=== PATIENT | female | born 1980 | race Caucasian/White ===

== ENCOUNTER → 2018-08-15 14:20 | Outpatient (CLI) | payer MEDICAID, SELFPAY ==
--- NOTE | 2018-08-15 14:28 | RAD_ITS ---
STUDY: X-RAY - RIGHT HAND, ATTENTION RIGHT THUMB. REASON FOR EXAM: Female, 38 years old. Pain following a recent injury. TECHNIQUE: 3 view(s) of the finger were obtained. COMPARISON: None. FINDINGS: Normal metacarpal head. Normal metacarpophalangeal joint. Normal proximal phalanx. Normal distal phalanx. Normal distal interphalangeal joint. RAD/Finger(s) Min 2 Views IMPRESSION: Normal x-ray examination of the finger. Electronically Signed: Luis Carlos Boone MD at 15:10 EDT Tel [phone], Service support ,
== END ==
PROVIDERS: Family Provider Family Medicine; PCP Family Medicine; Referring Provider Family Medicine; Visit Provider Family Medicine
DX: S63.601A Unspecified sprain of right thumb, initial encounter (principal)
CPT/HCPCS: 73140

== ENCOUNTER → 2019-08-14 16:47 | Outpatient (CLI) | payer MEDICAID, SELFPAY ==
[2019-08-14 17:39] LABS: Absolute Lymphocyte Count 1.88 X10^3/uL (0.83-4.51); Absolute Neutrophil Count 3.3 X10^3/uL (2.0-7.7); Basophil# 0.03 X10^3/uL; Basophil% 0.5 % (0-1); Eosinophil# 0.12 X10^3/uL; Eosinophils% 2.1 % (0-5); Hematocrit 39.3 % (37-47); Hemoglobin 13.2 g/dL (12.0-15.0); Lymphocyte # 1.88 X10^3/ul (4.0); Lymphocyte % 32.2 % (19-41); Mean Corp Hgb Conc 33.6 g/dL (32-36); Mean Corpuscular Hgb 31.7 pg (27.0-32.0); Mean Corpuscular Volume 94.5 fL (81-99); Mean Platelet Vol. 9.5 fl (6.2-12.0); Monocyte# 0.49 X10^3/uL; Monocyte% 8.4 % (0-10); NRBC Flagged by Analyzer 0 % (0-5); Neutrophil # 3.28 X10^3/uL (2.7-7.7); Neutrophil % 56.3 % (47-70); Platelet Count 216 K/mm3 (150-450); RBC Distribution Width CV 12.4 % (11.6-14.6); RBC Distribution Width SD 42.6 fl (35.1-43.9); Red Blood Count 4.16 M/mm3 (4.2-5.4); White Blood Count 5.8 K/mm3 (4.4-11.0)
[2019-08-14 18:07] LABS: Hemoglobin A1c 4.6 % (4.2-6.3)
[2019-08-14 18:16] LABS: Vitamin B12 448 pg/mL (211-911)
[2019-08-14 18:25] LABS: ALB/GLOB Ratio 1.3 RATIO (0.9-2.4); AST(SGOT) 12 U/L (15-37); Alanine Aminotransfer ALT/SGPT 14 U/L (13-56); Albumin, Serum 3.9 g/dL (3.2-5.0); Alkaline Phosphatase 60 U/L (45-117); Anion Gap 4 (5-15); BUN 17 mg/dL (7-18); BUN/Creat Ratio 20.2 RATIO (10-20); Calcium,Total 8.6 mg/dL (8.5-10.1); Chloride 107 mmol/L (98-107); Cholesterol 119 mg/dL (200); Creatinine, Serum 0.84 mg/dL (0.55-1.02); EST Glomerular Filtration Rate 80 mL/min (>60); Est Glom Filt Rate - Afr Amer 97 mL/min (>60); Ferritin 26 ng/mL (8-252); Free T3 2.2 pg/mL (2.18-3.98); Globulin 3.1 g/dL (2.2-4.2); Glucose 69 mg/dL (74-106); High Density Lipoprotein 46 mg/dL; Potassium 3.5 mmol/L (3.5-5.1); Sodium Level 139 mmol/L (136-145); T4 Free Direct 0.99 ng/dL (0.76-1.46); Thyroid Stim Hormone (TSH) 1.11 uIU/mL (0.358-3.74); Triglycerides 94 mg/dL; Very Low Density Lipoprotein 19 mg/dL (5-40)
[2019-08-18 12:30] LABS: ANTINUCLEAR ANTIBODIES DIRECT Negative (Negative)
== END ==
PROVIDERS: Family Provider Family Medicine; PCP Family Medicine; Referring Provider Family Medicine; Visit Provider Family Medicine
DX: R53.83 Other fatigue (principal); E16.2 Hypoglycemia, unspecified; Z13.220 Encounter for screening for lipoid disorders
CPT/HCPCS: 36415; 80053; 80061; 82607; 82728; 82746; 83036; 84439; 84443; 84481; 85025; 86038

== ENCOUNTER → 2019-12-01 12:19 | Outpatient (CLI) | payer MEDICAID, SELFPAY ==
[2014-12-30 02:53] VITALS: BMI 24.3
--- NOTE | 2019-12-01 12:23 | RAD_ITS ---
STUDY: X-RAY - ABDOMEN/PELVIS REASON FOR EXAM: Female, 39 years old. low abdominal pain, constipation TECHNIQUE: AP supine and upright views of the abdomen and pelvis. COMPARISON: None. FINDINGS: Normal visualized lung bases. Moderate to abundant fecal debris within the colon. Otherwise nonspecific gas pattern. There is no demonstrated free abdominal air. The visualized liver, spleen and kidneys are grossly normal in size and morphology. Bilateral radiopaque structures within the pelvis suggestive of tubal ligation clips. Otherwise unremarkable soft tissue structures. Normal visualized osseous structures. RAD/Abd Inc Decub and/or Erect IMPRESSION: Nonspecific gas pattern. Electronically Signed: Falguni Fernandez MD at 0:39 EST , Service support ,
== END ==
PROVIDERS: Family Provider Family Medicine; PCP Family Medicine; Referring Provider Family Medicine; Visit Provider Family Medicine
DX: R10.30 Lower abdominal pain, unspecified (principal)
CPT/HCPCS: 74019

== ENCOUNTER 2020-01-04 00:44 | Emergency (ER) | payer MEDICAID, SELFPAY ==
[2019-12-19 11:56] VITALS: BMI 24.3
[2020-01-04 00:45] VITALS: BP 103/60; PULSE 83; RESP 18; TEMP 36.6; O2SAT 100; BMI 19.5
--- NOTE | 2020-01-04 01:12 | ED.VISSUMM ---
- ER Visit Summary Date of Service: 01/04/20 Chief Complaint: Abdominal pain History of Present Illness: The patient is a 39 F who presents with lower abdominal pain that has been getting progressively worse over the past month. Patient states the pain has been constant tonight for the past several hours. Patient states her pain is over her lower abdomen. Patient states she has been taking mag oxide and MiraLAX and has been having daily bowel movements. Patient describes her pain as cramping, aching, and bloating. Patient states nothing makes it better or worse. Patient denies any nausea or vomiting. Patient denies any diarrhea, melena, or hematochezia. Patient denies any dysuria or hematuria. Patient states her last menstrual period was 3 weeks ago. Physical Examination: Vital signs are stable. Patient is afebrile. Patient is in no acute distress. Patient is resting comfortably on the bed. Oral mucosa is pink and moist. Neck is supple. Trachea is midline. There is no JVD. Heart was regular rate and rhythm. Lungs are clear and equal bilaterally. Abdomen is soft. Bowel sounds are normal. There is mild lower abdominal tenderness. There is no rebound or guarding noted. Cranial nerves II through XII are intact. There are no focal motor or sensory deficits noted. Test Results: CBC, comprehensive metabolic profile, urinalysis, and serum hCG were obtained were all within normal limits. Acute abdominal x-rays were obtained. There is a moderate amount of stool in the colon but there is no obstruction noted. Emergency Department Course and Treatment: Patient was given IV fluids here. Patient was ordered Bentyl but she declined. Patient was feeling better on reevaluation. Patient was instructed to follow-up with her primary care physician in 5 to 7 days. Patient was advised that she may need to see a helper shear operator for this. Patient understood and was agreeable with the plan. All questions were answered. Disposition: Discharge home Impression: Abdominal pain This note was generated with [employer] dictation software. It may contain incorrect words, spelling, and punctuation that were not noted in review of the chart prior to signing ED Disposition - Plan for ED Patient: Disposition: Home or Assisted Living Diagnosis: Abdominal pain Instructions: ABDOMINAL PAIN, Unknown Cause, (Female) Referrals: Lisandro Simons MD [Primary Care Provider] - 3-5 Days
[2020-01-04 01:22] LABS: Absolute Lymphocyte Count 2.31 X10^3/uL (0.83-4.51); Absolute Neutrophil Count 2.2 X10^3/uL (2.0-7.7); Basophil# 0.03 X10^3/uL; Basophil% 0.6 % (0-1); Eosinophil# 0.11 X10^3/uL; Eosinophils% 2.1 % (0-5); Hematocrit 41.6 % (37-47); Hemoglobin 14.7 g/dL (12.0-15.0); Lymphocyte # 2.31 X10^3/ul (4.0); Lymphocyte % 44.7 % (19-41); Mean Corp Hgb Conc 35.3 g/dL (32-36); Mean Corpuscular Hgb 32.1 pg (27.0-32.0); Mean Corpuscular Volume 90.8 fL (81-99); Mean Platelet Vol. 9.1 fl (6.2-12.0); Monocyte# 0.53 X10^3/uL; Monocyte% 10.3 % (0-10); NRBC Flagged by Analyzer 0 % (0-5); Neutrophil # 2.18 X10^3/uL (2.7-7.7); Neutrophil % 42.1 % (47-70); Platelet Count 229 K/mm3 (150-450); RBC Distribution Width CV 12.3 % (11.6-14.6); RBC Distribution Width SD 40.5 fl (35.1-43.9); Red Blood Count 4.58 M/mm3 (4.2-5.4); White Blood Count 5.2 K/mm3 (4.4-11.0)
[2020-01-04] MEDS: 0.9% Normal Saline 1,000 ML 1000 ML IV (01:25)
[2020-01-04 01:28] LABS: Internal QC Validated? YES +Cl - CLEAR BKGD; Pregnancy, Serum, hCG Quali. NEGATIVE Negative
[2020-01-04 01:35] LABS: ALB/GLOB Ratio 1.3 RATIO (0.9-2.4); AST(SGOT) 11 U/L (15-37); Alanine Aminotransfer ALT/SGPT 17 U/L (13-56); Albumin, Serum 3.9 g/dL (3.2-5.0); Alkaline Phosphatase 42 U/L (45-117); Anion Gap 5 (5-15); BUN 9 mg/dL (7-18); BUN/Creat Ratio 11.5 RATIO (10-20); Calcium,Total 9.1 mg/dL (8.5-10.1); Chloride 109 mmol/L (98-107); Creatinine, Serum 0.78 mg/dL (0.55-1.02); EST Glomerular Filtration Rate 87 mL/min (>60); Est Glom Filt Rate - Afr Amer 106 mL/min (>60); Glucose 94 mg/dL (74-106); Lipase 286 U/L (73-393); Potassium 3.5 mmol/L (3.5-5.1); Protein, Total 6.9 g/dL (6.4-8.2); Sodium Level 139 mmol/L (136-145)
[2020-01-04 01:45] LABS: Bacteria 0 SEEN /hpf (None Seen); Mucous, Urine 0 SEEN /hpf (<or=2+); Red Blood Cells-Urine 0 SEEN /hpf (0-5); White Blood Cells 0 SEEN /hpf (0-5)
[2020-01-04 01:47] LABS: Color, Urine Yellow (Yellow); Glucose, Dipstick Normal (Normal); Ketone-Dipstick 15 mg/dl (Negative); Leukocyte Esterase-Dipstick Negative /ul (Negative); Nitrite-Dipstick Negative (Negative); Occult Blood-Urine Negative /ul (Negative); Protein-Dipstick Negative (Negative); Specific Gravity, Urine 1.015 (1.002-1.030); Urine Bilirubin Dipstick Negative (Negative); Urine Clarity Sl. Cloudy (Clear); Urine Urobilinogen Normal (Normal)
--- NOTE | 2020-01-04 01:52 | RAD_ITS ---
STUDY: X-RAY - ACUTE ABDOMINAL SERIES REASON FOR EXAM: Female, 39 years old. C/O STOMACH PAIN AND LOW ABD BLOATING X 1 MONTH TECHNIQUE: Single view of the chest. Supine, and erect view(s) of the abdomen were obtained. COMPARISON: None. FINDINGS: The lungs are clear and expanded. Normal size heart. Normal mediastinum and марина. Normal visualized pulmonary arteries. Normal visualized aortic arch and descending thoracic aorta. There is a moderate amount of colonic fecal material. No free air identified. Nonobstructive bowel gas pattern. The soft tissue structures of the abdomen and pelvis are unremarkable. Normal visualized osseous structures. RAD/Acute Abdomen Inc Chest IMPRESSION: Correlate for constipation. Nonobstructive bowel gas pattern. Electronically Signed: Artur Gallegos, at 2:51 EST Tel , Service support ,
[2020-01-04 02:02] LABS: Squamous Epithelial Cells - UA 0-5 SEEN /hpf (5-10)
[2020-01-04 03:20] VITALS: BP 93/63; PULSE 70; RESP 15; O2SAT 97
== END 2020-01-04 03:23 | disposition home or self-care (01) ==
PROVIDERS: Emergency Provider Emergency Medicine; PCP Family Medicine
DX: R10.30 Lower abdominal pain, unspecified (principal); F41.9 Anxiety disorder, unspecified
CPT/HCPCS: 74022; 80053; 81001; 83690; 84703; 85025; 96360; 96361; 96372; 99283; J7030; A4216

== ENCOUNTER 2020-01-16 21:07 | Emergency (ER) | payer MEDICAID, SELFPAY ==
[2020-01-16 21:07] VITALS: BP 115/72; PULSE 78; RESP 16; TEMP 36.4; O2SAT 100; BMI 19.6
--- NOTE | 2020-01-16 21:45 | CT_ITS ---
STUDY: CT ABDOMEN AND PELVIS WITH CONTRAST REASON FOR EXAM: Female, 39 years old. INTERMITTENT ABD PAIN X MOS, WORSE TONIGHT. BLOATING. RADIATION DOSAGE (If Supplied By Facility): CTDIvol = ( ) mGy, DLP = ( ) mGycm TECHNIQUE: Transaxial images were obtained from the dome of the diaphragm to the symphysis pubis without oral contrast. Oral and amp; IV Gastrografin and amp; 100mL Isovue-370 was administered. Sagittal and coronal images were reconstructed. Individualized dose optimization techniques were used for this CT. COMPARISON: None. FINDINGS: The visualized lung bases are unremarkable. The visualized portions of the heart are within normal limits. Normal liver. Normal gallbladder and extrahepatic biliary system. Normal spleen. Normal pancreas. Normal bilateral adrenal glands. Normal right kidney. Normal left kidney. Normal visualized stomach. Normal small intestine. Increased fecal debris within the colon suggestive of constipation. There is non-visualization of the appendix. Normal abdominal aorta. Normal inferior vena cava. Normal retroperitoneum. Normal urinary bladder. Anteverted uterus. Normal abdominal wall. Normal osseous structures. CT/Abdomen/Pelvis WITH Contrast IMPRESSION: Concern for constipation. No bowel obstruction or focal inflammatory process throughout the gastrointestinal tract. Electronically Signed: Falguni Fernandez MD at 0:40 EST , Service support ,
[2020-01-16 22:25] LABS: Mucous, Urine 0 SEEN /hpf (<or=2+); Red Blood Cells-Urine 0 SEEN /hpf (0-5); White Blood Cells 0 SEEN /hpf (0-5)
[2020-01-16 22:27] LABS: Color, Urine Straw (Yellow); Glucose, Dipstick Normal (Normal); Ketone-Dipstick 5 mg/dl (Negative); Leukocyte Esterase-Dipstick Negative /ul (Negative); Nitrite-Dipstick Negative (Negative); Occult Blood-Urine Negative /ul (Negative); Protein-Dipstick Negative (Negative); Urine Bilirubin Dipstick Negative (Negative); Urine Clarity Clear (Clear); Urine Urobilinogen Normal (Normal)
[2020-01-16 22:29] LABS: Absolute Neutrophil Count 2.6 X10^3/uL (2.0-7.7); Basophil# 0.03 X10^3/uL; Basophil% 0.6 % (0-1); Eosinophil# 0.06 X10^3/uL; Eosinophils% 1.2 % (0-5); Hematocrit 39.7 % (37-47); Lymphocyte % 34.8 % (19-41); Mean Corp Hgb Conc 35.3 g/dL (32-36); Mean Corpuscular Hgb 32.6 pg (27.0-32.0); Mean Corpuscular Volume 92.3 fL (81-99); Mean Platelet Vol. 9.5 fl (6.2-12.0); Monocyte# 0.48 X10^3/uL; Monocyte% 9.8 % (0-10); NRBC Flagged by Analyzer 0 % (0-5); Neutrophil % 53.4 % (47-70); Platelet Count 205 K/mm3 (150-450); RBC Distribution Width CV 12.6 % (11.6-14.6); RBC Distribution Width SD 42.2 fl (35.1-43.9); White Blood Count 4.9 K/mm3 (4.4-11.0)
[2020-01-16] MEDS: 0.9% Normal Saline 1,000 ML 1000 ML IV (22:30)
[2020-01-16 22:34] LABS: Bacteria RARE /hpf (None Seen); Squamous Epithelial Cells - UA 0-5 SEEN /hpf (5-10)
[2020-01-16 22:38] LABS: Internal QC Validated? YES +Cl - CLEAR BKGD; Pregnancy, Serum, hCG Quali. NEGATIVE Negative
[2020-01-16 22:45] LABS: ALB/GLOB Ratio 1.4 RATIO (0.9-2.4); AST(SGOT) 15 U/L (15-37); Alanine Aminotransfer ALT/SGPT 16 U/L (13-56); Albumin, Serum 4.2 g/dL (3.2-5.0); Alkaline Phosphatase 40 U/L (45-117); Anion Gap 5 (5-15); BUN 15 mg/dL (7-18); BUN/Creat Ratio 18.3 RATIO (10-20); Chloride 107 mmol/L (98-107); Creatinine, Serum 0.82 mg/dL (0.55-1.02); EST Glomerular Filtration Rate 83 mL/min (>60); Est Glom Filt Rate - Afr Amer 100 mL/min (>60); Estimated Creatinine Clearance 76.21 ml/min; Globulin 2.9 g/dL (2.2-4.2); Glucose 87 mg/dL (74-106); Potassium 3.6 mmol/L (3.5-5.1); Protein, Total 7.1 g/dL (6.4-8.2); Sodium Level 140 mmol/L (136-145)
--- NOTE | 2020-01-16 23:12 | ED.DCSUM_ITS ---
- ER Visit Summary Date of Service: 01/16/20 Chief Complaint: Abdominal pain History of Present Illness: The patient is a [address] Lisandro Simons. She reports that she has lower abdominal pain that began an hour ago. Said cramping pressure. 2 out of 10 currently and 6 out of 10 at worst. It is worsened by sitting up. Is relieved by having a bowel movement. She denies any nausea or vomiting. No diarrhea. Her last bowel movements today. No melena medication. No dysuria or frequency. Last menstrual period was a week ago. No vaginal bleeding or discharge. Patient reports that she has had these symptoms intermittently for approximately 1 month. Last episode was 3 days ago. She states that the episodes last 1-1/2 to 2 days. She denies any fever or chills. Patient reports that she does have a family history of diverticulitis. She denies family history of Crohn's or ulcerative colitis. Physical Examination: Vitals: Stable. Afebrile. General: Well-nourished and well-developed. Head: Normocephalic atraumatic. Neck: Supple, no lymphadenopathy. No JVD. Nontender. Cardiovascular: Regular rate and rhythm. No murmurs. Respiratory: No respiratory distress. Clear to auscultation bilaterally. Abdominal: Soft, nontender, nondistended, normal bowel sounds. No guarding, rebound, or peritoneal signs. Back: Nontender. Extremities: Nontender, no edema. Skin: Normal color, no rash. Neurologic: Alert and oriented ?3. Cranial nerves II through XII are intact. Normal strength and sensation. Psych: Normal affect. Test Results: CBC is normal. Chem-7 is normal. LFTs are marked for total bili of 1.5 and alk phos of 40. UA is negative. test is negative. Clinical Impression(s) from Imaging Studies Abdomen/Pelvis CT 01/16/20 21:45 IMPRESSION: Concern for constipation. No bowel obstruction or focal inflammatory process throughout the gastrointestinal tract. Electronically Signed: Falguni Fernandez MD at 0:40 EST , Service support , Emergency Department Course and Treatment: Patient refused pain medications. She is resting comfortably. Treatment Plan: Prolonged discussion with the patient about symptomatic management of constipation. She has been through a great deal of this already. She will be discharged with instructions to follow-up Dr. Lisandro Simons this week for further evaluation. She also given the name of Dr. Flood for a possible colonoscopy. Return to the emergency department for any worsening symptoms. Disposition: To home in improved and stable condition. Impression: 1. Constipation. This note was generated with [employer] dictation software. It may contain incorrect words, spelling, and punctuation that were not noted in review of the chart prior to signing ED Disposition - Plan for ED Patient: Instructions: CONSTIPATION (Adult) Referrals: Lisandro Simons MD [Primary Care Provider] - 3-5 Days if not improving Amandeep Flood MD [STAFF PHYSICIAN] - 1-2 Weeks
[2020-01-17 00:37] VITALS: BP 93/68; PULSE 79; RESP 16; O2SAT 100
== END 2020-01-17 01:09 | disposition home or self-care (01) ==
LOC: ED 21:48
PROVIDERS: Emergency Provider Emergency Medicine; PCP Family Medicine
DX: K59.00 Constipation, unspecified (principal); F41.9 Anxiety disorder, unspecified
CPT/HCPCS: 74177; 80053; 81001; 84703; 85025; 96360; 99283; J7030; Q9967; A4216

== ENCOUNTER → 2020-04-01 12:03 | Outpatient (CLI) | payer MEDICAID, SELFPAY ==
[2020-04-04 22:08] LABS: Alternaria alternata <0.10 kU/L (Class 0); Aspergillus fumigatus <0.10 kU/L (Class 0); Bahia Grass <0.10 kU/L (Class 0); Bermuda Grass <0.10 kU/L (Class 0); Bluegrass, Kentucky <0.10 kU/L (Class 0); Cat Hair/Dander, Standard <0.10 kU/L (Class 0); Cedar, Mountain <0.10 kU/L (Class 0); Cladosporium herbarum <0.10 kU/L (Class 0); Cockroach, American <0.10 kU/L (Class 0); D farinae Mite 0.17 kU/L (Class 0/I); D pteronyssinus 0.22 kU/L (Class 0/I); Dog Epithelia <0.10 kU/L (Class 0); Elm, American White <0.10 kU/L (Class 0); Hazelnut Tree <0.10 kU/L (Class 0); Hickory, White <0.10 kU/L (Class 0); Johnson Grass <0.10 kU/L (Class 0); Maple/Box Elder <0.10 kU/L (Class 0); Mucor racemosus <0.10 kU/L (Class 0); Mugwort <0.10 kU/L (Class 0); Mulberry, White <0.10 kU/L (Class 0); Oak, White <0.10 kU/L (Class 0); Penicillium chrysogen <0.10 kU/L (Class 0); Pigweed, Rough <0.10 kU/L (Class 0); Plantain, English <0.10 kU/L (Class 0); Ragweed, Short/Common <0.10 kU/L (Class 0); Sheep Sorrel(Dock) <0.10 kU/L (Class 0); Stemphylium herbarum <0.10 kU/L (Class 0); Sweet Gum <0.10 kU/L (Class 0); Sycamore, American <0.10 kU/L (Class 0)
[2020-04-05 03:51] LABS: Nettle <0.10 kU/L (Class 0)
== END ==
PROVIDERS: PCP Family Medicine; Visit Provider Family Medicine
DX: J30.9 Allergic rhinitis, unspecified (principal)
CPT/HCPCS: 36415; 86003

== ENCOUNTER 2020-08-08 20:44 | Emergency (ER) | payer MEDICAID, SELFPAY ==
[2020-08-08 20:45] VITALS: BP 102/82; PULSE 80; RESP 15; TEMP 36.4; O2SAT 100; BMI 20.8
--- NOTE | 2020-08-08 20:50 | EKG12_ITS ---
Test Reason : CP Blood Pressure : / mmHG Vent. Rate : 075 BPM Atrial Rate : 075 BPM P-R Int : 132 ms QRS Dur : 072 ms QT Int : 386 ms P-R-T Axes : 069 031 045 degrees QTc Int : 431 ms Normal sinus rhythm Normal ECG Confirmed by NIKI REYNOSO MD ([id number]), photography editor LAISHA CHEW ([id number]) on 08/10/2020 4:11:24 PM Referred By: REYNOLD Confirmed By:NIKI REYNOSO MD
[2020-08-08] MEDS: Aspirin 81 MG TAB.CHEW 324 MG PO (21:06)
--- NOTE | 2020-08-08 21:10 | ED.DCSUM_ITS ---
- ER Visit Summary Date of Service: 08/08/20 Chief Complaint: Intermittent left-sided chest pain History of Present Illness: The patient is a 40 F prior kidney stones and irritable bowel syndrome. Patient states that today she had intermittent left- sided chest pain. Denies hemoptysis. No travel, surgery or immobilization. No leg pain or swelling. No history of DVT or PE. No family history of either cardiac disease or clotting disorder. She is never had any cardiac disease herself. Previously smoked but has since quit. Pain is not pleuritic. Nothing specifically makes it better or worse. She denies any nausea or diaphoresis. It is not exertional. She has had a tubal ligation and is not on control pills. Physical Examination: Well-appearing young female. Vital signs are stable afebrile. Pulse ox 100% room air no signs hypoxia. HEENT exam unremarkable. N lacie nontender no lymphadenopathy. Lungs clear to auscultation bilaterally. Heart regular rhythm no murmur rate about 80. Chest wall nontender. Abdomen soft nontender normal bowel sounds no peritoneal signs. Extremities moves all 4. Calves nontender without edema or cords. Upper and lower extremities neurovascular intact. Equal symmetrical radial pulses. Back nontender. Neurologically she is awake alert with no focal motor deficits. Test Results: EKG shows a normal sinus rhythm rate of 75 with no acute signs of [place] or ischemia. Unchanged from prior EKG from 2001. White count is 6. Hemoglobin 14. Chemistries normal normal creatinine and gap. Troponin normal. Chest x-ray portable 1 view read by myself and radiologist shows no acute abnormality. Normal cardiac silhouette. No infiltrate. No obvious pneumothorax. D-dimer is less than 0.27 normal. Repeat exam patient is doing well. She will be discharged home with outpatient follow-up as needed. Emergency Department Course and Treatment: Patient with atypical nonreproducible chest and back pain. Clinically would be unlikely to be cardiac. She has no risk factors for DVT or PE or prior history. She undergo cardiac work-up. Receive p.o. aspirin. I am doing a d-dimer. Treatment Plan: Follow-up with your doctor. Return if worse. Tylenol Motrin for pain. Disposition: discharge Impression: Atypical chest pain This note was generated with [employer] dictation software. It may contain incorrect words, spelling, and punctuation that were not noted in review of the chart prior to signing ED Disposition - Plan for ED Patient: Disposition: Home or Assisted Living Instructions: ED Chest Pain Atypical Unkn Cause Referrals: Lisandro Simons MD [Primary Care Provider] - 3-5 Days if not improving Additional Instructions: Treatment Tylenol for pain. Your EKG, chest x-ray and labs were unremarkable. Follow-up with your doctor if not improving or return emergency department if feeling worse.
--- NOTE | 2020-08-08 21:16 | RAD_ITS ---
STUDY: X-RAY CHEST REASON FOR EXAM: Female, 40 years old. LEFT UPPER CHEST PAIN RADIATING TO BACK AND SHOULDER INTERMITTENT TODAY TECHNIQUE: Frontal view of the chest COMPARISON: None. FINDINGS: Examination is moderately limited due to overpenetration with poor visualization of lung parenchyma. There is no demonstrated pleural abnormality. Normal size heart. Normal mediastinum and марина. Normal visualized pulmonary arteries. Normal visualized aortic arch and descending thoracic aorta. Normal visualized thoracic spine. Normal visualized ribs, clavicles, and shoulders. There is no demonstrated abnormality of the visualized soft tissue structures of the upper abdomen. RAD/Chest 1 View (Portable) IMPRESSION: Limited negative exam. Electronically Signed: Michael Barbosa, at 21:32 EDT Tel , Service support ,
[2020-08-08 21:18] LABS: Absolute Lymphocyte Count 1.71 X10^3/uL (0.83-4.51); Absolute Neutrophil Count 3.8 X10^3/uL (2.0-7.7); Basophil# 0.04 X10^3/uL; Basophil% 0.7 % (0-1); Eosinophil# 0.08 X10^3/uL; Eosinophils% 1.3 % (0-5); Hematocrit 40.2 % (37-47); Hemoglobin 14.1 g/dL (12.0-15.0); Lymphocyte # 1.71 X10^3/ul (4.0); Lymphocyte % 28.1 % (19-41); Mean Corp Hgb Conc 35.1 g/dL (32-36); Mean Corpuscular Hgb 32.9 pg (27.0-32.0); Mean Corpuscular Volume 93.9 fL (81-99); Mean Platelet Vol. 9.1 fl (6.2-12.0); Monocyte# 0.47 X10^3/uL; Monocyte% 7.7 % (0-10); NRBC Flagged by Analyzer 0 % (0-5); Neutrophil # 3.76 X10^3/uL (2.7-7.7); Neutrophil % 61.9 % (47-70); Platelet Count 239 K/mm3 (150-450); RBC Distribution Width CV 12.6 % (11.6-14.6); RBC Distribution Width SD 43.2 fl (35.1-43.9); Red Blood Count 4.28 M/mm3 (4.2-5.4); White Blood Count 6.1 K/mm3 (4.4-11.0)
[2020-08-08 21:36] LABS: Anion Gap 5 (5-15); BUN 18 mg/dL (7-18); BUN/Creat Ratio 21.4 RATIO (10-20); Calcium,Total 8.7 mg/dL (8.5-10.1); Chloride 106 mmol/L (98-107); Creatinine, Serum 0.84 mg/dL (0.55-1.02); EST Glomerular Filtration Rate 80 mL/min (>60); Est Glom Filt Rate - Afr Amer 97 mL/min (>60); Estimated Creatinine Clearance 77.65 ml/min; Glucose 94 mg/dL (74-106); Potassium 3.6 mmol/L (3.5-5.1); Sodium Level 139 mmol/L (136-145)
[2020-08-08 21:46] LABS: D-Dimer Quantitative (DVT/PE) <= 0.27 FEU/ug/m (0.27-0.49)
--- NOTE | 2020-08-08 21:46 | ED.DEP ---
ED Disposition - Plan for ED Patient: Disposition: Home or Assisted Living Instructions: ED Chest Pain Atypical Unkn Cause Referrals: Lisandro Simons MD [Primary Care Provider] - 3-5 Days if not improving Additional Instructions: Treatment Tylenol for pain. Your EKG, chest x-ray and labs were unremarkable. Follow-up with your doctor if not improving or return emergency department if feeling worse.
[2020-08-08 21:56] VITALS: PULSE 77; RESP 16; O2SAT 99
== END 2020-08-08 21:59 | disposition home or self-care (01) ==
PROVIDERS: Emergency Provider Emergency Medicine; PCP Family Medicine
DX: R07.89 Other chest pain (principal); M54.9 Dorsalgia, unspecified; Z87.442 Personal history of urinary calculi; K58.9 Irritable bowel syndrome, unspecified; Z87.891 Personal history of nicotine dependence
CPT/HCPCS: 71045; 80048; 84484; 85025; 85379; 93005; 99284; A4216

== ENCOUNTER → 2020-09-20 16:12 | Outpatient (CLI) | payer MEDICAID, SELFPAY | PROVIDERS: PCP Family Medicine; Visit Provider Family Medicine | DX: R09.89 Other specified symptoms and signs involving the circulatory and respiratory systems (principal) | CPT/HCPCS: 87635; U0003 ==

== ENCOUNTER 2020-12-28 19:46 | Emergency (ER) | payer MEDICAID, SELFPAY ==
[2020-10-30 13:13] VITALS: BMI 21.4
[2020-12-28 19:47] VITALS: BP 116/76; PULSE 82; RESP 16; TEMP 36.3; O2SAT 100; BMI 22.6
--- NOTE | 2020-12-28 19:47 | ED.RN ---
CALLED FOR EKG PER RN REQUEST, PULLED OLD EKGS FOR
--- NOTE | 2020-12-28 19:53 | EKG12_ITS ---
Test Reason : CP Blood Pressure : / mmHG Vent. Rate : 081 BPM Atrial Rate : 081 BPM P-R Int : 140 ms QRS Dur : 070 ms QT Int : 382 ms P-R-T Axes : 059 030 054 degrees QTc Int : 443 ms Normal sinus rhythm Normal ECG Confirmed by JAMISON MENDOZA, HANNY ([id number]), editor dictionary ANDREA CHO ([id number]) on 12/30/2020 10:31:58 AM Referred By: JERRY Confirmed By:HANNY SWIFT MD
[2020-12-28] MEDS: Aspirin 81 MG TAB.CHEW 324 MG PO (20:01)
[2020-12-28 20:05] LABS: Absolute Lymphocyte Count 1.46 X10^3/uL (0.83-4.51); Absolute Neutrophil Count 2.9 X10^3/uL (2.0-7.7); Basophil# 0.01 X10^3/uL; Basophil% 0.2 % (0-1); Eosinophil# 0.07 X10^3/uL; Eosinophils% 1.4 % (0-5); Hematocrit 40.8 % (37-47); Hemoglobin 14.1 g/dL (12.0-15.0); Lymphocyte # 1.46 X10^3/ul (4.0); Lymphocyte % 29.4 % (19-41); Mean Corp Hgb Conc 34.6 g/dL (32-36); Mean Corpuscular Hgb 32.9 pg (27.0-32.0); Mean Corpuscular Volume 95.3 fL (81-99); Mean Platelet Vol. 8.5 fl (6.2-12.0); Monocyte# 0.48 X10^3/uL; Monocyte% 9.7 % (0-10); NRBC Flagged by Analyzer 0 % (0-5); Neutrophil # 2.93 X10^3/uL (2.7-7.7); Neutrophil % 59.1 % (47-70); Platelet Count 240 K/mm3 (150-450); RBC Distribution Width CV 12.8 % (11.6-14.6); RBC Distribution Width SD 45.1 fl (35.1-43.9); Red Blood Count 4.28 M/mm3 (4.2-5.4)
--- NOTE | 2020-12-28 20:12 | ED.VIS.GEN ---
History of Present Illness Chief Complaint: Chest Pain Informant: Patient Onset: Today Maximum Severity: Mild Narrative: The patient presents with left parascapular shoulder pain that began sometime around 5:00 today. 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 She spoke with her physician today about the above and he sent her in for evaluation. She has no history of TX PE or DVT she is resting comfortably in the bed she had no coronavirus exposures no fever no cough she has full range of motion of the shoulder just complaints of a diffuse nonspecific pain that is in the anterior shoulder and also in the parascapular left shoulder hand exams unremarkable normal function she denies as she has had tubal ligation Past Medical History - Allergies and Home Meds Allergies/Adverse Reactions: Allergies codeine Allergy (Verified 12/28/20 19:50) Unknown Primary Care Physician: Lisandro Simons MD [Primary Care Provider] - Past Medical History: - Smoking Status: Never smoker Review of Systems ROS: - No history of TX PE or DVT General: Denies: Chills, Fever, Sweats Eyes: Denies: Visual changes - bilaterally, Diplopia ENT: Denies: Rhinorrhea, Sore throat Cardiovascular: Denies: Chest pain, Palpitations Respiratory: Denies: Dyspnea, Cough, Dyspnea on exertion Gastrointestinal: Denies: Abdominal pain, Nausea, Vomiting, Diarrhea, Melena, Hematochezia Genitourinary: Denies: Dysuria, Hematuria, Frequency Musculoskeletal: Reports: Extremity Pain. Denies: Back pain Skin: Denies: Rash, Wounds Neurological: Denies: Headache, Weakness, Numbness Physical Exam Vital Signs/Narrative: Vital Signs Temp Pulse Resp BP Pulse Ox 12/28/20 19:47 97.4 F L 82 16 116/76 100 General: Well nourished, Well developed, No Acute Distress Head: Normocephalic, Atraumatic Eyes: Perrl, EOMI ENT: Moist mucous membranes, No rhinorrhea Neck: Supple, Nontender Cardiovascular: Regular rate, Regular rhythm, No murmurs Respiratory: No distress, CTA bilaterally, Chest nontender Abdomen: Soft, Nontender, Nondistended, Normal bowel sounds Back: Nontender, Normal Inspection Extremities: No edema, - - Left shoulder she has full range of motion of the shoulder there is no instability warmth tenderness or focal area of discomfort rather diffuse in the anterior shoulder and also parascapular, her range of motion is normal her left arm elbow forearm hand wrist pulse exam finger exam unremarkable Skin: Normal color, No rash Neurological: Alert, Oriented x3, Cranial nerves II-XII grossly intact, Normal Strength, Normal Sensation Psychological: Normal affect, Normal Mood Diagnostic/Tx/Re-eval - Medical Decision Making Given all of the above EKG is done shows a sinus rhythm rate of 81 no acute injury pattern, ED screening evaluation labs x-ray Patient's 1 view chest x-ray to my review there is nothing acute radiology concurs see those reports, all of her ED screen evaluation labs are generally unremarkable occluding D-dimer, treated with IV Toradol, explained the test results to her in the ED evaluation the exact etiology of symptoms unclear she is comfortable discharge home follow-up with outpatient providers Tylenol Naprosyn as an outpatient return for change in symptoms Home stable Final impression is left-sided shoulder parascapular pain ED Disposition - Plan for ED Patient: Instructions: ED Chest Pain, Uncertain Cause Prescriptions: Naproxen [Naprosyn] 500 mg PO BID PRN #14 tab Prescription Printed Referrals: Lisandro Simons MD [Primary Care Provider] -
--- NOTE | 2020-12-28 20:15 | RAD_ITS ---
STUDY: X-RAY CHEST REASON FOR EXAM: Female, 40 years old. CHEST PAIN. TECHNIQUE: AP portable COMPARISON: 08/08/2020 FINDINGS: The lungs are clear and expanded. There is no demonstrated pleural abnormality. Normal size heart. Normal mediastinum and марина. Normal visualized pulmonary arteries. Normal visualized aortic arch and descending thoracic aorta. Normal visualized thoracic spine. Normal visualized ribs, clavicles, and shoulders. There is no demonstrated abnormality of the visualized soft tissue structures of the upper abdomen No significant change since prior exam. RAD/Chest 1 View (Portable) IMPRESSION: Normal x-ray examination of the chest. Electronically Signed: Scar Parsons MD at 20:48 EST , Service support ,
[2020-12-28 20:19] LABS: D-Dimer Quantitative (DVT/PE) <= 0.27 FEU/ug/m (0.27-0.49)
[2020-12-28 20:22] VITALS: BP 99/69; PULSE 75; RESP 16; O2SAT 99
[2020-12-28 20:23] LABS: BNP,B-Type NATRIURETIC PEPTIDE 18.5 pg/mL (0-100)
[2020-12-28 20:24] LABS: Anion Gap 4 (5-15); BUN 15 mg/dL (7-18); Calcium,Total 8.4 mg/dL (8.5-10.1); Chloride 108 mmol/L (98-107); Creatinine, Serum 0.79 mg/dL (0.55-1.02); EST Glomerular Filtration Rate 86 mL/min (>60); Est Glom Filt Rate - Afr Amer 104 mL/min (>60); Estimated Creatinine Clearance 82.56 ml/min; Glucose 97 mg/dL (74-106); Potassium 3.4 mmol/L (3.5-5.1); Sodium Level 140 mmol/L (136-145)
[2020-12-28 21:00] VITALS: BP 90/61; PULSE 68; RESP 18; O2SAT 99
[2020-12-28 21:51] VITALS: BP 97/65; PULSE 66; RESP 15; O2SAT 99
== END 2020-12-28 21:52 | disposition home or self-care (01) ==
LOC: ED 20:30
PROVIDERS: Emergency Provider Emergency Medicine; PCP Family Medicine
DX: R07.9 Chest pain, unspecified (principal); Z88.5 Allergy status to narcotic agent
CPT/HCPCS: 71045; 80048; 83880; 84484; 85025; 85379; 93005; 96374; 99284; A4216

== ENCOUNTER 2021-03-06 19:33 | Emergency (ER) | payer MEDICAID, SELFPAY ==
[2021-03-06 19:34] VITALS: BP 107/68; PULSE 76; RESP 16; TEMP 36.7; O2SAT 100; BMI 21.1
--- NOTE | 2021-03-06 19:53 | CT_ITS ---
STUDY: CT ABDOMEN AND PELVIS WITH CONTRAST REASON FOR EXAM: Female, 40 years old. diffuse abdominal pain RADIATION DOSAGE (If Supplied By Facility): CTDIvol = ( 8.55 ) mGy, DLP = ( 345.63 ) mGycm TECHNIQUE: Transaxial images were obtained from the dome of the diaphragm to the symphysis pubis without oral contrast. IV 100mL Isovue-370 was administered. Sagittal and coronal images were reconstructed. Individualized dose optimization techniques were used for this CT. COMPARISON: 01/16/2020 FINDINGS: The visualized lung bases are unremarkable. The visualized portions of the heart are within normal limits. Normal liver. Normal gallbladder and extrahepatic biliary system. Normal spleen. Normal pancreas. Normal bilateral adrenal glands. Normal right kidney. Normal left kidney. Evaluation of the GI tract is limited by absence of oral contrast. Cannot exclude stomach wall thickening. No dilated loops of bowel or evidence for obstruction. Cannot exclude segmental thickening of the sun of the small or large bowel. Cannot exclude enteritis or colitis. Marked diffuse fecal retention. Appendix within normal limits. Normal abdominal aorta. Normal inferior vena cava. Normal retroperitoneum. Normal urinary bladder. Normal visualized uterus. Normal abdominal wall. Normal osseous structures. CT/Abdomen/Pelvis W IV Cont ONLY IMPRESSION: Marked diffuse fecal retention, otherwise negative. Electronically Signed: Bebeto Ward MD at 21:38 EDT , Service support ,
--- NOTE | 2021-03-06 19:54 | ED.DCSUM_ITS ---
History of Present Illness Chief Complaint: Abd Pain Informant: Patient - Abdominal Pain/Flank Pain Onset: Hours - several Context: Gradual Onset - but quick Timing: Continuous Quality: Aching, Cramping Location: - - diffuse but more across lower abd, nonlateralizing Current Severity: Severe Maximum Severity: Severe Worsened by: Nothing Relieved by: - - transiently improved after having a fairly normal BM - Nausea/Vomiting/Emesis GI Symptom: Negative for: Nausea, Vomiting - Diarrhea/Melena/Hematochezia GI Symptom: Negative for: Diarrhea, Melena, Hematochezia Associated Symptoms: Negative for: Dysuria, Frequency, Hematuria, Urgency Narrative: 40-year-old female with a history of irritable bowel syndrome that is constipation-prominent, presenting with cramping that feels like her irritable bowel syndrome pain, however she has been having it last longer than usual and much worse than usual. She states it feels like the pain is moving around suggesting intestinal-related pain. Last normal menstrual cycle was 02/13, she has been regular. History of a and a tubal like ectomy no other abdominal surgeries. Nothing recent. No recent illness, she was feeling well prior to this. She states her bowel movements have been irregular this last week, not necessarily extremely constipated but when she has this pain it usually is related to that so she took some milk of magnesia when it started, she did have a bowel movement but it only mildly improved her discomfort, then returned more severe like it was prior to the bowel movement. There was no hematochezia or melena. She says she had a decent sized bowel movement that was otherwise fairly normal for her. - Past Medical History (1) Irritable bowel syndrome (IBS) Status: Chronic (2) Allergies Status: Chronic Past Medical History - Allergies and Home Meds Allergies/Adverse Reactions: Allergies codeine Allergy (Verified 12/28/20 19:50) Unknown Primary Care Physician: Lisandro Simons MD [Primary Care Provider] - Surgical History: - - Dissection, bilateral tubal lipectomy Lives: With Family Smoking Status: Former smoker Review of Systems General: Denies: Chills, Fever, Sweats Eyes: Denies: Visual changes - bilaterally, Diplopia ENT: Denies: Rhinorrhea, Sore throat Cardiovascular: Denies: Chest pain, Palpitations Respiratory: Denies: Dyspnea, Cough, Dyspnea on exertion Gastrointestinal: Reports: Abdominal pain, Constipation - See HPI. Denies: Nausea, Vomiting, Diarrhea, Melena, Hematochezia Genitourinary: Denies: Dysuria, Hematuria, Frequency Musculoskeletal: Denies: Myalgias, Neck pain, Back pain, Swelling, Extremity Pain Skin: Denies: Rash, Wounds Neurological: Denies: Headache, Weakness, Numbness Physical Exam Vital Signs/Narrative: Vital Signs Temp Pulse Resp BP Pulse Ox 03/06/21 19:34 98.0 F 76 16 107/68 100 Inital Vital Signs reviewed: Yes General: Well nourished, Well developed, Acute Distress - Painful uncomfortable. Able to converse. Head: Normocephalic, Atraumatic Eyes: Perrl, EOMI ENT: Moist mucous membranes, No rhinorrhea Neck: Supple, Nontender Cardiovascular: Regular rate, Regular rhythm, No murmurs. Negative for: Tachycardia Respiratory: No distress, CTA bilaterally, Chest nontender Abdomen: Soft, Nondistended, Normal bowel sounds, No masses, Tender - Diffusely, worse in the lower half of the abdomen, nonlateralizing, above the pelvis.. Negative for: Guarding, Rebound tenderness Back: Nontender, Normal Inspection. Negative for: CVA tenderness Extremities: Nontender, No edema. Negative for: Calf Tenderness Skin: Normal color, No rash, No Trauma Neurological: Alert, Oriented x3, Cranial nerves II-XII grossly intact, Normal Strength, Normal Sensation, Normal Gait Psychological: Normal affect, Normal Mood Diagnostic/Tx/Re-eval Impressions Abdomen/Pelvis CT 03/06/21 19:53 IMPRESSION: Marked diffuse fecal retention, otherwise negative. Electronically Signed: Bebeto Ward MD at 21:38 EDT , Service support , 03/06/21 19:53 Abdomen/Pelvis W IV Cont ONLY [CT] Stat Laboratory Results 03/06/21 03/06/21 03/06/21 19:50 19:50 19:50 WBC 5.2 RBC 4.50 Hgb 14.6 Hct 42.3 MCV 94.0 MCH 32.4 H MCHC 34.5 RDW Std Deviation 43.9 RDW Coeff of Darci 12.8 Plt Count 287 MPV 9.0 Immature Gran % (Auto) 0.200 Neut % (Auto) 61.1 Lymph % (Auto) 28.8 [place] % (Auto) 8.7 Eos % (Auto) 0.8 Baso % (Auto) 0.4 Absolute Neuts (auto) 3.2 Absolute Lymphs (auto) 1.49 Nucleated RBC % 0 Sodium 137 Potassium 3.2 L Chloride 103 Carbon Dioxide 28.0 Anion Gap 6 BUN 13 Creatinine 0.79 Estim Creat Clear Calc 82.56 Est GFR (MDRD) Af Amer 104 Est GFR (MDRD) Non-Af 86 BUN/Creatinine Ratio 16.4 Glucose 119 H Calcium 8.9 Total Bilirubin 1.20 H AST 14 L ALT 17 Alkaline Phosphatase 54 Total Protein 7.1 Albumin 4.0 Globulin 3.1 Albumin/Globulin Ratio 1.3 Lipase 166 Urine Color Straw Urine Clarity Sl. Cloudy Urine pH 8.0 Ur Specific [place] 1.015 Urine Protein Negative Urine Glucose (UA) Normal Urine Ketones Negative Urine Occult Blood Negative Urine Nitrite Negative Urine Bilirubin Negative Urine Urobilinogen Normal Ur Leukocyte Esterase 25 H Urine RBC 0 SEEN Urine WBC 0 SEEN Ur Squamous Epith Cells 0-5 SEEN Urine Bacteria 1+ Urine Mucus 0 SEEN Urine Test Cancelled 03/06/21 20:16 WBC RBC Hgb Hct MCV MCH MCHC RDW Std Deviation RDW Coeff of Darci Plt Count MPV Immature Gran % (Auto) Neut % (Auto) Lymph % (Auto) [place] % (Auto) Eos % (Auto) Baso % (Auto) Absolute Neuts (auto) Absolute Lymphs (auto) Nucleated RBC % Sodium Potassium Chloride Carbon Dioxide Anion Gap BUN Creatinine Estim Creat Clear Calc Est GFR (MDRD) Af Amer Est GFR (MDRD) Non-Af BUN/Creatinine Ratio Glucose Calcium Total Bilirubin AST ALT Alkaline Phosphatase Total Protein Albumin Globulin Albumin/Globulin Ratio Lipase Urine Color Urine Clarity Urine pH Ur Specific [place] Urine Protein Urine Glucose (UA) Urine Ketones Urine Occult Blood Urine Nitrite Urine Bilirubin Urine Urobilinogen Ur Leukocyte Esterase Urine RBC Urine WBC Ur Squamous Epith Cells Urine Bacteria Urine Mucus Urine Test Negative - Medical Decision Making Patient was treated with IM dicyclomine in addition to morphine, Toradol, prophylactic Zofran. She feels much better on reevaluation and appears to feel better. Work-up is as above, consistent with fecal retention. She was reassured. Given a prescription for dicyclomine, given a magnesium citrate bottle, she is going to take at home and hold off on using it since she just used milk of magnesia and wants to see if it works first which I think is reasonable. She was given appropriate instructions on how to use this, and reasons to return and she is comfortable with that plan. ED Disposition - Plan for ED Patient: Disposition: Home or Assisted Living Diagnosis: Constipation, Diffuse abdominal pain, Irritable bowel syndrome (IBS) Instructions: ED Constipation (Adult), ED Irritable Bowel Syndrome Prescriptions: Dicyclomine HCl [Bentyl] 1 - 2 cap PO Q4H PRN #20 capsule PRN Reason: abdominal cramping Prescription Printed Referrals: Lisandro iSmons MD [Primary Care Provider] - 3-5 Days if not improving Additional Instructions: If you choose to take the magnesium citrate, drink half of the bottle, and sadiq with plenty of fluids. If you do not have a good bowel movement in 24 hours, repeat with the other half of the bottle.
[2021-03-06] MEDS: 0.9% Normal Saline 1,000 ML 1000 ML IV (20:12)
[2021-03-06 20:13] LABS: Mucous, Urine 0 SEEN /hpf (<or=2+); Red Blood Cells-Urine 0 SEEN /hpf (0-5); White Blood Cells 0 SEEN /hpf (0-5)
[2021-03-06] MEDS: Ketorolac 30 MG/ML Syringe IV (20:13)
[2021-03-06] MEDS: Dicyclomine 20 MG/2 ML Vial IM (20:14)
[2021-03-06] MEDS: Ondansetron 4 MG/2 ML Vial IV (20:14)
[2021-03-06] MEDS: Morphine 4 MG/ML Syringe IV (20:14)
[2021-03-06 20:17] LABS: Color, Urine Straw (Yellow); Glucose, Dipstick Normal (Normal); Ketone-Dipstick Negative (Negative); Leukocyte Esterase-Dipstick 25 /ul (Negative); Nitrite-Dipstick Negative (Negative); Occult Blood-Urine Negative /ul (Negative); Protein-Dipstick Negative (Negative); Specific Gravity, Urine 1.015 (1.002-1.030); Urine Bilirubin Dipstick Negative (Negative); Urine Clarity Sl. Cloudy (Clear); Urine Urobilinogen Normal (Normal)
[2021-03-06 20:19] LABS: Absolute Lymphocyte Count 1.49 X10^3/uL (0.83-4.51); Absolute Neutrophil Count 3.2 X10^3/uL (2.0-7.7); Basophil# 0.02 X10^3/uL; Basophil% 0.4 % (0-1); Eosinophil# 0.04 X10^3/uL; Eosinophils% 0.8 % (0-5); Hematocrit 42.3 % (37-47); Hemoglobin 14.6 g/dL (12.0-15.0); Lymphocyte # 1.49 X10^3/ul (0.83-4.51); Lymphocyte % 28.8 % (19-41); Mean Corp Hgb Conc 34.5 g/dL (32-36); Mean Corpuscular Hgb 32.4 pg (27.0-32.0); Monocyte# 0.45 X10^3/uL; Monocyte% 8.7 % (0-10); NRBC Flagged by Analyzer 0 % (0-5); Neutrophil # 3.16 X10^3/uL (2.7-7.7); Neutrophil % 61.1 % (47-70); Platelet Count 287 K/mm3 (150-450); RBC Distribution Width CV 12.8 % (11.6-14.6); RBC Distribution Width SD 43.9 fl (35.1-43.9); White Blood Count 5.2 K/mm3 (4.4-11.0)
[2021-03-06 20:29] LABS: ALB/GLOB Ratio 1.3 RATIO (0.9-2.4); AST(SGOT) 14 U/L (15-37); Alanine Aminotransfer ALT/SGPT 17 U/L (13-56); Alkaline Phosphatase 54 U/L (45-117); Anion Gap 6 (5-15); BUN 13 mg/dL (7-18); BUN/Creat Ratio 16.4 RATIO (10-20); Calcium,Total 8.9 mg/dL (8.5-10.1); Chloride 103 mmol/L (98-107); Creatinine, Serum 0.79 mg/dL (0.55-1.02); EST Glomerular Filtration Rate 86 mL/min (>60); Est Glom Filt Rate - Afr Amer 104 mL/min (>60); Estimated Creatinine Clearance 82.56 ml/min; Globulin 3.1 g/dL (2.2-4.2); Glucose 119 mg/dL (74-106); Lipase 166 U/L (73-393); Potassium 3.2 mmol/L (3.5-5.1); Protein, Total 7.1 g/dL (6.4-8.2); Sodium Level 137 mmol/L (136-145)
[2021-03-06 20:34] LABS: Bacteria 1+ /hpf (None Seen); Squamous Epithelial Cells - UA 0-5 SEEN /hpf (5-10)
[2021-03-06 20:35] LABS: Internal QC Validated? YES +Cl - CLEAR BKGD; Pregnancy, Urine Negative Negative
[2021-03-06 21:03] VITALS: BP 102/51; PULSE 72; RESP 16; O2SAT 100
[2021-03-06 22:10] VITALS: BP 100/60; PULSE 68; RESP 17; TEMP 36.7; O2SAT 98
[2021-03-06] MEDS: Magnesium Citrate 300 ML PO (22:18)
== END 2021-03-06 22:19 | disposition home or self-care (01) ==
PROVIDERS: Emergency Provider Emergency Medicine; PCP Family Medicine
DX: K59.00 Constipation, unspecified (principal); R10.9 Unspecified abdominal pain; K58.9 Irritable bowel syndrome, unspecified; Z87.891 Personal history of nicotine dependence
CPT/HCPCS: 74177; 80053; 81001; 81025; 83690; 85025; 96361; 96372; 96374; 96375; 99285; J7030; Q9967; A4216; J2405

== ENCOUNTER 2021-04-11 16:21 | Emergency (ER) | payer MEDICAID, SELFPAY ==
[2021-04-11 16:22] VITALS: BP 115/72; PULSE 89; RESP 15; TEMP 36.5; O2SAT 100; BMI 20.9
--- NOTE | 2021-04-11 16:41 | EX.ED.DYSGE1 ---
HPI History of Present Illness Chief Complaint: Flank Pain Informant: patient Onset/Context/Timing Onset: Hours Context: Sudden Onset Timing: Continuous and Waxes and wanes Quality: Pain/fullness Location: Right lower quadrant radiating to the groin Current Severity: Mild Maximum Severity: Severe Worsened by: Nothing Relieved by: Nothing Associated Symptoms Associated Symptoms: Frequency Narrative Narrative: Patient is a 40-year-old woman who was last normal months. Was last week presents with urgency, frequency and pressure fullness sensation right lower quadrant to the groin. This is similar to her first kidney stone. She has had multiple kidney stones and CAT scans. She denies fever, chills or night sweats. She denies dysuria or hematuria. She denies cardiac respiratory symptoms. She denies back or flank pain. She denies trauma. Prior similar symptoms: Yes Recent Illness/Hospitalization: No PFSH PFSH Home Medications polyethylene glycol 3350 17 gm PO QHS 11/24/14 [History Last Taken 1 Day Ago ~12/29/14] dicyclomine 1 - 2 cap PO Q4H PRN #20 capsule 03/06/21 [Rx Last Taken Unknown] dicyclomine 20 mg PO TIDAC #20 capsule 04/11/21 [Rx Last Taken Unknown] Allergy/AdvReac Type Severity Reaction Status Date / Time codeine Allergy Unknown Verified 04/11/21 16:21 Surgical History History of tonsillectomy History of tubal ligation Social History (Updated 04/11/21 @ 16:[address] Norman Wilson MD) household members: children Smoking Status: Former smoker alcohol intake: current alcohol intake frequency: holidays/special occasions only substance use type: does not use ROS ROS ED Constitutional Constitutional ED: Denies chills, fever(s), subjective or sweats Cardiovascular Cardiovascular: Denies chest pain, orthopnea or palpitations Respiratory/Chest Respiratory/Chest: Denies cough, dyspnea, dyspnea on exertion or orthopnea Gastrointestinal Gastrointestinal: Reports abdominal pain; Denies constipation, diarrhea, melena, nausea or vomiting Genitourinary Genitourinary ED: Reports urinary frequency; Denies dysuria or hematuria Musculoskeletal Musculoskeletal: Denies arthralgias, back pain, myalgias or neck pain Integumentary Denies rash Endocrine Endocrinology: Denies polydipsia or polyuria EXAM Physical Exam Const Vital Signs: 04/11/21 16:22 Temperature 97.7 F L Temperature Source Temporal Pulse Rate 89 Respiratory Rate 15 Blood Pressure 115/72 Blood Pressure Mean 86 Pulse Ox 100 Oxygen Delivery Method Room Air Positive well nourished and well developed General Appearance ED: well developed HEENT Reports moist mucous membranes Negative for trauma or tenderness Eyes PERRL and EOMs intact bilaterally General Eye ED: Negative for pale conjunctiva or scleral icterus Neck no lymphadenopathy, supple and no JVD General: Negative for tenderness Chest Wall inspection of chest normal and palpation of chest normal Resp normal respiratory effort and clear to auscultation bilaterally Cardio regular rate, regular rhythm, S1 normal heart sound, S2 normal heart sound and no murmurs GI normal to inspection, nondistended, normoactive bowel sounds Back/Spine no CVA tenderness Thoracic Spine / Upper Back: Negative for paraspinal muscle tenderness Extremity normal to inspection Neuro oriented x3, CN's II-XII intact bilaterally and no sensory deficits noted Sensorium / Orientation: alert Psych mental status grossly normal Skin no rashes or lesions noted MDM MDM MDM Narrative Medical decision making narrative: Weight is unremarkableIV was established she was medicated with 4 of Zofran and 15 of Toradol IV push. Urine was ordered. If urine indicates evidence infection will order CAT scan. Plan is not to scan since she has had multiple prior scans. Patient was informed of her lab results. She now states she has had bloating for several weeks. She does have history of IBS. She was informed that this discomfort she is experiencing may be due to her IBS. She was reexamined there is no tenderness in the right lower quadrant. There is no CVA tenderness. There is no evidence of hernia. Lab Data Attestation: I reviewed the patient's lab results. Labs: Laboratory Results - last 24 hr 04/11/21 16:45 Urine Color Yellow Urine Clarity Clear Urine pH 7.0 Ur Specific [place] 1.010 Urine Protein Negative Urine Glucose (UA) Normal Urine Ketones 15 H Urine Occult Blood Negative Urine Nitrite Negative Urine Bilirubin Negative Urine Urobilinogen Normal Ur Leukocyte Esterase Negative Urine RBC 0 SEEN Urine WBC 0 SEEN Ur Squamous Epith Cells 0-5 SEEN Urine Bacteria RARE Urine Mucus 0 SEEN Discharge Plan Triage Chief Complaint: Flank Pain ED Provider: SteveNorman Dx/Rx/DC Orders Clinical Impression: Right lower quadrant abdominal pain, Irritable bowel syndrome (IBS), Frequency of micturition Instructions: ED Abdominal Pain Unkn Cause Fem, ED Irritable Bowel Syndrome Prescriptions: New dicyclomine 10 MG capsule 20 mg PO TIDAC Qty: 20 RF: 0 No Action polyethylene glycol 3350 17 GM packet 17 gm PO QHS RF: 0 dicyclomine 10 MG capsule 1 - 2 cap PO Q4H PRN (Reason: abdominal cramping) Qty: 20 RF: 0 Primary Care Provider: Lisandro Simons Referrals: Lisandro Simons MD [Primary Care Provider] - Keep Se appointment
--- NOTE | 2021-04-11 16:48 | ED.RN ---
Pt declines wanting any pain medication or IV unless bloodwork is needed. UA obtained and sent to lab. Dr Wilson notified.
[2021-04-11 16:51] LABS: Mucous, Urine 0 SEEN /hpf (<or=2+); Red Blood Cells-Urine 0 SEEN /hpf (0-5); White Blood Cells 0 SEEN /hpf (0-5)
[2021-04-11 17:00] LABS: Color, Urine Yellow (Yellow); Glucose, Dipstick Normal (Normal); Ketone-Dipstick 15 mg/dl (Negative); Leukocyte Esterase-Dipstick Negative /ul (Negative); Nitrite-Dipstick Negative (Negative); Occult Blood-Urine Negative /ul (Negative); Protein-Dipstick Negative (Negative); Urine Bilirubin Dipstick Negative (Negative); Urine Clarity Clear (Clear); Urine Urobilinogen Normal (Normal)
[2021-04-11 17:30] LABS: Bacteria RARE /hpf (None Seen); Squamous Epithelial Cells - UA 0-5 SEEN /hpf (5-10)
== END 2021-04-11 19:03 | disposition home or self-care (01) ==
PROVIDERS: Emergency Provider Emergency Medicine; PCP Family Medicine
DX: R10.31 Right lower quadrant pain (principal); K58.9 Irritable bowel syndrome, unspecified; R35.0 Frequency of micturition; Z87.891 Personal history of nicotine dependence; Z98.51 Tubal ligation status
CPT/HCPCS: 81001; 96374; 96375; 99282; J2405

== ENCOUNTER → 2021-04-16 14:39 | Outpatient (CLI) | payer MEDICAID, SELFPAY ==
[2021-04-16 09:29] VITALS: BMI 20.9
[2021-04-16 14:43] LABS: Mucous, Urine 0 SEEN /hpf (<or=2+); Squamous Epithelial Cells - UA 0 SEEN /hpf (5-10)
[2021-04-16 14:52] LABS: Color, Urine Yellow (Yellow); Glucose, Dipstick Normal (Normal); Ketone-Dipstick Negative (Negative); Leukocyte Esterase-Dipstick 500 /ul (Negative); Nitrite-Dipstick Negative (Negative); Occult Blood-Urine 250 /ul (Negative); Protein-Dipstick Negative (Negative); Specific Gravity, Urine 1.005 (1.002-1.030); Urine Bilirubin Dipstick Negative (Negative); Urine Clarity Clear (Clear); Urine Urobilinogen Normal (Normal)
[2021-04-16 15:01] LABS: Bacteria 1+ /hpf (None Seen); Red Blood Cells-Urine 0-5 SEEN /hpf (0-5); White Blood Cells 50-100 SEEN /hpf (0-5)
== END ==
PROVIDERS: PCP Family Medicine; Visit Provider Physician Assistant Surgical
DX: N39.0 Urinary tract infection, site not specified (principal)
CPT/HCPCS: 81001; 87086; 87088

== ENCOUNTER 2021-06-27 00:44 | Emergency (ER) | payer MEDICAID, SELFPAY ==
[2021-04-16 09:29] VITALS: BMI 20.9
[2021-06-27 00:45] VITALS: BP 115/68; PULSE 75; RESP 16; TEMP 36.4; O2SAT 99; BMI 19.8
[2021-06-27 01:15] LABS: Mucous, Urine 0 SEEN /hpf (<or=2+); Red Blood Cells-Urine 0 SEEN /hpf (0-5)
[2021-06-27 01:15] LABS: Absolute Lymphocyte Count 1.35 X10^3/uL (0.83-4.51); Absolute Neutrophil Count 4.1 X10^3/uL (2.0-7.7); Basophil# 0.02 X10^3/uL; Basophil% 0.3 % (0-1); Eosinophil# 0.07 X10^3/uL; Eosinophils% 1.2 % (0-5); Hematocrit 39.4 % (37-47); Hemoglobin 13.6 g/dL (12.0-15.0); Lymphocyte # 1.35 X10^3/ul (0.83-4.51); Lymphocyte % 22.5 % (19-41); Mean Corp Hgb Conc 34.5 g/dL (32-36); Mean Corpuscular Hgb 32.6 pg (27.0-32.0); Mean Corpuscular Volume 94.5 fL (81-99); Mean Platelet Vol. 9.1 fl (6.2-12.0); Monocyte# 0.47 X10^3/uL; Monocyte% 7.8 % (0-10); NRBC Flagged by Analyzer 0 % (0-5); Neutrophil # 4.06 X10^3/uL (2.7-7.7); Neutrophil % 67.9 % (47-70); Platelet Count 225 K/mm3 (150-450); RBC Distribution Width CV 13.4 % (11.6-14.6); RBC Distribution Width SD 46.5 fl (35.1-43.9); Red Blood Count 4.17 M/mm3 (4.2-5.4)
[2021-06-27 01:19] LABS: Color, Urine Yellow (Yellow); Glucose, Dipstick Normal (Normal); Ketone-Dipstick 5 mg/dl (Negative); Leukocyte Esterase-Dipstick Negative /ul (Negative); Nitrite-Dipstick Negative (Negative); Occult Blood-Urine Negative /ul (Negative); Protein-Dipstick Negative (Negative); Specific Gravity, Urine 1.015 (1.002-1.030); Urine Bilirubin Dipstick Negative (Negative); Urine Clarity Sl. Cloudy (Clear); Urine Urobilinogen Normal (Normal); Urine pH 6.5 (5.0 - 8.0)
[2021-06-27 01:28] LABS: Bacteria RARE /hpf (None Seen); Squamous Epithelial Cells - UA 0-5 SEEN /hpf (5-10); White Blood Cells 0-5 SEEN /hpf (0-5)
[2021-06-27 01:32] LABS: Anion Gap 7 (5-15); BUN 17 mg/dL (7-18); BUN/Creat Ratio 21.5 RATIO (10-20); Calcium,Total 8.5 mg/dL (8.5-10.1); Chloride 105 mmol/L (98-107); Creatinine, Serum 0.79 mg/dL (0.55-1.02); EST Glomerular Filtration Rate 86 mL/min (>60); Est Glom Filt Rate - Afr Amer 104 mL/min (>60); Estimated Creatinine Clearance 84.37 ml/min; Glucose 92 mg/dL (74-106); Sodium Level 138 mmol/L (136-145)
[2021-06-27 01:33] LABS: Internal QC Validated? YES +Cl - CLEAR BKGD; Pregnancy, Serum, hCG Quali. NEGATIVE Negative
--- NOTE | 2021-06-27 01:48 | RAD_ITS ---
EXAM: XR ABDOMEN, 2 VIEWS AND XR CHEST, 1 VIEW : 1980 CLINICAL INDICATION: Pain TECHNIQUE: Frontal view of the chest, frontal view of the abdomen/pelvis and upright or decubitus view of the abdomen. This report was created using [employer] report generation technology. COMPARISON: 12/28/20 FINDINGS: CHEST: LUNGS AND PLEURAL SPACES: Unremarkable. No consolidation or edema. No pneumothorax. No effusion. HEART: Unremarkable. Cardiac silhouette not enlarged. MEDIASTINUM: Central airways and mediastinal contour are unremarkable. ABDOMEN: INTRAPERITONEAL SPACE: No free air. GASTROINTESTINAL TRACT: Unremarkable. Non-obstructive. No bowel or stomach distention. ORGANS: Unremarkable as visualized. No organomegaly. No abnormal calcifications. TUBES, LINES AND DEVICES: None. BONES/JOINTS: No acute findings. SOFT TISSUES: No acute findings. RAD/Acute Abdomen Inc Chest IMPRESSION: Negative chest and abdominal series. at 0301 Reported and signed by: Osmin Quach MD Electronically Signed: Osmin Quach MD at 3:01 EDT Tel , Service support ,
--- NOTE | 2021-06-27 01:49 | EDS_ITS ---
HPI HPI - GI History of Present Illness Chief Complaint: Abd Pain Informant: patient Narrative Narrative: Patient presents with abdominal pain. It started about 6 or so hours ago. It is cramping. It tends to be in the epigastric and may be a little toward the right. This is similar to her irritable bowel syndrome. She takes stool softeners regularly. She is still moving her bowels but has noticed that over the last few days or week has been a little bit less. She also started Cipro 2 days ago for UTI symptoms. She is not having symptoms now. She has not had any vomiting. She has been eating and drinking well. No fevers or chills. No back pain. No history of biliary disease or strong family history of that. PFSH PFSH Home Medications polyethylene glycol 3350 17 g PO QHS 11/24/14 [History Last Taken 1 Day Ago ~12/29/14] Allergy/AdvReac Type Severity Reaction Status Date / Time codeine Allergy Unknown Verified 06/27/21 00:47 Surgical History History of tonsillectomy History of tubal ligation Social History household members: children Smoking Status: Former smoker alcohol intake: current alcohol intake frequency: holidays/special occasions only substance use type: does not use ROS ROS ED Constitutional Constitutional ED: Denies chills, fever(s) or sweats ENT ENT ED: Denies rhinorrhea or sore throat Cardiovascular Cardiovascular: Denies chest pain or palpitations Respiratory/Chest Respiratory/Chest: Denies cough or dyspnea Gastrointestinal Gastrointestinal: Reports abdominal pain and constipation; Denies diarrhea, melena, nausea or vomiting Genitourinary Genitourinary ED: Denies dysuria or hematuria Musculoskeletal Musculoskeletal: Denies back pain Integumentary Denies abscess or rash Neurologic Neurologic: Denies headache(s) Psychiatric Psychiatric: Denies depression Endocrine Endocrinology: Denies polydipsia or polyuria Hematologic/Lymphatic Hematologic/Lymphatic: Denies easy bleeding or easy bruising Allergic/Immunologic Allergic/Immunologic ED: Denies urticaria EXAM Physical Exam Const Vital Signs: 06/27/21 00:45 Temperature 97.6 F L Temperature Source Oral Pulse Rate 75 Respiratory Rate 16 Blood Pressure 115/68 Blood Pressure Mean 83 Pulse Ox 99 Oxygen Delivery Method Room Air Positive well nourished General Appearance ED: NAD HEENT normocephalic Eyes General Eye ED: Negative for pale conjunctiva or scleral icterus Neck no JVD Resp normal respiratory effort and clear to auscultation bilaterally Cardio regular rate, regular rhythm and no murmurs GI non-distended GI Narrative: Abdomen is flat nondistended with normal bowel sounds. There is a little tenderness in the epigastric to right upper quadrant area. Bacon sign is negative though. Remainder of abdomen is benign. There is no rebound or guarding. Auscultation: normoactive bowel sounds Palpation: soft Back/Spine no CVA tenderness Extremity full ROM General Extremety ED: Negative for edema or tenderness General Extremity: Negative for edema Neuro Sensorium / Orientation: alert Psych mental status grossly normal Skin Lesions: no lesions Rashes: no rashes MDM MDM MDM Narrative Medical decision making narrative: Blood work shows normal hemoglobin and white count. Electrolytes are unremarkable. Negative . Urinalysis is negative. LFTs show mild bump in her bilirubin but this is actually lower than many she has had in the past. She is feeling better. She states the pain is moving to different areas now. I do not she requires CAT scan. Her x-rays show no obstruction but there is some increased stool. She has milk of magnesia at home. She will try this. I think she is okay to go. No sign of acute biliary disease. No sign of appendicitis or need for further work-up at this time that I am seeing. Lab Data Attestation: I reviewed the patient's lab results. Labs: Laboratory Results - last 24 hr 06/27/21 06/27/21 06/27/21 01:05 01:05 01:05 WBC 6.0 RBC 4.17 L Hgb 13.6 Hct 39.4 MCV 94.5 MCH 32.6 H MCHC 34.5 RDW Std Deviation 46.5 H RDW Coeff of Darci 13.4 Plt Count 225 MPV 9.1 Immature Gran % (Auto) 0.300 Neut % (Auto) 67.9 Lymph % (Auto) 22.5 [place] % (Auto) 7.8 Eos % (Auto) 1.2 Baso % (Auto) 0.3 Absolute Neuts (auto) 4.1 Absolute Lymphs (auto) 1.35 Nucleated RBC % 0 Sodium 138 Potassium 4.0 Chloride 105 Carbon Dioxide 26.0 Anion Gap 7 BUN 17 Creatinine 0.79 Estim Creat Clear Calc 84.37 Est GFR (MDRD) Af Amer 104 Est GFR (MDRD) Non-Af 86 BUN/Creatinine Ratio 21.5 H Glucose 92 Calcium 8.5 Total Bilirubin Direct Bilirubin AST ALT Alkaline Phosphatase Total Protein Albumin Globulin Lipase Serum , Qual NEGATIVE Urine Color Urine Clarity Urine pH Ur Specific [place] Urine Protein Urine Glucose (UA) Urine Ketones Urine Occult Blood Urine Nitrite Urine Bilirubin Urine Urobilinogen Ur Leukocyte Esterase Urine RBC Urine WBC Ur Squamous Epith Cells Urine Bacteria Urine Mucus 06/27/21 06/27/21 01:05 01:10 WBC RBC Hgb Hct MCV MCH MCHC RDW Std Deviation RDW Coeff of Darci Plt Count MPV Immature Gran % (Auto) Neut % (Auto) Lymph % (Auto) [place] % (Auto) Eos % (Auto) Baso % (Auto) Absolute Neuts (auto) Absolute Lymphs (auto) Nucleated RBC % Sodium Potassium Chloride Carbon Dioxide Anion Gap BUN Creatinine Estim Creat Clear Calc Est GFR (MDRD) Af Amer Est GFR (MDRD) Non-Af BUN/Creatinine Ratio Glucose Calcium Total Bilirubin 1.40 H Direct Bilirubin 0.24 AST 25 ALT 18 Alkaline Phosphatase 40 L Total Protein 6.5 Albumin 3.5 Globulin 3.0 Lipase 180 Serum , Qual Urine Color Yellow Urine Clarity Sl. Cloudy Urine pH 6.5 Ur Specific [place] 1.015 Urine Protein Negative Urine Glucose (UA) Normal Urine Ketones 5 H Urine Occult Blood Negative Urine Nitrite Negative Urine Bilirubin Negative Urine Urobilinogen Normal Ur Leukocyte Esterase Negative Urine RBC 0 SEEN Urine WBC 0-5 SEEN Ur Squamous Epith Cells 0-5 SEEN Urine Bacteria RARE Urine Mucus 0 SEEN Radiography Diagnostic Testing: Radiology Impression Acute Abdomen Series 06/27/21 01:48 IMPRESSION: Negative chest and abdominal series. at 0301 Reported and signed by: Osmin Quach MD Electronically Signed: Osmin Quach MD at 3:01 EDT Tel , Service support , Discharge Plan Triage Chief Complaint: Abd Pain ED Provider: Trevor Covington Dx/Rx/DC Orders Clinical Impression: Irritable bowel syndrome (IBS), Abdominal pain Instructions: Abdominal Pain Prescriptions: No Action polyethylene glycol 3350 17 GM packet 17 g PO QHS RF: 0 Primary Care Provider: Lisandro Simons Referrals: Lisandro Simons MD [Primary Care Provider] - 3-5 Days if not improving Disposition Disposition: Home, Self Care
[2021-06-27] MEDS: 0.9% Normal Saline 1,000 ML 1000 ML IV (01:55)
[2021-06-27] MEDS: Ondansetron 4 MG/2 ML Vial IV (01:56)
[2021-06-27] MEDS: Ketorolac 15 MG/ML Vial IV (01:57)
[2021-06-27 02:11] LABS: AST(SGOT) 25 U/L (15-37); Alanine Aminotransfer ALT/SGPT 18 U/L (13-56); Albumin, Serum 3.5 g/dL (3.2-5.0); Alkaline Phosphatase 40 U/L (45-117); Bilirubin, Direct 0.24 mg/dL (0.00-0.30); Lipase 180 U/L (73-393); Protein, Total 6.5 g/dL (6.4-8.2)
[2021-06-27 03:49] VITALS: BP 92/55; PULSE 60; RESP 16; O2SAT 100
== END 2021-06-27 03:56 | disposition home or self-care (01) ==
PROVIDERS: Emergency Provider Emergency Medicine; PCP Family Medicine
DX: K58.9 Irritable bowel syndrome, unspecified (principal); R10.9 Unspecified abdominal pain; Z87.891 Personal history of nicotine dependence; Z98.51 Tubal ligation status
CPT/HCPCS: 74022; 80048; 80076; 81001; 83690; 84703; 85025; 96361; 96374; 96375; 99283; J7030; J2405

== ENCOUNTER → 2021-06-29 15:49 | Outpatient (CLI) | payer MEDICAID, SELFPAY ==
[2021-06-27 00:45] VITALS: BMI 19.8
== END ==
PROVIDERS: PCP Family Medicine; Referring Provider Family Medicine; Visit Provider Family Medicine
DX: Z11.52 Encounter for screening for COVID-19 (principal)
CPT/HCPCS: 36415

== ENCOUNTER → 2021-10-05 18:07 | Outpatient (CLI) | payer MEDICAID, SELFPAY ==
[2021-10-05 21:13] LABS: Probe Check PASS; Specimen Processing Control PASS
== END ==
PROVIDERS: PCP Family Medicine; Visit Provider Family Medicine
DX: J01.90 Acute sinusitis, unspecified (principal)
CPT/HCPCS: 87635; U0005; U0003

== ENCOUNTER 2022-09-30 13:57 | Emergency (ER) | payer MEDICAID, SELFPAY ==
[2022-09-30 14:03] VITALS: BP 126/81; PULSE 82; RESP 16; TEMP 36.7; O2SAT 100; BMI 20.5
--- NOTE | 2022-09-30 14:04 | ED.RN ---
Pt complaining of LT eye blurriness, no other neuro symptoms. As per stroke algorithm pt taken back to ED room d/t MD not available to assess in triage room. Charge nurse & primary nurse aware of pt's complaints.
--- NOTE | 2022-09-30 14:21 | CT_ITS ---
INDICATION: Headache EXAMINATION: CT BRAIN - CT Head or Brain W/O Contrast Injection TECHNIQUE: Multiple axial images were obtained of the head without intravenous contrast. A radiation dose optimization technique was used for this scan. IV Contrast dosage and agent: None. COMPARISON: FINDINGS: BRAIN PARENCHYMA: No intra- or extra-axial hemorrhage. No evidence of acute infarct. No intracranial mass or mass effect. There is preservation of the capps/white matter interface. Posterior fossa structures are unremarkable. CSF SPACES: Appropriate for age. No hydrocephalus. Basal cisterns are patent. CALVARIUM, SKULL BASE, PARANASAL SINUSES AND MASTOID AIR CELLS: Clear. No discrete lytic or blastic abnormalities. ORBITS: Both globes, extraocular muscles, optic nerves and retrobulbar fat appear unremarkable. ASPECTS Score for Acute Strokes: 10 CT/Brain/Head without Contrast IMPRESSION: Negative Brain CT without contrast. Electronically Signed: Faisal Armenta MD at 15:03 EST ,
--- NOTE | 2022-09-30 14:22 | EX.ED.VIS.EY ---
HPI History of Present Illness Chief Complaint: Eye Problem Informant: patient Onset/Context/Timing Location: Left Eye Onset: Today Context: Sudden Onset Timing: Continuous Worsened by: Anxiety Relieved by: Nothing Associated Symptoms Associated Symptoms - Eyes: Photophobia; Negative for Burning, Crusting, Drainage, Eyelid swelling, Foreign body sensation, Itching, Matting or Redness History of injury: No Visual correction: None Narrative Narrative: Patient presents with visual changes in the periphery of her vision of her left eye. Patient states these began today while she was at a mall shopping. Patient states she developed pain in the right side of her head after this. Patient states her vision improved and then her blurry vision recurred. Patient states it is over the lateral peripheral vision of her left eye. Patient states she is feeling anxious. Patient is to light makes her pain worse. Patient admits to some nausea but denies any vomiting. PFSH PFS Home Medications NK 09/30/22 [History Last Taken Unknown] Allergy/AdvReac Type Severity Reaction Status Date / Time codeine Allergy Unknown Verified 09/30/22 14:06 Surgical History History of tonsillectomy History of tubal ligation Social History household members: children Smoking Status: Former smoker alcohol intake: current alcohol intake frequency: holidays/special occasions only substance use type: does not use ROS ROS ED Constitutional Constitutional ED: Denies chills or fever(s) Eyes Eyes: Reports blurry vision left and change in vision left ENT ENT ED: Reports rhinorrhea; Denies sore throat Cardiovascular Cardiovascular: Denies chest pain or palpitations Respiratory/Chest Respiratory/Chest: Denies cough or dyspnea Gastrointestinal Gastrointestinal: Reports nausea; Denies vomiting Genitourinary Genitourinary ED: Denies dysuria or hematuria Musculoskeletal Musculoskeletal: Denies back pain or neck pain Integumentary Denies abscess or rash Neurologic Neurologic: Reports headache(s); Denies weakness Allergic/Immunologic Allergic/Immunologic ED: Denies mouth swelling or urticaria EXAM Physical Exam Const Vital Signs: 09/30/22 14:03 Temperature 98.1 F Temperature Source Temporal Pulse Rate 82 Respiratory Rate 16 Blood Pressure 126/81 H Blood Pressure Mean 96 Pulse Ox 100 Oxygen Delivery Method Room Air Positive well nourished and well developed General Appearance ED: well developed HEENT Reports moist mucous membranes Eyes Eyes Narrative: Pupils are equal, round, and reactive to light bilaterally. Extraocular muscles are intact. There is an equal red reflex bilaterally. There are no foreign bodies noted. The conjunctiva are clear. Anterior chambers are clear. There is no hyphema. Funduscopic exam was benign. Neck supple and no JVD Resp normal respiratory effort and clear to auscultation bilaterally Cardio regular rate, regular rhythm and no murmurs GI normal to inspection, nondistended, normoactive bowel sounds and non-tender Palpation: soft Extremity normal to inspection General Extremety ED: Negative for edema or tenderness General Extremity: Negative for edema Neuro oriented x3, CN's II-XII intact bilaterally and no sensory deficits noted Sensorium / Orientation: alert Motor Exam: strength 5/5 throughout Psych mental status grossly normal Skin no rashes or lesions noted MDM MDM MDM Narrative Medical decision making narrative: Patient was given IV fluids, Reglan, Benadryl, and Ativan. CT scan of the brain was obtained. There is no acute intracranial abnormality. This was interpreted by the radiologist and reviewed by myself. CBC was within normal limits. Comprehensive metabolic profile was within normal limits. Patient is feeling better on reevaluation. Patient states her vision has improved. Patient states her headache has resolved. Patient was advised that this may be a migraine headache which caused her visual changes and headache. Patient was instructed to rest in a dark quiet room. Patient was instructed to follow-up with her primary care physician in 5 to 7 days. Patient understood and was agreeable with the plan. All questions were answered. Discharge Plan Triage Chief Complaint: Eye Problem ED Provider: Lisandro Wren Dx/Rx/DC Orders Clinical Impression: Headache, migraine, Visual changes Instructions: ED Blurred Vision, ED, Migraine (Classical) Prescriptions: No Action NK Primary Care Provider: Lisandro Simons Referrals: Lisandro Simons MD [Primary Care Provider] - 5-7 Days Disposition Disposition: Home, Self Care
[2022-09-30] MEDS: Metoclopramide 10 MG/2 ML Vial IV (14:40)
[2022-09-30] MEDS: DiphenhydrAMINE 50 MG/ML Syringe 25 MG IV (14:41)
[2022-09-30] MEDS: LORazepam 2 MG/ML Syringe 0.5 MG IV (14:41)
[2022-09-30 14:45] VITALS: BP 103/72; PULSE 76; RESP 14; O2SAT 100
[2022-09-30 14:59] LABS: Absolute Lymphocyte Count 1.53 X10^3/uL (0.83-4.51); Absolute Neutrophil Count 4.5 X10^3/uL (2.0-7.7); Basophil# 0.03 X10^3/uL; Basophil% 0.4 % (0-1); Eosinophil# 0.15 X10^3/uL; Eosinophils% 2.2 % (0-5); Hematocrit 41.2 % (37-47); Hemoglobin 14.4 g/dL (12.0-15.0); Lymphocyte # 1.53 X10^3/ul (0.83-4.51); Lymphocyte % 22.7 % (19-41); Mean Corpuscular Hgb 33.5 pg (27.0-32.0); Mean Corpuscular Volume 95.8 fL (81-99); Mean Platelet Vol. 9.3 fl (6.2-12.0); Monocyte# 0.53 X10^3/uL; Monocyte% 7.9 % (0-10); NRBC Flagged by Analyzer 0 % (0-5); Neutrophil # 4.47 X10^3/uL (2.7-7.7); Neutrophil % 66.4 % (47-70); Platelet Count 228 K/mm3 (150-450); RBC Distribution Width CV 12.8 % (11.6-14.6); RBC Distribution Width SD 44.7 fl (35.1-43.9); White Blood Count 6.7 K/mm3 (4.4-11.0)
[2022-09-30 15:00] VITALS: RESP 18
[2022-09-30 15:13] LABS: ALB/GLOB Ratio 1.4 RATIO (0.9-2.4); AST(SGOT) 17 U/L (15-37); Alanine Aminotransfer ALT/SGPT 18 U/L (13-56); Alkaline Phosphatase 46 U/L (45-117); Anion Gap 6 (5-15); BUN 14 mg/dL (7-18); BUN/Creat Ratio 16.2 RATIO (10-20); Chloride 106 mmol/L (98-107); Creatinine, Serum 0.86 mg/dL (0.55-1.02); EST Glomerular Filtration Rate 77 mL/min (>60); Est Glom Filt Rate - Afr Amer 93 mL/min (>60); Estimated Creatinine Clearance 78.69 ml/min; Globulin 2.9 g/dL (2.2-4.2); Glucose 106 mg/dL (74-106); Potassium 3.6 mmol/L (3.5-5.1); Protein, Total 6.9 g/dL (6.4-8.2); Sodium Level 138 mmol/L (136-145)
[2022-09-30 15:33] VITALS: RESP 16
== END 2022-09-30 15:49 | disposition home or self-care (01) ==
PROVIDERS: Emergency Provider Emergency Medicine; PCP Family Medicine; Visit Provider Emergency Medicine
DX: G43.909 Migraine, unspecified, not intractable, without status migrainosus (principal); F41.9 Anxiety disorder, unspecified; Z87.891 Personal history of nicotine dependence
CPT/HCPCS: 70450; 80053; 85025; 96374; 96375; 99282; A4216

== ENCOUNTER → 2023-09-28 | Outpatient (CLI) | payer MEDICAID, SELFPAY ==
[2023-09-28 12:42] LABS: Absolute Lymphocyte Count 1.44 X10^3/uL (0.83-4.51); Absolute Neutrophil Count 4.4 X10^3/uL (2.0-7.7); Basophil# 0.05 X10^3/uL; Basophil% 0.8 % (0-1); Eosinophil# 0.08 X10^3/uL; Eosinophils% 1.3 % (0-5); Hematocrit 46.7 % (37-47); Hemoglobin 15.8 g/dL (12.0-15.0); Lymphocyte # 1.44 X10^3/ul (0.83-4.51); Lymphocyte % 22.7 % (19-41); Mean Corp Hgb Conc 33.8 g/dL (32-36); Mean Corpuscular Hgb 33.1 pg (27.0-32.0); Mean Corpuscular Volume 97.9 fL (81-99); Mean Platelet Vol. 10.1 fl (6.2-12.0); Monocyte# 0.39 X10^3/uL; Monocyte% 6.2 % (0-10); NRBC Flagged by Analyzer 0 % (0-5); Neutrophil # 4.35 X10^3/uL (2.7-7.7); Neutrophil % 68.5 % (47-70); Platelet Count 217 K/mm3 (150-450); RBC Distribution Width CV 12.8 % (11.6-14.6); RBC Distribution Width SD 46.1 fl (35.1-43.9); Red Blood Count 4.77 M/mm3 (4.2-5.4); White Blood Count 6.3 K/mm3 (4.4-11.0)
[2023-09-28 13:13] LABS: ALB/GLOB Ratio 1.1 RATIO (0.9-2.4); AST(SGOT) 12 U/L (15-37); Alanine Aminotransfer ALT/SGPT 17 U/L (13-56); Albumin, Serum 3.9 g/dL (3.2-5.0); Alkaline Phosphatase 47 U/L (45-117); Anion Gap 8 (5-15); BUN 11 mg/dL (7-18); BUN/Creat Ratio 14.9 RATIO (10-20); Calcium,Total 8.9 mg/dL (8.5-10.1); Chloride 109 mmol/L (98-107); Cholesterol 144 mg/dL (200); Creatinine, Serum 0.74 mg/dL (0.55-1.02); EST Glomerular Filtration Rate 92 mL/min (>60); Est Glom Filt Rate - Afr Amer 111 mL/min (>60); Globulin 3.4 g/dL (2.2-4.2); Glucose 74 mg/dL (74-106); High Density Lipoprotein 62 mg/dL; Lipase 81 U/L (13-75); Magnesium 2.3 mg/dL (1.6-2.6); Potassium 3.2 mmol/L (3.5-5.1); Protein, Total 7.3 g/dL (6.4-8.2); Sodium Level 141 mmol/L (136-145); Thyroid Stim Hormone (TSH) 0.85 uIU/mL (0.358-3.74); Triglycerides 87 mg/dL; Very Low Density Lipoprotein 17 mg/dL (5-40)
[2023-09-28 13:16] LABS: PTHIN 35.9 pg/mL (18.4-80.1)
[2023-10-01 15:08] LABS: Deamidated Gliadin IgA 4 units (0-19); Deamidated Gliadin IgG 2 units (0-19); Endomysial Antibody IgA Negative (Negative); Immunoglobulin A 172 mg/dL (87-352); t-Transglutaminase IgA <2 U/mL (0-3)
== END | disposition home or self-care (01) ==
PROVIDERS: PCP Family Medicine; Referring Provider Family Medicine; Visit Provider Family Medicine
DX: K58.1 Irritable bowel syndrome with constipation (principal); R14.0 Abdominal distension (gaseous); R10.9 Unspecified abdominal pain; Z13.220 Encounter for screening for lipoid disorders
CPT/HCPCS: 36415; 80053; 80061; 82784; 83516; 83690; 83735; 83970; 84443; 85025; 86255

== ENCOUNTER 2023-10-28 03:28 | Emergency (ER) | payer MEDICAID, SELFPAY ==
[2023-10-28 03:30] VITALS: BP 100/81; PULSE 69; RESP 16; TEMP 36.2; O2SAT 99; BMI 20.5
--- NOTE | 2023-10-28 03:55 | RAD_ITS ---
EXAM: XR ABDOMEN, 2 VIEWS AND XR CHEST, 1 VIEW CLINICAL INDICATION: ABD PAIN TECHNIQUE: Frontal view of the chest, frontal view of the abdomen/pelvis and upright or decubitus view of the abdomen. COMPARISON: Abdominal series 06/27/2021 FINDINGS: CHEST: LUNGS AND PLEURAL SPACES: Unremarkable. No consolidation or edema. No pneumothorax. No effusion. HEART: Unremarkable. Cardiac silhouette not enlarged. MEDIASTINUM: Central airways and mediastinal contour are unremarkable. ABDOMEN: INTRAPERITONEAL SPACE: No free air. GASTROINTESTINAL TRACT: Moderate amount of stool in the colon. Non-obstructive. No bowel or stomach distention. ORGANS: Unremarkable as visualized. No organomegaly. No abnormal calcifications. TUBES, LINES AND DEVICES: None. BONES/JOINTS: No acute findings. SOFT TISSUES: Tubal ligation clips. RAD/Acute Abdomen Inc Chest IMPRESSION: No acute findings in the chest, abdomen or pelvis. Moderate amount of stool in the colon. Electronically Signed: Osmin Quach MD at 4:46 EST ,
[2023-10-28 04:50] LABS: Bacteria 0 SEEN /hpf (None Seen); Mucous, Urine 0 SEEN /hpf (<or=2+); Red Blood Cells-Urine 0 SEEN /hpf (0-5); White Blood Cells 0 SEEN /hpf (0-5)
[2023-10-28 04:53] LABS: Color, Urine Yellow (Yellow); Glucose, Dipstick Normal (Normal); Ketone-Dipstick 5 mg/dl (Negative); Leukocyte Esterase-Dipstick Negative /ul (Negative); Nitrite-Dipstick Negative (Negative); Occult Blood-Urine Negative /ul (Negative); Protein-Dipstick Negative (Negative); Specific Gravity, Urine 1.005 (1.002-1.030); Urine Bilirubin Dipstick Negative (Negative); Urine Clarity Clear (Clear); Urine Urobilinogen Normal (Normal)
[2023-10-28 05:01] LABS: Squamous Epithelial Cells - UA 0-5 SEEN /hpf (5-10)
--- NOTE | 2023-10-28 05:13 | EX.ED.DYSGE1 ---
HPI History of Present Illness Chief Complaint: Abd Pain Informant: patient Narrative Narrative: Patient is a 43-year-old female with past medical history of irritable bowel syndrome. She states that she has been worked up for different pathologies of her current abdominal discomfort such as celiac disease and has had previous colonoscopies but her ultimate diagnosis is IBS. Patient states she has been doing MiraLAX twice a day as directed and was having bowel movements to reduce to once a day and then became more constipated once again. She states that she was sleeping and then awoke with a discomfort/swelling sensation in the right side of her abdomen. She denies any vomiting associated with this or trauma. She denies any urinary complaints and states concern for is extremely low as she has had a previous tubal ligation. She also states she has had a previous kidney stone and this does not feel similar. However with pain being more right-sided she was concerned about potential infection and therefore comes in for evaluation [facility] Medical History (Updated 10/28/23 @ 06:[address] Jones Encarnacion DO) Anxiety IBS (irritable bowel syndrome) Home Medications linaclotide 145 mcg capsule (Linzess) 145 mcg PO DAILY 30 days #30 caps 10/28/23 [Rx Last Taken Unknown] polyethylene glycol 3350 17 gram/dose oral powder (ClearLax) 17 g PO BID 10/28/23 [History Last Taken Unknown] sertraline 25 mg tablet (Zoloft) 12.5 mg PO DAILY 10/28/23 [History Last Taken Unknown] Allergy/AdvReac Type Severity Reaction Status Date / Time codeine Allergy Unknown Verified 10/28/23 03:29 Surgical History History of tonsillectomy History of tubal ligation Social History household members: children Smoking Status: Former smoker alcohol intake: current alcohol intake frequency: holidays/special occasions only substance use type: does not use ROS ROS ED Constitutional Constitutional ED: Denies chills or fever(s) ENT ENT ED: Denies sore throat Cardiovascular Cardiovascular: Denies chest pain Respiratory/Chest Respiratory/Chest: Denies cough or dyspnea Gastrointestinal Gastrointestinal: Reports abdominal pain and constipation; Denies diarrhea, nausea or vomiting Genitourinary Genitourinary ED: Denies dysuria or hematuria Musculoskeletal Musculoskeletal: Denies back pain or myalgias Integumentary Denies rash Neurologic Neurologic: Denies headache(s) Hematologic/Lymphatic Hematologic/Lymphatic: Denies easy bleeding or easy bruising EXAM Physical Exam Const Vital Signs: 10/28/23 03:30 Temperature 97.2 F L Temperature Source Temporal Pulse Rate 69 Respiratory Rate 16 Blood Pressure 100/81 H Blood Pressure Mean 87 Pulse Ox 99 Positive well nourished and well developed General Appearance ED: well developed; Negative for pallor HEENT Reports moist mucous membranes HEENT Narrative: No signs of infection noted in the posterior pharynx Eyes PERRL and EOMs intact bilaterally General Eye ED: Negative for scleral icterus Neck supple Resp normal respiratory effort and clear to auscultation bilaterally Cardio regular rate and regular rhythm Rate: other Other Details: Heart is regular rate and rhythm without murmurs rubs or gallops Radial and carotid pulses equal and symmetric GI GI Narrative: Abdomen is soft and has hypoactive bowel sounds. There is mild pain on palpation along the right upper mid and lower abdomen. No voluntary guarding or rigidity noted. There may be slight distention along the right abdomen with slight increase in tympany. Negative heel strike psoas and obturator signs. Auscultation: hypoactive bowel sounds Palpation: soft Back/Spine no CVA tenderness Extremity normal to inspection Neuro oriented x3, CN's II-XII intact bilaterally and no sensory deficits noted Sensorium / Orientation: alert Motor Exam: strength 5/5 throughout Psych mental status grossly normal Skin no rashes or lesions noted General Skin Exam: Negative for jaundice or pallor MDM MDM MDM Narrative Medical decision making narrative: Patient presented to the ER with stable vitals and history and exam is most consistent with IBS. However differential diagnosis is also for UTI versus kidney stone versus fecal impaction versus bowel obstruction versus ileus. Based on her stable vitals and physical exam I do not feel there is need for blood work but urine sample was obtained as well as acute abdominal series. Urine shows no sign of infection or blood going against kidney stone and no sterile pyuria going against acute appendicitis. Patient's x-ray revealed no air-fluid levels going against obstruction but there was distention of the intestine consistent with constipation which fits her physical exam and history. Therefore this time I do not feel there is need for further workup and patient can be discharged home and begin taking a IBS C medication to try to help resolve symptoms History & Record Review Discussion w/independent historian: Patient Lab Data Attestation: I reviewed the patient's lab results. Labs: Laboratory Results - last 24 hr 10/28/23 04:38 Urine Color Yellow Urine Clarity Clear Urine pH 7.0 Ur Specific Benoit 1.005 Urine Protein Negative Urine Glucose (UA) Normal Urine Ketones 5 H Urine Occult Blood Negative Urine Nitrite Negative Urine Bilirubin Negative Urine Urobilinogen Normal Ur Leukocyte Esterase Negative Urine RBC 0 SEEN Urine WBC 0 SEEN Ur Squamous Epith Cells 0-5 SEEN Urine Bacteria 0 SEEN Urine Mucus 0 SEEN Radiography Diagnostic Testing: Clinical Impression(s) from Imaging Studies Acute Abdomen Series 10/28/23 03:55 IMPRESSION: No acute findings in the chest, abdomen or pelvis. Moderate amount of stool in the colon. Electronically Signed: Osmin Quach MD at 4:46 EST Reading Location ID and State: [facility] / [place] Tel , Service support , Acute abdominal series with 1 view chest as interpreted by the emergency medicine physician reveals a nonobstructive nonspecific bowel gas pattern without perforation and mild distention throughout the colon consistent with constipation. 1 view chest x-ray component reveals no acute infiltrate pneumothorax or pleural effusion. Discharge Plan Triage Chief Complaint: Abd Pain ED Provider: Jones Encarnacion Dx/Rx/DC Orders Clinical Impression: Irritable bowel syndrome (IBS), History of anxiety Instructions: ED Constipation (Adult), ED Irritable Bowel Syndrome Prescriptions: New Linzess 145 mcg capsule 145 mcg PO DAILY 30 Days Qty: 30 2RF No Action polyethylene glycol 3350 [ClearLax] 17 gram/dose powder 17 g PO BID sertraline [Zoloft] 25 mg tablet 12.5 mg PO DAILY Patient Comments: STARTED 10/27 TAKE A HALF FOR 6 DAYS THEN GO TO [facility] Primary Care Provider: Lisandro Simons Referrals: Lisandro Simons MD [Primary Care Provider] - Activity Restrictions/Additional Instructions: Your exam today indicates your symptoms are related to constipation and irritable bowel syndrome. Take the Linzess as directed to help reduce symptoms and you may stop the MiraLAX. Return to the ER should you have worsening symptoms or any further concerns Disposition Disposition: Home, Self Care Discharge Date/Time: 10/28/23 05:26
== END 2023-10-28 05:26 | disposition home or self-care (01) ==
PROVIDERS: Emergency Provider Emergency Medicine; PCP Family Medicine; Visit Provider Emergency Medicine
DX: K58.9 Irritable bowel syndrome, unspecified (principal); F41.9 Anxiety disorder, unspecified; Z87.891 Personal history of nicotine dependence; Z79.899 Other long term (current) drug therapy; Z98.51 Tubal ligation status
CPT/HCPCS: 74022; 81001; 99282

== ENCOUNTER 2023-11-19 23:00 | Emergency (ER) | payer MEDICAID, SELFPAY ==
[2023-11-19 23:03] VITALS: BP 116/74; PULSE 94; RESP 18; TEMP 35.9; O2SAT 99; BMI 20.2
[2023-11-19 23:04] VITALS: BP 116/74; PULSE 94; RESP 18; TEMP 35.9; O2SAT 99
--- NOTE | 2023-11-19 23:19 | CT_ITS ---
EXAM: CT Abdomen And Pelvis W/O Contrast Injection HISTORY: flank pain TECHNIQUE: Routine protocol CT abdomen and pelvis. IV Contrast: None.. Oral contrast: None. RADIATION DOSAGE (If Supplied By Facility): CTDIvol = ( 6.04 ) mGy, DLP = ( 285.40 ) mGycm Individualized dose optimization techniques were used for this CT. COMPARISON: CT abdomen and pelvis 03/06/2021. LIMITATIONS: None. FINDINGS: LOWER CHEST: Included lung bases are clear. LIVER: Grossly unremarkable. GALLBLADDER AND BILIARY TREE: Grossly unremarkable. PANCREAS: Grossly unremarkable. SPLEEN: Grossly unremarkable. ADRENAL GLANDS: Grossly unremarkable. KIDNEYS AND URETERS: No calculi demonstrated. No hydronephrosis. PERITONEUM: No free air. . Small amount of free fluid in the pelvis BOWEL: No bowel obstruction. Moderate amount of stool throughout the colon APPENDIX: Not identified. VESSELS: Abdominal aorta is normal caliber. REPRODUCTIVE ORGANS: Grossly unremarkable. Surgical clips in the adnexal regions. URINARY BLADDER: Grossly unremarkable. ABDOMINAL WALL: Unremarkable. BONES: No acute abnormalities. CT/Abdomen/Pelvis without Cont IMPRESSION: No acute findings. Electronically Signed: Sangeeta Corral MD at 0:14 EST ,
[2023-11-19] MEDS: Ketorolac 30 MG/ML Syringe IV (23:26)
[2023-11-19] MEDS: 0.9% Normal Saline (1000mL) 1,000 ML 999 ML IV (23:26)
[2023-11-19 23:27] LABS: Absolute Lymphocyte Count 2.21 X10^3/uL (0.83-4.51); Basophil# 0.02 X10^3/uL; Basophil% 0.3 % (0-1); Eosinophils% 1.7 % (0-5); Hematocrit 40.9 % (37-47); Hemoglobin 14.3 g/dL (12.0-15.0); Lymphocyte # 2.21 X10^3/ul (0.83-4.51); Lymphocyte % 37.9 % (19-41); Mean Corpuscular Hgb 32.8 pg (27.0-32.0); Mean Corpuscular Volume 93.8 fL (81-99); Monocyte# 0.51 X10^3/uL; Monocyte% 8.7 % (0-10); NRBC Flagged by Analyzer 0 % (0-5); Neutrophil # 2.98 X10^3/uL (2.7-7.7); Neutrophil % 51.2 % (47-70); Platelet Count 248 K/mm3 (150-450); RBC Distribution Width CV 12.6 % (11.6-14.6); RBC Distribution Width SD 43.5 fl (35.1-43.9); Red Blood Count 4.36 M/mm3 (4.2-5.4); White Blood Count 5.8 K/mm3 (4.4-11.0)
[2023-11-19 23:36] LABS: Bacteria 0 SEEN /hpf (None Seen); Mucous, Urine 0 SEEN /hpf (<or=2+); Red Blood Cells-Urine 0 SEEN /hpf (0-5); White Blood Cells 0 SEEN /hpf (0-5)
[2023-11-19 23:42] LABS: Anion Gap 6 (5-15); BUN 11 mg/dL (7-18); BUN/Creat Ratio 14.6 RATIO (10-20); Calcium,Total 8.8 mg/dL (8.5-10.1); Chloride 106 mmol/L (98-107); Creatinine, Serum 0.75 mg/dL (0.55-1.02); EST Glomerular Filtration Rate 90 mL/min (>60); Est Glom Filt Rate - Afr Amer 108 mL/min (>60); Estimated Creatinine Clearance 82.68 ml/min; Glucose 100 mg/dL (74-106); Potassium 3.3 mmol/L (3.5-5.1); Sodium Level 138 mmol/L (136-145)
[2023-11-19 23:43] LABS: Color, Urine Straw (Yellow); Glucose, Dipstick Normal (Normal); Ketone-Dipstick Negative (Negative); Leukocyte Esterase-Dipstick Negative /ul (Negative); Nitrite-Dipstick Negative (Negative); Occult Blood-Urine Negative /ul (Negative); Protein-Dipstick Negative (Negative); Urine Bilirubin Dipstick Negative (Negative); Urine Clarity Clear (Clear); Urine Urobilinogen Normal (Normal)
--- OUTSIDE RECORDS SUMMARY | 2023-11-19 23:43 | XMS RPT_ITS | CCD ---
Author Name Unknown Address [address] [place] [address] Organization [facility] Care Team Providers Care Branch General Manager Name Role Phone Leia Simons MD Primary Care Provider SIMONS, LEIA A Primary Care Unavailable LIDIA FAIRBANKS Attending Unavail able SIMONS, LEIA A Primary Care Unavailable SIMONS, LEIA A Primary Care Unavailable SIMONS, LEIA A Primary Care Unavailable LANIE NOWAK Referring Unavailable GLASER, IVON Referring Unavailable SIMONS, LEIA A Primary Care Unavailable SIMONS, LEIA A Primary Care Unavailable GLASER, IVON Attending Unavailable SIMONS, LEIA A Primary Care Unavailable GLASER, IVON Attending Unavailable SIMONS, LEIA A Primary Care Unavailable GLASER, IVON Attending Unavailable SIMONS, LEIA A Primary Care Unavailable SIMONS, LEIA A Primary Care Unavailable SIMONS, LEIA A Primary Care Unavailable SIMONS, LEIA A Primary Care Unavailable SIMONS, LEIA A Primary Care Unavailable SIMONS, LEIA A Primary Care Unavailable GLASER, IVON Attending Unavailable SIMONS, LEIA A Primary Care Unavailable GLASER, IVON Referring Unavailable SIMONS, LEIA A Primary Care Unavailable GLASER, IVON Referring Unavailable SIMONS, LEIA A Primary Care Unavailable GLASER, IVON Attending Unavailable GLASER, IVON Referring Unavailable LINDA HUFF Attending Unavailable SIMONS, LEIA A Primary Care Unavailable LINDA HUFF Attending Unavailable SIMONS, LEIA A Primary Care Unavailable SUZANNE SALINAS Attending Unavailable SIMONS, LEIA A Primary Care Unavailable Allergies Allergy Classification Reported Allergen(s) Allergy Type Date of Onset Reaction(s) Facility (20 sources) Codeine; Translations: [CODEINE] Drug Allergy 10-01-2008 [facility] Work Phone: (20 sources) nickel; Translations: [NICKEL] Drug Allergy 11-07-2011 [facility] Work Phone: (18 sources) Latex; Translations: [LATEX] Drug Allergy 02-13-2023 [facility] Medications Current Medications Medication Drug Class(es) Dates Sig (Normalized) Sig (Original) amoxicillin 500 mg oral capsule (2 sources) Penicillin-class Antibacterial Start: 11-04-2022 End: 11-14-2022 take 1 capsule by mouth twice daily amoxicillin (POLYMOX, AMOXIL) 500 mg capsule Take 1 capsule by mouth twice daily for 10 days. 20 capsule 0 11/04/2022 11/14/2022 Active Completed/Discontinued Medications Medication Drug Class(es) Dates Sig (Normalized) Sig (Original) betamethasone 0.5 mg/ml / clotrimazole 10 mg/ml topical cream (18 sources) Azole Antifungal, Corticosteroid Start: 05-04-2021 clotrimazole-beta methasone (LOTRISONE) cream Indications: Acute vaginitis , Labia irritation Apply 1 application to affected area twice daily. 15 g 2 05/04/2021 Active Problems Active Problems Problem Classification Problem Date Documented Date Episodic/Chronic Genitourinary symptoms and ill-defined conditions (1 source) Dysuria; Translations: [Painful micturition, unspecified] 06-02-2023 Episodic Nonmalignant breast conditions (1 source) Extremely dense breast composition; Translations: [Extremely dense tissue of both breasts on mammography] 10-05-2023 Episodic Other female genital disorders (5 sources) Vaginal discharge; Translations: [Other specified noninflammatory disorders of vagina] Episodic Other female genital disorders (3 sources) Vaginal irritation; Translations: [Other specified noninflammatory disorders of vagina] Episodic Other female genital disorders (2 sources) Pruritus of vagina; Translations: [Other specified noninflammatory disorders of vagina] Episodic Other screening for suspected conditions (not mental disorders or infectious disease) (7 sources) Patient encounter status; Translations: [Encounter for screening mammogram for malignant neoplasm of breast] Onset: 10-05-2023 10-05-2023 Episodic Other upper respiratory infections (3 sources) Streptococcal sore throat; Translations: [Streptococcal pharyngitis] Episodic Residual codes; unclassified (1 source) Pain; Translations: [Pain, unspecified] Episodic Unclassified (1 source) Extremely dense tissue of both breasts on mammography; Translations: [Extremely dense tissue of both breasts on mammography] Onset: 10-05-2023 Urinary tract infections (1 source) Urinary tract infectious disease; Translations: [Urinary tract infection, site not specified] 06-07-2023 Episodic Past or Other Problems Problem Classification Problem Date Documented Da te Episodic/Chronic Inflammatory diseases of female pelvic organs (4 sources) Acute vaginitis; Translations: [Acute vaginitis] Onset: 01-10-2023 Episodic Other circulatory disease (20 sources) Low blood pressure; Translations: [Hypotension, unspecified] Onset: 03-07-2017 03-07-2017 Episodic Other female genital disorders (1 source) Other specified noninflammatory disorders of vagina; Translations: [Vaginal discharge] Onset: 01-10-2023 Episodic Other gastrointestinal disorders (8 sources) Constipation; Translations: [Constipation, unspecified] Onset: 06-02-2014 08-09-2023 Episodic Residual codes; unclassified (1 source) Pain, unspecified; Translations: [Pain] Onset: 03-20-2023 Episodic Results Test Name Value Interpretation Reference Range Facil ity Vital Signs Date Time Vital Sign Value Performing Clinician Faci lity 10-30-2023 15:02-0500 Body height 162.6 cm Suzanne Salinas MD Work Phone: [facility] 10-30-2023 15:02-0500 Body temperature 98.29 [degF] Suzanen Salinas MD Work Phone: [facility] 10-30-2023 15:02-0500 Body weight 54.16 kg Suzanne Salinas MD Work Phone: [facility] 10-30-2023 15:02-0500 Diastolic blood pressure 82 mm[Hg] Suzanne Salinas MD Work Phone: [facility] 10-30-2023 15:02-0500 Heart rate 100 /min Suzanne Salinas MD Work Phone: [facility] 10-30-2023 15:02-0500 SaO2% (BldA) [Mass fraction] 99 % Suzanne Salinas MD Work Phone: [facility] 10-30-2023 15:02-0500 Systolic blood pressure 106 mm[Hg] Suzanne Salinas MD Work Phone: [facility] 08-09-2023 08:36-0400 Body weight 54.43 kg Ivon Glaser APRN.TURN MACHINE OPERATOR Work Phone: [facility] 08-09-2023 08:36-0400 Diastolic blood pressure 60 mm[Hg] Ivon Glaser APRN.TURN MACHINE OPERATOR Work Phone: [facility] 08-09-2023 08:36-0400 Systolic blood pressure 96 mm[Hg] Ivon Glaser APRN.TURN MACHINE OPERATOR Work Phone: [facility] 06-07-2023 12:40-0400 Body weight 55.34 kg Ivon Glaser APRN.TURN MACHINE OPERATOR Work Phone: [facility] 06-07-2023 12:40-0400 Diastolic blood pressure 60 mm[Hg] Ivon Glaser APRN.TURN MACHINE OPERATOR Work Phone: [facility] 06-07-2023 12:40-0400 Systolic blood pressure 104 mm[Hg] Ivon Glaser APRN.TURN MACHINE OPERATOR Work Phone: [facility] 06-02-2023 09:00-0400 Body weight 54.88 kg Krislyn Aberegg PA Work Phone: [facility] 06-02-2023 09:00-0400 Diastolic blood pressure 52 mm[Hg] Krislyn Aberegg PA Work Phone: [facility] 06-02-2023 09:00-0400 Heart rate 72 /min Krislyn Aberegg PA Work Phone: [facility] 06-02-2023 09:00-0400 Respiratory rate 16 /min Krislyn Aberegg PA Work Phone: [facility] 06-02-2023 09:00-0400 SaO2% (BldA) [Mass fraction] 98 % Krislyn Aberegg PA Work Phone: [facility] 06-02-2023 09:00-0400 Systolic blood pressure 80 mm[Hg] Krislyn Aberegg PA Work Phone: [facility] 05-23-2023 09:50-0400 Body temperature 98.01 [degF] Katherine Mateo MEDICAL LAB SCIENTIST.TURN MACHINE OPERATOR Work Phone: [facility] 05-23-2023 09:50-0400 Body weight 55.34 kg Katherine Mateo MEDICAL LAB SCIENTIST.TURN MACHINE OPERATOR Work Phone: [facility] 05-23-2023 09:50-0400 Diastolic blood pressure 66 mm[Hg] Katherine Mateo MEDICAL LAB SCIENTIST.TURN MACHINE OPERATOR Work Phone: [facility] 05-23-2023 09:50-0400 Heart rate 66 /min Katherine Mateo MEDICAL LAB SCIENTIST.TURN MACHINE OPERATOR Work Phone: [facility] 05-23-2023 09:50-0400 Respiratory rate 16 /min Katherine Mateo MEDICAL LAB SCIENTIST.TURN MACHINE OPERATOR Work Phone: [facility] 05-23-2023 09:50-0400 SaO2% (BldA) [Mass fraction] 100 % Katherine Mateo MEDICAL LAB SCIENTIST.TURN MACHINE OPERATOR Work Phone: [facility] 05-23-2023 09:50-0400 Systolic blood pressure 122 mm[Hg] Katherine Mateo MEDICAL LAB SCIENTIST.TURN MACHINE OPERATOR Work Phone: [facility] 04-01-2023 08:53-0400 Body temperature 97.9 [degF] Lanie Nowak MEDICAL LAB SCIENTIST.TURN MACHINE OPERATOR Work Phone: [facility] 04-01-2023 08:53-0400 Body weight 55.34 kg Lanie Nowak MEDICAL LAB SCIENTIST.TURN MACHINE OPERATOR Work Phone: [facility] 04-01-2023 08:53-0400 Diastolic blood pressure 70 mm[Hg] Lanie Nowak MEDICAL LAB SCIENTIST.TURN MACHINE OPERATOR Work Phone: [facility] 04-01-2023 08:53-0400 Heart rate 97 /min Lanie Nowak MEDICAL LAB SCIENTIST.TURN MACHINE OPERATOR Work Phone: [facility] 04-01-2023 08:53-0400 Respiratory rate 16 /min Lanie Nowak APRN.TURN MACHINE OPERATOR Work Phone: [facility] 04-01-2023 08:53-0400 SaO2% (BldA) [Mass fraction] 97 % Lanie Nowak APRN.TURN MACHINE OPERATOR Work Phone: [facility] 04-01-2023 08:53-0400 Systolic blood pressure 90 mm[Hg] Lanie Nowak APRN.TURN MACHINE OPERATOR Work Phone: [facility] 03-20-2023 14:08-0400 Body temperature 98.01 [degF] Lanie Nowak APRN.TURN MACHINE OPERATOR Work Phone: [facility] 03-20-2023 14:08-0400 Body weight 57.15 kg Lanie Nowak APRN.TURN MACHINE OPERATOR Work Phone: [facility] 03-20-2023 14:08-0400 Diastolic blood pressure 62 mm[Hg] Lanie Nowak APRN.TURN MACHINE OPERATOR Work Phone: [facility] 03-20-2023 14:08-0400 Heart rate 70 /min Lanie Nowak APRN.TURN MACHINE OPERATOR Work Phone: [facility] 03-20-2023 14:08-0400 Respiratory rate 16 /min Lanie Nowak APRN.TURN MACHINE OPERATOR Work Phone: [facility] 03-20-2023 14:08-0400 SaO2% (BldA) [Mass fraction] 98 % Lanie Nowak APRN.TURN MACHINE OPERATOR Work Phone: [facility] 03-20-2023 14:08-0400 Systolic blood pressure 90 mm[Hg] Lanie Nowak APRN.TURN MACHINE OPERATOR Work Phone: [facility] 03-13-2023 13:49-0400 Body temperature 98.01 [degF] Sharee LIMA-C Work Phone: [facility] 03-13-2023 13:49-0400 Body weight 55.79 kg Sharee Church PA-C Work Phone: [facility] 03-13-2023 13:49-0400 Diastolic blood pressure 62 mm[Hg] Sharee Athy PA-C Work Phone: [facility] 03-13-2023 13:49-0400 Heart rate 92 /min Sharee Athy PA-C Work Phone: [facility] 03-13-2023 13:49-0400 Respiratory rate 16 /min Sharee Athy PA-C Work Phone: [facility] 03-13-2023 13:49-0400 SaO2% (BldA) [Mass fraction] 97 % Sharee Athy PA-C Work Phone: [facility] 03-13-2023 13:49-0400 Systolic blood pressure 90 mm[Hg] Sharee Athy PA-C Work Phone: [facility] 12-27-2022 14:14-0500 Body weight 56.61 kg Linda Plotts MEDICAL LAB SCIENTIST.CNM Work Phone: [facility] 12-27-2022 14:14-0500 Diastolic blood pressure 60 mm[Hg] Linda Plotts MEDICAL LAB SCIENTIST.CNM Work Phone: [facility] 12-27-2022 14:14-0500 Systolic blood pressure 100 mm[Hg] Linda Plotts MEDICAL LAB SCIENTIST.CNM Work Phone: [facility] 12-12-2022 13:57-0500 Body weight 56.25 kg Linda Plotts MEDICAL LAB SCIENTIST.CNM Work Phone: [facility] 12-12-2022 13:57-0500 Diastolic blood pressure 60 mm[Hg] Linda Plotts MEDICAL LAB SCIENTIST.CNM Work Phone: [facility] 12-12-2022 13:57-0500 Systolic blood pressure 96 mm[Hg] Linda Plotts MEDICAL LAB SCIENTIST.CNM Work Phone: [facility] 11-29-2022 14:35-0500 Body weight 56.79 kg Ivon Glaser APRN.TURN MACHINE OPERATOR Work Phone: [facility] 11-29-2022 14:35-0500 Diastolic blood pressure 60 mm[Hg] Ivon Glaser MEDICAL LAB SCIENTIST.TURN MACHINE OPERATOR Work Phone: [facility] 11-29-2022 14:35-0500 Systolic blood pressure 100 mm[Hg] Ivon Glaser MEDICAL LAB SCIENTIST.TURN MACHINE OPERATOR Work Phone: [facility] 11-07-2022 13:56-0500 Body weight 56.97 kg Ivon Glaser MEDICAL LAB SCIENTIST.TURN MACHINE OPERATOR Work Phone: [facility] 11-07-2022 13:56-0500 Diastolic blood pressure 60 mm[Hg] Ivon Glaser MEDICAL LAB SCIENTIST.TURN MACHINE OPERATOR Work Phone: [facility] 11-07-2022 13:56-0500 Systolic blood pressure 100 mm[Hg] Ivon Montezie MEDICAL LAB SCIENTIST.TURN MACHINE OPERATOR Work Phone: [facility] 11-04-2022 08:48-0500 Body temperature 98.4 [degF] Vreonica Lake MEDICAL LAB SCIENTIST.TURN MACHINE OPERATOR Work Phone: [facility] 11-04-2022 08:48-0500 Body weight 56.06 kg Veronica Lake MEDICAL LAB SCIENTIST.TURN MACHINE OPERATOR Work Phone: [facility] 11-04-2022 08:48-0500 Diastolic blood pressure 78 mm[Hg] Veronica Lake MEDICAL LAB SCIENTIST.TURN MACHINE OPERATOR Work Phone: [facility] 11-04-2022 08:48-0500 Heart rate 102 /min Veronica Lake MEDICAL LAB SCIENTIST.TURN MACHINE OPERATOR Work Phone: [facility] 11-04-2022 08:48-0500 Respiratory rate 18 /min Veronica Lake MEDICAL LAB SCIENTIST.TURN MACHINE OPERATOR Work Phone: [facility] 11-04-2022 08:48-0500 SaO2% (BldA) [Mass fraction] 98 % Veronica Lake MEDICAL LAB SCIENTIST.TURN MACHINE OPERATOR Work Phone: [facility] 11-04-2022 08:48-0500 Systolic blood pressure 106 mm[Hg] Veronica Lake MEDICAL LAB SCIENTIST.TURN MACHINE OPERATOR Work Phone: [facility] 07-17-2022 15:39-0400 Body weight 57.15 kg Liseth Stevenson MD Work Phone: [facility] 07-17-2022 15:39-0400 Diastolic blood pressure 62 mm[Hg] Liseth Stevenson MD Work Phone: [facility] 07-17-2022 15:39-0400 Systolic blood pressure 118 mm[Hg] Liseth Stevenson MD Work Phone: [facility] Encounters Encounter Date Encounter Type Care Provider Facility Start: 10-30-2023 End: 10-31-2023 ambulatory SUZANNE SALINAS Facility:[facility] Start: 10-30-2023 End: 10-30-2023 Patient encounter procedure Suzanne Salinas MD Work Phone: General Surgery Procedures Date Procedure Procedure Detail Performing Clinician Start: 10-23-2023 Us breast uni real t tarun with image limited Ivon Glaser APRN.TURN MACHINE OPERATOR Work Phone: Start: 10-23-2023 Digital breast tomosynthesis unilateral Anuradha Colvin APRN.TURN MACHINE OPERATOR Work Phone: Start: 06-02-2023 Urnls dip stick/tabl et rgnt auto w/o microscopy Aleta LIMA Work Phone: Start: 04-01-2023 STREP A MOLECULAR (POC) Lanie Nowak APRN.TURN MACHINE OPERATOR Work Phone: Start: 11-04-2022 STREP A MOLECULAR (POC) [facility] Provider Start: 07-17-2022 BACTERIAL VAGINOSIS AMPLIFICATION Liseth Stevenson MD Work Phone: Start: 07-17-2022 [place]ad[place] trichomonas [facility] amplified probe tech Liseth Stevenson MD Work Phone: Start: 07-01-2021 Mammography Liseth turner MD Work Phone: Plan of Treatment Date Care Activity Detail Author Start: 09-20-2028 HPV Testing HPV Testing [facility] Start: 09-20-2028 Pap Testing Pap Testing [facility] Start: 09-20-2028 Screening for malignant neoplasm of cervix [facility] Start: 11-05-2024 Urine microalbumin profile [facility] Start: 10-05-2024 Mammography Mammogram Screening [facility] Start: 10-05-2024 Screening for malignant neoplasm of breast Mammogram Screening [facility] Start: 08-08-2023 HPV TESTING HPV TESTING [facility] Start: 08-08-2023 PAP TESTING PAP TESTING [facility] Start: 07-20-2023 Influenza vaccination [facility] Start: 06-02-2023 End: 08-02-2023 Bacteria identified in Urine by Culture URINE CULTURE Microbiology Routine Pain with urination Expected: 06/02/2023, Expires: 08/02/2023 [facility] Work Phone: Immunizations Immunization Date Immunization Notes Care Provider Joseph bazzi 11-05-2014 tetanus toxoid, redu ranjeet diphtheria toxoid, and acellular pertussis vaccine, adsorbed Liseth Stevenson MD Work Phone: [facility] Payers Date Payer Category Payer Medicaid [id number] 2017 Medicaid [id number] 2017 Medicaid [id number] Social History Date Type Detail Facility Start: 07-17-2022 Tobacco smoking stat us UTIS Ex-smoker [facility] End: 07-20-2009 History of tobacco use Current smoker [facility] End: 07-20-2009 History of tobacco use Cigarette Smoker [facility] Start: 07-17-2022 End: 06-07-2023 Cigarettes smoked current (pack per day) - Reported 0.5 [facility] Start: 07-17-2022 Tobacco use and exposure Smoke less tobacco non-user [facility] Start: 07-17-2022 End: 10-30-2023 Alcohol intake Current drinker of alcohol (finding) [facility] Start: 06-02-2014 History SDOH Alcohol Comment Seldom, NOT WHILE [facility] Start: 1980 Sex Assigned At Not on file [facility] Start: 07-04-2022 End: 07-14-2022 Exposure to SARS-CoV-2 (event) Not sure [facility] Start: 06-02-2023 End: 06-07-2023 Tobacco use panel [facility] National Score (1-10 0), lower number is lower risk 68 [facility] Medical Equipment Procedure Code Equipment Code Equipment Origin al Text Equipment Identifier Dates Clip Filshie Cur ve Silastic Titanium Internal Soft Line Upper Jaw Tubal - [id number] Start: 03-22-2017 Clinical Notes 12-30-2014 to 10-30-2023 Suzanne Salinas MD - 10/30/2023 3:19 PM ESTTelephone Encounter - Carmelina Borges APRN.CNP - 10/24/2023 8:01 AM Gali Green RDMS - 10/23/2023 2:30 PM ESTPatient InstructionsPatient Instructions Note Date & Type Note Facility 10-30-2023 Note HNO ID: [id number] Author: Suzanne Salinas MD Service: ? Author Type: Physician Type: Progress Notes Filed: 10/31/2023 2:37 PM Note Text: Nevin Reed 1980 REFERRING PHYSICIAN: No ref. provider found CHIEF COMPLAINT: Consult (Abnormal mammogram) HPI: The patient is a 43 year old female presents with abnormal right breast ultrasound. She denies palpable breast masses, but states that her breasts always have been lumpy She denies nipple discharge. She denies chronic breast pain. She notes no breast and/or ovarian cancer in the family. Patient had breast mastitis in the past. Her gynecological history is as follows: menarche 14, , first 28, breast feeding 4m, LMP presently, no hormones US 10/23/2023 reveals 0.7 cm nodule of right breast at 10:00 for which biopsy is recommended PAST MEDICAL HISTORY Diagnosis Date Constipation Hypoglycemia Hypotension Kidney stones 11/19/2007 PAST SURGICAL HISTORY Procedure Laterality Date DILATION AND CURETTAGE DXAND/THER NONOBSTETRIC 2008 SAB PAST SURGICAL HISTORY OF 2012 wisdom teeth ext TONSILLECTOMY PRIMARY/SECONDARY Tonsillectomy TUBAL LIGATION HX 03/22/2017 LAPAROSCOPIC LIGATION TUBAL FILSHIE CLIPS Current Outpatient Medications Medication Sig sertraline (ZOLOFT) 25 mg tablet Take 25 mg by mouth once daily. Patient took 12.5mg of zoloft Lactobac no.41/Bifidobact no.7 (PROBIOTIC-10 ORAL) Take by mouth. Plexus (Patient not taking: Reported on 09/20/2023) L. acidophilus-L. rhamnosus 15 billion cell cap Take 1 capsule by mouth once daily. FLORAJEN WOMEN. If on antibiotic, take at least 1-2 hours before or after antibiotic. KEEP REFRIGERATED (Patient not taking: Reported on 05/23/2023) No current facility-administered medications for this visit. ALLERGIES: Codeine, Latex, and Nickel PERSONAL HISTORY: Social History Tobacco Use Smoking status: Former Packs/day: .5 Types: Cigarettes Quit date: 07/20/2009 Years since quittin.2 Smokeless tobacco: Never Vaping Use Vaping Use: Never used Substance Use Topics Alcohol use: Yes Comment: Seldom, NOT WHILE Drug use: No FAMILY HISTORY Problem Relation Age of Onset No Known Problems Mother other (arthiritis) Father No Known Problems Sister other (heart murmer) Brother Heart Brother Cancer Maternal Grandfather 55 stomach Cancer Paternal Grandfather lung Asthma Son Cervical Cancer Other paternal cousin REVIEW OF SYMPTOMS: The review of systems data was entered by the nurse and reviewed by me There are no exam notes on file for this visit. PHYSICAL EXAMINATION: General: The patient is 43 year old female, well nourished, well hydrated in no acute distress. The patient is oriented to time, place, and person. VITALS: Blood pressure 106/82, pulse 100, temperature 36.8 ?C (98.3 ?F), height 162.6 cm (5' 4 ), weight 54.2 kg (119 lb 6.4 oz), last menstrual period 09/10/2023, SpO2 99%. Body mass index is 20.49 kg/m?. Head - Normocephalic. EOM intact with sclera clear and no icterus noted. Mouth with mucus membranes moist. Neck - supple with no jugular venous distention noted. Trachea is midline. No carotid bruits noted. No thyroid enlargement or thyroid nodules detected. No masses noted. Chest/breast - no asymmetry of breasts noted, no suspicious skin lesions noted, no nipple discharge and both nipples everted, no breast masses noted Lungs - clear to auscultation. Normal breath sounds. No rales/rhonchi/wheezing noted. No labored breathing noted, such as retractions. No cough heard. Heart - normal S1 and S2 auscultated. No rubs/clicks/murmurs noted. Regular rate. Abdomen - soft and benign. Normal bowel sounds No abdominal bruits noted. Difficult to determine if any masses or organomegaly due to body habitus. Extremities - no calf tenderness noted. No pitting edema noted. Skin - normal skin integrity. Lymph - no cervical adenopathy detected, no supraclavicular adenopathy detected, no axillary adenopathy detected Neurological - gait normal, no focal deficits noted Psych - calm and appropriate Assessment IMPRESSION: abnormal right breast ultrasound PLAN: I have discussed the above with the patient. I have recommended US guided right needle core breast biopsy. To be done at [facility] center. I have placed a request for this. I have told patient that I will call her with the results. She is OK with the above. I have answered all questions to the patient?s satisfaction and the patient has no further questions. I have confirmed and edited as necessary, the PFSH and ROS obtained by others. . Diagnoses: (R92.8) Abnormal ultrasound of breast (primary encounter diagnosis) Medical Decision Making: Problems: Moderate: New problem with uncertain prognosis Data: Unique test result(s) reviewed: 1 Risk: Low: Low risk from testing/treatment Medical Decision Making (more content not included)... [facility] 10-30-2023 History of Presen t illness Narrative Nevin Reed 1980 REFERRING PHYSICIAN: No ref. provider found CHIEF COMPLAINT: Consult (Abnormal mammogram) HPI: The patient is a 43 year old female presents with abnormal right breast ultrasound. She denies palpable breast masses, but states that her breasts always have been lumpy She denies nipple discharge. She denies chronic breast pain. She notes no breast and/or ovarian cancer in the family. Patient had breast mastitis in the past. Her gynecological history is as follows: menarche 14, , first 28, breast feeding 4m, LMP presently, no hormones US 10/23/2023 reveals 0.7 cm nodule of right breast at 10:00 for which biopsy is recommended PAST MEDICAL HISTORY Diagnosis Date Constipation Hypoglycemia Hypotension Kidney stones 11/19/2007 PAST SURGICAL HISTORY Procedure Laterality Date DILATION & CURETTAGE DX&/THER NONOBSTETRIC 2008 SAB PAST SURGICAL HISTORY OF 2011 wisdom teeth ext TONSILLECTOMY PRIMARY/SECONDARY <AGE 13 Tonsillectomy TUBAL LIGATION HX 03/22/2017 LAPAROSCOPIC LIGATION TUBAL FILSHIE CLIPS Current Outpatient Medications Medication Sig sertraline (ZOLOFT) 25 mg tablet Take 25 mg by mouth once daily. Patient took 12.5mg of zoloft Lactobac no.41/Bifidobact no.7 (PROBIOTIC-10 ORAL) Take by mouth. Plexus (Patient not taking: Reported on 09/20/2023) L. acidophilus-L. rhamnosus 15 billion cell cap Take 1 capsule by mouth once daily. FLORAJEN WOMEN. If on antibiotic, take at least 1-2 hours before or after antibiotic. KEEP REFRIGERATED (Patient not taking: Reported on 05/23/2023) No current facility-administered medications for this visit. ALLERGIES: Codeine, Latex, and Nickel PERSONAL HISTORY: Social History Tobacco Use Smoking status: Former Packs/day: .5 Types: Cigarettes Quit date: 07/20/2009 Years since quittin.2 Smokeless tobacco: Never Vaping Use Vaping Use: Never used Substance Use Topics Alcohol use: Yes Comment: Seldom, NOT WHILE Drug use: No FAMILY HISTORY Problem Relation Age of Onset No Known Problems Mother other (arthiritis) Father No Known Problems Sister other (heart murmer) Brother Heart Brother Cancer Maternal Grandfather 55 stomach Cancer Paternal Grandfather lung Asthma Son Cervical Cancer Other paternal cousin REVIEW OF SYMPTOMS: The review of systems data was entered by the nurse and reviewed by me There are no exam notes on file for this visit. PHYSICAL EXAMINATION: General: The patient is 43 year old female, well nourished, well hydrated in no acute distress. The patient is oriented to time, place, and person. VITALS: Blood pressure 106/82, pulse 100, temperature 36.8 C (98.3 F), height 162.6 cm (5' 4 ), weight 54.2 kg (119 lb 6.4 oz), last menstrual period 09/10/2023, SpO2 99%. Body mass index is 20.49 kg/m . Head - Normocephalic. EOM intact with sclera clear and no icterus noted. Mouth with mucus membranes moist. Neck - supple with no jugular venous distention noted. Trachea is midline. No carotid bruits noted. No thyroid enlargement or thyroid nodules detected. No masses noted. Chest/breast - no asymmetry of breasts noted, no suspicious skin lesions noted, no nipple discharge and both nipples everted, no breast masses noted Lungs - clear to auscultation. Normal breath sounds. No rales/rhonchi/wheezing noted. No labored breathing noted, such as retractions. No cough heard. Heart - normal S1 and S2 auscultated. No rubs/clicks/murmurs noted. Regular rate. Abdomen - soft and benign. Normal bowel sounds No abdominal bruits noted. Difficult to determine if any masses or organomegaly due to body habitus. Extremities - no calf tenderness noted. No pitting edema noted. Skin - normal skin integrity. Lymph - no cervical adenopathy detected, no supraclavicular adenopathy detected, no axillary adenopathy detected Neurological - gait normal, no focal deficits noted Psych - calm and appropriate Assessment IMPRESSION: abnormal right breast ultrasound PLAN: I have discussed the above with the patient. I have recommended US guided right needle core breast biopsy. To be done at [facility] breast imaging center. I have placed a request for this. I have told patient that I will call her with the results. She is OK with the above. I have answered all questions to the patient s satisfaction and the patient has no further questions. I have confirmed and edited as necessary, the PFSH and ROS obtained by others. . Diagnoses: (R92.8) Abnormal ultrasound of breast (primary encounter diagnosis) Medical Decision Making: Problems: Moderate: New problem with uncertain prognosis Data: Unique test result(s) reviewed: 1 Risk: Low: Low risk from testing/treatment Medical Decision Making Level: 3 - Low Suzanne Salinas MD documented in this encounter [facility] 10-24-2023 Miscellaneous Notes Breast ultrasound reviewed. Biopsy recommended. Scheduled with Dr. Salinas on 11/07. Carmelina Borges APRN.STEPHEN documented in this encounter [facility] 10-23-2023 Note HNO ID: [id number] Author: Gali Cartagena RDMS Service: ? Author Type: Roller Printing Supervisor Type: Progress Notes Filed: 10/23/2023 4:27 PM Note Text: Radiology Service Progress Note PATIENT NAME: eNvin Reed DATE OF SERVICE: October 23, 2023 TIME: 4:27 PM PATIENT IDENTITY VERIFICATION COMPLETED USING TWO (2) IDENTIFIERS: Name and Date of confirmed by patient verbally. FALL SCREENING: Has the patient had 2 falls in the last year or 1 fall with injury or currently using an Ambulatory Assistive Device (Walker, Cane, Wheelchair, Crutches, etc.)? No PATIENT GENDER DATA: Female. status: : No status: NO. PATIENT RELEVANT IMPLANT DATA REVIEWED: Not Applicable RADIOLOGY DEPARTMENT: Ultrasound PERIPHERAL IV DATA: Not applicable SIGNED BY: Gali Cartagena RDMS October 23, 2023 4:[address] [facility] 10-23-2023 Note HNO ID: [id number] Author: Marilyn Pedersen Mammo Tech Service: ? Author Type: Roller Printing Supervisor Type: Progress Notes Filed: 10/23/2023 2:23 PM Note Text: Radiology Service Progress Note PATIENT NAME: Nevin Reed DATE OF SERVICE: October 23, 2023 TIME: 2:07 PM PATIENT IDENTITY VERIFICATION COMPLETED USING TWO (2) IDENTIFIERS: Name and Date of confirmed by patient verbally. FALL SCREENING: Has the patient had 2 falls in the last year or 1 fall with injury or currently using an Ambulatory Assistive Device (Walker, Cane, Wheelchair, Crutches, etc.)? No PATIENT GENDER DATA: Female. status: : No status: NO. PATIENT RELEVANT IMPLANT DATA REVIEWED: Not Applicable RADIOLOGY DEPARTMENT: Mammography PERIPHERAL IV DATA: Not applicable SIGNED BY: Gregory Ocasio October 23, 2023 2:[address] [facility] 10-23-2023 History of Presen t illness Narrative Radiology Service Progress Note PATIENT NAME: Nevin Reed DATE OF SERVICE: October 23, 2023 TIME: 4:27 PM PATIENT IDENTITY VERIFICATION COMPLETED USING TWO (2) IDENTIFIERS: Name and Date of confirmed by patient verbally. FALL SCREENING: Has the patient had 2 falls in the last year or 1 fall with injury or currently using an Ambulatory Assistive Device (Walker, Cane, Wheelchair, Crutches, etc.)? No PATIENT GENDER DATA: Female. status: : No status: NO. PATIENT RELEVANT IMPLANT DATA REVIEWED: Not Applicable RADIOLOGY DEPARTMENT: Ultrasound PERIPHERAL IV DATA: Not applicable SIGNED BY: Gali Cartagena RDMS October 23, 2023 4:27 PM documented in this encounter [facility] 10-23-2023 History of Presen t illness Narrative Radiology Service Progress Note PATIENT NAME: Nevin Reed DATE OF SERVICE: October 23, 2023 TIME: 2:07 PM PATIENT IDENTITY VERIFICATION COMPLETED USING TWO (2) IDENTIFIERS: Name and Date of confirmed by patient verbally. FALL SCREENING: Has the patient had 2 falls in the last year or 1 fall with injury or currently using an Ambulatory Assistive Device (Walker, Cane, Wheelchair, Crutches, etc.)? No PATIENT GENDER DATA: Female. status: : No status: NO. PATIENT RELEVANT IMPLANT DATA REVIEWED: Not Applicable RADIOLOGY DEPARTMENT: Mammography PERIPHERAL IV DATA: Not applicable SIGNED BY: Gregory Ocasio October 23, 2023 2:07 PM documented in this encounter [facility] 10-08-2023 Miscellaneous Notes October 08, 2023 PID: [id number] Nevin Reed [address] [phone] Dear Ms. Reed, Your recent breast imaging exam on 10/05/2023 showed a possible finding that requires additional imaging studies for a complete evaluation. Most such findings are probably benign (not cancer). Your mammogram demonstrates that you have dense breast tissue, which could hide abnormalities. Dense breast tissue, in and of itself, is a relatively common condition. Therefore, this information is not provided to cause undue concern; rather, it is to raise your awareness and promote discussion with your health care provider regarding the presence of dense breast tissue in addition to other risk factors. If you have a healthcare provider who ordered/prescribed your screening mammogram: Please call [phone] or [phone]: [phone] to schedule an appointment for your additional imaging (if you have not already done so). If you DO NOT have a healthcare provider (ie you did not have an order/prescription for your screening mammogram): Please call to schedule an appointment for your additional imaging (if you have not already done so). You must have an order/prescription from your physician when calling to schedule your appointment. If your order/prescription is not electronic, you must bring the hard copy with you on the day of your exam to avoid delays. Your imaging studies and reports are kept on file at [facility] as part of your permanent medical record, and are available for your continuing care. Thank you for allowing us to help in meeting your health care needs. Sincerely, Dr. Holt Interpreting Radiologist [facility] (Additional imaging) documented in this encounter [facility] 10-05-2023 Note HNO ID: [id number] Author: Nereida Iverson Mammo Tech Service: ? Author Type: Roller Printing Supervisor Type: Progress Notes Filed: 10/05/2023 3:25 PM Note Text: Radiology Service Progress Note PATIENT NAME: Nevin Reed DATE OF SERVICE: October 05, 2023 TIME: 2:20 PM PATIENT IDENTITY VERIFICATION COMPLETED USING TWO (2) IDENTIFIERS: Name and Date of confirmed by patient verbally. FALL SCREENING: Has the patient had 2 falls in the last year or 1 fall with injury or currently using an Ambulatory Assistive Device (Walker, Cane, Wheelchair, Crutches, etc.)? No PATIENT GENDER DATA: Female. status: : No status: NO. PATIENT RELEVANT IMPLANT DATA REVIEWED: Not Applicable RADIOLOGY DEPARTMENT: Mammography PERIPHERAL IV DATA: Not applicable SIGNED BY: Gregory Thompson October 05, 2023 2:[address] [facility] 10-05-2023 History of Presen t illness Narrative Radiology Service Progress Note PATIENT NAME: Nevin Reed DATE OF SERVICE: October 05, 2023 TIME: 2:20 PM PATIENT IDENTITY VERIFICATION COMPLETED USING TWO (2) IDENTIFIERS: Name and Date of confirmed by patient verbally. FALL SCREENING: Has the patient had 2 falls in the last year or 1 fall with injury or currently using an Ambulatory Assistive Device (Walker, Cane, Wheelchair, Crutches, etc.)? No PATIENT GENDER DATA: Female. status: : No status: NO. PATIENT RELEVANT IMPLANT DATA REVIEWED: Not Applicable RADIOLOGY DEPARTMENT: Mammography PERIPHERAL IV DATA: Not applicable SIGNED BY: Nereida Iverson [employer] October 05, 2023 2:20 PM documented in this encounter [facility] 09-20-2023 Note HNO ID: [id number] Author: Ivon Glaser APRN.TURN MACHINE OPERATOR Service: ? Author Type: Nurse Practitioner Type: Progress Notes Filed: 09/20/2023 3:37 PM Note Text: Screen Cutter And Trimmer offered: Patient declinesJonathan Rooney is a 43 year old who presents for an annual gynecologic exam without complaints. Menses: cycles every 28-30 days and 5 days of flow. Contraception: tubal sterilization HPV vaccine: No Last Pap: 08/19/2018 normal HPV: 08/13/2018 negative History of abnormal pap: Yes, normal after retesting. No colposcopies Last mammogram: 2020 abnormal, grouped calcifications right breast Abnormal mammogram: 2017 dilated duct left breast Sexually active: Yes History of STDS: None Patient concerns for STD exposure: No. 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: 07/16/2023, Having periods Age at Menarche: Age at First : Age at Menopause: Lacquer Dipping Machine Operator History Comments: Sexual Activity: Yes; Male Contraception: Tubal Ligation PAST MEDICAL HISTORY Diagnosis Date Hypoglycemia Kidney stones 2007 PAST SURGICAL HISTORY Procedure Laterality Date DILATION AND CURETTAGE DXAND/THER NONOBSTETRIC 2008 SAB PAST SURGICAL HISTORY OF 2012 wisdom teeth ext TONSILLECTOMY PRIMARY/SECONDARY Tonsillectomy TUBAL LIGATION HX 03/22/2017 LAPAROSCOPIC LIGATION TUBAL FILSHIE CLIPS FAMILY HISTORY Problem Relation Age of Onset other (arthiritis) Father other (heart murmer) Brother Cancer Maternal Grandfather Cancer Paternal Grandfather lung Cervical Cancer Other paternal cousin Asthma Son SOCIAL HISTORY Social History Tobacco Use Smoking status: Former Packs/day: .5 Types: Cigarettes Quit date: 07/20/2009 Years since quittin.1 Smokeless tobacco: Never Vaping Use Vaping Use: Never used Substance Use Topics Alcohol use: Yes Comment: Seldom, NOT WHILE Drug use: No REVIEW OF SYSTEMS Abdomen: No abdominal pain, nausea, vomiting, diarrhea, or constipation. No bloating, early satiety, indigestion, or increased flatulence. Bladder: No dysuria, gross hematuria, urinary frequency, urinary urgency, or incontinence. Breast: No breast lumps, nipple d/c, overlying skin changes, redness or skin retraction. Allergies and current medication updated:Yes EXAM: BP 98/60 Ht 5' 4 (1.63m) Wt 122 lb (55.3kg) LMP 09/10/2023 BMI 20.93 kg/(m2). GENERAL: pleasant, female in no apparent distress HEENT: Normocephalic, atraumatic, mucus membranes moist, and no lesions NECK: Supple, full range of motion, no adenopathy, and thyroid normal DERMATOLOGY: Normal, without lesions, non-icteric, and non-hirsute BREAST: soft, non-tender, symmetric, no dominant mass, normal nipple-areolar complex, no lymphadenopathy, and no nipple discharge CHEST: Normal inspiratory effort ABDOMEN: soft, non-tender, and no masses PELVIC: external genitalia normal, normal Bartholin's glands, urethra, [place]'s glands, no vulvar lesions, no cervical lesions, good vaginal support, physiologic discharge present, normal appearing perineal body and perianal region BIMANUAL: uterus normal size, shape and consistency, no adnexal masses, and non-tender RECTOVAGINAL: deferred. NEURO: alert and oriented x3,exam grossly non-focal EXTREMITIES: normal ASSESSMENT/PLAN: 1) Health maintenance: Pap done with HPV. Mammogram ordered. Nutrition, exercise and routine health maintenance exams reviewed. 2) Contraception: tubal sterilization. Contraceptive options reviewed and information provided. 3) STD screening: Declined STD check. 4) Follow up one year or sooner as needed Ivon Glaser APRN.STEPHEN [facility] 08-09-2023 Note HNO ID: [id number] Author: Ivon Glaser APRN.STEPHEN Service: ? Author Type: Nurse Practitioner Type: Progress Notes Filed: 08/09/2023 9:22 AM Note Text: Screen Cutter And Trimmer offered: Patient declines. Nevin Reed is a 43 year old female who presents for vaginal pruritis and discomfort, white thick discharge for 2 week(s). 2 days of Monistat 3 two weeks ago which decreased discharge. Boric acid after SI last WE. RepHresh last used 3 days ago. Was in [place] - ocean, River kayaking, pool, very hot and had a lot of sweating. Recurrent BV. Vaginal discharge: scant amount white but thinner after using Monistat. Itching: YES, mild Dyspareunia: No Fever/chills: No Abdominal pain: Yes, intermittent long-term bloating and pain. Unsure if IBS or related to vaginal issues. Bladder: Negative for dysuria or frequency Bowel: IBS-C. Controlled with Plexxus but ran out of subscription. Colonoscopy 4-5 years ago and normal. BM every week or so. Any new sexual partners or concern for STD exposure: No Any history of STDs: None Does your partner have any new complaints: No Are you currently taking any medications to treat vaginitis: No Do you use feminine sprays, douches or deodorants: No Menstrual cycle: cycles every 28 days and 4 days of flow Contraception: tubal sterilization Last pap: 2018, normal Past medical, surgical, social history, medications and allergies reviewed and updated. OBJECTIVE: BP 96/60 Wt 120 lb (54.4kg) LMP 07/16/2023 GENERAL: Well developed, well nourished in no apparent distress ABDOMEN: soft, non-tender, and no masses PELVIC: external genitalia normal, normal Bartholin's glands, urethra, [place]'s glands, no vulvar lesions, no cervical lesions, good vaginal support, Moderated amount thick pale yellow discharge present, normal appearing perineal body and perianal region BIMANUAL: uterus normal size, shape and consistency, no adnexal masses, and non-tender. ASSESSMENT/PLAN: 1. Acute vaginitis - ICD9: 616.10, ICD10: N76.0 (primary diagnosis) - history of recurrent yeast and BV - Follows vulvar hygiene. Recently in [place], spent time in ocean, hours in river water, pool, sweating. Is sexually active. Declines STD testing. - AMY/TRICHOMONAS NAAT - BACTERIAL VAGINOSIS NAAT - Discussed probiotic 2. Constipation, unspecified constipation type - ICD9: 564.00, ICD10: K59.00 - Docusate sodium (Colace) 100 mg twice a day or 200 mg at bedtime Can add senna at bedtime, if needed. If effective, can change to Donna-colace 2 at bedtime. Smooth Move tea as needed. Will notify of results. Follow- up as needed. Ivon Glaser APRN.CNP Medical Decision Making: Problems: Low: Acute, uncomplicated illness or injury Moderate: 1+ chronic illnesses with change Data: Unique test(s) ordered: 3+ Medical Decision Making Level: 4 - Moderate [facility] 08-09-2023 Instructions Ivon Glaser APRN.STEPHEN - 08/09/2023 9:11 AM EDT Docusate sodium (Colace) 100 mg twice a day or 200 mg at bedtime Can add senna at bedtime, if needed. If effective, can change to Donna-colace 2 at bedtime. Smooth Move tea as needed. documented in this encounter [facility] 08-09-2023 History of Presen t illness Narrative Screen Cutter And Trimmer offered: Patient declines. Nevin Reed is a 43 year old female who presents for vaginal pruritis and discomfort, white thick discharge for 2 week(s). 2 days of Monistat 3 two weeks ago which decreased discharge. Boric acid after SI last WE. RepHresh last used 3 days ago. Was in [place] - ocean, River kayaking, pool, very hot and had a lot of sweating. Recurrent BV. Vaginal discharge: scant amount white but thinner after using Monistat. Itching: YES, mild Dyspareunia: No Fever/chills: No Abdominal pain: Yes, intermittent long-term bloating and pain. Unsure if IBS or related to vaginal issues. Bladder: Negative for dysuria or frequency Bowel: IBS-C. Controlled with Plexxus but ran out of subscription. Colonoscopy 4-5 years ago and normal. BM every week or so. Any new sexual partners or concern for STD exposure: No Any history of STDs: None Does your partner have any new complaints: No Are you currently taking any medications to treat vaginitis: No Do you use feminine sprays, douches or deodorants: No Menstrual cycle: cycles every 28 days and 4 days of flow Contraception: tubal sterilization Last pap: 2018, normal Past medical, surgical, social history, medications and allergies reviewed and updated. OBJECTIVE: BP 96/60 Wt 120 lb (54.4kg) LMP 07/16/2023 GENERAL: Well developed, well nourished in no apparent distress ABDOMEN: soft, non-tender, and no masses PELVIC: external genitalia normal, normal Bartholin's glands, urethra, [place]'s glands, no vulvar lesions, no cervical lesions, good vaginal support, Moderated amount thick pale yellow discharge present, normal appearing perineal body and perianal region BIMANUAL: uterus normal size, shape and consistency, no adnexal masses, and non-tender. ASSESSMENT/PLAN: 1. Acute vaginitis - ICD9: 616.10, ICD10: N76.0 (primary diagnosis) - history of recurrent yeast and BV - Follows vulvar hygiene. Recently in [place], spent time in ocean, hours in river water, pool, sweating. Is sexually active. Declines STD testing. - AMY/TRICHOMONAS NAAT - BACTERIAL VAGINOSIS NAAT - Discussed probiotic 2. Constipation, unspecified constipation type - ICD9: 564.00, ICD10: K59.00 - Docusate sodium (Colace) 100 mg twice a day or 200 mg at bedtime Can add senna at bedtime, if needed. If effective, can change to Donna-colace 2 at bedtime. Smooth Move tea as needed. Will notify of results. Follow- up as needed. Ivon Glaser APRN.TURN MACHINE OPERATOR Medical Decision Making: Problems: Low: Acute, uncomplicated illness or injury Moderate: 1+ chronic illnesses with change Data: Unique test(s) ordered: 3+ Medical Decision Making Level: 4 - Moderate documented in this encounter [facility] 06-07-2023 Note HNO ID: [id number] Author: Ivon Glaser APRN.CNP Service: ? Author Type: Nurse Practitioner Type: Progress Notes Filed: 06/07/2023 1:36 PM Note Text: Nevin Reed is a 42 year old female who presents for problem visit discussion regarding taking 2 antibiotics at one time and risk of vaginal yeast infection. HPI:06/02/2023 express care- diagnosed and treated with oral metronidazole and macrobid for BV and UTI. She has some itching which started the same time that she took first dose of antibiotic. No change in discharge. She has had BV x 4 in past 8 months. Amy x 1. She is frustrated that she gets BV every time she has intercourse with her current partner. He does not live close by and so she has intercourse every 1 to 2 weeks. She feels that she is allergic to him. She sometimes takes Florajen women probiotic. She does follow vulvar hygiene guidelines. 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 Operator History Comments: Sexual Activity: Yes; Male Contraception: Tubal Ligation PAST MEDICAL HISTORY Diagnosis Date Hypoglycemia Kidney stones 2007 PAST SURGICAL HISTORY Procedure Laterality Date DILATION AND CURETTAGE DXAND/THER NONOBSTETRIC 2009 SAB PAST SURGICAL HISTORY OF 2012 wisdom teeth ext TONSILLECTOMY PRIMARY/SECONDARY Tonsillectomy TUBAL LIGATION HX 03/22/2017 LAPAROSCOPIC LIGATION TUBAL FILSHIE CLIPS FAMILY HISTORY Problem Relation Age of Onset other (arthiritis) Father other (heart murmer) Brother Cancer Maternal Grandfather Cancer Paternal Grandfather lung Cervical Cancer Other paternal cousin Asthma Son Social History Tobacco Use Smoking status: Former Packs/day: 0.50 Types: Cigarettes Quit date: 07/20/2009 Years since quittin.8 Smokeless tobacco: Never Vaping Use Vaping Use: Never used Substance Use Topics Alcohol use: Yes Comment: Seldom, NOT WHILE Drug use: No Current Outpatient Medications Medication Sig metroNIDAZOLE (FLAGYL) 500 mg tablet Take 1 tablet by mouth twice daily for 7 days. Lactobac no.41/Bifidobact no.7 (PROBIOTIC-10 ORAL) Take by mouth. Plexus nitrofurantoin monohydrate and macrocrystal (MACROBID) 100 mg capsule Take 1 capsule by mouth twice daily for 5 days. fluconazole (DIFLUCAN) 150 mg tablet Take 1 tablet by mouth as directed. Take one tablet on Day 1, 4 and 7. (Patient not taking: Reported on 02/13/2023) L. acidophilus-L. rhamnosus 15 billion cell cap Take 1 capsule by mouth once daily. FLORAJEN WOMEN. If on antibiotic, take at least 1-2 hours before or after antibiotic. KEEP REFRIGERATED (Patient not taking: Reported on 05/23/2023) clotrimazole-betamethasone (LOTRISONE) cream Apply 1 application to affected area twice daily. (Patient not taking: Reported on 02/13/2023) No current facility-administered medications for this visit. Allergies As of Date: 06/07/2023 Allergen Noted Reaction CODEINE 10/01/2008 Rash LATEX 02/13/2023 Rash NICKEL 11/07/2011 Rash Fully Assessed 06/02/2023 REVIEW OF SYSTEMS Allergies and current medication updated:Yes EXAM: BP 104/60 Wt 122 lb (55.3kg) LMP 04/16/2023 GENERAL: pleasant, female in no apparent distress CHEST: Normal inspiratory effort NEURO: alert and oriented x3,exam grossly non-focal ASSESSMENT AND PLAN: ASSESSMENT/PLAN: 1. Urinary tract infection without hematuria, site unspecified - ICD9: 599.0, ICD10: N39.0 (primary diagnosis) -Complete Macrobid 2. BV (bacterial vaginosis) - ICD9: 616.10, 041.9, ICD10: N76.0, B96.89 -Complete oral metronidazole 3. Vagina itching - ICD9: 698.1, ICD10: N89.8 - FLUCONAZOLE 150 MG TABLET Lengthy discussion regarding vaginal pH, BV and yeast including vulvar hygiene instructions and developing BV after sexual intercourse with no condom. Discussed trial of vaginal boric Acid after each coitus since that she is not sure that partner will be agreeable to not using condom. Also discussed RepHresh. Discussed long-term treatment with MetroGel and vaginal boric acid but she would prefer to avoid that if possible. She currently takes Florajen women probiotic some of the time and also takes plexus probiotic which is very expensive. Discussed trying Clairvee probiotic and given ordering information. Discussed beginning Monistat 7 or generic - a applicator full at bedtime every other night or 1/2 applicator every night x 2 weeks as soon as she starts an antibiotic for subsequent yeast infection. All questions answered. Follow-up as needed. Ivon Glaser APRN.CNP Medical Decision Making: Problems: Moderate: 1+ chronic illnesses with change Risk: Moderate: Drug management Medical Decision Making Level: 4 - Moderate [facility] 06-07-2023 Instructions Ivon Glaser APRN.CNP - 06/07/2023 12:49 PM EDT Can try using boric acid after intercourse. Using condoms would help prevent BV. When you start an antibiotic, you can try using Monistat 7 or generic - a applicator full at bedtime every other night or 1/2 applicator every night x 2 weeks. documented in this encounter [facility] 06-07-2023 History of Presen t illness Narrative Nevin Reed is a 42 year old female who presents for problem visit discussion regarding taking 2 antibiotics at one time and risk of vaginal yeast infection. HPI:06/02/2023 express care- diagnosed and treated with oral metronidazole and macrobid for BV and UTI. She has some itching which started the same time that she took first dose of antibiotic. No change in discharge. She has had BV x 4 in past 8 months. Amy x 1. She is frustrated that she gets BV every time she has intercourse with her current partner. He does not live close by and so she has intercourse every 1 to 2 weeks. She feels that she is allergic to him. She sometimes takes Florajen women probiotic. She does follow vulvar hygiene guidelines. 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 Operator History Comments: Sexual Activity: Yes; Male Contraception: Tubal Ligation PAST MEDICAL HISTORY Diagnosis Date Hypoglycemia Kidney stones 2007 PAST SURGICAL HISTORY Procedure Laterality Date DILATION & CURETTAGE DX&/THER NONOBSTETRIC 2009 SAB PAST SURGICAL HISTORY OF 2012 wisdom teeth ext TONSILLECTOMY PRIMARY/SECONDARY <AGE 13 Tonsillectomy TUBAL LIGATION HX 03/22/2017 LAPAROSCOPIC LIGATION TUBAL FILSHIE CLIPS FAMILY HISTORY Problem Relation Age of Onset other (arthiritis) Father other (heart murmer) Brother Cancer Maternal Grandfather Cancer Paternal Grandfather lung Cervical Cancer Other paternal cousin Asthma Son Social History Tobacco Use Smoking status: Former Packs/day: 0.50 Types: Cigarettes Quit date: 07/20/2009 Years since quittin.8 Smokeless tobacco: Never Vaping Use Vaping Use: Never used Substance Use Topics Alcohol use: Yes Comment: Seldom, NOT WHILE Drug use: No Current Outpatient Medications Medication Sig metroNIDAZOLE (FLAGYL) 500 mg tablet Take 1 tablet by mouth twice daily for 7 days. Lactobac no.41/Bifidobact no.7 (PROBIOTIC-10 ORAL) Take by mouth. Plexus nitrofurantoin monohydrate and macrocrystal (MACROBID) 100 mg capsule Take 1 capsule by mouth twice daily for 5 days. fluconazole (DIFLUCAN) 150 mg tablet Take 1 tablet by mouth as directed. Take one tablet on Day 1, 4 and 7. (Patient not taking: Reported on 02/13/2023) L. acidophilus-L. rhamnosus 15 billion cell cap Take 1 capsule by mouth once daily. FLORAJEN WOMEN. If on antibiotic, take at least 1-2 hours before or after antibiotic. KEEP REFRIGERATED (Patient not taking: Reported on 05/23/2023) clotrimazole-betamethasone (LOTRISONE) cream Apply 1 application to affected area twice daily. (Patient not taking: Reported on 02/13/2023) No current facility-administered medications for this visit. Allergies As of Date: 06/07/2023 Allergen Noted Reaction CODEINE 10/01/2008 Rash LATEX 02/13/2023 Rash NICKEL 11/07/2011 Rash Fully Assessed 06/02/2023 REVIEW OF SYSTEMS Allergies and current medication updated:Yes EXAM: BP 104/60 Wt 122 lb (55.3kg) LMP 04/16/2023 GENERAL: pleasant, female in no apparent distress CHEST: Normal inspiratory effort NEURO: alert and oriented x3,exam grossly non-focal ASSESSMENT AND PLAN: ASSESSMENT/PLAN: 1. Urinary tract infection without hematuria, site unspecified - ICD9: 599.0, ICD10: N39.0 (primary diagnosis) -Complete Macrobid 2. BV (bacterial vaginosis) - ICD9: 616.10, 041.9, ICD10: N76.0, B96.89 -Complete oral metronidazole 3. Vagina itching - ICD9: 698.1, ICD10: N89.8 - FLUCONAZOLE 150 MG TABLET Lengthy discussion regarding vaginal pH, BV and yeast including vulvar hygiene instructions and developing BV after sexual intercourse with no condom. Discussed trial of vaginal boric Acid after each coitus since that she is not sure that partner will be agreeable to not using condom. Also discussed RepHresh. Discussed long-term treatment with MetroGel and vaginal boric acid but she would prefer to avoid that if possible. She currently takes Florajen women probiotic some of the time and also takes plexus probiotic which is very expensive. Discussed trying Clairvee probiotic and given ordering information. Discussed beginning Monistat 7 or generic - a applicator full at bedtime every other night or 1/2 applicator every night x 2 weeks as soon as she starts an antibiotic for subsequent yeast infection. All questions answered. Follow-up as needed. Ivon Glaser APRN.STEPHEN Medical Decision Making: Problems: Moderate: 1+ chronic illnesses with change Risk: Moderate: Drug management Medical Decision Making Level: 4 - Moderate documented in this encounter [facility] 06-06-2023 Miscellaneous Notes Would start vaginal probiotic if not already on one. AG can give diflucan if needed tomorrow when she sees her Please see message below and further advise. Micaela Espitia LPN Pt was seen in [facility]. They diagnosed her with UTI and bacterial infection. She is following up with Ivon tomorrow to go over some concerns she has. But, also wanting to ask if Dr. Torres has any insight on her taking both antibiotics they gave her. She is worried about getting a yeast infection. Please advise documented in this encounter [facility] 06-03-2023 Miscellaneous Notes Patient notified. Verbalized understanding. Please call patient let her know she was positive for bacterial vaginosis. Flagyl sent to pharmacy. Do not drink alcohol while taking this medication. She may continue Macrobid as well. documented in this encounter [facility] 06-02-2023 Note HNO ID: [id number] Author: JANIE Al Service: ? Author Type: Physician Whipper Type: Progress Notes Filed: 06/02/2023 9:13 AM Note Text: This note was created using [employer]. Subjective Nevin Reed is a 42 year old female. HPI 42-year-old female presents for UTI symptoms. Patient states she is having burning with urination, frequency, urgency for the past 2 days. States she has had a little bit of stomach upset after eating [place]i a few days ago as well. She denies any abnormal vaginal discharge. She does state that she is prone to bacterial vaginosis and did have sex with her boyfriend that night, so is unsure if that is what is causing her symptoms or not. She has no discharge. She denies any abnormal vaginal bleeding. No concern for history of tubal ligation. No vomiting or diarrhea. No fevers. No back pain or abdominal pain. No other complaints. PAST MEDICAL HISTORY Diagnosis Date Hypoglycemia Kidney stones 2007 PAST SURGICAL HISTORY Procedure Laterality Date DILATION AND CURETTAGE DXAND/THER NONOBSTETRIC 2009 SAB PAST SURGICAL HISTORY OF 2012 wisdom teeth ext TONSILLECTOMY PRIMARY/SECONDARY Tonsillectomy TUBAL LIGATION HX 03/22/2017 LAPAROSCOPIC LIGATION TUBAL FILSHIE CLIPS ALLERGIES Codeine, Latex, and Nickel MEDICATIONS Lactobac no.41/Bifidobact no.7 (PROBIOTIC-10 ORAL) Take by mouth. Plexus nitrofurantoin monohydrate and macrocrystal (MACROBID) 100 mg capsule Take 1 capsule by mouth twice daily for 5 days. fluconazole (DIFLUCAN) 150 mg tablet Take 1 tablet by mouth as directed. Take one tablet on Day 1, 4 and 7. (Patient not taking: Reported on 02/13/2023) L. acidophilus-L. rhamnosus 15 billion cell cap Take 1 capsule by mouth once daily. FLORAJEN WOMEN. If on antibiotic, take at least 1-2 hours before or after antibiotic. KEEP REFRIGERATED (Patient not taking: Reported on 05/23/2023) clotrimazole-betamethasone (LOTRISONE) cream Apply 1 application to affected area twice daily. (Patient not taking: Reported on 02/13/2023) FAMILY HISTORY Problem Relation Age of Onset other (arthiritis) Father other (heart murmer) Brother Cancer Maternal Grandfather Cancer Paternal Grandfather lung Cervical Cancer Other paternal cousin Asthma Son Social History Tobacco Use Smoking status: Former Packs/day: 0.50 Types: Cigarettes Quit date: 07/20/2009 Years since quittin.8 Smokeless tobacco: Never Vaping Use Vaping Use: Never used Substance Use Topics Alcohol use: Yes Comment: Seldom, NOT WHILE Drug use: No Review of Systems Constitutional: Negative for chills and fever. HENT: Negative for congestion, ear pain and sore throat. Respiratory: Negative for cough and shortness of breath. Cardiovascular: Negative for chest pain. Gastrointestinal: Negative for abdominal pain, diarrhea and vomiting. Genitourinary: Positive for dysuria, frequency and urgency. Negative for vaginal bleeding and vaginal discharge. Objective BP 80/52 Pulse 72 Resp 16 Wt 54.9 kg (121 lb) LMP 04/16/2023 SpO2 98% BMI 20.45 kg/m? Physical Exam Vitals and nursing note reviewed. Constitutional: General: She is not in acute distress. Appearance: Normal appearance. She is not toxic-appearing. HENT: Nose: Nose normal. Mouth/Throat: Mouth: Mucous membranes are moist. Eyes: Conjunctiva/sclera: Conjunctivae normal. Cardiovascular: Rate and Rhythm: Normal rate and regular rhythm. Pulmonary: Effort: Pulmonary effort is normal. Breath sounds: Normal breath sounds. Abdominal: General: Abdomen is flat. Palpations: Abdomen is soft. Tenderness: There is no abdominal tenderness. There is no right CVA tenderness or left CVA tenderness. Genitourinary: Comments: Deferred, no symptoms / discharge Skin: General: Skin is warm and dry. Neurological: Mental Status: She is alert. Assessment and Plan ASSESSMENT/PLAN: 1. Pain with urination - ICD9: 788.1, ICD10: R30.9 acute - UA positive for marcy esterase and hematuria - Send urine for culture - Begin treatment with Macrobid 100 mg BID for 5 days - Patient education for prevention given - UA DIP, URINE (POC) - URINE CULTURE -Patient states she is prone to bacterial vaginosis and would like tested for this. No discharge or symptoms at this time. Self swabs obtained. Declines STD testing. - AMY/TRICHOMONAS NAAT - BACTERIAL VAGINOSIS NAAT Diagnosis and treatment plan were discussed and questions were answered to the patient's satisfaction. Pt acknowledged understanding of concepts and follow up plan. Specific signs and symptoms that would indicate the need for higher level of care were discussed in detail warranting prompt ER evaluation. JANIE Al [facility] 06-02-2023 History of Presen t illness Narrative This note was created using [employer]. Subjective Nevin Reed is a 42 year old female. HPI 42-year-old female presents for UTI symptoms. Patient states she is having burning with urination, frequency, urgency for the past 2 days. States she has had a little bit of stomach upset after eating [place]i a few days ago as well. She denies any abnormal vaginal discharge. She does state that she is prone to bacterial vaginosis and did have sex with her boyfriend that night, so is unsure if that is what is causing her symptoms or not. She has no discharge. She denies any abnormal vaginal bleeding. No concern for history of tubal ligation. No vomiting or diarrhea. No fevers. No back pain or abdominal pain. No other complaints. PAST MEDICAL HISTORY Diagnosis Date Hypoglycemia Kidney stones 2007 PAST SURGICAL HISTORY Procedure Laterality Date DILATION & CURETTAGE DX&/THER NONOBSTETRIC 2009 SAB PAST SURGICAL HISTORY OF 2011 wisdom teeth ext TONSILLECTOMY PRIMARY/SECONDARY <AGE 13 Tonsillectomy TUBAL LIGATION HX 03/22/2017 LAPAROSCOPIC LIGATION TUBAL FILSHIE CLIPS ALLERGIES Codeine, Latex, and Nickel MEDICATIONS Lactobac no.41/Bifidobact no.7 (PROBIOTIC-10 ORAL) Take by mouth. Plexus nitrofurantoin monohydrate and macrocrystal (MACROBID) 100 mg capsule Take 1 capsule by mouth twice daily for 5 days. fluconazole (DIFLUCAN) 150 mg tablet Take 1 tablet by mouth as directed. Take one tablet on Day 1, 4 and 7. (Patient not taking: Reported on 02/13/2023) L. acidophilus-L. rhamnosus 15 billion cell cap Take 1 capsule by mouth once daily. FLORAJEN WOMEN. If on antibiotic, take at least 1-2 hours before or after antibiotic. KEEP REFRIGERATED (Patient not taking: Reported on 05/23/2023) clotrimazole-betamethasone (LOTRISONE) cream Apply 1 application to affected area twice daily. (Patient not taking: Reported on 02/13/2023) FAMILY HISTORY Problem Relation Age of Onset other (arthiritis) Father other (heart murmer) Brother Cancer Maternal Grandfather Cancer Paternal Grandfather lung Cervical Cancer Other paternal cousin Asthma Son Social History Tobacco Use Smoking status: Former Packs/day: 0.50 Types: Cigarettes Quit date: 07/20/2009 Years since quittin.8 Smokeless tobacco: Never Vaping Use Vaping Use: Never used Substance Use Topics Alcohol use: Yes Comment: Seldom, NOT WHILE Drug use: No Review of Systems Constitutional: Negative for chills and fever. HENT: Negative for congestion, ear pain and sore throat. Respiratory: Negative for cough and shortness of breath. Cardiovascular: Negative for chest pain. Gastrointestinal: Negative for abdominal pain, diarrhea and vomiting. Genitourinary: Positive for dysuria, frequency and urgency. Negative for vaginal bleeding and vaginal discharge. Objective BP 80/52 Pulse 72 Resp 16 Wt 54.9 kg (121 lb) LMP 04/16/2023 SpO2 98% BMI 20.45 kg/m Physical Exam Vitals and nursing note reviewed. Constitutional: General: She is not in acute distress. Appearance: Normal appearance. She is not toxic-appearing. HENT: Nose: Nose normal. Mouth/Throat: Mouth: Mucous membranes are moist. Eyes: Conjunctiva/sclera: Conjunctivae normal. Cardiovascular: Rate and Rhythm: Normal rate and regular rhythm. Pulmonary: Effort: Pulmonary effort is normal. Breath sounds: Normal breath sounds. Abdominal: General: Abdomen is flat. Palpations: Abdomen is soft. Tenderness: There is no abdominal tenderness. There is no right CVA tenderness or left CVA tenderness. Genitourinary: Comments: Deferred, no symptoms / discharge Skin: General: Skin is warm and dry. Neurological: Mental Status: She is alert. Assessment and Plan ASSESSMENT/PLAN: 1. Pain with urination - ICD9: 788.1, ICD10: R30.9 acute - UA positive for marcy esterase and hematuria - Send urine for culture - Begin treatment with Macrobid 100 mg BID for 5 days - Patient education for prevention given - UA DIP, URINE (POC) - URINE CULTURE -Patient states she is prone to bacterial vaginosis and would like tested for this. No discharge or symptoms at this time. Self swabs obtained. Declines STD testing. - AMY/TRICHOMONAS NAAT - BACTERIAL VAGINOSIS NAAT Diagnosis and treatment plan were discussed and questions were answered to the patient's satisfaction. Pt acknowledged understanding of concepts and follow up plan. Specific signs and symptoms that would indicate the need for higher level of care were discussed in detail warranting prompt ER evaluation. JANIE Al documented in this encounter [facility] 05-23-2023 Note HNO ID: [id number] Author: Katherine Galindo APRN.TURN MACHINE OPERATOR Service: ? Author Type: Nurse Practitioner Type: Progress Notes Filed: 05/23/2023 10:32 AM Note Text: Subjective The history is provided by the patient. No educational sign language interpreter was used. HPI Nevin Reed is a 42 year old female who presents today for CC of vaginal discharge for the past 10 days. She denies any new sexual partners, declines any std testing. BP 122/66 Pulse 66 Temp 36.7 ?C (98 ?F) Resp 16 Wt 55.3 kg (122 lb) LMP 04/16/2023 SpO2 100% BMI 20.62 kg/m? Social History Tobacco Use Smoking status: Former Packs/day: 0.50 Types: Cigarettes Quit date: 07/20/2009 Years since quittin.8 Smokeless tobacco: Never Vaping Use Vaping Use: Never used Substance Use Topics Alcohol use: Yes Comment: Seldom, NOT WHILE Drug use: No PAST MEDICAL HISTORY Diagnosis Date Hypoglycemia Kidney stones 2007 I have confirmed and edited as necessary, the [facility] Review of Systems Constitutional: Negative for chills and fever. Gastrointestinal: Negative for abdominal pain. Genitourinary: Negative for dysuria, flank pain, frequency, hematuria and urgency. Vaginal discharge Objective Physical Exam Vitals and nursing note reviewed. Exam conducted with a ict sales representative present. Constitutional: Appearance: Normal appearance. Abdominal: General: Bowel sounds are normal. There is no abdominal bruit. Palpations: Abdomen is not rigid. There is no mass or pulsatile mass. Tenderness: There is no abdominal tenderness. There is no guarding or rebound. Negative signs include Bacon's sign and McBurney's sign. Genitourinary: General: Normal vulva. Labia: Right: No rash, tenderness or lesion. Left: No rash, tenderness or lesion. Vagina: Vaginal discharge present. No erythema. Cervix: Discharge present. No erythema. Neurological: Mental Status: She is alert and oriented to person, place, and time. Psychiatric: Mood and Affect: Affect normal. ASSESSMENT/PLAN: 1. Acute vaginitis - ICD9: 616.10, ICD10: N76.0 Will send vaginal cultures, and notify if positive and treatment needed Follow up with PASTRY COOK HELPER - BACTERIAL VAGINOSIS NAAT - AMY/TRICHOMONAS NAAT Katherine Galindo APRN.CNP [facility] 05-23-2023 Instructions Katherine Galindo APRN.CNP - 05/23/2023 10:03 AM EDT Will send cultures and notify of results and treatment as indicated Would recommend appointment with PASTRY COOK HELPER documented in this encounter [facility] 05-23-2023 History of Presen t illness Narrative Subjective The history is provided by the patient. No educational sign language interpreter was used. HPI Nevin Reed is a 42 year old female who presents today for CC of vaginal discharge for the past 10 days. She denies any new sexual partners, declines any std testing. BP 122/66 Pulse 66 Temp 36.7 C (98 F) Resp 16 Wt 55.3 kg (122 lb) LMP 04/16/2023 SpO2 100% BMI 20.62 kg/m Social History Tobacco Use Smoking status: Former Packs/day: 0.50 Types: Cigarettes Quit date: 07/20/2009 Years since quittin.8 Smokeless tobacco: Never Vaping Use Vaping Use: Never used Substance Use Topics Alcohol use: Yes Comment: Seldom, NOT WHILE Drug use: No PAST MEDICAL HISTORY Diagnosis Date Hypoglycemia Kidney stones 2007 I have confirmed and edited as necessary, the [facility] Review of Systems Constitutional: Negative for chills and fever. Gastrointestinal: Negative for abdominal pain. Genitourinary: Negative for dysuria, flank pain, frequency, hematuria and urgency. Vaginal discharge Objective Physical Exam Vitals and nursing note reviewed. Exam conducted with a ict sales representative present. Constitutional: Appearance: Normal appearance. Abdominal: General: Bowel sounds are normal. There is no abdominal bruit. Palpations: Abdomen is not rigid. There is no mass or pulsatile mass. Tenderness: There is no abdominal tenderness. There is no guarding or rebound. Negative signs include Bacon's sign and McBurney's sign. Genitourinary: General: Normal vulva. Labia: Right: No rash, tenderness or lesion. Left: No rash, tenderness or lesion. Vagina: Vaginal discharge present. No erythema. Cervix: Discharge present. No erythema. Neurological: Mental Status: She is alert and oriented to person, place, and time. Psychiatric: Mood and Affect: Affect normal. ASSESSMENT/PLAN: 1. Acute vaginitis - ICD9: 616.10, ICD10: N76.0 Will send vaginal cultures, and notify if positive and treatment needed Follow up with PASTRY COOK HELPER - BACTERIAL VAGINOSIS NAAT - AMY/TRICHOMONAS NAAT Katherine Galindo APRN.TURN MACHINE OPERATOR documented in this encounter [facility] 04-26-2023 Note HNO ID: [id number] Author: Keya Hopkins APRN.CNP Service: ? Author Type: Nurse Practitioner Type: Progress Notes Filed: 04/26/2023 5:16 PM Note Text: Subjective Vaginal Discharge Pertinent negatives include no fever, no abdominal pain, no dysuria and no frequency. Nevin Reed is a 42 year old female who presents with vaginal discomfort and discharge for the past 2 days. She has had BV in the past and states symptoms are similar. She is traveling out of [facility] tomorrow and would like to be treated. She denies dysuria or frequency. She denies concern for STD. LMP was 04/16/23. Review of Systems Constitutional: Negative for chills and fever. Gastrointestinal: Negative for abdominal pain. Genitourinary: Negative for dysuria, flank pain, frequency, hematuria and urgency. See HPI Musculoskeletal: Negative for back pain. BP 110/68 Pulse 83 Temp 36.8 ?C (98.3 ?F) (Tympanic) Resp 16 Wt 54.9 kg (121 lb) LMP 04/16/2023 SpO2 97% BMI 20.45 kg/m? PAST MEDICAL HISTORY Diagnosis Date Hypoglycemia Kidney stones 2007 PAST SURGICAL HISTORY Procedure Laterality Date DILATION AND CURETTAGE DXAND/THER NONOBSTETRIC 2008 SAB PAST SURGICAL HISTORY OF 2011 wisdom teeth ext TONSILLECTOMY PRIMARY/SECONDARY Tonsillectomy TUBAL LIGATION HX 03/22/2017 LAPAROSCOPIC LIGATION TUBAL FILSHIE CLIPS ALLERGIES Codeine, Latex, and Nickel MEDICATIONS L. acidophilus-L. rhamnosus 15 billion cell cap Take 1 capsule by mouth once daily. FLORAJEN WOMEN. If on antibiotic, take at least 1-2 hours before or after antibiotic. KEEP REFRIGERATED metroNIDAZOLE (FLAGYL) 500 mg tablet Take 1 tablet by mouth twice daily for 7 days. fluconazole (DIFLUCAN) 150 mg tablet Take 1 tablet by mouth as directed. Take one tablet on Day 1, 4 and 7. (Patient not taking: No sig reported) clotrimazole-betamethasone (LOTRISONE) cream Apply 1 application to affected area twice daily. (Patient not taking: No sig reported) FAMILY HISTORY Problem Relation Age of Onset other (arthiritis) Father other (heart murmer) Brother Cancer Maternal Grandfather Cancer Paternal Grandfather lung Cervical Cancer Other paternal cousin Asthma Son Social History Tobacco Use Smoking status: Former Packs/day: 0.50 Types: Cigarettes Quit date: 07/20/2009 Years since quittin.7 Smokeless tobacco: Never Vaping Use Vaping Use: Never used Substance Use Topics Alcohol use: Yes Comment: Seldom, NOT WHILE Drug use: No Objective Physical Exam Vitals and nursing note reviewed. Exam conducted with a ict sales representative present. Constitutional: Appearance: Normal appearance. Genitourinary: Exam position: Lithotomy position. Vagina: Vaginal discharge present. No tenderness. Cervix: Discharge present. Skin: General: Skin is warm and dry. Findings: No erythema or rash. Neurological: Mental Status: She is alert. ASSESSMENT/PLAN: 1. Pain with urination - ICD9: 788.1, ICD10: R30.9 (primary diagnosis) acute - UA DIP, URINE (POC)-normal in office 2. Vaginal discharge - ICD9: 623.5, ICD10: N89.8 - AMY / TRICHOMONAS AMPLIFICATION - BACTERIAL VAGINOSIS AMPLIFICATION - METRONIDAZOLE 500 MG TABLET - Follow-up with your PCP in 3-5 days if symptoms have not improved or sooner if symptoms worsen - Discussed red flags and need for immediate medical evaluation if any occur. - Discussed supportive care treatment with fluids, rest and analgesia. - Discussed expected course of illness Keya Hopkins APRN.STEPHEN [facility] 04-01-2023 Note HNO ID: [id number] Author: Lanie Nowak APRN.STEPHEN Service: ? Author Type: Nurse Practitioner Type: Progress Notes Filed: 04/01/2023 9:19 AM Note Text: CC: Patient presents with: Sore Throat: X 1 day HPI: Nevin Reed is a 42 year old female who presents to the office with complaint of sore throat for the past day. Symptoms are staying the same. Associated symptoms includes sore throat. Denies fever, nausea, vomiting , and diarrhea. Treatments tried include nothing so far. with no relief of symptoms. Sick contacts: unknown. History of asthma, frequent episodes of bronchitis, chronic bronchitis, bronchiectasis or COPD: No Smoker: No Seasonal/environmental allergies: No The ROS is otherwise negative. The patient's pmh, medications, allergies, and past visits are reviewed. PHYSICAL EXAM: BP 90/70 Pulse 97 Temp 36.6 ?C (97.9 ?F) Resp 16 Wt 55.3 kg (122 lb) LMP 01/30/2023 SpO2 97% BMI 20.62 kg/m? General appearance: alert, cooperative, pleasant, in no acute distress Head: Normocephalic Eyes: EOM's intact, conjunctiva pink and moist, no icterus, sclera white, non-injected Ears: Right ear: External ear/canal- Normal, TM - clear with good landmarks. Left ear: External ear/canal- Normal, TM - clear with good landmarks Oropharynx:moderate erythema, without exudates present Heart: Negative. RRR without obvious murmur, gallop, or rubs. No ectopy. Lungs: clear to auscultation, without rales or wheeze, good air exchange PAST MEDICAL HISTORY Diagnosis Date Hypoglycemia Kidney stones 2007 PAST SURGICAL HISTORY Procedure Laterality Date DILATION AND CURETTAGE DXAND/THER NONOBSTETRIC 2008 SAB PAST SURGICAL HISTORY OF 2011 wisdom teeth ext TONSILLECTOMY PRIMARY/SECONDARY Tonsillectomy TUBAL LIGATION HX 03/22/2017 LAPAROSCOPIC LIGATION TUBAL FILSHIE CLIPS ALLERGIES Codeine, Latex, and Nickel MEDICATIONS L. acidophilus-L. rhamnosus 15 billion cell cap Take 1 capsule by mouth once daily. FLORAJEN WOMEN. If on antibiotic, take at least 1-2 hours before or after antibiotic. KEEP REFRIGERATED fluconazole (DIFLUCAN) 150 mg tablet Take 1 tablet by mouth as directed. Take one tablet on Day 1, 4 and 7. (Patient not taking: No sig reported) clotrimazole-betamethasone (LOTRISONE) cream Apply 1 application to affected area twice daily. (Patient not taking: No sig reported) FAMILY HISTORY Problem Relation Age of Onset other (arthiritis) Father other (heart murmer) Brother Cancer Maternal Grandfather Cancer Paternal Grandfather lung Cervical Cancer Other paternal cousin Asthma Son Social History Tobacco Use Smoking status: Former Packs/day: 0.50 Types: Cigarettes Quit date: 07/20/2009 Years since quittin.7 Smokeless tobacco: Never Vaping Use Vaping Use: Never used Substance Use Topics Alcohol use: Yes Comment: Seldom, NOT WHILE Drug use: No ASSESSMENT/PLAN: 1. Sore throat - ICD9: 462, ICD10: J02.9 - STREP A MOLECULAR (POC) - neg Viral at this time. Potential red flag symptoms discussed with the patient. Reviewed appropriate action plan to take if red flag symptoms occur. Patient agreeable to treatment plan. Lanie Nowak APRN.[facility] 04-01-2023 History of Presen t illness Narrative CC: Patient presents with: Sore Throat: X 1 day HPI: Nevin Reed is a 42 year old female who presents to the office with complaint of sore throat for the past day. Symptoms are staying the same. Associated symptoms includes sore throat. Denies fever, nausea, vomiting , and diarrhea. Treatments tried include nothing so far. with no relief of symptoms. Sick contacts: unknown. History of asthma, frequent episodes of bronchitis, chronic bronchitis, bronchiectasis or COPD: No Smoker: No Seasonal/environmental allergies: No The ROS is otherwise negative. The patient's pmh, medications, allergies, and past visits are reviewed. PHYSICAL EXAM: BP 90/70 Pulse 97 Temp 36.6 C (97.9 F) Resp 16 Wt 55.3 kg (122 lb) LMP 01/30/2023 SpO2 97% BMI 20.62 kg/m General appearance: alert, cooperative, pleasant, in no acute distress Head: Normocephalic Eyes: EOM's intact, conjunctiva pink and moist, no icterus, sclera white, non-injected Ears: Right ear: External ear/canal- Normal, TM - clear with good landmarks. Left ear: External ear/canal- Normal, TM - clear with good landmarks Oropharynx:moderate erythema, without exudates present Heart: Negative. RRR without obvious murmur, gallop, or rubs. No ectopy. Lungs: clear to auscultation, without rales or wheeze, good air exchange PAST MEDICAL HISTORY Diagnosis Date Hypoglycemia Kidney stones 2007 PAST SURGICAL HISTORY Procedure Laterality Date DILATION & CURETTAGE DX&/THER NONOBSTETRIC 2009 SAB PAST SURGICAL HISTORY OF 2011 wisdom teeth ext TONSILLECTOMY PRIMARY/SECONDARY <AGE 13 Tonsillectomy TUBAL LIGATION HX 03/22/2017 LAPAROSCOPIC LIGATION TUBAL FILSHIE CLIPS ALLERGIES Codeine, Latex, and Nickel MEDICATIONS L. acidophilus-L. rhamnosus 15 billion cell cap Take 1 capsule by mouth once daily. FLORAJEN WOMEN. If on antibiotic, take at least 1-2 hours before or after antibiotic. KEEP REFRIGERATED fluconazole (DIFLUCAN) 150 mg tablet Take 1 tablet by mouth as directed. Take one tablet on Day 1, 4 and 7. (Patient not taking: No sig reported) clotrimazole-betamethasone (LOTRISONE) cream Apply 1 application to affected area twice daily. (Patient not taking: No sig reported) FAMILY HISTORY Problem Relation Age of Onset other (arthiritis) Father other (heart murmer) Brother Cancer Maternal Grandfather Cancer Paternal Grandfather lung Cervical Cancer Other paternal cousin Asthma Son Social History Tobacco Use Smoking status: Former Packs/day: 0.50 Types: Cigarettes Quit date: 07/20/2009 Years since quittin.7 Smokeless tobacco: Never Vaping Use Vaping Use: Never used Substance Use Topics Alcohol use: Yes Comment: Seldom, NOT WHILE Drug use: No ASSESSMENT/PLAN: 1. Sore throat - ICD9: 462, ICD10: J02.9 - STREP A MOLECULAR (POC) - neg Viral at this time. Potential red flag symptoms discussed with the patient. Reviewed appropriate action plan to take if red flag symptoms occur. Patient agreeable to treatment plan. Lanie Nowak APRN.TURN MACHINE OPERATOR documented in this encounter [facility] 03-20-2023 Note HNO ID: [id number] Author: RT Ramiro(R) Service: Nuclear Medicine Author Type: Technologist Type: Progress Notes Filed: 03/20/2023 2:48 PM Note Text: Radiology Service Progress Note PATIENT NAME: Nevin Reed DATE OF SERVICE: March 20, 2023 TIME: 2:40 PM PATIENT IDENTITY VERIFICATION COMPLETED USING TWO (2) IDENTIFIERS: Name and Date of confirmed by patient verbally. FALL SCREENING: Has the patient had 2 falls in the last year or 1 fall with injury or currently using an Ambulatory Assistive Device (Walker, Cane, Wheelchair, Crutches, etc.)? No PATIENT GENDER DATA: Female. status: : No status: NO. PATIENT RELEVANT IMPLANT DATA REVIEWED: Not Applicable RADIOLOGY DEPARTMENT: General X-ray: Exam(s) Completed: Upper Extremity X-Ray(s): Hand, left PERIPHERAL IV DATA: Not applicable SIGNED BY: RT Ramiro(R) March 20, 2023 2:[address] [facility] 03-20-2023 Note HNO ID: [id number] Author: Lanie Nowak APRN.TURN MACHINE OPERATOR Service: ? Author Type: Nurse Practitioner Type: Progress Notes Filed: 03/20/2023 3:19 PM Note Text: Subjective Patient came in with complaints of left knuckle and finger pain of the first 2 fingers. Patient says a PNO keyboard lid came down on her hand. Patient says this happened several days ago. Patient denies any loss of feeling in her fingers. Patient does note some swelling and some tingling at times. The history is provided by the patient. No educational sign language interpreter was used. Review of Systems Constitutional: Negative. Skin: Negative. Objective Physical Exam Constitutional: Appearance: Normal appearance. Pulmonary: Effort: Pulmonary effort is normal. Musculoskeletal: Hands: Comments: Patient does have mild swelling in the area marked above and is tender upon palpation no deformities noted. Neurological: Mental Status: She is alert. PAST MEDICAL HISTORY Diagnosis Date Hypoglycemia Kidney stones 2007 PAST SURGICAL HISTORY Procedure Laterality Date DILATION AND CURETTAGE DXAND/THER NONOBSTETRIC 2009 SAB PAST SURGICAL HISTORY OF 2011 wisdom teeth ext TONSILLECTOMY PRIMARY/SECONDARY Tonsillectomy TUBAL LIGATION HX 03/22/2017 LAPAROSCOPIC LIGATION TUBAL FILSHIE CLIPS ALLERGIES Codeine, Latex, and Nickel MEDICATIONS L. acidophilus-L. rhamnosus 15 billion cell cap Take 1 capsule by mouth once daily. FLORAJEN WOMEN. If on antibiotic, take at least 1-2 hours before or after antibiotic. KEEP REFRIGERATED fluconazole (DIFLUCAN) 150 mg tablet Take 1 tablet by mouth as directed. Take one tablet on Day 1, 4 and 7. (Patient not taking: Reported on 02/13/2023) clotrimazole-betamethasone (LOTRISONE) cream Apply 1 application to affected area twice daily. (Patient not taking: Reported on 02/13/2023) FAMILY HISTORY Problem Relation Age of Onset other (arthiritis) Father other (heart murmer) Brother Cancer Maternal Grandfather Cancer Paternal Grandfather lung Cervical Cancer Other paternal cousin Asthma Son Social History Tobacco Use Smoking status: Former Packs/day: 0.50 Types: Cigarettes Quit date: 07/20/2009 Years since quittin.6 Smokeless tobacco: Never Vaping Use Vaping Use: Never used Substance Use Topics Alcohol use: Yes Comment: Seldom, NOT WHILE Drug use: No ASSESSMENT/PLAN: 1. Pain - ICD9: 780.96, ICD10: R52 - XR HAND GENERAL 3V PA/LAT/OBL LEFT * * * * Physician Interpretation * * * * EXAM TITLE: XR HAND 3V PA/LAT/OBL LT EXAM DATE/TIME: 03/20/2023 2:48 PM COMPARISON: None. CLINICAL INDICATION/HISTORY: Hand pain. TECHNIQUE: PA, lateral and oblique views of the left hand are presented. FINDINGS: No acute fractures or subluxations are noted. Mild cortical hyperostosis involving a few distal phalanxes may represent melorheostosis. The joint spaces are well preserved. The mineralization of the bones is normal. There is no significant soft tissue swelling. IMPRESSION IMPRESSION: No acute radiographic abnormalities seen in the left hand. Vp Compliance: GENE Transcribe Date/Time: Mar 20 2023 2:48P Dictated by : LILLY MCKEON MD Structured to rest ice and elevate alternate Tylenol Motrin and follow-up if signs and symptoms seem to getting worse not better. Patient was okay with this care plan. Lanie Nowak APRN.[facility] 03-20-2023 History of Presen t illness Narrative Images from the original note were not included. Subjective Patient came in with complaints of left knuckle and finger pain of the first 2 fingers. Patient says a PNO keyboard lid came down on her hand. Patient says this happened several days ago. Patient denies any loss of feeling in her fingers. Patient does note some swelling and some tingling at times. The history is provided by the patient. No educational sign language interpreter was used. Review of Systems Constitutional: Negative. Skin: Negative. Objective Physical Exam Constitutional: Appearance: Normal appearance. Pulmonary: Effort: Pulmonary effort is normal. Musculoskeletal: Hands: Comments: Patient does have mild swelling in the area marked above and is tender upon palpation no deformities noted. Neurological: Mental Status: She is alert. PAST MEDICAL HISTORY Diagnosis Date Hypoglycemia Kidney stones 2007 PAST SURGICAL HISTORY Procedure Laterality Date DILATION & CURETTAGE DX&/THER NONOBSTETRIC 2009 SAB PAST SURGICAL HISTORY OF 2012 wisdom teeth ext TONSILLECTOMY PRIMARY/SECONDARY <AGE 13 Tonsillectomy TUBAL LIGATION HX 03/22/2017 LAPAROSCOPIC LIGATION TUBAL FILSHIE CLIPS ALLERGIES Codeine, Latex, and Nickel MEDICATIONS L. acidophilus-L. rhamnosus 15 billion cell cap Take 1 capsule by mouth once daily. FLORAJEN WOMEN. If on antibiotic, take at least 1-2 hours before or after antibiotic. KEEP REFRIGERATED fluconazole (DIFLUCAN) 150 mg tablet Take 1 tablet by mouth as directed. Take one tablet on Day 1, 4 and 7. (Patient not taking: Reported on 02/13/2023) clotrimazole-betamethasone (LOTRISONE) cream Apply 1 application to affected area twice daily. (Patient not taking: Reported on 02/13/2023) FAMILY HISTORY Problem Relation Age of Onset other (arthiritis) Father other (heart murmer) Brother Cancer Maternal Grandfather Cancer Paternal Grandfather lung Cervical Cancer Other paternal cousin Asthma Son Social History Tobacco Use Smoking status: Former Packs/day: 0.50 Types: Cigarettes Quit date: 07/20/2009 Years since quittin.6 Smokeless tobacco: Never Vaping Use Vaping Use: Never used Substance Use Topics Alcohol use: Yes Comment: Seldom, NOT WHILE Drug use: No ASSESSMENT/PLAN: 1. Pain - ICD9: 780.96, ICD10: R52 - XR HAND GENERAL 3V PA/LAT/OBL LEFT * * * * Physician Interpretation * * * * EXAM TITLE: XR HAND 3V PA/LAT/OBL LT EXAM DATE/TIME: 03/20/2023 2:48 PM COMPARISON: None. CLINICAL INDICATION/HISTORY: Hand pain. TECHNIQUE: PA, lateral and oblique views of the left hand are presented. FINDINGS: No acute fractures or subluxations are noted. Mild cortical hyperostosis involving a few distal phalanxes may represent melorheostosis. The joint spaces are well preserved. The mineralization of the bones is normal. There is no significant soft tissue swelling. IMPRESSION IMPRESSION: No acute radiographic abnormalities seen in the left hand. Vp Compliance: GENE Transcribe Date/Time: Mar 20 2023 2:48P Dictated by : LILLY MCKEON MD Structured to rest ice and elevate alternate Tylenol Motrin and follow-up if signs and symptoms seem to getting worse not better. Patient was okay with this care plan. Lanie Nowak APRN.STEPHEN documented in this encounter [facility] 03-14-2023 Miscellaneous Notes Patient given results and verbalized understanding of instructions given. Brielle Watts Vaginal cultures are negative, negative STD testing. If still having symptoms follow up with PCP Katherine Galindo APRN.STEPHEN documented in this encounter [facility] 03-13-2023 Note HNO ID: [id number] Author: Sharee Church PA-C Service: ? Author Type: Physician Whipper Type: Progress Notes Filed: 03/13/2023 2:13 PM Note Text: This note was created using [employer]. Subjective Nevin Reed is a 42 year old female. HPI Presents with a chief complaint of vaginal discharge over the past month. She was seen February 13 and had done some self swabs which were negative for BV, trichomonas and yeast. She states symptoms really have not improved so she came back to be reevaluated. She has had problems with chronic vaginitis and has seen women's health multiple times for this. She has had BV and yeast recurrently. Denies any abdominal pain. No urinary complaints. Denies chance of , has had a tubal ligation. She is sexually active with 1 partner. States she sees him 1-2 times a month, they live farther away from each other. Does not use protection. Review of Systems Constitutional: Negative. HENT: Negative. Respiratory: Negative. Cardiovascular: Negative. Gastrointestinal: Negative. Genitourinary: Positive for vaginal discharge and vaginal pain. Negative for dysuria, frequency, hematuria, urgency and vaginal bleeding. Musculoskeletal: Negative. All other systems reviewed and are negative. PAST MEDICAL HISTORY Diagnosis Date Hypoglycemia Kidney stones 2007 Current Outpatient Medications Medication Sig Dispense Refill L. acidophilus-L. rhamnosus 15 billion cell cap Take 1 capsule by mouth once daily. FLORAJEN WOMEN. If on antibiotic, take at least 1-2 hours before or after antibiotic. KEEP REFRIGERATED 30 capsule 11 fluconazole (DIFLUCAN) 150 mg tablet Take 1 tablet by mouth as directed. Take one tablet on Day 1, 4 and 7. (Patient not taking: Reported on 02/13/2023) 3 tablet 0 clotrimazole-betamethasone (LOTRISONE) cream Apply 1 application to affected area twice daily. (Patient not taking: Reported on 02/13/2023) 15 g 2 No current facility-administered medications for this visit. PAST SURGICAL HISTORY Procedure Laterality Date DILATION AND CURETTAGE DXAND/THER NONOBSTETRIC 2008 SAB PAST SURGICAL HISTORY OF 2011 wisdom teeth ext TONSILLECTOMY PRIMARY/SECONDARY Tonsillectomy TUBAL LIGATION HX 03/22/2017 LAPAROSCOPIC LIGATION TUBAL FILSHIE CLIPS FAMILY HISTORY Problem Relation Age of Onset other (arthiritis) Father other (heart murmer) Brother Cancer Maternal Grandfather Cancer Paternal Grandfather lung Cervical Cancer Other paternal cousin Asthma Son Social History Tobacco Use Smoking status: Former Packs/day: 0.50 Types: Cigarettes Quit date: 07/20/2009 Years since quittin.6 Smokeless tobacco: Never Vaping Use Vaping Use: Never used Substance Use Topics Alcohol use: Yes Comment: Seldom, NOT WHILE Drug use: No Objective BP 90/62 Pulse 92 Temp 36.7 ?C (98 ?F) Resp 16 Wt 55.8 kg (123 lb) LMP 01/30/2023 SpO2 97% BMI 20.79 kg/m? Physical Exam Vitals reviewed. Constitutional: Appearance: Normal appearance. HENT: Head: Normocephalic and atraumatic. Genitourinary: Comments: Normal external genitalia. No lesion or rash. Internally she has small amount of white physiologic appearing discharge in the vaginal vault. No lesions or cervical motion tenderness. Skin: General: Skin is warm and dry. Neurological: Mental Status: She is alert. Assessment and Plan ASSESSMENT/PLAN: 1. Vaginal discharge - ICD9: 623.5, ICD10: N89.8 Will treat based on vaginal swabs. Otherwise recommended following up with women's health. - BACTERIAL VAGINOSIS AMPLIFICATION - GC/CHLAMYDIA DNA DET - AMY / TRICHOMONAS AMPLIFICATION Sharee Church PA-C [facility] 03-13-2023 History of Presen t illness Narrative This note was created using [employer]. Subjective Nevin Reed is a 42 year old female. HPI Presents with a chief complaint of vaginal discharge over the past month. She was seen February 13 and had done some self swabs which were negative for BV, trichomonas and yeast. She states symptoms really have not improved so she came back to be reevaluated. She has had problems with chronic vaginitis and has seen women's health multiple times for this. She has had BV and yeast recurrently. Denies any abdominal pain. No urinary complaints. Denies chance of , has had a tubal ligation. She is sexually active with 1 partner. States she sees him 1-2 times a month, they live farther away from each other. Does not use protection. Review of Systems Constitutional: Negative. HENT: Negative. Respiratory: Negative. Cardiovascular: Negative. Gastrointestinal: Negative. Genitourinary: Positive for vaginal discharge and vaginal pain. Negative for dysuria, frequency, hematuria, urgency and vaginal bleeding. Musculoskeletal: Negative. All other systems reviewed and are negative. PAST MEDICAL HISTORY Diagnosis Date Hypoglycemia Kidney stones 2007 Current Outpatient Medications Medication Sig Dispense Refill L. acidophilus-L. rhamnosus 15 billion cell cap Take 1 capsule by mouth once daily. FLORAJEN WOMEN. If on antibiotic, take at least 1-2 hours before or after antibiotic. KEEP REFRIGERATED 30 capsule 11 fluconazole (DIFLUCAN) 150 mg tablet Take 1 tablet by mouth as directed. Take one tablet on Day 1, 4 and 7. (Patient not taking: Reported on 02/13/2023) 3 tablet 0 clotrimazole-betamethasone (LOTRISONE) cream Apply 1 application to affected area twice daily. (Patient not taking: Reported on 02/13/2023) 15 g 2 No current facility-administered medications for this visit. PAST SURGICAL HISTORY Procedure Laterality Date DILATION & CURETTAGE DX&/THER NONOBSTETRIC 2008 SAB PAST SURGICAL HISTORY OF 2012 wisdom teeth ext TONSILLECTOMY PRIMARY/SECONDARY <AGE 13 Tonsillectomy TUBAL LIGATION HX 03/22/2017 LAPAROSCOPIC LIGATION TUBAL FILSHIE CLIPS FAMILY HISTORY Problem Relation Age of Onset other (arthiritis) Father other (heart murmer) Brother Cancer Maternal Grandfather Cancer Paternal Grandfather lung Cervical Cancer Other paternal cousin Asthma Son Social History Tobacco Use Smoking status: Former Packs/day: 0.50 Types: Cigarettes Quit date: 07/20/2009 Years since quittin.6 Smokeless tobacco: Never Vaping Use Vaping Use: Never used Substance Use Topics Alcohol use: Yes Comment: Seldom, NOT WHILE Drug use: No Objective BP 90/62 Pulse 92 Temp 36.7 C (98 F) Resp 16 Wt 55.8 kg (123 lb) LMP 01/30/2023 SpO2 97% BMI 20.79 kg/m Physical Exam Vitals reviewed. Constitutional: Appearance: Normal appearance. HENT: Head: Normocephalic and atraumatic. Genitourinary: Comments: Normal external genitalia. No lesion or rash. Internally she has small amount of white physiologic appearing discharge in the vaginal vault. No lesions or cervical motion tenderness. Skin: General: Skin is warm and dry. Neurological: Mental Status: She is alert. Assessment and Plan ASSESSMENT/PLAN: 1. Vaginal discharge - ICD9: 623.5, ICD10: N89.8 Will treat based on vaginal swabs. Otherwise recommended following up with women's health. - BACTERIAL VAGINOSIS AMPLIFICATION - GC/CHLAMYDIA DNA DET - AMY / TRICHOMONAS AMPLIFICATION Sharee Church PA-C documented in this encounter [facility] 02-14-2023 Miscellaneous Notes Pt was notified of the results. Pt verbalized understanding. Nevin Willis MA Yeast trichomonas and bacterial vaginosis are all negative. If patient is persistent with symptoms she should follow-up with her PASTRY COOK HELPER or primary care provider thank you documented in this encounter [facility] 02-13-2023 Note HNO ID: [id number] Author: Katherine Galindo APRN.STEPHEN Service: ? Author Type: Nurse Practitioner Type: Progress Notes Filed: 02/13/2023 2:27 PM Note Text: Subjective The history is provided by the patient. No educational sign language interpreter was used. HPI Nevin Reed is a 42 year old female who presents today for CC of vaginal discharge/irritation for the past couple days. She is leaving for vacation this weekend and wants to make sure be fore she goes. No lesions or ulcerations. BP 110/68 Pulse 86 Temp 36.7 ?C (98.1 ?F) (Tympanic) Resp 18 Wt 55.1 kg (121 lb 6.4 oz) LMP 01/30/2023 SpO2 97% BMI 20.52 kg/m? Social History Tobacco Use Smoking status: Former Packs/day: 0.50 Types: Cigarettes Quit date: 07/20/2009 Years since quittin.5 Smokeless tobacco: Never Vaping Use Vaping Use: Never used Substance Use Topics Alcohol use: Yes Comment: Seldom, NOT WHILE Drug use: No PAST MEDICAL HISTORY Diagnosis Date Hypoglycemia Kidney stones 2007 I have confirmed and edited as necessary, the [facility] Review of Systems Constitutional: Negative for chills and fever. Gastrointestinal: Negative for abdominal pain. Genitourinary: Negative for dysuria, flank pain, frequency, hematuria and urgency. Vaginal irritation, discharge, denies odor Objective Physical Exam Vitals and nursing note reviewed. Constitutional: Appearance: Normal appearance. Abdominal: General: Bowel sounds are normal. There is no abdominal bruit. Palpations: Abdomen is not rigid. There is no mass or pulsatile mass. Tenderness: There is no abdominal tenderness. There is no guarding or rebound. Negative signs include Bacon's sign and McBurney's sign. Genitourinary: Comments: Patient declined exam, will self swab. Neurological: Mental Status: She is alert and oriented to person, place, and time. Psychiatric: Mood and Affect: Affect normal. ASSESSMENT/PLAN: 1. Acute vaginitis - ICD9: 616.10, ICD10: N76.0 H/o BV. Given RX for Bv - flagyl 500 mg po bid for 7 days, please call and have start if positive on culture. Follow up with PASTRY COOK HELPER - BACTERIAL VAGINOSIS AMPLIFICATION - AMY / TRICHOMONAS AMPLIFICATION Diagnosis and treatment plan were discussed and questions were answered to the patient's satisfaction. Pt acknowledged understanding of concepts and follow up plan. Specific signs and symptoms that would indicate the need for higher level of care were discussed in detail warranting prompt ER evaluation. Katherine Galindo APRN.TURN MACHINE OPERATOR [facility] 01-12-2023 Miscellaneous Notes Results of cultures viewed by patient on mychart ----- Message from Lidia Torres MD sent at 01/12/2023 8:22 AM EST ----- Notify patient that all vaginal cultures negative. documented in this encounter [facility] 01-10-2023 Note HNO ID: [id number] Author: Lidia Torres MD Service: ? Author Type: Physician Type: Progress Notes Filed: 01/10/2023 1:59 PM Note Text: Screen Cutter And Trimmer offered: Patient declines. Nevin Reed is a 42 year old female who presents for concerns regarding vaginal infection. Pt reports has had multiple BV infections this year but has also been placed on ABX multiple times for illness. Pt reports no new sexual partners. She states that she does follow vulvar hygiene guidelines other than she does use pads over tampons. Patient reports she has some generalized pelvic discomfort. No fevers no dysuria. She has some thick discharge occasional odor. Patient does take a vaginal probiotic. Patient offers no other concerns today. 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: Sexual Activity: Yes; Male Contraception: Tubal Ligation PAST MEDICAL HISTORY Diagnosis Date Hypoglycemia Kidney stones 2007 PAST SURGICAL HISTORY Procedure Laterality Date DILATION AND CURETTAGE DXAND/THER NONOBSTETRIC 2009 SAB PAST SURGICAL HISTORY OF 2011 wisdom teeth ext TONSILLECTOMY PRIMARY/SECONDARY Tonsillectomy TUBAL LIGATION HX 03/22/2017 LAPAROSCOPIC LIGATION TUBAL FILSHIE CLIPS FAMILY HISTORY Problem Relation Age of Onset other (arthiritis) Father other (heart murmer) Brother Cancer Maternal Grandfather Cancer Paternal Grandfather lung Cervical Cancer Other paternal cousin Asthma Son Social History Tobacco Use Smoking status: Former Packs/day: 0.50 Types: Cigarettes Quit date: 07/20/2009 Years since quittin.4 Smokeless tobacco: Never Vaping Use Vaping Use: Never used Substance Use Topics Alcohol use: Yes Comment: Seldom, NOT WHILE Drug use: No Current Outpatient Medications Medication Sig fluconazole (DIFLUCAN) 150 mg tablet Take 1 tablet by mouth as directed. Take one tablet on Day 1, 4 and 7. L. acidophilus-L. rhamnosus 15 billion cell cap Take 1 capsule by mouth once daily. FLORAJEN WOMEN. If on antibiotic, take at least 1-2 hours before or after antibiotic. KEEP REFRIGERATED clotrimazole-betamethasone (LOTRISONE) cream Apply 1 application to affected area twice daily. No current facility-administered medications for this visit. Allergies As of Date: 01/10/2023 Allergen Noted Reaction CODEINE 10/01/2008 Rash NICKEL 11/07/2011 Rash Fully Assessed 12/27/2022 REVIEW OF SYSTEMS Abdomen: mild cramping Bladder: no dysuria .. Expanded ROS: GENERAL: Negative for fever Allergies and current medication updated:Yes EXAM: BP 100/60 Wt 122 lb (55.3kg) LMP 12/14/2022 GENERAL: pleasant, female in no apparent distress HEENT: Normocephalic and atraumatic PELVIC: external genitalia normal, normal Bartholin's glands, urethra, [place] glands, no vulvar lesions, no cervical lesions, good vaginal support, physiologic discharge present, normal appearing perineal body and perianal region, Thick white discharge NEURO: alert and oriented x3,exam grossly non-focal EXTREMITIES: normal ASSESSMENT AND PLAN: Encounter Diagnosis ICD-10-CM 1. Vaginal discharge N89.8 AMY / TRICHOMONAS AMPLIFICATION BACTERIAL VAGINOSIS AMPLIFICATION 2. Recurrent vaginitis N76.0 3. Discussed recurrent BV will wait for official results. If BV is positive would recommend treating with oral Flagyl twice daily x7 days followed by 6 months of metronidazole twice weekly. Rationale for this was reviewed with the patient. She will switch to Azo dual relief probiotic. We again discussed vulvar hygiene. Recommended using condoms. Today it appears that she likely has yeast. Recommendation for Diflucan times 1 repeat in 72 hours if indicated. Medical Decision Making: Problems: Low: Acute, uncomplicated illness or injury Data: Unique test(s) ordered: 3+ Risk: Moderate: Drug management Medical Decision Making Level: 4 - Moderate Lidia Delgado MD [facility] 12-27-2022 Note HNO ID: [id number] Author: Linda Huff APRN.TAMRA Service: ? Author Type: Broadband Engineer Type: Progress Notes Filed: 12/27/2022 3:49 PM Note Text: Gc/Screen Cutter And Trimmer offered: Patient declines. Nevin Reed is a 42 year old female who presents for problem visit of continued vaginal irritation with an increase in vaginal discharge. Patient last seen in office 2 weeks ago for similar complaints. Swabs negative for infection. Patient stated she has intercourse last weekend and did not use protection and thinks she is allergic to boyfriend's seamen . Feels vaginal irritation more frequently after having unprotected intercourse. 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: Sexual Activity: Yes; Male Contraception: Tubal Ligation PAST MEDICAL HISTORY Diagnosis Date Hypoglycemia Kidney stones 2007 PAST SURGICAL HISTORY Procedure Laterality Date DILATION AND CURETTAGE DXAND/THER NONOBSTETRIC 2008 SAB PAST SURGICAL HISTORY OF 2012 wisdom teeth ext TONSILLECTOMY PRIMARY/SECONDARY Tonsillectomy TUBAL LIGATION HX 03/22/2017 LAPAROSCOPIC LIGATION TUBAL FILSHIE CLIPS FAMILY HISTORY Problem Relation Age of Onset other (arthiritis) Father other (heart murmer) Brother Cancer Maternal Grandfather Cancer Paternal Grandfather lung Cervical Cancer Other paternal cousin Asthma Son Social History Tobacco Use Smoking status: Former Packs/day: 0.50 Types: Cigarettes Quit date: 07/20/2009 Years since quittin.4 Smokeless tobacco: Never Vaping Use Vaping Use: Never used Substance Use Topics Alcohol use: Yes Comment: Seldom, NOT WHILE Drug use: No Current Outpatient Medications Medication Sig fluconazole (DIFLUCAN) 150 mg tablet Take 1 tablet by mouth as directed. Take one tablet on Day 1, 4 and 7. L. acidophilus-L. rhamnosus 15 billion cell cap Take 1 capsule by mouth once daily. [facility]ORAJEN WOMEN. If on antibiotic, take at least 1-2 hours before or after antibiotic. KEEP REFRIGERATED clotrimazole-betamethasone (LOTRISONE) cream Apply 1 application to affected area twice daily. No current facility-administered medications for this visit. Allergies As of Date: 12/27/2022 Allergen Noted Reaction CODEINE 10/01/2008 Rash NICKEL 11/07/2011 Rash Fully Assessed 12/27/2022 REVIEW OF SYSTEMS Abdomen: No bloating, early satiety, indigestion, or increased flatulence. No abdominal pain, nausea, vomiting, diarrhea, or constipation. Bladder: No dysuria, gross hematuria, urinary frequency, urinary urgency, or incontinence. Breast: No breast lumps, nipple d/c, overlying skin changes, redness or skin retraction. Expanded ROS: N/A Allergies and current medication updated:Yes EXAM: BP 100/60 Wt 124 lb 12.8 oz (56.6kg) LMP 12/14/2022 GENERAL: pleasant, female in no apparent distress HEENT: Normocephalic and atraumatic NECK: Supple and full range of motion DERMATOLOGY: Normal and without lesions BREAST: deferred CHEST: Normal inspiratory effort ABDOMEN: soft, non-tender, and no masses PELVIC: external genitalia normal, normal Bartholin's glands, urethra, [place] glands, no vulvar lesions, no cervical lesions, good vaginal support, normal appearing perineal body and perianal region, moderate amount of thick, white/yellow discharge present on vaginal sun and cervix BIMANUAL: uterus normal size, shape and consistency, no adnexal masses, non-tender, and no cervical motion tenderness NEURO: alert and oriented x3,exam grossly non-focal EXTREMITIES: normal ASSESSMENT/PLAN: 1. Vaginal discharge - ICD9: 623.5, ICD10: N89.8 (primary diagnosis) - BACTERIAL VAGINOSIS AMPLIFICATION - AMY / TRICHOMONAS AMPLIFICATION - GC/CHLAMYDIA DNA DET 2. Vaginal irritation - ICD9: 623.9, ICD10: N89.8 Reviewed vulvar hygiene Continue probiotics daily Hand out and discussion of Clairvee- patient to order Will notify patient of results and an changes to plan of care Linda Huff APRN.CNM [facility] 12-27-2022 Instructions Linda Huff APRN.CNM - 12/27/2022 2:31 PM EST Images from the original note were not included. *Clairvee is the only oral probiotic that has been proven to target the vagina's microbiome, restoring lactobacilli, and thus reducing the recurrence of BV and yeast. Rigorous clinical trials show that Clairvee significantly reduces these annoying recurrences while balancing the vagina's microbiome and pH. Clairvee should be taken orally each day for 15 days of the month; 15 days off; then resumed for 15 days and so forth. Clairvee begins to balance the microbiome in as little as 15 days with best results at 6 months. Clairvee is professionally recommended, easily ordered by the patient, costs about $35 per month, and directly shipped to the patient's home. Clairvee is a great option for patients who struggle with recurring BV and yeast who have had no other prevention strategies in the past. It is also a great choice for women who have GSM symptoms of odor, itching, and discharge with an intermediate celeste score, but have not had any other means to eliminate the embarrassing symptoms. documented in this encounter [facility] 12-27-2022 History of Presen t illness Narrative Gc/Screen Cutter And Trimmer offered: Patient declines. Nevin Reed is a 42 year old female who presents for problem visit of continued vaginal irritation with an increase in vaginal discharge. Patient last seen in office 2 weeks ago for similar complaints. Swabs negative for infection. Patient stated she has intercourse last weekend and did not use protection and thinks she is allergic to boyfriend's seamen . Feels vaginal irritation more frequently after having unprotected intercourse. 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: Sexual Activity: Yes; Male Contraception: Tubal Ligation PAST MEDICAL HISTORY Diagnosis Date Hypoglycemia Kidney stones 2007 PAST SURGICAL HISTORY Procedure Laterality Date DILATION & CURETTAGE DX&/THER NONOBSTETRIC 2009 SAB PAST SURGICAL HISTORY OF 2012 wisdom teeth ext TONSILLECTOMY PRIMARY/SECONDARY <AGE 13 Tonsillectomy TUBAL LIGATION HX 03/22/2017 LAPAROSCOPIC LIGATION TUBAL FILSHIE CLIPS FAMILY HISTORY Problem Relation Age of Onset other (arthiritis) Father other (heart murmer) Brother Cancer Maternal Grandfather Cancer Paternal Grandfather lung Cervical Cancer Other paternal cousin Asthma Son Social History Tobacco Use Smoking status: Former Packs/day: 0.50 Types: Cigarettes Quit date: 07/20/2009 Years since quittin.4 Smokeless tobacco: Never Vaping Use Vaping Use: Never used Substance Use Topics Alcohol use: Yes Comment: Seldom, NOT WHILE Drug use: No Current Outpatient Medications Medication Sig fluconazole (DIFLUCAN) 150 mg tablet Take 1 tablet by mouth as directed. Take one tablet on Day 1, 4 and 7. L. acidophilus-L. rhamnosus 15 billion cell cap Take 1 capsule by mouth once daily. FLORAJEN WOMEN. If on antibiotic, take at least 1-2 hours before or after antibiotic. KEEP REFRIGERATED clotrimazole-betamethasone (LOTRISONE) cream Apply 1 application to affected area twice daily. No current facility-administered medications for this visit. Allergies As of Date: 12/27/2022 Allergen Noted Reaction CODEINE 10/01/2008 Rash NICKEL 11/07/2011 Rash Fully Assessed 12/27/2022 REVIEW OF SYSTEMS Abdomen: No bloating, early satiety, indigestion, or increased flatulence. No abdominal pain, nausea, vomiting, diarrhea, or constipation. Bladder: No dysuria, gross hematuria, urinary frequency, urinary urgency, or incontinence. Breast: No breast lumps, nipple d/c, overlying skin changes, redness or skin retraction. Expanded ROS: N/A Allergies and current medication updated:Yes EXAM: BP 100/60 Wt 124 lb 12.8 oz (56.6kg) LMP 12/14/2022 GENERAL: pleasant, female in no apparent distress HEENT: Normocephalic and atraumatic NECK: Supple and full range of motion DERMATOLOGY: Normal and without lesions BREAST: deferred CHEST: Normal inspiratory effort ABDOMEN: soft, non-tender, and no masses PELVIC: external genitalia normal, normal Bartholin's glands, urethra, [place] glands, no vulvar lesions, no cervical lesions, good vaginal support, normal appearing perineal body and perianal region, moderate amount of thick, white/yellow discharge present on vaginal sun and cervix BIMANUAL: uterus normal size, shape and consistency, no adnexal masses, non-tender, and no cervical motion tenderness NEURO: alert and oriented x3,exam grossly non-focal EXTREMITIES: normal ASSESSMENT/PLAN: 1. Vaginal discharge - ICD9: 623.5, ICD10: N89.8 (primary diagnosis) - BACTERIAL VAGINOSIS AMPLIFICATION - AMY / TRICHOMONAS AMPLIFICATION - GC/CHLAMYDIA DNA DET 2. Vaginal irritation - ICD9: 623.9, ICD10: N89.8 Reviewed vulvar hygiene Continue probiotics daily Hand out and discussion of Clairvee- patient to order Will notify patient of results and an changes to plan of care Linda Huff APRN.CNM documented in this encounter [facility] 12-12-2022 Note HNO ID: [id number] Author: Linda Huff APRN.CNM Service: ? Author Type: Broadband Engineer Type: Progress Notes Filed: 12/12/2022 2:23 PM Note Text: Screen Cutter And Trimmer offered: Patient declines. Nevin Reed is a 42 year old female who presents for follow up visit. She was treated for bacterial vaginosis and yeast both earlier this month and would like test of cure today. Just completed 7 night Monistat 2 days ago. Denies any vaginal discharge, odor, burning, or pruritis but just feels off and irritated at times . Taking daily probiotic and using all free and clear soaps and detergents. REVIEW OF SYSTEMS Abdomen: No bloating, early satiety, indigestion, or increased flatulence. No abdominal pain, nausea, vomiting, diarrhea, or constipation. Bladder: No dysuria, gross hematuria, urinary frequency, urinary urgency, or incontinence. Breast: No breast lumps, nipple d/c, overlying skin changes, redness or skin retraction. Expanded ROS: N/A Allergies and current medication updated:Yes EXAM: BP 96/60 Wt 124 lb (56.2kg) LMP 11/15/2022 GENERAL: pleasant, female in no apparent distress PELVIC: external genitalia normal, normal Bartholin's glands, urethra, [place] glands, no vulvar lesions, no cervical lesions, good vaginal support, physiologic discharge present, normal appearing perineal body and perianal region NEURO: alert and oriented x3,exam grossly non-focal EXTREMITIES: normal ASSESSMENT/PLAN: 1. Vaginal irritation - ICD9: 623.9, ICD10: N89.8 - BACTERIAL VAGINOSIS AMPLIFICATION - AMY / TRICHOMONAS AMPLIFICATION - Reviewed vulvar hygiene practices Will notify patient of results and any changes to treatment plan Linda Huff APRN.[facility] 12-12-2022 History of Presen t illness Narrative Screen Cutter And Trimmer offered: Patient declines. Nevin Reed is a 42 year old female who presents for follow up visit. She was treated for bacterial vaginosis and yeast both earlier this month and would like test of cure today. Just completed 7 night Monistat 2 days ago. Denies any vaginal discharge, odor, burning, or pruritis but just feels off and irritated at times . Taking daily probiotic and using all free and clear soaps and detergents. REVIEW OF SYSTEMS Abdomen: No bloating, early satiety, indigestion, or increased flatulence. No abdominal pain, nausea, vomiting, diarrhea, or constipation. Bladder: No dysuria, gross hematuria, urinary frequency, urinary urgency, or incontinence. Breast: No breast lumps, nipple d/c, overlying skin changes, redness or skin retraction. Expanded ROS: N/A Allergies and current medication updated:Yes EXAM: BP 96/60 Wt 124 lb (56.2kg) LMP 11/15/2022 GENERAL: pleasant, female in no apparent distress PELVIC: external genitalia normal, normal Bartholin's glands, urethra, [place] glands, no vulvar lesions, no cervical lesions, good vaginal support, physiologic discharge present, normal appearing perineal body and perianal region NEURO: alert and oriented x3,exam grossly non-focal EXTREMITIES: normal ASSESSMENT/PLAN: 1. Vaginal irritation - ICD9: 623.9, ICD10: N89.8 - BACTERIAL VAGINOSIS AMPLIFICATION - AMY / TRICHOMONAS AMPLIFICATION - Reviewed vulvar hygiene practices Will notify patient of results and any changes to treatment plan Linda Huff APRN.CNM documented in this encounter [facility] 11-29-2022 Note HNO ID: [id number] Author: Ivon Glaser APRN.CNP Service: ? Author Type: Nurse Practitioner Type: Progress Notes Filed: 11/29/2022 2:53 PM Note Text: Screen Cutter And Trimmer offered: Patient declines. Nevin Reed is a 42 year old female who presents for vaginal mucous for 2 days. Started following end of menses. Treated for BV and yeast 3 weeks ago following antibiotic. Has been using baby wipes if she does not feel clean. Vaginal discharge: mucus white. Itching: No Dyspareunia: No Fever/chills: No Abdominal pain: No Bladder: Negative for dysuria or frequency Bowel: No blood in stool, pain with BM, tarry stool, persistent diarrhea or constipation Any new sexual partners or concern for STD exposure: No Any history of STDs: None Does your partner have any new complaints: No Are you currently taking any medications to treat vaginitis: Yes, RepHresh 2 days ago Do you use feminine sprays, douches or deodorants: No Past medical, surgical, social history, medications and allergies reviewed and updated. OBJECTIVE: BP 100/60 Wt 125 lb 3.2 oz (56.8kg) LMP 11/15/2022 GENERAL: Well developed, well nourished in no apparent distress ABDOMEN: soft, non-tender, and no masses PELVIC: external genitalia normal, normal Bartholin's glands, urethra, [place]'s glands, no vulvar lesions, no cervical lesions, good vaginal support, clear discharge present, normal appearing perineal body and perianal region BIMANUAL: uterus normal size, shape and consistency, no adnexal masses, and non-tender. ASSESSMENT/PLAN: 1. Vaginal discharge - ICD9: 623.5, ICD10: N89.8 - BACTERIAL VAGINOSIS AMPLIFICATION - AMY / TRICHOMONAS AMPLIFICATION - reviewed vulvar hygiene instructions. Will notify of results. Follow- up as needed. Ivon Glaser APRN.CNP Medical Decision Making: Problems: Low: Acute, uncomplicated illness or injury Data: Unique test(s) ordered: 2 Medical Decision Making Level: 3 - Low [facility] 11-29-2022 History of Presen t illness Narrative Screen Cutter And Trimmer offered: Patient declines. Nevin Reed is a 42 year old female who presents for vaginal mucous for 2 days. Started following end of menses. Treated for BV and yeast 3 weeks ago following antibiotic. Has been using baby wipes if she does not feel clean. Vaginal discharge: mucus white. Itching: No Dyspareunia: No Fever/chills: No Abdominal pain: No Bladder: Negative for dysuria or frequency Bowel: No blood in stool, pain with BM, tarry stool, persistent diarrhea or constipation Any new sexual partners or concern for STD exposure: No Any history of STDs: None Does your partner have any new complaints: No Are you currently taking any medications to treat vaginitis: Yes, RepHresh 2 days ago Do you use feminine sprays, douches or deodorants: No Past medical, surgical, social history, medications and allergies reviewed and updated. OBJECTIVE: BP 100/60 Wt 125 lb 3.2 oz (56.8kg) LMP 11/15/2022 GENERAL: Well developed, well nourished in no apparent distress ABDOMEN: soft, non-tender, and no masses PELVIC: external genitalia normal, normal Bartholin's glands, urethra, [place] glands, no vulvar lesions, no cervical lesions, good vaginal support, clear discharge present, normal appearing perineal body and perianal region BIMANUAL: uterus normal size, shape and consistency, no adnexal masses, and non-tender. ASSESSMENT/PLAN: 1. Vaginal discharge - ICD9: 623.5, ICD10: N89.8 - BACTERIAL VAGINOSIS AMPLIFICATION - AMY / TRICHOMONAS AMPLIFICATION - reviewed vulvar hygiene instructions. Will notify of results. Follow- up as needed. Ivon Glaser APRN.CNP Medical Decision Making: Problems: Low: Acute, uncomplicated illness or injury Data: Unique test(s) ordered: 2 Medical Decision Making Level: 3 - Low documented in this encounter [facility] 11-07-2022 Note HNO ID: [id number] Author: Ivon Glaser APRN.STEPHEN Service: ? Author Type: Nurse Practitioner Type: Progress Notes Filed: 11/07/2022 2:46 PM Note Text: Screen Cutter And Trimmer offered: Patient declines. Nevin Reed is a 42 year old female who presents for vaginal pruritis for 1 day. On day 4 of 10 of amoxicillin for strep throat. Thinks may be starting a yeast infection. Vaginal discharge: small amount mucus Itching: YES Dyspareunia: N/A Fever/chills: No Abdominal pain: No Bladder: Negative for dysuria or frequency Bowel: No blood in stool, pain with BM, tarry stool, persistent diarrhea or constipation Any new sexual partners or concern for STD exposure: Yes: 1 week ago Any history of STDs: None Does your partner have any new complaints: No Are you currently taking any medications to treat vaginitis: No Do you use feminine sprays, douches or deodorants: Started using new shaving cream Menstrual cycle: cycles regular Contraception: tubal sterilization Last pap: 2018, normal Past medical, surgical, social history, medications and allergies reviewed and updated. OBJECTIVE: BP 100/60 Wt 125 lb 9.6 oz (57.0kg) LMP 10/17/2022 GENERAL: Well developed, well nourished in no apparent distress ABDOMEN: soft, non-tender, and no masses PELVIC: external genitalia normal, normal Bartholin's glands, urethra, [place]'s glands, no vulvar lesions, no cervical lesions, good vaginal support, scant amount thick pale yellow discharge present, normal appearing perineal body and perianal region BIMANUAL: uterus normal size, shape and consistency, no adnexal masses, and non-tender. ASSESSMENT/PLAN: 1. Vaginal itching - ICD9: 698.1, ICD10: N89.8 (primary diagnosis) - Declined STD testing. - BACTERIAL VAGINOSIS AMPLIFICATION - AMY / TRICHOMONAS AMPLIFICATION 2. Acute vaginitis - ICD9: 616.10, ICD10: N76.0 - LACTOBACILLUS ACIDOPHILUS AND RHAMNOSUS 15 BILLION CELL CAPSULE Will notify of results - Diflucan if appropriate. Follow- up as needed. Ivon Glaser APRN.CNP Medical Decision Making: Problems: Low: Acute, uncomplicated illness or injury Data: Unique test(s) ordered: 2 Risk: Moderate: Drug management Medical Decision Making Level: 3 - Low [facility] 11-07-2022 Instructions Ivon Glaser APRN.CNP - 11/07/2022 2:14 PM EST Aquaphor Separate any probiotic from antibiotic for 1-2 hours. documented in this encounter [facility] 11-07-2022 History of Presen t illness Narrative Screen Cutter And Trimmer offered: Patient declines. Nevin Reed is a 42 year old female who presents for vaginal pruritis for 1 day. On day 4 of 10 of amoxicillin for strep throat. Thinks may be starting a yeast infection. Vaginal discharge: small amount mucus Itching: YES Dyspareunia: N/A Fever/chills: No Abdominal pain: No Bladder: Negative for dysuria or frequency Bowel: No blood in stool, pain with BM, tarry stool, persistent diarrhea or constipation Any new sexual partners or concern for STD exposure: Yes: 1 week ago Any history of STDs: None Does your partner have any new complaints: No Are you currently taking any medications to treat vaginitis: No Do you use feminine sprays, douches or deodorants: Started using new shaving cream Menstrual cycle: cycles regular Contraception: tubal sterilization Last pap: 2018, normal Past medical, surgical, social history, medications and allergies reviewed and updated. OBJECTIVE: BP 100/60 Wt 125 lb 9.6 oz (57.0kg) LMP 10/17/2022 GENERAL: Well developed, well nourished in no apparent distress ABDOMEN: soft, non-tender, and no masses PELVIC: external genitalia normal, normal Bartholin's glands, urethra, [place] glands, no vulvar lesions, no cervical lesions, good vaginal support, scant amount thick pale yellow discharge present, normal appearing perineal body and perianal region BIMANUAL: uterus normal size, shape and consistency, no adnexal masses, and non-tender. ASSESSMENT/PLAN: 1. Vaginal itching - ICD9: 698.1, ICD10: N89.8 (primary diagnosis) - Declined STD testing. - BACTERIAL VAGINOSIS AMPLIFICATION - AMY / TRICHOMONAS AMPLIFICATION 2. Acute vaginitis - ICD9: 616.10, ICD10: N76.0 - LACTOBACILLUS ACIDOPHILUS AND RHAMNOSUS 15 BILLION CELL CAPSULE Will notify of results - Diflucan if appropriate. Follow- up as needed. Ivon Glaser APRN.CNP Medical Decision Making: Problems: Low: Acute, uncomplicated illness or injury Data: Unique test(s) ordered: 2 Risk: Moderate: Drug management Medical Decision Making Level: 3 - Low documented in this encounter [facility] 11-04-2022 Instructions Veronica Lake APRN.CNP - 11/04/2022 9:20 AM EST STREP INFECTIONS: Streptococcal bacteria can cause a sore throat, ear and sinus infections, and skin diseases. Strep throat is diagnosed by a special throat swab or culture test. These infections require either an antibiotic shot or an oral antibiotic medicine to get rid of all the bacteria and prevent rheumatic fever, a dangerous complication. The symptoms of Strep infection, however, usually get better after just 2-3 days of drug treatment. These infections are very contagious; any close contacts who have a fever, sore throat, or illness symptoms should see their doctor right away. Strep is no longer contagious after 24 hours of antibiotic treatment so you may return to school or work if your fever and pain are better in one day. Strep infections can cause serious complications including throat abscess, rheumatic fever and kidney disease, so be sure to take all your antibiotic medicine. See your doctor or return here if your symptoms worsen or are not improved in 3 days or for diffuculty breathing or inability to swallow. documented in this encounter [facility] 11-04-2022 History of Presen t illness Narrative This note was created using NoteWriter. Subjective Nevin Reed is a 42 year old female. 42 year old female with PMH tonsillectomy presents for illness. Acute onset 3 days ago +achy +chilled +stuffy nose +sore throat So persistent Denies difficulty handling secretions. Denies skin rash or lesions. Denies fever or chills. Denies cough. Denies SOB or dyspnea. States symptoms worsened last night. The history is provided by the patient. Sore Throat This is a new problem. The current episode started in the past 7 days. The problem has been gradually worsening. Neither side of throat is experiencing more pain than the other. The maximum temperature recorded prior to her arrival was 100.4 - 100.9 F. The fever has been present for Less than 1 day. The pain is moderate. Associated symptoms include congestion and swollen glands. Pertinent negatives include no abdominal pain, coughing, diarrhea, drooling, ear discharge, ear pain, headaches, hoarse voice, shortness of breath, stridor, trouble swallowing or vomiting. She has had no exposure to strep or mono. She has tried nothing for the symptoms. The treatment provided no relief. PAST MEDICAL HISTORY Diagnosis Date Hypoglycemia Kidney stones 2007 PAST SURGICAL HISTORY Procedure Laterality Date DILATION & CURETTAGE DX&/THER NONOBSTETRIC 2009 SAB PAST SURGICAL HISTORY OF 2011 wisdom teeth ext TONSILLECTOMY PRIMARY/SECONDARY <AGE 13 Tonsillectomy TUBAL LIGATION HX 03/22/2017 LAPAROSCOPIC LIGATION TUBAL FILSHIE CLIPS ALLERGIES Codeine and Nickel MEDICATIONS amoxicillin (POLYMOX, AMOXIL) 500 mg capsule Take 1 capsule by mouth twice daily for 10 days. L. acidophilus-L. rhamnosus 15 billion cell cap Take 1 capsule by mouth once daily. [employer] WOMEN. If on antibiotic, take at least 1-2 hours before or after antibiotic. KEEP REFRIGERATED (Patient not taking: No sig reported) clotrimazole-betamethasone (LOTRISONE) cream Apply 1 application to affected area twice daily. (Patient not taking: No sig reported) FAMILY HISTORY Problem Relation Age of Onset other (arthiritis) Father other (heart murmer) Brother Cancer Maternal Grandfather Cancer Paternal Grandfather lung Cervical Cancer Other paternal cousin Asthma Son Social History Tobacco Use Smoking status: Former Packs/day: 0.50 Types: Cigarettes Quit date: 07/20/2009 Years since quittin.3 Smokeless tobacco: Never Vaping Use Vaping Use: Never used Substance Use Topics Alcohol use: Yes Comment: Seldom, NOT WHILE Drug use: No Review of Systems Constitutional: Negative for activity change, appetite change and chills. HENT: Positive for congestion, rhinorrhea and sore throat. Negative for drooling, ear discharge, ear pain, hoarse voice and trouble swallowing. Eyes: Negative for pain, discharge, redness and itching. Respiratory: Negative for cough, shortness of breath and stridor. Cardiovascular: Negative for chest pain, palpitations and leg swelling. Gastrointestinal: Negative for abdominal pain, diarrhea and vomiting. Musculoskeletal: Negative for back pain and gait problem. Skin: Negative for color change, pallor and rash. Allergic/Immunologic: Positive for environmental allergies. Negative for food allergies and immunocompromised state. Neurological: Negative for dizziness, facial asymmetry and headaches. Hematological: Negative for adenopathy. Does not bruise/bleed easily. Psychiatric/Behavioral: Negative for agitation and behavioral problems. Objective BP 106/78 Pulse 102 Temp 36.9 C (98.4 F) Resp 18 Wt 56.1 kg (123 lb 9.6 oz) LMP 06/20/2022 SpO2 98% BMI 20.89 kg/m Physical Exam Vitals and nursing note reviewed. Constitutional: General: She is not in acute distress. Appearance: Normal appearance. She is normal weight. She is not ill-appearing, toxic-appearing or diaphoretic. HENT: Head: Normocephalic and atraumatic. Right Ear: Ear canal and external ear normal. Left Ear: Ear canal and external ear normal. Nose: Nose normal. No congestion or rhinorrhea. Mouth/Throat: Mouth: Mucous membranes are moist. Pharynx: Posterior oropharyngeal erythema (posterior oropharynx with erythema. Tonsils surgically absent) present. No oropharyngeal exudate. Eyes: General: Right eye: No discharge. Left eye: No discharge. Extraocular Movements: Extraocular movements intact. Conjunctiva/sclera: Conjunctivae normal. Pupils: Pupils are equal, round, and reactive to light. Cardiovascular: Rate and Rhythm: Normal rate and regular rhythm. Pulses: Normal pulses. Heart sounds: Normal heart sounds. No murmur heard. No friction rub. Pulmonary: Effort: Pulmonary effort is normal. No respiratory distress. Breath sounds: Normal breath sounds. No stridor. No wheezing, rhonchi or rales. Chest: Chest wall: No tenderness. Abdominal: General: Abdomen is flat. There is no distension. Palpations: Abdomen is soft. There is no mass. Tenderness: There is no abdominal tenderness. There is no right CVA tenderness, left CVA tenderness, guarding or rebound. Hernia: No hernia is present. Musculoskeletal: General: No swelling, tenderness, deformity or signs of injury. Normal range of motion. Cervical back: Normal range of motion and neck supple. No rigidity. Right lower leg: No edema. Left lower leg: No edema. Lymphadenopathy: Cervical: Cervical adenopathy present. Skin: General: Skin is warm and dry. Capillary Refill: Capillary refill takes less than 2 seconds. Coloration: Skin is not jaundiced or pale. Findings: No bruising, erythema, lesion or rash. Neurological: General: No focal deficit present. Mental Status: She is alert and oriented to person, place, and time. Cranial Nerves: No cranial nerve deficit. Sensory: No sensory deficit. Motor: No weakness. Coordination: Coordination normal. Gait: Gait normal. Psychiatric: Mood and Affect: Mood normal. Behavior: Behavior normal. Thought Content: Thought content normal. Judgment: Judgment normal. Assessment and Plan ASSESSMENT/PLAN: 1. Strep pharyngitis - ICD9: 034.0, ICD10: J02.0 (primary diagnosis) - Alere Strep Test POSITIVE, no culture pending - antibiotic as written and Amoxicillin for 10 days. - Discussed supportive care treatment with fluids, rest and analgesia. - The patient may also use OTC cough and cold meds as needed, warm salt water gargles, throat lozenges and/or OTC throat spray as needed, and nasal saline gtts and suction prn. - Contagious dz precautions discussed- including considered contagious until on antibiotics for 24 hours - The patient should follow up in 3-5 days if symptoms persist or worsen - Call back if drooling, increased temperature, symptoms of dehydration and/or still sick in one week 2. URI, acute - ICD9: 465.9, ICD10: J06.9 - Discussed possibility that her symptoms could be in combo with a viral etiology and rationale for treatment. - Symptomatic treatment with prn analgesia - Supportive care with fluids and rest Veronica Lake APRN.[employer] documented in this encounter [facility] 07-17-2022 History of Presen t illness Narrative Nevin Reed is a 42 year old female who presents for vaginal symptoms. White discharge. No odor. Has vaginal itching and burning. Currently sexually active. Monogamous relationship. No concern for STI. No fevers, chills, pain. Past medical, surgical, social history, medications and allergies reviewed and updated. OBJECTIVE: BP 118/62 Wt 126 lb (57.2kg) LMP 06/20/2022 GENERAL: Well developed, well nourished in no apparent distress ABDOMEN: soft, non-tender, and no masses PELVIC: external genitalia normal, normal Bartholin's glands, urethra, [place]'s glands, no vulvar lesions, no cervical lesions, good vaginal support, physiologic discharge present, normal appearing perineal body and perianal region ASSESSMENT/PLAN: Vaginitis - Check BV and yeast - She reports she has tried RepHresh in past without improvement - Can try probiotic - Reviewed vulvar care and hygiene measures Liseth Stevenson DO Medical Decision Making: Problems: Low: Acute, uncomplicated illness or injury Data: Unique test(s) ordered: 2 Medical Decision Making Level: 3 - Low documented in this encounter [facility] documented as of this encounter (statuses as of 07/20/2022) [facility] History of Past illness Narrative* Problem Noted Date Resolved Date CMV (cytomegalovirus) antibody positive 12/30/19 15 02/05/2015 SUPRV HIGH-RISK PREG NOS [V23.9] 09/24/2014 02/05/2015 IUGR (intrauterine growth restriction) 4 02/05/2015 Overview: 10/23/14 - weekly US with dopplers & BPP, growth US with mfm next week - KJ Ordered TORCH titers, repeat growth US In 3 weeks, severe early IUGR discussed increased risk for loss, poor outcomes. Support system deficit 06/02/2014 5 Overview: 06/02/2014Patient states the father of the baby is aware that she is , but doesn't want to be involved with her or her son. TKRN with adoption planned 06/02/2014 10/23/2014 Overview: 06/02/2014 Patient is considering adoption. [place] adoption guide given to patient. TKRN History of kidney stones 06/02/2014 015 Overview: 06/02/2014Patient has a history of kidney stones in 2007. TKRN History of hypoglycemia 06/02/2014 02/06/20 Overview: 06/02/2014Patient has a history of hypoglycemia. Discussed the importance of eating something every 2-3 hours. TKRN Constipation in 06/02/20142014 Overview: 06/02/2014 Patient has a history of constipation. Dietary considerations discussed. Patient is advised to avoid straining with bowel movements. TKRN Pelvic pain in female 03/07/2013 02/05/2015 Chronic vaginitis 01/10/2013 02/05/2015 Leukorrhea, not specified as infective 2 01/10/2013 Unspecified inflammatory dis ease of female pelvic organs and tissues 03/18/2012 03/26/2012 Vaginitis and vulvovaginitis, unspecified 201101/10/2013 Unspecified symptom associated with female genit al organs 03/18/2012 03/26/2012 BV (bacterial vaginosis) 12/29/2011 012 Chronic vulvovaginitis 11/25/2011 2 Vulvar irritation 11/25/2011 01/10/2013 Vaginal irritation 11/07/2011 11/25/2011 Calculus of ureter 10/01/2008 11/10/2011 documented as of this encounter (statuses as of 11/04/2022) [facility] History of Past illness Narrative* Problem Noted Date Resolved Date CMV (cytomegalovirus) antibody positive 12/30/19 15 02/05/2015 SUPRV HIGH-RISK PREG NOS [V23.9] 09/24/2014 02/05/2015 IUGR (intrauterine growth restriction) 4 02/05/2015 Overview: 10/23/14 - weekly US with dopplers & BPP, growth US with mfm next week - KJ Ordered TORCH titers, repeat growth US In 3 weeks, severe early IUGR discussed increased risk for loss, poor outcomes. Support system deficit 06/02/2014 5 Overview: 06/02/2014Patient states the father of the baby is aware that she is , but doesn't want to be involved with her or her son. TKRN with adoption planned 06/02/2014 10/23/2014 Overview: 06/02/2014 Patient is considering adoption. [place] adoption guide given to patient. TKRN History of kidney stones 06/02/2014 015 Overview: 06/02/2014Patient has a history of kidney stones in 2007. TKRN History of hypoglycemia 06/02/2014 02/06/20 15 Overview: 06/02/2014Patient has a history of hypoglycemia. Discussed the importance of eating something every 2-3 hours. TKRN Constipation in 06/02/20142014 Overview: 06/02/2014 Patient has a history of constipation. Dietary considerations discussed. Patient is advised to avoid straining with bowel movements. TKRN Pelvic pain in female 03/07/2013 02/05/2015 Chronic vaginitis 01/10/2013 02/05/2015 Leukorrhea, not specified as infective 2 01/10/2013 Unspecified inflammatory dis ease of female pelvic organs and tissues 03/18/2012 03/26/2012 Vaginitis and vulvovaginitis, unspecified 201101/10/2013 Unspecified symptom associated with female genit al organs 03/18/2012 03/26/2012 BV (bacterial vaginosis) 12/29/2011 012 Chronic vulvovaginitis 11/25/2011 2 Vulvar irritation 11/25/2011 01/10/2013 Vaginal irritation 11/07/2011 11/25/2011 Calculus of ureter 10/01/2008 11/10/2011 documented as of this encounter (statuses as of 11/07/2022) [facility] History of Past illness Narrative* Problem Noted Date Resolved Date CMV (cytomegalovirus) antibody positive 12/30/19 15 02/05/2015 SUPRV HIGH-RISK PREG NOS [V23.9] 09/24/2014 02/05/2015 IUGR (intrauterine growth restriction) 4 02/05/2015 Overview: 10/23/14 - weekly US with dopplers & BPP, growth US with mfm next week - KJ Ordered TORCH titers, repeat growth US In 3 weeks, severe early IUGR discussed increased risk for loss, poor outcomes. Support system deficit 06/02/2014 5 Overview: 06/02/2014Patient states the father of the baby is aware that she is , but doesn't want to be involved with her or her son. TKRN with adoption planned 06/02/2014 10/23/2014 Overview: 06/02/2014 Patient is considering adoption. [place] adoption guide given to patient. TKRN History of kidney stones 06/02/2014 015 Overview: 06/02/2014Patient has a history of kidney stones in 2007. TKRN History of hypoglycemia 06/02/2014 02/06/20 Overview: 06/02/2014Patient has a history of hypoglycemia. Discussed the importance of eating something every 2-3 hours. TKRN Constipation in 06/02/20142014 Overview: 06/02/2014 Patient has a history of constipation. Dietary considerations discussed. Patient is advised to avoid straining with bowel movements. TKRN Pelvic pain in female 03/07/2013 02/05/2015 Chronic vaginitis 01/10/2013 02/05/2015 Leukorrhea, not specified as infective 2 01/10/2013 Unspecified inflammatory dis ease of female pelvic organs and tissues 03/18/2012 03/26/2012 Vaginitis and vulvovaginitis, unspecified 201101/10/2013 Unspecified symptom associated with female genit al organs 03/18/2012 03/26/2012 BV (bacterial vaginosis) 12/29/2011 012 Chronic vulvovaginitis 11/25/2011 2 Vulvar irritation 11/25/2011 01/10/2013 Vaginal irritation 11/07/2011 11/25/2011 Calculus of ureter 10/01/2008 11/10/2011 documented as of this encounter (statuses as of 11/29/2022) [facility] History of Past illness Narrative* Problem Noted Date Resolved Date CMV (cytomegalovirus) antibody positive 12/30/19 15 02/05/2015 SUPRV HIGH-RISK PREG NOS [V23.9] 09/24/2014 02/05/2015 IUGR (intrauterine growth restriction) 4 02/05/2015 Overview: 10/23/14 - weekly US with dopplers & BPP, growth US with mfm next week - KJ Ordered TORCH titers, repeat growth US In 3 weeks, severe early IUGR discussed increased risk for loss, poor outcomes. Support system deficit 06/02/2014 5 Overview: 06/02/2014Patient states the father of the baby is aware that she is , but doesn't want to be involved with her or her son. TKRN with adoption planned 06/02/2014 10/23/2014 Overview: 06/02/2014 Patient is considering adoption. [place] adoption guide given to patient. TKRN History of kidney stones 06/02/2014 015 Overview: 06/02/2014Patient has a history of kidney stones in 2007. TKRN History of hypoglycemia 06/02/2014 02/06/20 15 Overview: 06/02/2014Patient has a history of hypoglycemia. Discussed the importance of eating something every 2-3 hours. TKRN Constipation in 06/02/20142014 Overview: 06/02/2014 Patient has a history of constipation. Dietary considerations discussed. Patient is advised to avoid straining with bowel movements. TKRN Pelvic pain in female 03/07/2013 02/05/2015 Chronic vaginitis 01/10/2013 02/05/2015 Leukorrhea, not specified as infective 2 01/10/2013 Unspecified inflammatory dis ease of female pelvic organs and tissues 03/18/2012 03/26/2012 Vaginitis and vulvovaginitis, unspecified 201101/10/2013 Unspecified symptom associated with female genit al organs 03/18/2012 03/26/2012 BV (bacterial vaginosis) 12/29/2011 012 Chronic vulvovaginitis 11/25/2011 2 Vulvar irritation 11/25/2011 01/10/2013 Vaginal irritation 11/07/2011 11/25/2011 Calculus of ureter 10/01/2008 11/10/2011 documented as of this encounter (statuses as of 12/12/2022) [facility] History of Past illness Narrative* Problem Noted Date Resolved Date CMV (cytomegalovirus) antibody positive 12/30/19 15 02/05/2015 SUPRV HIGH-RISK PREG NOS [V23.9] 09/24/2014 02/05/2015 IUGR (intrauterine growth restriction) 4 02/05/2015 Overview: 10/23/14 - weekly US with dopplers & BPP, growth US with mfm next week - KJ Ordered TORCH titers, repeat growth US In 3 weeks, severe early IUGR discussed increased risk for loss, poor outcomes. Support system deficit 06/02/2014 5 Overview: 06/02/2014Patient states the father of the baby is aware that she is , but doesn't want to be involved with her or her son. TKRN with adoption planned 06/02/2014 10/23/2014 Overview: 06/02/2014 Patient is considering adoption. [place] adoption guide given to patient. TKRN History of kidney stones 06/02/2014 015 Overview: 06/02/2014Patient has a history of kidney stones in 2007. TKRN History of hypoglycemia 06/02/2014 02/06/20 Overview: 06/02/2014Patient has a history of hypoglycemia. Discussed the importance of eating something every 2-3 hours. TKRN Constipation in 06/02/20142014 Overview: 06/02/2014 Patient has a history of constipation. Dietary considerations discussed. Patient is advised to avoid straining with bowel movements. TKRN Pelvic pain in female 03/07/2013 02/05/2015 Chronic vaginitis 01/10/2013 02/05/2015 Leukorrhea, not specified as infective 2 01/10/2013 Unspecified inflammatory dis ease of female pelvic organs and tissues 03/18/2012 03/26/2012 Vaginitis and vulvovaginitis, unspecified 201101/10/2013 Unspecified symptom associated with female genit al organs 03/18/2012 03/26/2012 BV (bacterial vaginosis) 12/29/2011 012 Chronic vulvovaginitis 11/25/2011 2 Vulvar irritation 11/25/2011 01/10/2013 Vaginal irritation 11/07/2011 11/25/2011 Calculus of ureter 10/01/2008 11/10/2011 documented as of this encounter (statuses as of 12/27/2022) [facility] History of Past illness Narrative* Problem Noted Date Resolved Date CMV (cytomegalovirus) antibody positive 12/30/19 15 02/05/2015 SUPRV HIGH-RISK PREG NOS [V23.9] 09/24/2014 02/05/2015 IUGR (intrauterine growth restriction) 4 02/05/2015 Overview: 10/23/14 - weekly US with dopplers & BPP, growth US with mfm next week - KJ Ordered TORCH titers, repeat growth US In 3 weeks, severe early IUGR discussed increased risk for loss, poor outcomes. Support system deficit 06/02/2014 5 Overview: 06/02/2014Patient states the father of the baby is aware that she is , but doesn't want to be involved with her or her son. TKRN with adoption planned 06/02/2014 10/23/2014 Overview: 06/02/2014 Patient is considering adoption. [place] adoption guide given to patient. TKRN History of kidney stones 06/02/2014 015 Overview: 06/02/2014Patient has a history of kidney stones in 2007. TKRN History of hypoglycemia 06/02/2014 02/06/20 Overview: 06/02/2014Patient has a history of hypoglycemia. Discussed the importance of eating something every 2-3 hours. TKRN Constipation in 06/02/20142014 Overview: 06/02/2014 Patient has a history of constipation. Dietary considerations discussed. Patient is advised to avoid straining with bowel movements. TKRN Pelvic pain in female 03/07/2013 02/05/2015 Chronic vaginitis 01/10/2013 02/05/2015 Leukorrhea, not specified as infective 2 01/10/2013 Unspecified inflammatory dis ease of female pelvic organs and tissues 03/18/2012 03/26/2012 Vaginitis and vulvovaginitis, unspecified 201101/10/2013 Unspecified symptom associated with female genit al organs 03/18/2012 03/26/2012 BV (bacterial vaginosis) 12/29/2011 012 Chronic vulvovaginitis 11/25/2011 2 Vulvar irritation 11/25/2011 01/10/2013 Vaginal irritation 11/07/2011 11/25/2011 Calculus of ureter 10/01/2008 11/10/2011 documented as of this encounter (statuses as of 01/12/2023) [facility] History of Past illness Narrative* Problem Noted Date Resolved Date CMV (cytomegalovirus) antibody positive 12/30/1902/05/2015 SUPRV HIGH-RISK PREG NOS [V23.9] 09/24/2014 02/05/2015 IUGR (intrauterine growth restriction) 4 02/05/2015 Overview: 10/23/14 - weekly US with dopplers & BPP, growth US with mfm next week - KJ Ordered TORCH titers, repeat growth US In 3 weeks, severe early IUGR discussed increased risk for loss, poor outcomes. Support system deficit 06/02/2014 5 Overview: 06/02/2014Patient states the father of the baby is aware that she is , but doesn't want to be involved with her or her son. TKRN with adoption planned 06/02/2014 10/23/2014 Overview: 06/02/2014 Patient is considering adoption. [place] adoption guide given to patient. TKRN History of kidney stones 06/02/2014 015 Overview: 06/02/2014Patient has a history of kidney stones in 2007. TKRN History of hypoglycemia 06/02/2014 02/06/20 Overview: 06/02/2014Patient has a history of hypoglycemia. Discussed the importance of eating something every 2-3 hours. TKRN Constipation in 06/02/20142014 Overview: 06/02/2014 Patient has a history of constipation. Dietary considerations discussed. Patient is advised to avoid straining with bowel movements. TKRN Pelvic pain in female 03/07/2013 02/05/2015 Chronic vaginitis 01/10/2013 02/05/2015 Leukorrhea, not specified as infective 2 01/10/2013 Unspecified inflammatory dis ease of female pelvic organs and tissues 03/18/2012 03/26/2012 Vaginitis and vulvovaginitis, unspecified 201101/10/2013 Unspecified symptom associated with female genit al organs 03/18/2012 03/26/2012 BV (bacterial vaginosis) 12/29/2011 012 Chronic vulvovaginitis 11/25/2011 2 Vulvar irritation 11/25/2011 01/10/2013 Vaginal irritation 11/07/2011 11/25/2011 Calculus of ureter 10/01/2008 11/10/2011 documented as of this encounter (statuses as of 02/14/2023) [facility] History of Past illness Narrative* Problem Noted Date Resolved Date CMV (cytomegalovirus) antibody positive 12/30/19 15 02/05/2015 SUPRV HIGH-RISK PREG NOS [V23.9] 09/24/2014 02/05/2015 IUGR (intrauterine growth restriction) 4 02/05/2015 Overview: 10/23/14 - weekly US with dopplers & BPP, growth US with mfm next week - KJ Ordered TORCH titers, repeat growth US In 3 weeks, severe early IUGR discussed increased risk for loss, poor outcomes. Support system deficit 06/02/2014 5 Overview: 06/02/2014Patient states the father of the baby is aware that she is , but doesn't want to be involved with her or her son. TKRN with adoption planned 06/02/2014 10/23/2014 Overview: 06/02/2014 Patient is considering adoption. [place] adoption guide given to patient. TKRN History of kidney stones 06/02/2014 015 Overview: 06/02/2014Patient has a history of kidney stones in 2007. TKRN History of hypoglycemia 06/02/2014 02/06/20 15 Overview: 06/02/2014Patient has a history of hypoglycemia. Discussed the importance of eating something every 2-3 hours. TKRN Constipation in 06/02/20142014 Overview: 06/02/2014 Patient has a history of constipation. Dietary considerations discussed. Patient is advised to avoid straining with bowel movements. TKRN Pelvic pain in female 03/07/2013 02/05/2015 Chronic vaginitis 01/10/2013 02/05/2015 Leukorrhea, not specified as infective 2 01/10/2013 Unspecified inflammatory dis ease of female pelvic organs and tissues 03/18/2012 03/26/2012 Vaginitis and vulvovaginitis, unspecified 201101/10/2013 Unspecified symptom associated with female genit al organs 03/18/2012 03/26/2012 BV (bacterial vaginosis) 12/29/2011 012 Chronic vulvovaginitis 11/25/2011 2 Vulvar irritation 11/25/2011 01/10/2013 Vaginal irritation 11/07/2011 11/25/2011 Calculus of ureter 10/01/2008 11/10/2011 documented as of this encounter (statuses as of 03/14/2023) [facility]02-[facility]-2015 History of Past illness Narrative* Problem Noted Date Resolved Date CMV (cytomegalovirus) antibody positive 12/30/19 15 02/05/2015 SUPRV HIGH-RISK PREG NOS [V23.9] 09/24/2014 02/05/2015 IUGR (intrauterine growth restriction) 4 02/05/2015 Overview: 10/23/14 - weekly US with dopplers & BPP, growth US with mfm next week - KJ Ordered TORCH titers, repeat growth US In 3 weeks, severe early IUGR discussed increased risk for loss, poor outcomes. Support system deficit 06/02/2014 5 Overview: 06/02/2014Patient states the father of the baby is aware that she is , but doesn't want to be involved with her or her son. TKRN with adoption planned 06/02/2014 10/23/2014 Overview: 06/02/2014 Patient is considering adoption. [place] adoption guide given to patient. TKRN History of kidney stones 06/02/2014 015 Overview: 06/02/2014Patient has a history of kidney stones in 2007. TKRN History of hypoglycemia 06/02/2014 02/06/20 Overview: 06/02/2014Patient has a history of hypoglycemia. Discussed the importance of eating something every 2-3 hours. TKRN Constipation in 06/02/20142014 Overview: 06/02/2014 Patient has a history of constipation. Dietary considerations discussed. Patient is advised to avoid straining with bowel movements. TKRN Pelvic pain in female 03/07/2013 02/05/2015 Chronic vaginitis 01/10/2013 02/05/2015 Leukorrhea, not specified as infective 2 01/10/2013 Unspecified inflammatory dis ease of female pelvic organs and tissues 03/18/2012 03/26/2012 Vaginitis and vulvovaginitis, unspecified 201101/10/2013 Unspecified symptom associated with female genit al organs 03/18/2012 03/26/2012 BV (bacterial vaginosis) 12/29/2011 012 Chronic vulvovaginitis 11/25/2011 2 Vulvar irritation 11/25/2011 01/10/2013 Vaginal irritation 11/07/2011 11/25/2011 Calculus of ureter 10/01/2008 11/10/2011 documented as of this encounter (statuses as of 03/14/2023) [facility] History of Past illness Narrative* Problem Noted Date Resolved Date CMV (cytomegalovirus) antibody positive 12/30/19 15 02/05/2015 SUPRV HIGH-RISK PREG NOS [V23.9] 09/24/2014 02/05/2015 IUGR (intrauterine growth restriction) 4 02/05/2015 Overview: 10/23/14 - weekly US with dopplers & BPP, growth US with mfm next week - KJ Ordered TORCH titers, repeat growth US In 3 weeks, severe early IUGR discussed increased risk for loss, poor outcomes. Support system deficit 06/02/2014 5 Overview: 06/02/2014Patient states the father of the baby is aware that she is , but doesn't want to be involved with her or her son. TKRN with adoption planned 06/02/2014 10/23/2014 Overview: 06/02/2014 Patient is considering adoption. [place] adoption guide given to patient. TKRN History of kidney stones 06/02/2014 015 Overview: 06/02/2014Patient has a history of kidney stones in 2007. TKRN History of hypoglycemia 06/02/2014 02/06/20 Overview: 06/02/2014Patient has a history of hypoglycemia. Discussed the importance of eating something every 2-3 hours. TKRN Constipation in 06/02/20142014 Overview: 06/02/2014 Patient has a history of constipation. Dietary considerations discussed. Patient is advised to avoid straining with bowel movements. TKRN Pelvic pain in female 03/07/2013 02/05/2015 Chronic vaginitis 01/10/2013 02/05/2015 Leukorrhea, not specified as infective 2 01/10/2013 Unspecified inflammatory dis ease of female pelvic organs and tissues 03/18/2012 03/26/2012 Vaginitis and vulvovaginitis, unspecified 201101/10/2013 Unspecified symptom associated with female genit al organs 03/18/2012 03/26/2012 BV (bacterial vaginosis) 12/29/2011 012 Chronic vulvovaginitis 11/25/2011 2 Vulvar irritation 11/25/2011 01/10/2013 Vaginal irritation 11/07/2011 11/25/2011 Calculus of ureter 10/01/2008 11/10/2011 documented as of this encounter (statuses as of 03/21/2023) [facility] History of Past illness Narrative* Problem Noted Date Resolved Date CMV (cytomegalovirus) antibody positive 12/30/19 15 02/05/2015 SUPRV HIGH-RISK PREG NOS [V23.9] 09/24/2014 02/05/2015 IUGR (intrauterine growth restriction) 4 02/05/2015 Overview: 10/23/14 - weekly US with dopplers & BPP, growth US with mfm next week - KJ Ordered TORCH titers, repeat growth US In 3 weeks, severe early IUGR discussed increased risk for loss, poor outcomes. Support system deficit 06/02/2014 5 Overview: 06/02/2014Patient states the father of the baby is aware that she is , but doesn't want to be involved with her or her son. TKRN with adoption planned 06/02/2014 10/23/2014 Overview: 06/02/2014 Patient is considering adoption. [place] adoption guide given to patient. TKRN History of kidney stones 06/02/2014 015 Overview: 06/02/2014Patient has a history of kidney stones in 2007. TKRN History of hypoglycemia 06/02/2014 02/06/20 15 Overview: 06/02/2014Patient has a history of hypoglycemia. Discussed the importance of eating something every 2-3 hours. TKRN Constipation in 06/02/20142014 Overview: 06/02/2014 Patient has a history of constipation. Dietary considerations discussed. Patient is advised to avoid straining with bowel movements. TKRN Pelvic pain in female 03/07/2013 02/05/2015 Chronic vaginitis 01/10/2013 02/05/2015 Leukorrhea, not specified as infective 2 01/10/2013 Unspecified inflammatory dis ease of female pelvic organs and tissues 03/18/2012 03/26/2012 Vaginitis and vulvovaginitis, unspecified 201101/10/2013 Unspecified symptom associated with female genit al organs 03/18/2012 03/26/2012 BV (bacterial vaginosis) 12/29/2011 012 Chronic vulvovaginitis 11/25/2011 2 Vulvar irritation 11/25/2011 01/10/2013 Vaginal irritation 11/07/2011 11/25/2011 Calculus of ureter 10/01/2008 11/10/2011 documented as of this encounter (statuses as of 04/01/2023) [facility] History of Past illness Narrative* Problem Noted Date Resolved Date CMV (cytomegalovirus) antibody positive 12/30/19 15 02/05/2015 SUPRV HIGH-RISK PREG NOS [V23.9] 09/24/2014 02/05/2015 IUGR (intrauterine growth restriction) 4 02/05/2015 Overview: 10/23/14 - weekly US with dopplers & BPP, growth US with mfm next week - KJ Ordered TORCH titers, repeat growth US In 3 weeks, severe early IUGR discussed increased risk for loss, poor outcomes. Support system deficit 06/02/2014 5 Overview: 06/02/2014Patient states the father of the baby is aware that she is , but doesn't want to be involved with her or her son. TKRN with adoption planned 06/02/2014 10/23/2014 Overview: 06/02/2014 Patient is considering adoption. [place] adoption guide given to patient. TKRN History of kidney stones 06/02/2014 015 Overview: 06/02/2014Patient has a history of kidney stones in 2007. TKRN History of hypoglycemia 06/02/2014 02/06/20 Overview: 06/02/2014Patient has a history of hypoglycemia. Discussed the importance of eating something every 2-3 hours. TKRN Constipation in 06/02/20142014 Overview: 06/02/2014 Patient has a history of constipation. Dietary considerations discussed. Patient is advised to avoid straining with bowel movements. TKRN Pelvic pain in female 03/07/2013 02/05/2015 Chronic vaginitis 01/10/2013 02/05/2015 Leukorrhea, not specified as infective 2 01/10/2013 Unspecified inflammatory dis ease of female pelvic organs and tissues 03/18/2012 03/26/2012 Vaginitis and vulvovaginitis, unspecified 201101/10/2013 Unspecified symptom associated with female genit al organs 03/18/2012 03/26/2012 BV (bacterial vaginosis) 12/29/2011 012 Chronic vulvovaginitis 11/25/2011 2 Vulvar irritation 11/25/2011 01/10/2013 Vaginal irritation 11/07/2011 11/25/2011 Calculus of ureter 10/01/2008 11/10/2011 documented as of this encounter (statuses as of 05/23/2023) [facility] History of Past illness Narrative* Problem Noted Date Diagnosed Date Resolved Date CMV (cytomegalovirus) antibody positive 12/30/2014 02/05/2015 SUPRV HIGH-RISK PREG NOS [V23.9] 09/24/2014 02/05/2015 IUGR (intrauterine growth restriction) 09/24/2014 02/05/2015 Overview: 10/23/14 - weekly US with dopplers & BPP, growth US with mfm next week - KJ Ordered TORCH titers, repeat growth US In 3 weeks, severe early IUGR discussed increased risk for loss, poor outcomes. Support system deficit 06/02/201402/05 Overview: 06/02/2014Patient states the father of the baby is aware that she is , but doesn't want to be involved with her or her son. TKRN with adoption planned 06/02/2014 10/23/2014 Overview: 06/02/2014 Patient is considering adoption. [place] adoption guide given to patient. TKRN History of kidney stones 06/02/2014 Overview: 06/02/2014Patient has a history of kidney stones in 2007. TKRN History of hypoglycemia 06/02/201401/18 Overview: 06/02/2014Patient has a history of hypoglycemia. Discussed the importance of eating something every 2-3 hours. TKRN Constipation in 06/02/2014 Overview: 06/02/2014 Patient has a history of constipation. Dietary considerations discussed. Patient is advised to avoid straining with bowel movements. TKRN Pelvic pain in female 03/07/20132014 Chronic vaginitis 01/10/2013 02/05/2015 Leukorrhea, not specified as infective 03/18/2012 01/10/2013 Unspecified inflammatory dis ease of female pelvic organs and tissues 03/18/2012 03/26/2012 Vaginitis and vulvovaginitis, unspecified 03/18/2012 01/10/2013 Unspecified symptom associat ed with female genital organs 03/18/2012 03/26/2012 BV (bacterial vaginosis) 12/29/201106/2012 Chronic vulvovaginitis 11/25/201111/25 Vulvar irritation 11/25/2011 01/10/2013 Vaginal irritation 11/07/2011 2 Calculus of ureter 10/01/2008 1 documented as of this encounter (statuses as of 06/02/2023) [facility] History of Past illness Narrative* Problem Noted Date Diagnosed Date Resolved Date CMV (cytomegalovirus) antibody positive 12/30/2014 02/05/2015 SUPRV HIGH-RISK PREG NOS [V23.9] 09/24/2014 02/05/2015 IUGR (intrauterine growth restriction) 09/24/2014 02/05/2015 Overview: 10/23/14 - weekly US with dopplers & BPP, growth US with mfm next week - KJ Ordered TORCH titers, repeat growth US In 3 weeks, severe early IUGR discussed increased risk for loss, poor outcomes. Support system deficit 06/02/201402/05 Overview: 06/02/2014Patient states the father of the baby is aware that she is , but doesn't want to be involved with her or her son. TKRN with adoption planned 06/02/2014 10/23/2014 Overview: 06/02/2014 Patient is considering adoption. [place] adoption guide given to patient. TKRN History of kidney stones 06/02/2014 Overview: 06/02/2014Patient has a history of kidney stones in 2007. TKRN History of hypoglycemia 06/02/201401/18 Overview: 06/02/2014Patient has a history of hypoglycemia. Discussed the importance of eating something every 2-3 hours. TKRN Constipation in 06/02/2014 Overview: 06/02/2014 Patient has a history of constipation. Dietary considerations discussed. Patient is advised to avoid straining with bowel movements. TKRN Pelvic pain in female 03/07/20132014 Chronic vaginitis 01/10/2013 02/05/2015 Leukorrhea, not specified as infective 03/18/2012 01/10/2013 Unspecified inflammatory dis ease of female pelvic organs and tissues 03/18/2012 03/26/2012 Vaginitis and vulvovaginitis, unspecified 03/18/2012 01/10/2013 Unspecified symptom associat ed with female genital organs 03/18/2012 03/26/2012 BV (bacterial vaginosis) 12/29/201106/2012 Chronic vulvovaginitis 11/25/201111/25 Vulvar irritation 11/25/2011 01/10/2013 Vaginal irritation 11/07/2011 2 Calculus of ureter 10/01/2008 1 documented as of this encounter (statuses as of 06/03/2023) [facility] History of Past illness Narrative* Problem Noted Date Diagnosed Date Resolved Date CMV (cytomegalovirus) antibody positive 12/30/2014 02/05/2015 SUPRV HIGH-RISK PREG NOS [V23.9] 09/24/2014 02/05/2015 IUGR (intrauterine growth restriction) 09/24/2014 02/05/2015 Overview: 10/23/14 - weekly US with dopplers & BPP, growth US with mfm next week - KJ Ordered TORCH titers, repeat growth US In 3 weeks, severe early IUGR discussed increased risk for loss, poor outcomes. Support system deficit 06/02/201402/05 Overview: 06/02/2014Patient states the father of the baby is aware that she is , but doesn't want to be involved with her or her son. TKRN with adoption planned 06/02/2014 10/23/2014 Overview: 06/02/2014 Patient is considering adoption. [place] adoption guide given to patient. TKRN History of kidney stones 06/02/2014 Overview: 06/02/2014Patient has a history of kidney stones in 2007. TKRN History of hypoglycemia 06/02/201401/18 Overview: 06/02/2014Patient has a history of hypoglycemia. Discussed the importance of eating something every 2-3 hours. TKRN Constipation in 06/02/2014 Overview: 06/02/2014 Patient has a history of constipation. Dietary considerations discussed. Patient is advised to avoid straining with bowel movements. TKRN Pelvic pain in female 03/07/20132014 Chronic vaginitis 01/10/2013 02/05/2015 Leukorrhea, not specified as infective 03/18/2012 01/10/2013 Unspecified inflammatory dis ease of female pelvic organs and tissues 03/18/2012 03/26/2012 Vaginitis and vulvovaginitis, unspecified 03/18/2012 01/10/2013 Unspecified symptom associat ed with female genital organs 03/18/2012 03/26/2012 BV (bacterial vaginosis) 12/29/201106/2012 Chronic vulvovaginitis 11/25/201111/25 Vulvar irritation 11/25/2011 01/10/2013 Vaginal irritation 11/07/2011 2 Calculus of ureter 10/01/2008 1 documented as of this encounter (statuses as of 06/06/2023) [facility] History of Past illness Narrative* Problem Noted Date Diagnosed Date Resolved Date CMV (cytomegalovirus) antibody positive 12/30/2014 02/05/2015 SUPRV HIGH-RISK PREG NOS [V23.9] 09/24/2014 02/05/2015 IUGR (intrauterine growth restriction) 09/24/2014 02/05/2015 Overview: 10/23/14 - weekly US with dopplers & BPP, growth US with mfm next week - KJ Ordered TORCH titers, repeat growth US In 3 weeks, severe early IUGR discussed increased risk for loss, poor outcomes. Support system deficit 06/02/201402/05 Overview: 06/02/2014Patient states the father of the baby is aware that she is , but doesn't want to be involved with her or her son. TKRN with adoption planned 06/02/2014 10/23/2014 Overview: 06/02/2014 Patient is considering adoption. [place] adoption guide given to patient. TKRN History of kidney stones 06/02/2014 Overview: 06/02/2014Patient has a history of kidney stones in 2007. TKRN History of hypoglycemia 06/02/201401/18 Overview: 06/02/2014Patient has a history of hypoglycemia. Discussed the importance of eating something every 2-3 hours. TKRN Constipation in 06/02/2014 Overview: 06/02/2014 Patient has a history of constipation. Dietary considerations discussed. Patient is advised to avoid straining with bowel movements. TKRN Pelvic pain in female 03/07/20132014 Chronic vaginitis 01/10/2013 02/05/2015 Leukorrhea, not specified as infective 03/18/2012 01/10/2013 Unspecified inflammatory dis ease of female pelvic organs and tissues 03/18/2012 03/26/2012 Vaginitis and vulvovaginitis, unspecified 03/18/2012 01/10/2013 Unspecified symptom associat ed with female genital organs 03/18/2012 03/26/2012 BV (bacterial vaginosis) 12/29/201106/2012 Chronic vulvovaginitis 11/25/201111/25 Vulvar irritation 11/25/2011 01/10/2013 Vaginal irritation 11/07/2011 2 Calculus of ureter 10/01/2008 1 documented as of this encounter (statuses as of 06/07/2023) [facility] History of Past illness Narrative* Problem Noted Date Diagnosed Date Resolved Date CMV (cytomegalovirus) antibody positive 12/30/2014 02/05/2015 SUPRV HIGH-RISK PREG NOS [V23.9] 09/24/2014 02/05/2015 IUGR (intrauterine growth restriction) 09/24/2014 02/05/2015 Overview: 10/23/14 - weekly US with dopplers & BPP, growth US with mfm next week - KJ Ordered TORCH titers, repeat growth US In 3 weeks, severe early IUGR discussed increased risk for loss, poor outcomes. Support system deficit 06/02/201402/05 Overview: 06/02/2014Patient states the father of the baby is aware that she is , but doesn't want to be involved with her or her son. TKRN with adoption planned 06/02/2014 10/23/2014 Overview: 06/02/2014 Patient is considering adoption. [place] adoption guide given to patient. TKRN History of kidney stones 06/02/2014 Overview: 06/02/2014Patient has a history of kidney stones in 2007. TKRN History of hypoglycemia 06/02/201401/18 Overview: 06/02/2014Patient has a history of hypoglycemia. Discussed the importance of eating something every 2-3 hours. TKRN Pelvic pain in female 03/07/20132014 Chronic vaginitis 01/10/2013 02/05/2015 Leukorrhea, not specified as infective 03/18/2012 01/10/2013 Unspecified inflammatory dis ease of female pelvic organs and tissues 03/18/2012 03/26/2012 Vaginitis and vulvovaginitis, unspecified 03/18/2012 01/10/2013 Unspecified symptom associat ed with female genital organs 03/18/2012 03/26/2012 BV (bacterial vaginosis) 12/29/201106/2012 Chronic vulvovaginitis 11/25/201111/25 Vulvar irritation 11/25/2011 01/10/2013 Vaginal irritation 11/07/2011 2 Calculus of ureter 10/01/2008 1 documented as of this encounter (statuses as of 08/09/2023) [facility] History of Past illness Narrative* Problem Noted Date Diagnosed Date Resolved Date CMV (cytomegalovirus) antibody positive 12/30/2014 02/05/2015 SUPRV HIGH-RISK PREG NOS [V23.9] 09/24/2014 02/05/2015 IUGR (intrauterine growth restriction) 09/24/2014 02/05/2015 Overview: 10/23/14 - weekly US with dopplers & BPP, growth US with mfm next week - KJ Ordered TORCH titers, repeat growth US In 3 weeks, severe early IUGR discussed increased risk for loss, poor outcomes. Support system deficit 06/02/201402/05 Overview: 06/02/2014Patient states the father of the baby is aware that she is , but doesn't want to be involved with her or her son. TKRN with adoption planned 06/02/2014 10/23/2014 Overview: 06/02/2014 Patient is considering adoption. [place] adoption guide given to patient. TKRN History of kidney stones 06/02/2014 Overview: 06/02/2014Patient has a history of kidney stones in 2007. TKRN History of hypoglycemia 06/02/201401/18 Overview: 06/02/2014Patient has a history of hypoglycemia. Discussed the importance of eating something every 2-3 hours. TKRN Pelvic pain in female 03/07/20132014 Chronic vaginitis 01/10/2013 02/05/2015 Leukorrhea, not specified as infective 03/18/2012 01/10/2013 Unspecified inflammatory dis ease of female pelvic organs and tissues 03/18/2012 03/26/2012 Vaginitis and vulvovaginitis, unspecified 03/18/2012 01/10/2013 Unspecified symptom associat ed with female genital organs 03/18/2012 03/26/2012 BV (bacterial vaginosis) 12/29/201106/2012 Chronic vulvovaginitis 11/25/201111/25 Vulvar irritation 11/25/2011 01/10/2013 Vaginal irritation 11/07/2011 2 Calculus of ureter 10/01/2008 1 documented as of this encounter (statuses as of 10/06/2023) [facility] History of Past illness Narrative* Problem Noted Date Diagnosed Date Resolved Date CMV (cytomegalovirus) antibody positive 12/30/2014 02/05/2015 SUPRV HIGH-RISK PREG NOS [V23.9] 09/24/2014 02/05/2015 IUGR (intrauterine growth restriction) 09/24/2014 02/05/2015 Overview: 10/23/14 - weekly US with dopplers & BPP, growth US with mfm next week - KJ Ordered TORCH titers, repeat growth US In 3 weeks, severe early IUGR discussed increased risk for loss, poor outcomes. Support system deficit 06/02/201402/05 Overview: 06/02/2014Patient states the father of the baby is aware that she is , but doesn't want to be involved with her or her son. TKRN with adoption planned 06/02/2014 10/23/2014 Overview: 06/02/2014 Patient is considering adoption. [place] adoption guide given to patient. TKRN History of kidney stones 06/02/2014 Overview: 06/02/2014Patient has a history of kidney stones in 2007. TKRN History of hypoglycemia 06/02/2014 03 Overview: 06/02/2014Patient has a history of hypoglycemia. Discussed the importance of eating something every 2-3 hours. TKRN Pelvic pain in female 03/07/20132014 Chronic vaginitis 01/10/2013 02/05/2015 Leukorrhea, not specified as infective 03/18/2012 01/10/2013 Unspecified inflammatory dis ease of female pelvic organs and tissues 03/18/2012 03/26/2012 Vaginitis and vulvovaginitis, unspecified 03/18/2012 01/10/2013 Unspecified symptom associat ed with female genital organs 03/18/2012 03/26/2012 BV (bacterial vaginosis) 12/29/201106/2012 Chronic vulvovaginitis 11/25/201111/25 Vulvar irritation 11/25/2011 01/10/2013 Vaginal irritation 11/07/2011 2 Calculus of ureter 10/01/2008 1 documented as of this encounter (statuses as of 10/10/2023) [facility] History of Past illness Narrative* Problem Noted Date Diagnosed Date Resolved Date CMV (cytomegalovirus) antibody positive 12/30/2014 02/05/2015 SUPRV HIGH-RISK PREG NOS [V23.9] 09/24/2014 02/05/2015 IUGR (intrauterine growth restriction) 09/24/2014 02/05/2015 Overview: 10/23/14 - weekly US with dopplers & BPP, growth US with mfm next week - KJ Ordered TORCH titers, repeat growth US In 3 weeks, severe early IUGR discussed increased risk for loss, poor outcomes. Support system deficit 06/02/201402/05 Overview: 06/02/2014Patient states the father of the baby is aware that she is , but doesn't want to be involved with her or her son. TKRN with adoption planned 06/02/2014 10/23/2014 Overview: 06/02/2014 Patient is considering adoption. [place] adoption guide given to patient. TKRN History of kidney stones 06/02/2014 Overview: 06/02/2014Patient has a history of kidney stones in 2007. TKRN History of hypoglycemia 06/02/201401/18 Overview: 06/02/2014Patient has a history of hypoglycemia. Discussed the importance of eating something every 2-3 hours. TKRN Pelvic pain in female 03/07/20132014 Chronic vaginitis 01/10/2013 02/05/2015 Leukorrhea, not specified as infective 03/18/2012 01/10/2013 Unspecified inflammatory dis ease of female pelvic organs and tissues 03/18/2012 03/26/2012 Vaginitis and vulvovaginitis, unspecified 03/18/2012 01/10/2013 Unspecified symptom associat ed with female genital organs 03/18/2012 03/26/2012 BV (bacterial vaginosis) 12/29/201106/2012 Chronic vulvovaginitis 11/25/201111/25 Vulvar irritation 11/25/2011 01/10/2013 Vaginal irritation 11/07/2011 2 Calculus of ureter 10/01/2008 1 documented as of this encounter (statuses as of 10/24/2023) [facility] History of Past illness Narrative* Problem Noted Date Diagnosed Date Resolved Date CMV (cytomegalovirus) antibody positive 12/30/2014 02/05/2015 SUPRV HIGH-RISK PREG NOS [V23.9] 09/24/2014 02/05/2015 IUGR (intrauterine growth restriction) 09/24/2014 02/05/2015 Overview: 10/23/14 - weekly US with dopplers & BPP, growth US with mfm next week - KJ Ordered TORCH titers, repeat growth US In 3 weeks, severe early IUGR discussed increased risk for loss, poor outcomes. Support system deficit 06/02/201402/05 Overview: 06/02/2014Patient states the father of the baby is aware that she is , but doesn't want to be involved with her or her son. TKRN with adoption planned 06/02/2014 10/23/2014 Overview: 06/02/2014 Patient is considering adoption. [place] adoption guide given to patient. TKRN History of kidney stones 06/02/2014 Overview: 06/02/2014Patient has a history of kidney stones in 2007. TKRN History of hypoglycemia 06/02/201401/18 Overview: 06/02/2014Patient has a history of hypoglycemia. Discussed the importance of eating something every 2-3 hours. TKRN Pelvic pain in female 03/07/20132014 Chronic vaginitis 01/10/2013 02/05/2015 Leukorrhea, not specified as infective 03/18/2012 01/10/2013 Unspecified inflammatory dis ease of female pelvic organs and tissues 03/18/2012 03/26/2012 Vaginitis and vulvovaginitis, unspecified 03/18/2012 01/10/2013 Unspecified symptom associat ed with female genital organs 03/18/2012 03/26/2012 BV (bacterial vaginosis) 12/29/201106/2012 Chronic vulvovaginitis 11/25/201111/25 Vulvar irritation 11/25/2011 01/10/2013 Vaginal irritation 11/07/2011 2 Calculus of ureter 10/01/2008 1 documented as of this encounter (statuses as of 10/24/2023) [facility] History of Past illness Narrative* Problem Noted Date Diagnosed Date Resolved Date CMV (cytomegalovirus) antibody positive 12/30/2014 02/05/2015 SUPRV HIGH-RISK PREG NOS [V23.9] 09/24/2014 02/05/2015 IUGR (intrauterine growth restriction) 09/24/2014 02/05/2015 Overview: 10/23/14 - weekly US with dopplers & BPP, growth US with mfm next week - KJ Ordered TORCH titers, repeat growth US In 3 weeks, severe early IUGR discussed increased risk for loss, poor outcomes. Support system deficit 06/02/201402/05 Overview: 06/02/2014Patient states the father of the baby is aware that she is , but doesn't want to be involved with her or her son. TKRN with adoption planned 06/02/2014 10/23/2014 Overview: 06/02/2014 Patient is considering adoption. [place] adoption guide given to patient. TKRN History of kidney stones 06/02/2014 Overview: 06/02/2014Patient has a history of kidney stones in 2007. TKRN History of hypoglycemia 06/02/201401/18 Overview: 06/02/2014Patient has a history of hypoglycemia. Discussed the importance of eating something every 2-3 hours. TKRN Pelvic pain in female 03/07/20132014 Chronic vaginitis 01/10/2013 02/05/2015 Leukorrhea, not specified as infective 03/18/2012 01/10/2013 Unspecified inflammatory dis ease of female pelvic organs and tissues 03/18/2012 03/26/2012 Vaginitis and vulvovaginitis, unspecified 03/18/2012 01/10/2013 Unspecified symptom associat ed with female genital organs 03/18/2012 03/26/2012 BV (bacterial vaginosis) 12/29/201106/2012 Chronic vulvovaginitis 11/25/201111/25 Vulvar irritation 11/25/2011 01/10/2013 Vaginal irritation 11/07/2011 2 Calculus of ureter 10/01/2008 1 documented as of this encounter (statuses as of 10/24/2023) [facility] History of Past illness Narrative* Problem Noted Date Diagnosed Date Resolved Date CMV (cytomegalovirus) antibody positive 12/30/2014 02/05/2015 SUPRV HIGH-RISK PREG NOS [V23.9] 09/24/2014 02/05/2015 IUGR (intrauterine growth restriction) 09/24/2014 02/05/2015 Overview: 10/23/14 - weekly US with dopplers & BPP, growth US with mfm next week - KJ Ordered TORCH titers, repeat growth US In 3 weeks, severe early IUGR discussed increased risk for loss, poor outcomes. Support system deficit 06/02/201402/05 Overview: 06/02/2014Patient states the father of the baby is aware that she is , but doesn't want to be involved with her or her son. TKRN with adoption planned 06/02/2014 10/23/2014 Overview: 06/02/2014 Patient is considering adoption. [place] adoption guide given to patient. TKRN History of kidney stones 06/02/2014 Overview: 06/02/2014Patient has a history of kidney stones in 2007. TKRN History of hypoglycemia 06/02/201401/18 Overview: 06/02/2014Patient has a history of hypoglycemia. Discussed the importance of eating something every 2-3 hours. TKRN Pelvic pain in female 03/07/20132014 Chronic vaginitis 01/10/2013 02/05/2015 Leukorrhea, not specified as infective 03/18/2012 01/10/2013 Unspecified inflammatory dis ease of female pelvic organs and tissues 03/18/2012 03/26/2012 Vaginitis and vulvovaginitis, unspecified 03/18/2012 01/10/2013 Unspecified symptom associat ed with female genital organs 03/18/2012 03/26/2012 BV (bacterial vaginosis) 12/29/201106/2012 Chronic vulvovaginitis 11/25/201111/25 Vulvar irritation 11/25/2011 01/10/2013 Vaginal irritation 11/07/2011 2 Calculus of ureter 10/01/2008 1 documented as of this encounter (statuses as of 11/01/2023) [facility] Vaginal discharge- Primary Leukorrhea, not specified as infective Vaginal irritation Unspecified noninflammatory disorder of vagina [facility] Diagnosis Strep pharyngitis- Primary Streptococcal sore throat URI, acute Acute upper respiratory infections of unspecified site [facility] Diagnosis Vaginal itching- Primary Pruritus of genital organs Vaginal discharge Leukorrhea, not specified as infective documented in this encounter [facility] note* Diagnosis Vaginal discharge- Primary Leukorrhea, not specified as infective documented in this encounter [facility] note* Diagnosis Vaginal irritation- Primary Unspecified noninflammatory disorder of vagina documented in this encounter [facility] note* Diagnosis Vaginal discharge- Primary Leukorrhea, not specified as infective Vaginal irritation Unspecified noninflammatory disorder of vagina documented in this encounter [facility] note* Diagnosis Vaginal discharge- Primary Leukorrhea, not specified as infective documented in this encounter [facility] note* Diagnosis Pain- Primary Generalized pain documented in this encounter [facility] note* Diagnosis Sore throat- Primary Acute pharyngitis documented in this encounter [facility] note* Diagnosis Acute vaginitis- Primary Vaginitis and vulvovaginitis, unspecified documented in this encounter [facility] note* Diagnosis Pain with urination- Primary Renal colic documented in this encounter [facility] note* Diagnosis Urinary tract infection without hematuria, site unspecified- Primary BV (bacterial vaginosis) Vaginitis and vulvovaginitis, unspecified Vagina itching Pruritus of genital organs documented in this encounter [facility] note* Diagnosis Acute vaginitis- Primary Vaginitis and vulvovaginitis, unspecified Constipation, unspecified constipation type documented in this encounter [facility] note* Diagnosis Encounter for gynecological examination (general) (routine) without abnormal findings Encounter for screening mammogram for breast cancer Extremely dense tissue of both breasts on mammography documented in this encounter [facility] note* Diagnosis Abnormal mammogram Abnormal mammogram, unspecified documented in this encounter [facility] note* Diagnosis Abnormal mammogram Abnormal mammogram, unspecified documented in this encounter [facility] note* Diagnosis Abnormal ultrasound of breast- Primary Other (abnormal) findings on radiological examination of breast documented in this encounter [facility] for referral (narrative)* Diagnostic Procedure Only (Urgent) - Closed Specialty Diagnoses / Procedures Referred By Darryl t Referred To Contact XR IMAGING Diagnoses Pain Procedures XR HAND GENERAL 3V PA/LAT/OBL LEFT RADEX HAND MINIMUM 3 VIEWS Lanie Nowak APRN.TURN MACHINE OPERATOR [address] [place] [address] Xr Imaging Referral ID Status Reason Start Date Expiration Date V isits Requested Visits Authorized [id number] Closed Auto-Generate d Referral 03/20/2023 04/18/2024 1 1 [facility] for referral (narrative)* Diagnostic Procedure Only (Routine) - Closed Specialty Diagnoses / Procedures Referred By Contac t Referred To Contact BR IMAGING Diagnoses Abnormal mammogram Procedures US BREAST LTD RIGHT US BREAST UNI REAL TIME WITH IMAGE LIMITED Ivon Glaser APRN.TURN MACHINE OPERATOR [address] [place] [place] [address] [facility] [address] [place] [address] Referral ID Status Reason Start Date Expiration Date V isits Requested Visits Authorized [id number] Closed Auto-Generate d Referral 10/08/2023 11/06/2024 1 1 * Diagnostic Procedure Only (Routine) - Closed Specialty Diagnoses / Procedures Referred By Darryl t Referred To Contact BR IMAGING Diagnoses Abnormal mammogram Procedures US BREAST LTD LEFT US BREAST UNI REAL TIME WITH IMAGE LIMITED Ivon Glaser APRN.TURN MACHINE OPERATOR [address] [place] [place] [address] [facility] [address] [facility] [place] [address] Referral ID Status Reason Start Date Expiration Date V isits Requested Visits Authorized [id number] Closed Auto-Generate d Referral 10/08/2023 11/06/2024 1 1 [facility] for referral (narrative)* Diagnostic Procedure Only (Routine) - Pending Review Specialty Diagnoses / Procedures Referred By Contac t Referred To Contact BR IMAGING Diagnoses Abnormal ultrasound of breast Procedures US BIOPSY BREAST RIGHT BX BREAST W/DEVICE 1ST LESION ULTRASOUND Suzanne Campbell MD [address] [place] [address] [facility] [address] [place] [address] Referral ID Status Reason Start Date Expiration Date Visits Requested Visits Authorized [id number] Pending Review Auto-Generat ed Referral 3 11/28/2024 1 1 [facility] for visit Narrative* Diagnostic Procedure Only (Routine) - Closed Specialty Diagnoses / Procedures Referred By Darryl chakraborty Referred To Contact BR IMAGING Diagnoses Encounter for gynecological examination (general) (routine) without abnormal findings Encounter for screening mammogram for breast cancer Extremely dense tissue of both breasts on mammography Procedures LOUANN SCREENING W MARIANNE SCREENING DIGITAL BREAST TOMOSYNTHESIS BI SCREENING MAMMOGRAPHY BI 2-VIEW BREAST INC Ivon Moore MEDICAL LAB SCIENTIST.TURN MACHINE OPERATOR [address] [place] [address] [facility] [address] [place] [phone] Referral ID Status Reason Start Date Expiration Date V isits Requested Visits Authorized [id number] Closed Auto-Generate d Referral 09/20/2023 10/19/2024 1 1 [facility] for visit Narrative* Diagnostic Procedure Only (Routine) - Closed Specialty Diagnoses / Procedures Referred By Darryl chakraborty Referred To Contact BR IMAGING Diagnoses Abnormal mammogram Procedures LOUANN DIAGNOSTIC RIGHT DIAGNOSTIC MAMMOGRAPHY COMPUTER-AIDED [facility] [place] Anuradha Colvin, MEDICAL LAB SCIENTIST.TURN MACHINE OPERATOR [address] [place] [address] [facility] [address] [place] [phone] Referral ID Status Reason Start Date Expiration Date V isits Requested Visits Authorized [id number] Closed Auto-Generate d Referral 10/15/2023 11/13/2024 1 1 [facility] Summary Purpose Family History No Family History Records Found Advance Directives No Advanced Directives Records Found Additional Source Comments Source Comments (unrecognize d section and content) In the event this informatio n is protected by the Federal Confidentiality of Alcohol and Drug Abuse Patient Records regulations: The Federal rules restrict any use of the information to criminally investigate or prosecute any alcohol or drug abuse patient.[facility] the event this information is protected by the Federal Confidentiality of Alcohol and Drug Abuse Patient Records regulations: The Federal rules restrict any use of the information to criminally investigate or prosecute any alcohol or drug abuse patient.[facility] the event this information is protected by the Federal Confidentiality of Alcohol and Drug Abuse Patient Records regulations: The Federal rules restrict any use of the information to criminally investigate or prosecute any alcohol or drug abuse patient.[facility] the event this information is protected by the Federal Confidentiality of Alcohol and Drug Abuse Patient Records regulations: The Federal rules restrict any use of the information to criminally investigate or prosecute any alcohol or drug abuse patient.[facility] the event this information is protected by the Federal Confidentiality of Alcohol and Drug Abuse Patient Records regulations: The Federal rules restrict any use of the information to criminally investigate or prosecute any alcohol or drug abuse patient.[facility] the event this information is protected by the Federal Confidentiality of Alcohol and Drug Abuse Patient Records regulations: The Federal rules restrict any use of the information to criminally investigate or prosecute any alcohol or drug abuse patient.[facility] the event this information is protected by the Federal Confidentiality of Alcohol and Drug Abuse Patient Records regulations: The Federal rules restrict any use of the information to criminally investigate or prosecute any alcohol or drug abuse patient.[facility] the event this information is protected by the Federal Confidentiality of Alcohol and Drug Abuse Patient Records regulations: The Federal rules restrict any use of the information to criminally investigate or prosecute any alcohol or drug abuse patient.[facility] the event this information is protected by the Federal Confidentiality of Alcohol and Drug Abuse Patient Records regulations: The Federal rules restrict any use of the information to criminally investigate or prosecute any alcohol or drug abuse patient.[facility] the event this information is protected by the Federal Confidentiality of Alcohol and Drug Abuse Patient Records regulations: The Federal rules restrict any use of the information to criminally investigate or prosecute any alcohol or drug abuse patient.[facility] the event this information is protected by the Federal Confidentiality of Alcohol and Drug Abuse Patient Records regulations: The Federal rules restrict any use of the information to criminally investigate or prosecute any alcohol or drug abuse patient.[facility] the event this information is protected by the Federal Confidentiality of Alcohol and Drug Abuse Patient Records regulations: The Federal rules restrict any use of the information to criminally investigate or prosecute any alcohol or drug abuse patient.[facility] the event this information is protected by the Federal Confidentiality of Alcohol and Drug Abuse Patient Records regulations: The Federal rules restrict any use of the information to criminally investigate or prosecute any alcohol or drug abuse patient.[facility] the event this information is protected by the Federal Confidentiality of Alcohol and Drug Abuse Patient Records regulations: The Federal rules restrict any use of the information to criminally investigate or prosecute any alcohol or drug abuse patient.[facility] the event this information is protected by the Federal Confidentiality of Alcohol and Drug Abuse Patient Records regulations: The Federal rules restrict any use of the information to criminally investigate or prosecute any alcohol or drug abuse patient.[facility] the event this information is protected by the Federal Confidentiality of Alcohol and Drug Abuse Patient Records regulations: The Federal rules restrict any use of the information to criminally investigate or prosecute any alcohol or drug abuse patient.[facility] the event this information is protected by the Federal Confidentiality of Alcohol and Drug Abuse Patient Records regulations: The Federal rules restrict any use of the information to criminally investigate or prosecute any alcohol or drug abuse patient.[facility] the event this information is protected by the Federal Confidentiality of Alcohol and Drug Abuse Patient Records regulations: The Federal rules restrict any use of the information to criminally investigate or prosecute any alcohol or drug abuse patient.[facility] the event this information is protected by the Federal Confidentiality of Alcohol and Drug Abuse Patient Records regulations: The Federal rules restrict any use of the information to criminally investigate or prosecute any alcohol or drug abuse patient.[facility]In the event this information is protected by the Federal Confidentiality of Alcohol and Drug Abuse Patient Records regulations: The Federal rules restrict any use of the information to criminally investigate or prosecute any alcohol or drug abuse patient.[facility]In the event this information is protected by the Federal Confidentiality of Alcohol and Drug Abuse Patient Records regulations: The Federal rules restrict any use of the information to criminally investigate or prosecute any alcohol or drug abuse patient.[facility] HospitalIn the event this information is protected by the Federal Confidentiality of Alcohol and Drug Abuse Patient Records regulations: The Federal rules restrict any use of the information to criminally investigate or prosecute any alcohol or drug abuse patient.[facility]In the event this information is protected by the Federal Confidentiality of Alcohol and Drug Abuse Patient Records regulations: The Federal rules restrict any use of the information to criminally investigate or prosecute any alcohol or drug abuse patient.[facility] Hospital[facility] the event this information is protected by the Federal Confidentiality of Alcohol and Drug Abuse Patient Records regulations: The Federal rules restrict any use of the information to criminally investigate or prosecute any alcohol or drug abuse patient.[facility] Reason for Visit (unrecogniz ed section and content) Reason Comments Sore Throat Sore throat x 3 days , congestion Reason Comments Results Reason Comments Vaginal Problem some discharge and u ncomfortable seen 2 weeks ago Reason Comments Finger Injury left hand pointer fi nger x thurs, piano stand fell on it Reason Comments Sore Throat X 1 day Reason Comments Vaginal Discharge discharge x 10 days Reason Comments UTI Pain when urinating, frequency urinatingStomach upset after eating [place] x days ago Reason Comments Patient Update Reason Comments Radiology US Specialty Diagnoses / Procedures Referred By Darryl chakraborty Referred To Contact BR IMAGING Diagnoses Abnormal mammogram Procedures US BREAST LTD RIGHT US BREAST UNI REAL TIME WITH IMAGE LIMITED Ivon Glaser APRN.TURN MACHINE OPERATOR [address] [place] [address] [facility] [address] [place] [address] Referral ID Status Reason Start Date Expiration Date V isits Requested Visits Authorized [id number] Closed Auto-Generate d Referral 10/08/2023 11/06/2024 1 1 Reason Comments Consult Abnormal mammogram Care Teams (unrecognized sec tion and content) Branch General Manager Relationship Specialty Start Date End Date Leia Simons MD PCP - General Family Medicine 11/06/11 Branch General Manager Relationship Specialty Start Date End Date Leia Simons MD PCP - General Family Medicine 11/06/11 Branch General Manager Relationship Specialty Start Date End Date Leia Simons MD PCP - General Family Medicine 11/06/11 Branch General Manager Relationship Specialty Start Date End Date Leia Simons MD PCP - General Family Medicine 11/06/11 Branch General Manager Relationship Specialty Start Date End Date Leia Simons MD PCP - General Family Medicine 11/06/11 Branch General Manager Relationship Specialty Start Date End Date Leia Simons MD PCP - General Family Medicine 11/06/11 Branch General Manager Relationship Specialty Start Date End Date Leia Simons MD PCP - General Family Medicine 11/06/11 Branch General Manager Relationship Specialty Start Date End Date Leia Simons MD PCP - General Family Medicine 11/06/11 Branch General Manager Relationship Specialty Start Date End Date Leia Simons MD PCP - General Family Medicine 11/06/11 Branch General Manager Relationship Specialty Start Date End Date Leia Simons MD PCP - General Family Medicine 11/06/11 Branch General Manager Relationship Specialty Start Date End Date Leia Simons MD PCP - General Family Medicine 11/06/11 Branch General Manager Relationship Specialty Start Date End Date Leia Simons MD PCP - General Family Medicine 11/06/11 Branch General Manager Relationship Specialty Start Date End Date Leia Simons MD PCP - General Family Medicine 11/06/11 Branch General Manager Relationship Specialty Start Date End Date Leia Simons MD PCP - General Family Medicine 11/06/11 Branch General Manager Relationship Specialty Start Date End Date Leia Simons MD PCP - [facility] Family Medicine 11/06/11 Branch General Manager Relationship Specialty Start Date End Date Leia Simons MD PCP - [facility] 11/06/11 Branch General Manager Relationship Specialty Start Date End Date Leia Simons MD PCP - [facility] 11/06/11 Branch General Manager Relationship Specialty Start Date End Date Leia Simons MD PCP - [facility] 11/06/11 INFORMATION SOURCE (unrecogn ized section and content) FOR RECORDS PERTAINING TO PATIENTS WHO ARE OR HAVE BEEN ENROLLED IN A CHEMICAL DEPENDENCY/SUBSTANCEABUSE PROGRAM, SOME INFORMATION MAY BE OMITTED. This clinical summary was aggregated from multiple sources. Caution should be exercised in using it in the provision of clinical care. This summary normalizes information from multiple sources, and as a consequence, information in this document may materially change the coding, format and clinical context of patient data. In addition, data may be omitted in some cases. CLINICAL DECISIONS SHOULD BE BASED ON THE PRIMARY CLINICAL RECORDS. [employer] [email or web address] provides no warranty or guarantee of the accuracy or completeness of information in this document.
[2023-11-19 23:45] LABS: Internal QC Validated? YES +Cl - CLEAR BKGD; Pregnancy, Urine Negative Negative
[2023-11-19 23:53] LABS: Squamous Epithelial Cells - UA 0-5 SEEN /hpf (5-10)
[2023-11-20 00:01] VITALS: RESP 16
--- NOTE | 2023-11-20 00:36 | EX.ED.DYSGE1 ---
HPI History of Present Illness Chief Complaint: Flank Pain Informant: patient Narrative Narrative: Patient is a 43-year-old female with past medical history of irritable bowel syndrome. She states she has been doing a probiotic and MiraLAX and having bowel movements. She states that today she noticed some pain in the right lower abdomen that came on without any type of trauma or excessive activity. She states there is been no nausea or vomiting associated with this. She denies any dysuria or hematuria. She reports that as time is passed the pain appears to wrap around towards her right low back. She does state that the pain seems to worsen if she sits up. She denies any vaginal bleeding or discharge or concern for STD and has no concern for . However the pain has not improved and secondary to this she presents for evaluation. [facility] Medical History (Updated 11/20/23 @ 01:[address] Jones Encarnacion DO) Anxiety IBS (irritable bowel syndrome) Home Medications linaclotide 145 mcg capsule (Linzess) 145 mcg PO DAILY 30 days #30 caps 10/28/23 [Rx Last Taken Unknown] polyethylene glycol 3350 17 gram/dose oral powder (ClearLax) 17 g PO BID 10/28/23 [History Last Taken Unknown] sertraline 25 mg tablet (Zoloft) 12.5 mg PO DAILY 10/28/23 [History Last Taken Unknown] Allergy/AdvReac Type Severity Reaction Status Date / Time codeine Allergy Unknown Verified 11/19/23 23:02 Surgical History History of tonsillectomy History of tubal ligation Social History household members: children Smoking Status: Former smoker alcohol intake: current alcohol intake frequency: holidays/special occasions only substance use type: does not use ROS ROS ED Constitutional Constitutional ED: Denies chills or fever(s) ENT ENT ED: Denies sore throat Cardiovascular Cardiovascular: Denies chest pain Respiratory/Chest Respiratory/Chest: Denies cough or dyspnea Gastrointestinal Gastrointestinal: Reports abdominal pain; Denies diarrhea, nausea or vomiting Genitourinary Genitourinary ED: Denies dysuria or hematuria Musculoskeletal Musculoskeletal: Reports back pain; Denies myalgias Integumentary Denies rash Neurologic Neurologic: Denies headache(s) Hematologic/Lymphatic Hematologic/Lymphatic: Denies easy bleeding or easy bruising EXAM Physical Exam Const Vital Signs: 11/19/23 23:03 11/19/23 23:04 11/20/23 00:01 Temperature 96.7 F L 96.7 F L Temperature Source Temporal Temporal Pulse Rate 94 94 Respiratory Rate 18 18 16 Blood Pressure 116/74 116/74 Blood Pressure Mean 88 88 Pulse Ox 99 99 Oxygen Delivery Method Room Air Room Air Positive well nourished and well developed General Appearance ED: well developed HEENT Reports moist mucous membranes Eyes PERRL and EOMs intact bilaterally General Eye ED: Negative for scleral icterus Neck supple Resp normal respiratory effort and clear to auscultation bilaterally Cardio regular rate and regular rhythm Rate: other Other Details: Heart is regular rate and rhythm without murmurs rubs or gallops Radial and carotid pulses equal and symmetric GI non-distended GI Narrative: Abdomen is soft and nondistended with hypoactive bowel sounds. Patient has pain along the right lateral mid upper abdomen with palpation but no voluntary guarding or rigidity. Negative Bacon sign. No pain over McBurney's point. No organomegaly noted. No pulsatile mass or fluid wave. No increased tympany Auscultation: hypoactive bowel sounds Palpation: soft Back/Spine Back/Spine Narrative: Mild right CVA pain noted Extremity normal to inspection Neuro oriented x3, CN's II-XII intact bilaterally and no sensory deficits noted Sensorium / Orientation: alert Motor Exam: strength 5/5 throughout Psych Psych Narrative: Patient has a nervous/anxious affect Skin no rashes or lesions noted Skin Narrative: No overlying soft tissue changes to suggest trauma or infection General Skin Exam: Negative for jaundice MDM MDM MDM Narrative Medical decision making narrative: Patient presented to the ER with stable vitals and reported increasing right-sided abdominal pain throughout the day without trauma. She denied any vaginal bleeding or discharge or concern for STD and therefore my concern for pelvic inflammatory disease or vaginal infection is low. With mild right CVA pain and report of pain wrapping from front to back there is concern this is developing kidney stone versus pyelonephritis or UTI. There is also concern this could be secondary to appendicitis however patient does not have any pain on palpation over McBurney's point. Has pain in his right mid to upper there is also concern this could be biliary colic or acute cholecystitis but there is a negative Bacon sign and the pain is more lateral and over top the gallbladder region. Therefore at this time I elected to perform basic laboratory studies with UA and noncontrast CT scan. Labs revealed no clinically significant findings and urine showed no sign of infection or blood. CT scan showed constipation without obstruction or any obvious infective or obstructive process. There is also no stone noted. On reevaluation the patient has reported resolution of her pain and vitals remained stable. Abdominal exam remains soft and nonsurgical. There is slight concern that this could be related to an ovarian pathology such as a cyst or torsion but there is no cyst noted on the CT scan patient is pain-free do not feel there is need for an emergent transvaginal ultrasound. However in order to rule this out as a possibility patient will be given an outpatient ultrasound to have done at her convenience over the next 1 to 2 days. However at this time as vitals are stable overall workup is negative and patient has resolution of pain she is otherwise safe for discharge History & Record Review Discussion w/independent historian: Patient Lab Data Labs: Laboratory Results - last 24 hr 11/19/23 11/19/23 23:21 23:30 WBC 5.8 RBC 4.36 Hgb 14.3 Hct 40.9 MCV 93.8 MCH 32.8 H MCHC 35.0 RDW Std Deviation 43.5 RDW Coeff of Darci 12.6 Plt Count 248 MPV 9.0 Immature Gran % (Auto) 0.200 Neut % (Auto) 51.2 Lymph % (Auto) 37.9 Bryan % (Auto) 8.7 Eos % (Auto) 1.7 Baso % (Auto) 0.3 Absolute Neuts (auto) 3.0 Absolute Lymphs (auto) 2.21 Nucleated RBC % 0 Sodium 138 Potassium 3.3 L Chloride 106 Carbon Dioxide 26.0 Anion Gap 6 BUN 11 Creatinine 0.75 Estim Creat Clear Calc 82.68 Est GFR (MDRD) Af Amer 108 Est GFR (MDRD) Non-Af 90 BUN/Creatinine Ratio 14.6 Glucose 100 Calcium 8.8 Urine Color Straw Urine Clarity Clear Urine pH 7.0 Ur Specific [place] 1.010 Urine Protein Negative Urine Glucose (UA) Normal Urine Ketones Negative Urine Occult Blood Negative Urine Nitrite Negative Urine Bilirubin Negative Urine Urobilinogen Normal Ur Leukocyte Esterase Negative Urine RBC 0 SEEN Urine WBC 0 SEEN Ur Squamous Epith Cells 0-5 SEEN Urine Bacteria 0 SEEN Urine Mucus 0 SEEN Urine Test Negative Radiography Diagnostic Testing: Clinical Impression(s) from Imaging Studies Abdomen/Pelvis CT 11/19/23 23:19 IMPRESSION: No acute findings. Electronically Signed: Sangeeta Corral MD at 0:14 EST , Discharge Plan Triage Chief Complaint: Flank Pain ED Provider: Jones Encarnacion Dx/Rx/DC Orders Clinical Impression: Nonspecific abdominal pain, Irritable bowel syndrome (IBS) Instructions: Abdominal Pain, ED Constipation (Adult) Prescriptions: No Action polyethylene glycol 3350 [ClearLax] 17 gram/dose powder 17 g PO BID sertraline [Zoloft] 25 mg tablet 12.5 mg PO DAILY Patient Comments: STARTED 10/27 TAKE A HALF FOR 6 DAYS THEN GO TO WHOLE TAB Linzess 145 mcg capsule 145 mcg PO DAILY 30 Days Qty: 30 2RF Other Ambulatory Orders: Transvaginal Non- (Routine) Facility: [facility] [place] - Location: [facility] Ordered By: Dr. Jones Encarnacion Primary Care Provider: Lisandro Simons Referrals: Lisandro Simons MD [Primary Care Provider] - Activity Restrictions/Additional Instructions: Your CT scan today showed no sign of kidney stone or obvious infection or blockage within the intestines. It also did not note any type of cyst or derangement to your ovaries but with pain in the right lower quadrant please obtain the outpatient ultrasound that was ordered in order to ensure that there is no ovarian dysfunction. Please return to the ER should you have any further concerns Disposition Disposition: Home, Self Care Discharge Date/Time: 11/20/23 00:51
== END 2023-11-20 00:51 | disposition home or self-care (01) ==
PROVIDERS: Emergency Provider Emergency Medicine; PCP Family Medicine; Visit Provider Emergency Medicine
DX: R10.9 Unspecified abdominal pain (principal); K58.9 Irritable bowel syndrome, unspecified; Z87.891 Personal history of nicotine dependence; F41.9 Anxiety disorder, unspecified; Z79.899 Other long term (current) drug therapy
CPT/HCPCS: 74176; 80048; 81001; 81025; 85025; 96361; 96374; 99283; J7030; A4216

== ENCOUNTER → 2023-11-21 | Outpatient (CLI) | payer MEDICAID, SELFPAY ==
--- NOTE | 2023-11-21 12:47 | US_ITS ---
STUDY: ULTRASOUND OF THE FEMALE PELVIS - COMPLETE REASON FOR EXAM: Female, 43 years old. Right lower quadrant abdominal pain LMP: 11/20/2023. TECHNIQUE: Transvaginal TECHNICAL QUALITY: Adequate. COMPARISON: 05/07/2013. FINDINGS: The uterus is anteverted and is in a midline position. The uterus measures 8.8 x 5.6 x 4.4 cm. Normal uterine cervix. The endometrium measures 3.6 mm in thickness, and is hyperechoic. There is no demonstrated endometrial mass. There is no demonstrated myometrial mass. No specific diffuse mild heterogeneity throughout the uterus noted, cannot exclude adenomyosis. I.U.D. - The patient does not have an I.U.D. The right ovary is visualized. The right ovary measures 2.8 x 2.1 x 1.6 cm. There is no right ovarian cyst or ovarian mass. There is no visualized right adnexal mass or complex lesion. There is normal arterial and normal venous vascularity. The left ovary is visualized. The left ovary measures 2.6 x 1.7 x 1.7 cm. There is no left ovarian cyst or ovarian mass. There is no visualized left adnexal mass or complex lesion. There is normal arterial and normal venous vascularity. There is no fluid in the cul-de-sac. US/Transvaginal Non- IMPRESSION: Mild heterogeneity throughout the uterus, cannot exclude adenomyosis. Otherwise normal female pelvis ultrasound. Electronically Signed: Falguni Fernandez MD at 18:45 EST ,
--- OUTSIDE RECORDS SUMMARY | 2023-11-21 13:13 | XMS RPT_ITS | CCD ---
Author Name Unknown Address [address] [place] [address] Organization [facility] Care Team Providers Care Clinical Biostatistician Name Role Phone Leia Simons MD Primary [...] Codeine; Translations: [CODEINE] Drug Allergy 10-01-2008 [facility] Work Phone: (20 sources) nickel; Translations: [NICKEL] Drug Allergy 11-07-2011 [facility] Work Phone: (18 sources) Latex; Translations: [LATEX] Drug Allergy 02-13-2023 [facility] Medications Current Medications Medication Drug Class(es) Dates [...] 162.6 cm Suzanne Salinas MD Work Phone: [facility] 10-30-2023 15:02-0500 Body temperature 98.29 [degF] Suzanne Salinas MD Work Phone: [facility] 10-30-2023 15:02-0500 Body weight 54.16 kg Suzanne Salinas MD Work Phone: [facility] 10-30-2023 15:02-0500 Diastolic blood pressure 82 mm[Hg] Suzanne Salinas MD Work Phone: [facility] 10-30-2023 15:02-0500 Heart rate 100 /min Suzanne Salinas MD Work Phone: [facility] 10-30-2023 15:02-0500 SaO2% (BldA) [Mass fraction] 99 % Suzanne Salinas MD Work Phone: [facility] 10-30-2023 15:02-0500 Systolic blood pressure 106 mm[Hg] Suzanne Salinas MD Work Phone: [facility] 08-09-2023 08:36-0400 Body weight 54.43 kg Ivon Glaser APRN.TEST ANALYST Work Phone: [facility] 08-09-2023 08:36-0400 Diastolic blood pressure 60 mm[Hg] Ivon Glaser APRN.TEST ANALYST Work Phone: [facility] 08-09-2023 08:36-0400 Systolic blood pressure 96 mm[Hg] Ivon Glaser APRN.TEST ANALYST Work Phone: [facility] 06-07-2023 12:40-0400 Body weight 55.34 kg Ivon Glaser APRN.TEST ANALYST Work Phone: [facility] 06-07-2023 12:40-0400 Diastolic blood pressure 60 mm[Hg] Ivon Glaser APRN.TEST ANALYST Work Phone: [facility] 06-07-2023 12:40-0400 Systolic blood pressure 104 mm[Hg] Ivon Glaser APRN.TEST ANALYST Work Phone: [facility] 06-02-2023 09:00-0400 Body weight 54.88 kg Krislyn Aberegg PA Work Phone: [facility] 06-02-2023 09:00-0400 Diastolic blood pressure 52 mm[Hg] Krislyn Aberegg PA Work Phone: [facility] 06-02-2023 09:00-0400 Heart rate 72 /min Krislyn Aberegg PA Work Phone: [facility] 06-02-2023 09:00-0400 Respiratory rate 16 /min Krislyn Aberegg PA Work Phone: [facility] 06-02-2023 09:00-0400 SaO2% (BldA) [Mass fraction] 98 % Krislyn Aberegg PA Work Phone: [facility] 06-02-2023 09:00-0400 Systolic blood pressure 80 mm[Hg] Krislyn Aberegg PA Work Phone: [facility] 05-23-2023 09:50-0400 Body temperature 98.01 [degF] Katherine Mateo HEEL LIFT GOUGER.TEST ANALYST Work Phone: [facility] 05-23-2023 09:50-0400 Body weight 55.34 kg Katherine Mateo HEEL LIFT GOUGER.TEST ANALYST Work Phone: [facility] 05-23-2023 09:50-0400 Diastolic blood pressure 66 mm[Hg] Katherine Mateo HEEL LIFT GOUGER.TEST ANALYST Work Phone: [facility] 05-23-2023 09:50-0400 Heart rate 66 /min Katherine Mateo HEEL LIFT GOUGER.TEST ANALYST Work Phone: [facility] 05-23-2023 09:50-0400 Respiratory rate 16 /min Katherine Mateo HEEL LIFT GOUGER.TEST ANALYST Work Phone: [facility] 05-23-2023 09:50-0400 SaO2% (BldA) [Mass fraction] 100 % Katherine Mateo HEEL LIFT GOUGER.TEST ANALYST Work Phone: [facility] 05-23-2023 09:50-0400 Systolic blood pressure 122 mm[Hg] Katherine Mateo HEEL LIFT GOUGER.TEST ANALYST Work Phone: [facility] 04-01-2023 08:53-0400 Body temperature 97.9 [degF] Lanie Nowak HEEL LIFT GOUGER.TEST ANALYST Work Phone: [facility] 04-01-2023 08:53-0400 Body weight 55.34 kg Lanie Nowak HEEL LIFT GOUGER.TEST ANALYST Work Phone: [facility] 04-01-2023 08:53-0400 Diastolic blood pressure 70 mm[Hg] Lanie Nowak HEEL LIFT GOUGER.TEST ANALYST Work Phone: [facility] 04-01-2023 08:53-0400 Heart rate 97 /min Lanie Nowak HEEL LIFT GOUGER.TEST ANALYST Work Phone: [facility] 04-01-2023 08:53-0400 Respiratory rate 16 /min Lanie Nowak APRN.TEST ANALYST Work Phone: [facility] 04-01-2023 08:53-0400 SaO2% (BldA) [Mass fraction] 97 % Lanie Nowak APRN.TEST ANALYST Work Phone: [facility] 04-01-2023 08:53-0400 Systolic blood pressure 90 mm[Hg] Lanie Nowak APRN.TEST ANALYST Work Phone: [facility] 03-20-2023 14:08-0400 Body temperature 98.01 [degF] Lanie Nowak APRN.TEST ANALYST Work Phone: [facility] 03-20-2023 14:08-0400 Body weight 57.15 kg Lanie Nowak APRN.TEST ANALYST Work Phone: [facility] 03-20-2023 14:08-0400 Diastolic blood pressure 62 mm[Hg] Lanie Nowak APRN.TEST ANALYST Work Phone: [facility] 03-20-2023 14:08-0400 Heart rate 70 /min Lanie Nowak APRN.TEST ANALYST Work Phone: [facility] 03-20-2023 14:08-0400 Respiratory rate 16 /min Lanie Nowak APRN.TEST ANALYST Work Phone: [facility] 03-20-2023 14:08-0400 SaO2% (BldA) [Mass fraction] 98 % Lanie Nowak APRN.TEST ANALYST Work Phone: [facility] 03-20-2023 14:08-0400 Systolic blood pressure 90 mm[Hg] Lanie Nowak APRN.TEST ANALYST Work Phone: [facility] 03-13-2023 13:49-0400 Body temperature 98.01 [degF] Sharee LIMA-C Work Phone: [facility] 03-13-2023 13:49-0400 Body weight 55.79 kg Sharee Church PA-C Work Phone: [facility] 03-13-2023 13:49-0400 Diastolic blood pressure 62 mm[Hg] Sharee Athy PA-C Work Phone: [facility] 03-13-2023 13:49-0400 Heart rate 92 /min Sharee Athy PA-C Work Phone: [facility] 03-13-2023 13:49-0400 Respiratory rate 16 /min Sharee Athy PA-C Work Phone: [facility] 03-13-2023 13:49-0400 SaO2% (BldA) [Mass fraction] 97 % Sharee Athy PA-C Work Phone: [facility] 03-13-2023 13:49-0400 Systolic blood pressure 90 mm[Hg] Sharee Athy PA-C Work Phone: [facility] 12-27-2022 14:14-0500 Body weight 56.61 kg Linda Plotts HEEL LIFT GOUGER.CNM Work Phone: [facility] 12-27-2022 14:14-0500 Diastolic blood pressure 60 mm[Hg] Linda Plotts HEEL LIFT GOUGER.CNM Work Phone: [facility] 12-27-2022 14:14-0500 Systolic blood pressure 100 mm[Hg] Linda Plotts HEEL LIFT GOUGER.CNM Work Phone: [facility] 12-12-2022 13:57-0500 Body weight 56.25 kg Linda Plotts HEEL LIFT GOUGER.CNM Work Phone: [facility] 12-12-2022 13:57-0500 Diastolic blood pressure 60 mm[Hg] Linda Plotts HEEL LIFT GOUGER.CNM Work Phone: [facility] 12-12-2022 13:57-0500 Systolic blood pressure 96 mm[Hg] Linda Plotts HEEL LIFT GOUGER.CNM Work Phone: [facility] 11-29-2022 14:35-0500 Body weight 56.79 kg Ivon Glaser APRN.TEST ANALYST Work Phone: [facility] 11-29-2022 14:35-0500 Diastolic blood pressure 60 mm[Hg] Ivon Glaser HEEL LIFT GOUGER.TEST ANALYST Work Phone: [facility] 11-29-2022 14:35-0500 Systolic blood pressure 100 mm[Hg] Ivon Glaser HEEL LIFT GOUGER.TEST ANALYST Work Phone: [facility] 11-07-2022 13:56-0500 Body weight 56.97 kg Ivno Glaser HEEL LIFT GOUGER.TEST ANALYST Work Phone: [facility] 11-07-2022 13:56-0500 Diastolic blood pressure 60 mm[Hg] Ivon Glaser HEEL LIFT GOUGER.TEST ANALYST Work Phone: [facility] 11-07-2022 13:56-0500 Systolic blood pressure 100 mm[Hg] Ivon Montezie HEEL LIFT GOUGER.TEST ANALYST Work Phone: [facility] 11-04-2022 08:48-0500 Body temperature 98.4 [degF] Veronica Lake HEEL LIFT GOUGER.TEST ANALYST Work Phone: [facility] 11-04-2022 08:48-0500 Body weight 56.06 kg Veronica Lake HEEL LIFT GOUGER.TEST ANALYST Work Phone: [facility] 11-04-2022 08:48-0500 Diastolic blood pressure 78 mm[Hg] Veronica Lake HEEL LIFT GOUGER.TEST ANALYST Work Phone: [facility] 11-04-2022 08:48-0500 Heart rate 102 /min Veronica Lake HEEL LIFT GOUGER.TEST ANALYST Work Phone: [facility] 11-04-2022 08:48-0500 Respiratory rate 18 /min Veronica Lake HEEL LIFT GOUGER.TEST ANALYST Work Phone: [facility] 11-04-2022 08:48-0500 SaO2% (BldA) [Mass fraction] 98 % Veronica Lake HEEL LIFT GOUGER.TEST ANALYST Work Phone: [facility] 11-04-2022 08:48-0500 Systolic blood pressure 106 mm[Hg] Veronica Lake HEEL LIFT GOUGER.TEST ANALYST Work Phone: [facility] 07-17-2022 15:39-0400 Body weight 57.15 kg Liseth Stevenson MD Work Phone: [facility] 07-17-2022 15:39-0400 Diastolic blood pressure 62 mm[Hg] Liseth Stevenson MD Work Phone: [facility] 07-17-2022 15:39-0400 Systolic blood pressure 118 mm[Hg] Liseth Stevenson MD Work Phone: [facility] Encounters Encounter Date Encounter Type Care Provider Facility Start: 10-30-2023 End: 10-31-2023 ambulatory SUZANNE SALINAS Facility:[facility] Start: 10-30-2023 End: 10-30-2023 Patient encounter procedure Suzanne Salinas MD Work Phone: General Surgery Procedures Date Procedure Procedure Detail Performing Clinician Start: 10-23-2023 Us breast uni real t tarun with image limited Ivon Glaser APRN.TEST ANALYST Work Phone: Start: 10-23-2023 Digital breast tomosynthesis unilateral Anuradha Colvin APRN.TEST ANALYST Work Phone: Start: 06-02-2023 Urnls dip stick/tabl et rgnt auto w/o microscopy Aleta LIMA Work Phone: Start: 04-01-2023 STREP A MOLECULAR (POC) Lanie Nowak APRN.TEST ANALYST Work Phone: Start: 11-04-2022 STREP A MOLECULAR (POC) [facility] Provider Start: 07-17-2022 BACTERIAL VAGINOSIS AMPLIFICATION Liseth Stevenson MD Work Phone: Start: 07-17-2022 Iadna trichomonas va [facility] amplified probe tech Liseth Stevenson MD Work Phone: Start: 07-01-2021 Mammography Liseth turner MD Work Phone: Plan of Treatment Date Care Activity Detail Author Start: 09-20-2028 HPV Testing HPV Testing [facility] Start: 09-20-2028 Pap Testing Pap Testing [facility] Start: 09-20-2028 Screening for malignant neoplasm of cervix [facility] Start: 11-05-2024 Urine microalbumin profile [facility] Start: 10-05-2024 Mammography Mammogram Screening [facility] Start: 10-05-2024 Screening for malignant neoplasm of breast Mammogram Screening [facility] Start: 08-08-2023 HPV TESTING HPV TESTING [facility] Start: 08-08-2023 PAP TESTING PAP TESTING [facility] Start: 07-20-2023 Influenza vaccination [facility] Start: 06-02-2023 End: 08-02-2023 Bacteria identified in Urine by Culture URINE CULTURE Microbiology Routine Pain with urination Expected: 06/02/2023, Expires: 08/02/2023 [facility] Work Phone: Immunizations Immunization Date Immunization Notes Care Provider Joseph bazzi 11-05-2014 tetanus toxoid, redu ranjeet diphtheria toxoid, and acellular pertussis vaccine, adsorbed Liseth Stevenson MD Work Phone: [facility] Payers Date Payer Category Payer Medicaid [id number] 2017 Medicaid [id number] 2017 Medicaid [id number] Social History Date Type Detail Facility Start: 07-17-2022 Tobacco smoking stat us [facility] Ex-smoker [facility] End: 07-20-2009 History of tobacco use Current smoker [facility] End: 07-20-2009 History of tobacco use Cigarette Smoker [facility] Start: 07-17-2022 End: 06-07-2023 Cigarettes smoked current (pack per day) - Reported 0.5 [facility] Start: 07-17-2022 Tobacco use and exposure Smoke less tobacco non-user [facility] Start: 07-17-2022 End: 10-30-2023 Alcohol intake Current drinker of alcohol (finding) [facility] Start: 06-02-2014 History SDOH Alcohol Comment Seldom, NOT WHILE [facility] Start: 1980 Sex Assigned At Not on file C [facility] Start: 07-04-2022 End: 07-14-2022 Exposure to SARS-CoV-2 (event) Not sure [facility] Start: 06-02-2023 End: 06-07-2023 Tobacco use panel [facility] National Score (1-10 0), lower number is lower risk 68 [facility] Medical Equipment Procedure Code Equipment Code Equipment Origin al Text Equipment Identifier Dates Clip Filshie Cur ve Silastic Titanium Internal Soft Line Upper Jaw Tubal - [id number] Start: 03-22-2017 Clinical Notes 12-30-2014 to 10-30-2023 Suzanne Salinas MD - 10/30/2023 3:19 PM ESTTelephone Encounter - Carmelina Borges APRN.CNP - 10/24/2023 8:01 AM Gali Green RDMS - 10/23/2023 2:30 PM ESTPatient InstructionsPatient Instructions Note Date & Type Note Facility 10-30-2023 Note HNO ID: [id number] Author: Suzanne Salinas MD Service: ? Author [...] core breast biopsy. To be done at [facility] breast imaging center. I have placed a [...] Medical Decision Making (more content not included)... [facility] 10-30-2023 History of Presen t illness Narrative [...] core breast biopsy. To be done at [facility] breast imaging center. I have placed a [...] Suzanne Salinas MD documented in this encounter [facility] 10-24-2023 Miscellaneous Notes Breast ultrasound reviewed. Biopsy recommended. Scheduled with Dr. Salinas on 11/07. Carmelina Borges APRN.STEPHEN documented in this encounter [facility] 10-23-2023 Note HNO ID: [id number] Author: Gali Cartagena RDMS Service: ? Author Type: Reversing Mill Roller Type: Progress Notes Filed: 10/23/2023 4:27 PM [...] Cartagena RDMS October 23, 2023 4:27 PM [facility] 10-23-2023 Note HNO ID: [id number] Author: Marilyn Pedersen Mammo Tech Service: ? Author Type: Reversing Mill Roller Type: Progress Notes Filed: 10/23/2023 2:23 PM [...] Gregory Ocasio October 23, 2023 2:07 PM [facility] 10-23-2023 History of Presen t illness [...] 2023 4:27 PM documented in this encounter [facility] 10-23-2023 History of Presen t illness [...] 2023 2:07 PM documented in this encounter [facility] 10-08-2023 Miscellaneous Notes October 08, 2023 PID: [id number] Nevin Reed [address] [id number] Dear Ms. Reed, Your recent breast imaging [...] who ordered/prescribed your screening mammogram: Please call [phone] or EXT: [phone] to schedule an appointment for your additional [...] and reports are kept on file at [facility] as part of your permanent medical record, and are available for your continuing care. Thank you for allowing us to help in meeting your health care needs. Sincerely, Dr. Holt Interpreting Radiologist [facility] (Additional imaging) documented in this encounter [facility] 10-05-2023 Note HNO ID: [id number] Author: Nereida Iverson Mammo Tech Service: ? Author Type: Reversing Mill Roller Type: Progress Notes Filed: 10/05/2023 3:25 PM [...] Gregory Thompson October 05, 2023 2:20 PM [facility] 10-05-2023 History of Presen t illness Narrative [...] DATA: Not applicable SIGNED BY: Nereida Iverson [employer] Mao October 05, 2023 2:20 PM documented in this encounter [facility] 09-20-2023 Note HNO ID: [id number] Author: Ivon Glaser APRN.TEST ANALYST Service: ? Author Type: Nurse Practitioner Type: Progress Notes Filed: 09/20/2023 3:37 PM Note Text: Cuff Setter Lockstitch offered: Patient declinesJonathan Rooney is a 43 [...] L2 SAB1 IAB0 Ectopic0 Multiple0 Live Births2 Php Programmer History LMP: 07/16/2023, Having periods Age at Menarche: Age at First : Age at Menopause: Php Programmer History Comments: Sexual Activity: Yes; Male Contraception: [...] external genitalia normal, normal Bartholin's glands, urethra, [place]'s glands, no vulvar lesions, no cervical lesions, [...] or sooner as needed Ivon Glaser APRN.STEPHEN [facility] 08-09-2023 Note HNO ID: [id number] Author: Ivon Glaser APRN.STEPHEN Service: ? Author Type: Nurse Practitioner Type: Progress Notes Filed: 08/09/2023 9:22 AM Note Text: Cuff Setter Lockstitch offered: Patient declines. Nevin Reed is a [...] external genitalia normal, normal Bartholin's glands, urethra, [place]'s glands, no vulvar lesions, no cervical lesions, [...] Medical Decision Making Level: 4 - Moderate [facility] 08-09-2023 Instructions Ivon Glaser APRN.STEPHEN - 08/09/2023 9:11 AM EDT Docusate sodium (Colace) 100 mg twice a day or 200 mg at bedtime Can add senna at bedtime, if needed. If effective, can change to Donna-colace 2 at bedtime. Smooth Move tea as needed. documented in this encounter [facility] 08-09-2023 History of Presen t illness Narrative Cuff Setter Lockstitch offered: Patient declines. Nevin Reed is a 43 year old female who presents for vaginal pruritis and discomfort, white thick discharge for 2 week(s). 2 days of Monistat 3 two weeks ago which decreased discharge. Boric acid after SI last WE. RepHresh last used 3 days ago. Was in [place] - ocean, River kayaking, pool, very hot [...] external genitalia normal, normal Bartholin's glands, urethra, [place]'s glands, no vulvar lesions, no cervical lesions, good vaginal support, Moderated amount thick pale yellow discharge present, normal appearing perineal body and perianal region BIMANUAL: uterus normal size, shape and consistency, no adnexal masses, and non-tender. ASSESSMENT/PLAN: 1. Acute vaginitis - ICD9: 616.10, ICD10: N76.0 (primary diagnosis) - history of recurrent yeast and BV - Follows vulvar hygiene. Recently in [place], spent time in ocean, hours in river [...] of results. Follow- up as needed. Ivon Glsaer APRN.TEST ANALYST Medical Decision Making: Problems: Low: Acute, uncomplicated illness or injury Moderate: 1+ chronic illnesses with change Data: Unique test(s) ordered: 3+ Medical Decision Making Level: 4 - Moderate documented in this encounter [facility] 06-07-2023 Note HNO ID: [id number] Author: Ivon Glaser APRN.CNP Service: ? Author [...] L2 SAB1 IAB0 Ectopic0 Multiple0 Live Births2 Php Programmer History LMP: 04/16/2023, Having periods Age at Menarche: Age at First : Age at Menopause: Php Programmer History Comments: Sexual Activity: Yes; Male Contraception: [...] Medical Decision Making Level: 4 - Moderate [facility] 06-07-2023 Instructions Ivon Glaser APRN.CNP - 06/07/2023 12:49 PM EDT Can try using boric acid after intercourse. Using condoms would help prevent BV. When you start an antibiotic, you can try using Monistat 7 or generic - a applicator full at bedtime every other night or 1/2 applicator every night x 2 weeks. documented in this encounter [facility] 06-07-2023 History of Presen t illness [...] L2 SAB1 IAB0 Ectopic0 Multiple0 Live Births2 Php Programmer History LMP: 04/16/2023, Having periods Age at Menarche: Age at First : Age at Menopause: Php Programmer History Comments: Sexual Activity: Yes; Male Contraception: [...] 4 - Moderate documented in this encounter [facility] 06-06-2023 Miscellaneous Notes Would start vaginal [...] infection. Please advise documented in this encounter [facility] 06-03-2023 Miscellaneous Notes Patient notified. Verbalized understanding. Please call patient let her know she was positive for bacterial vaginosis. Flagyl sent to pharmacy. Do not drink alcohol while taking this medication. She may continue Macrobid as well. documented in this encounter [facility] 06-02-2023 Note HNO ID: [id number] Author: JANIE Al Service: ? Author Type: Physician Recovery Operator Helper Type: Progress Notes Filed: 06/02/2023 9:13 AM Note Text: This note was created using Honeyriter. Subjective Nevin Reed is a 42 year old female. HPI 42-year-old female presents for UTI symptoms. Patient states she is having burning with urination, frequency, urgency for the past 2 days. States she has had a little bit of stomach upset after eating Burmese a few days ago as well. She [...] detail warranting prompt ER evaluation. JANIE Al [facility] 06-02-2023 History of Presen t illness Narrative This note was created using Honeyriter. Subjective Nevin Reed is a 42 year old female. HPI 42-year-old female presents for UTI symptoms. Patient states she is having burning with urination, frequency, urgency for the past 2 days. States she has had a little bit of stomach upset after eating Burmese a few days ago as well. She [...] evaluation. JANIE Al documented in this encounter [facility] 05-23-2023 Note HNO ID: [id number] Author: Katherine Galindo APRN.TEST ANALYST Service: ? Author Type: Nurse Practitioner Type: Progress Notes Filed: 05/23/2023 10:32 AM Note Text: Subjective The history is provided by the patient. No director of distribution was used. HPI Nevin Reed is a [...] have confirmed and edited as necessary, the [facility] Review of Systems Constitutional: Negative for chills and fever. Gastrointestinal: Negative for abdominal pain. Genitourinary: Negative for dysuria, flank pain, frequency, hematuria and urgency. Vaginal discharge Objective Physical Exam Vitals and nursing note reviewed. Exam conducted with a security officer present. Constitutional: Appearance: Normal appearance. Abdominal: General: [...] positive and treatment needed Follow up with NETWORK FIELD ENGINEER - BACTERIAL VAGINOSIS NAAT - AMY/TRICHOMONAS NAAT Katherine Galindo APRN.CNP [facility] 05-23-2023 Instructions Katherine Galindo APRN.CNP - 05/23/2023 10:03 AM EDT Will send cultures and notify of results and treatment as indicated Would recommend appointment with NETWORK FIELD ENGINEER documented in this encounter [facility] 05-23-2023 History of Presen t illness Narrative Subjective The history is provided by the patient. No director of distribution was used. HPI Nevin Reed is a [...] have confirmed and edited as necessary, the [facility] Review of Systems Constitutional: Negative for chills and fever. Gastrointestinal: Negative for abdominal pain. Genitourinary: Negative for dysuria, flank pain, frequency, hematuria and urgency. Vaginal discharge Objective Physical Exam Vitals and nursing note reviewed. Exam conducted with a security officer present. Constitutional: Appearance: Normal appearance. Abdominal: General: Bowel sounds are normal. There is no abdominal bruit. Palpations: Abdomen is not rigid. There is no mass or pulsatile mass. Tenderness: There is no abdominal tenderness. There is no guarding or rebound. Negative signs include Bcaon's sign and McBurney's sign. Genitourinary: General: Normal [...] positive and treatment needed Follow up with NETWORK FIELD ENGINEER - BACTERIAL VAGINOSIS NAAT - AMY/TRICHOMONAS NAAT Katherine Galindo APRN.TEST ANALYST documented in this encounter [facility] 04-26-2023 Note HNO ID: [id number] Author: Keya Hopkins APRN.CNP Service: ? Author [...] are similar. She is traveling out of [facility] tomorrow and would like to be [...] nursing note reviewed. Exam conducted with a security officer present. Constitutional: Appearance: Normal appearance. Genitourinary: Exam [...] expected course of illness Keya Hopkins APRN.STEPHEN [facility] 04-01-2023 Note HNO ID: [id number] Author: Lanie Nowak APRN.STEPHEN Service: ? Author [...] Patient agreeable to treatment plan. Lanie Nowak APRN.[facility] 04-01-2023 History of Presen t illness [...] Patient agreeable to treatment plan. Lanie Nowak APRN.TEST ANALYST documented in this encounter [facility] 03-20-2023 Note HNO ID: [id number] Author: RT Ramiro(R) Service: Nuclear Medicine Author [...] RT Ramiro(R) March 20, 2023 2:40 PM [facility] 03-20-2023 Note HNO ID: [id number] Author: Lanie Nowak APRN.TEST ANALYST Service: ? Author Type: Nurse Practitioner Type: [...] history is provided by the patient. No director of distribution was used. Review of Systems Constitutional: Negative. [...] radiographic abnormalities seen in the left hand. Formula Maker: GENE Transcribe Date/Time: Mar 20 2023 2:48P Dictated by : LILLY MCKEON MD Structured to rest ice and elevate alternate Tylenol Motrin and follow-up if signs and symptoms seem to getting worse not better. Patient was okay with this care plan. Lanie Nowak APRN.[facility] 03-20-2023 History of Presen t illness [...] history is provided by the patient. No director of distribution was used. Review of Systems Constitutional: Negative. [...] radiographic abnormalities seen in the left hand. Formula Maker: GENE Transcribe Date/Time: Mar 20 2023 2:48P Dictated by : LILLY MCKEON MD Structured to rest ice and elevate alternate Tylenol Motrin and follow-up if signs and symptoms seem to getting worse not better. Patient was okay with this care plan. Lanie Nowak APRN.STEPHEN documented in this encounter [facility] 03-14-2023 Miscellaneous Notes Patient given results and verbalized understanding of instructions given. Brielle Watts Vaginal cultures are negative, negative STD testing. If still having symptoms follow up with PCP Katherine Galindo APRN.STEPHEN documented in this encounter [facility] 03-13-2023 Note HNO ID: [id number] Author: Sharee Church PA-C Service: ? Author Type: Physician Recovery Operator Helper Type: Progress Notes Filed: 03/13/2023 2:13 PM Note Text: This note was created using Honeyriter. Subjective Nevin Reed is a 42 year [...] AMY / TRICHOMONAS AMPLIFICATION Sharee Church PA-C [facility] 03-13-2023 History of Presen t illness Narrative This note was created using Honeyriter. Subjective Nevin Reed is a 42 year [...] Sharee Church PA-C documented in this encounter [facility] 02-14-2023 Miscellaneous Notes Pt was notified of the results. Pt verbalized understanding. Nevin Willis MA Yeast trichomonas and bacterial vaginosis are all negative. If patient is persistent with symptoms she should follow-up with her NETWORK FIELD ENGINEER or primary care provider thank you documented in this encounter [facility] 02-13-2023 Note HNO ID: [id number] Author: Katherine Galindo APRN.STEPHEN Service: ? Author Type: Nurse Practitioner Type: Progress Notes Filed: 02/13/2023 2:27 PM Note Text: Subjective The history is provided by the patient. No director of distribution was used. HPI Nevin Reed is a [...] have confirmed and edited as necessary, the [facility] Review of Systems Constitutional: Negative for chills [...] if positive on culture. 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 Pt acknowledged understanding of concepts and follow up plan. Specific signs and symptoms that would indicate the need for higher level of care were discussed in detail warranting prompt ER evaluation. Katherine Galindo APRN.TEST ANALYST [facility] 01-12-2023 Miscellaneous Notes Results of cultures viewed by patient on mychart ----- Message from Lidia Torres MD sent at 01/12/2023 8:22 AM EST ----- Notify patient that all vaginal cultures negative. documented in this encounter [facility] 01-10-2023 Note HNO ID: [id number] Author: Lidia Torres MD Service: ? Author Type: Physician Type: Progress Notes Filed: 01/10/2023 1:59 PM Note Text: Cuff Setter Lockstitch offered: Patient declines. Nevin Reed is a [...] L2 SAB1 IAB0 Ectopic0 Multiple0 Live Births2 Php Programmer History LMP: 12/14/2022 (Approximate), Having periods Age at Menarche: Age at First : Age at Menopause: Php Programmer History Comments: Sexual Activity: Yes; Male Contraception: [...] external genitalia normal, normal Bartholin's glands, urethra, [place]'s glands, no vulvar lesions, no cervical lesions, [...] Level: 4 - Moderate Lidia Delgado MD [facility] 12-27-2022 Note HNO ID: [id number] Author: Linda Huff APRN.TAMRA Service: ? Author Type: Counterintelligence Agent Type: Progress Notes Filed: 12/27/2022 3:49 PM Note Text: Gc/Cuff Setter Lockstitch offered: Patient declines. Nevin Reed is a [...] L2 SAB1 IAB0 Ectopic0 Multiple0 Live Births2 Php Programmer History LMP: 12/14/2022 (Approximate), Having periods Age at Menarche: Age at First : Age at Menopause: Php Programmer History Comments: Sexual Activity: Yes; Male Contraception: [...] external genitalia normal, normal Bartholin's glands, urethra, [place]'s glands, no vulvar lesions, no cervical lesions, [...] to plan of care Linda Huff APRN.CNM [facility] 12-27-2022 Instructions Linda Huff APRN.CNM - 12/27/2022 [...] the embarrassing symptoms. documented in this encounter [facility] 12-27-2022 History of Presen t illness Narrative Gc/Cuff Setter Lockstitch offered: Patient declines. Nevin Reed is a [...] L2 SAB1 IAB0 Ectopic0 Multiple0 Live Births2 Php Programmer History LMP: 12/14/2022 (Approximate), Having periods Age at Menarche: Age at First : Age at Menopause: Php Programmer History Comments: Sexual Activity: Yes; Male Contraception: [...] external genitalia normal, normal Bartholin's glands, urethra, [place]'s glands, no vulvar lesions, no cervical lesions, [...] Linda Huff APRN.CNM documented in this encounter [facility] 12-12-2022 Note HNO ID: [id number] Author: Linda Huff APRN.CNM Service: ? Author Type: Counterintelligence Agent Type: Progress Notes Filed: 12/12/2022 2:23 PM Note Text: Cuff Setter Lockstitch offered: Patient declines. Nevin Reed is a [...] external genitalia normal, normal Bartholin's glands, urethra, [place]'s glands, no vulvar lesions, no cervical lesions, [...] any changes to treatment plan Linda Huff APRN.[facility] 12-12-2022 History of Presen t illness Narrative Cuff Setter Lockstitch offered: Patient declines. Nevin Reed is a [...] external genitalia normal, normal Bartholin's glands, urethra, [place]'s glands, no vulvar lesions, no cervical lesions, [...] Linda Huff APRN.CNM documented in this encounter [facility] 11-29-2022 Note HNO ID: [id number] Author: Ivon Glaser APRN.CNP Service: ? Author Type: Nurse Practitioner Type: Progress Notes Filed: 11/29/2022 2:53 PM Note Text: Cuff Setter Lockstitch offered: Patient declines. Nevin Reed is a [...] external genitalia normal, normal Bartholin's glands, urethra, [place]'s glands, no vulvar lesions, no cervical lesions, [...] Medical Decision Making Level: 3 - Low [facility] 11-29-2022 History of Presen t illness Narrative Cuff Setter Lockstitch offered: Patient declines. Nevin Reed is a [...] external genitalia normal, normal Bartholin's glands, urethra, [place]'s glands, no vulvar lesions, no cervical lesions, [...] 3 - Low documented in this encounter [facility] 11-07-2022 Note HNO ID: [id number] Author: Ivon Glaser APRN.STEPHEN Service: ? Author Type: Nurse Practitioner Type: Progress Notes Filed: 11/07/2022 2:46 PM Note Text: Cuff Setter Lockstitch offered: Patient declines. Nevin Reed is a [...] external genitalia normal, normal Bartholin's glands, urethra, [place]'s glands, no vulvar lesions, no cervical lesions, good vaginal support, scant amount thick pale yellow discharge present, normal appearing perineal body and perianal region BIMANUAL: uterus normal size, shape and consistency, no adnexal masses, and non-tender. ASSESSMENT/PLAN: 1. Vaginal itching - ICD9: 698.1, ICD10: N89.8 (primary diagnosis) - Declined STD testing. - BACTERIAL VAGINOSIS AMPLIFICATION - AYM / TRICHOMONAS AMPLIFICATION 2. Acute vaginitis - ICD9: 616.10, ICD10: N76.0 - LACTOBACILLUS ACIDOPHILUS AND RHAMNOSUS 15 BILLION CELL CAPSULE Will notify of results - Diflucan if appropriate. Follow- up as needed. Ivon Glaser APRN.CNP Medical Decision Making: Problems: Low: Acute, uncomplicated illness or injury Data: Unique test(s) ordered: 2 Risk: Moderate: Drug management Medical Decision Making Level: 3 - Low [facility] 11-07-2022 Instructions Ivon Glaser APRN.CNP - 11/07/2022 2:14 PM EST Aquaphor Separate any probiotic from antibiotic for 1-2 hours. documented in this encounter [facility] 11-07-2022 History of Presen t illness Narrative Cuff Setter Lockstitch offered: Patient declines. Nevin Reed is a [...] external genitalia normal, normal Bartholin's glands, urethra, [place]'s glands, no vulvar lesions, no cervical lesions, [...] 3 - Low documented in this encounter [facility] 11-04-2022 Instructions Veronica Lake APRN.CNP - [...] inability to swallow. documented in this encounter [facility] 11-04-2022 History of Presen t illness [...] care with fluids and rest Veronica Lake APRN.TEST ANALYST documented in this encounter [facility] 07-17-2022 History of Presen t illness [...] external genitalia normal, normal Bartholin's glands, urethra, [place]'s glands, no vulvar lesions, no cervical lesions, [...] 3 - Low documented in this encounter [facility] documented as of this encounter (statuses as of 07/20/2022) [facility] History of Past illness Narrative* Problem [...] 10/23/2014 Overview: 06/02/2014 Patient is considering adoption. [place] adoption guide given to patient. TKRN History [...] of this encounter (statuses as of 11/04/2022) [facility] History of Past illness Narrative* Problem [...] 10/23/2014 Overview: 06/02/2014 Patient is considering adoption. [place] adoption guide given to patient. TKRN History [...] of this encounter (statuses as of 11/07/2022) [facility] History of Past illness Narrative* Problem [...] 10/23/2014 Overview: 06/02/2014 Patient is considering adoption. [place] adoption guide given to patient. TKRN History [...] of this encounter (statuses as of 11/29/2022) [facility] History of Past illness Narrative* Problem [...] 10/23/2014 Overview: 06/02/2014 Patient is considering adoption. [place] adoption guide given to patient. TKRN History [...] of this encounter (statuses as of 12/12/2022) [facility] History of Past illness Narrative* Problem [...] 10/23/2014 Overview: 06/02/2014 Patient is considering adoption. [place] adoption guide given to patient. TKRN History [...] of this encounter (statuses as of 12/27/2022) [facility] History of Past illness Narrative* Problem [...] 10/23/2014 Overview: 06/02/2014 Patient is considering adoption. [place] adoption guide given to patient. TKRN History [...] of this encounter (statuses as of 01/12/2023) [facility] History of Past illness Narrative* Problem [...] 10/23/2014 Overview: 06/02/2014 Patient is considering adoption. [place] adoption guide given to patient. TKRN History [...] of this encounter (statuses as of 02/14/2023) [facility] History of Past illness Narrative* Problem [...] 10/23/2014 Overview: 06/02/2014 Patient is considering adoption. [place] adoption guide given to patient. TKRN History [...] of this encounter (statuses as of 03/14/2023) [facility] History of Past illness Narrative* Problem [...] 10/23/2014 Overview: 06/02/2014 Patient is considering adoption. [place] adoption guide given to patient. TKRN History [...] of this encounter (statuses as of 03/14/2023) [facility] History of Past illness Narrative* Problem [...] 10/23/2014 Overview: 06/02/2014 Patient is considering adoption. [place] adoption guide given to patient. TKRN History [...] of this encounter (statuses as of 03/21/2023) [facility] History of Past illness Narrative* Problem [...] 10/23/2014 Overview: 06/02/2014 Patient is considering adoption. [place] adoption guide given to patient. TKRN History [...] of this encounter (statuses as of 04/01/2023) [facility] History of Past illness Narrative* Problem [...] 10/23/2014 Overview: 06/02/2014 Patient is considering adoption. [place] adoption guide given to patient. TKRN History [...] of this encounter (statuses as of 05/23/2023) [facility] History of Past illness Narrative* Problem [...] 10/23/2014 Overview: 06/02/2014 Patient is considering adoption. [place] adoption guide given to patient. TKRN History [...] of this encounter (statuses as of 06/02/2023) [facility] History of Past illness Narrative* Problem [...] 10/23/2014 Overview: 06/02/2014 Patient is considering adoption. [place] adoption guide given to patient. TKRN History [...] of this encounter (statuses as of 06/03/2023) [facility] History of Past illness Narrative* Problem [...] 10/23/2014 Overview: 06/02/2014 Patient is considering adoption. [place] adoption guide given to patient. TKRN History [...] of this encounter (statuses as of 06/06/2023) [facility] History of Past illness Narrative* Problem [...] 10/23/2014 Overview: 06/02/2014 Patient is considering adoption. [place] adoption guide given to patient. TKRN History [...] of this encounter (statuses as of 06/07/2023) [facility] History of Past illness Narrative* Problem [...] 10/23/2014 Overview: 06/02/2014 Patient is considering adoption. [place] adoption guide given to patient. TKRN History [...] of this encounter (statuses as of 08/09/2023) [facility] of Past illness Narrative* Problem [...] 10/23/2014 Overview: 06/02/2014 Patient is considering adoption. [place] adoption guide given to patient. TKRN History [...] of this encounter (statuses as of 10/06/2023) [facility] History of Past illness Narrative* Problem [...] 10/23/2014 Overview: 06/02/2014 Patient is considering adoption. [place] adoption guide given to patient. TKRN History [...] of this encounter (statuses as of 10/10/2023) [facility] History of Past illness Narrative* Problem [...] 10/23/2014 Overview: 06/02/2014 Patient is considering adoption. [place] adoption guide given to patient. TKRN History [...] of this encounter (statuses as of 10/24/2023) [facility] History of Past illness Narrative* Problem [...] 10/23/2014 Overview: 06/02/2014 Patient is considering adoption. [place] adoption guide given to patient. TKRN History [...] of this encounter (statuses as of 10/24/2023) [facility] History of Past illness Narrative* Problem [...] 10/23/2014 Overview: 06/02/2014 Patient is considering adoption. [place] adoption guide given to patient. TKRN History [...] of this encounter (statuses as of 10/24/2023) [facility] History of Past illness Narrative* Problem [...] 10/23/2014 Overview: 06/02/2014 Patient is considering adoption. [place] adoption guide given to patient. TKRN History [...] of this encounter (statuses as of 11/01/2023) [facility] Vaginal discharge- Primary Leukorrhea, not specified as infective Vaginal irritation Unspecified noninflammatory disorder of vagina [facility] Strep pharyngitis- Primary Streptococcal sore throat URI, acute Acute upper respiratory infections of unspecified site [facility] Diagnosis Vaginal itching- Primary Pruritus of genital organs Vaginal discharge Leukorrhea, not specified as infective documented in this encounter [facility] note* Diagnosis Vaginal discharge- Primary Leukorrhea, not specified as infective documented in this encounter [facility] note* Diagnosis Vaginal irritation- Primary Unspecified noninflammatory disorder of vagina documented in this encounter [facility] note* Diagnosis Vaginal discharge- Primary Leukorrhea, not specified as infective Vaginal irritation Unspecified noninflammatory disorder of vagina documented in this encounter [facility] note* Diagnosis Vaginal discharge- Primary Leukorrhea, not specified as infective documented in this encounter [facility] note* Diagnosis Pain- Primary Generalized pain documented in this encounter [facility] note* Diagnosis Sore throat- Primary Acute pharyngitis documented in this encounter [facility] note* Diagnosis Acute vaginitis- Primary Vaginitis and vulvovaginitis, unspecified documented in this encounter [facility] note* Diagnosis Pain with urination- Primary Renal colic documented in this encounter [facility] note* Diagnosis Urinary tract infection without hematuria, site unspecified- Primary BV (bacterial vaginosis) Vaginitis and vulvovaginitis, unspecified Vagina itching Pruritus of genital organs documented in this encounter [facility] note* Diagnosis Acute vaginitis- Primary Vaginitis and vulvovaginitis, unspecified Constipation, unspecified constipation type documented in this encounter [facility] note* Diagnosis Encounter for gynecological examination (general) (routine) without abnormal findings Encounter for screening mammogram for breast cancer Extremely dense tissue of both breasts on mammography documented in this encounter [facility] note* Diagnosis Abnormal mammogram Abnormal mammogram, unspecified documented in this encounter [facility] note* Diagnosis Abnormal mammogram Abnormal mammogram, unspecified documented in this encounter [facility] note* Diagnosis Abnormal ultrasound of breast- Primary Other (abnormal) findings on radiological examination of breast documented in this encounter [facility] for referral (narrative)* Diagnostic Procedure Only (Urgent) - Closed Specialty Diagnoses / Procedures Referred By Darryl t Referred To Contact XR IMAGING Diagnoses Pain Procedures XR HAND GENERAL 3V PA/LAT/OBL LEFT RADEX HAND MINIMUM 3 VIEWS Lanie Nowak APRN.TEST ANALYST [address] [place] [address] Xr Imaging Referral ID Status Reason Start Date Expiration Date V isits Requested Visits Authorized [id number] Closed Auto-Generate d Referral 03/20/2023 04/18/2024 1 1 [facility] for referral (narrative)* Diagnostic Procedure Only (Routine) - Closed Specialty Diagnoses / Procedures Referred By Contac t Referred To Contact BR IMAGING Diagnoses Abnormal mammogram Procedures US BREAST LTD RIGHT US BREAST UNI REAL TIME WITH IMAGE LIMITED Ivon Glaser APRN.TEST ANALYST [address] [place] [address] [facility] [address] [place] [address] Referral ID Status Reason Start Date Expiration Date V isits Requested Visits Authorized [id number] Closed Auto-Generate d Referral 10/08/2023 11/06/2024 1 1 * Diagnostic Procedure Only (Routine) - Closed Specialty Diagnoses / Procedures Referred By Darryl t Referred To Contact BR IMAGING Diagnoses Abnormal mammogram Procedures US BREAST LTD LEFT US BREAST UNI REAL TIME WITH IMAGE LIMITED Ivon Glaser APRN.TEST ANALYST [address] [place] [address] [facility] [address] [place] [address] Referral ID Status Reason Start Date Expiration Date V isits Requested Visits Authorized [id number] Closed Auto-Generate d Referral 10/08/2023 11/06/2024 1 1 [facility] for referral (narrative)* Diagnostic Procedure Only (Routine) - Pending Review Specialty Diagnoses / Procedures Referred By Contac t Referred To Contact BR IMAGING Diagnoses Abnormal ultrasound of breast Procedures US BIOPSY BREAST RIGHT BX BREAST W/DEVICE 1ST LESION ULTRASOUND Suzanne Campbell MD [address] [place] [address] [facility] [address] [place] [address] Referral ID Status Reason Start Date Expiration Date Visits Requested Visits Authorized [id number] Pending Review Auto-Generat ed Referral 3 11/28/2024 1 1 [facility] for visit Narrative* Diagnostic Procedure Only (Routine) [...] MAMMOGRAPHY BI 2-VIEW BREAST INC Ivon Moore HEEL LIFT GOUGER.TEST ANALYST [address] [place] [address] [facility] [address] [place] [phone] Referral ID Status Reason Start Date Expiration Date V isits Requested Visits Authorized [id number] Closed Auto-Generate d Referral 09/20/2023 10/19/2024 1 1 [facility] for visit Narrative* Diagnostic Procedure Only (Routine) - Closed Specialty Diagnoses / Procedures Referred By Darryl chakraborty Referred To Contact BR IMAGING Diagnoses Abnormal mammogram Procedures [facility] RIGHT DIAGNOSTIC MAMMOGRAPHY COMPUTER-AIDED [facility]CJ [facility] Anuradha Colvin, HEEL LIFT GOUGER.TEST ANALYST [address] [place] [address] [facility] [address] [place] [phone] Referral ID Status Reason Start Date Expiration Date V isits Requested Visits Authorized [id number] Closed Auto-Generate d Referral 10/15/2023 11/13/2024 1 1 [facility] Summary Purpose Family History No Family [...] or prosecute any alcohol or drug abuse patient.[facility] the event this information is protected by the Federal Confidentiality of Alcohol and Drug Abuse Patient Records regulations: The Federal rules restrict any use of the information to criminally investigate or prosecute any alcohol or drug abuse patient.[facility] the event this information is protected by the Federal Confidentiality of Alcohol and Drug Abuse Patient Records regulations: The Federal rules restrict any use of the information to criminally investigate or prosecute any alcohol or drug abuse patient.[facility] the event this information is protected by the Federal Confidentiality of Alcohol and Drug Abuse Patient Records regulations: The Federal rules restrict any use of the information to criminally investigate or prosecute any alcohol or drug abuse patient.[facility] the event this information is protected by the Federal Confidentiality of Alcohol and Drug Abuse Patient Records regulations: The Federal rules restrict any use of the information to criminally investigate or prosecute any alcohol or drug abuse patient.[facility] the event this information is protected by the Federal Confidentiality of Alcohol and Drug Abuse Patient Records regulations: The Federal rules restrict any use of the information to criminally investigate or prosecute any alcohol or drug abuse patient.[facility] the event this information is protected by the Federal Confidentiality of Alcohol and Drug Abuse Patient Records regulations: The Federal rules restrict any use of the information to criminally investigate or prosecute any alcohol or drug abuse patient.[facility] the event this information is protected by the Federal Confidentiality of Alcohol and Drug Abuse Patient Records regulations: The Federal rules restrict any use of the information to criminally investigate or prosecute any alcohol or drug abuse patient.[facility] the event this information is protected by the Federal Confidentiality of Alcohol and Drug Abuse Patient Records regulations: The Federal rules restrict any use of the information to criminally investigate or prosecute any alcohol or drug abuse patient.[facility] the event this information is protected by the Federal Confidentiality of Alcohol and Drug Abuse Patient Records regulations: The Federal rules restrict any use of the information to criminally investigate or prosecute any alcohol or drug abuse patient.[facility] the event this information is protected by the Federal Confidentiality of Alcohol and Drug Abuse Patient Records regulations: The Federal rules restrict any use of the information to criminally investigate or prosecute any alcohol or drug abuse patient.[facility] the event this information is protected by the Federal Confidentiality of Alcohol and Drug Abuse Patient Records regulations: The Federal rules restrict any use of the information to criminally investigate or prosecute any alcohol or drug abuse patient.[facility] the event this information is protected by the Federal Confidentiality of Alcohol and Drug Abuse Patient Records regulations: The Federal rules restrict any use of the information to criminally investigate or prosecute any alcohol or drug abuse patient.[facility]In the event this information is protected by the Federal Confidentiality of Alcohol and Drug Abuse Patient Records regulations: The Federal rules restrict any use of the information to criminally investigate or prosecute any alcohol or drug abuse patient.[facility]In the event this information is protected by the Federal Confidentiality of Alcohol and Drug Abuse Patient Records regulations: The Federal rules restrict any use of the information to criminally investigate or prosecute any alcohol or drug abuse patient.[facility]In the event this information is protected by the Federal Confidentiality of Alcohol and Drug Abuse Patient Records regulations: The Federal rules restrict any use of the information to criminally investigate or prosecute any alcohol or drug abuse patient.[facility]In the event this information is protected by the Federal Confidentiality of Alcohol and Drug Abuse Patient Records regulations: The Federal rules restrict any use of the information to criminally investigate or prosecute any alcohol or drug abuse patient.[facility]In the event this information is protected by the Federal Confidentiality of Alcohol and Drug Abuse Patient Records regulations: The Federal rules restrict any use of the information to criminally investigate or prosecute any alcohol or drug abuse patient.[facility] the event this information is protected by the Federal Confidentiality of Alcohol and Drug Abuse Patient Records regulations: The Federal rules restrict any use of the information to criminally investigate or prosecute any alcohol or drug abuse patient.[facility]In the event this information is protected by the Federal Confidentiality of Alcohol and Drug Abuse Patient Records regulations: The Federal rules restrict any use of the information to criminally investigate or prosecute any alcohol or drug abuse patient.[facility]In the event this information is protected by the Federal Confidentiality of Alcohol and Drug Abuse Patient Records regulations: The Federal rules restrict any use of the information to criminally investigate or prosecute any alcohol or drug abuse patient.[facility]In the event this information is protected by the Federal Confidentiality of Alcohol and Drug Abuse Patient Records regulations: The Federal rules restrict any use of the information to criminally investigate or prosecute any alcohol or drug abuse patient.[facility]In the event this information is protected by the Federal Confidentiality of Alcohol and Drug Abuse Patient Records regulations: The Federal rules restrict any use of the information to criminally investigate or prosecute any alcohol or drug abuse patient.[facility]In the event this information is protected by the Federal Confidentiality of Alcohol and Drug Abuse Patient Records regulations: The Federal rules restrict any use of the information to criminally investigate or prosecute any alcohol or drug abuse patient.[facility] Reason for Visit (unrecogniz ed section [...] when urinating, frequency urinatingStomach upset after eating Burmese x days ago Reason Comments Patient Update Reason Comments Radiology US Specialty Diagnoses / Procedures Referred By Darryl chakraborty Referred To Contact [facility] Diagnoses Abnormal mammogram Procedures US BREAST LTD RIGHT US BREAST UNI REAL TIME WITH IMAGE LIMITED Ivon Glaser APRN.TEST ANALYST [address] [place] [address] [facility] [address] [place] [address] Referral ID Status Reason Start Date Expiration Date V isits Requested Visits Authorized [id number] Closed Auto-Generate d Referral 10/08/2023 11/06/2024 1 1 Reason Comments Consult Abnormal mammogram Care Teams (unrecognized sec tion and content) Clinical Biostatistician Relationship Specialty Start Date End Date Leia Simons MD PCP - General Family Medicine 11/06/11 Clinical Biostatistician Relationship Specialty Start Date End Date Leia Simons MD PCP - General Family Medicine 11/06/11 Clinical Biostatistician Relationship Specialty Start Date End Date Leia Simons MD PCP - General Family Medicine 11/06/11 Clinical Biostatistician Relationship Specialty Start Date End Date Leia Simons MD PCP - General Family Medicine 11/06/11 Clinical Biostatistician Relationship Specialty Start Date End Date Leia Simons MD PCP - General Family Medicine 11/06/11 Clinical Biostatistician Relationship Specialty Start Date End Date Leia Simons MD PCP - General Family Medicine 11/06/11 Clinical Biostatistician Relationship Specialty Start Date End Date Leia Simons MD PCP - General Family Medicine 11/06/11 Clinical Biostatistician Relationship Specialty Start Date End Date Leia Simons MD PCP - General Family Medicine 11/06/11 Clinical Biostatistician Relationship Specialty Start Date End Date Leia Simons MD PCP - General Family Medicine 11/06/11 Clinical Biostatistician Relationship Specialty Start Date End Date Leia Simons MD PCP - General Family Medicine 11/06/11 Clinical Biostatistician Relationship Specialty Start Date End Date Leia Simons MD PCP - General Family Medicine 11/06/11 Clinical Biostatistician Relationship Specialty Start Date End Date Leia Simons MD PCP - General Family Medicine 11/06/11 Clinical Biostatistician Relationship Specialty Start Date End Date Leia Simons MD PCP - General Family Medicine 11/06/11 Clinical Biostatistician Relationship Specialty Start Date End Date Leia Simons MD PCP - General Family Medicine 11/06/11 Clinical Biostatistician Relationship Specialty Start Date End Date Leia Simons MD PCP - [facility] Family Medicine 11/06/11 Clinical Biostatistician Relationship Specialty Start Date End Date Leia Simons MD PCP - [facility] 11/06/11 Clinical Biostatistician Relationship Specialty Start Date End Date Leia Simons MD PCP - [facility] 11/06/11 Clinical Biostatistician Relationship Specialty Start Date End Date Leia Simons MD PCP - [facility] 11/06/11 INFORMATION SOURCE (unrecogn ized section and [...] BE BASED ON THE PRIMARY CLINICAL RECORDS. [email or web address] [facility]. provides no warranty or guarantee of the accuracy or completeness of information in this document.
== END | disposition home or self-care (01) ==
LOC: US 12:47
PROVIDERS: PCP Family Medicine; Referring Provider Emergency Medicine; Visit Provider Emergency Medicine
DX: R10.31 Right lower quadrant pain (principal)
CPT/HCPCS: 76830

== ENCOUNTER → 2024-07-29 | Outpatient (CLI) | payer MEDICAID, SELFPAY ==
[2024-07-29 18:08] LABS: Cholesterol 149 mg/dL (200); High Density Lipoprotein 62 mg/dL; Triglycerides 115 mg/dL; Very Low Density Lipoprotein 23 mg/dL (5-40)
[2024-07-29 18:43] LABS: Hemoglobin A1c 4.6 % (3.8-5.6)
== END | disposition home or self-care (01) ==
LOC: MFPLAB 14:43
PROVIDERS: PCP Family Medicine; Visit Provider Nurse Practitioner Family
DX: Z13.1 Encounter for screening for diabetes mellitus (principal); Z13.220 Encounter for screening for lipoid disorders
CPT/HCPCS: 36415; 80061; 83036

== ENCOUNTER 2024-08-04 06:41 | Emergency (ER) | payer MEDICAID, SELFPAY ==
[2024-08-04 06:43] VITALS: BP 119/80; PULSE 88; RESP 16; TEMP 36.3; O2SAT 98; BMI 22.6
[2024-08-04 07:18] LABS: Absolute Lymphocyte Count 1.48 X10^3/uL (0.83-4.51); Absolute Neutrophil Count 1.4 X10^3/uL (2.0-7.7); Basophil# 0.02 X10^3/uL; Basophil% 0.6 % (0-1); Eosinophil# 0.06 X10^3/uL; Eosinophils% 1.8 % (0-5); Hematocrit 39.7 % (37-47); Hemoglobin 13.8 g/dL (12.0-15.0); Lymphocyte # 1.48 X10^3/ul (0.83-4.51); Lymphocyte % 45.1 % (19-41); Mean Corp Hgb Conc 34.8 g/dL (32-36); Mean Corpuscular Hgb 33.2 pg (27.0-32.0); Mean Corpuscular Volume 95.4 fL (81-99); Mean Platelet Vol. 8.5 fl (6.2-12.0); Monocyte# 0.35 X10^3/uL; Monocyte% 10.7 % (0-10); NRBC Flagged by Analyzer 0 % (0-5); Neutrophil # 1.35 X10^3/uL (2.7-7.7); Neutrophil % 41.2 % (47-70); Platelet Count 212 K/mm3 (150-450); RBC Distribution Width CV 12.9 % (11.6-14.6); RBC Distribution Width SD 45.1 fl (35.1-43.9); Red Blood Count 4.16 M/mm3 (4.2-5.4); White Blood Count 3.3 K/mm3 (4.4-11.0)
[2024-08-04 07:26] LABS: Internal QC Validated? YES +Cl - CLEAR BKGD; Pregnancy, Serum, hCG Quali. NEGATIVE Negative
--- NOTE | 2024-08-04 07:28 | EDS_ITS ---
HPI HPI - Female History of Present Illness Chief Complaint: Vag Bleeding Detail of Chief Complaint: Vaginal bleeding that started yesterday. Informant: patient Pain Pain: Positive for Pelvic Pain Onset: Yesterday Context: Sudden Onset Timing: Intermittent Quality: Positive for Cramping and Aching Location: - (Pelvic region) Current Severity: Mild Maximum Severity: Mild Worsened by: Movement and [place] Relieved by: Remaining Still and NSAIDS Bleeding Issue: Positive for Vaginal bleeding; Negative for Passing clots or Passing tissue Onset: Yesterday (Spotting last evening had 2 gushes this morning) Context: Sudden Onset Timing: Intermittent Current Severity: Heavy Maximum Severity: Heavy Associated Symptoms Associated Symptoms: Negative for Dysuria, Frequency, Urgency, Hematuria or Missed Period Sexually: Positive for Active Control: BTL (Approximately 9 years ago) Narrative Narrative: Patient is a 44-year-old female. She states her last normal menstrual period was 1.5 weeks ago. She states she is very regular. She is status post bilateral tubal ligation after the of her daughter 9 years ago. She denies orthostatic symptoms. Denies pain referred to her shoulders. She denies back or flank pain. She denies urologic symptoms. She is on no antithrombotic or anticoagulant. She states she had spotting last evening. She had 2 gushes this morning. She is only used 1 pad. There is no history of endometriosis ovarian cyst. Prior similar symptoms: No Recent Illness/Hospitalization: No PFSH PFSH Medical History IBS (irritable bowel syndrome) Anxiety Allergy/AdvReac Type Severity Reaction Status Date / Time codeine Allergy Unknown Verified 08/04/24 06:42 Surgical History History of tubal ligation History of tonsillectomy Social History household members: children Smoking Status: Former smoker alcohol intake: current alcohol intake frequency: holidays/special occasions only substance use type: does not use ROS ROS ED Constitutional Constitutional ED: Denies chills, fever(s), subjective or sweats ENT ENT ED: Denies rhinorrhea or sore throat Cardiovascular Cardiovascular: Denies chest pain or palpitations Gastrointestinal Gastrointestinal: Reports abdominal pain; Denies constipation, diarrhea, melena, nausea or vomiting Genitourinary Genitourinary ED: Denies dysuria, hematuria or urinary frequency Musculoskeletal Musculoskeletal: Denies arthralgias, myalgias or neck pain Integumentary Denies rash Hematologic/Lymphatic Hematologic/Lymphatic: Denies easy bleeding or easy bruising EXAM Physical Exam Const Vital Signs: 08/04/24 06:43 08/04/24 09:00 Temperature 97.4 F L Temperature Source Oral Pulse Rate 88 78 Respiratory Rate 16 16 Blood Pressure 119/80 105/78 Blood Pressure Mean 93 87 Pulse Ox 98 98 Oxygen Delivery Method Room Air Room Air Positive well nourished and well developed General Appearance ED: well developed and NAD; Negative for pallor HEENT Reports moist mucous membranes HEENT Narrative: Head is atraumatic no cephalic. Ears normal. Patient has slight exophthalmos's. Eyes PERRL and EOMs intact bilaterally General Eye ED: Negative for pale conjunctiva or scleral icterus Neck no lymphadenopathy, supple and no JVD Resp normal respiratory effort and clear to auscultation bilaterally Cardio regular rate, regular rhythm, S1 normal heart sound, no murmurs and no JVD GI normal to inspection, nondistended, normoactive bowel sounds, soft to palpation, non-tender, non-distended and no masses Back/Spine no CVA tenderness Extremity normal to inspection Neuro oriented x3 and CN's II-XII intact bilaterally Sensorium / Orientation: alert Psych mental status grossly normal Skin no rashes or lesions noted and no wounds General Skin Exam: Negative for jaundice or pallor MDM MDM MDM Narrative Medical decision making narrative: Differential diagnosis would include dysfunctional bleeding, threatened miscarriage, ectopic , gynecologic neoplasm. Will obtain serum , CBC and will need to perform pelvic. CBC to assess white count and H&H. Lab Data Attestation: I reviewed the patient's lab results. Lab results narrative: CBC is remarkable for slight lymphocytosis otherwise unremarkable. Serum test is negative. Labs: Laboratory Results - last 24 hr 08/04/24 08/04/24 06:55 08:25 WBC 3.3 L RBC 4.16 L Hgb 13.8 Hct 39.7 MCV 95.4 MCH 33.2 H MCHC 34.8 RDW Std Deviation 45.1 H RDW Coeff of Darci 12.9 Plt Count 212 MPV 8.5 Immature Gran % (Auto) 0.600 Neut % (Auto) 41.2 L Lymph % (Auto) 45.1 H [place] % (Auto) 10.7 H Eos % (Auto) 1.8 Baso % (Auto) 0.6 Absolute Neuts (auto) 1.4 L Absolute Lymphs (auto) 1.48 Nucleated RBC % 0 Serum , Qual NEGATIVE POC Glucose 85 Radiography Diagnostic Testing: Clinical Impression(s) from Imaging Studies Transvaginal US 08/04/24 08:44 IMPRESSION: Heterogeneous appearance of the uterus with 2 fibroids as described. Follicle in the left ovary. Trace amount of free fluid in the cul-de-sac. Electronically Signed: Luis Carlos Boone MD at 10:04 EDT , Treatment and Re-Evaluation Narrative: Patient was informed of her laboratory results and ultrasound results. Patient was discharged to home. 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 Torres. Discharge Plan Triage Chief Complaint: Vag Bleeding ED Provider: Norman Wilson Dx/Rx/DC Orders Clinical Impression: Abnormal vaginal bleeding, Intramural uterine fibroid, Ovarian cyst, Pelvic p ain Instructions: ED Dysfunctional Uterine Bleeding, ED Ovarian Cyst, ED Uterine Fibroids Primary Care Provider: Lisandro Simons Referrals: Morenita Delgado MD [Med Staff - Active Staff] - 1-2 Weeks Lisandro Simons MD [Primary Care Provider] - Activity Restrictions/Additional Instructions: 1. If you are bleeding more than 1 pad per hour for 4 straight hours return to the emergency department 2. You may take either ibuprofen or Aleve for your discomfort Print Language: Montenegrin Disposition Disposition: Home, Self Care
--- NOTE | 2024-08-04 08:44 | US_ITS ---
STUDY: ULTRASOUND OF THE FEMALE PELVIS - COMPLETE REASON FOR EXAM: Female, 44 years old. Abnormal vaginal bleeding LMP: July 21, 2024. TECHNIQUE: Transvaginal TECHNICAL QUALITY: Adequate. COMPARISON: Comparison is made with prior study dated November 21, 2023. FINDINGS: The uterus is anteverted and is in a midline position. The uterus measures 8.5 cm x 6.2 cm x 4.6 cm. Normal uterine cervix. The endometrium measures 7.5 mm in thickness, and is hyperechoic. There is no demonstrated endometrial mass. There is a 2.3 cm x 2.1 cm x 1.7 cm uterine fibroid is smaller fibroid is also seen measuring 1.1 cm x 1.1 cm x 0.8 cm. I.U.D. - The patient does not have an I.U.D. The right ovary is visualized. The right ovary measures 2.1 cm x 2.2 cm x 1.2 cm. There is no right ovarian cyst or ovarian mass. There is no visualized right adnexal mass or complex lesion. There is normal arterial and normal venous vascularity. The left ovary is visualized. The left ovary measures 2.4 cm x 2.5 cm x 1.2 cm. There is a 1.5 cm x 1.5 cm x 0.6 cm follicular cyst. There is no visualized left adnexal mass or complex lesion. There is normal arterial and normal venous vascularity. There is minimal fluid in the cul-de-sac. US/Transvaginal Non- IMPRESSION: Heterogeneous appearance of the uterus with 2 fibroids as described. Follicle in the left ovary. Trace amount of free fluid in the cul-de-sac. Electronically Signed: Luis Carlos Boone MD at 10:04 EDT ,
[2024-08-04 08:46] LABS: Bedside Glucose 85 mg/dL (74-106)
[2024-08-04 09:00] VITALS: BP 105/78; PULSE 78; RESP 16; O2SAT 98
[2024-08-04 10:52] VITALS: BP 105/78; PULSE 78; RESP 16; TEMP 36.6; O2SAT 98
== END 2024-08-04 10:56 | disposition home or self-care (01) ==
PROVIDERS: Emergency Provider Emergency Medicine; PCP Family Medicine; Visit Provider Emergency Medicine
DX: N93.9 Abnormal uterine and vaginal bleeding, unspecified (principal); D25.1 Intramural leiomyoma of uterus; Z87.891 Personal history of nicotine dependence; N83.202 Unspecified ovarian cyst, left side
CPT/HCPCS: 76830; 82962; 84703; 85025; 99283; A4216

== ENCOUNTER 2024-12-28 23:01 | Emergency (ER) | payer MEDICAID, SELFPAY ==
[2024-12-28 23:02] VITALS: PULSE 91; RESP 17; TEMP 36.5; O2SAT 98; BMI 21.7
--- NOTE | 2024-12-28 23:25 | EDS_ITS ---
HPI History of Present Illness Chief Complaint: Other, Pain/Inj Narrative Narrative: Chief complaint and HPI: Left neck pain. 44-year-old female with past medical history of IBS presents for evaluation of left neck pain. 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 She states on Sunday she was placed in an awkward position with her neck and felt that it spasmed at that time. She states the pain did not improve so she saw a chiropractor on Sunday. She states that he used a massage therapy garden. He did not do any manipulations such as cracking or twisting of the neck. She states the pain still did not improve so she returned and again the massage gun was used. She has not been taking anything for the pain other than 1 dose of ibuprofen. She has tried ice and heat without any relief. She denies any fever, chills, numbness, tingling, weakness. Denies any trauma to the neck. Review of systems: See HPI Medications: As listed on the chart Allergies: As listed on the chart PFSH: Per chart Vital signs: As listed on the chart. Reviewed. Physical exam: Gen: A&O x3, NAD Head: Normocephalic, atraumatic Eyes: No sclera icterus, conjunctiva clear, PERRL, EOMI ENT: Moist mucous membranes Neck: Trachea midline, No JVD, full range of motion, no midline spinal tenderness, no bony step-offs, no signs of cellulitis or ecchymosis, patient's trapezius muscle is tense on the left and reproduces patient's pain with palpat ion CV: RRR, no murmurs, no peripheral edema Resp: Lungs CTA BL, no w/r/c Musc: Full ROM, no deformity, strength plus 5 out of 5 in the upper extremities, radial and ulnar pulse +2 Skin: Warm, dry Neuro: Alert, oriented, grossly intact, sensation intact Psych: Cooperative, appropriate mood and affect [facility] Medical History IBS (irritable bowel syndrome) Anxiety Home Medications ?Medication ?Instructions ?Recorded ?Last Taken ?Type NK 12/28/24 Unknown History Allergy/AdvReac Type Severity Reaction Status Date / Time codeine Allergy Unknown Verified 12/28/24 23:02 Surgical History History of tubal ligation History of tonsillectomy Social History household members: children Smoking Status: Former smoker alcohol intake: current alcohol intake frequency: holidays/special occasions only substance use type: does not use EXAM Physical Exam Const Vital Signs: 12/28/24 23:02 12/28/24 23:02 Temperature 97.7 F L Temperature Source Oral Pulse Rate 91 Respiratory Rate 17 Respiratory Pattern Normal Pulse Ox 98 MDM MDM MDM Narrative Medical decision making narrative: 44-year-old female with past medical history of IBS presents for evaluation of left neck pain. Patient denies any fever, chills, numbness, tingling, weakness. Denies any trauma to the neck. On physical exam patient has a tense left trapezius muscle. With palpation this recreates her pain. Given that she had no direct trauma to the neck as well as no manipulation at the chiropractor I do not think any imaging is needed at this time. I suspect muscle spasm/strain. Patient given IM Toradol and Valium. I will reevaluate the patient. Patient declined IM Toradol and is requesting p.o. Toradol. I do think this is appropriate. P.o. Toradol ordered. On reevaluation, patient states her pain is improved. Patient is stable to discharge home. She will be getting a ride home. Patient was educated that she will be discharged home on Flexeril prescription. She is educated not to drive or operate heavy machinery as these can make you fatigued. She confirmed understanding. She was educated on ibuprofen as needed for pain. Follow-up with PCP. Return precautions explained. Impression: 1. Left neck spasm Discharge Plan Triage Chief Complaint: Other, Pain/Inj ED Provider: Darron Laughlin Dx/Rx/DC Orders Prescriptions: No Action NK Primary Care Provider: Lisandro Simons Referrals: Lisandro Simons MD [Primary Care Provider] - Print Language: Tuvaluan
[2024-12-28] MEDS: diazePAM 2 MG Tablet PO (23:59)
[2024-12-28] MEDS: Ketorolac 10 MG Tablet 15 MG PO (23:59)
--- NOTE | 2024-12-29 00:46 | ED.RN ---
This RN witnessed the patient get into the car with her son. Her Son was driving.
== END 2024-12-29 00:47 | disposition home or self-care (01) ==
PROVIDERS: Emergency Provider Surgery; PCP Family Medicine; Visit Provider Surgery
DX: M62.838 Other muscle spasm (principal); Z87.891 Personal history of nicotine dependence; M54.2 Cervicalgia
CPT/HCPCS: 99283

== ENCOUNTER 2025-01-12 00:59 | Emergency (ER) | payer MEDICAID, SELFPAY ==
[2025-01-12] VITALS (7 sets, daily range): BP systolic 90–109; BP diastolic 62–69; PULSE 79–98; RESP 14–18; TEMP 36.6–37.4; O2SAT 97–99; BMI 21.4
--- NOTE | 2025-01-12 01:28 | EKG12_ITS ---
Test Reason : CP Blood Pressure : */* mmHG Vent. Rate : 92 BPM Atrial Rate : 92 BPM P-R Int : 136 ms QRS Dur : 72 ms QT Int : 370 ms P-R-T Axes : 74 12 61 degrees QTcB Int : 457 ms Normal sinus rhythm Normal ECG Confirmed by Ze Fleming ([id number]), continuity editor MANAS NAVARRETE ([id number]) on 01/12/2025 10:35:43 AM Referred By: DOMENICO Confirmed By: Ze Fleming
[2025-01-12 01:39] LABS: Absolute Neutrophil Count 7.6 X10^3/uL (2.0-7.7); Basophil# 0.02 X10^3/uL; Basophil% 0.2 % (0-1); Eosinophil# 0.02 X10^3/uL; Eosinophils% 0.2 % (0-5); Hematocrit 36.7 % (37-47); Hemoglobin 13.1 g/dL (12.0-15.0); Lymphocyte % 7.7 % (19-41); Mean Corp Hgb Conc 35.7 g/dL (32-36); Mean Corpuscular Hgb 33.2 pg (27.0-32.0); Mean Corpuscular Volume 93.1 fL (81-99); Mean Platelet Vol. 9.1 fl (6.2-12.0); Monocyte# 0.75 X10^3/uL; Monocyte% 8.2 % (0-10); NRBC Flagged by Analyzer 0 % (0-5); Neutrophil % 83.2 % (47-70); Platelet Count 218 K/mm3 (150-450); RBC Distribution Width CV 12.6 % (11.6-14.6); RBC Distribution Width SD 42.9 fl (35.1-43.9); Red Blood Count 3.94 M/mm3 (4.2-5.4); White Blood Count 9.1 K/mm3 (4.4-11.0)
--- NOTE | 2025-01-12 01:50 | RAD_ITS ---
PROCEDURE: CHEST PA AND LATERAL REASON FOR EXAM: Chest pain TECHNIQUE: Frontal and lateral views of the chest. COMPARISON: 10/28/2023 FINDINGS: The lungs are clear. The cardiac and mediastinal contours are within limits. Pulmonary vascularity appears within limits. No pneumothorax or pleural effusion. Visualized osseous structures appear within limits. RAD/Chest PA and Lateral IMPRESSION: No evidence of acute disease. Reading Location: [id number]
[2025-01-12 02:04] LABS: Anion Gap 9 (5-15); BUN 7 mg/dL (7-18); BUN/Creat Ratio 10.7 RATIO (10-20); Calcium,Total 8.8 mg/dL (8.5-10.1); Chloride 106 mmol/L (98-107); Creatinine, Serum 0.65 mg/dL (0.55-1.02); EST Glomerular Filtration Rate 105 mL/min (>60); Est Glom Filt Rate - Afr Amer 127 mL/min (>60); Estimated Creatinine Clearance 96.37 ml/min; Glucose 108 mg/dL (74-106); Potassium 3.4 mmol/L (3.5-5.1); Sodium Level 137 mmol/L (136-145); Troponin-I HS (w/2H Reflex) 6 pg/mL (3.0-54.0)
[2025-01-12 03:36] LABS: Reflex Troponin-HS? (from REC) Y
[2025-01-12 04:31] LABS: Troponin-I HS 5 pg/mL (3.0-54.0)
[2025-01-12] MEDS: AMOXICILLIN 500 MG CAPSULE 1000 MG PO (04:51)
--- NOTE | 2025-01-12 05:04 | EDS_ITS ---
HPI History of Present Illness Chief Complaint: Chest Pain Informant: patient Narrative Narrative: Presents chest pain this evening. No cough. Yesterday increasing sore throat. Having myalgias. No fevers. Tonsillectomy in the past. No tobacco history. No hypertension diabetes or hyperlipidemia. No family history of MIs at young age. History of IBS. Prior Similar Symptoms: No CVD Risk Factors: Negative for Hypertension, Diabetes, Hypercholesterolemia, Family History 1' </=55 or Smoking PE Risk Factors: Negative for Recent Travel/Surgery, Recent Immobilization, Prior DVT or PE or Cancer [facility] Medical History IBS (irritable bowel syndrome) Anxiety Home Medications ?Medication ?Instructions ?Recorded ?Last Taken ?Type amoxicillin 500 mg tablet 1,000 mg (2 x 500 mg) PO RICHARD LY #18 01/12/25 Unknown Rx tabs Allergy/AdvReac Type Severity Reaction Status Date / Time codeine Allergy Unknown Verified 01/12/25 00:59 Family History no significant family his Surgical History History of tubal ligation History of tonsillectomy Social History household members: children Smoking Status: Former smoker alcohol intake: current alcohol intake frequency: holidays/special occasions only substance use type: does not use ROS ROS ED Constitutional Constitutional ED: Denies chills, fever(s) or sweats ENT ENT ED: Reports sore throat Cardiovascular Cardiovascular: Reports chest pain; Denies leg edema, palpitations or racing heartbeat Respiratory/Chest Respiratory/Chest: Denies cough, dyspnea or dyspnea on exertion Gastrointestinal Gastrointestinal: Denies abdominal pain, diarrhea, nausea or vomiting Genitourinary Genitourinary ED: Denies dysuria, hematuria or urinary frequency Musculoskeletal Musculoskeletal: Reports myalgias; Denies back pain, extremity pain or neck pain Integumentary Denies rash or wounds Neurologic Neurologic: Denies headache(s), paresthesias or weakness EXAM Physical Exam Const Vital Signs: 01/12/25 04:00 01/12/25 04:54 01/12/25 05:00 Temperature 98 F Pulse Rate 86 79 79 Respiratory Rate 16 16 18 Blood Pressure 99/65 90/63 90/63 Blood Pressure Mean 76 72 72 Pulse Ox 98 99 99 Oxygen Delivery Method Room Air Room Air Positive well nourished and well developed General Appearance ED: well developed and NAD HEENT Reports moist mucous membranes HEENT Narrative: Tonsils absent erythema on tonsillar pillars with exudates. No trismus. normocephalic and atraumatic Eyes General Eye ED: Yes normal appearance of both eyes Neck full ROM Chest Wall Chest: Negative for tenderness Resp normal respiratory effort and normal air movement Effort and Inspection: symmetric chest movement; Negative for respiratory distress Cardio regular rate, regular rhythm and no murmurs Peripheral Pulses: pulses 2+ throughout GI normal to inspection, nondistended, normoactive bowel sounds and non-tender Palpation: Negative for guarding or rebound tenderness present Extremity normal to inspection General Extremety ED: Negative for edema or tenderness General Extremity: Negative for edema Neuro oriented x3 and no sensory deficits noted Sensorium / Orientation: awake and alert Skin no rashes or lesions noted and no wounds Heart Score History: Slightly/Non-Suspicious ECG: Normal Age: >45 - <65 years Risk Factors: 1 or 2 Risk Factors Troponin: </= Normal Limit Score: 2 MDM MDM MDM Narrative Medical decision making narrative: Interventions / MDM: Differential diagnosis: Atypical chest pain, strep pharyngitis Diagnosis considered but do not suspect: Pulm embolism however PERC criteria negative. ACS however EKG and cardiac enzymes negative. My EKG interpretation: Sinus rate of 92, no ST or T wave changes. Imaging independently reviewed and interpreted by myself: 2 view chest x-ray: No acute process. Also read by radiology. External documents reviewed: N/A Test considered but not ordered:N/A ED course: Patient clinical pharyngitis with exudates. Strep test sent, dexamethasone ordered. With her chest pains. EKG obtained sinus rhythm no acute findings. Cardiac workup initiated. Chest x-ray negative. Cardiac enzymes negative x 2. Strep returned positive. COVID, flu, RSV negative. Initial discussion for treatment she agreed with IM Bicillin however then changed her mind. Started on amoxicillin orally. First dose in the ED. Prescription sent to her pharmacy. Outpatient follow-up. All questions were answered. Re-evaluation: stable Disposition discussed with patient/family/significant other: Patient Case discussed with consulting clinician: N/A This note was generated with [employer] software. It may contain incorrect words, spelling, and punctuation that were not noted in checking the note before signing. Lab Data Attestation: I reviewed the patient's lab results. Labs: Laboratory Results - last 24 hr 01/12/25 04:03 Troponin I High Sens 5 Radiography Diagnostic Testing: Clinical Impression(s) from Imaging Studies Chest X-Ray 01/12/25 01:50 IMPRESSION: No evidence of acute disease. Reading Location: [facility] Discharge Plan Triage Chief Complaint: Chest Pain Other Complaint: Sore Throat ED Provider: Will Castanon Dx/Rx/DC Orders Clinical Impression: Strep pharyngitis, Chest pain Instructions: ED Chest Pain, Noncardiac, ED Pharyngitis, Strep (Confirmed) Prescriptions: New amoxicillin 500 mg tablet 1,000 mg PO DAILY Qty: 18 0RF Stand Alone Forms: ED Work / School Excuse Primary Care Provider: Lisandro Simons Referrals: Lisandro Simons MD [Primary Care Provider] - 1-2 Weeks Activity Restrictions/Additional Instructions: Strep test positive. COVID, flu, RSV negative. Cardiac workup negative. Chest x-ray negative. Take and finish antibiotic as prescribed. Print Language: Mongolian Disposition Disposition: Home, Self Care Discharge Date/Time: 01/12/25 05:20
== END 2025-01-12 05:20 | disposition home or self-care (01) ==
PROVIDERS: Emergency Provider Emergency Medicine; PCP Family Medicine; Visit Provider Emergency Medicine
DX: J02.0 Streptococcal pharyngitis (principal); R07.9 Chest pain, unspecified; Z87.891 Personal history of nicotine dependence
CPT/HCPCS: 71046; 80048; 84484; 85025; 87631; 87651; 93005; 99284; A4216

== ENCOUNTER 2025-10-14 02:48 | Emergency (ER) | payer MEDICAID, SELFPAY ==
[2025-10-14 02:49] VITALS: BP 118/80; PULSE 72; RESP 16; TEMP 36.7; O2SAT 100; BMI 20.8
--- NOTE | 2025-10-14 03:00 | CT_ITS ---
PROCEDURE: ABDOMEN/PELVIS W IV CONT ONLY 10/14/2025 REASON FOR EXAM: RLQ ABD PAIN TECHNIQUE: Procedure Code: [id number] Modality: CT Procedure: ABDOMEN/PELVIS W IV CONT ONLY Coronal and Sagittal reconstruction series were provided. CONTRAST: OMNIPAQUE 350 VOLUME: 100 mL One or more dose reduction techniques were used (e.g., Automated exposure control, adjustment of the mA and/or kV according to patient size, use of iterative reconstruction technique. RADIATION DOSE SUMMARY: CTDlvol: 6.4 mGy DLP: 312 mGycm COMPARISON: CT scan on 11/19/2023. FINDINGS: Right ovarian cyst measuring 1.8 cm. Right ovarian cyst measuring 3.2 cm. Bilateral tubal clips are noted. 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 Mild amount of free fluid is noted in the pelvis. Mild thickening of the sigmoid colon. Underdistention, spasm versus mild colitis. Moderate amount of fecal residue in the large bowels. The visualized lung bases are unremarkable. Normal liver. Normal gallbladder and extrahepatic biliary system. Normal spleen. Normal pancreas. Normal bilateral adrenal glands. Normal size of the right kidney. There is no right renal mass. There are no right renal calculi. There is no right hydronephrosis. Normal visualized right ureter. Normal size of the left kidney. There is no left renal mass. There are no left renal calculi. There is no left hydronephrosis. Normal visualized left ureter. Normal visualized stomach. Normal small intestine. The appendix is visualized and appears normal. Normal abdominal aorta. Normal inferior vena cava. Normal retroperitoneum. Normal urinary bladder. There is no pelvic mass lesion or lymphadenopathy. Normal abdominal wall. Normal osseous structures. CT/Abdomen/Pelvis W IV Cont ONLY IMPRESSION: Right ovarian cyst measuring 1.8 cm. Right ovarian cyst measuring 3.2 cm. Bilateral tubal clips are noted. 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 Mild amount of free fluid is noted in the pelvis. Mild thickening of the sigmoid colon. Underdistention, spasm versus mild colit is. Moderate amount of fecal residue in the large bowels. Reading Location: [place] [id number]
[2025-10-14] MEDS: Ketorolac 30 MG/ML Syringe IV (03:04)
[2025-10-14] MEDS: 0.9% Normal Saline (1000mL) 1,000 ML 999 ML IV (03:04)
[2025-10-14 03:11] LABS: Hematocrit 38.6 % (37-47); Hemoglobin 13.3 g/dL (12.0-15.0); Immature Granulocytes Count 0.010 X10^3/uL (0.0-0.0); Mean Corp Hgb Conc 34.5 g/dL (32-36); Mean Corpuscular Volume 95.1 fL (81-99); Mean Platelet Vol. 8.9 fl (6.2-12.0); NRBC Flagged by Analyzer 0 % (0-5); Platelet Count 220 K/mm3 (150-450); RBC Distribution Width CV 12.4 % (11.6-14.6); RBC Distribution Width SD 43.1 fl (35.1-43.9); Red Blood Count 4.06 M/mm3 (4.2-5.4); White Blood Count 4.4 K/mm3 (4.4-11.0)
[2025-10-14 03:15] LABS: Internal QC Validated? YES +Cl - CLEAR BKGD; Pregnancy, Serum, hCG Quali. NEGATIVE Negative; Record Kit Lot#, Serum Preg. 0000980607
[2025-10-14 03:26] LABS: AST(SGOT) 17 U/L (<=31); Alanine Aminotransfer ALT/SGPT 10 U/L (<=34); Albumin, Serum 4.1 g/dL (3.5-5.0); Alkaline Phosphatase 40 U/L (35-104); Anion Gap 9 (5-15); BUN 13 mg/dL (4-19); BUN/Creat Ratio 16.4 RATIO (10-20); Bilirubin, Direct 0.30 mg/dL (0.00-0.30); Calcium,Total 8.6 mg/dL (7.6-11.0); Carbon Dioxide 25.3 mmol/L (21.0-32.0); Chloride 105 mmol/L (98-108); Estimated Creatinine Clearance 78.47 ml/min (50-250); Globulin 2.1 g/dL (2.2-4.2); Glucose 93 mg/dL (70-99); Lipase 78 U/L (13-75); Potassium 3.6 mmol/L (3.3-5.1)
--- OUTSIDE RECORDS SUMMARY | 2025-10-14 03:33 | XMS RPT_ITS | CCD ---
Author Organization [facility] Care Team Providers Care Yam Curer Name Role Phone Leia Simons MD Primary Care Provider MONSE GOVEA Admitting Unavailable MONSE GOVEA Attending Unavailable MONSE GOVEA Referring Unavailable SIMONS, LEIA A Primary Care Unavailable MONSE GOVEA Attending Unavailable SIMONS, LEIA A Primary Care Unavailable SIMONS, LEIA A Referring Unavailable HAURY, AURELIA Referring Unavailable SIMONS, LEIA A Primary Care Unavailable MONSE GOVEA Referring Unavailable SIMONS, LEIA A Primary Care Unavailable Simons, Leia Primary Care Unavailable Darron Laughlin Attending UnavailNorman Barker Attending Unavailable Simons, Leia Primary Care Unavailable Simons, Leia Primary Care Unavailable Will Castanon Attending Unavailable Flor SUH, Misa Attending Unavailable Simons, Leia Primary Care Unavailable Leia Simons MD Primary Care Provider SIMONS, LEIA A Primary Care Unavailable HAURY, AURELIA Referring Unavailable SIMONS, LEIA A Primary Care Unavailable HAURY, AURELIA Referring Unavailable HAURY, AURELIA Referring Unavailable SIMONS, LEIA A Primary Care Unavailable SIMONS, LEIA A Primary Care Unavailable IVON PARMAR Referring Unavailable HAURY, AURELIA Attending Unavailable SIMONS, LEIA A Primary Care Unavailable SIMONS, LEIA A Primary Care Unavailable ANURADHA KRISHNAN Attending Unavailable LINDA MORELAND Attending Unavailable SELF Referring Unavailable SIMONS, LEIA A Primary Care Unavailable NEREYDA RUFFIN Attending Unavailable SIMONS, LEIA A Primary Care Unavailable VERONICA CLAROS Attending Unavailable SIMONS, LEIA A Primary Care Unavailable KENNETH WELLS Referring Unavailable SELF Referring Unavailable NEREYDA RUFFIN Attending Unavailable SIMONS, LEIA A Primary Care Unavailable SANDY BARAJAS MD Attending Unavailable Allergies Allergy Classification Reported Allergen(s) Allergy Type Date of Onset Reaction(s) Facility (20 sources) Codeine; Translations: [CODEINE] Drug Allergy 10-01-2008 [facility] Work Phone: (20 sources) nickel; Translations: [NICKEL] Drug Allergy 11-07-2011 [facility] Work Phone: (20 sources) Latex; Translations: [LATEX] Drug Allergy 02-13-2023 [facility] (1 source) Codeine Drug Allergy 01-12-2025 [facility] Repository Medications Current Medications Medication Drug Class(es) Dates Sig (Normalized) Sig (Original) amoxicillin 500 mg oral capsule (2 sources) Penicillin-class Antibacterial Start: 11-04-2022 End: 11-14-2022 take 1 capsule by mouth twice daily amoxicillin (POLYMOX, AMOXIL) 500 mg capsule Take 1 capsule by mouth twice daily for 10 days. 20 capsule 0 11/04/2022 11/14/2022 Active Comment on above: Take 1 capsule by mo [facility] twice daily for 10 days. amoxicillin 875 mg / clavulanate 125 mg oral tablet (16 sources) Penicillin-class Antibacterial Start: 10-02-2024 take 1 tablet by mouth twice daily amoxicillin-clavu lanate potassium (AUGMENTIN) 875-125 mg per tablet Take 1 tablet by mouth two times a day. 10/02/2024 Active enteric contrast (will be provided with radiology test) (1 source) Start: 08-04-2024 End: 08-05-2024 enteric contrast (will be provided with radiology test) For CT ABD/PEL W IVCON Routine order Administer, As Directed One Time Only, via Oral, Rectal, both Oral and Rectal, Enteric Tube, Stoma or Indwelling Catheter, Enteric Contrast as designated per enteric contrast guidelines 1 Each 08/04/2024 08/05/2024 Active fluconazole 150 mg oral tablet (18 sources) Azole Antifungal Start: 10-09-2024 End: 10-09-2024 take 1 tablet by mouth once fluconazole (DIFLUCAN) 150 mg tablet Indications: Yeast vaginitis Take 1 tablet by mouth one time only for 1 dose. 1 tablet 10/09/2024 10/09/2024 Active Start: 06-07-2023 End: 06-07-2023 take 1 tablet by mouth once fluconazole (DIFLUCAN) 150 mg tablet Indications: Vagina itching Take 1 tablet by mouth one time only for 1 dose. 1 tablet 0 06/07/2023 06/07/2023 Active Start: 11-08-2022 End: 09-20-2023 fluconazole (DIFLUCAN) 150 m g tablet Indications: Vaginal yeast infection Take 1 tablet by mouth as directed. Take one tablet on Day 1, 4 and 7. 3 tablet 11/08/2022 09/20/2023 Discontinued Comment on above: Take 1 tablet by maurisio as directed. Take one tablet on Day 1, 4 and 7. Take 1 tablet by maurisio one time only for 1 dose. iv contrast (will be provided with radiology test) (1 source) Start: 4 End: iv contrast (will be provided with radiology test) CT ABD/PEL -Inject, intravenously, once for 1 dose.No IV access, insert saline lock prior to the beginning of sedation, infusion, injection of imaging exam. Discontinue saline lock post exam. If Pt. has a central line or IVAD, may access for administration according to line specific nursing protocol. Once exam is complete flush line and de-access according to line specific nursing protocol in the CT contrast administration guidelines link. 1 Each 08/04/2024 08/05/2024 Active L.acidophilus-L.rha mnosus (FLORAJEN WOMEN) 15 billion cell capsule (12 sources) Start: 4 End: 4 take 1 capsule by mouth once daily L.acidophilus-L.rhamnos us (FLORAJEN WOMEN) 15 billion cell capsule Take 1 capsule by mouth once daily. 90 capsule 3 01/28/2024 09/26/2024 Discontinued (Course of therapy completed) Start: 01-28-2024 take 1 capsule by mo ut once daily L.acidophilus-L.rhamnosus (FLORAJEN WOME N) 15 billion cell capsule Take 1 capsule by mouth once daily. 90 capsule 3 01/28/2024 Active Comment on above: Take 1 capsule by mo ut once daily. lactobacillus acidophilus 460 mg oral capsule (20 sources) Start: 4 End: 5 take 1 capsule by mouth once daily Lactobacillus acidophilus (FLORAJEN ACIDOPHILUS) 20 billion cell capsule Take 1 capsule by mouth once daily. 30 capsule 5 02/02/2025 Active End: 10-08-2024 Lactobacillus acidophilus (P ROBIOTIC) 10 billion cell cap Take by mouth once daily. 10/08/2024 Discontinued Comment on above: Take by mouth once d aily. linaclotide 0.145 mg oral capsule (8 sources) Guanylate Cyclase-C Agonist Start: take 1 capsule by mouth once daily Linaclotide (Linzess) 145 mcg capsule Active 145 MCG PO DAILY October 28, 2023 12:00am take 1 capsule by mouth once justina ly linaCLOtide (LINZESS) 72 mcg capsule Take 1 capsule by mouth once daily. Administer on an empty stomach. Swallow whole; DO NOT crush or chew. 0 Active Comment on above: Take 1 capsule by mo [facility] once daily. Administer on an empty stomach. Swallow whole; DO NOT crush or chew. MEDICATION, NON-DATABASE (20 sources) MEDICATION, NON- DATABASE 2 capsules once daily. BIO CLEANSE SUPPLEMENT WITH MAGNESIUM Active MEDICATION, NON- DATABASE 2 capsules once daily. BIO CLEANSE SUPPLEMENT WITH MAGNESIUM 0 Active Comment on above: 2 capsules once juanito y. BIO CLEANSE SUPPLEMENT WITH MAGNESIUM metroNIDAZOLE 500 mg oral tablet (4 sources) Nitroimidazole Antimicrobial Start: 06-03-20 End: 06-10-20 take 1 tablet by mouth twice daily metroNIDAZOLE (FLAGYL) 500 mg tablet Take 1 tablet by mouth twice daily for 7 days. 14 tablet 0 06/03/2023 06/10/2023 Active Start: 02-13-2023 End: 02-20-2023 take 1 tablet by mouth twice daily metroNIDAZOLE (FLAGYL) 500 mg tablet Take 1 tablet by mouth twice daily for 7 days. 14 tablet 0 02/13/2023 02/20/2023 Active Comment on above: [facility] nitrofurantoin, macrocrystals 25 mg / nitrofurantoin, monohydrate 75 mg oral capsule (9 sources) Nitrofuran Antibacterial Start: 06-02-20 End: 06-07-20 take 1 capsule by mouth twice daily nitrofurantoin monohydrate and macrocrystal (MACROBID) 100 mg capsule Take 1 capsule by mouth twice daily for 5 days. 10 capsule 0 06/02/2023 06/07/2023 Active Start: 04-16-2021 End: 04-23-2021 take 1 capsule by mouth every twelve hours at mealtime Nitrofurantoin Monohyd/M-Cryst Discontinued 1 CAP PO Q12H 14 7 April 15, 2021 11:00pm April 22, 2021 11:01pm administer with a meal/food; swallow whole; do not open, crush, dissolve , or chew Comment on above: Take 1 capsule by mo ut twice daily for 5 days. Hydro (Nk) (2 sources) Start: 09-30-2022 Hydro (Nk) Active September 30, 2022 12:00am norethindrone acetate 5 mg oral tablet (2 sources) Start: 08-04-2024 End: 09-26-2024 norethindrone (AYGESTIN) 5 mg tablet Indications: abnormal uterine bleeding due to hormonal imbalance Take 1 tablet TID until bleeding stops, the BID x 3 days, the daily x 3 days. 35 tablet 08/04/2024 09/26/2024 Discontinued (Course of therapy completed) pseudoephedrine hydrochloride 60 mg oral tablet (5 sources) alpha-Adrenergic Agonist Start: 07-22-2024 End: 09-26-2024 SUDOGEST 60 mg tablet Take 60 mg by mouth. 07/22/2024 09/26/2024 Discontinued (Course of therapy completed) sertraline 25 mg oral tablet (9 sources) Serotonin Reuptake Inhibitor Start: 10-28-2023 Sertraline (Zoloft) 25 mg tablet Active 12.5 MG PO DAILY October 28, 2023 12:00am sertraline (ZOLO FT) 25 mg tablet Take 25 mg by mouth once daily. Patient took 12.5mg of zoloft 0 Active Comment on above: Take 25 mg by mouth once daily. Patient took 12.5mg of zoloft Completed/Discontinued Medications Medication Drug Class(es) Dates Sig (Normalized) Sig (Original) betamethasone 0.5 mg/ml / clotrimazole 10 mg/ml topical cream (19 sources) Azole Antifungal, Corticosteroid Start: 05-04-2021 End: 09-20-2023 clotrimazole-beta methasone (LOTRISONE) cream Indications: Acute vaginitis , Labia irritation Apply 1 application to affected area twice daily. 15 g 2 05/04/2021 09/20/2023 Discontinued Comment on above: Apply 1 application to affected area twice daily. FLUoxetine 10 mg oral tablet (2 sources) Serotonin Reuptake Inhibitor Start: 11-01-2023 FLUoxetine 10 mg tablet fluticasone propionate 0.05 mg/actuat metered dose nasal spray (18 sources) Corticosteroid Start: 07-22-2024 End: 02-02-2025 take 2 spray(s) nasal route once daily fluticasone (FLONASE) 50 mcg/actuation nasal spray Use 2 Sprays in each nostril once daily. 07/22/2024 02/02/2025 Discontinued (Discontinued by Patient) L. acidophilus-L. rhamnosus 15 billion cell cap (20 sources) Start: 11-07-2022 End: 01-21-2024 take 1 capsule by mouth once daily L. acidophilus-L. rhamnosus 15 billion cell cap Indications: Vaginal itching , Vaginal discharge Take 1 capsule by mouth once daily. FLORAJEN WOMEN. If on antibiotic, take at least 1-2 hours before or after antibiotic. KEEP REFRIGERATED 30 capsule 11 11/07/2022 01/21/2024 Discontinued Start: 11-07-2022 take 1 capsule by mo uth once daily L. acidophilus-L. rhamnosus 15 billion cell cap Indications: Vaginal itching , Vaginal discharge Take 1 capsule by mouth once daily. FLORAJEN WOMEN. If on antibiotic, take at least 1-2 hours before or after antibiotic. KEEP REFRIGERATED 30 capsule 11 11/07/2022 Active Start: 05-04-2021 End: 11-07-2022 take 1 capsule by mouth once daily L. acidophilus-L. rhamnosus 15 billion cell cap Indications: Acute vaginitis Take 1 capsule by mouth once daily. FLORAJEN WOMEN. If on antibiotic, take at least 1-2 hours before or after antibiotic. KEEP REFRIGERATED 30 capsule 11 05/04/2021 11/07/2022 Discontinued Start: 05-04-2021 take 1 capsule by mo uth once daily L. acidophilus-L. rhamnosus 15 billion cell cap Indications: Acute vaginitis Take 1 capsule by mouth once daily. FLORAJEN WOMEN. If on antibiotic, take at least 1-2 hours before or after antibiotic. KEEP REFRIGERATED 30 capsule 11 05/04/2021 Active Comment on above: Take 1 capsule by mo [facility] once daily. FLORAJEN WOMEN. If on antibiotic, take at least 1-2 hours before or after antibiotic. KEEP REFRIGERATED Lactobac no.41/Bifidobact no.7 (PROBIOTIC-10 ORAL) (16 sources) Lactobac no.41/Bifidobact no.7 (PROBIOTIC-10 ORAL) Take by mouth. Plexus 0 Active Comment on above: Take by mouth. Plexu s Pediatric Multivitamin No.76 (5 sources) Start: 11-24-19 End: 12-19-19 Pediatric Multivitamin No.76 Discontinued 2 EACH PO DAILY November 24, 2014 12:00am December 19, 2019 11:55am polyethylene glycol 3350 36478 mg powder for oral solution (5 sources) Osmotic Laxative Start: 11-24-19 polyethylene glycol 3350 (HEALTHYLAX) 17 gram packet Take by mouth. 0 11/24/2014 Active Comment on above: Take by mouth. potassium citrate 5 meq extended release oral tablet (2 sources) Start: 10-02-20 take 1 tablet by mouth every twelve hours potassium citrate ER (UROCIT-K) 5 mEq (540 mg) TbER Take 1 tablet by mouth every 12 hours. 0 10/02/2023 Active Comment on above: Take 1 tablet by maurisio every 12 hours. traZODone hydrochloride 50 mg oral tablet (2 sources) Serotonin Reuptake Inhibitor Start: 10-25-20 take 0.5 tablet by mouth at bedtime for sleep traZODone (DESYREL) 50 mg tablet take 1/2 tablet by mouth at bedtime for sleep 0 10/25/2023 Active Comment on above: take 1/2 tablet by out at bedtime for sleep Problems Active Problems Problem Classification Problem Date Documented Da te Episodic/Chronic Allergic reactions (5 sources) Allergic condition; Translations: [Allergy, unspecified, initial encounter] 03-06-2021 Episodic Blindness and vision defects (5 sources) Eye / vision finding; Translations: [Unspecified visual disturbance] 10-08-2022 Episodic Genitourinary symptoms and ill-defined conditions (6 sources) Increased frequency of urination; Translations: [Frequency of micturition] 06-02-2023 Episodic Headache; including migraine (5 sources) Migraine; Translations: [Migraine, unspecified, not intractable, without status migrainosus] 10-08-2022 Chronic Malaise and fatigue (5 sources) Fatigue; Translations: [Other fatigue] 12-19-2019 Episodic Mycoses (1 source) Candidiasis of vagina; Translations: [Yeast vaginitis] 10-09-2024 Episodic Nonmalignant breast conditions (2 sources) Extremely dense breast composition; Translations: [Extremely dense tissue of both breasts on mammography] 10-05-2023 Episodic Nonspecific chest pain (1 source) Chest pain, unspecified; Translations: [Chest pain, unspecified] Onset: 01-20-2025 Episodic Other circulatory disease (20 sources) Low blood pressure; Translations: [Hypotension, unspecified] Onset: 03-07-2017 03-07-2017 Episodic Other female genital disorders (1 source) Abnormal uterine bleeding; Translations: [Abnormal uterine and vaginal bleeding, unspecified] 08-04-2024 Chronic Other female genital disorders (1 source) Abnormal uterine and vaginal bleeding, unspecified; Translations: [Abnormal uterine and vaginal bleeding, unspecified] Onset: 08-26-2024 Chronic Other female genital disorders (9 sources) Vaginal discharge; Translations: [Other specified noninflammatory disorders of vagina] Episodic Other female genital disorders (5 sources) Pruritus of vagina; Translations: [Other specified noninflammatory disorders of vagina] Episodic Other gastrointestinal disorders (10 sources) Irritable bowel syndrome; Translations: [Irritable bowel syndrome without diarrhea] 06-27-2021 Chronic Other gastrointestinal disorders (3 sources) Chronic idiopathic constipation; Translations: [Chronic idiopathic constipation] 01-28-2024 Chronic Other gastrointestinal disorders (1 source) Chronic idiopathic constipation; Translations: [Chronic idiopathic constipation] Onset: 08-09-2023 Chronic Other screening for suspected conditions (not mental disorders or infectious disease) (20 sources) Patient encounter status; Translations: [Encounter for screening mammogram for malignant neoplasm of breast] Onset: 01-21-2024 10-05-2023 Episodic Other upper respiratory infections (5 sources) Sinusitis; Translations: [Chronic sinusitis, unspecified] 10-30-2020 Chronic Other upper respiratory infections (4 sources) Streptococcal sore throat; Translations: [Streptococcal pharyngitis] Episodic Residual codes; unclassified (2 sources) Pain; Translations: [Pain, unspecified] Episodic Residual codes; unclassified (1 source) Family history of breast cancer 2 gene mutation; Translations: [Family history of carrier of genetic disease] 01-07-2024 Episodic Residual codes; unclassified (1 source) Family history of breast cancer; Translations: [Family history of malignant neoplasm of breast] 01-07-2024 Episodic Screening and history of mental health and substance abuse codes (2 sources) H/O: anxiety state; Translations: [Personal history of other mental and behavioral disorders] 11-05-2023 Episodic Spondylosis; intervertebral disc disorders; other back problems (1 source) Cervicalgia; Translations: [Cervicalgia] Onset: 01-12-2025 Episodic Urinary tract infections (6 sources) Urinary tract infectious disease; Translations: [Urinary tract infection, site not specified] 06-07-2023 Episodic Viral infection (1 source) Viral disease; Translations: [Viral infection, unspecified] 09-26-2024 Episodic Past or Other Problems Problem Classification Problem Date Documented Da te Episodic/Chronic Abdominal pain (20 sources) Right lower quadrant pain; Translations: [Right lower quadrant pain] Onset: 03-07-2013 Resolved: 02-05-2015 04-11-2021 Episodic Administrative/social admission (20 sources) Support system deficit; Translations: [Other specified problems related to psychosocial circumstances] Onset: 06-02-2014 Resolved: 02-05-2015 11-14-2021 Episodic Calculus of urinary tract (20 sources) Ureteric stone; Translations: [Calculus of ureter] Onset: 10-01-2008 Resolved: 02-05-2015 11-10-2011 Episodic Immunizations and screening for infectious disease (20 sources) Positive measurement finding; Translations: [Other specified abnormal immunological findings in serum] Onset: 12-30-2014 Resolved: 02-05-2015 02-05-2015 Episodic Inflammatory diseases of female pelvic organs (20 sources) Acute vaginitis; Translations: [Acute vaginitis] Onset: 11-25-2011 Resolved: 02-05-2015 Episodic Other complications of (20 sources) High risk ; Translations: [Supervision of high risk , unspecified, unspecified trimester] Onset: 09-24-2014 Resolved: 02-05-2015 02-05-2015 Episodic Other female genital disorders (20 sources) Vaginal irritation; Translations: [Other specified noninflammatory disorders of vagina] Onset: 11-07-2011 Resolved: 11-25-2011 Episodic Other female genital disorders (20 sources) Vulval irritation; Translations: [Other specified noninflammatory disorders of vulva and perineum] Onset: 11-25-2011 Resolved: 01-10-2013 01-10-2013 Episodic Other female genital disorders (20 sources) Leukorrhea; Translations: [Other specified noninflammatory disorders of vagina] Onset: 03-18-2012 Resolved: 01-10-2013 01-10-2013 Episodic Other female genital disorders (20 sources) Female genital organ symptoms; Translations: [Unspecified condition associated with female genital organs and menstrual cycle] Onset: 03-18-2012 Resolved: 03-26-2012 03-26-2012 Episodic Other gastrointestinal disorders (20 sources) Constipation; Translations: [Constipation, unspecified] Onset: 06-02-2014 08-09-2023 Episodic Other gastrointestinal disorders (1 source) Constipation, unspecified; Translations: [Constipation, unspecified constipation type] Onset: 08-09-2023 Episodic Other nutritional; endocrine; and metabolic disorders (20 sources) H/O: endocrine disorder; Translations: [Personal history of other endocrine, nutritional and metabolic disease] Onset: 06-02-2014 Resolved: 02-05-2015 01-15-2024 Episodic Other and delivery including normal (20 sources) ; Translations: [Encounter for supervision of normal , unspecified, unspecified trimester] Onset: 06-02-2014 Resolved: 10-23-2014 11-14-2021 Episodic Short gestation; low weight; and growth retardation (20 sources) growth restriction; Translations: [IUGR (intrauterine growth restriction)] Onset: 09-24-2014 Resolved: 02-05-2015 11-14-2021 Episodic Results Test Name Value Interpretation Reference Range Facil ity BACTERIAL VAGINOSIS NAATon 0 02-28-2025 Interpretation and review of laboratory results Normal [facility] Lactobacillus crispatus+gasseri+jense mat + Gardnerella vaginalis + Atopobium vaginae rRNA LUIS+probe Ql (Vag fld) Not detected Not detected [facility] C. trachomatis+N. gonorrhoea e DNA LUIS+probe Ql (Unsp spec)on 02-28-2025 C. trachomatis rRNA LUIS+probe Ql (Unsp spec) Not detected Not detected [facility] Interpretation and review of laboratory results Normal [facility] N. gonorrhoeae rRNA LUIS+probe Ql (Unsp spec) Not detected Not detected [facility] This FDA-approved assay has been modified to accept rectal swabs self-collected in a healthcare setting. For self-collected rectal swabs, the test was developed and its performance characteristics determined by the [facility]'s [facility] [place] ([facility]). It has not been cleared or approved by the FDA. [facility] is regulated under CLIA as qualified to perform high-complexity testing. This test is used for clinical purposes. It should not be regarded as investigational or for research. [facility] STACI/TRICHOMONAS NAATon 0 02-28-2025 C. glabrata RNA LUIS+probe Ql (Vag fld) Not detected Not detected [facility] Staci sp DNA LUIS+probe Ql (Vag fld) Not detected Not detected [facility] Comment on above: The Staci species group target includes C. albicans, C. tropicalis, C. parapsilosis, and C. dubliniensis. Interpretation and review of laboratory results Normal [facility] T. vaginalis DNA LUIS+probe Ql (Unsp spec) Not detected Not detected [facility] BACTERIAL VAGINOSIS NAATon 0 02-27-2025 Lactobacillus crispatus+gasseri+jense mat + Gardnerella vaginalis + Atopobium vaginae rRNA LUIS+probe Ql (Vag fld) Not detected Normal Not detected [facility] Comment on above: Order Comment: Speci men Type: SWABOrdering Facility: [facility] Address: [address] [place] [address] Performed By: #### ROMI RASMUSSENTV ####[facility]CL[facility] [id number] [place] [address] [place] C. trachomatis+N. gonorrhoea e DNA LUIS+probe Ql (Unsp spec)on 02-27-2025 C. trachomatis rRNA LUIS+probe Ql (Unsp spec) Not detected Normal Not detected [facility] Comment on above: Order Comment: Speci men Type: SWABOrdering Facility: [facility] Address: [address] [place] [address] Performed By: #### 3 [id number] ####[facility] [id number] [place] [address] [place] N. gonorrhoeae rRNA LUIS+probe Ql (Unsp spec) Not detected Normal Not detected [facility] Comment on above: Order Comment: Speci men Type: SWABOrdering Facility: [facility] Address: [address] [place] [address] Performed By: #### 3 [id number] ####[facility] [id number] [place] [address] [place] STACI/TRICHOMONAS NAATon 0 02-27-2025 C. glabrata RNA LUIS+probe Ql (Vag fld) Not detected Normal Not detected [facility] Comment on above: Order Comment: Speci men Type: SWABOrdering Facility: [facility] Address: [address] [place] [address] Performed By: #### B VAMP, CVTV ####[facility] [id number] [place] [address] [place] Staci sp DNA LUIS+probe Ql (Vag fld) Not detected Normal Not detected [facility] Comment on above: Order Comment: Speci men Type: SWABOrdering Facility: [facility] Address: [address] [place] [address] Result Comment: The Staci species group target includes C. albicans, C. tropicalis, C. parapsilosis, and C. dubliniensis. Performed By: #### B VAMP, CVTV ####[facility] LABIA [id number] [place] [address] [place] T. vaginalis DNA LUIS+probe Ql (Unsp spec) Not detected Normal Not detected [facility] Comment on above: Order Comment: Speci men Type: SWABOrdering Facility: [facility] Address: [address] [place] [address] Performed By: #### B VAMP, CVTV ####[facility]NOEM[facility] [id number] [address] [place] CNOVon 02-27-2025 CNOV Office Visit (OBGYWM ) JAYCEE REED ([id number]) 1980 F Date Time Provider Department 02/27/25 2:00 PM NEREYDA RUFFIN OBGYWM During your visit today, we recorded the following information about you: Blood pressure Weight Last Period 112 55.8 kg 02/16/25 Nereyda Ruffin MD 02/28/2025 11:58 AM Signed Ecotherapist offered: Patient declines. Jaycee Reed is a 44 year old female who presents for vaginal discharge Does have a new partner. Desires STD screening Skin tag removed by derm. Few more showed up after. No itching. No pain Vaginal discharge: moderate amount and watery. Itching: Some Dyspareunia: No Fever/chills: No Abdominal pain: No Bladder: Negative for dysuria or frequency Bowel: No blood in stool, pain with BM, tarry stool, persistent diarrhea or constipation Any new sexual partners or concern for STD exposure: Yes: Any history of STDs: None Does your partner have any new complaints: No Are you currently taking any medications to treat vaginitis: No Do you use feminine sprays, douches or deodorants: No Menstrual cycle: normal Contraception: tubal sterilization Last pap: 2022, normal Past medical, surgical, social history, medications and allergies reviewed and updated. OBJECTIVE: SENSITIVE EXAM: The sensitive examination was discussed with the Patient or Patient's Authorized [place]arden. As applicable, any other physician, advance practice provider, medical student, or other health professional student that will be observing or involved in the sensitive examination for educational or training purposes was discussed with the Patient or Authorized [place]. The Patient or Authorized [place] has agreed to proceed with the sensitive examination. (Sensitive examination includes inspection and/or palpation of the breasts, pelvis, prostate and anorectal regions). BP 112/62 Wt 123 lb (55.8kg) LMP 02/16/2025 GENERAL: Well developed, well nourished in no apparent distress ABDOMEN: soft, non-tender, and no masses PELVIC: external genitalia normal, normal Bartholin's glands, urethra, [place]'s glands, no vulvar lesions, no cervical lesions, good vaginal support, physiologic discharge present, normal appearing perineal body and perianal region. Small raised skin colored bumps consistent with molluscum BIMANUAL: deferred. RECTOVAGINAL: deferred. ASSESSMENT/PLAN: Vaginitis Molluscum STD screening STD screening: Accepted STD check for Gonorrhea and Chlamydia. MD Jael Mccollum Reanna, MA 02/27/2025 1:50 PM Signed Minimizing irritation of the vulva (area around the vagina) Wear white cotton underwear. Avoid synthetic fabrics and tight clothing. Sleep wearing shorts or pajama bottoms without underwear. Shower as soon as possible after exercise. Avoid clothing detergents and soaps with perfumes or dyes. Use warm (not hot) water to wash the vulva and if you use soap use a product designed for sensitive skin (like Dove or Cetaphil). Do not douche or use creams/powders in the vulvar area unless instructed by your physician. If you must douche, use only plain warm water. Make sure the vulva is dry before dressing by patting dry with a towel. Avoid vigorous rubbing with the towel. You may want to use the blow dryer (on the cool setting only!) on the vulva. The most important way to let your body heal is by avoiding scratching. Many patients find it difficult to avoid scratching at night when they are most aware of the itchiness. You can try taking Benadryl just before bedtime. Some women find it helpful to wear cotton gloves to bed to avoid scratching at night. Referring Provider: SELF [200] Allergies As of Date: 02/27/2025 Noted Allergy Reaction CODEINE 10/01/2008 2 - Rash LATEX 02/13/2023 2 - Rash NICKEL 11/07/2011 2 - Rash Date Reviewed: 02/27/2025 Reviewed by: Deb Elder MA - Fully Assessed Reason for Visit: Vaginal Problem [117] Primary Visit Diagnosis:Vaginal irritation [N89.8] Other Visit Diagnoses:Vaginal discharge [N89.8] Vaginal itching [N89.8] Order(s):BACTERIAL VAGINOSIS NAAT [SQBVAMP] Order #: [id number]. #:[id number] STACI/TRICHOMONAS NAAT [SQCVTV] Order #: [id number]. #:[id number] GONORRHEA/CHLAMYDIA NAAT [SQGCCT] Order #: [id number]. #:[id number] Prescriptions as of 02/28/2025 - Lactobacillus acidophilus (FLORAJEN ACIDOPHILUS) 20 billion cell capsule Take 1 capsule by mouth once daily. - amoxicillin-clavulana te potassium (AUGMENTIN) 875-125 mg per tablet Take 1 tablet by mouth two times a day. - MEDICATION, NON-DATABASE 2 capsules once daily. BIO CLEANSE SUPPLEMENT WITH MAGNESIUM Problem List As Of Date 02/27/2025 Noted Resolved Calculus of ureter [N20.1] 10/01/2008 11/10/2011 Vaginal irritation [N89.8] 11/07/2011 11/25/2011 Chronic vulvovaginit (more content not included)... Normal [facility] JAYCEE REED ([id number]) 1980 F Date Time Provider Department 02/02/25 AURELIA BORGES During your visit today, we recorded the following information about you: Carmen Flores, SARAH 02/02/2025 3:08 PM Signed Patient calling with complaints of a yeast infection. Patient states she is going to do an OTC 7 day Monistat treatment for her symptoms but is asking if she can get another prescription for the Florajen that was previously prescribed for her. Please file if appropriate. SARAH Germain Emily, APRN.STEPHEN 02/02/2025 3:21 PM Signed Schedule appointment if symptoms persist Aurelia Borges APRN.Rober Leung RN 02/02/2025 3:30 PM Signed Pt notified and voiced understanding. Rober Urrutia RN Allergies As of Date: 02/02/2025 Noted Allergy Reaction CODEINE 10/01/2008 2 - Rash LATEX 02/13/2023 2 - Rash NICKEL 11/07/2011 2 - Rash Date Reviewed: 01/15/2025 Reviewed by: Ariel Briseno, RT(R) - Fully Assessed Reason for Visit: Medication Question [3128] Order(s):Lactobacillu s acidophilus (FLORAJEN ACIDOPHILUS) 20 billion cell capsuleTake 1 capsule by mouth once daily.Disp: 30 capsuleRfl: 5 Prescriptions as of 02/02/2025 - Lactobacillus acidophilus (FLORAJEN ACIDOPHILUS) 20 billion cell capsule Take 1 capsule by mouth once daily. - amoxicillin-clavulana te potassium (AUGMENTIN) 875-125 mg per tablet Take 1 tablet by mouth two times a day. - MEDICATION, NON-DATABASE 2 capsules once daily. BIO CLEANSE SUPPLEMENT WITH MAGNESIUM Problem List As Of Date 02/02/2025 Noted Resolved Calculus of ureter [N20.1] 10/01/2008 11/10/2011 Vaginal irritation [N89.8] 11/07/2011 11/25/2011 Chronic vulvovaginitis [N76.1] 11/25/2011 11/25/2011 Vulvar irritation [N90.89] 11/25/2011 01/10/2013 BV (bacterial vaginosis) [N76.0, B96.89] 12/29/2011 03/26/2012 Leukorrhea, not specified as infective [N89.8] 03/18/2012 01/10/2013 Unspecified inflammatory disease of female pelv*03/18/2012 03/26/2012 Vaginitis and vulvovaginitis, unspecified [N76.*03/18/2012 01/10/2013 Unspecified symptom associated with female zac*03/18/2012 03/26/2012 Chronic vaginitis [N76.1] 01/10/2013 02/05/2015 Pelvic pain in female [R10.2] 03/07/2013 02/05/2015 Support system deficit [Z65.8] 06/02/2014 02/05/2015 with adoption planned [Z34.90] 06/02/2014 10/23/2014 History of kidney stones [Z87.442] 06/02/2014 02/05/2015 History of hypoglycemia [Z86.39] 06/02/2014 02/05/2015 Constipation [K59.00] 06/02/2014 SUPRV HIGH-RISK PREG NOS [V23.9] [O09.90] 09/24/2014 02/05/2015 IUGR (intrauterine growth restriction) [UDL3029]09/24/2014 02/05/2015 CMV (cytomegalovirus) antibody positive [R76.8] 12/30/2014 02/05/2015 Pre-op testing [Z01.818] 01/15/2024 Prescriptions ordered this encounter Disp Refills Start End FLORAJEN ACIDOPHILUS 20 BILLION CELL* 30 c* 5 02/02/2025 Route: ORAL Sig: Take 1 capsule by mouth once daily. Medications Discontinued During This Encounter Prescriptions - Lactobacillus acidophilus (FLORAJEN ACIDOPHILUS) 20 billion cell capsule (Discontinued) Take 1 capsule by mouth once daily. - fluticasone (FLONASE) 50 mcg/actuation nasal spray (Discontinued) Use 2 Sprays in each nostril once daily. Encounter Status:Closed by ROBER URRUTIA on 02/02/25 Normal [facility] 01-15-20 [facility] DI[facility]IC [facility] * * *Final Report* * * DATE OF EXAM: Jan 15 2025 10:57AM AAW 0621 - [facility] DIAGNOSTIC LT / PROCEDURE REASON: Abnormal mammogram * * * * Physician Interpretation * * * * [facility] [address] [address] [place] [address] #[phone] - [facility] STEREO BX BREAST LT #[id number] - [facility] DIAGNOSTIC LT HISTORY: 44 year old patient presents for a stereotactic biopsy of left breast calcifications. COMPARISON STUDIES: Correlation is made to exams dated: 07/01/2021 (mammogram, 10/05/2023 (mammogram), 10/22/2024 (mammogram), 11/26/2024 (ultrasound) and 11/26/2024 (mammogram). TECHNIQUE: This study was acquired using a combination of magnification views as well as spot compression tomosynthesis views of the left breast. FINDINGS: Additional left MLO magnification views were obtained of the calcifications in the upper outer quadrant, posterior depth to aid in biopsy planning. A stereotactic biopsy was attempted on the calcifications in the left breast upper outer quadrant, posterior depth. Images were obtained in the LM, MLO and CC, however the calcifications were unable to be brought into the opening of the compression paddle and therefore were unable to be safely biopsied given far posterior lateral location. Upon further review of prior mammograms, these calcifications appear minimally increased to not significantly changed from prior mammogram 10/05/2023 with additional years of stability difficult to identify given far posterior lateral location. Given no significant change since 10/05/2023 these calcifications are favored to be probably benign with a 6 month follow-up left breast mammogram recommended to demonstrate stability. These findings were discussed with the patient who is in agreement with the plan. IMPRESSION: STEREOTACTIC GUIDED BIOPSY/DIAGNOSTIC LEFT BREAST MAMMOGRAM A stereotactic biopsy of the calcifications in the left breast upper outer quadrant, posterior depth was unable to be performed safely given far posterior lateral location. Given no significant change since 10/05/2023 these calcifications are favored to be probably benign with a 6 month follow-up left breast mammogram recommended to demonstrate stability. These findings were discussed with the patient who is in agreement with the plan. Interpreting Radiologist: Micaela Keith M.D. Resident/Fellow: Deborah Brewer M.D. Electronically signed on: 01/15/2025 Tape Cutter: UMU Transcrialis Date/Time: Jan 15 2025 10:35A Dictated by : DEBORAH BREWER MD This examination was interpreted and the report reviewed and electronically signed by: MICAELA KEITH MD on Jan 15 2025 5:20PM EST [id number] Normal [facility] STEREO BX BREAST LTon [facility] STEREO BX BREAST LT * * *Final Repor t* * * DATE OF EXAM: Jan 15 2025 11:40AM AAW 0630 - [facility] STEREO BX BREAST LT / PROCEDURE REASON: Abnormal finding on breast imaging * * * * Physician Interpretation * * * * [facility] [address] [place] [address] #[id number] - [facility] STEREO BX BREAST LT #[id number] - [facility] DIAGNOSTIC LT HISTORY: 44 year old patient presents for a stereotactic biopsy of left breast calcifications. COMPARISON STUDIES: Correlation is made to exams dated: 07/01/2021 (mammogram, 10/05/2023 (mammogram), 10/22/2024 (mammogram), 11/26/2024 (ultrasound) and 11/26/2024 (mammogram). TECHNIQUE: This study was acquired using a combination of magnification views as well as spot compression tomosynthesis views of the left breast. FINDINGS: Additional left MLO magnification views were obtained of the calcifications in the upper outer quadrant, posterior depth to aid in biopsy planning. A stereotactic biopsy was attempted on the calcifications in the left breast upper outer quadrant, posterior depth. Images were obtained in the LM, MLO and CC, however the calcifications were unable to be brought into the opening of the compression paddle and therefore were unable to be safely biopsied given far posterior lateral location. Upon further review of prior mammograms, these calcifications appear minimally increased to not significantly changed from prior mammogram 10/05/2023 with additional years of stability difficult to identify given far posterior lateral location. Given no significant change since 10/05/2023 these calcifications are favored to be probably benign with a 6 month follow-up left breast mammogram recommended to demonstrate stability. These findings were discussed with the patient who is in agreement with the plan. IMPRESSION: STEREOTACTIC GUIDED BIOPSY/DIAGNOSTIC LEFT BREAST MAMMOGRAM A stereotactic biopsy of the calcifications in the left breast upper outer quadrant, posterior depth was unable to be performed safely given far posterior lateral location. Given no significant change since 10/05/2023 these calcifications are favored to be probably benign with a 6 month follow-up left breast mammogram recommended to demonstrate stability. These findings were discussed with the patient who is in agreement with the plan. Interpreting Radiologist: Micaela Keith M.D. Resident/Fellow: Deborah Brewer M.D. Electronically signed on: 01/15/2025 Tape Cutter: [email or web address] Transcribe Date/Time: Jan 15 2025 11:06A Dictated by : DEBORAH BREWER MD This examination was interpreted and the report reviewed and electronically signed by: MICAELA KEITH MD on Jan 15 2025 5:20PM EST [id number] N Normal [facility] MG Breast - left Diagnostic for implanton 01-15-2025 IMPRESSION: STEREOTACTIC GUIDED BIOPSY/DIAGNOSTIC LEFT BREAST MAMMOGRAM A stereotactic biopsy of the calcifications in the left breast upper outer quadrant, posterior depth was unable to be performed safely given far posterior lateral location. Given no significant change since 10/05/2023 these calcifications are favored to be probably benign with a 6 month follow-up left breast mammogram recommended to demonstrate stability. These findings were discussed with the patient who is in agreement with the plan. Interpreting Radiologist: Micaela Keith M.D. Resident/Fellow: Deborah Brewer M.D. Electronically signed on: 01/15/2025 Tape Cutter: UMU Transcribe Date/Time: Jan 15 2025 10:35A Dictated by : DEBORAH BREWER MD This examination was interpreted and the report reviewed and electronically signed by: MICAELA KEITH MD on Jan 15 2025 5:20PM EST [facility] * * *Final Report* * * DATE OF EXAM: Jan 15 2025 10:57AM [facility] 0621 - [facility] DIAGNOSTIC LT / PROCEDURE REASON: Abnormal mammogram * * * * Physician Interpretation * * * * [facility] [address] [place] [address] #[id number] - [facility]EREO BX BREAST LT #[id number] - [facility] DIAGNOSTIC LT HISTORY: 44 year old patient presents for a stereotactic biopsy of left breast calcifications. COMPARISON STUDIES: Correlation is made to exams dated: 07/01/2021 (mammogram, 10/05/2023 (mammogram), 10/22/2024 (mammogram), 11/26/2024 (ultrasound) and 11/26/2024 (mammogram). TECHNIQUE: This study was acquired using a combination of magnification views as well as spot compression tomosynthesis views of the left breast. FINDINGS: Additional left MLO magnification views were obtained of the calcifications in the upper outer quadrant, posterior depth to aid in biopsy planning. A stereotactic biopsy was attempted on the calcifications in the left breast upper outer quadrant, posterior depth. Images were obtained in the LM, MLO and CC, however the calcifications were unable to be brought into the opening of the compression paddle and therefore were unable to be safely biopsied given far posterior lateral location. Upon further review of prior mammograms, these calcifications appear minimally increased to not significantly changed from prior mammogram 10/05/2023 with additional years of stability difficult to identify given far posterior lateral location. Given no significant change since 10/05/2023 these calcifications are favored to be probably benign with a 6 month follow-up left breast mammogram recommended to demonstrate stability. These findings were discussed with the patient who is in agreement with the plan. [facility] Provider, [facility] - 01/15/2025 * * *Final Report* * * DATE OF EXAM: Jan 15 2025 10:57AM [facility] 0621 - [facility] DIAGNOSTIC LT / PROCEDURE REASON: Abnormal mammogram * * * * Physician Interpretation * * * * [facility] [address] [place] [id number] #[id number] - [facility] BX BREAST LT #[id number] - [facility] DIAGNOSTIC LT HISTORY: 44 year old patient presents for a stereotactic biopsy of left breast calcifications. COMPARISON STUDIES: Correlation is made to exams dated: 07/01/2021 (mammogram, 10/05/2023 (mammogram), 10/22/2024 (mammogram), 11/26/2024 (ultrasound) and 11/26/2024 (mammogram). TECHNIQUE: This study was acquired using a combination of magnification views as well as spot compression tomosynthesis views of the left breast. FINDINGS: Additional left MLO magnification views were obtained of the calcifications in the upper outer quadrant, posterior depth to aid in biopsy planning. A stereotactic biopsy was attempted on the calcifications in the left breast upper outer quadrant, posterior depth. Images were obtained in the LM, MLO and CC, however the calcifications were unable to be brought into the opening of the compression paddle and therefore were unable to be safely biopsied given far posterior lateral location. Upon further review of prior mammograms, these calcifications appear minimally increased to not significantly changed from prior mammogram 10/05/2023 with additional years of stability difficult to identify given far posterior lateral location. Given no significant change since 10/05/2023 these calcifications are favored to be probably benign with a 6 month follow-up left breast mammogram recommended to demonstrate stability. These findings were discussed with the patient who is in agreement with the plan. IMPRESSION IMPRESSION: STEREOTACTIC GUIDED BIOPSY/DIAGNOSTIC LEFT BREAST MAMMOGRAM A stereotactic biopsy of the calcifications in the left breast upper outer quadrant, posterior depth was unable to be performed safely given far posterior lateral location. Given no significant change since 10/05/2023 these calcifications are favored to be probably benign with a 6 month follow-up left breast mammogram recommended to demonstrate stability. These findings were discussed with the patient who is in agreement with the plan. Interpreting Radiologist: Micaela Keith M.D. Resident/Fellow: Deborah Brewer M.D. Electronically signed on: 01/15/2025 Tape Cutter: UMU Transcrialis Date/Time: Jan 15 2025 10:35A Dictated by : DEBORAH BREWER MD This examination was interpreted and the report reviewed and electronically signed by: MICAELA KEITH MD on Jan 15 2025 5:20PM [facility] Radiology Study observation (narrative) [facility] stereo Guidance for biops y of Breast - lefton 01-15-2025 IMPRESSION: STEREOTACTIC GUIDED BIOPSY/DIAGNOSTIC LEFT BREAST MAMMOGRAM A stereotactic biopsy of the calcifications in the left breast upper outer quadrant, posterior depth was unable to be performed safely given far posterior lateral location. Given no significant change since 10/05/2023 these calcifications are favored to be probably benign with a 6 month follow-up left breast mammogram recommended to demonstrate stability. These findings were discussed with the patient who is in agreement with the plan. Interpreting Radiologist: Micaela Keith M.D. Resident/Fellow: Deborah Brewer M.D. Electronically signed on: 01/15/2025 Tape Cutter: UMU Transcrialis Date/Time: Jan 15 2025 11:06A Dictated by : DEBORAH BREWER MD This examination was interpreted and the report reviewed and electronically signed by: MICAELA KEITH MD on Jan 15 2025 5:20PM EST [facility] * * *Final Report* * * DATE OF EXAM: Jan 15 2025 11:40AM AAW 0630 - [facility] BX BREAST LT / PROCEDURE REASON: Abnormal finding on breast imaging * * * * Physician Interpretation * * * * [facility] [address] [facility] [place] [id number] #[id number] - [facility] STEREO BX BREAST LT #[id number] - [facility] DIAGNOSTIC LT HISTORY: 44 year old patient presents for a stereotactic biopsy of left breast calcifications. COMPARISON STUDIES: Correlation is made to exams dated: 07/01/2021 (mammogram, 10/05/2023 (mammogram), 10/22/2024 (mammogram), 11/26/2024 (ultrasound) and 11/26/2024 (mammogram). TECHNIQUE: This study was acquired using a combination of magnification views as well as spot compression tomosynthesis views of the left breast. FINDINGS: Additional left MLO magnification views were obtained of the calcifications in the upper outer quadrant, posterior depth to aid in biopsy planning. A stereotactic biopsy was attempted on the calcifications in the left breast upper outer quadrant, posterior depth. Images were obtained in the LM, MLO and CC, however the calcifications were unable to be brought into the opening of the compression paddle and therefore were unable to be safely biopsied given far posterior lateral location. Upon further review of prior mammograms, these calcifications appear minimally increased to not significantly changed from prior mammogram 10/05/2023 with additional years of stability difficult to identify given far posterior lateral location. Given no significant change since 10/05/2023 these calcifications are favored to be probably benign with a 6 month follow-up left breast mammogram recommended to demonstrate stability. These findings were discussed with the patient who is in agreement with the plan. [facility] Provider, [facility] - 01/15/2025 * * *Final Report* * * DATE OF EXAM: Jan 15 2025 11:40AM AAW 0630 - [facility] BX BREAST LT / PROCEDURE REASON: Abnormal finding on breast imaging * * * * Physician Interpretation * * * * [facility] [address] [place] [address] #[id number] - [facility] BREAST LT #[id number] - [facility] DIAGNOSTIC LT HISTORY: 44 year old patient presents for a stereotactic biopsy of left breast calcifications. COMPARISON STUDIES: Correlation is made to exams dated: 07/01/2021 (mammogram, 10/05/2023 (mammogram), 10/22/2024 (mammogram), 11/26/2024 (ultrasound) and 11/26/2024 (mammogram). TECHNIQUE: This study was acquired using a combination of magnification views as well as spot compression tomosynthesis views of the left breast. FINDINGS: Additional left MLO magnification views were obtained of the calcifications in the upper outer quadrant, posterior depth to aid in biopsy planning. A stereotactic biopsy was attempted on the calcifications in the left breast upper outer quadrant, posterior depth. Images were obtained in the LM, MLO and CC, however the calcifications were unable to be brought into the opening of the compression paddle and therefore were unable to be safely biopsied given far posterior lateral location. Upon further review of prior mammograms, these calcifications appear minimally increased to not significantly changed from prior mammogram 10/05/2023 with additional years of stability difficult to identify given far posterior lateral location. Given no significant change since 10/05/2023 these calcifications are favored to be probably benign with a 6 month follow-up left breast mammogram recommended to demonstrate stability. These findings were discussed with the patient who is in agreement with the plan. IMPRESSION IMPRESSION: STEREOTACTIC GUIDED BIOPSY/DIAGNOSTIC LEFT BREAST MAMMOGRAM A stereotactic biopsy of the calcifications in the left breast upper outer quadrant, posterior depth was unable to be performed safely given far posterior lateral location. Given no significant change since 10/05/2023 these calcifications are favored to be probably benign with a 6 month follow-up left breast mammogram recommended to demonstrate stability. These findings were discussed with the patient who is in agreement with the plan. Interpreting Radiologist: Micaela Keith M.D. Resident/Fellow: Deborah Brewer M.D. Electronically signed on: 01/15/2025 Tape Cutter: UMU Boschribe Date/Time: Jan 15 2025 11:06A Dictated by : DEBORAH BREWER MD This examination was interpreted and the report reviewed and electronically signed by: MICAELA KEITH MD on Jan 15 2025 5:20PM EST [facility] Radiology Study observation (narrative) [facility] No Panel InformationOrdered By: Ccf Provider on 01-15-2025 [facility] 12 Lead EKGon 01-12-2025 12 Lead EKG [facility] Cardiovascular Services [address] [place] [address] 12 Lead EKG 01/12/25 0108 MR#: [id number] Acct: [id number] Name: JAYCEE REED Rep #: [id number] : 1980 44 From: Ze Fleming MD Attending Dr: Status: DEP ER Ordering Dr: Will Castanon DO Date: 01/12/25 Location: ED Sex: F C Admitted: Test Reason : CP Blood Pressure : */* mmHG Vent. Rate : 92 BPM Atrial Rate : 92 BPM P-R Int : 136 ms QRS Dur : 72 ms QT Int : 370 ms P-R-T Axes : 74 12 61 degrees QTcB Int : 457 ms Normal sinus rhythm Normal ECG Confirmed by Ze Fleming ([id number]), editorial manager MANAS NAVARRETE ([id number]) on 01/12/2025 10:35:43 AM Referred By: DOMENICO Confirmed By: Ze Fleming 01/12/25 1035 Date Ze Fleming MD CC: Dr. Leia Simons MD; Dr. Will Castanon DO Signed Normal [facility] Basic Metabolic Profile (BMP )on 01-12-2025 BUN/CRE 10.7 RATIO Normal 10-20 [facility] Comment on above: Performed By: #### M 100.677, M100.678 #### [facility] [address] [place], [address] CA,Total 8.8 mg/dL Normal 8.5-10.1 [facility] Comment on above: Performed By: #### M 100.677, M100.678 #### [facility] [address] [place], [address] Chloride [Moles/Vol] 106 mmol/L Normal 98-107 [facility] Comment on above: Performed By: #### M 100.677, M1.8 #### [facility] [address] [place], [address] CO2 [Moles/Vol] 22.0 mmol/L Normal 21.0-32.0 [facility] Comment on above: Performed By: #### M 100.677, M1.678 #### [facility] [address] [place], [address] Creatinine [Mass/Vol] 0.65 mg/dL Normal 0.55-1.02 [facility] Comment on above: Result Comment: The validity of the calculated GFR GFRAA in patients over 70 years has not been determined. Clinical correlation is essential. Performed By: #### M 100.677, .8 #### [facility] [address] [place], [address] ECRCL 96.37 ml/min Normal [facility] Comment on above: Performed By: #### M 100.677, .8 #### [facility] [address] [place], [address] EST GFR - AA 127 mL/min Normal >60 [facility] Comment on above: Result Comment: Afri can Palauan GFR Calc Performed By: #### M 100.677, .678 #### [facility] [address] [place], [address] GAP 9 Normal 5-15 [facility] Comment on above: Performed By: #### M 100.677, .678 #### [facility] [address] [place], [address] GFR/1.73 sq M.predicted among non-blacks MDRD (S/P/Bld) [Vol rate/Area] 105 mL/min/{1.73_m2} Normal >60 [facility] Comment on above: Result Comment: Non- GFR Calc Performed By: #### M 100.677, .8 #### [facility] [address] [place], [address] Glucose [Mass/Vol] 108 mg/dL High 74-106 [facility] Comment on above: Result Comment: Fast ing Glucose result from 100 to 125 mg/dL suggests IMPAIRED HOMEOSTASIS per A.D.A. criteria. Performed By: #### M 100.677, . #### [facility] [address] [place], [address] Potassium [Moles/Vol] 3.4 mmol/L Low 3.5-5.1 [facility] Comment on above: Performed By: #### M 100.7, #### [facility] [address] [place], [address] Sodium [Moles/Vol] 137 mmol/L Normal 136-145 [facility] Comment on above: Performed By: #### M 100.677, .8 #### [facility] [address] [place], [address] Urea nitrogen [Mass/Vol] 7 mg/dL Normal 7-18 [facility] Comment on above: Performed By: #### M 100.677, 8 #### [facility] [address] [place], [address] CBC W/Diff, Automatedon -2 Absolute Lymph 0.70 X10 3/uL Low 0.83-4.51 [facility] Comment on above: Performed By: #### M 100.677, .8 #### [facility] [address] [place], [address] Absolute Neut 7.6 X10 3/uL Normal 2.0-7.7 [facility] Comment on above: Performed By: #### M 100.677, M100.678 #### [facility] [address] [place], [address] Basophils/100 WBC (Bld) 0.2 % Normal 0-1 [facility] Comment on above: Performed By: #### M 100.677, .8 #### [facility] [address] [place], [address] Eosinophils/100 WBC (Bld) 0.2 % Normal 0-5 [facility] Comment on above: Performed By: #### M 100.677, .8 #### [facility] [address] [place], [address] Erythrocyte distribution width (RBC) [Ratio] 12.6 % Normal 11.6-14.6 [facility] Comment on above: Performed By: #### M 100.677, .8 #### [facility] [address] [place], [address] Hematocrit (Bld) [Volume fraction] 36.7 % Low 37-47 [facility] Comment on above: Performed By: #### M 100.677, .8 #### [facility] [address] [place], [address] Hemoglobin (Bld) [Mass/Vol] 13.1 g/dL Normal 12.0-15.0 [facility] Comment on above: Performed By: #### M 100.677, M100.678 #### [facility] [address] [place], [address] IG% 0.500 Normal 0.0-0.9 [facility] Comment on above: Result Comment: IG% - Immature Granulocytes (promyelocytes, myelocytes and metamyelocytes) > 1% indicates that a LEFT SHIFT is Present. Performed By: #### M 100.677, M100.678 #### [facility] [address] [place], [address] Lymphocytes/100 WBC (Bld) 7.7 % Low 19-41 [facility] Comment on above: Performed By: #### M 100.677, M100.678 #### [facility] [address] [place], [address] MCH (RBC) [Entitic mass] 33.2 pg High 27.0-32.0 [facility] Comment on above: Performed By: #### M 100.677, M100.678 #### [facility] [address] [place], [address] MCHC (RBC) [Mass/Vol] 35.7 g/dL Normal 32-36 [facility] Comment on above: Performed By: #### M 100.677, M100.8 #### [facility] [address] [place], [address] MCV (RBC) [Entitic vol] 93.1 fL Normal 81-99 [facility] Comment on above: Performed By: #### M 100.677, M100.678 #### [facility] [address] [place], [address] Monocytes/100 WBC (Bld) 8.2 % Normal 0-10 [facility] Comment on above: Performed By: #### M 100.677, M100.678 #### [facility] [address] [place], [address] Neutrophils/100 WBC (Bld) 83.2 % High 47-70 [facility] Comment on above: Performed By: #### M 100.677, M100.678 #### [facility] [address] [place], [address] Nucleated RBC (Bld) [#/Vol] 0 10*3/uL Normal 0-5 [facility] Comment on above: Performed By: #### M 100.677, M1.8 #### [facility] [address] [place], [address] Platelet mean volume (Bld) [Entitic vol] 9.1 fL Normal 6.2-12.0 [facility] Comment on above: Performed By: #### M 100.677, .8 #### [facility] [address] [place], [address] Platelets (Bld) [#/Vol] 218 10*3/uL Normal 150-450 [facility] Comment on above: Performed By: #### M 100.7, #### [facility] [address] [place], [address] RBC (Bld) [#/Vol] 3.94 10*6/uL Low 4.2-5.4 [facility] Comment on above: Performed By: #### M 100.7, .8 #### [facility] [address] [place], [address] RDW SD 42.9 fl Normal 35.1-43.9 [facility] Comment on above: Performed By: #### M 100.7, .8 #### [facility] [address] [place], [address] WBC (Bld) [#/Vol] 9.1 10*3/uL Normal 4.4-11.0 [facility] Comment on above: Performed By: #### M 100.677, .8 #### [facility] [address] [place], [address] Chest PA and Lateralon 01-12 Chest PA and Lateral [facility] Imaging Services [address] [place] [address] Chest PA and Lateral MR#: [id number] Acct: [id number] Name: JAYCEE REED Rep #: [id number] : 1980 F 44 From: Rajiv Nichols MD PCP: Dr. Leia Simons MD Status: [facility] ER Study: Chest PA and Lateral Date of Exam: 01/12/25 Exam# [id number] Ordering Dr: Will Castanon DO PROCEDURE: CHEST PA AND LATERAL REASON FOR EXAM: Chest pain TECHNIQUE: Frontal and lateral views of the chest. COMPARISON: 10/28/2023 FINDINGS: The lungs are clear. The cardiac and mediastinal contours are within limits. Pulmonary vascularity appears within limits. No pneumothorax or pleural effusion. Visualized osseous structures appear within limits. RAD/Chest PA and Lateral IMPRESSION: No evidence of acute disease. Reading Location: [facility] CC: Dr. Leia Simons MD; Dr. Will Castanon DO Tape Cutter: Signed Normal [facility] Emergency Department Summary on 01-12-2025 Emergency Department Summary [facility] Medical Records Department [address] [facility] [place] [address] Emergency Department Summary 01/12/25 MR#: [id number] Acct: [id number] Name: JAYCEE REED Rep #: [id number] : 1980 44 From: Will [place] PCP: Dr. Leia Simons MD Status:[facility] ER Location: ED HPI History of Present Illness Chief Complaint: Chest Pain Informant: patient Narrative Narrative: Presents chest pain this evening. No cough. Yesterday increasing sore throat. Having myalgias. No fevers. Tonsillectomy in the past. No tobacco history. No hypertension diabetes or hyperlipidemia. No family history of MIs at young age. History of IBS. Prior Similar Symptoms: No CVD Risk Factors: Negative for Hypertension, Diabetes, Hypercholesterolemia, Family History 1' or Smoking PE Risk Factors: Negative for Recent Travel/Surgery, Recent Immobilization, Prior DVT or PE or Cancer [facility] Medical History IBS (irritable bowel syndrome) Anxiety Home Medications ???Medication ???Instructions ???Recorded ???Last Taken ???Type amoxicillin 500 mg tablet 1,000 mg (2 x 500 mg) PO DAILY #18 01/12/25 Unknown Rx tabs Allergy/AdvReac Type Severity Reaction Status Date / Time codeine Allergy Unknown Verified 01/12/25 00:59 Family History no significant family his Surgical History History of tubal ligation History of tonsillectomy Social History household members: children Smoking Status: Former smoker alcohol intake: current alcohol intake frequency: holidays/special occasions only substance use type: does not use ROS ROS ED Constitutional Constitutional ED: Denies chills, fever(s) or sweats ENT ENT ED: Reports sore throat Cardiovascular Cardiovascular: Reports chest pain; Denies leg edema, palpitations or racing heartbeat Respiratory/Chest Respiratory/Chest: Denies cough, dyspnea or dyspnea on exertion Gastrointestinal Gastrointestinal: Denies abdominal pain, diarrhea, nausea or vomiting Genitourinary Genitourinary ED: Denies dysuria, hematuria or urinary frequency Musculoskeletal Musculoskeletal: Reports myalgias; Denies back pain, extremity pain or neck pain Integumentary Denies rash or wounds Neurologic Neurologic: Denies headache(s), paresthesias or weakness EXAM Physical Exam Const Vital Signs: 01/12/25 04:00 01/12/25 04:54 01/12/25 05:00 Temperature 98 F Pulse Rate 86 79 79 Respiratory Rate 16 16 18 Blood Pressure 99/65 90/63 90/63 Blood Pressure Mean 76 72 72 Pulse Ox 98 99 99 Oxygen Delivery Method Room Air Room Air Positive well nourished and well developed General Appearance ED: well developed and NAD HEENT Reports moist mucous membranes HEENT Narrative: Tonsils absent erythema on tonsillar pillars with exudates. No trismus. normocephalic and atraumatic Eyes General Eye ED: Yes normal appearance of both eyes Neck full ROM Chest Wall Chest: Negative for tenderness Resp normal respiratory effort and normal air movement Effort and Inspection: symmetric chest movement; Negative for respiratory distress Cardio regular rate, regular rhythm and no murmurs Peripheral Pulses: pulses 2+ throughout GI normal to inspection, nondistended, normoactive bowel sounds and non-tender Palpation: Negative for guarding or rebound tenderness present Extremity normal to inspection General Extremety ED: Negative for edema or tenderness General Extremity: Negative for edema Neuro oriented x3 and no sensory deficits noted Sensorium / Orientation: awake and alert Skin no rashes or lesions noted and no wounds Heart Score History: Slightly/Non-Suspicio us ECG: Normal Age: >45 - <65 years Risk Factors: 1 or 2 Risk Factors Troponin: Score: 2 MDM MDM MDM Narrative Medical decision making narrative: Interventions / MDM: Differential diagnosis: Atypical chest pain, strep pharyngitis Diagnosis considered but do not suspect: Pulm embolism however PERC criteria negative. ACS however EKG and cardiac enzymes negative. My EKG interpretation: Sinus rate of 92, no ST or T wave changes. Imaging independently reviewed and interpreted by myself: 2 view chest x-ray: No acute process. Also read by radiology. External documents reviewed: N/A Test considered but not ordered:N/A ED course: Patient clinical pharyngitis with exudates. Strep test sent, dexamethasone ordered. With her chest pains. EKG obtained sinus rhythm no acute findings. Cardiac workup initiated. Chest x-ray negative. Cardiac enzymes negative x 2. Strep returned positive. COVID, flu, RSV negative. Initial discussion for treatment she agreed with IM Bicillin however (more content not included)... Normal [facility] L501.4020on 01-12-2025 TROPONIN-I HS 5 pg/mL Normal 3.0-54.0 [facility] Comment on above: Result Comment: Albert hagan Note: New Test Units and Gender Specific Reference Ranges. For more information see Policy Stat Procedure Boyds High Sensitivity Troponin (TNIH) and attachments. Performed By: #### M 100.677, M100.678 #### [facility] [address] [place], [place], [address] L501.5425on 01-12-2025 TROPONIN-I HS 6 pg/mL Normal 3.0-54.0 [facility] Comment on above: Order Comment: 1Y Result Comment: Albert hagan Note: New Test Units and Gender Specific Reference Ranges. For more information see Policy Stat Procedure Boyds High Sensitivity Troponin (TNIH) and attachments. Performed By: #### M 100.677, M100.678 #### [facility] [address] [place], [address] M100.677on 01-12-2025 M100.677 Normal Reference Range = Negative S pyo rRNA Throat Ql Probe GeneXpert Instrument, PCR method Rapid Strep A PCR A POSITIVE A Streptococcus group A * This is an amended result. * A prior result that was reported as final has been changed. 01/12/25721 by TAZ [facility] Comment on above: Performed By: #### M 100.677, M100.678 #### [facility] [address] [place], [address] M100.678on 01-12-2025 M100.678 SARS-CoV-2 (COVID 19 ) Negative INFLUENZA A Negative INFLUENZA B Negative RSV PCR Negative [facility] Comment on above: Performed By: #### M 100.677, M100.678 #### [facility] [address] [place], [address] Emergency Department Summary on 12-28-2024 Emergency Department Summary [facility] Medical Records Department [address] [place] [id number] Emergency Department Summary 12/28/24 MR#: [id number] Acct: [id number] Name: JAYCEE REED Rep #: [id number] : 1980 44 From: Darron Laughlin DO PCP: Dr. Leia Simons MD Status:REG ER Location: ED HPI History of Present Illness Chief Complaint: Other, Pain/Inj Narrative Narrative: Chief complaint and HPI: Left neck pain. 44-year-old female with past medical history of IBS presents for evaluation of left neck pain. 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 She states on Sunday she was placed in an awkward position with her neck and felt that it spasmed at that time. She states the pain did not improve so she saw a chiropractor on Sunday. She states that he used a massage therapy garden. He did not do any manipulations such as cracking or twisting of the neck. She states the pain still did not improve so she returned and again the massage gun was used. She has not been taking anything for the pain other than 1 dose of ibuprofen. She has tried ice and heat without any relief. She denies any fever, chills, numbness, tingling, weakness. Denies any trauma to the neck. Review of systems: See HPI Medications: As listed on the chart Allergies: As listed on the chart PFSH: Per chart Vital signs: As listed on the chart. Reviewed. Physical exam: Gen: A O x3, NAD Head: Normocephalic, atraumatic Eyes: No sclera icterus, conjunctiva clear, PERRL, EOMI ENT: Moist mucous membranes Neck: Trachea midline, No JVD, full range of motion, no midline spinal tenderness, no bony step- offs, no signs of cellulitis or ecchymosis, patient's trapezius muscle is tense on the left and reproduces patient's pain with palpation CV: RRR, no murmurs, no peripheral edema Resp: Lungs CTA BL, no w/r/c Musc: Full ROM, no deformity, strength plus 5 out of 5 in the upper extremities, radial and ulnar pulse +2 Skin: Warm, dry Neuro: Alert, oriented, grossly intact, sensation intact Psych: Cooperative, appropriate mood and affect [facility] Medical History IBS (irritable bowel syndrome) Anxiety Home Medications ???Medication ???Instructions ???Recorded ???Last Taken ???Type NK 12/28/24 Unknown History Allergy/AdvReac Type Severity Reaction Status Date / Time codeine Allergy Unknown Verified 12/28/24 23:02 Surgical History History of tubal ligation History of tonsillectomy Social History household members: children Smoking Status: Former smoker alcohol intake: current alcohol intake frequency: holidays/special occasions only substance use type: does not use EXAM Physical Exam Const Vital Signs: 12/28/24 23:02 12/28/24 23:02 Temperature 97.7 F L Temperature Source Oral Pulse Rate 91 Respiratory Rate 17 Respiratory Pattern Normal Pulse Ox 98 MDM MDM MDM Narrative Medical decision making narrative: 44-year-old female with past medical history of IBS presents for evaluation of left neck pain. Patient denies any fever, chills, numbness, tingling, weakness. Denies any trauma to the neck. On physical exam patient has a tense left trapezius muscle. With palpation this recreates her pain. Given that she had no direct trauma to the neck as well as no manipulation at the chiropractor I do not think any imaging is needed at this time. I suspect muscle spasm/strain. Patient given IM Toradol and Valium. I will reevaluate the patient. Patient declined IM Toradol and is requesting p.o. Toradol. I do think this is appropriate. P.o. Toradol ordered. On reevaluation, patient states her pain is improved. Patient is stable to discharge home. She will be getting a ride home. Patient was educated that she will be discharged home on Flexeril prescription. She is educated not to drive or operate heavy machinery as these can make you fatigued. She confirmed understanding. She was educated on ibuprofen as needed for pain. Follow-up with PCP. Return precautions explained. Impression: 1. Left neck spasm Discharge Plan Triage Chief Complaint: Other, Pain/Inj ED Provider: Darron Laughlin Dx/Rx/DC Orders Prescriptions: No Action NK Primary Care Provider: Leia Simons Referrals: Liea Simons MD [Primary Care Provider] - Print Language: Slovenian What to do if you have Problems For any increased pain, shortness of breath, bleeding, nausea or vomiting, chest pain, or any unexpected problems, contact your Primary Care Provider. Call [facility] ([phone]) or report to the closest Emergency Room. Call 911 if necessary. (more content not included)... [facility] (AGGBRCR) JAYCEE REED ([id number]) 1980 F Date Time Provider Department 12/03/24 [facility] During your visit today, we recorded the following information about you: Ayanna Sandoval MA 12/03/2024 12:02 PM Signed A message was left for the patient to call the office and ask for Ayanna to schedule dx films and biopsy. Ayanna Sandoval MA Allergies As of Date: 12/03/2024 Noted Allergy Reaction CODEINE 10/01/2008 2 - Rash LATEX 02/13/2023 2 - Rash NICKEL 11/07/2011 2 - Rash Date Reviewed: 10/08/2024 Reviewed by: Aurelia Borges APRN.[employer] - Fully Assessed Reason for Visit: Appointment [186] Prescriptions as of 12/03/2024 - amoxicillin-clavulana te potassium (AUGMENTIN) 875-125 mg per tablet Take 1 tablet by mouth two times a day. - Lactobacillus acidophilus (FLORAJEN ACIDOPHILUS) 20 billion cell capsule Take 1 capsule by mouth once daily. - fluticasone (FLONASE) 50 mcg/actuation nasal spray Use 2 Sprays in each nostril once daily. - MEDICATION, NON-DATABASE 2 capsules once daily. BIO CLEANSE SUPPLEMENT WITH MAGNESIUM Problem List As Of Date 12/03/2024 Noted Resolved Calculus of ureter [N20.1] 10/01/2008 11/10/2011 Vaginal irritation [N89.8] 11/07/2011 11/25/2011 Chronic vulvovaginitis [N76.1] 11/25/2011 11/25/2011 Vulvar irritation [N90.89] 11/25/2011 01/10/2013 BV (bacterial vaginosis) [N76.0, B96.89] 12/29/2011 03/26/2012 Leukorrhea, not specified as infective [N89.8] 03/18/2012 01/10/2013 Unspecified inflammatory disease of female pelv*03/18/2012 03/26/2012 Vaginitis and vulvovaginitis, unspecified [N76.*03/18/2012 01/10/2013 Unspecified symptom associated with female zac*03/18/2012 03/26/2012 Chronic vaginitis [N76.1] 01/10/2013 02/05/2015 Pelvic pain in female [R10.2] 03/07/2013 02/05/2015 Support system deficit [Z65.8] 06/02/2014 02/05/2015 with adoption planned [Z34.90] 06/02/2014 10/23/2014 History of kidney stones [Z87.442] 06/02/2014 02/05/2015 History of hypoglycemia [Z86.39] 06/02/2014 02/05/2015 Constipation [K59.00] 06/02/2014 SUPRV HIGH-RISK PREG NOS [V23.9] [O09.90] 09/24/2014 02/05/2015 IUGR (intrauterine growth restriction) [QTO4172]09/24/2014 02/05/2015 CMV (cytomegalovirus) antibody positive [R76.8] 12/30/2014 02/05/2015 Pre-op testing [Z01.818] 01/15/2024 Encounter Status:Closed by AYANNA SANDOVAL on 12/03/24 [facility] 12-01-2024 [facility] Telephone (MARA) JAYCEE REED ([id number]) 1980 F Date Time Provider Department 12/01/24 AURELIA BORGES During your visit today, we recorded the following information about you: Aurelia Borges APRN.CNP 12/01/2024 7:46 AM Signed See phone note 11/26. Please call patient. Aurelia Borges APRN.CNP Allergies As of Date: 12/01/2024 Noted Allergy Reaction CODEINE 10/01/2008 2 - Rash LATEX 02/13/2023 2 - Rash NICKEL 11/07/2011 2 - Rash Date Reviewed: 10/08/2024 Reviewed by: Aurelia Borges APRN.CNP - Fully Assessed Reason for Visit: Results [95] Prescriptions as of 12/01/2024 - amoxicillin-clavulana te potassium (AUGMENTIN) 875-125 mg per tablet Take 1 tablet by mouth two times a day. - Lactobacillus acidophilus (FLORAJEN ACIDOPHILUS) 20 billion cell capsule Take 1 capsule by mouth once daily. - fluticasone (FLONASE) 50 mcg/actuation nasal spray Use 2 Sprays in each nostril once daily. - MEDICATION, NON-DATABASE 2 capsules once daily. BIO CLEANSE SUPPLEMENT WITH MAGNESIUM Problem List As Of Date 12/01/2024 Noted Resolved Calculus of ureter [N20.1] 10/01/2008 11/10/2011 Vaginal irritation [N89.8] 11/07/2011 11/25/2011 Chronic vulvovaginitis [N76.1] 11/25/2011 11/25/2011 Vulvar irritation [N90.89] 11/25/2011 01/10/2013 BV (bacterial vaginosis) [N76.0, B96.89] 12/29/2011 03/26/2012 Leukorrhea, not specified as infective [N89.8] 03/18/2012 01/10/2013 Unspecified inflammatory disease of female pelv*03/18/2012 03/26/2012 Vaginitis and vulvovaginitis, unspecified [N76.*03/18/2012 01/10/2013 Unspecified symptom associated with female zac*03/18/2012 03/26/2012 Chronic vaginitis [N76.1] 01/10/2013 02/05/2015 Pelvic pain in female [R10.2] 03/07/2013 02/05/2015 Support system deficit [Z65.8] 06/02/2014 02/05/2015 with adoption planned [Z34.90] 06/02/2014 10/23/2014 History of kidney stones [Z87.442] 06/02/2014 02/05/2015 History of hypoglycemia [Z86.39] 06/02/2014 02/05/2015 Constipation [K59.00] 06/02/2014 SUPRV HIGH-RISK PREG NOS [V23.9] [O09.90] 09/24/2014 02/05/2015 IUGR (intrauterine growth restriction) [FRE5406]09/24/2014 02/05/2015 CMV (cytomegalovirus) antibody positive [R76.8] 12/30/2014 02/05/2015 Pre-op testing [Z01.818] 01/15/2024 Encounter Status:Closed by CARMEN FLORES on 12/01/24 [facility] [place] 11-26-2024 STEPHENN Telephone (OBGYWM) JAYCEE REED ([id number]) 1980 F Date Time Provider Department 11/26/24 AURELIA BORGES During your visit today, we recorded the following information about you: Carmen Flores RN 12/01/2024 9:20 AM Signed Patient called and notified of results and instructions. Patient verbalizes understanding and transferred to general surgery to schedule appointment. Carmen Flores RN Allergies As of Date: 11/26/2024 Noted Allergy Reaction CODEINE 10/01/2008 2 - Rash LATEX 02/13/2023 2 - Rash NICKEL 11/07/2011 2 - Rash Date Reviewed: 10/08/2024 Reviewed by: Aurelia Borges APRN.[employer] - Fully Assessed Reason for Visit: Results [95] Primary Visit Diagnosis:Abnormal mammogram [R92.8] Order(s):CONSULT TO GENERAL SURGERY [9011] Order #: [id number]: 1 FUTURE Prescriptions as of 12/01/2024 - amoxicillin-clavulana te potassium (AUGMENTIN) 875-125 mg per tablet Take 1 tablet by mouth two times a day. - Lactobacillus acidophilus (FLORAJEN ACIDOPHILUS) 20 billion cell capsule Take 1 capsule by mouth once daily. - fluticasone (FLONASE) 50 mcg/actuation nasal spray Use 2 Sprays in each nostril once daily. - MEDICATION, NON-DATABASE 2 capsules once daily. BIO CLEANSE SUPPLEMENT WITH MAGNESIUM Problem List As Of Date 11/26/2024 Noted Resolved Calculus of ureter [N20.1] 10/01/2008 11/10/2011 Vaginal irritation [N89.8] 11/07/2011 11/25/2011 Chronic vulvovaginitis [N76.1] 11/25/2011 11/25/2011 Vulvar irritation [N90.89] 11/25/2011 01/10/2013 BV (bacterial vaginosis) [N76.0, B96.89] 12/29/2011 03/26/2012 Leukorrhea, not specified as infective [N89.8] 03/18/2012 01/10/2013 Unspecified inflammatory disease of female pelv*03/18/2012 03/26/2012 Vaginitis and vulvovaginitis, unspecified [N76.*03/18/2012 01/10/2013 Unspecified symptom associated with female zac*03/18/2012 03/26/2012 Chronic vaginitis [N76.1] 01/10/2013 02/05/2015 Pelvic pain in female [R10.2] 03/07/2013 02/05/2015 Support system deficit [Z65.8] 06/02/2014 02/05/2015 with adoption planned [Z34.90] 06/02/2014 10/23/2014 History of kidney stones [Z87.442] 06/02/2014 02/05/2015 History of hypoglycemia [Z86.39] 06/02/2014 02/05/2015 Constipation [K59.00] 06/02/2014 SUPRV HIGH-RISK PREG NOS [V23.9] [O09.90] 09/24/2014 02/05/2015 IUGR (intrauterine growth restriction) [TNS4208]09/24/2014 02/05/2015 CMV (cytomegalovirus) antibody positive [R76.8] 12/30/2014 02/05/2015 Pre-op testing [Z01.818] 01/15/2024 Encounter Status:Closed by AURELIA BORGES on 11/26/24 [facility] DBT Breast - left diagnostic for implanton 11-26-2024 IMPRESSION: Finding 1: Calcifications in the upper outer quadrant of the left breast, posterior depth are suspicious for malignancy. Stereotactic biopsy is recommended. Finding 2: Simple cyst in the left breast at 1 o'clock is benign. Return to annual screening mammogram is recommended. Annual mammogram will be due in 11 months. BI-RADS Category 4: Suspicious RISK: Based on the Tyrer-Cuzick (TC) risk assessment model, this patient has a 10.8% lifetime risk of developing breast cancer, meaning they are at average risk for developing breast cancer. However, this is only an estimate based on available history provided on the patient's questionnaire. We encourage all patients to talk with their providers about these results, further recommendations for managing breast health, and appropriate supplemental screening options if the patient has dense breast tissue. Interpreting Radiologist: Juan J Colmenares M.D. Electronically signed on: 11/26/2024 Tape Cutter: UMU Transcribe Date/Time: Nov 26 2024 2:55P Dictated by: JUAN J COLMENARES MD This examination was interpreted and the report reviewed and electronically signed by: JUAN J COLMENARES MD on Nov 26 2024 3:48PM [facility] DIVISION OF RADIOLOGY * * *Final Report* * * DATE OF EXAM: Nov 26 2024 3:14PM [facility] 0628 - [facility] L[facility]ES LT / PROCEDURE REASON: Abnormal mammogram * * * * Physician Interpretation * * * * RESULT: [place] [address] #[id number] - [facility] W [facility]IANNE LT #[id number] - [facility] [employer] BREAST LTD LT HISTORY: Patient is 44 years old and is seen for diagnostic evaluation of abnormal mammogram in the left breast. Patient states no personal history of breast cancer. Patient states no personal history of other cancers. COMPARISON STUDIES: The present examination has been compared to prior imaging studies dated 11/23/2023 (ultrasound), 11/23/2023 (mammogram), 01/07/2024 (MRI) and 10/22/2024 (mammogram). MAMMOGRAM TECHNIQUE: The study was acquired using full field digital technology and interpreted from soft copy. Digital Breast Tomosynthesis (DBT) images were obtained and used to assist in the interpretation of this examination. Computer-aided detection was utilized by the radiologist in the interpretation of this examination. MAMMOGRAM FINDINGS: The breast is extremely dense, which lowers the sensitivity of mammography. Finding 1: There are grouped amorphous calcifications in the upper outer quadrant of the left breast, posterior depth. Finding 2: There is an isodense focal asymmetry measuring 3 cm with circumscribed margins in the left breast at 1 o'clock. ULTRASOUND TECHNIQUE: Targeted ultrasound of the indicated area was performed. Rojas scale images were saved. ULTRASOUND FINDINGS: Finding 2: Ultrasound demonstrates an oval simple cyst measuring 3 cm in the left breast at 1 o'clock. Internal echotexture is anechoic. DIVISION OF RADIOLOGY Provider, [facility] - 11/26/2024 * * *Final Report* * * DATE OF EXAM: Nov 26 2024 3:14PM [facility] 0628 - [facility] [employer] W MARIANNE LT / PROCEDURE REASON: Abnormal mammogram * * * * Physician Interpretation * * * * RESULT: [place] [address] #[id number] - [facility] [employer] #[id number] - [facility] BREAST LTD LT HISTORY: Patient is 44 years old and is seen for diagnostic evaluation of abnormal mammogram in the left breast. Patient states no personal history of breast cancer. Patient states no personal history of other cancers. COMPARISON STUDIES: The present examination has been compared to prior imaging studies dated 11/23/2023 (ultrasound), 11/23/2023 (mammogram), 01/07/2024 (MRI) and 10/22/2024 (mammogram). MAMMOGRAM TECHNIQUE: The study was acquired using full field digital technology and interpreted from soft copy. Digital Breast Tomosynthesis (DBT) images were obtained and used to assist in the interpretation of this examination. Computer-aided detection was utilized by the radiologist in the interpretation of this examination. MAMMOGRAM FINDINGS: The breast is extremely dense, which lowers the sensitivity of mammography. Finding 1: There are grouped amorphous calcifications in the upper outer quadrant of the left breast, posterior depth. Finding 2: There is an isodense focal asymmetry measuring 3 cm with circumscribed margins in the left breast at 1 o'clock. ULTRASOUND TECHNIQUE: Targeted ultrasound of the indicated area was performed. Rojas scale images were saved. ULTRASOUND FINDINGS: Finding 2: Ultrasound demonstrates an oval simple cyst measuring 3 cm in the left breast at 1 o'clock. Internal echotexture is anechoic. IMPRESSION IMPRESSION: Finding 1: Calcifications in the upper outer quadrant of the left breast, posterior depth are suspicious for malignancy. Stereotactic biopsy is recommended. Finding 2: Simple cyst in the left breast at 1 o'clock is benign. Return to annual screening mammogram is recommended. Annual mammogram will be due in 11 months. BI-RADS Category 4: Suspicious RISK: Based on the Tyrer-Cuzick (TC) risk assessment model, this patient has a 10.8% lifetime risk of developing breast cancer, meaning they are at average risk for developing breast cancer. However, this is only an estimate based on available history provided on the patient's questionnaire. We encourage all patients to talk with their providers about these results, further recommendations for managing breast health, and appropriate supplemental screening options if the patient has dense breast tissue. Interpreting Radiologist: Juan J Colmenares M.D. Electronically signed on: 11/26/2024 Tape Cutter: UMU Transcribe Date/Time: Nov 26 2024 2:55P Dictated by: JUANJ COLMENARES MD This examination was interpreted and the report reviewed and electronically signed by: JUAN J COLMENARES MD on Nov 26 2024 3:48PM [facility] LOPES LTon [address] [facility] [address] [facility]NE [facility] * * *Final Report* * * DATE OF EXAM: Nov 26 2024 3:14PM [facility] 0628 - [place] LOPES LT / PROCEDURE REASON: Abnormal mammogram * * * * Physician Interpretation * * * * RESULT: [place] [id number] #[id number] - [facility] LOPES LT #[id number] - [facility] BREAST LTD HISTORY: Patient is 44 years old and is seen for diagnostic evaluation of abnormal mammogram in the left breast. Patient states no personal history of breast cancer. Patient states no personal history of other cancers. COMPARISON STUDIES: The present examination has been compared to prior imaging studies dated 11/23/2023 (ultrasound), 11/23/2023 (mammogram), 01/07/2024 (MRI) and 10/22/2024 (mammogram). MAMMOGRAM TECHNIQUE: The study was acquired using full field digital technology and interpreted from soft copy. Digital Breast Tomosynthesis (DBT) images were obtained and used to assist in the interpretation of this examination. Computer-aided detection was utilized by the radiologist in the interpretation of this examination. MAMMOGRAM FINDINGS: The breast is extremely dense, which lowers the sensitivity of mammography. Finding 1: There are grouped amorphous calcifications in the upper outer quadrant of the left breast, posterior depth. Finding 2: There is an isodense focal asymmetry measuring 3 cm with circumscribed margins in the left breast at 1 o'clock. ULTRASOUND TECHNIQUE: Targeted ultrasound of the indicated area was performed. Rojas scale images were saved. ULTRASOUND FINDINGS: Finding 2: Ultrasound demonstrates an oval simple cyst measuring 3 cm in the left breast at 1 o'clock. Internal echotexture is anechoic. IMPRESSION: Finding 1: Calcifications in the upper outer quadrant of the left breast, posterior depth are suspicious for malignancy. Stereotactic biopsy is recommended. Finding 2: Simple cyst in the left breast at 1 o'clock is benign. Return to annual screening mammogram is recommended. Annual mammogram will be due in 11 months. BI-RADS Category 4: Suspicious RISK: Based on the Tyrer-Cuzick (TC) risk assessment model, this patient has a 10.8% lifetime risk of developing breast cancer, meaning they are at average risk for developing breast cancer. However, this is only an estimate based on available history provided on the patient's questionnaire. We encourage all patients to talk with their providers about these results, further recommendations for managing breast health, and appropriate supplemental screening options if the patient has dense breast tissue. Interpreting Radiologist: Juan J Colmenares M.D. Electronically signed on: 11/26/2024 Tape Cutter: UMU Transcribe Date/Time: Nov 26 2024 2:55P Dictated by: JUAN J COLMENARES MD This examination was interpreted and the report reviewed and electronically signed by: JUAN J COLMENARES MD on Nov 26 2024 3:48PM EST [id number] Normal [facility] [employer] BREAST LTD LTon 11-26 [facility] US BREAST LTD LT * * *Final Report* * * DATE OF EXAM: Nov 26 2024 3:35PM [facility] 0593 - [facility] [employer] BREAST LTD LT / PROCEDURE REASON: Abnormal mammogram * * * * Physician Interpretation * * * * [place] [address] #[id number] - [facility] LOPES LT #[id number] - [facility] [employer] BREAST LTD LT HISTORY: Patient is 44 years old and is seen for diagnostic evaluation of abnormal mammogram in the left breast. Patient states no personal history of breast cancer. Patient states no personal history of other cancers. COMPARISON STUDIES: The present examination has been compared to prior imaging studies dated 11/23/2023 (ultrasound), 11/23/2023 (mammogram), 01/07/2024 (MRI) and 10/22/2024 (mammogram). MAMMOGRAM TECHNIQUE: The study was acquired using full field digital technology and interpreted from soft copy. Digital Breast Tomosynthesis (DBT) images were obtained and used to assist in the interpretation of this examination. Computer-aided detection was utilized by the radiologist in the interpretation of this examination. MAMMOGRAM FINDINGS: The breast is extremely dense, which lowers the sensitivity of mammography. Finding 1: There are grouped amorphous calcifications in the upper outer quadrant of the left breast, posterior depth. Finding 2: There is an isodense focal asymmetry measuring 3 cm with circumscribed margins in the left breast at 1 o'clock. ULTRASOUND TECHNIQUE: Targeted ultrasound of the indicated area was performed. Rojas scale images were saved. ULTRASOUND FINDINGS: Finding 2: Ultrasound demonstrates an oval simple cyst measuring 3 cm in the left breast at 1 o'clock. Internal echotexture is anechoic. IMPRESSION: Finding 1: Calcifications in the upper outer quadrant of the left breast, posterior depth are suspicious for malignancy. Stereotactic biopsy is recommended. Finding 2: Simple cyst in the left breast at 1 o'clock is benign. Return to annual screening mammogram is recommended. Annual mammogram will be due in 11 months. BI-RADS Category 4: Suspicious RISK: Based on the Tyrer-Cuzick (TC) risk assessment model, this patient has a 10.8% lifetime risk of developing breast cancer, meaning they are at average risk for developing breast cancer. However, this is only an estimate based on available history provided on the patient's questionnaire. We encourage all patients to talk with their providers about these results, further recommendations for managing breast health, and appropriate supplemental screening options if the patient has dense breast tissue. Interpreting Radiologist: Juan J Colmenares M.D. Electronically signed on: 11/26/2024 Tape Cutter: UMU Transcribe Date/Time: Nov 26 2024 3:27P Dictated by : JUAN J COLMENARES MD This examination was interpreted and the report reviewed and electronically signed by: JUAN J COLMENARES MD on Nov 26 2024 3:48PM EST [id number] [facility] No Panel InformationOrdered By: [facility] Provider on 11-26-2024 [facility] No Panel Informationon 11-26 Radiology Study observation (narrative) [facility] US Breast - left limitedon 0 11-26-2024 IMPRESSION: Finding 1: Calcifications in the upper outer quadrant of the left breast, posterior depth are suspicious for malignancy. Stereotactic biopsy is recommended. Finding 2: Simple cyst in the left breast at 1 o'clock is benign. Return to annual screening mammogram is recommended. Annual mammogram will be due in 11 months. BI-RADS Category 4: Suspicious RISK: Based on the Tyrer-Cuzick (TC) risk assessment model, this patient has a 10.8% lifetime risk of developing breast cancer, meaning they are at average risk for developing breast cancer. However, this is only an estimate based on available history provided on the patient's questionnaire. We encourage all patients to talk with their providers about these results, further recommendations for managing breast health, and appropriate supplemental screening options if the patient has dense breast tissue. Interpreting Radiologist: Juan J Colmenares M.D. Electronically signed on: 11/26/2024 Tape Cutter: UMU Transcribe Date/Time: Nov 26 2024 3:27P Dictated by : JUAN J COLMENARES MD This examination was interpreted and the report reviewed and electronically signed by: JUAN J COLMENARES MD on Nov 26 2024 3:48PM [facility] DIVISION OF RADIOLOGY * * *Final Report* * * DATE OF EXAM: Nov 26 2024 3:35PM [facility] 0593 - [facility] US BREAST LTD LT / PROCEDURE REASON: Abnormal mammogram * * * * Physician Interpretation * * * * [place] [address] #[id number] - [facility] [facility] MARIANNE LT #[id number] - [facility] [employer] BREAST LTD LT HISTORY: Patient is 44 years old and is seen for diagnostic evaluation of abnormal mammogram in the left breast. Patient states no personal history of breast cancer. Patient states no personal history of other cancers. COMPARISON STUDIES: The present examination has been compared to prior imaging studies dated 11/23/2023 (ultrasound), 11/23/2023 (mammogram), 01/07/2024 (MRI) and 10/22/2024 (mammogram). MAMMOGRAM TECHNIQUE: The study was acquired using full field digital technology and interpreted from soft copy. Digital Breast Tomosynthesis (DBT) images were obtained and used to assist in the interpretation of this examination. Computer-aided detection was utilized by the radiologist in the interpretation of this examination. MAMMOGRAM FINDINGS: The breast is extremely dense, which lowers the sensitivity of mammography. Finding 1: There are grouped amorphous calcifications in the upper outer quadrant of the left breast, posterior depth. Finding 2: There is an isodense focal asymmetry measuring 3 cm with circumscribed margins in the left breast at 1 o'clock. ULTRASOUND TECHNIQUE: Targeted ultrasound of the indicated area was performed. Rojas scale images were saved. ULTRASOUND FINDINGS: Finding 2: Ultrasound demonstrates an oval simple cyst measuring 3 cm in the left breast at 1 o'clock. Internal echotexture is anechoic. DIVISION OF RADIOLOGY Provider, [facility] - 11/26/2024 * * *Final Report* * * DATE OF EXAM: Nov 26 2024 3:35PM [facility] 0593 - [facility] [employer] BREAST L[employer] LT / PROCEDURE REASON: Abnormal mammogram * * * * Physician Interpretation * * * * [place] [address] #[id number] - [facility] [place]OPES LT #[id number] - [facility] US BREAST LTD LT HISTORY: Patient is 44 years old and is seen for diagnostic evaluation of abnormal mammogram in the left breast. Patient states no personal history of breast cancer. Patient states no personal history of other cancers. COMPARISON STUDIES: The present examination has been compared to prior imaging studies dated 11/23/2023 (ultrasound), 11/23/2023 (mammogram), 01/07/2024 (MRI) and 10/22/2024 (mammogram). MAMMOGRAM TECHNIQUE: The study was acquired using full field digital technology and interpreted from soft copy. Digital Breast Tomosynthesis (DBT) images were obtained and used to assist in the interpretation of this examination. Computer-aided detection was utilized by the radiologist in the interpretation of this examination. MAMMOGRAM FINDINGS: The breast is extremely dense, which lowers the sensitivity of mammography. Finding 1: There are grouped amorphous calcifications in the upper outer quadrant of the left breast, posterior depth. Finding 2: There is an isodense focal asymmetry measuring 3 cm with circumscribed margins in the left breast at 1 o'clock. ULTRASOUND TECHNIQUE: Targeted ultrasound of the indicated area was performed. Rojas scale images were saved. ULTRASOUND FINDINGS: Finding 2: Ultrasound demonstrates an oval simple cyst measuring 3 cm in the left breast at 1 o'clock. Internal echotexture is anechoic. IMPRESSION IMPRESSION: Finding 1: Calcifications in the upper outer quadrant of the left breast, posterior depth are suspicious for malignancy. Stereotactic biopsy is recommended. Finding 2: Simple cyst in the left breast at 1 o'clock is benign. Return to annual screening mammogram is recommended. Annual mammogram will be due in 11 months. BI-RADS Category 4: Suspicious RISK: Based on the Tyrer-Cuzick (TC) risk assessment model, this patient has a 10.8% lifetime risk of developing breast cancer, meaning they are at average risk for developing breast cancer. However, this is only an estimate based on available history provided on the patient's questionnaire. We encourage all patients to talk with their providers about these results, further recommendations for managing breast health, and appropriate supplemental screening options if the patient has dense breast tissue. Interpreting Radiologist: Juan J Colmenares M.D. Electronically signed on: 11/26/2024 Tape Cutter: UMU Transcribe Date/Time: Nov 26 2024 3:27P Dictated by : JUAN J COLMENARES MD This examination was interpreted and the report reviewed and electronically signed by: JUAN J COLMENARES MD on Nov 26 2024 3:48PM [facility] [place] 10-24-2024 CNPN Telephone (RADMN) JAYCEE REED ([id number]) 1980 F Date Time Provider Department 10/24/24 JUDY CHEW During your visit today, we recorded the following information about you: Allergies As of Date: 10/24/2024 Noted Allergy Reaction CODEINE 10/01/2008 2 - Rash LATEX 02/13/2023 2 - Rash NICKEL 11/07/2011 2 - Rash Date Reviewed: 10/08/2024 Reviewed by: Aurelia Borges APRN.[facility] - Fully Assessed Reason for Visit: Mammogram Result Call Back [[id number]] Prescriptions as of 10/24/2024 - amoxicillin-clavulana te potassium (AUGMENTIN) 875-125 mg per tablet Take 1 tablet by mouth two times a day. - Lactobacillus acidophilus (FLORAJEN ACIDOPHILUS) 20 billion cell capsule Take 1 capsule by mouth once daily. - fluticasone (FLONASE) 50 mcg/actuation nasal spray Use 2 Sprays in each nostril once daily. - MEDICATION, NON-DATABASE 2 capsules once daily. BIO CLEANSE SUPPLEMENT WITH MAGNESIUM Problem List As Of Date 10/24/2024 Noted Resolved Calculus of ureter [N20.1] 10/01/2008 11/10/2011 Vaginal irritation [N89.8] 11/07/2011 11/25/2011 Chronic vulvovaginitis [N76.1] 11/25/2011 11/25/2011 Vulvar irritation [N90.89] 11/25/2011 01/10/2013 BV (bacterial vaginosis) [N76.0, B96.89] 12/29/2011 03/26/2012 Leukorrhea, not specified as infective [N89.8] 03/18/2012 01/10/2013 Unspecified inflammatory disease of female pelv*03/18/2012 03/26/2012 Vaginitis and vulvovaginitis, unspecified [N76.*03/18/2012 01/10/2013 Unspecified symptom associated with female zac*03/18/2012 03/26/2012 Chronic vaginitis [N76.1] 01/10/2013 02/05/2015 Pelvic pain in female [R10.2] 03/07/2013 02/05/2015 Support system deficit [Z65.8] 06/02/2014 02/05/2015 with adoption planned [Z34.90] 06/02/2014 10/23/2014 History of kidney stones [Z87.442] 06/02/2014 02/05/2015 History of hypoglycemia [Z86.39] 06/02/2014 02/05/2015 Constipation [K59.00] 06/02/2014 SUPRV HIGH-RISK PREG NOS [V23.9] [O09.90] 09/24/2014 02/05/2015 IUGR (intrauterine growth restriction) [CQY3827]09/24/2014 02/05/2015 CMV (cytomegalovirus) antibody positive [R76.8] 12/30/2014 02/05/2015 Pre-op testing [Z01.818] 01/15/2024 Encounter Status:Closed by PARISA MANN on 10/24/24 [facility] [place] 10-22-2024 CNPN Telephone (OBGYWM) JAYCEE ERED ([id number]) 1980 F Date Time Provider Department 10/22/24 AURELIA BORGESWM During your visit today, we recorded the following information about you: Brenda Mccormack RN 10/23/2024 2:51 PM Signed Left message for patient to call office or check [employer] message. SARAH Minor Trisha, RN 10/24/2024 2:24 PM Signed Called and notified patient.Transferred to breast imaging scheduling dept. Brenda Mccormack RN Allergies As of Date: 10/22/2024 Noted Allergy Reaction CODEINE 10/01/2008 2 - Rash LATEX 02/13/2023 2 - Rash NICKEL 11/07/2011 2 - Rash Date Reviewed: 10/08/2024 Reviewed by: Aurelia Borges APRN.[employer]DERER [employer]REL RIBS - Fully Assessed Reason for Visit: Results [95] Primary Visit Diagnosis:Abnormal mammogram [R92.8] Order(s):US BREAST LTD LEFT [[id number]] Order #: [id number] FUTURE [facility]NOST[facility] LEFT [[id number]] Order #: [id number] FUTURE Prescriptions as of 10/24/2024 - amoxicillin-clavulana te potassium (AUGMENTIN) 875-125 mg per tablet Take 1 tablet by mouth two times a day. - Lactobacillus acidophilus (FLORAJEN ACIDOPHILUS) 20 billion cell capsule Take 1 capsule by mouth once daily. - fluticasone (FLONASE) 50 mcg/actuation nasal spray Use 2 Sprays in each nostril once daily. - MEDICATION, NON-DATABASE 2 capsules once daily. BIO CLEANSE SUPPLEMENT WITH MAGNESIUM Problem List As Of Date 10/22/2024 Noted Resolved Calculus of ureter [N20.1] 10/01/2008 11/10/2011 Vaginal irritation [N89.8] 11/07/2011 11/25/2011 Chronic vulvovaginitis [N76.1] 11/25/2011 11/25/2011 Vulvar irritation [N90.89] 11/25/2011 01/10/2013 BV (bacterial vaginosis) [N76.0, B96.89] 12/29/2011 03/26/2012 Leukorrhea, not specified as infective [N89.8] 03/18/2012 01/10/2013 Unspecified inflammatory disease of female pelv*03/18/2012 03/26/2012 Vaginitis and vulvovaginitis, unspecified [N76.*03/18/2012 01/10/2013 Unspecified symptom associated with female zac*03/18/2012 03/26/2012 Chronic vaginitis [N76.1] 01/10/2013 02/05/2015 Pelvic pain in female [R10.2] 03/07/2013 02/05/2015 Support system deficit [Z65.8] 06/02/2014 02/05/2015 with adoption planned [Z34.90] 06/02/2014 10/23/2014 History of kidney stones [Z87.442] 06/02/2014 02/05/2015 History of hypoglycemia [Z86.39] 06/02/2014 02/05/2015 Constipation [K59.00] 06/02/2014 SUPRV HIGH-RISK PREG NOS [V23.9] [O09.90] 09/24/2014 02/05/2015 IUGR (intrauterine growth restriction) [HTO9764]09/24/2014 02/05/2015 CMV (cytomegalovirus) antibody positive [R76.8] 12/30/2014 02/05/2015 Pre-op testing [Z01.818] 01/15/2024 Encounter Status:Closed by BRENDA MCCORMACK on 10/24/24 Normal [facility] DBT Breast - bilateral scree catherine 10-22-2024 IMPRESSION: Finding 1: Post-biopsy changes in the right breast is benign. Finding 2: Focal asymmetry in the upper outer quadrant of the left breast requires additional evaluation. Diagnostic ultrasound is recommended. Finding 3: Calcifications in the left breast require additional evaluation. Diagnostic mammogram is recommended. BI-RADS Category 0: Incomplete: Needs Additional Imaging Evaluation RISK: Based on the Tyrer-Cuzick (TC) risk assessment model, this patient has a 10.8% lifetime risk of developing breast cancer, meaning they are at average risk for developing breast cancer. However, this is only an estimate based on available history provided on the patient's questionnaire. We encourage all patients to talk with their providers about these results, further recommendations for managing breast health, and appropriate supplemental screening options if the patient has dense breast tissue. Interpreting Radiologist: Judy Chew M.D. Electronically signed on: 10/22/2024 Tape Cutter: MAGVIW Transcribe Date/Time: Oct 22 2024 2:27P Dictated by: JUDY CHEW MD This examination was interpreted and the report reviewed and electronically signed by: JUDY CHEW MD on Oct 22 2024 3:49PM [facility] DIVISION OF RADIOLOGY * * *Final Report* * * DATE OF EXAM: Oct 22 2024 3:36PM [facility] 0582 - [facility] SCREENING W MARIANNE / PROCEDURE REASON: Encounter for screening mammogram for breast cancer * * * * Physician Interpretation * * * * RESULT: [facility] [address] [place] [address] #[id number] - [facility] SCREENING W MARIANNE HISTORY: Patient is 44 years old and is seen for screening and is asymptomatic in both breasts. Patient states no personal history of breast cancer. Patient states no personal history of other cancers. COMPARISON STUDIES: The present examination has been compared to prior imaging studies dated 07/17/2018 (mammogram), 10/23/2023 (ultrasound), 11/23/2023 (ultrasound), 11/23/2023 (mammogram) and 01/07/2024 (MRI). MAMMOGRAM TECHNIQUE: The study was acquired using full field digital technology and interpreted from soft copy. Digital Breast Tomosynthesis (DBT) images were obtained and used to assist in the interpretation of this examination. Computer-aided detection was utilized by the radiologist in the interpretation of this examination. MAMMOGRAM FINDINGS: The breasts are extremely dense, which lowers the sensitivity of mammography. Finding 1: There are post-biopsy changes in the right breast. Finding 2: There is a focal asymmetry in the anterior depth upper outer quadrant of the left breast. Finding 3: There are grouped punctate calcifications in the left breast. DIVISION OF RADIOLOGY Provider, [facility] - 10/22/2024 * * *Final Report* * * DATE OF EXAM: Oct 22 2024 3:36PM [facility] 0582 - [place] SCREENING W MARINANE / PROCEDURE REASON: Encounter for screening mammogram for breast cancer * * * * Physician Interpretation * * * * RESULT: [facility] [address] [place] [address] #[id number] - [facility] SCREENING W MARIANNE HISTORY: Patient is 44 years old and is seen for screening and is asymptomatic in both breasts. Patient states no personal history of breast cancer. Patient states no personal history of other cancers. COMPARISON STUDIES: The present examination has been compared to prior imaging studies dated 07/17/2018 (mammogram), 10/23/2023 (ultrasound), 11/23/2023 (ultrasound), 11/23/2023 (mammogram) and 01/07/2024 (MRI). MAMMOGRAM TECHNIQUE: The study was acquired using full field digital technology and interpreted from soft copy. Digital Breast Tomosynthesis (DBT) images were obtained and used to assist in the interpretation of this examination. Computer-aided detection was utilized by the radiologist in the interpretation of this examination. MAMMOGRAM FINDINGS: The breasts are extremely dense, which lowers the sensitivity of mammography. Finding 1: There are post-biopsy changes in the right breast. Finding 2: There is a focal asymmetry in the anterior depth upper outer quadrant of the left breast. Finding 3: There are grouped punctate calcifications in the left breast. IMPRESSION IMPRESSION: Finding 1: Post-biopsy changes in the right breast is benign. Finding 2: Focal asymmetry in the upper outer quadrant of the left breast requires additional evaluation. Diagnostic ultrasound is recommended. Finding 3: Calcifications in the left breast require additional evaluation. Diagnostic mammogram is recommended. BI-RADS Category 0: Incomplete: Needs Additional Imaging Evaluation RISK: Based on the Tyrer-Cuzick (TC) risk assessment model, this patient has a 10.8% lifetime risk of developing breast cancer, meaning they are at average risk for developing breast cancer. However, this is only an estimate based on available history provided on the patient's questionnaire. We encourage all patients to talk with their providers about these results, further recommendations for managing breast health, and appropriate supplemental screening options if the patient has dense breast tissue. Interpreting Radiologist: Judy Chew M.D. Electronically signed on: 10/22/2024 Tape Cutter: UMU Transcribe Date/Time: Oct 22 2024 2:27P Dictated by: JUDY CHEW MD This examination was interpreted and the report reviewed and electronically signed by: JUDY CHEW MD on Oct 22 2024 3:49PM [facility] Radiology Study observation (narrative) [facility] DBT Breast - bilateral scree ningOrdered By: [facility] Provider on 10-22-2024 [facility] LOUANN SCREENING W TOMOon 10-22 [facility] SCREENING W MARIANNE * * *Final Report* * * DATE OF EXAM: Oct 22 2024 3:36PM [facility] 0582 - [facility] SCREENING W MARIANNE / PROCEDURE REASON: Encounter for screening mammogram for breast cancer * * * * Physician Interpretation * * * * RESULT: [facility] [address] [place] [address] #[id number] - [facility] SCREENING W MARIANNE HISTORY: Patient is 44 years old and is seen for screening and is asymptomatic in both breasts. Patient states no personal history of breast cancer. Patient states no personal history of other cancers. COMPARISON STUDIES: The present examination has been compared to prior imaging studies dated 07/17/2018 (mammogram), 10/23/2023 (ultrasound), 11/23/2023 (ultrasound), 11/23/2023 (mammogram) and 01/07/2024 (MRI). MAMMOGRAM TECHNIQUE: The study was acquired using full field digital technology and interpreted from soft copy. Digital Breast Tomosynthesis (DBT) images were obtained and used to assist in the interpretation of this examination. Computer-aided detection was utilized by the radiologist in the interpretation of this examination. MAMMOGRAM FINDINGS: The breasts are extremely dense, which lowers the sensitivity of mammography. Finding 1: There are post-biopsy changes in the right breast. Finding 2: There is a focal asymmetry in the anterior depth upper outer quadrant of the left breast. Finding 3: There are grouped punctate calcifications in the left breast. IMPRESSION: Finding 1: Post-biopsy changes in the right breast is benign. Finding 2: Focal asymmetry in the upper outer quadrant of the left breast requires additional evaluation. Diagnostic ultrasound is recommended. Finding 3: Calcifications in the left breast require additional evaluation. Diagnostic mammogram is recommended. BI-RADS Category 0: Incomplete: Needs Additional Imaging Evaluation RISK: Based on the Tyrer-Cuzick (TC) risk assessment model, this patient has a 10.8% lifetime risk of developing breast cancer, meaning they are at average risk for developing breast cancer. However, this is only an estimate based on available history provided on the patient's questionnaire. We encourage all patients to talk with their providers about these results, further recommendations for managing breast health, and appropriate supplemental screening options if the patient has dense breast tissue. Interpreting Radiologist: Judy Chew M.D. Electronically signed on: 10/22/2024 Tape Cutter: UMU Transcribe Date/Time: Oct 22 2024 2:27P Dictated by: JUDY CHEW MD This examination was interpreted and the report reviewed and electronically signed by: JUDY CHEW MD on Oct 22 2024 3:49PM EST [id number] Normal [facility] 10-09-2024 CNPN Telephone (OBGYWM) JAYCEE REED ([id number]) 1980 F Date Time Provider Department 10/09/24 AURELIA BORGES During your visit today, we recorded the following information about you: Rober Urrutia RN 10/09/2024 8:19 AM Signed Pt notified. Rober Urrutia RN Allergies As of Date: 10/09/2024 Noted Allergy Reaction CODEINE 10/01/2008 2 - Rash LATEX 02/13/2023 2 - Rash NICKEL 11/07/2011 2 - Rash Date Reviewed: 10/08/2024 Reviewed by: Aurelia Borges APRN.[employer]BS - Fully Assessed Reason for Visit: Results [95] Primary Visit Diagnosis:Yeast vaginitis [B37.31] Order(s):fluconazole (DIFLUCAN) 150 mg tabletTake 1 tablet by mouth one time only for 1 dose.Disp: 1 tabletRfl: 0 Prescriptions as of 10/09/2024 - fluconazole (DIFLUCAN) 150 mg tablet Take 1 tablet by mouth one time only for 1 dose. - amoxicillin-clavulana te potassium (AUGMENTIN) 875-125 mg per tablet Take 1 tablet by mouth two times a day. - Lactobacillus acidophilus (FLORAJEN ACIDOPHILUS) 20 billion cell capsule Take 1 capsule by mouth once daily. - fluticasone (FLONASE) 50 mcg/actuation nasal spray Use 2 Sprays in each nostril once daily. - MEDICATION, NON-DATABASE 2 capsules once daily. BIO CLEANSE SUPPLEMENT WITH MAGNESIUM Problem List As Of Date 10/09/2024 Noted Resolved Calculus of ureter [N20.1] 10/01/2008 11/10/2011 Vaginal irritation [N89.8] 11/07/2011 11/25/2011 Chronic vulvovaginitis [N76.1] 11/25/2011 11/25/2011 Vulvar irritation [N90.89] 11/25/2011 01/10/2013 BV (bacterial vaginosis) [N76.0, B96.89] 12/29/2011 03/26/2012 Leukorrhea, not specified as infective [N89.8] 03/18/2012 01/10/2013 Unspecified inflammatory disease of female pelv*03/18/2012 03/26/2012 Vaginitis and vulvovaginitis, unspecified [N76.*03/18/2012 01/10/2013 Unspecified symptom associated with female zac*03/18/2012 03/26/2012 Chronic vaginitis [N76.1] 01/10/2013 02/05/2015 Pelvic pain in female [R10.2] 03/07/2013 02/05/2015 Support system deficit [Z65.8] 06/02/2014 02/05/2015 with adoption planned [Z34.90] 06/02/2014 10/23/2014 History of kidney stones [Z87.442] 06/02/2014 02/05/2015 History of hypoglycemia [Z86.39] 06/02/2014 02/05/2015 Constipation [K59.00] 06/02/2014 SUPRV HIGH-RISK PREG NOS [V23.9] [O09.90] 09/24/2014 02/05/2015 IUGR (intrauterine growth restriction) [HEV4686]09/24/2014 02/05/2015 CMV (cytomegalovirus) antibody positive [R76.8] 12/30/2014 02/05/2015 Pre-op testing [Z01.818] 01/15/2024 Prescriptions ordered this encounter Disp Refills Start End FLUCONAZOLE 150 MG TABLET 1 ta* 0 10/09/2024 10/09/2024 Route: ORAL Sig: Take 1 tablet by mouth one time only for 1 dose. Encounter Status:Closed by ROBER URRUTIA on 10/09/24 Normal [facility] BACTERIAL VAGINOSIS NAATon 1 12-08-2023 Lactobacillus crispatus+gasseri+jense mat + Gardnerella vaginalis + Atopobium vaginae rRNA LUIS+probe Ql (Vag fld) Not detected Normal Not detected [facility] Comment on above: Order Comment: Speci men Type: SWABOrdering Facility: [facility] Address: [address] [place] [address] Performed By: #### C VTV, BVAMP ####[facility] LABCLIA [id number] [place] [address] [place] STACI/TRICHOMONAS NAATon 1 12-08-2023 C. glabrata RNA LUIS+probe Ql (Vag fld) Not detected Normal Not detected [facility] Comment on above: Order Comment: Speci men Type: SWABOrdering Facility: [facility] Address: [address] [place] [address] Performed By: #### C VTV, BVAMP ####[facility] LABCLIA [id number] [place] [address] [place] Staci sp DNA LUIS+probe Ql (Vag fld) Detected Abnormal Not detected [facility] Comment on above: Order Comment: Speci men Type: SWABOrdering Facility: [facility] Address: [address] [place] [address] Result Comment: The Staci species group target includes C. albicans, C. tropicalis, C. parapsilosis, and C. dubliniensis. Performed By: #### C VTV, BVAMP ####[facility] LABCLIA [id number] [place] [address] [place] T. vaginalis DNA LUIS+probe Ql (Unsp spec) Not detected Normal Not detected [facility] Comment on above: Order Comment: Speci men Type: SWABOrdering Facility: [facility] Address: [address] [place] [address] Performed By: #### C VTV, BVAMP ####[facility] LABCLIA [id number] LIAHo HARDYDESJasson [id number] [place] [address] [place] CNOVon 10-08-2024 CNOV Office Visit (OBGYWM ) JAYCEE REED ([id number]) 1980 F Date Time Provider Department 10/08/24 2:45 PM AURELIA BORGES OBGYWM During your visit today, we recorded the following information about you: Blood pressure Weight Height Last Period 56.6 kg 1.638 m 09/23/24 Aurelia Borges APRN.SOLDERER BARREL RIBS 10/08/2024 3:13 PM Signed Ecotherapist offered: Patient declinesJonathan Rooney is a 44 year old who presents for an annual gynecologic exam with complaints, vaginal irritation . She recently took an antibiotic for pneumonia. Menses: cycles monthly, lasting 4-5 days. One episode of bleeding between cycles. Contraception: tubal sterilization HPV vaccine: No Last Pap: 10/02/2023 normal HPV: 09/26/2023 negative History of abnormal pap: Yes, follow up normal Last mammogram: 2023 abnormal, breast biopsy and excision Sexually active: Yes Patient concerns for STD exposure: No. Pain with intercourse: No Postcoital bleeding: No OB History T1 L2 SAB1 IAB0 Ectopic0 Multiple0 Live Births2 Respiratory Coordinator History LMP: 09/23/2024 (Approximate), Having periods Age at Menarche: Age at First : Age at Menopause: Respiratory Coordinator History Comments: Sexual Activity: Yes; Male Contraception: Tubal Ligation PAST MEDICAL HISTORY Diagnosis Date Constipation Hypoglycemia Hypotension Kidney stones 11/19/2007 PAST SURGICAL HISTORY Procedure Laterality Date BX OF BREAST; INCISIONAL Right 01/21/2024 DILATION AND CURETTAGE DXAND/THER NONOBSTETRIC 2008 SAB PAST SURGICAL HISTORY OF 2012 wisdom teeth ext TONSILLECTOMY PRIMARY/SECONDARY Tonsillectomy TUBAL LIGATION HX 03/22/2017 LAPAROSCOPIC LIGATION TUBAL FILSHIE CLIPS FAMILY HISTORY Problem Relation Age of Onset No Known Problems Mother other (arthiritis) Father No Known Problems Sister other (heart murmer) Brother Heart Brother Cancer Maternal Grandfather 55 stomach Lung Cancer Paternal Grandfather Asthma Son Breast Cancer Paternal cousin 33 first cousin once removed; BRCA2 positive, but inherited from opposite side of family from patient Ovarian cancer Paternal great-grandmother Cervical Cancer Other paternal cousin SOCIAL HISTORY Social History Tobacco Use Smoking status: Former Current packs/day: 0.00 Types: Cigarettes Quit date: 07/20/2009 Years since quittin.2 Smokeless tobacco: Never Vaping Use Vaping status: Never Used Substance Use Topics Alcohol use: Yes Comment: Seldom, NOT WHILE Drug use: No REVIEW OF SYSTEMS Abdomen: + bowel changes with antibiotic use, + chronic constipation Bladder: No dysuria, gross hematuria, urinary frequency, urinary urgency, or incontinence. Breast: No breast lumps, nipple d/c, overlying skin changes, redness or skin retraction. Allergies and current medication updated:Yes SENSITIVE EXAM: The sensitive examination was discussed with the Patient or Patient's Authorized Port Warden. As applicable, any other physician, advance practice provider, medical student, or other health professional student that will be observing or involved in the sensitive examination for educational or training purposes was discussed with the Patient or Authorized Port Warden. The Patient or Authorized Port Warden has agreed to proceed with the sensitive examination. (Sensitive examination includes inspection and/or palpation of the breasts, pelvis, prostate and anorectal regions). EXAM: BP 112/68 Ht 5' 4.5 (1.64m) Wt 124 lb 12.8 oz (56.6kg) LMP 09/23/2024 BMI 21.10 kg/(m2). GENERAL: pleasant, female in no apparent distress HEENT: Normocephalic, atraumatic, mucus membranes moist, and no lesions NECK: Supple, full range of motion, no adenopathy, and thyroid normal DERMATOLOGY: Normal, without lesions, non-icteric, and non-hirsute BREAST: soft, non-tender, symmetric, no dominant mass, normal nipple-areolar complex, no lymphadenopathy, and no nipple discharge + scar tissue noted to right breast CHEST: Normal inspiratory effort ABDOMEN: soft, non-tender, and no masses PELVIC: external genitalia normal, normal Bartholin's glands, urethra, [place]'s glands, no vulvar lesions, no cervical lesions, good vaginal support, + thick white discharge, normal appearing perineal body and perianal region BIMANUAL: uterus normal size, shape and consistency, no adnexal masses, and non-tender RECTOVAGINAL: deferred. NEURO: alert and oriented x3,exam grossly non-focal EXTREMITIES: normal ASSESSMENT/PLAN: 1) Health maintenance: Pap/HPV up to date 2022. Deferred until 2027. Mammogram ordered. Nutrition, exercise and routine health maintenance exams reviewed. Calcium/Vitamin D supplementation information provided. Lipids/glucose: followed by PCP HPV vaccine: interested, literature given 2) Contraception: tubal sterilization. 3) STD screening: Dec (more content not included)... Normal [facility] CNOVon 09-26-2024 CNOV Office Visit (UCWSTR ) JAYCEE REED ([id number]) 1980 F Date Time Provider Department 09/26/24 8:45 AM VERONICA BRASWELL [facility] During your visit today, we recorded the following information about you: Temperature Pulse Respiration Blood pressure 97.9 degrees 79/minute 20/minute 110/72 Weight Last Period 58 kg 09/20/24 Veronica Braswell APRN.SOLDERER BARREL RIBS 09/26/2024 9:21 AM Signed This note was created using NoteWriter. Subjective Jaycee Barth Brianna is a 44 year old female. 44 year old female with no significant PMH presents for illness. 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 No translator/interpreter was used. URI There is no chest tightness, cough, difficulty breathing, frequent throat clearing, hemoptysis, hoarse voice, shortness of breath, sputum production or wheezing. This is a new problem. The current episode started yesterday. The problem occurs constantly. The problem has been unchanged. Associated symptoms include headaches, malaise/fatigue, myalgias, nasal congestion, postnasal drip, rhinorrhea and a sore throat. Pertinent negatives include no appetite change, chest pain, dyspnea on exertion, ear congestion, ear pain, fever, heartburn, orthopnea, PND, sneezing, sweats, trouble swallowing or weight loss. Her symptoms are aggravated by nothing. Her symptoms are alleviated by nothing. She reports no improvement on treatment. There are no known risk factors for lung disease. There is no history of asthma, bronchiectasis, bronchitis, COPD, emphysema or pneumonia. PAST MEDICAL HISTORY Diagnosis Date Constipation Hypoglycemia Hypotension Kidney stones 11/19/2007 PAST SURGICAL HISTORY Procedure Laterality Date BX OF BREAST; INCISIONAL Right 01/21/2024 DILATION AND CURETTAGE DXAND/THER NONOBSTETRIC 2008 SAB PAST SURGICAL HISTORY OF 2011 wisdom teeth ext TONSILLECTOMY PRIMARY/SECONDARY Tonsillectomy TUBAL LIGATION HX 03/22/2017 LAPAROSCOPIC LIGATION TUBAL FILSHIE CLIPS ALLERGIES Codeine, Latex, and Nickel MEDICATIONS fluticasone (FLONASE) 50 mcg/actuation nasal spray Use 2 Sprays in each nostril once daily. Lactobacillus acidophilus (PROBIOTIC) 10 billion cell cap Take by mouth once daily. MEDICATION, NON-DATABASE 2 capsules once daily. BIO CLEANSE SUPPLEMENT WITH MAGNESIUM FAMILY HISTORY Problem Relation Age of Onset No Known Problems Mother other (arthiritis) Father No Known Problems Sister other (heart murmer) Brother Heart Brother Cancer Maternal Grandfather 55 stomach Lung Cancer Paternal Grandfather Asthma Son Breast Cancer Paternal cousin 33 first cousin once removed; BRCA2 positive, but inherited from opposite side of family from patient Ovarian cancer Paternal great-grandmother Cervical Cancer Other paternal cousin Social History Tobacco Use Smoking status: Former Current packs/day: 0.00 Types: Cigarettes Quit date: 07/20/2009 Years since quittin.1 Smokeless tobacco: Never Vaping Use Vaping status: Never Used Substance Use Topics Alcohol use: Yes Comment: Seldom, NOT WHILE Drug use: No Review of Systems Constitutional: Positive for malaise/fatigue. Negative for appetite change, fever and weight loss. HENT: Positive for congestion, postnasal drip, rhinorrhea and sore throat. Negative for ear pain, hoarse voice, sneezing and trouble swallowing. Eyes: Negative for discharge and itching. Respiratory: Negative for apnea, cough, hemoptysis, sputum production, chest tightness, shortness of breath and wheezing. Cardiovascular: Negative for chest pain, dyspnea on exertion and PND. Gastrointestinal: Negative for abdominal pain, diarrhea, heartburn and nausea. Musculoskeletal: Positive for myalgias. Allergic/Immunologic: Positive for environmental allergies. Negative for food allergies and immunocompromised state. Neurological: Positive for headaches. Hematological: Negative for adenopathy. Does not bruise/bleed easily. Psychiatric/Behaviora l: Negative for agitation and behavioral problems. Objective BP 110/72 Pulse 79 Temp 36.6 ?C (97.9 ?F) Resp 20 Wt 58 kg (127 lb 13.9 oz) LMP 09/20/2024 (Exact Date) SpO2 100% BMI 21.95 kg/m? Physical Exam Vitals and nursing note reviewed. Constitutional: General: She is not in acute distress. Appearance: Normal appearance. She is normal weight. She is not ill-appearing, toxic-appearing or diaphoretic. HENT: Head: Normocephalic and atraumatic. Right Ear: Ear canal and external ear normal. Left Ear: Ear canal and external ear normal. Nose: R (more content not included)... Normal [facility] STREP A MOLECULAR (POC)on Procedural Control Valid [facility] Strep A (POCT) Negative Negative [facility] BACTERIAL VAGINOSIS NAATon 0 08-04-2024 Lactobacillus crispatus+gasseri+jense mat + Gardnerella vaginalis + Atopobium vaginae rRNA LUIS+probe Ql (Vag fld) Negative Normal Negative for bacterial vaginosis [facility] Comment on above: Order Comment: Speci men Type: SWABOrdering Facility: [facility] Address: [address] [place] [address] Performed By: #### C VTV, BVAMP ####[facility]CLIA [id number] [place] [address] [place] Bedside Glucoseon 08-04-2024 FINGERSTICK GLU 85 mg/dL Normal 74-106 [facility] Comment on above: Result Comment: HERMES DIAZ OF PATIENT CARE PER NURSING PROTOCOL Performed By: #### L 501.080 #### [facility] [address] [place], [address] C. trachomatis+N. gonorrhoea e DNA LUIS+probe Ql (Unsp spec)on 08-04-2024 C. trachomatis rRNA LUIS+probe Ql (Unsp spec) Negative Normal Negative for Chlamydia trachomatis by amplificaton [facility] Comment on above: Order Comment: Speci men Type: SWABOrdering Facility: [facility] Address: [address] [place] [address] Performed By: #### 3 6902-5 ####[facility]CLIA [id number] [place] [address] [place] N. gonorrhoeae rRNA LUIS+probe Ql (Unsp spec) Negative Normal Negative for Neisseria gonorrhoeae by amplification [facility] Comment on above: Order Comment: Speci men Type: SWABOrdering Facility: [facility] Address: [address] [place] [address] Performed By: #### 3 6902-5 ####[facility]CL[facility] [id number] [place] [id number] [place] STACI/TRICHOMONAS NAATon 0 08-04-2024 C. glabrata RNA LUIS+probe Ql (Vag fld) Negative Normal Negative for Staci glabrata [facility] Comment on above: Order Comment: Speci men Type: SWABOrdering Facility: [facility] Address: [address] [place] [address] Performed By: #### C VTV, BVAMP ####[facility] [id number] [place] [address] [place] Staci sp DNA LUIS+probe Ql (Vag fld) Negative Normal Negative for Staci species [facility] Comment on above: Order Comment: Speci men Type: SWABOrdering Facility: [facility] Address: [address] [place] [address] Performed By: #### C VTV, BVAMP ####[facility]CLIA [id number] [place] [address] [place] T. vaginalis DNA LUIS+probe Ql (Unsp spec) Negative Normal Negative for Trichomonas vaginalis by amplification [facility] Comment on above: Order Comment: Speci men Type: SWABOrdering Facility: [facility] Address: [address] [place] [address] Performed By: #### C VTV, BVAMP ####[facility]CL[facility] [id number] [place] [address] [place] CBC W/Diff, Automatedon 09-11 24-2023 Absolute Lymph 1.48 X10 3/uL Normal 0.83-4.51 [facility] Comment on above: Performed By: #### L 100.0100, L700.6800 #### [facility] [address] [place], [address] Absolute Neut 1.4 X10 3/uL Low 2.0-7.7 [facility] Comment on above: Performed By: #### L 100.0100, L700.6800 #### [facility] [address] [place], [address] Basophils/100 WBC (Bld) 0.6 % Normal 0-1 [facility] Comment on above: Performed By: #### L 100.0100, L700.6800 #### [facility] [address] [place], [address] Eosinophils/100 WBC (Bld) 1.8 % Normal 0-5 [facility] Comment on above: Performed By: #### L 100.0100, L700.6800 #### [facility] [address] [place], [address] Erythrocyte distribution width (RBC) [Ratio] 12.9 % Normal 11.6-14.6 [facility] Comment on above: Performed By: #### L 100.0100, L700.6800 #### [facility] [address] [place], [address] Hematocrit (Bld) [Volume fraction] 39.7 % Normal 37-47 [facility] Comment on above: Performed By: #### L 100.0100, L700.6800 #### [facility] [address] [place], [address] Hemoglobin (Bld) [Mass/Vol] 13.8 g/dL Normal 12.0-15.0 [facility] Comment on above: Performed By: #### L 100.0100, L700.6800 #### [facility] [address] [place], [address] IG% 0.600 Normal 0.0-0.9 [facility] Comment on above: Result Comment: IG% - Immature Granulocytes (promyelocytes, myelocytes and metamyelocytes) > 1% indicates that a LEFT SHIFT is Present. Performed By: #### L 100.0100, L700.6800 #### [facility] [address] [place], [address] Lymphocytes/100 WBC (Bld) 45.1 % High 19-41 [facility] Comment on above: Performed By: #### L 100.0100, L700.6800 #### [facility] [address] [place], [address] MCH (RBC) [Entitic mass] 33.2 pg High 27.0-32.0 [facility] Comment on above: Performed By: #### L 100.0100, L700.6800 #### [facility] [address] [place], [address] MCHC (RBC) [Mass/Vol] 34.8 g/dL Normal 32-36 [facility] Comment on above: Performed By: #### L 100.0100, L700.6800 #### [facility] [address] [place], [address] MCV (RBC) [Entitic vol] 95.4 fL Normal 81-99 [facility] Comment on above: Performed By: #### L 100.0100, L700.6800 #### [facility] [address] [place], [address] Monocytes/100 WBC (Bld) 10.7 % High 0-10 [facility] Comment on above: Performed By: #### L 100.0100, L700.6800 #### [facility] [address] [place], [address] Neutrophils/100 WBC (Bld) 41.2 % Low 47-70 [facility] Comment on above: Performed By: #### L 100.0100, L700.6800 #### [facility] [address] [place], [address] Nucleated RBC (Bld) [#/Vol] 0 10*3/uL Normal 0-5 [facility] Comment on above: Performed By: #### L 100.0100, L700.6800 #### [facility] [address] [place], [address] Platelet mean volume (Bld) [Entitic vol] 8.5 fL Normal 6.2-12.0 [facility] Comment on above: Performed By: #### L 100.0100, L700.6800 #### [facility] [address] [place], [address] Platelets (Bld) [#/Vol] 212 10*3/uL Normal 150-450 [facility] Comment on above: Performed By: #### L 100.0100, L700.6800 #### [facility] [address] [place], [address] RBC (Bld) [#/Vol] 4.16 10*6/uL Low 4.2-5.4 [facility] Comment on above: Performed By: #### L 100.0100, L700.6800 #### [facility] [address] [place], [address] RDW SD 45.1 fl High 35.1-43.9 [facility] Comment on above: Performed By: #### L 100.0100, L700.6800 #### [facility] [address] [place], [address] WBC (Bld) [#/Vol] 3.3 10*3/uL Low 4.4-11.0 [facility] Comment on above: Performed By: #### L 100.0100, L700.6800 #### [facility] [address] [place], [address] CNCOon 08-04-2024 CNCO Letter Text Normal [facility] CNOVon 08-04-2024 CNOV Office Visit (OBGYWM ) JAYCEE REED ([id number]) 1980 F Date Time Provider Department 08/04/24 2:00 PM ANURADHA KRISHNAN OBGYWM During your visit today, we recorded the following information about you: Blood pressure Weight 110/60 56.7 kg Anuradha Krishnan APRN.CNP 08/04/2024 2:56 PM Signed Ecotherapist offered: Patient declines. Jaycee Reed is a 44 year old female who presents for unusual vaginal bleeding. HPI: Jaycee presents for unusual vaginal bleeding. She noticed the bleeding last night and was seen in the ER this morning 08/04/2024, they did a pelvic ultrasound. The ER doctor stated that it could be fibroids and to follow up with her doctor. Sunday night she had intercourse and that was painful she states, she is afraid something got irritated or small tears. Last week she was here for a yeast infection and was put on Monistat for three days and she is also unsure if that irritated something as well. Periods regular flow lasting 5 days Bloating x 1 yr Bleeding since last night, not due for a period until the end of the month OB History T1 L2 SAB1 IAB0 Ectopic0 Multiple0 Live Births2 Respiratory Coordinator History LMP: 07/19/2024 (Approximate), Having periods Age at Menarche: Age at First : Age at Menopause: Respiratory Coordinator History Comments: Sexual Activity: Yes; Male Contraception: Tubal Ligation PAST MEDICAL HISTORY Diagnosis Date Constipation Hypoglycemia Hypotension Kidney stones 11/19/2007 PAST SURGICAL HISTORY Procedure Laterality Date BX OF BREAST; INCISIONAL Right 01/21/2024 DILATION AND CURETTAGE DXAND/THER NONOBSTETRIC 2008 SAB PAST SURGICAL HISTORY OF 2011 wisdom teeth ext TONSILLECTOMY PRIMARY/SECONDARY Tonsillectomy TUBAL LIGATION HX 03/22/2017 LAPAROSCOPIC LIGATION TUBAL FILSHIE CLIPS FAMILY HISTORY Problem Relation Age of Onset No Known Problems Mother other (arthiritis) Father No Known Problems Sister other (heart murmer) Brother Heart Brother Cancer Maternal Grandfather 55 stomach Lung Cancer Paternal Grandfather Asthma Son Breast Cancer Paternal cousin 33 first cousin once removed; BRCA2 positive, but inherited from opposite side of family from patient Ovarian cancer Paternal great-grandmother Cervical Cancer Other paternal cousin Social History Tobacco Use Smoking status: Former Current packs/day: 0.00 Types: Cigarettes Quit date: 07/20/2009 Years since quittin.0 Smokeless tobacco: Never Vaping Use Vaping status: Never Used Substance Use Topics Alcohol use: Yes Comment: Seldom, NOT WHILE Drug use: No Current Outpatient Medications Medication Sig fluticasone (FLONASE) 50 mcg/actuation nasal spray Use 2 Sprays in each nostril once daily. Lactobacillus acidophilus (PROBIOTIC) 10 billion cell cap Take by mouth once daily. MEDICATION, NON-DATABASE 2 capsules once daily. BIO CLEANSE SUPPLEMENT WITH MAGNESIUM SUDOGEST 60 mg tablet Take 60 mg by mouth. (Patient not taking: Reported on 08/04/2024) L.acidophilus-L.rhamn osus (FLORAJEN WOMEN) 15 billion cell capsule Take 1 capsule by mouth once daily. (Patient not taking: Reported on 07/24/2024) No current facility-administered medications for this visit. Allergies As of Date: 08/04/2024 Allergen Noted Reaction CODEINE 10/01/2008 Rash LATEX 02/13/2023 Rash NICKEL 11/07/2011 Rash Fully Assessed 08/04/2024 REVIEW OF SYSTEMS Abdomen: +bloating, pelvic pain Bladder: No dysuria, gross hematuria, urinary frequency, urinary urgency, or incontinence. Expanded ROS: N/A Allergies and current medication updated:Yes SENSITIVE EXAM: The sensitive examination was discussed with the Patient or Patient's Authorized [place] Warden. As applicable, any other physician, advance practice provider, medical student, or other health professional student that will be observing or involved in the sensitive examination for educational or training purposes was discussed with the Patient or Authorized [place] Warden. The Patient or Authorized [place] Warden has agreed to proceed with the sensitive examination. (Sensitive examination includes inspection and/or palpation of the breasts, pelvis, prostate and anorectal regions). EXAM: BP 110/60 Wt 125 lb (56.7kg) LMP 07/19/2024 GENERAL: pleasant, female in no apparent distress HEENT: Normocephalic, atraumatic, mucus membranes moist, and no lesions CHEST: Normal inspiratory effort ABDOMEN: soft, no masses, and Mild tenderness in suprapubic area PELVIC: external genitalia normal, normal Bartholin's glands, urethra, [place]'s glands, no vulvar lesions, no cervical lesions, good vaginal support, physiologic discharge present, normal appearing perineal body and perianal region BIMANUAL: uterus normal size, shape and consistency, no adnexal masses, and Mild tenderness NEURO: alert and orient (more content not included)... Normal [facility] Emergency Department Summary on 08-04-2024 Emergency Department Summary [facility] Medical Records Department [address] [place] [address] Emergency Department Summary 08/04/24 MR#: [id number] Acct: [id number] Name: JAYCEE REED Rep #: [id number] : 1980 44 From: Norman Wilson MD PCP: Dr. Leia Simons MD Status:REG ER Location: ED HPI HPI - Female History of Present Illness Chief Complaint: Vag Bleeding Detail of Chief Complaint: Vaginal bleeding that started yesterday. Informant: patient Pain Pain: Positive for Pelvic Pain Onset: Yesterday Context: Sudden Onset Timing: Intermittent Quality: Positive for Cramping and Aching Location: - (Pelvic region) Current Severity: Mild Maximum Severity: Mild Worsened by: Movement and [place] Relieved by: Remaining Still and NSAIDS Bleeding Issue: Positive for Vaginal bleeding; Negative for Passing clots or Passing tissue Onset: Yesterday (Spotting last evening had 2 gushes this morning) Context: Sudden Onset Timing: Intermittent Current Severity: Heavy Maximum Severity: Heavy Associated Symptoms Associated Symptoms: Negative for Dysuria, Frequency, Urgency, Hematuria or Missed Period Sexually: Positive for Active Control: BTL (Approximately 9 years ago) Narrative Narrative: Patient is a 44-year-old female. She states her last normal menstrual period was 1.5 weeks ago. She states she is very regular. She is status post bilateral tubal ligation after the of her daughter 9 years ago. She denies orthostatic symptoms. Denies pain referred to her shoulders. She denies back or flank pain. She denies urologic symptoms. She is on no antithrombotic or anticoagulant. She states she had spotting last evening. She had 2 gushes this morning. She is only used 1 pad. There is no history of endometriosis ovarian cyst. Prior similar symptoms: No Recent Illness/Hospitalizati on: No PFSH PFSH Medical History IBS (irritable bowel syndrome) Anxiety Allergy/AdvReac Type Severity Reaction Status Date / Time codeine Allergy Unknown Verified 08/04/24 06:42 Surgical History History of tubal ligation History of tonsillectomy Social History household members: children Smoking Status: Former smoker alcohol intake: current alcohol intake frequency: holidays/special occasions only substance use type: does not use ROS ROS ED Constitutional Constitutional ED: Denies chills, fever(s), subjective or sweats ENT ENT ED: Denies rhinorrhea or sore throat Cardiovascular Cardiovascular: Denies chest pain or palpitations Gastrointestinal Gastrointestinal: Reports abdominal pain; Denies constipation, diarrhea, melena, nausea or vomiting Genitourinary Genitourinary ED: Denies dysuria, hematuria or urinary frequency Musculoskeletal Musculoskeletal: Denies arthralgias, myalgias or neck pain Integumentary Denies rash Hematologic/Lymphatic Hematologic/Lymphatic : Denies easy bleeding or easy bruising EXAM Physical Exam Const Vital Signs: 08/04/24 06:43 08/04/24 09:00 Temperature 97.4 F L Temperature Source Oral Pulse Rate 88 78 Respiratory Rate 16 16 Blood Pressure 119/80 105/78 Blood Pressure Mean 93 87 Pulse Ox 98 98 Oxygen Delivery Method Room Air Room Air Positive well nourished and well developed General Appearance ED: well developed and NAD; Negative for pallor HEENT Reports moist mucous membranes HEENT Narrative: Head is atraumatic no cephalic. Ears normal. Patient has slight exophthalmos's. Eyes PERRL and EOMs intact bilaterally General Eye ED: Negative for pale conjunctiva or scleral icterus Neck no lymphadenopathy, supple and no JVD Resp normal respiratory effort and clear to auscultation bilaterally Cardio regular rate, regular rhythm, S1 normal heart sound, no murmurs and no JVD GI normal to inspection, nondistended, normoactive bowel sounds, soft to palpation, non-tender, non- distended and no masses Back/Spine no CVA tenderness Extremity normal to inspection Neuro oriented x3 and CN's II-XII intact bilaterally Sensorium / Orientation: alert Psych mental status grossly normal Skin no rashes or lesions noted and no wounds General Skin Exam: Negative for jaundice or pallor MDM MDM MDM Narrative Medical decision making narrative: Differential diagnosis would include dysfunctional bleeding, threatened miscarriage, ectopic , gynecologic neoplasm. Will obtain serum , CBC and will need to perform pelvic. CBC to assess white count and H H. Lab Data Attestation: I reviewed the patient's lab results. Lab results narrative: CBC is remarkable for slight lymphocytosis otherwise unremarkable. Serum t (more content not included)... Normal [facility] ,Serum,hCG Quali.on 08-04-2024 HCG, SERUM QUAL Negative Normal [facility] Comment on above: Performed By: #### L 100.0100, L700.6800 #### [facility] [address] [place], [address] Transvaginal Non-on 08-04-2024 Transvaginal Non- [facility] [address] [place] [address] Transvaginal Non- MR#: [id number] Acct: [id number] Name: JAYCEE REED Rep #: [id number] : 1980 F 44 From: Luis Carlos berry MD PCP: Dr. Leia Simons MD Status: [facility] Study: Transvaginal Non- Date of Exam: Exam# [id number] Ordering Dr: Norman Wilson MD [id number] STUDY: ULTRASOUND OF THE FEMALE PELVIS - COMPLETE REASON FOR EXAM: Female, 44 years old. Abnormal vaginal bleeding LMP: July 21, 2024. TECHNIQUE: Transvaginal TECHNICAL QUALITY: Adequate. COMPARISON: Comparison is made with prior study dated November 21, 2023. FINDINGS: The uterus is anteverted and is in a midline position. The uterus measures 8.5 cm x 6.2 cm x 4.6 cm. Normal uterine cervix. The endometrium measures 7.5 mm in thickness, and is hyperechoic. There is no demonstrated endometrial mass. There is a 2.3 cm x 2.1 cm x 1.7 cm uterine fibroid is smaller fibroid is also seen measuring 1.1 cm x 1.1 cm x 0.8 cm. I.U.D. - The patient does not have an I.U.D. The right ovary is visualized. The right ovary measures 2.1 cm x 2.2 cm x 1.2 cm. There is no right ovarian cyst or ovarian mass. There is no visualized right adnexal mass or complex lesion. There is normal arterial and normal venous vascularity. The left ovary is visualized. The left ovary measures 2.4 cm x 2.5 cm x 1.2 cm. There is a 1.5 cm x 1.5 cm x 0.6 cm follicular cyst. There is no visualized left adnexal mass or complex lesion. There is normal arterial and normal venous vascularity. There is minimal fluid in the cul-de-sac. US/Transvaginal Non- IMPRESSION: Heterogeneous appearance of the uterus with 2 fibroids as described. Follicle in the left ovary. Trace amount of free fluid in the cul-de-sac. Electronically Signed: Luis Carlos Boone MD at 10:04 EDT Reading Location ID and State: [facility] / [place] , Service support , CC: Dr. Leia Simons MD; Dr. Norman Wilson MD Tape Cutter: Signed Normal [facility] Hemoglobin A1con 07-29-2024 HbA1c (Bld) [Mass fraction] 4.6 % Normal 3.8-5.6 [facility] Comment on above: Order Comment: Order Date: 07/29/24 Order Info: [id number] - A1C Result Comment: Norm al < 5.7 % Prediabetic 5.7 - 6.4 % Diabetic >or= 6.5 % Please note range changes. Performed By: #### L 501.9985 #### [facility] [address] [place], [address] Lipid Profileon 07-29-2024 Cholesterol [Mass/Vol] 149 mg/dL Normal 200 [facility] Comment on above: Order Comment: Order Date: 07/29/24 Order Info: [id number] - LIPID Result Comment: <200 mg/dL Desirable 200-240 mg/dL Borderline >240 mg/dL High Risk Performed By: #### L 500.4100 #### [facility] [address] [place], [address] Cholesterol in HDL [Mass/Vol] 62 mg/dL Normal [facility] Comment on above: Order Comment: Order Date: 07/29/24 Order Info: [id number] - LIPID Result Comment: The drugs N-Acetylcysteine and Metamizole may falsely depress this assay. Reference Range HDL <40 mg/dL Low HDL Cholesterol HDL >or= 60 mg/dL High HDL Cholesterol Performed By: #### L 500.4100 #### [facility] [address] [place], [address] Cholesterol in LDL [Mass/Vol] 64 mg/dL Normal 0-130 [facility] Comment on above: Order Comment: Order Date: 07/29/24 Order Info: [id number] - LIPID Performed By: #### L 500.4100 #### [facility] [address] [place], [address] Cholesterol in VLDL [Mass/Vol] 23 mg/dL Normal 5-40 [facility] Comment on above: Order Comment: Order Date: 07/29/24 Order Info: [id number] - LIPID Performed By: #### L 500.4100 #### [facility] [address] [place], [address] Triglyceride [Mass/Vol] 115 mg/dL Normal [facility] Comment on above: Order Comment: Order Date: 07/29/24 Order Info: [id number] - LIPID Result Comment: The drugs N-Acetylcysteine and Metamizole may falsely depress this assay. Serum Triglycerides Reference Interval Normal <150 mg/dL Borderline high 150 - 199 mg/dL High 200 - 499 mg/dL Very High > or = 500 mg/dL Performed By: #### L 500.4100 #### [facility] [address] [place], [address] BACTERIAL VAGINOSIS NAATon 0 07-24-2024 Lactobacillus crispatus+gasseri+jense mat + Gardnerella vaginalis + Atopobium vaginae rRNA LUIS+probe Ql (Vag fld) Negative Normal Negative for bacterial vaginosis [facility] Comment on above: Order Comment: Speci men Type: SWABOrdering Facility: [facility] Address: [address] [place] [address] Performed By: #### B VAMP, CVTV ####[facility] [id number] [place] [address] [place] STACI/TRICHOMONAS NAATon 0 07-24-2024 C. glabrata RNA LUIS+probe Ql (Vag fld) Negative Normal Negative for Staci glabrata [facility] Comment on above: Order Comment: Speci men Type: SWABOrdering Facility: [facility] Address: [address] [place] [address] Performed By: #### B VAMP, CVTV ####[facility]CL[facility] [id number] [place] [address] [place] Staci sp DNA LUIS+probe Ql (Vag fld) Positive Abnormal Negative for Staci species [facility] Comment on above: Order Comment: Speci men Type: SWABOrdering Facility: [facility] Address: [address] [place] [address] Performed By: #### B VAMP, CVTV ####[facility] [id number] [place] [address] [place] T. vaginalis DNA LUIS+probe Ql (Unsp spec) Negative Normal Negative for Trichomonas vaginalis by amplification [facility] Comment on above: Order Comment: Speci men Type: SWABOrdering Facility: [facility] Address: [address] [place] [address] Performed By: #### B VAMP, CVTV ####[facility]NO[facility] [id number] [address] OF [facility] CNOVon 07-24-2024 CNOV Office Visit (OBGYWM ) JAYCEE REED ([id number]) 1980 F Date Time Provider Department 07/24/24 1:45 PM LINDA MORELAND OBGYWM During your visit today, we recorded the following information about you: Blood pressure Weight Last Period 122/64 58.5 kg 07/19/24 Linda Moreland APRN.CNM 07/24/2024 2:37 PM Signed Ecotherapist offered: Patient declines. SUBJECTIVE: Jaycee Reed is an 44 year old woman who presents with vaginitis. Symptoms include none, local irritation, and vulvar itching. Onset of symptoms 5 day(s) ago, waxing and waning since. Positive for increased thick vaginal discharge. Concerned that she has a yeast or bacterial infection. Predisposing factors: increased exercise/ bike riding and seat is irritating. Hx of previous vaginitis: rare Sexually active: yes, single partner, No concern for STD Current Outpatient Medications on File Prior to Visit Medication Sig fluticasone (FLONASE) 50 mcg/actuation nasal spray Use 2 Sprays in each nostril once daily. SUDOGEST 60 mg tablet Take 60 mg by mouth. Lactobacillus acidophilus (PROBIOTIC) 10 billion cell cap Take by mouth once daily. MEDICATION, NON-DATABASE 2 capsules once daily. BIO CLEANSE SUPPLEMENT WITH MAGNESIUM L.acidophilus-L.rhamn osus (FLORAJEN WOMEN) 15 billion cell capsule Take 1 capsule by mouth once daily. (Patient not taking: Reported on 07/24/2024) No current facility-administered medications on file prior to visit. ALLERGIES Allergen Reactions Codeine Rash Latex Rash Nickel Rash Social History Tobacco Use Smoking status: Former Current packs/day: 0.00 Types: Cigarettes Quit date: 07/20/2009 Years since quittin.0 Smokeless tobacco: Never Vaping Use Vaping status: Never Used Substance Use Topics Alcohol use: Yes Comment: Seldom, NOT WHILE Drug use: No OBJECTIVE: BP 122/64 Wt 58.5 kg (129 lb) LMP 07/19/2024 (Approximate) BMI 22.14 kg/m? Pelvic: External genitalia Normal, and vagina normal., Bimanual exam normal., Positive findings: vaginal discharge - white and thick ASSESSMENT/PLAN: 1. Vaginal discharge - ICD9: 623.5, ICD10: N89.8 (primary diagnosis) 2. Acute vaginitis - ICD9: 616.10, ICD10: N76.0 - STACI/TRICHOMONAS NAAT - BACTERIAL VAGINOSIS NAAT - Reviewed vulvar hygiene- recommended cotton underwear and changing out of spandex/yoga pants - Continue daily probiotics - Will notify patient of results Linda Moreland APRN.CNM Referring Provider: SELF [[id number]] Allergies As of Date: 07/24/2024 Noted Allergy Reaction CODEINE 10/01/2008 2 - Rash LATEX 02/13/2023 2 - Rash NICKEL 11/07/2011 2 - Rash Date Reviewed: 07/24/2024 Reviewed by: Linda Moreland APRN.CNM - Fully Assessed Reason for Visit: Vaginal Problem [117] Primary Visit Diagnosis:Vaginal discharge [N89.8] Other Visit Diagnosis:Acute vaginitis [N76.0] Order(s):STACI/TRIC HOMONAS NAAT [SQCVTV] Order #: [id number]. #:[id number] BACTERIAL VAGINOSIS NAAT [SQBVAMP] Order #: [id number]. #:[id number] Prescriptions as of 07/25/2024 - fluticasone (FLONASE) 50 mcg/actuation nasal spray Use 2 Sprays in each nostril once daily. - SUDOGEST 60 mg tablet Take 60 mg by mouth. - L.acidophilus-L.rhamn osus (FLORAJEN WOMEN) 15 billion cell capsule Take 1 capsule by mouth once daily. - Lactobacillus acidophilus (PROBIOTIC) 10 billion cell cap Take by mouth once daily. - MEDICATION, NON-DATABASE 2 capsules once daily. BIO CLEANSE SUPPLEMENT WITH MAGNESIUM Problem List As Of Date 07/24/2024 Noted Resolved Calculus of ureter [N20.1] 10/01/2008 11/10/2011 Vaginal irritation [N89.8] 11/07/2011 11/25/2011 Chronic vulvovaginitis [N76.1] 11/25/2011 11/25/2011 Vulvar irritation [N90.89] 11/25/2011 01/10/2013 BV (bacterial vaginosis) [N76.0, B96.89] 12/29/2011 03/26/2012 Leukorrhea, not specified as infective [N89.8] 03/18/2012 01/10/2013 Unspecified inflammatory disease of female pelv*03/18/2012 03/26/2012 Vaginitis and vulvovaginitis, unspecified [N76.*03/18/2012 01/10/2013 Unspecified symptom associated with female zac*03/18/2012 03/26/2012 Chronic vaginitis [N76.1] 01/10/2013 02/05/2015 Pelvic pain in female [R10.2] 03/07/2013 02/05/2015 Support system deficit [Z65.8] 06/02/2014 02/05/2015 with adoption planned [Z34.90] 06/02/2014 10/23/2014 History of kidney stones [Z87.442] 06/02/2014 02/05/2015 History of hypoglycemia [Z86.39] 06/02/2014 02/05/2015 Constipation [K59.00] 06/02/2014 SUPRV HIGH-RISK PREG NOS [V23.9] [O09.90] 09/24/2014 02/05/2015 IUGR (intrauterine growth restriction) [RCF6004]09/24/2014 02/05/2015 CMV (cytomegalovirus) antibody positive [R76.8] 12/30/2014 02/05/2015 Pre-op testing [Z01.818] 01/15/2024 Disposition: Return if symptoms worsen or fail to improve. Follow-up and Disposition History for Encounter Date Provider Department Cent (more content not included)... [facility] BACTERIAL VAGINOSIS NAATon 0 04-29-2024 Lactobacillus crispatus+gasseri+jense mat + Gardnerella vaginalis + Atopobium vaginae rRNA LUIS+probe Ql (Vag fld) Negative Normal Negative for bacterial vaginosis [facility] Comment on above: Order Comment: Speci men Type: SWABOrdering Facility: [facility] Address: [address] [place] [address] Performed By: #### B VAMP, CVTV ####[facility] LABCLIA [id number] [place] [address] [place] STACI/TRICHOMONAS NAATon 0 04-29-2024 C. glabrata RNA LUIS+probe Ql (Vag fld) Negative Normal Negative for Staci glabrata [facility] Comment on above: Order Comment: Speci men Type: SWABOrdering Facility: [facility] Address: [address] [place] [address] Performed By: #### B VAMP, CVTV ####[facility] LABCLIA [id number] [place] [address] [place] Staci sp DNA LUIS+probe Ql (Vag fld) Negative Normal Negative for Staci species [facility] Comment on above: Order Comment: Speci men Type: SWABOrdering Facility: [facility] Address: [address] [place] [address] Performed By: #### B VAMP, CVTV ####[facility] LABCLIA [id number] [place] [address] [place] T. vaginalis DNA LUIS+probe Ql (Unsp spec) Negative Normal Negative for Trichomonas vaginalis by amplification [facility] Comment on above: Order Comment: Speci men Type: SWABOrdering Facility: [facility] Address: [address] [place] [address] Performed By: #### B VAMP, CVTV ####[facility] LABCLIA [id number] [place] [address] [place] CNOVon 04-29-2024 CNOV Office Visit (OBGYWM ) JAYCEE REED ([id number]) 1980 F Date Time Provider Department 04/29/24 11:10 AM NEREYDA RUFFIN OBCHICHI During your visit today, we recorded the following information about you: Blood pressure Weight 114/66 57.2 kg Nereyda Ruffin MD 04/29/2024 11:58 AM Signed Jayceeceferino Reed is a 43 year old female who presents for problem visit vaginal discharge for 2 days. HPI: Recently returned from [place]. Having some irritation and discharge consistent with BV OB History T1 L2 SAB1 IAB0 Ectopic0 Multiple0 Live Births2 Respiratory Coordinator History LMP: 01/05/2024, Having periods Age at Menarche: Age at First : Age at Menopause: Respiratory Coordinator History Comments: Sexual Activity: Yes; Male Contraception: Tubal Ligation PAST MEDICAL HISTORY Diagnosis Date Constipation Hypoglycemia Hypotension Kidney stones 11/19/2007 PAST SURGICAL HISTORY Procedure Laterality Date BX OF BREAST; INCISIONAL Right 01/21/2024 DILATION AND CURETTAGE DXAND/THER NONOBSTETRIC 2008 SAB PAST SURGICAL HISTORY OF 2012 wisdom teeth ext TONSILLECTOMY PRIMARY/SECONDARY Tonsillectomy TUBAL LIGATION HX 03/22/2017 LAPAROSCOPIC LIGATION TUBAL FILSHIE CLIPS FAMILY HISTORY Problem Relation Age of Onset No Known Problems Mother other (arthiritis) Father No Known Problems Sister other (heart murmer) Brother Heart Brother Cancer Maternal Grandfather 55 stomach Lung Cancer Paternal Grandfather Asthma Son Breast Cancer Paternal cousin 33 first cousin once removed; BRCA2 positive, but inherited from opposite side of family from patient Ovarian cancer Paternal great-grandmother Cervical Cancer Other paternal cousin Social History Tobacco Use Smoking status: Former Packs/day: .5 Types: Cigarettes Quit date: 07/20/2009 Years since quittin.7 Smokeless tobacco: Never Vaping Use Vaping Use: Never used Substance Use Topics Alcohol use: Yes Comment: Seldom, NOT WHILE Drug use: No Current Outpatient Medications Medication Sig L.acidophilus-L.rhamn osus (FLORAJEN WOMEN) 15 billion cell capsule Take 1 capsule by mouth once daily. MEDICATION, NON-DATABASE 2 capsules once daily. BIO CLEANSE SUPPLEMENT WITH MAGNESIUM Lactobacillus acidophilus (PROBIOTIC) 10 billion cell cap Take by mouth once daily. (Patient not taking: Reported on 01/30/2024) No current facility-administered medications for this visit. Allergies As of Date: 04/29/2024 Allergen Noted Reaction CODEINE 10/01/2008 Rash LATEX 02/13/2023 Rash NICKEL 11/07/2011 Rash Fully Assessed 04/29/2024 REVIEW OF SYSTEMS Abdomen: No bloating, early satiety, indigestion, or increased flatulence. No abdominal pain, nausea, vomiting, diarrhea, or constipation. Bladder: No dysuria, gross hematuria, urinary frequency, urinary urgency, or incontinence. Breast: No breast lumps, nipple d/c, overlying skin changes, redness or skin retraction. 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: Positive for abnormal vaginal discharge and vaginal itching Allergies and current medication updated:Yes EXAM: BP 114/66 Wt 126 lb (57.2kg) LMP 01/05/2024 GENERAL: pleasant, female in no apparent distress HEENT: Normocephalic, atraumatic, mucus membranes moist, and no lesions NECK: Supple, full range of motion, no adenopathy, and thyroid normal DERMATOLOGY: Normal, without lesions, non-icteric, and non-hirsute BREAST: deferred CHEST: Normal inspiratory effort ABDOMEN: Deferred PELVIC: external genitalia normal, normal Bartholin's glands, urethra, [place]'s glands, no vulvar lesions, no cervical lesions, good vaginal support, physiologic discharge present, normal appearing perineal body and perianal region, scant discharge BIMANUAL: deferred NEURO: alert and oriented x3,exam grossly non-focal EXTREMITIES: normal ASSESSMENT AND PLAN: Encounter Diagnosis ICD-10-CM 1. Vaginal discharge N89.8 BACTERIAL VAGINOSIS NAAT STACI/TRICHOMONAS NAAT Will call with results would rather have natural treatment Nereyda Ruffin MD Allergies As of Date: 04/29/2024 Noted Allergy Reaction CODEINE 10/01/2008 2 - Rash LATEX 02/13/2023 2 - Rash NICKEL 11/07/2011 2 - Rash Date Reviewed: 04/29/2024 Reviewed by: Nereyda Ruffin MD - Fully Assessed Reason for Visit: Vaginal Problem [117] Cmt: Irritation, discharge Primary Visit Diagnosis:Vaginal discharge [N89.8] Order(s):BACTERIAL VAGINOSIS NAAT [SQBVAMP] Order #: [id number]. #:[id number] STACI/TRICHOMONAS NAAT [SQCVTV] Order #: [id number]. #:[id number] Prescriptions as of 04/29/2024 - L.acidophilus-L.rhamn osus (FLORAJEN WOMEN) 15 billion cell capsule Take 1 capsule by mouth once daily. - Lactobacillus acidophilus (PROBIOTIC) 10 billion cell cap Take by mouth once daily. - MEDICATION, NON-DATABASE 2 capsules once daily. BIO CLEANSE SUPPL (more content not included)... Normal [facility] CNOVon 03-06-2024 CNOV Office Visit (AKSHAT ) JAYCEE REED ([id number]) 1980 F Date Time Provider Department 03/06/24 4:30 PM VERONICA CLAROS During your visit today, we recorded the following information about you: Veronica Claros PA-C 03/06/2024 4:05 PM Signed 1. Stay hydrated by drinking at least 8 glasses of water per day. This will help to keep your bowel habits more regular. 2. Continue taking your bowel regimen as prescribed/ discuss with Dr. Wells a good bowel regimen 3.Try using a squatty potty or foot stool under your feet with bowel movements to promote relaxation of your pelvic floor. 4. Enemas or suppositories may help to stimulate your bowels to evacuate. If this is successful then it can be repeated daily. 5. Pelvic floor physical therapy. The goal of this therapy is to retrain the pelvic floor muscles to more appropriately relax and therefore improve evacuation of stool. Physical therapy is the most effective way to get the pelvic floor muscles moving and coordinating correctly. Pelvic floor PT was ordered today, reviewed scheduling process with patient and how to find local therapists. 6. There are no surgical options to improve pelvic muscle coordination. 7. Pelvic floor dysfunction handout reviewed and provided to patient. 8. Patient was instructed to follow up virtual visit in 3 months after completion of physical therapy and adherence to suggested bowel regimen. 9. Follow up with your referring physician. A copy of your test results will be sent to this physician. Pelvic Floor Physical Therapy has been ordered for you. To make an appointment through [facility] call : [phone] If you are not close to a [facility] location, you can visit any one of these sites. Just put your zip code in and Pelvic Floor Physical Therapy places near you will populate. - [email or web address] - [email or web address] - [email or web address] - [email or web address] Veronica Claros PA-C 03/06/2024 4:38 PM Signed PELVIC FLOOR COLON AND RECTAL SURGERY Reason for visit: Review anorectal manometry and EMG results History of Present Illness: Jaycee Reed is a 43 year old FEMALE who was seen at the request of Dr. Wells for anorectal manometry testing, rectal sensation testing and EMG recruitment. Miss Reed was referred for testing due to symptoms of constipation. GI Symptoms: Onset of issues: -since she was a child, unsure if she got enemas or laxative use as a child - Lumpectomy in january made symptoms worse Stool frequency: can go 4 days between bowel movements, won't let herself go more than 2-3 days ( will drink smooth move tea or MoM) Stool type: usually kind of hard unless she takes something Stool straining: no straining Incomplete evacuation: Yes, feels like they are not emptying completely Maneuvers: tries to move around Current bowel regimen:prune juice, magnesium, smooth move tea, plexus biocleanse Use of enemas or suppositories: has used enemas in the past, will give her relief What medications have you tried in the past? : Miralax ( hurt her stomach and made her cramp) Vaginal/perineal pressure: no Abdominal pressure/pain: - lower abdomen - cramping - sometimes sharp - improves when she passes gas or goes to the bathroom - recently more abdominal pain then ever Anorectal pain: no Feelings of prolapse :no Do you have accidental bowel leakage, fecal incontinence, or urgency with bowel movements? no Blood or mucous: sometimes will have mucous Hx of Surgery: lumpectomy in January ,tubal ligation,D AND C Hx of Abuse/trauma, stress: - when she is stressed will make constipation worse - yes, no counseling, traumatic in her 20s feels like she has healed from it Previous PFPT:no GI provider: [facility] Family history: women in her family deal with constipation Does not notice a difference around menstrual cycles Urinary Symptoms: Urinary incontinence: none Urinary frequency: Yes, sometimes, after intimacy Obstetric history: 3 Para 2 Vaginal delivery: 1st baby vaginal, 2nd miscarriage, 3rd vaginal No complications. - Episiotomy: No - Tear: No - Forceps No Previous Testing Results include: Colonoscopy: Yes Date:about 5-6 years ago - normal Manometry: today Defecography: No PAST MEDICAL HISTORY Diagnosis Date Constipation Hypoglycemia Hypotension Kidney stones 11/19/2007 PAST SURGICAL HISTORY Procedure Laterality Date BX OF BREAST; INCISIONAL Right 01/21/2024 DILATION AND CURETTAGE DXAND/THER NONOBSTETRIC 2008 PAST SURGICAL HISTORY OF 2011 wisdom teeth ext TONSILLECTOMY PRIMARY/SECONDARY Tonsillectomy TUBAL LIGATION HX 03/22/2017 LAPAROSCOPIC LIGATION TUBAL FILSHIE CLIPS Current Outpatient Medications Medication Sig Dispense Refill L.acidophilu (more content not included)... Normal [facility] HISTORY PHYSICALon HISTORY PHYSICAL HNO ID: [id number] Author: VERONICA CLAROS PA-C Service: ? Author Type: Physician Saw Grinder Type: H&P Filed: 03/06/2024 16:38 Note Text: PELVIC FLOOR COLON AND RECTAL SURGERY Reason for visit: Review anorectal manometry and EMG results History of Present Illness: Jaycee Reed is a 43 year old FEMALE who was seen at the request of Dr. Wells for anorectal manometry testing, rectal sensation testing and EMG recruitment. Miss Reed was referred for testing due to symptoms of constipation. GI Symptoms: Onset of issues: -since she was a child, unsure if she got enemas or laxative use as a child - Lumpectomy in january made symptoms worse Stool frequency: can go 4 days between bowel movements, won't let herself go more than 2-3 days ( will drink smooth move tea or MoM) Stool type: usually kind of hard unless she takes something Stool straining: no straining Incomplete evacuation: Yes, feels like they are not emptying completely Maneuvers: tries to move around Current bowel regimen:prune juice, magnesium, smooth move tea, plexus biocleanse Use of enemas or suppositories: has used enemas in the past, will give her relief What medications have you tried in the past? : Miralax ( hurt her stomach and made her cramp) Vaginal/perineal pressure: no Abdominal pressure/pain: - lower abdomen - cramping - sometimes sharp - improves when she passes gas or goes to the bathroom - recently more abdominal pain then ever Anorectal pain: no Feelings of prolapse :no Do you have accidental bowel leakage, fecal incontinence, or urgency with bowel movements? no Blood or mucous: sometimes will have mucous Hx of Surgery: lumpectomy in January ,tubal ligation,D AND C Hx of Abuse/trauma, stress: - when she is stressed will make constipation worse - yes, no counseling, traumatic in her 20s feels like she has healed from it Previous PFPT:no GI provider: [facility] Family history: women in her family deal with constipation Does not notice a difference around menstrual cycles Urinary Symptoms: Urinary incontinence: none Urinary frequency: Yes, sometimes, after intimacy Obstetric history: 3 Para 2 Vaginal delivery: 1st baby vaginal, 2nd miscarriage, 3rd vaginal No complications. - Episiotomy: No - Tear: No - Forceps No Previous Testing Results include: Colonoscopy: Yes Date:about 5-6 years ago - normal Manometry: today Defecography: No PAST MEDICAL HISTORY Diagnosis Date Constipation Hypoglycemia Hypotension Kidney stones 11/19/2007 PAST SURGICAL HISTORY Procedure Laterality Date BX OF BREAST; INCISIONAL Right 01/21/2024 DILATION AND CURETTAGE DXAND/THER NONOBSTETRIC 2008 SAB PAST SURGICAL HISTORY OF 2011 wisdom teeth ext TONSILLECTOMY PRIMARY/SECONDARY Tonsillectomy TUBAL LIGATION HX 03/22/2017 LAPAROSCOPIC LIGATION TUBAL FILSHIE CLIPS Current Outpatient Medications Medication Sig Dispense Refill L.acidophilus-L.rhamn osus (FLORAJEN WOMEN) 15 billion cell capsule Take 1 capsule by mouth once daily. 90 capsule 3 Lactobacillus acidophilus (PROBIOTIC) 10 billion cell cap Take by mouth once daily. (Patient not taking: Reported on 01/30/2024) MEDICATION, NON-DATABASE 2 capsules once daily. BIO CLEANSE SUPPLEMENT WITH MAGNESIUM No current facility-administered medications for this visit. ALLERGIES Allergen Reactions Codeine Rash Latex Rash Nickel Rash FAMILY HISTORY Problem Relation Age of Onset No Known Problems Mother other (arthiritis) Father No Known Problems Sister other (heart murmer) Brother Heart Brother Cancer Maternal Grandfather 55 stomach Lung Cancer Paternal Grandfather Asthma Son Breast Cancer Paternal cousin 33 first cousin once removed; BRCA2 positive, but inherited from opposite side of family from patient Ovarian cancer Paternal great-grandmother Cervical Cancer Other paternal cousin Social History Tobacco Use Smoking status: Former Packs/day: .5 Types: Cigarettes Quit date: 07/20/2009 Years since quittin.6 Smokeless tobacco: Never Vaping Use Vaping Use: Never used Substance Use Topics Alcohol use: Yes Comment: Seldom, NOT WHILE Drug use: No Physical Exam: There were no vitals filed for this visit. General Appearance: Well appearing, alert, in no acute distress, well-hydrated, well nourished. Anorectal: Perianal skin is intact. No erythema, induration or excoriation. No fissure, fistula or external hemorrhoids. Digital Rectal Exam: Anus: closed Resting tone: NORMAL Squeeze tone: NORMAL Valsalva: pelvic floor relaxation is Abnormal. Minimal relaxation or movement Puborectalis: non tender in Left anterior, Right anterior, Left posterior, and Right posterior to palpation on valsalva Rectocele: Present Full thickness rectal prolapse: No Assessment Anorectal Physiology tests reviewed at today's visit: Reason for testing: (more content not included)... Normal [facility] CNOVon 01-30-2024 CNOV Office Visit (AGGBRCR) JAYCEE REED ([id number]) 1980 F Date Time Provider Department 01/30/24 3:45 PM MONSE GOVEA AGGBRCR During your visit today, we recorded the following information about you: Pulse Blood pressure Weight Height 73/minute 94/58 54.4 kg 1.626 m Georgina Simons LPN 01/30/2024 3:46 PM Signed Jaycee Barth Brianna is a 43 year old female who presents to follow up for Post Op (RT breast excisional BX) and Results Pt c/o soreness with movement of right breast. Pt denies redness and drainage GENEVIEVE Perez Mary K, MD 01/30/2024 4:04 PM [place] [address] HPI: Ms. Reed is a White 43 year old woman who presents for follow up after right breast excisional biopsy after findings of atypical lobular hyperplasia associated with sclerosing intraductal papilloma on breast image guided biopsy. FAMILY HISTORY Problem Relation Age of Onset No Known Problems Mother other (arthiritis) Father No Known Problems Sister other (heart murmer) Brother Heart Brother Cancer Maternal Grandfather 55 stomach Lung Cancer Paternal Grandfather Asthma Son Breast Cancer Paternal cousin 33 first cousin once removed; BRCA2 positive, but inherited from opposite side of family from patient Ovarian cancer Paternal great-grandmother Cervical Cancer Other paternal cousin PAST MEDICAL HISTORY Diagnosis Date Constipation Hypoglycemia Hypotension Kidney stones 11/19/2007 PAST SURGICAL HISTORY Procedure Laterality Date BX OF BREAST; INCISIONAL Right 01/21/2024 DILATION AND CURETTAGE DXAND/THER NONOBSTETRIC 2008 PAST SURGICAL HISTORY OF 2012 wisdom teeth ext TONSILLECTOMY PRIMARY/SECONDARY Tonsillectomy TUBAL LIGATION HX 03/22/2017 LAPAROSCOPIC LIGATION TUBAL FILSHIE CLIPS Social History Tobacco Use Smoking status: Former Packs/day: .5 Types: Cigarettes Quit date: 07/20/2009 Years since quittin.5 Smokeless tobacco: Never Vaping Use Vaping Use: Never used Substance Use Topics Alcohol use: Yes Comment: Seldom, NOT WHILE Drug use: No No question data found. LAB AND IMAGING RESULTS: FINAL DIAGNOSIS A. Right breast, 10:00, 4 cm from nipple, excisional biopsy: -- Fibrocystic change proliferative type including stromal fibrosis, sclerosing adenosis, microcysts, apocrine metaplasia/cysts and focal usual duct hyperplasia. -- Columnar cell change. -- Fibroadenomatoid change. -- Focal pseudoangiomatous stromal hyperplasia (PASH). -- Focal microcalcifications associated with microcysts, sclerosing adenosis and columnar cell change. B. Right breast, new posterior margin, wire localized excision: -- Sclerosing intraductal papilloma involved by usual duct hyperplasia, see comment. -- Adjacent radial scar. -- Fibrocystic change proliferative type including usual ductal hyperplasia, cysts, apocrine metaplasia and sclerosing adenosis. -- Columnar cell change. -- Focal pseudoangiomatous stromal hyperplasia (PASH). -- Biopsy site change. -- Focal microcalcifications associated with microcysts, sclerosing adenosis and columnar cell change. Review of Systems Constitutional: Negative for chills and fever. PHYSICAL EXAMINATION: BP 94/58 Pulse 73 Ht 162.6 cm (5' 4) Wt 54.4 kg (120 lb) LMP 01/05/2024 BMI 20.60 kg/m? General appearance: Well appearing, alert, in no acute distress Skin: skin color, texture, turgor normal, no suspicious rashes or lesions Eyes: Anicteric sclera, Pupils are equally round and reactive Extremities: No clubbing, cyanosis, or edema. Neuro: Alert and oriented times three Right breast: Her incision is clean dry intact. There is no evidence of infection or hematoma. Physical Exam Plan IMPRESSION / PLAN: Ms. Reed is a White 43 year old woman who presents for follow up after right breast excisional biopsy after findings of atypical lobular hyperplasia associated with sclerosing intraductal papilloma on breast image guided biopsy. Clinical examination reveals no evidence of postoperative complications. Pathologic findings are as follows: FINAL DIAGNOSIS A. Right breast, 10:00, 4 cm from nipple, excisional biopsy: -- Fibrocystic change proliferative type including stromal fibrosis, sclerosing adenosis, microcysts, apocrine metaplasia/cysts and focal usual duct hyperplasia. -- Columnar cell change. -- Fibroadenomatoid change. -- Focal pseudoangiomatous stromal hyperplasia (PASH). -- Focal microcalcifications associated with microcysts, sclerosing adenosis and columnar cell change. B. Right breast, new posterior margin, wire localized excision: -- Sclerosing intraductal papilloma involved by usual duct hyperplasia, see comment. -- Adjacent radial scar. -- Fibrocystic change proliferative (more content not included)... Normal [facility] BACTERIAL VAGINOSIS NAATon 0 01-28-2024 Lactobacillus crispatus+gasseri+jense mat + Gardnerella vaginalis + Atopobium vaginae rRNA LUIS+probe Ql (Vag fld) Negative Negative for bacterial vaginosis [facility] STACI/TRICHOMONAS NAATon 0 01-28-2024 C. glabrata RNA LUIS+probe Ql (Vag fld) Negative Negative for Staci glabrata [facility] Staci sp DNA LUIS+probe Ql (Vag fld) Negative Negative for Staci species [facility] T. vaginalis DNA LUIS+probe Ql (Unsp spec) Negative Negative for Trichomonas vaginalis by amplification [facility] ANES POSTPROC EVALon 024 ANES POSTPROC EVAL HNO ID: [id number] Author: MARV RUBALCAVA MD, PhD Service: Anesthesiology Author Type: Anesthesiologist Type: Anesthesia Postprocedure Evaluation Filed: 01/21/2024 17:50 Note Text: POST ANESTHESIA EVALUATION NOTE : 1980 Procedure Summary Date: 01/21/24 Room / Location: [address] OR Anesthesia Start: 811 Anesthesia Stop: 928 Procedures: RIGHT BREAST EXCISIONAL BIOPSY WITH INTRAOPERATIVE ULTRASOUND GUIDED WIRE LOCALIZATION (Right: Breast) DEMOND INTRAOPERATIVE ULTRASOUND GUIDANCE (Right: Breast) Diagnosis: Abnormal findings on diagnostic imaging of breast (Abnormal findings on diagnostic imaging of breast [R92.8]) Surgeons: Monse Govea MD Responsible Provider: Marv Rubalcava MD, PhD Anesthesia Type: general ASA Status: 2 Anesthesia Type: general Airway Type: ETT Last Vitals Vitals Value Taken Time BP 109/80 01/21/24 1046 Temp 36.5 ?C (97.7 ?F) 01/21/24 1046 HR SpO2 85 01/21/24 1119 Resp 16 01/21/24 1119 SpO2 99 % 01/21/24 1119 Post Anesthesia Patient Status Other Remarks: According to report and flowsheet, pt had an uneventful recovery course in PACU.. Anesthesia Observations No Documentation SIGNATURE: Marv Rubalcava MD, PhD PATIENT NAME: Jaycee Reed DATE: January 21, 2024 TIME: 5:49 PM CSN: [id number] [facility] ANES PRE-OPon 01-21-2024 ANES PRE-OP HNO ID: [id number] Author: MARV RUBALCAVA MD, PhD Service: Anesthesiology Author Type: Anesthesiologist Type: Anesthesia Preprocedure Evaluation Filed: 01/21/2024 09:03 Note Text: ANESTHESIOLOGY DAY OF SURGERY NOTE : 1980 Procedure Information Anesthesia Start Date/Time: 01/21/24811 Procedures: RIGHT BREAST EXCISIONAL BIOPSY WITH INTRAOPERATIVE ULTRASOUND GUIDED WIRE LOCALIZATION (Right: Breast) - BREAST ERAS PROTOCOL DEMOND INTRAOPERATIVE ULTRASOUND GUIDANCE (Right: Breast) [place]: [place] Surgeons: Monse Govea MD Estimated body mass index is 20.49 kg/m? as calculated from the following: Height as of 01/15/24: 162.6 cm (5' 4). Weight as of this encounter: 54.2 kg (119 lb 6.4 oz). Most recent hematocrit and potassium results: Hematocrit 41.0 12/11/2023 Potassium 3.6 12/11/2023 Relevant Problems No relevant active problems I - PHYSICAL EVALUATION AIRWAY Patient intubated: No. Tracheostomy tube not present Mallampati: II. TM distance: >3 FB. Neck ROM: full ROM without neurological symptoms. Mouth opening: adequate. Short neck: no. Thick neck: no Microretrognathia/Antonio ronagthia/Recessed Chin: No II - ANESTHESIA PLAN ASA Score: 2 Anesthetic Plan: general Airway type: LMA NPO Status: adequate Beta Melissa Monitoring Plan Monitoring plan: standard ASA. Post Procedure Analgesic Plan Postoperative analgesic plan: parenteral or oral opioids. Informed Consent Anesthetic risks, benefits, alternatives, personnel and consent discussed: yes. Patient / Responsible Alliance Party agrees to proceed: yes Patient / Surrogate agrees to blood products: blood products not planned Potential Anesthesia issues that may suggest increased risk of complications or contraindication to planned procedure: none. Vitals Value Taken Time BP 114/80 01/21/24 0702 Pulse 80 01/21/24 0702 Resp 16 01/21/24701 Temp 36.7 ?C (98.1 ?F) 01/21/24701 SpO2 100 % 01/21/24701 Facility-Administered Medications as of 01/21/2024 Medication Dose Route Frequency - lidocaine 10 mg/mL (1 %) 1-2 mg injection (XYLOCAINE) 0.1-0.2 mL INTRADERMAL PRN - lactated ringers iv infusion 5-30 mL/hr INTRAVENOUS CONTINUOUS - NaCl 0.9% iv flush bag 20 mL INTRAVENOUS PRN - [COMPLETED] acetaminophen 975 mg tab(s) (TYLENOL) 975 mg ORAL Pre-Op Once - [COMPLETED] ceFAZolin iv piggyback 2 g in D5W (iso-osmotic) 100 mL (ANCEF) 2 g INTRAVENOUS Pre-Op Once - [COMPLETED] dronabinol 2.5 mg cap(s) (MARINOL) 2.5 mg ORAL ONCE - BUPivacaine HCl injection (SENSORCAINE) X (OR/PROCEDURE) PRN - water for irrigation irrigation X (OR/PROCEDURE) PRN - NaCl 0.9% irrigation solution X (OR/PROCEDURE) PRN - hydrogen peroxide 3 % X (OR/PROCEDURE) PRN Outpatient Medications as of 01/21/2024 Medication Sig - Lactobacillus acidophilus (PROBIOTIC) 10 billion cell cap Take by mouth once daily. I have interviewed and examined the patient. I have reviewed the medical record and/or the pre-anesthesia evaluation, pertinent labs, and test results. This contains updated information obtained within 48 hours of Surgery/Procedure. SIGNATURE: Marv Rubalcava MD, PhD PATIENT NAME: Jaycee Reed DATE: January 21, 2024 TIME: 9:02 AM CSN: [id number] [facility] BRIEF OP NOTon 01-21-2024 BRIEF OP NOT HNO ID: [id number] Author: MONSE GOVEA MD Service: General Surgery Author Type: Physician Type: Brief Op Note Filed: 01/21/2024 09:20 Note Text: BRIEF OPERATIVE / PROCEDURE NOTE LOG ID: [id number] SURGERY/PROCEDURE DATE: 01/21/2024 INCISION/PROCEDURE START TIME: 8:43 AM INCISION CLOSE/PROCEDURE END TIME: SURGEON(S)/PROCEDURAL IST(S) AND AIRCRAFT LOADMASTER SUPERINTENDENT(S): Surgeon(s) and Role: * Monse Govea MD - Primary Welder Plasma Arc: Twin Hernández SA SURGERY/PROCEDURE(S): right breast excisional biopsy with intraoperative ultrasound guided wire localization ANESTHESIA: General FINDINGS: clip and wire were in the specimen ESTIMATED BLOOD LOSS: 30 cc SPECIMENS: right breast tissue from 10 o'clock 4 cm from the nipple COMPLICATIONS: None CLOSURE TECHNIQUE: Primary PRE-OP/PRE-PROCEDURE DIAGNOSIS: abnormal breast imaging POST-OP/POST-PROCEDUR E DIAGNOSIS: same SIGNATURE: Monse Govea MD PATIENT NAME: Jaycee Reed DATE: January 21, 2024 TIME: 9:[address] [facility] SURGICAL BREAST SPECIMEN RTon 01-21-2024 [facility] SURGICAL BREAST SPECIMEN RT * * *Final Report* * * DATE OF EXAM: Jan 21 2024 9:05AM [place] [id number] - [facility] SURGICAL BREAST SPECIMEN RT / PROCEDURE REASON: BREAST SPECIMEN * * * * Physician Interpretation * * * * #[id number] - [facility] SURGICAL BREAST SPECIMEN RT UNI-PLANAR RADIOGRAPH SPECIMEN IMAGING RIGHT BREAST: 01/21/2024 HISTORY: /Breast specimen radiograph. Correlation is made to exams dated: 01/07/2024 breast MRI - [facility], 11/23/2023 mammogram, 11/23/2023 ultrasound biopsy, 11/23/2023 mammogram, and 11/23/2023 ultrasound - [facility]. A specimen was imaged using uni-planar radiograph specimen imaging for the previous biopsy site located in the right breast upper outer aspect posterior depth. This was described on the previous biopsy report. IMPRESSION: UNI-PLANAR RADIOGRAPH SPECIMEN IMAGING The imaged specimen includes a biopsy clip and the distal portion of the biopsy wire. Follow-up with ACR/NCCN guidelines. Stephen carrizales/penrad:01/22/2024 15:02:31 Radiology Technician(s): Viet Cavanaugh, [facility] Multiple national specialty organizations have released breast cancer screening guidelines for women at average risk for developing breast cancer - guidelines that are based on both evidence and opinion, yet differ on when to start and how often to screen for breast cancer. With representation from Breast Imaging, Internal Medicine, Women's Health, Family Medicine, and Medical/Surgical Oncology, the [facility] has carefully reviewed the data and reached the following consensus: 1) All women should engage in shared decision-making with their providers to decide when to start and how often to screen; 2) All women should have the opportunity to start screening mammography at age 40; 3) For women ages 45-55, we recommend annual screening mammograms; 4) For women ages 55 and over, we support both the transition from an annual to a biennial interval if this aligns more with patient's values and preferences, or continuation with annual screening; 5) All women should discuss with their providers when to stop screening mammograms. Tape Cutter: Flor Transcribe Date/Time: Jan 21 2024 9:05A Dictated by : STEPHEN DOMINGO MD This examination was interpreted and the report reviewed and electronically signed by: STEPHEN DOMINGO MD on Jan 22 2024 3:02PM EST [id number] Normal [facility] OPERATIVE NOon 01-21-2024 OPERATIVE NO HNO ID: [id number] Author: MONSE GOVEA MD Service: General Surgery Author Type: Physician Type: Operative Report Filed: 01/21/2024 11:27 Note Text: [facility] - Operative Report JAYCEE REED : 1980 AGE: 43. SEX: F PATIENT TYPE: A HOSP [facility]: [facility] LOCATION: [facility] ATTENDING PHYSICIAN: Monse Govea MD CSN NUMBER: [id number] DATE OF SURGERY/PROCEDURE: 01/21/2024 INCISION/PROCEDURE START TIME: 8:43 AM INCISION CLOSE/PROCEDURE END TIME: 9:21 AM PREOPERATIVE DIAGNOSIS: Abnormal right breast imaging. POSTOPERATIVE DIAGNOSIS: Abnormal right breast imaging. SURGEON: Monse Govea MD AIRCRAFT LOADMASTER SUPERINTENDENT: Twin Hernández SURGERY/PROCEDURE: Right breast excisional biopsy with intraoperative ultrasound- guided wire localization. ANESTHESIA: General. ESTIMATED BLOOD LOSS: 30 mL. COMPLICATIONS: None. SPECIMENS: Right breast tissue from 10 o'clock 4 cm from nipple. INTRAOPERATIVE FINDINGS: Clip and the wire were in the specimen. 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 Due to the high-risk lesion, recommendations were made for complete excision. The patient agreed. Consent form was signed. Surgery was scheduled. DESCRIPTION OF PROCEDURE: The patient was taken to the operating room and placed supine on operating room table. After adequate general anesthesia was established, the right breast was prepped and draped in standard fashion. The real-time ultrasound was used to guide a 7-inch Cook needle into the lesion of concern located in the upper outer quadrant. An incision was made over the area. It was made in a circumareolar fashion. It was carried down to the skin to subcutaneous tissue. The flaps were raised. It was then excised in its entirety. The wire was pulled into the wound during the excision. It was then passed off the table as a specimen. The new posterior margin was taken as this contained the wire and clip. The main specimen labeled as short superior, long lateral suture. The posterior margin was marked with suture marking new margin. The wound was irrigated. Hemostasis achieved. Intraoperative finding revealed the clip and the wire were in the posterior specimen. A small piece of Gelfoam was placed in the pocket. It was then closed with interrupted 3-0 Vicryl, followed by 4-0 Monocryl in a subcuticular running fashion. Skin glue was applied. The patient was awakened and taken to recovery room in stable condition. Sponge, instrument, and needle counts were correct at the end. Monse Govea MD MKM:[id number] /[id number] Normal [facility] SURGICAL PATHOLOGYon 024 CASE REPORT Normal [facility] Comment on above: Order Comment: Speci men Type: TISSUE SPECIMEN Ordering Facility: [facility] Address: [address] [place] [address] Result Comment: Surg [facility] Pathology Report Case: [id number] Authorizing Provider: Monse Govea MD Collected: 01/21/2024 08:58 AM Ordering Location: [place] [facility] Received: 01/22/2024 10:33 AM Pathologist: Amber Sorenson MD Specimens: A) - BREAST, EXCISION OF LESION, RIGHT, RIGHT BREAST TISSUE FROM 10 O'CLOCK, 4CM FROM NIPPLE OOB 0857 B) - BREAST MARGIN RIGHT, NEW POSTERIOR MARGIN, STITCH MATOS NEW MARGIN OOB 0900 Performed By: #### S #### [facility][1] CLIA [id number] [address] CLINICAL HISTORY Normal [facility] Comment on above: Order Comment: Bassam dunn Type: TISSUE SPECIMEN Ordering Facility: [facility] Address: [address] [place] [address] Result Comment: Pre- op diagnosis: Abnormal findings on diagnostic imaging of breast [R92.8] Performed By: #### S #### [facility] CLIA [id number] [address] DIAGNOSIS COMMENT Part B has been reviewed by Dr. Galen Caro, who concurs with the above findings. Normal [facility] Comment on above: Order Comment: Bassam dunn Type: TISSUE SPECIMEN Ordering Facility: [facility] Address: [address] [place] [address] Performed By: #### S #### [facility][1] CLIA [id number] [address] FINAL DIAGNOSIS Normal [facility] Comment on above: Order Comment: Bassam dunn Type: TISSUE SPECIMEN Ordering Facility: [facility] Address: [address] [place] [address] Result Comment: A. R ight breast, 10:00, 4 cm from nipple, excisional biopsy: -- Fibrocystic change proliferative type including stromal fibrosis, sclerosing adenosis, microcysts, apocrine metaplasia/cysts and focal usual duct hyperplasia. -- Columnar cell change. -- Fibroadenomatoid change. -- Focal pseudoangiomatous stromal hyperplasia (PASH). -- Focal microcalcifications associated with microcysts, sclerosing adenosis and columnar cell change. B. Right breast, new posterior margin, wire localized excision: -- Sclerosing intraductal papilloma involved by usual duct hyperplasia, see comment. -- Adjacent radial scar. -- Fibrocystic change proliferative type including usual ductal hyperplasia, cysts, apocrine metaplasia and sclerosing adenosis. -- Columnar cell change. -- Focal pseudoangiomatous stromal hyperplasia (PASH). -- Biopsy site change. -- Focal microcalcifications associated with microcysts, sclerosing adenosis and columnar cell change. Performed By: #### S #### [facility] CLIA [id number] [address] FINAL PERFORMING LAB Normal [facility] Comment on above: Order Comment: Speci men Type: TISSUE SPECIMEN Ordering Facility: [facility] Address: [address] [place] [address] Result Comment: Diag nostic interpretation performed at [facility], [address] [place] [address] CLIA# [id number] Safety Scientist: Leia Meeks M.D. Performed By: #### S #### [facility][1] CLIA [id number] [address] GROSS DESCRIPTION Normal [facility] Comment on above: Order Comment: Speci men Type: TISSUE SPECIMEN Ordering Facility: [facility] Address: [address] [place] [address] Result Comment: Bernice PACHECO, EXCISION OF LESION, RIGHT Received in formalin labeled as right breast tissue from 10:00, 4 cm from nipple is an oriented partial mastectomy specimen measuring 3.6 (medial-lateral) x 3.3 (superior to inferior) x 1.4 cm (anterior-posterior), weighing 10 g. The specimen is received oriented with a short stitch at the superior margin and long stitch at the lateral margin. It is received previously inked as follows: Superior blue, inferior green, medial orange, lateral red, anterior yellow, and posterior black. Previous x-ray imaging is not present in [facility] for this specimen. The specimen is sectioned from the medial to lateral margin into 9 slices to reveal a rico-pale pink, ill-defined fibrous area from slice #4 through slice #7 measuring 1.1 (medial-lateral) x 1.1 (superior to inferior) x 0.5 cm (anterior-posterior). This area of interest is located 0.5 cm from the anterior margin, 0.5 cm from the posterior margin, 0.7 cm from the inferior margin, 0.8 cm from the superior margin, 1.1 cm from the medial margin, and 1.3 cm from the lateral margin. The remaining cut surfaces are predominantly fibrous. No distinctive biopsy clip is identified. Totally submitted as follows: A1-A4 entire area of interest submitted along the longest linear dimension (medial-lateral) A1 slice 4 inferior, posterior, anterior; A2 slice 5 inferior, anterior, posterior; A3 slice 6 anterior, posterior, inferior, some superior; A4 slice 7 anterior, inferior, superior, some lateral; A5 slice 4 superior; A6 slice 5 superior; A7 slice 6 superior; A8 slice 7 superior; A 9 slice 3 section adjacent to area of interest anterior, posterior, superior, inferior, some medial; A10 slice 8 section adjacent to area of interest superior, inferior, posterior, lateral; A 11 slice 1 medial margin perpendicular sections; A 12 slice 2 superior, inferior, anterior, posterior, some possible medial; A 13-A14 slice 9 lateral margin perpendicular sections. The specimen is removed from the patient at 8:58 AM on 01/21/2024 and placed in formalin at 9:01 AM on 01/21/2024. B. BREAST MARGIN RIGHT Received in formalin labeled as new posterior margin breast margin right is a portion of rico, soft fibroadipose tissue measuring 0.7 x 2.4 x 1.8 cm, weighing 3 g. A needle localization wire is present. The specimen is remarkable for a stitch and previous black ink on 1 aspect, designated as the new margin per the requisition. The opposing aspect is inked blue. Previous x-ray imaging in [facility] reveals an open coil clip. The specimen is sectioned from one end to the opposing end to reveal, fatty cut surfaces with intervening fibrous tissue. Some fibrocystic changes are identified. Totally submitted in 6 cassettes (B3 to include open coil clip site). The specimen is removed from the patient at 9:01 AM on 01/21/2024 and placed in formalin at 9:01 AM on 01/21/2024. Gross examination performed at [facility], [address] [place] [address] CLIA# [id number] RSA January 22, 2024 2:18 PM Performed By: #### S #### [facility] CLIA [id number] [address] [place] MR Breast - bilateral WO and W contrast Kendall 01-07-2024 [facility] Absolute lymphocyte countOrd ered By: Jones Encarnacion on 11-19-2023 Lymphocytes Auto (Unsp spec) [#/Vol] 2.21 10*3/uL 0.83-4.51 [facility] Basophil percentageOrdered B y: Jones Encarnacion on 11-19-2023 Basophil percentage 0 SEEN /hpf 0-5 [facility] Basophils/100 WBC (Bld) 0.3 % 0-1 [facility] Chloride [Moles/Vol] 106 mmol/L 98-107 [facility] Eosinophils/100 WBC (Bld) 1.7 % 0-5 [facility] Glucose [Mass/Vol] 100 mg/dL 74-106 [facility] Comment on above: Fasting Glucose resu lt from 100 to 125 mg/dL suggests IMPAIRED HOMEOSTASIS per A.D.A. criteria. Neutrophils (Bld) [#/Vol] 3.0 10*3/uL 2.0-7.7 [facility] Neutrophils/100 WBC (Bld) 51.2 % 47-70 [facility] Potassium [Moles/Vol] 3.3 mmol/L 3.5-5.1 [facility] Sodium [Moles/Vol] 138 mmol/L 136-145 [facility] WBC (Bld) [#/Vol] 5.8 10*3/uL 4.4-11.0 [facility] Bilirubin Test strip Ql (U)O rdered By: Jones Encarnacion on 11-19-2023 Bilirubin Ql (U) Negative Negative [facility] Blood erythrocytes count (nu mber/volume)Ordered By: Jones Encarnacion on 11-19-2023 RBC (Bld) [#/Vol] 4.36 10*6/uL 4.2-5.4 [facility] Blood hemoglobin measurement (mass/volume)Ordered By: Jones Encarnacion on 11-19-2023 Hemoglobin (Bld) [Mass/Vol] 14.3 g/dL 12.0-15.0 [facility] Blood lymphocytes/100 leukoc ytesOrdered By: Jones Encarnacion on 11-19-2023 Lymphocytes/100 WBC (Bld) 37.9 % 19-41 [facility] Blood monocytes/100 leukocyt esOrdered By: Jones Encarnacion on 11-19-2023 Monocytes/100 WBC (Bld) 8.7 % 0-10 [facility] Blood platelet mean volumeOr dered By: Jones Encarnacion on 11-19-2023 Platelet mean volume (Bld) [Entitic vol] 9.0 fL 6.2-12.0 [facility] Determination of erythrocyte mean corpuscular volume (MCV)Ordered By: Jones Encarnacion on 11-19-2023 MCV (RBC) [Entitic vol] 93.8 fL 81-99 [facility] Hematocrit Auto (Bld) [Volum e fraction]Ordered By: Jones Encarnacion on 11-19-2023 Hematocrit (Bld) [Volume fraction] 40.9 % 37-47 [facility] Ketones Test strip Ql (U)Ord ered By: Jones Encarnacion on 11-19-2023 Ketones Ql (U) Negative Negative [facility] Laboratory - Chemistry and C hemistry - challengeOrdered By: Jones Encarnacion on 11-19-2023 HCG ( test) Ql (U) Negative [facility] Comment on above: Very dilute urine sp ecimens, as indicated by a low specificgravity, may not contain signs and displays sales representative levels of hCG. If is still suspected, a first morning urinespecimen should be collected 48 hours later and tested. CO2 [Moles/Vol] 26.0 mmol/L 21.0-32.0 [facility] Urea nitrogen/Creatinine [Mass ratio] 14.6 mg/mg 10-20 [facility] - Hematology and Cell countsOrdered By: Jones Encarnacion on 11-19-2023 Erythrocyte distribution width (RBC) [Entitic vol] 43.5 fL 35.1-43.9 [facility] Erythrocyte distribution width (RBC) [Ratio] 12.6 % 11.6-14.6 [facility] Immature granulocytes/100 WBC (Bld) 0.200 % 0.0-0.9 [facility] Comment on above: IG% - Immature Granu locytes (promyelocytes, myelocytes and metamyelocytes) > 1% indicates that a LEFT SHIFT is Present. MCH (RBC) [Entitic mass] 32.8 pg 27.0-32.0 [facility] Nucleated RBC/100 WBC (Bld) [Ratio] 0 % 0-5 [facility] MCHC Auto (RBC) [Mass/Vol]Or dered By: Jones Encarnacion on 11-19-2023 MCHC (RBC) [Mass/Vol] 35.0 g/dL 32-36 [facility] Mucus LM Ql (Urine sed)Order ed By: Jones Encarnacion on 11-19-2023 Mucus Ql (Urine sed) 0 SEEN /hpf [facility] Nitrite Test strip Ql (U)Ord ered By: Jones Encarnacion on 11-19-2023 Nitrite Ql (U) Negative Negative [facility] No Panel InformationOrdered By: Jones Encarnacion on 11-19-2023 Estimated Creatinine Clearance Calc 82.68 ml/min [facility] Estimated GFR (MDRD) Amer 108 mL/min >60 [facility] Comment on above: GFR Calc Estimated GFR (MDRD) Non-Af Amer 90 mL/min >60 [facility] Comment on above: Non- GFR Calc Platelets bldOrdered By: Stephen Encarnacion on 11-19-2023 Platelets (Bld) [#/Vol] 248 10*3/uL 150-450 [facility] Protein Test strip Ql (U)Ord ered By: Jones Encarnacion on 11-19-2023 Protein Ql (U) Negative Negative [facility] Serum or plasma calcium manav urement (mass/volume)Ordered By: Jones Encarnacion on 11-19-2023 Calcium [Mass/Vol] 8.8 mg/dL 8.5-10.1 [facility] Serum or plasma creatinine m easurement (mass/volume)Ordered By: Jones Encarnacion on 11-19-2023 Creatinine [Mass/Vol] 0.75 mg/dL 0.55-1.02 [facility] Comment on above: The validity of the calculated GFR & GFRAA in patients over 70 years has not been determined. Clinical correlation is essential. Serum or plasma urea nitroge n measurement (mass/volume)Ordered By: Jones Encarnacion on 11-19-2023 Urea nitrogen [Mass/Vol] 11 mg/dL 7-18 [facility] Squamous epithelial cells de tection in urine sediment by light microscopyOrdered By: Jones Encarnacion on 11-19-2023 Epithelial cells.squamous LM Ql (Urine sed) 0-5 SEEN /hpf 5-10 [facility] Thin prep Papanicolaou smear with manual screeningOrdered By: Jones Encarnacion on 11-19-2023 Thin prep Papanicolaou smear with manual screening 6 5-15 [facility] Urine blood detectionOrdered By: Jones Encarnacion on 11-19-2023 RBC Ql (U) Negative Negative [facility] RBC Ql (U) 0 SEEN /hpf 0-5 [facility] Urine clarityOrdered By: Stephen Encarnacion on 11-19-2023 Clarity (U) Clear Clear [facility] Urine color determinationOrd ered By: Jones Encarnacion on 11-19-2023 Color (U) Straw Yellow [facility] Urine glucose detectionOrder ed By: Jones Encarnacion on 11-19-2023 Glucose Ql (U) Normal mg/dl Normal [facility] Urine leukocyte esterase det ection by dipstickOrdered By: Jones Encarnacion on 11-19-2023 Leukocyte esterase Test strip Ql (U) Negative Negative [facility] Urine pHOrdered By: Jones melara on 11-19-2023 pH (U) 7.0 [pH] 5.0 - 8.0 [facility] Urine sediment bacteria coun t by microscopy (number/high power field)Ordered By: Jones Encarnacion on 11-19-2023 Bacteria LM.HPF (Urine sed) [#/Area] 0 /[HPF] None Seen [facility] Urine specific gravity measu rementOrdered By: Jones Encarnacion on 11-19-2023 Specific gravity (U) [Rel density] 1.010 1.002-1.030 [facility] Urobilinogen Auto test strip Ql (U)Ordered By: Jones Encarnacion on 11-19-2023 Urobilinogen Ql (U) Normal mg/dl Normal [facility] Basophil percentageOrdered B y: Jones Encarnacion on 10-28-2023 Basophil percentage 0 SEEN /hpf 0-5 [facility] Bilirubin Test strip Ql (U)O rdered By: Jones Encarnacion on 10-28-2023 Bilirubin Ql (U) Negative Negative [facility] Ketones Test strip Ql (U)Ord ered By: Jones Encarnacion on 10-28-2023 Ketones Ql (U) 5 mg/dl Negative [facility] Mucus LM Ql (Urine sed)Order ed By: Jones Encarnacion on 10-28-2023 Mucus Ql (Urine sed) 0 SEEN /hpf [facility] Nitrite Test strip Ql (U)Ord ered By: Jones Encarnacion on 10-28-2023 Nitrite Ql (U) Negative Negative [facility] Protein Test strip Ql (U)Ord ered By: Jones Encarnacion on 10-28-2023 Protein Ql (U) Negative Negative [facility] Squamous epithelial cells de tection in urine sediment by light microscopyOrdered By: Jones Encarnacion on 10-28-2023 Epithelial cells.squamous LM Ql (Urine sed) 0-5 SEEN /hpf 5-10 [facility] Urine blood detectionOrdered By: Jones Encarnacion on 10-28-2023 RBC Ql (U) Negative Negative [facility] RBC Ql (U) 0 SEEN /hpf 0-5 [facility] Urine clarityOrdered By: Stephen Encarnacion on 10-28-2023 Clarity (U) Clear Clear [facility] Urine color determinationOrd ered By: Jones Encarnacion on 10-28-2023 Color (U) Yellow Yellow [facility] Urine glucose detectionOrder ed By: Jones Encarnacion on 10-28-2023 Glucose Ql (U) Normal mg/dl Normal [facility] Urine leukocyte esterase det ection by dipstickOrdered By: Jones Encarnacion on 10-28-2023 Leukocyte esterase Test strip Ql (U) Negative Negative [facility] Urine pHOrdered By: Jones melara on 10-28-2023 pH (U) 7.0 [pH] 5.0 - 8.0 [facility] Urine sediment bacteria coun t by microscopy (number/high power field)Ordered By: Jones Encarnacion on 10-28-2023 Bacteria LM.HPF (Urine sed) [#/Area] 0 /[HPF] None Seen [facility] Urine specific gravity measu rementOrdered By: Jones Encarnacion on 10-28-2023 Specific gravity (U) [Rel density] 1.005 1.002-1.030 [facility] Urobilinogen Auto test strip Ql (U)Ordered By: Jones Encarnacion on 10-28-2023 Urobilinogen Ql (U) Normal mg/dl Normal [facility] LOUANN DIAG W MARIANNE Seals 12-0 [facility] No Panel Informationon 10-23 [facility] Absolute lymphocyte countOrd ered By: Leia Simons on 09-28-2023 Lymphocytes Auto (Unsp spec) [#/Vol] 1.44 10*3/uL 0.83-4.51 [facility] Basophil percentageOrdered B y: Leia Simons on 09-28-2023 Basophils/100 WBC (Bld) 0.8 % 0-1 [facility] Bilirubin [Mass/Vol] 1.50 mg/dL 0.20-1.00 [facility] Comment on above: For patients on eltr ombopag therapy, use of Dimension Boyds TBIL is not recommended. Chloride [Moles/Vol] 109 mmol/L 98-107 [facility] Cholesterol [Mass/Vol] 144 mg/dL <200 [facility] Comment on above: <200 mg/dL Desirable 200-240 mg/dL Borderline >240 mg/dL High Risk Eosinophils/100 WBC (Bld) 1.3 % 0-5 [facility] Glucose [Mass/Vol] 74 mg/dL 74-106 [facility] Neutrophils (Bld) [#/Vol] 4.4 10*3/uL 2.0-7.7 [facility] Neutrophils/100 WBC (Bld) 68.5 % 47-70 [facility] Potassium [Moles/Vol] 3.2 mmol/L 3.5-5.1 [facility] Protein [Mass/Vol] 7.3 g/dL 6.4-8.2 [facility] Sodium [Moles/Vol] 141 mmol/L 136-145 [facility] Triglyceride [Mass/Vol] 87 mg/dL <199 [facility] Comment on above: The drugs N-Acetylcy steine and Metamizole may falsely depress this assay.Serum Triglycerides Reference Interval Normal <150 mg/dL Borderline high 150 - 199 mg/dL High 200 - 499 mg/dL Very High > or = 500 mg/dL WBC (Bld) [#/Vol] 6.3 10*3/uL 4.4-11.0 [facility] Blood erythrocytes count (nu mber/volume)Ordered By: Liea Simons on 09-28-2023 RBC (Bld) [#/Vol] 4.77 10*6/uL 4.2-5.4 [facility] Blood hemoglobin measurement (mass/volume)Ordered By: Leia Simons on 09-28-2023 Hemoglobin (Bld) [Mass/Vol] 15.8 g/dL 12.0-15.0 [facility] Blood lymphocytes/100 leukoc ytesOrdered By: Leia Simons on 09-28-2023 Lymphocytes/100 WBC (Bld) 22.7 % 19-41 [facility] Blood monocytes/100 leukocyt esOrdered By: Leia Simons on 09-28-2023 Monocytes/100 WBC (Bld) 6.2 % 0-10 [facility] Blood platelet mean volumeOr dered By: Leia Simons on 09-28-2023 Platelet mean volume (Bld) [Entitic vol] 10.1 fL 6.2-12.0 [facility] Determination of erythrocyte mean corpuscular volume (MCV)Ordered By: Leia Simons on 09-28-2023 MCV (RBC) [Entitic vol] 97.9 fL 81-99 [facility] Hematocrit Auto (Bld) [Volum e fraction]Ordered By: Leia Simons on 09-28-2023 Hematocrit (Bld) [Volume fraction] 46.7 % 37-47 [facility] Laboratory - Chemistry and C hemistry - challengeOrdered By: Leia iSmons on 09-28-2023 ALP [Catalytic activity/Vol] 47 U/L 45-117 [facility] ALT [Catalytic activity/Vol] 17 U/L 13-56 [facility] CO2 [Moles/Vol] 24.0 mmol/L 21.0-32.0 [facility] Globulin (S) [Mass/Vol] 3.4 g/dL 2.2-4.2 [facility] Lipase [Catalytic activity/Vol] 81 U/L 13-75 [facility] Comment on above: Please note:LIPASE r evised reference range effective 23. New Lipase methodology. Expected to produce lower values than the previous assay method. NEW Reference Range: 13 - 75 U/L Magnesium [Mass/Vol] 2.3 mg/dL 1.6-2.6 [facility] Urea nitrogen/Creatinine [Mass ratio] 14.9 mg/mg - [facility] - Hematology and Cell countsOrdered By: Leia Simons on 09-28-2023 Erythrocyte distribution width (RBC) [Entitic vol] 46.1 fL 35.1-43.9 [facility] Erythrocyte distribution width (RBC) [Ratio] 12.8 % 11.6-14.6 [facility] Immature granulocytes/100 WBC (Bld) 0.500 % 0.0-0.9 [facility] Comment on above: IG% - Immature Granu locytes (promyelocytes, myelocytes and metamyelocytes) > 1% indicates that a LEFT SHIFT is Present. MCH (RBC) [Entitic mass] 33.1 pg 27.0-32.0 [facility] Nucleated RBC/100 WBC (Bld) [Ratio] 0 % 0-5 [facility] MCHC Auto (RBC) [Mass/Vol]Or dered By: Leia Simons on 09-28-2023 MCHC (RBC) [Mass/Vol] 33.8 g/dL 32-36 [facility] No Panel InformationOrdered By: Leia Simons on 09-28-2023 Anti-Gliadin IgA Antibody 4 units 0-19 [facility] Comment on above: Negative 0 - 19 Weak Positive 20 - 30 Moderate to Strong Positive >30 Anti-Gliadin IgG Antibody 2 units 0-19 [facility] Comment on above: Negative 0 - 19 Weak Positive 20 - 30 Moderate to Strong Positive >30 Endomysial IgA Antibody Negative Negative [facility] Estimated GFR (MDRD) Amer 111 mL/min >60 [facility] Comment on above: GFR Calc Estimated GFR (MDRD) Non-Af Amer 92 mL/min >60 [facility] Comment on above: Non- GFR Calc Parathyroid Hormone (Intact) 35.9 pg/mL 18.4-80.1 [facility] Thyroid Stimulating Hormone (TSH) 0.85 uIU/mL 0.358-3.74 [facility] Tissue Transglutaminase IgG Ab <2 U/mL 0-5 [facility] Comment on above: Negative 0 - 5 Weak Positive 6 - 9 Positive >9 Platelets bldOrdered By: Angelic Simons on 09-28-2023 Platelets (Bld) [#/Vol] 217 10*3/uL 150-450 [facility] Serum IgA measurement (units /volume)Ordered By: Leia Simons on 09-28-2023 IgA Qn (S) 172 mg/dL 87-352 [facility] Comment on above: Performed at: [place] [id number] Director: Jesse Stockton PhD, Phone: [phone] Serum or plasma albumin manav urement (mass/volume)Ordered By: Leia Simons on 09-28-2023 Albumin [Mass/Vol] 3.9 g/dL 3.2-5.0 [facility] Serum or plasma albumin/glob ulin mass ratioOrdered By: Leia Simons on 09-28-2023 Albumin/Globulin [Mass ratio] 1.1 {ratio} 0.9-2.4 [facility] Serum or plasma calcium manav urement (mass/volume)Ordered By: Leia Simons on 09-28-2023 Calcium [Mass/Vol] 8.9 mg/dL 8.5-10.1 [facility] Serum or plasma cholesterol in HDL measurement (mass/volume)Ordered By: Leia Simons on 09-28-2023 Cholesterol in HDL [Mass/Vol] 62 mg/dL >40 [facility] Comment on above: The drugs N-Acetylcy steine and Metamizole may falsely depress this assay. Reference Range HDL <40 mg/dL Low HDL Cholesterol HDL >or= 60 mg/dL High HDL Cholesterol Serum or plasma cholesterol in VLDL measurement (mass/volume)Ordered By: Leia Simons on 09-28-2023 Cholesterol in VLDL [Mass/Vol] 17 mg/dL 5-40 [facility] Serum or plasma creatinine m easurement (mass/volume)Ordered By: Leia Simons on 09-28-2023 Creatinine [Mass/Vol] 0.74 mg/dL 0.55-1.02 [facility] Comment on above: The validity of the calculated GFR & GFRAA in patients over 70 years has not been determined. Clinical correlation is essential. Serum or plasma low density lipoprotein (LDL) cholesterol measurement (mass/volume)Ordered By: Leia Simons on 09-28-2023 Cholesterol in LDL [Mass/Vol] 65 mg/dL 0-130 [facility] Serum or plasma urea nitroge n measurement (mass/volume)Ordered By: Leia Simons on 09-28-2023 Urea nitrogen [Mass/Vol] 11 mg/dL 7-18 [facility] Serum tissue transglutaminas e IgA antibody assay (units/volume)Ordered By: Leia Simons on 09-28-2023 tTG IgA Qn (S) <2 U/mL 0-3 [facility] Comment on above: Negative 0 - 3 Weak Positive 4 - 10 Positive >10 Tissue Transglutaminase (tTG) has been identified as the endomysial antigen. Studies have demonstr- ated that endomysial IgA antibodies have over 99% specificity for gluten sensitive enteropathy. Thin prep Papanicolaou smear with manual screeningOrdered By: Leia Simons on 09-28-2023 Thin prep Papanicolaou smear with manual screening 12 U/L 15-37 [facility] Thin prep Papanicolaou smear with manual screening 8 5-15 [facility] UA DIP, URINE (POC)on 2022 BILIRUBIN UA (POCT) Negative Negative [facility] CLARITY UA (POCT) Clear [facility] COLOR UA (POCT) Yellow [facility] GLUCOSE UA (POCT) Negative Negative mg/dL [facility] HEMOGLOBIN/BLOOD UA (POCT) Trace-intact Abnormal Negative [facility] KETONE UA (POCT) Negative Negative mg/dL [facility] LEUKOCYTES UA (POCT) Trace Abnormal Negative [facility] NITRITE UA (POCT) Negative Negative [facility] PH UA (POCT) 7.0 4.5 - 8.0 [facility] Protein Ql (U) Negative Negative mg/dL [facility] SPECIFIC GRAVITY UA (POCT) 1.015 1.005 - 1.030 [facility] UROBILINOGEN UA (POCT) 0.2 E.U./dL Normal E.U./ dL [facility] STREP A MOLECULAR (POC)on Procedural Control Valid [facility] Strep A (POCT) Negative Negative [facility] XR HAND GENERAL 3V PA/LAT/OB [facility] - [facility] PA and Latera l and Obliqueon 03-20-2023 IMPRESSION: No acute radiographic abnormalities seen in the left hand. Tape Cutter: GENE Transcribe Date/Time: Mar 20 2023 2:48P Dictated by : LILLY MCKEON MD This examination was interpreted and the report reviewed and electronically signed by: LILLY MCKEON MD on Mar 20 2023 2:58PM [facility] DIVISION OF RADIOLOGY * * *Final Report* * * DATE OF EXAM: Mar 20 2023 2:48PM [id number] [id number] - XR HAND 3V PA/LAT/OBL LT / PROCEDURE REASON: Pain * * * * Physician Interpretation * [...] There is no significant soft tissue swelling. DIVISION OF RADIOLOGY Provider, [facility] - 03/20/2023 * * *Final Report* * * DATE OF EXAM: Mar 20 2023 2:48PM [id number] [id number] - XR HAND 3V PA/LAT/OBL LT / PROCEDURE REASON: Pain * * * * Physician Interpretation * [...] radiographic abnormalities seen in the left hand. Tape Cutter: GENE Transcribe Date/Time: Mar 20 2023 2:48P Dictated by : LILLY MCKEON MD This examination was interpreted and the report reviewed and electronically signed by: LILLY MCKEON MD on Mar 20 2023 2:58PM EST [facility] Radiology Study observation (narrative) [facility] XR Hand - left PA and Latera l and ObliqueOrdered By: [facility] Provider on 03-20-2023 [facility] STREP A MOLECULAR (POC)on Procedural Control Valid [facility] Strep A (POCT) Positive Abnormal Negative [facility] Absolute lymphocyte counton 09-30-2022 Lymphocytes Auto (Unsp spec) [#/Vol] 1.53 10*3/uL 0.83-4.51 [facility] Work Phone: Basophil percentageon 2021 Basophils/100 WBC (Bld) 0.4 % 0-1 [facility] Work Phone: Bilirubin [Mass/Vol] 1.30 mg/dL 0.20-1.00 [facility] Work Phone: Comment on above: For patients on eltr ombopag therapy, use of Dimension Boyds TBIL is not recommended. Chloride [Moles/Vol] 106 mmol/L 98-107 [facility] Work Phone: Eosinophils/100 WBC (Bld) 2.2 % 0-5 [facility] Work Phone: [phone] Glucose [Mass/Vol] 106 mg/dL 74-106 [facility] Work Phone: Comment on above: Fasting Glucose resu lt from 100 to 125 mg/dL suggests IMPAIRED HOMEOSTASIS per A.D.A. criteria. Neutrophils (Bld) [#/Vol] 4.5 10*3/uL 2.0-7.7 [facility] Work Phone: Neutrophils/100 WBC (Bld) 66.4 % 47-70 [facility] Work Phone: Potassium [Moles/Vol] 3.6 mmol/L 3.5-5.1 [facility] Work Phone: Protein [Mass/Vol] 6.9 g/dL 6.4-8.2 [facility] Work Phone: Sodium [Moles/Vol] 138 mmol/L 136-145 [facility] Work Phone: WBC (Bld) [#/Vol] 6.7 10*3/uL 4.4-11.0 [facility] Work Phone: [phone] Blood erythrocytes count (nu mber/volume)on 09-30-2022 RBC (Bld) [#/Vol] 4.30 10*6/uL 4.2-5.4 [facility]: Blood hemoglobin measurement (mass/volume)on 09-30-2022 Hemoglobin (Bld) [Mass/Vol] 14.4 g/dL 12.0-15.0 [facility] Work Phone: Blood lymphocytes/100 leukoc yteson 09-30-2022 Lymphocytes/100 WBC (Bld) 22.7 % 19-41 [facility] Work Phone: Blood monocytes/100 leukocyt eson 09-30-2022 Monocytes/100 WBC (Bld) 7.9 % 0-10 [facility] Work Phone: Blood platelet mean volumeon 09-30-2022 Platelet mean volume (Bld) [Entitic vol] 9.3 fL 6.2-12.0 [facility] Work Phone: Determination of erythrocyte mean corpuscular volume (MCV)on 09-30-2022 MCV (RBC) [Entitic vol] 95.8 fL 81-99 [facility] Work Phone: [phone] Hematocrit Auto (Bld) [Volum e fraction]on 09-30-2022 Hematocrit (Bld) [Volume fraction] 41.2 % 37-47 [facility] Work Phone: Laboratory - Chemistry and C hemistry - challengeon 09-30-2022 ALP [Catalytic activity/Vol] 46 U/L 45-117 [facility] Work Phone: ALT [Catalytic activity/Vol] 18 U/L 13-56 [facility] Work Phone: [phone] CO2 [Moles/Vol] 26.0 mmol/L 21.0-32.0 [facility] Work Phone: Globulin (S) [Mass/Vol] 2.9 g/dL 2.2-4.2 [facility] Work Phone: Urea nitrogen/Creatinine [Mass ratio] 16.2 mg/mg 10-20 [facility] Work Phone: Laboratory - Hematology and Cell countson 09-30-2022 Erythrocyte distribution width (RBC) [Entitic vol] 44.7 fL 35.1-43.9 [facility] Work Phone: Erythrocyte distribution width (RBC) [Ratio] 12.8 % 11.6-14.6 [facility] Work Phone: Immature granulocytes/100 WBC (Bld) 0.400 % 0.0-0.9 [facility] Work Phone: Comment on above: IG% - Immature Granu locytes (promyelocytes, myelocytes and metamyelocytes) > 1% indicates that a LEFT SHIFT is Present. MCH (RBC) [Entitic mass] 33.5 pg 27.0-32.0 [facility] Work Phone: Nucleated RBC/100 WBC (Bld) [Ratio] 0 % 0-5 [facility] Work Phone: MCHC Auto (RBC) [Mass/Vol]on 09-30-2022 MCHC (RBC) [Mass/Vol] 35.0 g/dL 32-36 [facility] Work Phone: No Panel Informationon 09-30 Estimated Creatinine Clearance Calc 78.69 ml/min [facility] Work Phone: Estimated GFR (MDRD) Amer 93 mL/min >60 [facility] Work Phone: Comment on above: GFR Calc Estimated GFR (MDRD) Non-Af Amer 77 mL/min >60 [facility] Work Phone: Comment on above: Non- GFR Calc Platelets bldon 09-30-2022 Platelets (Bld) [#/Vol] 228 10*3/uL 150-450 [facility] Work Phone: Serum or plasma albumin manav urement (mass/volume)on 09-30-2022 Albumin [Mass/Vol] 4.0 g/dL 3.2-5.0 [facility] Work Phone: Serum or plasma albumin/glob ulin mass ratioon 09-30-2022 Albumin/Globulin [Mass ratio] 1.4 {ratio} 0.9-2.4 [facility] Work Phone: Serum or plasma calcium manav urement (mass/volume)on 09-30-2022 Calcium [Mass/Vol] 9.0 mg/dL 8.5-10.1 [facility] Work Phone: Serum or plasma creatinine m easurement (mass/volume)on 09-30-2022 Creatinine [Mass/Vol] 0.86 mg/dL 0.55-1.02 [facility] Work Phone: Comment on above: The validity of the calculated GFR & GFRAA in patients over 70 years has not been determined. Clinical correlation is essential. Serum or plasma urea nitroge n measurement (mass/volume)on 09-30-2022 Urea nitrogen [Mass/Vol] 14 mg/dL 7-18 [facility] Work Phone: Thin prep Papanicolaou smear with manual screeningon 09-30-2022 Thin prep Papanicolaou smear with manual screening 17 U/L 15-37 [facility] Work Phone: Thin prep Papanicolaou smear with manual screening 6 5-15 [facility] Work Phone: BACTERIAL VAGINOSIS AMPLIFIC ATIONon 07-18-2022 Lactobacillus crispatus+gasseri+jense mat + Gardnerella vaginalis + Atopobium vaginae rRNA LUIS+probe Ql (Vag fld) Negative Negative for bacterial vaginosis [facility] STACI / TRICHOMONAS AMPLIF ICATIONon 07-18-2022 C. glabrata RNA LUIS+probe Ql (Vag fld) Negative Negative for Staci glabrata [facility] Staci albicans, C. dubliniensis, C. parapsilosis, and C. tropicalis RNA LUIS+probe Ql (Vag fld) Negative Negative for Staci species [facility] T. vaginalis DNA LUIS+probe Ql (Unsp spec) Negative Negative for Trichomonas vaginalis by amplification [facility] Vital Signs Date Time Vital Sign Value Performing Clinician Facility 02-27-2025 13:54-0400 Body mass index (BMI) [Ratio] 20.79 kg/m2 Nereyda Ruffin MD Work Phone: [facility] 02-27-2025 13:54-0400 Body weight 55.79 kg Nereyda Ruffin MD Work Phone: [facility] 02-27-2025 13:54-0400 Diastolic blood pressure 62 mm[Hg] Nereyda Ruffin MD Work Phone: [facility] 02-27-2025 13:54-0400 Systolic blood pressure 112 mm[Hg] Nereyda Ruffin MD Work Phone: [facility] 10-08-2024 14:46-0500 Body height 163.8 cm Aurelia Borges [employer]OUS [employer] Work Phone: [facility] 10-08-2024 14:46-0500 Body mass index (BMI) [Ratio] 21.09 kg/m2 Aurelia Borges [employer]OUS [employer] Work Phone: [facility] 10-08-2024 14:46-0500 Body weight 56.61 kg Aurelia Borges CONTIN[employer]OUS [employer]OW[employer] Work Phone: [facility] 10-08-2024 14:46-0500 Diastolic blood pressure 68 mm[Hg] Aurelia Haury CONTINUOUS [employer]OW[employer]ER.[employer] Work Phone: [facility] 10-08-2024 14:46-0500 Systolic blood pressure 112 mm[Hg] Aurelia Haury CONTINUOUS [employer]OW[employer] Work Phone: [facility] 09-26-2024 09:01-0500 Body mass index (BMI) [Ratio] 21.95 kg/m2 Veronica Braswell APRN.[employer] Work Phone: [facility] 09-26-2024 09:01-0500 Body temperature 97.9 [degF] Veronica Braswell [employer]OUS [employer] Work Phone: [facility] 09-26-2024 09:01-0500 Body weight 58 kg Veronica Braswell CONTINUOUS [employer]OW[employer] Work Phone: [facility] 09-26-2024 09:01-0500 Diastolic blood pressure 72 mm[Hg] Veronica Braswell CONTINUOUS [employer]OW[employer] Work Phone: [facility] 09-26-2024 09:01-0500 Heart rate 79 /min Veronica Braswell [employer]INUOUS [employer]OW[employer] Work Phone: [facility] 09-26-2024 09:01-0500 Respiratory rate 20 /min Veronica Braswell CONTINUOUS TOWEL [employer]ER.[employer] Work Phone: [facility] 09-26-2024 09:01-0500 SaO2% (BldA) [Mass fraction] 100 % Veronica Braswell CONTINUOUS [employer]OW[employer] Work Phone: [facility] 09-26-2024 09:01-0500 Systolic blood pressure 110 mm[Hg] Veronica Braswell CONTINUOUS TOW[employer]ER.[employer] Work Phone: [facility] 08-04-2024 14:03-0400 Body mass index (BMI) [Ratio] 21.46 kg/m2 Anuradha Vinicius CONTINUOUS [employer] Work Phone: [facility] 08-04-2024 14:03-0400 Body weight 56.7 kg Anuradha [place] CONT[employer]UOUS [employer]OW[employer]ER.[employer] Work Phone: [facility] 08-04-2024 14:03-0400 Diastolic blood pressure 60 mm[Hg] Anuradha Vinicius CONTINUOUS TOWEL [employer]ER.[employer] Work Phone: [facility] 08-04-2024 14:03-0400 Systolic blood pressure 110 mm[Hg] Anuradha [place] CONTINUOUS [employer]OW[employer]ER.[employer] Work Phone: [facility] 07-24-2024 13:47-0400 Body mass index (BMI) [Ratio] 22.14 kg/m2 Linda Moreland CONTINUOUS TOWEL ROLLER.CNM Work Phone: [facility] 07-24-2024 13:47-0400 Body weight 58.51 kg Linda Moreland CONTINUOUS [employer]OW[employer].CNM Work Phone: [facility] 07-24-2024 13:47-0400 Diastolic blood pressure 64 mm[Hg] Linda Moreland CONTINUOUS TOW[employer].CNM Work Phone: [facility] 07-24-2024 13:47-0400 Systolic blood pressure 122 mm[Hg] Linda More[place] CONTINUOUS TOW[employer].CNM Work Phone: [facility] 04-29-2024 11:23-0400 Body mass index (BMI) [Ratio] 21.63 kg/m2 Nereyda Ruffin MD Work Phone: [facility] 04-29-2024 11:23-0400 Body weight 57.15 kg Nereyda Ruffin MD Work Phone: [facility] 04-29-2024 11:23-0400 Diastolic blood pressure 66 mm[Hg] Nereyda Ruffin MD Work Phone: [facility] 04-29-2024 11:23-0400 Systolic blood pressure 114 mm[Hg] Nereyda Ruffin MD Work Phone: [facility] 01-30-2024 15:45-0400 Body height 162.6 cm Monse Govea MD Work Phone: [facility] 01-30-2024 15:45-0400 Body weight 54.43 kg Monse Govea MD Work Phone: [facility] 01-30-2024 15:45-0400 Diastolic blood pressure 58 mm[Hg] Monse Govea MD Work Phone: [facility] 01-30-2024 15:45-0400 Heart rate 73 /min Monse Govea MD Work Phone: [facility] 01-30-2024 15:45-0400 Systolic blood pressure 94 mm[Hg] Monse Govea MD Work Phone: [facility] 01-28-2024 11:18-0400 Body weight 55.34 kg Aurelia Harringtonmarko [employer]AG[employer]ERRE.[employer] Work Phone: [facility] 01-28-2024 11:18-0400 Diastolic blood pressure 60 mm[Hg] Aurelia Borges CONTINUOUS TOWEL [employer]ER.[employer] Work Phone: [facility] 01-28-2024 11:18-0400 Systolic blood pressure 100 mm[Hg] Aurelia Harringtonmarko CONTINUOUS TOWEL [employer]ER.[employer] Work Phone: [facility] 01-15-2024 15:36-0500 Body height 162.6 cm [facility] 2 [facility] 11-20-2023 00:01-0500 Respiratory rate 16 /min [facility] 11-19-2023 23:04-0500 Body temperature 96.7 [degF] [facility] 11-19-2023 23:04-0500 Diastolic blood pressure 74 mm[Hg] [facility] 11-19-2023 23:04-0500 Heart rate 94 /min [facility] 11-19-2023 23:04-0500 SaO2% (BldA) [Mass fraction] 99 % [facility] 11-19-2023 23:04-0500 Systolic blood pressure 116 mm[Hg] [facility] 11-19-2023 23:03-0500 Body height 162.56 cm [facility] 11-19-2023 23:03-0500 Body mass index (BMI) [Ratio] 20.2 kg/m2 [facility] 11-19-2023 23:03-0500 Body weight 53.6 kg [facility] 10-30-2023 15:02-0500 Body height 162.6 cm Suzanne Salinas MD Work Phone: [facility] 10-30-2023 15:02-0500 Body temperature 98.29 [degF] Suzanne Salinas MD Work Phone: [facility] 10-30-2023 15:02-0500 Body weight 54.16 kg Suzanne Salinas MD Work Phone: [facility] 10-30-2023 15:02-0500 Diastolic blood pressure 82 mm[Hg] Suzanne Salinas MD Work Phone: [facility] 10-30-2023 15:02-0500 Heart rate 100 /min Suzanne Salinas MD Work Phone: [facility] 10-30-2023 15:02-0500 SaO2% (BldA) [Mass fraction] 99 % Suzanne Salinas MD Work Phone: [facility] 10-30-2023 15:02-0500 Systolic blood pressure 106 mm[Hg] Suzanne Salinas MD Work Phone: [facility] 10-28-2023 03:30-0500 Body height 162.56 cm [facility] 10-28-2023 03:30-0500 Body mass index (BMI) [Ratio] 20.5 kg/m2 [facility] 10-28-2023 03:30-0500 Body temperature 97.2 [degF] [facility] 10-28-2023 03:30-0500 Body weight 54.4 kg [facility] 10-28-2023 03:30-0500 Diastolic blood pressure 81 mm[Hg] [facility] 10-28-2023 03:30-0500 Heart rate 69 /min [facility] 10-28-2023 03:30-0500 Respiratory rate 16 /min [facility] 10-28-2023 03:30-0500 SaO2% (BldA) [Mass fraction] 99 % [facility] 10-28-2023 03:30-0500 Systolic blood pressure 100 mm[Hg] [facility] 08-09-2023 08:36-0400 Body weight 54.43 kg Ivon Parmar APRN.[employer] Work Phone: [facility] 08-09-2023 08:36-0400 Diastolic blood pressure 60 mm[Hg] Ivon Parmar APRN.[employer] Work Phone: [facility] 08-09-2023 08:36-0400 Systolic blood pressure 96 mm[Hg] Ivon Parmar APRN.[employer] Work Phone: [facility] 06-07-2023 12:40-0400 Body weight 55.34 kg Ivon Parmar APRN.[employer] Work Phone: [facility] 06-07-2023 12:40-0400 Diastolic blood pressure 60 mm[Hg] Ivon Parmar APRN.[employer] Work Phone: [facility] 06-07-2023 12:40-0400 Systolic blood pressure 104 mm[Hg] Ivon Parmar APRN.[employer] Work Phone: [facility] 06-02-2023 09:00-0400 Body weight 54.88 kg Krislyn Aberegg PA Work Phone: [facility] 06-02-2023 09:00-0400 Diastolic blood pressure 52 mm[Hg] Krislyn Aberegg PA Work Phone: [facility] 06-02-2023 09:00-0400 Heart rate 72 /min Krislyn Aberegg PA Work Phone: [facility] 06-02-2023 09:00-0400 Respiratory rate 16 /min Krislyn Aberegg PA Work Phone: [facility] 06-02-2023 09:00-0400 SaO2% (BldA) [Mass fraction] 98 % Krislyn Aberegg PA Work Phone: [facility] 06-02-2023 09:00-0400 Systolic blood pressure 80 mm[Hg] Krislyn Aberegg PA Work Phone: [facility] 05-23-2023 09:50-0400 Body temperature 98.01 [degF] Katherine Mateo CONTINUOUS TOWEL ROLLER.[employer] Work Phone: [facility] 05-23-2023 09:50-0400 Body weight 55.34 kg Katherine Galindo CONTINUOUS TOWEL ROLLER.[employer] Work Phone: [facility] 05-23-2023 09:50-0400 Diastolic blood pressure 66 mm[Hg] Katherine Mateo CONTINUOUS TOWEL ROLLER.[employer] Work Phone: [facility] 05-23-2023 09:50-0400 Heart rate 66 /min Katherine Mateo CONTINUOUS TOWEL ROLLER.[employer] Work Phone: [facility] 05-23-2023 09:50-0400 Respiratory rate 16 /min Katherine Galindo CONTINUOUS TOWEL ROLLER.[employer] Work Phone: [facility] 05-23-2023 09:50-0400 SaO2% (BldA) [Mass fraction] 100 % Katherine Galindo CONTINUOUS TOWEL ROLLER.[employer] Work Phone: [facility] 05-23-2023 09:50-0400 Systolic blood pressure 122 mm[Hg] Katherine Galindo CONTINUOUS TOWEL ROLLER.[employer] Work Phone: [facility] 04-01-2023 08:53-0400 Body temperature 97.9 [degF] Lanie Franco CONTINUOUS TOWEL ROLLER.[employer] Work Phone: [facility] 04-01-2023 08:53-0400 Body weight 55.34 kg Lanie Franco APRN.[employer] Work Phone: [facility] 04-01-2023 08:53-0400 Diastolic blood pressure 70 mm[Hg] Lanie Franco CONTINUOUS TOWEL ROLLER.[employer] Work Phone: [facility] 04-01-2023 08:53-0400 Heart rate 97 /min Lanie Franco APRN.[employer] Work Phone: [facility] 04-01-2023 08:53-0400 Respiratory rate 16 /min Lanie Franco APRN.[employer] Work Phone: [facility] 04-01-2023 08:53-0400 SaO2% (BldA) [Mass fraction] 97 % Lanie Franco APRN.[employer] Work Phone: [facility] 04-01-2023 08:53-0400 Systolic blood pressure 90 mm[Hg] Lanie Franco CONTINUOUS TOWEL ROLLER.[employer] Work Phone: [facility] 03-20-2023 14:08-0400 Body temperature 98.01 [degF] Lanie Franco APRN.[employer] Work Phone: [facility] 03-20-2023 14:08-0400 Body weight 57.15 kg Lanie Franco APRN.[employer] Work Phone: [facility] 03-20-2023 14:08-0400 Diastolic blood pressure 62 mm[Hg] Lanie Franco APRN.[employer] Work Phone: [facility] 03-20-2023 14:08-0400 Heart rate 70 /min Lanie Franco CONTINUOUS TOWEL ROLLER.[employer] Work Phone: [facility] 03-20-2023 14:08-0400 Respiratory rate 16 /min Lanie Franco APRN.[employer] Work Phone: [facility] 03-20-2023 14:08-0400 SaO2% (BldA) [Mass fraction] 98 % Lanie Franco APRN.[employer] Work Phone: [facility] 03-20-2023 14:08-0400 Systolic blood pressure 90 mm[Hg] Lanie Franco APRN.[employer] Work Phone: [facility] 03-13-2023 13:49-0400 Body temperature 98.01 [degF] Sharee Athy PA-C Work Phone: [facility] 03-13-2023 13:49-0400 Body weight 55.79 kg Sharee Athy PA-C Work Phone: [facility] 03-13-2023 13:49-0400 Diastolic blood pressure 62 mm[Hg] Sharee Athy PA-C Work Phone: [facility] 03-13-2023 13:49-0400 Heart rate 92 /min Sharee Athy PA-C Work Phone: [facility] 03-13-2023 13:49-0400 Respiratory rate 16 /min Sharee Athy PA-C Work Phone: [facility] 03-13-2023 13:49-0400 SaO2% (BldA) [Mass fraction] 97 % Sharee Athy PA-C Work Phone: [facility] 03-13-2023 13:49-0400 Systolic blood pressure 90 mm[Hg] Sharee Athy PA-C Work Phone: [facility] 12-27-2022 14:14-0500 Body weight 56.61 kg Linda Plotts CONTINUOUS TOWEL ROLLER.CNM Work Phone: [facility] 12-27-2022 14:14-0500 Diastolic blood pressure 60 mm[Hg] Linda Plotts CONTINUOUS TOWEL ROLLER.CNM Work Phone: [facility] 12-27-2022 14:14-0500 Systolic blood pressure 100 mm[Hg] Linda Plotts CONTINUOUS TOWEL ROLLER.CNM Work Phone: [facility] 12-12-2022 13:57-0500 Body weight 56.25 kg Linda Plotts CONTINUOUS TOWEL ROLLER.CNM Work Phone: [facility] 12-12-2022 13:57-0500 Diastolic blood pressure 60 mm[Hg] Linda Plotts CONTINUOUS TOWEL ROLLER.CNM Work Phone: [facility] 12-12-2022 13:57-0500 Systolic blood pressure 96 mm[Hg] Linda Plotts CONTINUOUS TOWEL ROLLER.CNM Work Phone: [facility] 11-29-2022 14:35-0500 Body weight 56.79 kg Ivon Parmar CONTINUOUS TOWEL ROLLER.[employer] Work Phone: [facility] 11-29-2022 14:35-0500 Diastolic blood pressure 60 mm[Hg] Ivon Wilsonhrie CONTINUOUS TOWEL ROLLER.[employer] Work Phone: [facility] 11-29-2022 14:35-0500 Systolic blood pressure 100 mm[Hg] Ivon Parmar CONTINUOUS TOWEL ROLLER.[employer] Work Phone: [facility] 11-07-2022 13:56-0500 Body weight 56.97 kg Ivon Parmar CONTINUOUS TOWEL ROLLER.[employer] Work Phone: [facility] 11-07-2022 13:56-0500 Diastolic blood pressure 60 mm[Hg] Ivon Parmar CONTINUOUS TOWEL ROLLER.[employer] Work Phone: [facility] 11-07-2022 13:56-0500 Systolic blood pressure 100 mm[Hg] Ivon Parmar CONTINUOUS TOWEL ROLLER.[employer] Work Phone: [facility] 11-04-2022 08:48-0500 Body temperature 98.4 [degF] Veronica Braswell CONTINUOUS TOWEL ROLLER.[employer] Work Phone: [facility] 11-04-2022 08:48-0500 Body weight 56.06 kg Veronica Braswell CONTINUOUS TOWEL ROLLER.[employer] Work Phone: [facility] 11-04-2022 08:48-0500 Diastolic blood pressure 78 mm[Hg] Veronica Braswell CONTINUOUS TOWEL ROLLER.[employer] Work Phone: [facility] 11-04-2022 08:48-0500 Heart rate 102 /min Veronica Braswell CONTINUOUS TOWEL ROLLER.[employer] Work Phone: [facility] 11-04-2022 08:48-0500 Respiratory rate 18 /min Veronica Braswell CONTINUOUS TOWEL ROLLER.[employer] Work Phone: [facility] 11-04-2022 08:48-0500 SaO2% (BldA) [Mass fraction] 98 % Veronica Braswell CONTINUOUS TOWEL ROLLER.[employer] Work Phone: [facility] 11-04-2022 08:48-0500 Systolic blood pressure 106 mm[Hg] Veronica Braswell CONTINUOUS TOWEL ROLLER.[employer] Work Phone: [facility] 09-30-2022 15:33-0500 Respiratory rate 16 /min [facility] Work Phone: 09-30-2022 14:45-0500 Diastolic blood pressure 72 mm[Hg] [facility] Work Phone: 09-30-2022 14:45-0500 Heart rate 76 /min [facility] Work Phone: 09-30-2022 14:45-0500 SaO2% (BldA) [Mass fraction] 100 % [facility] Work Phone: 09-30-2022 14:45-0500 Systolic blood pressure 103 mm[Hg] [facility] Work Phone: 09-30-2022 14:03-0500 Body height 168 cm [facility] Work Phone: 09-30-2022 14:03-0500 Body mass index (BMI) [Ratio] 20.5 kg/m2 [facility] Work Phone: 09-30-2022 14:03-0500 Body temperature 98.1 [degF] [facility] Work Phone: 09-30-2022 14:03-0500 Body weight 57.9 kg [facility] Work Phone: 07-17-2022 15:39-0400 Body weight 57.15 kg Liseth Stevenson MD Work Phone: [facility] 07-17-2022 15:39-0400 Diastolic blood pressure 62 mm[Hg] Liseth Stevenson MD Work Phone: [facility] 07-17-2022 15:39-0400 Systolic blood pressure 118 mm[Hg] Liseth Stevenson MD Work Phone: [facility] Encounters Encounter Date Encounter Type Care Provider Facility Start: 07-23-2025 ambulatory [address]Y [address]AJAS MD [facility] Start: 03-02-2025 End: 05-02-2025 Follow-up encounter Elsi Estevez MD Work Phone: OB/Gynecology Start: 02-27-2025 End: 02-27-2025 ambulatory SELF Facility:[facility] Start: 02-27-2025 End: 02-27-2025 Office outpatient visit 15 minutes Nereyda Ruffin MD Work Phone: OB/Gynecology Comment on above: Vaginal irritation ( Primary Dx); Vaginal discharge; Vaginal itching Start: 02-02-2025 End: 02-02-2025 Telephone encounter Aurelia Borges APRN.[employer] Work Phone: OB/Gynecology Comment on above: Medication Question Start: 01-16-2025 End: 03-18-2025 Follow-up encounter Aurelia Borges APRN.CNP Work Phone: OB/Gynecology Comment on above: Results Start: 01-15-2025 ambulatory MONSE GOVEA Facility: [facility] Start: 01-15-2025 End: 01-15-2025 Subsequent hospital visit by physician Diagnostic Mammo [facility] Comment on above: Abnormal mammogram [ R92.8] Abnormal finding on breast imaging [R92.8] Start: 01-12-2025 End: 01-12-2025 Emergency department patient visit Leia Simons Facility:[facility] Start: 12-28-2024 End: 12-29-2024 Emergency department patient visit Leia Simons Facility:[facility] Start: 12-03-2024 End: 12-03-2024 Telephone encounter Suzanne Salinas MD Work Phone: [facility] Comment on above: Appointment Start: 12-01-2024 End: 12-01-2024 Telephone encounter Aurelia Borges APRN.[employer]ER [employer] Work Phone: OB/Gynecology Comment on above: Results Start: 11-26-2024 End: 11-26-2024 ambulatory LEIA SIMONS Facility:[facility] Start: 11-26-2024 End: 11-26-2024 Subsequent hospital visit by physician Diagnostic Mammo [facility] Comment on above: Abnormal mammogram [ R92.8] Start: 11-26-2024 End: 11-26-2024 Telephone encounter Aurelia Borges APRN.[employer] Work Phone: OB/Gynecology Comment on above: Results Start: 10-24-2024 End: 10-24-2024 Telephone encounter Judy Chew MD Work Phone: Mammography Comment on above: Mammogram Result Melvin l Back Start: 10-22-2024 End: 10-22-2024 ambulatory AURELIA BORGES Facility:[facility] Start: 10-22-2024 End: 10-22-2024 Subsequent hospital visit by physician Screen Mammo [facility] Comment on above: Encounter for screen ing mammogram for breast cancer [Z12.31] Start: 10-22-2024 End: 10-24-2024 Telephone encounter Aurelia Haury CONTINUOUS TOWEL ROLLER.[employer] Work Phone: OB/Gynecology Comment on above: Results Start: 10-09-2024 End: 10-09-2024 Telephone encounter Aurelia Borges APRN.[employer] Work Phone: OB/Gynecology Comment on above: Results Start: 10-08-2024 End: 10-08-2024 [facility] Facility:[facility] Start: 10-08-2024 End: 10-08-2024 Patient encounter procedure Aurelia Borges APRN.[employer] Work Phone: OB/Gynecology Comment on above: Encounter for gyneco logical examination (general) (routine) without abnormal findings (Primary Dx); Encounter for screening mammogram for breast cancer; Vaginal discharge; Vaginal itching Start: 10-08-2024 End: 10-08-2024 Patient encounter status Aurelia Borges APRN.[employer] Work Phone: [facility] Start: 09-26-2024 End: 09-26-2024 [facility] Facility:[facility] Start: 09-26-2024 End: 09-26-2024 Patient encounter procedure Veronica Braswell APRN.[employer]ER [employer] Work Phone: [facility] Comment on above: Pharyngitis, unspeci fied etiology (Primary Dx); Viral illness Start: 08-04-2024 End: 08-04-2024 [facility] Facility:[facility] Start: 08-04-2024 End: 08-04-2024 Patient encounter procedure Anuradha Krishnan APRN.[employer] Work Phone: OB/Gynecology Comment on above: Abnormal uterine ble eding (AUB) (Primary Dx); Pre-procedural laboratory examination; Vaginal irritation Start: 08-04-2024 End: 08-04-2024 Patient encounter status Anuradha Krishnan APRN.[employer] Work Phone: [facility] Start: 08-04-2024 End: 08-04-2024 Emergency department patient visit [facility] Facility:[facility] Start: 08-03-2024 End: 08-03-2024 ambulatory Adali Avery RN NURSE [employer] Comment on above: Patient Update Start: 07-29-2024 End: 07-29-2024 ambulatory Misa Ray NP Facility:[facility] Start: 07-25-2024 End: 07-25-2024 ambulatory Linda Moreland CONTINUOUS TOWEL ROLLER.CNM Work Phone: OB/Gynecology Comment on above: results Start: 07-25-2024 End: 07-25-2024 E-mail encounter from caregiver Linda Moreland CONTINUOUS TOWEL ROLLER.CNM Work Phone: OB/Gynecology Start: 07-24-2024 End: 07-24-2024 ambulatory LINDA MORELAND Facility:[facility] Start: 07-24-2024 End: 07-24-2024 Patient encounter procedure Linda Moreland CONTINUOUS TOWEL ROLLER.CNM Work Phone: OB/Gynecology Comment on above: Vaginal discharge (P rimary Dx); Acute vaginitis Start: 06-28-2024 Refill Linda Vásquez rito CONTINUOUS TOWEL ROLLER.CNM Work Phone: OB/Gynecology Comment on above: Refill Request Start: 04-29-2024 End: 04-29-2024 ambulatory NEREYDA RUFFIN Facility:[facility] Start: 04-29-2024 End: 04-29-2024 Office outpatient visit 15 minutes Nereyda Ruffin MD Work Phone: OB/Gynecology Comment on above: Vaginal discharge (P rimary Dx) Start: 03-06-2024 End: 03-06-2024 Patient encounter procedure Veronica Claros PA-C Work Phone: [facility] Comment on above: Constipation, unspec ified constipation type (Primary Dx) Start: 03-06-2024 End: 03-06-2024 ambulatory Veronica Claros PA-C Work Phone: Colorectal Surgery Comment on above: Manometry Start: 02-20-2024 End: 02-20-2024 ambulatory Kenneth Wells MD, PhD Work Phone: Gastroenterology Comment on above: Chronic idiopathic c onstipation Start: 02-20-2024 End: 02-20-2024 Telemedicine consultation with patient Kenneth Wells MD, PhD Work Phone: [facility] Start: 01-30-2024 End: 01-30-2024 Patient encounter procedure Monse Govea MD Work Phone: [facility] Comment on above: Abnormal findings on diagnostic imaging of breast (Primary Dx) Start: 01-30-2024 End: 01-30-2024 ambulatory MONSE GOVEA Facility:[facility] Start: 01-28-2024 End: 01-28-2024 Patient encounter procedure Aurelia Harringtonmarko LAGUERRE.SOLDERER [employer] Work Phone: OB/Gynecology Comment on above: Vaginal itching (Gale monse Dx); Chronic idiopathic constipation Start: 01-21-2024 End: 01-21-2024 ambulatory MONSE GOVEA Facility:[facility] Start: 01-18-2024 End: 01-18-[address] [facility] Work Phone: [facility] Comment on above: Atypical lobular hyp erplasia (ALH) of right breast (Primary Dx) Start: 01-18-2024 End: 01-18-2024 Telemedicine consultation with patient Veronica Davis [facility] Work Phone: [facility] Start: 01-15-2024 End: 01-15-2024 Admission to [facility] Start: 01-15-2024 End: 01-15-2024 [address] 2 Pre Surgical Testing Comment on above: Abnormal findings on diagnostic imaging of breast [R92.8] (Primary Dx); Hypotension, unspecified hypotension type; History of hypoglycemia; Pre-op testing Start: 01-15-2024 End: 01-15-2024 Patient encounter status Pst 2 [facility] Work Phone: Start: 01-07-2024 End: 01-07-2024 Subsequent hospital visit by physician Deni Perkins (1.5t) RADIO MRI [facility] Comment on above: Breast cancer screen ing, high risk patient [Z12.39] Start: 12-24-2023 Telephone encounter Monse dawn MD Work Phone: [facility] Comment on above: Preparations For Alfredo yohannes Start: 12-21-2023 Orders Only Ayanna Teague [facility] Comment on above: Abnormal findings on diagnostic imaging of breast (Primary Dx) Start: 11-21-2023 End: 11-21-2023 ambulatory [facility] Work Phone: Start: 11-21-2023 End: 11-21-2023 Patient encounter procedure [facility], [facility] Work Phone: Start: 11-19-2023 End: 11-20-2023 Emergency department patient visit [facility] Work Phone: Start: 10-30-2023 End: 10-30-2023 Patient encounter procedure Suzanne Salinas MD Work Phone: General Surgery Comment on above: Abnormal ultrasound of breast (Primary Dx) Start: 10-28-2023 End: 10-28-2023 Emergency department patient visit [facility] Work Phone: Start: 10-24-2023 Telephone encounter Aurelia parker APRN.CNP Work Phone: OB/Gynecology Comment on above: Results Start: 10-23-2023 End: 10-23-2023 Subsequent hospital visit by physician Us [facility] Work Phone: Radiology Comment on above: Abnormal mammogram [ R92.8] Start: 10-08-2023 Documentation procedure Mammography Coordinator [facility] Start: 10-08-2023 Letter encounter Mammography Coordinator [facility] Department Start: 10-05-2023 End: 10-05-2023 Patient encounter status Screen Wstr [facility] Start: 10-05-2023 End: 10-05-2023 Subsequent hospital visit by physician Screen Mammo [facility] Comment on above: Encounter for gyneco logical examination (general) (routine) without abnormal findings [Z01.419] Start: 09-28-2023 End: 09-28-2023 ambulatory [facility] Work Phone: Start: 09-28-2023 End: 09-28-2023 Patient encounter procedure [facility] Work Phone: Start: 08-09-2023 End: 08-09-2023 Patient encounter procedure Ivon Parmar APRN.[employer]ER [employer] Work Phone: OB/Gynecology Comment on above: Acute vaginitis (Gale monse Dx); Constipation, unspecified constipation type Start: 06-07-2023 End: 06-07-2023 Patient encounter procedure Ivon Parmar APRN.[employer] Work Phone: OB/Gynecology Comment on above: Urinary tract infect ion without hematuria, site unspecified (Primary Dx); BV (bacterial vaginosis); Vagina itching Start: 06-06-2023 Telephone encounter Morenita Gagnon MD Work Phone: OB/Gynecology Comment on above: Patient Update Start: 06-03-2023 Telephone encounter Aleta LIMA Work Phone: [facility] Comment on above: Results Start: 06-02-2023 End: 06-02-2023 Patient encounter procedure Aleta LIMA Work Phone: [facility] Comment on above: Pain with urination (Primary Dx) Start: 05-23-2023 End: 05-23-2023 Patient encounter procedure Katherine Galindo APRN.SOLDERER [employer] Work Phone: [facility] Comment on above: Acute vaginitis (Gale monse Dx) Start: 04-01-2023 End: 04-01-2023 Patient encounter procedure Lanie Franco APRN.SOLDERER [employer] Work Phone: [facility] Comment on above: Sore throat (Primary Dx) Start: 03-20-2023 End: 03-20-2023 Subsequent hospital visit by physician Xr [facility] Work Phone: Radiology Comment on above: Pain [R52] Start: 03-20-2023 End: 03-20-2023 Patient encounter procedure Lanie Franco APRN.SOLDERER [employer] Work Phone: [facility] Comment on above: Pain (Primary Dx) Start: 03-14-2023 Telephone encounter Katherine Galindo CONTINUOUS TOWEL ROLLER.SOL[employer]ER [employer] Work Phone: [facility] Comment on above: Results Start: 03-13-2023 End: 03-13-2023 Patient encounter procedure Sharee Church PA-C Work Phone: [facility] Comment on above: Vaginal discharge (P rimary Dx) Start: 02-14-2023 Telephone encounter Lanie Franco APRN.SOLDERER [employer] Work Phone: [facility] Comment on above: Results Start: 01-12-2023 Telephone encounter Morenita Gagnon MD Work Phone: OB/Gynecology Comment on above: Results Start: 12-27-2022 End: 12-27-2022 Patient encounter procedure Linda Moreland CONTINUOUS TOWEL ROLLER.CNM Work Phone: OB/Gynecology Comment on above: Vaginal discharge (P rimary Dx); Vaginal irritation Start: 12-12-2022 End: 12-12-2022 Patient encounter procedure Linda Tubbsvidhya CONTINUOUS TOWEL ROLLER.CNM Work Phone: OB/Gynecology Comment on above: Vaginal irritation ( Primary Dx) Start: 11-29-2022 End: 11-29-2022 Patient encounter procedure Ivon Parmar APRN.SOLDERER [employer] Work Phone: OB/Gynecology Comment on above: Vaginal discharge (P rimary Dx) Start: 11-07-2022 End: 11-07-2022 Patient encounter procedure Ivon Parmar APRN.SOL[employer]ER [employer] Work Phone: OB/Gynecology Comment on above: Vaginal itching (Gale monse Dx); Vaginal discharge Start: 11-04-2022 End: 11-04-2022 Patient encounter procedure Veronica Braswell CONTINUOUS TOWEL ROLLER.SOL[employer]ER [employer] Work Phone: [facility] Comment on above: Strep pharyngitis (P rimary Dx); URI, acute Start: 09-30-2022 End: 09-30-2022 [facility] Start: 07-17-2022 End: 07-17-2022 Patient encounter procedure Liseth Stevenson MD Work Phone: OB/Gynecology Comment on above: Vaginal discharge (P rimary Dx); Vaginal irritation Procedures Date Procedure Procedure Detail Performing Clinician Start: 02-27-2025 BACTERIAL VAGINOSIS NAAT Nereyda Ruffin MD Work Phone: Start: 02-27-2025 Iadna chlamydia trac homatis amplified probe tq Nereyda Ruffin MD Work Phone: Start: 01-15-2025 Bx breast w/device 1 st lesion stereotactic guid Monse Govea MD Work Phone: Start: 01-15-2025 Diagnostic mammograp hy computer-aided detcj uni Aurelia Borges APRN.[employer] Work Phone: Start: 11-26-2024 Us breast uni real t tarun with image limited Aurelia Borges APRN.SOL[employer]ER [employer] Work Phone: Start: 11-26-2024 Digital breast tomosynthesis unilateral Aurelia Borges APRN.[employer] Work Phone: Start: 10-22-2024 Screening digital br east tomosynthesis bi Aurelia Borges APRN.[employer]ER [employer] Work Phone: Start: 09-26-2024 STREP A MOLECULAR (POC) Lanie Franco APRN.[employer] Work Phone: Start: 03-06-2024 [facility]ULT [place] [facility] Kenneth Wells MD, PhD Work Phone: Start: 01-28-2024 BACTERIAL VAGINOSIS NAAT Aurelia Borges APRN.[employer] Work Phone: Start: 01-28-2024 Iadna trichomonas va ginalis amplified probe tech Aurelia Borges APRN.[employer] Work Phone: Start: 01-07-2024 Mri breast without&w ith contrast w/cad bilateral Monse Govea MD Work Phone: Start: 11-21-2023 Transvaginal echography Start: 11-19-2023 CT of abdomen and pe lvis without contrast Start: 10-28-2023 Diagnostic radiograp hy of abdomen Start: 10-23-2023 Us breast uni real t tarun with image limited Ivon Jailyn SHADE.[employer] Work Phone: Start: 10-23-2023 Digital breast tomosynthesis unilateral Anuradha Krishnan SHADE.[employer] Work Phone: Start: 06-02-2023 Urnls dip stick/tabl et rgnt auto w/o microscopy Aleta LIMA Work Phone: Start: 04-01-2023 STREP A MOLECULAR (POC) Lanie Franco APRN.[employer] Work Phone: Start: 03-20-2023 Radex hand minimum 3 views Lanie Franco APRN.[employer] Work Phone: Start: 11-04-2022 STREP A MOLECULAR (POC) [facility] Provider Start: 09-30-2022 CT of head without contrast Start: 07-17-2022 BACTERIAL VAGINOSIS AMPLIFICATION Liseth Stevenson MD Work Phone: Start: 07-17-2022 Iadna trichomonas va ginalis amplified probe tech Liseth Stevenson MD Work Phone: Start: 07-01-2021 Mammography Liseth turner MD Work Phone: Plan of Treatment Date Care Activity Detail Author Start: 06-20-2034 Urine microalbumin profile DTaP,Tdap,Td Vaccine (3 - Td or Tdap) [facility] Start: 09-20-2028 HPV Testing HPV Testing [facility] Start: 09-20-2028 Pap Testing Pap Testing [facility] Start: 09-20-2028 Screening for malign ant neoplasm of cervix [facility] Start: 10-22-2025 Screening for malign ant neoplasm of breast Mammogram Screening [facility] Start: 10-19-2025 End: 10-19-2025 Patient encounter procedure 10/19/2025 3:30 PM EST Office Visit OB/Gynecology [address] [place] [address] Linda Moreland APRN.[facility] [address] [place] [address] Annual OB/Gynecology Comment on above: Annual Start: 10-14-2025 End: 10-14-2025 Patient encounter procedure 10/14/2025 2:45 PM EST Office Visit OB/Gynecology [address] [place] [address] Aurelia Borges APRN.[employer] [address] [place] [place] [address] (Fax) Annual OB/Gynecology Comment on above: Annual Start: 07-20-2025 Influenza vaccination Influenz a Vaccine (Season Ended) [facility] Start: 01-20-2025 End: 01-20-2025 Patient encounter procedure 01/20/2025 3:00 PM EST Office Visit [facility] [address] [facility] [address] [place] [address] Monse Govea MD [address] [facility] [place] [address] follow up after biopsy [facility] Comment on above: follow up after biop sy Start: 12-31-2024 End: 12-31-2024 Patient encounter procedure Mammogram Comment on above: LOUANN DIAGNOSTIC LEFT CB PER SM US BREAST LTD LEFT C B PER SM Start: 11-05-2024 Urine microalbumin profile [facility] Start: 10-22-2024 End: 10-22-2024 Patient encounter procedure 10/22/2024 2:40 PM EST Appointment Mammogram [address] [place] [address] Encounter for screening mammogram for breast cancer [Z12.31] Mammogram Comment on above: Encounter for screen ing mammogram for breast cancer [Z12.31] Start: 10-08-2024 End: 10-08-2024 Patient encounter procedure 10/08/2024 2:45 PM EST Office Visit OB/Gynecology [address] [place] [address] Aurelia Borges APRN.[employer] [address] [place] [address] Annual OB/Gynecology Comment on above: Annual Start: 10-08-2024 End: 10-08-2024 Patient encounter procedure 10/08/2024 1:30 PM EST Office Visit OB/Gynecology [address] [place] [address] Ivon Parmar APRN.[employer] [address] [place] [address] Annual OB/Gynecology Comment on above: Annual Start: 10-05-2024 Mammography Mammogram Screening [facility] Start: 10-05-2024 Screening for malign ant neoplasm of breast Mammogram Screening [facility] Start: 09-23-2024 End: 09-23-2024 Patient encounter procedure 09/23/2024 3:30 PM EST Office Visit OB/Gynecology [address] [place] [address] Ivon Parmar, CONTINUOUS TOWEL ROLLER.[employer] [address] [place] [address] Annual OB/Gynecology Comment on above: Annual Start: 08-19-2024 End: 08-19-2024 Patient encounter procedure Cat Scan Comment on above: Abnormal uterine ble eding (AUB) [N93.9] Start: 08-04-2024 End: 11-03-2024 CREATININE BLD CREATININE BLD Lab Routine Abnormal uterine bleeding (AUB) Pre-procedural laboratory examination Expected: 08/04/2024, Expires: 11/03/2024 [facility] Comment on above: Expected: 08/04/2024 , Expires: 11/03/2024 Start: 08-04-2024 End: 11-03-2024 Iron and Iron binding capacity panel - Serum or Plasma IRON AND TIBC Lab Routine Abnormal uterine bleeding (AUB) Expected: 08/04/2024, Expires: 11/03/2024 [facility] Comment on above: Expected: 08/04/2024 , Expires: 11/03/2024 Start: 07-20-2024 Covid-19 Vaccine ( season) Covid-19 Vaccine ( season) [facility] Start: 07-20-2024 Covid-19 Vaccine ( season) Covid-19 Vaccine ( season) [facility] Start: 07-20-2024 Influenza vaccination C [facility] Start: 05-12-2024 End: 05-12-2024 ambulatory 05/12/2024 9:30 AM EDT OT/PT/Speech Visit [facility] [address] [place] [address] Bre Muhammad, PT [address] [place], [place] [id number] AUTH REQ [facility] Comment on above: AUTH REQ Start: 11-20-2023 US Pelvis transvaginal [facility] Start: 11-19-2023 Behavioral Health Screening Behavioral Health Screening [facility] Start: 11-19-2023 Depression Assessment Depression Ass [facility] Start: 10-28-2023 [facility] Start: 08-08-2023 HPV TESTING HPV TESTING [facility] Start: 08-08-2023 PAP TESTING PAP TESTING [facility] Start: 07-20-2023 Covid-19 Vaccine ( season) Covid-19 Vaccine () [facility] Start: 07-20-2023 Influenza vaccination [facility] Start: 06-02-2023 End: 08-02-2023 Bacteria identified in Urine by Culture URINE CULTURE Microbiology Routine Pain with urination Expected: 06/02/2023, Expires: 08/02/2023 [facility] Work Phone: Comment on above: Expected: 06/02/2023 , Expires: 08/02/2023 Start: 11-19-2022 [facility]MENT [facility] Start: 07-20-2022 Influenza vaccination INFLUENZA (#1) [facility] Start: 07-01-2022 Mammography [facility] Start: 11-19-2021 DEPRESSION ASSESSMENT [facility] Start: 04-17-2013 Hepatitis B Vaccine (2 of 3 - 19+ 3-dose series) Hepatitis B Vaccine (2 of 3 - 19+ 3-dose series) [facility] Start: 1999 Anxiety Screening Anxiety Screening [facility] Start: 1999 Depression Screening Depression Scre ening [facility] Start: 1993 Adult depression screening assessment DEPRESSION SCREENING [facility] Start: 1981 COVID-19 VACCINE (#1) COVID-19 VACCI NE (#1) [facility] Start: 1981 HEPATITIS B (1 of 3 - 3-dose series) HEPATITIS B (1 of 3 - 3-dose series) [facility] Start: 1981 Hepatitis B Vaccine (1 of 3 - 3-dose series) Hepatitis B Vaccine (1 of 3 - 3-dose series) [facility] End: 02-19-2025 [facility]ULT [place] [facility]ULT [place] [facility] Endoscopy Routine Chronic idiopathic constipation 1 Occurrences starting 02/20/2024 until 02/19/2025 [facility] Work Phone: Comment on above: 1 Occurrences starti ng 02/20/2024 until 02/19/2025 [facility] ANORECTAL MANOMETRY [facility] ANORECTAL MANOMETRY Endoscopy Routine Chronic idiopathic constipation 03/06/2024 [facility] Work Phone: BACTERIAL VAGINOSIS AMPLIFICATION BACTERIAL VAGINOSIS AMPLIFICATION Lab Routine Vaginal itching Vaginal discharge 11/07/2022 2:24 PM EST [facility] Work Phone: BACTERIAL VAGINOSIS AMPLIFICATION BACTERIAL VAGINOSIS AMPLIFICATION Lab Routine Vaginal discharge 11/29/2022 2:54 PM EST [facility] Work Phone: BACTERIAL VAGINOSIS AMPLIFICATION BACTERIAL VAGINOSIS AMPLIFICATION Lab Routine Vaginal irritation 12/12/2022 2:19 PM EST [facility] Work Phone: BACTERIAL VAGINOSIS AMPLIFICATION BACTERIAL VAGINOSIS AMPLIFICATION Lab Routine Vaginal discharge 12/27/2022 2:42 PM EST [facility] Work Phone: BACTERIAL VAGINOSIS AMPLIFICATION BACTERIAL VAGINOSIS AMPLIFICATION Lab Routine Vaginal discharge 03/13/2023 2:04 PM EDT [facility] Work Phone: BACTERIAL VAGINOSIS NAAT BACTERI AL VAGINOSIS NAAT Lab Routine Acute vaginitis 05/23/2023 10:27 AM EDT [facility] Work Phone: BACTERIAL VAGINOSIS NAAT BACTERI AL VAGINOSIS NAAT Lab Routine Pain with urination Ordered: 06/02/2023 [facility] Work Phone: Comment on above: Ordered: 06/02/2023 BACTERIAL VAGINOSIS NAAT BACTERI AL VAGINOSIS NAAT Lab Routine Acute vaginitis 08/09/2023 9:17 AM EDT [facility] Work Phone: BACTERIAL VAGINOSIS NAAT BACTERI AL VAGINOSIS NAAT Lab Routine Vaginal discharge 04/29/2024 12:00 PM [facility] Work Phone: BACTERIAL VAGINOSIS NAAT BACTERI AL VAGINOSIS NAAT Lab Routine Vaginal discharge 07/24/2024 2:06 PM EDT [facility] BACTERIAL VAGINOSIS NAAT BACTERI AL VAGINOSIS NAAT Lab Routine Vaginal irritation 08/04/2024 2:54 PM T [facility] BACTERIAL VAGINOSIS NAAT BACTERI AL VAGINOSIS NAAT Lab Routine Vaginal discharge Vaginal itching 10/08/2024 3:[address] [facility] STACI / TRICHOMONA S AMPLIFICATION STACI / TRICHOMONAS AMPLIFICATION Microbiology Routine Vaginal itching Vaginal discharge 11/07/2022 2:24 PM [facility] Work Phone: STACI / TRICHOMONA S AMPLIFICATION STACI / TRICHOMONAS AMPLIFICATION Microbiology Routine Vaginal discharge 11/29/2022 2:54 PM [facility] Work Phone: TSACI / TRICHOMONA S AMPLIFICATION STACI / TRICHOMONAS AMPLIFICATION Microbiology Routine Vaginal irritation 12/12/2022 2:19 PM [facility] Work Phone: STACI / TRICHOMONA S AMPLIFICATION STACI / TRICHOMONAS AMPLIFICATION Microbiology Routine Vaginal discharge 12/27/2022 2:42 PM [facility] Work Phone: STACI / TRICHOMONA S AMPLIFICATION STACI / TRICHOMONAS AMPLIFICATION Microbiology Routine Vaginal discharge 03/13/2023 2:04 PM EDT [facility] Work Phone: STACI/TRICHOMONAS NAAT STACI /TRICHOMONAS NAAT Microbiology Routine Acute vaginitis 05/23/2023 10:27 AM [facility] Work Phone: STACI/TRICHOMONAS NAAT STACI /TRICHOMONAS NAAT Microbiology Routine Pain with urination Ordered: 06/02/2023 [facility] Work Phone: Comment on above: Ordered: 06/02/2023 STACI/TRICHOMONAS NAAT STACI /TRICHOMONAS NAAT Lab Routine Acute vaginitis 08/09/2023 9:17 AM [facility] Work Phone: STACI/TRICHOMONAS NAAT STACI /TRICHOMONAS NAAT Lab Routine Vaginal discharge 04/29/2024 12:00 PM [facility] STACI/TRICHOMONAS NAAT STACI /TRICHOMONAS NAAT Lab Routine Vaginal discharge 07/24/2024 2:06 PM [facility] Work Phone: STACI/TRICHOMONAS NAAT STACI /TRICHOMONAS NAAT Lab Routine Vaginal irritation 08/04/2024 2:54 PM [facility] STACI/TRICHOMONAS NAAT STACI /TRICHOMONAS NAAT Lab Routine Vaginal discharge Vaginal itching 10/08/2024 3:[address] [facility] Chlamydia trachomatis+Neisseria gonorrhoeae DNA [Presence] in Unspecified specimen by LUIS with probe detection GC/CHLAMYDIA DNA DET Lab Routine Vaginal discharge 12/27/2022 3:42 PM [facility] Work Phone: Chlamydia trachomatis+Neisseria gonorrhoeae DNA [Presence] in Unspecified specimen by LUIS with probe detection GC/CHLAMYDIA DNA DET Lab Routine Vaginal discharge 03/13/2023 2:04 PM [facility] Work Phone: Chlamydia trachomatis+Neisseria gonorrhoeae DNA [Presence] in Unspecified specimen by LUIS with probe detection GONORRHEA/CHLAMYDIA NAAT Lab Routine Vaginal irritation 08/04/2024 2:54 PM [facility] End: 09-03-2025 CT Abdomen and Pelvis W contrast IV CT ABD/PEL W IVCON Radiology Routine Abnormal uterine bleeding (AUB) 1 Occurrences starting 08/04/2024 until 09/03/2025 [facility] Work Phone: Comment on above: 1 Occurrences starti ng 08/04/2024 until 09/03/2025 End: 11-07-2025 DBT Breast - bilateral screening LOUANN SCREENING W MARIANNE Radiology Routine Encounter for screening mammogram for breast cancer 1 Occurrences starting 10/08/2024 until 11/07/2025 [facility] Work Phone: Comment on above: 1 Occurrences starti ng 10/08/2024 until 11/07/2025 LOUANN SCREENING W MARIANNE LOUANN SCREENI NG W MARIANNE Radiology Routine Encounter for gynecological examination (general) (routine) without abnormal findings Encounter for screening mammogram for breast cancer Extremely dense tissue of both breasts on mammography 10/05/2023 3:24 PM EST [facility] Work Phone: End: 11-21-2025 MG Breast - left Diagnostic for implant LOUANN DIAGNOSTIC LEFT Radiology Routine Abnormal mammogram 1 Occurrences starting 10/22/2024 until 11/21/2025 [facility] Comment on above: 1 Occurrences starti ng 10/22/2024 until 11/21/2025 End: 02-15-2026 MG Breast - left Diagnostic for implant LOUANN DIAGNOSTIC LEFT Radiology Routine Abnormal mammogram 1 Occurrences starting 01/16/2025 until 02/15/2026 [facility] Work Phone: Comment on above: 1 Occurrences starti ng 01/16/2025 until 02/15/2026 Patient Education [facility] Work Phone: Patient referral [facility] Work Phone: End: 11-28-2024 US BIOPSY BREAST RIGHT US BIOPSY BREAST RIGHT Radiology Routine Abnormal ultrasound of breast 1 Occurrences starting 10/30/2023 until 11/28/2024 [facility] Work Phone: Comment on above: 1 Occurrences starti ng 10/30/2023 until 11/28/2024 End: 11-21-2025 US Breast - left limited US BREAST LTD LEFT Radiology Routine Abnormal mammogram 1 Occurrences starting 10/22/2024 until 11/21/2025 [facility] Work Phone: Comment on above: 1 Occurrences starti ng 10/22/2024 until 11/21/2025 [facility] [place] [facility] Immunizations Immunization Date Immunization Notes Care Provider Fa rose mary 11-05-2014 tetanus toxoid, redu ranjeet diphtheria toxoid, and acellular pertussis vaccine, adsorbed Liseth Stevenson MD Work Phone: [facility] Payers Date Payer Category Payer Unknown [id number] 2024 Self-pay [id number] 2020 Unknown [id number] 2017 Medicaid [id number] 1981 Unknown [id number] Unknown [employer] [id number] Unknown [facility] [id number] Unknown [id number] Unknown [id number] [id number] Unknown [id number] Unknown [id number] Social History Date Type Detail Facility Start: 07-17-2022 End: 07-24-2024 Tobacco smoking status NHIS Ex-smoker [facility] End: 07-20-2009 History of tobacco use Current smoker [facility] End: 07-20-2009 History of tobacco use Cigarette Smoker [facility] Start: 07-17-2022 End: 06-07-2023 Cigarettes smoked current (pack per day) - Reported 0.5 [facility] Start: 07-17-2022 End: 07-24-2024 Tobacco use and exposure Smokeless tobacco non-user [facility] Start: 07-17-2022 End: 02-28-2025 Alcohol intake Current drinker of alcohol (finding) [facility] Start: 06-02-2014 History SDOH Alcohol Comment Seldom, NOT WHILE [facility] Start: 1980 Sex Assigned At Not on file C [facility] Start: 07-04-2022 End: 07-14-2022 Exposure to SARS-CoV-2 (event) Not sure [facility] Start: 09-30-2022 End: 11-19-2023 Tobacco smoking status NHIS Unknown if ever smoked [facility] Start: 03-06-2021 With Family [facility] Start: 04-11-2021 Non-smoker [facility] Start: 1980 Sex Assigned At Female [facility] Start: 06-02-2023 End: 06-07-2023 Tobacco use panel [facility] National Score (1-10 0), lower number is lower risk 68 [facility] Medical Equipment Procedure Code Equipment Code Equipment Origin al Text Equipment Identifier Dates Clip Filshie Cur ve Silastic Titanium Internal Soft Line Upper Jaw Tubal - [id number] Start: 03-22-2017 Clip Filshie Cur ve Silastic Titanium Internal Soft Line Upper Jaw Tubal - [id number] Start: 03-22-2017 Functional Status Date Assessment Result Facility 06-21-2015 Are you deaf, or do you have serious difficulty hearing No 06/21/2015 1:46 PM Batsheva Denise MA No [facility] 06-21-2015 Are you blind, or do you have serious difficulty seeing, even when wearing glasses No 06/21/2015 1:46 PM Batsheva Denise MA No [facility] 06-21-2015 Do you have serious difficulty walking or climbing stairs No 06/21/2015 1:46 PM Batsheva Denise MA No [facility] 06-21-2015 Do you have difficul ty dressing or bathing No 06/21/2015 1:46 PM EDT Batsheva Finney MA No [facility] 06-21-2015 Because of a physica l, mental, or emotional condition, do you have difficulty doing errands alone such as visiting a physician's office or shopping No 06/21/2015 1:46 PM EDT Batsheva Finney MA No [facility] Mental Status Date Assessment Result Facility 06-21-2015 Because of a physica l, mental, or emotional condition, do you have serious difficulty concentrating, remembering, or making decisions No 06/21/2015 1:46 PM EDT Batsheva Finney MA No [facility] Clinical Notes 12-30-2014 to 02-27-2025 Nereyda Ruffin MD - 02/27/2025 1:50 PM EDTPatient InstructionsTelephone Encounter - Rober Urrutia RN - 02/02/2025 3:29 PM EDTTelephone Encounter - Rboer Urrutia RN - 02/02/2025 3:29 PM EDT Note Date & Type Note Facility 02-27-2025 Note HNO ID: [id number] Author: NEREYDA RUFFIN MD Service: ? Author Type: Physician Type: Progress Notes Filed: 02/28/2025 11:58 Note Text: Ecotherapist offered: Patient declines. Jaycee Reed is a 44 year old female who presents for vaginal discharge Does have a new partner. Desires STD screening Skin tag removed by derm. Few more showed up after. No itching. No pain Vaginal discharge: moderate amount and watery. Itching: Some Dyspareunia: No Fever/chills: No Abdominal pain: No Bladder: Negative for dysuria or frequency Bowel: No blood in stool, pain with BM, tarry stool, persistent diarrhea or constipation Any new sexual partners or concern for STD exposure: Yes: Any history of STDs: None Does your partner have any new complaints: No Are you currently taking any medications to treat vaginitis: No Do you use feminine sprays, douches or deodorants: No Menstrual cycle: normal Contraception: tubal sterilization Last pap: 2022, normal Past medical, surgical, social history, medications and allergies reviewed and updated. OBJECTIVE: SENSITIVE EXAM: The sensitive examination was discussed with the Patient or Patient's Authorized [place]. As applicable, any other physician, advance practice provider, medical student, or other health professional student that will be observing or involved in the sensitive examination for educational or training purposes was discussed with the Patient or Authorized [place]. The Patient or Authorized [place] Warden has agreed to proceed with the sensitive examination. (Sensitive examination includes inspection and/or palpation of the breasts, pelvis, prostate and anorectal regions). BP 112/62 Wt 123 lb (55.8kg) LMP 02/16/2025 GENERAL: Well developed, well nourished in no apparent distress ABDOMEN: soft, non-tender, and no masses PELVIC: external genitalia normal, normal Bartholin's glands, urethra, [place]'s glands, no vulvar lesions, no cervical lesions, good vaginal support, physiologic discharge present, normal appearing perineal body and perianal region. Small raised skin colored bumps consistent with molluscum BIMANUAL: deferred. RECTOVAGINAL: deferred. ASSESSMENT/PLAN: Vaginitis Molluscum STD screening STD screening: Accepted STD check for Gonorrhea and Chlamydia. Nereyda Ruffin MD [facility] 02-27-2025 History of Present illness Narrative Ecotherapist offered: Patient declines. Jaycee Reed is a 44 year old female who presents for vaginal discharge Does have a new partner. Desires STD screening Skin tag removed by derm. Few more showed up after. No itching. No pain Vaginal discharge: moderate amount and watery. Itching: Some Dyspareunia: No Fever/chills: No Abdominal pain: No Bladder: Negative for dysuria or frequency Bowel: No blood in stool, pain with BM, tarry stool, persistent diarrhea or constipation Any new sexual partners or concern for STD exposure: Yes: Any history of STDs: None Does your partner have any new complaints: No Are you currently taking any medications to treat vaginitis: No Do you use feminine sprays, douches or deodorants: No Menstrual cycle: normal Contraception: tubal sterilization Last pap: 2022, normal Past medical, surgical, social history, medications and allergies reviewed and updated. OBJECTIVE: SENSITIVE EXAM: The sensitive examination was discussed with the Patient or Patient's Authorized [place] W[place]. As applicable, any other physician, advance practice provider, medical student, or other health professional student that will be observing or involved in the sensitive examination for educational or training purposes was discussed with the Patient or Authorized [place] W[place]. The Patient or Authorized [place] W[place] has agreed to proceed with the sensitive examination. (Sensitive examination includes inspection and/or palpation of the breasts, pelvis, prostate and anorectal regions). BP 112/62 Wt 123 lb (55.8kg) LMP 02/16/2025 GENERAL: Well developed, well nourished in no apparent distress ABDOMEN: soft, non-tender, and no masses PELVIC: external genitalia normal, normal Bartholin's glands, urethra, [place]'s glands, no vulvar lesions, no cervical lesions, good vaginal support, physiologic discharge present, normal appearing perineal body and perianal region. Small raised skin colored bumps consistent with molluscum BIMANUAL: deferred. RECTOVAGINAL: deferred. ASSESSMENT/PLAN: Vaginitis Molluscum STD screening STD screening: Accepted STD check for Gonorrhea and Chlamydia. Nereyda Ruffin MD documented in this encounter [facility] 02-27-2025 Instructions Deb Elder MA - 02/27/2025 1:50 PM EDT Minimizing irritation of the vulva (area around the vagina) Wear white cotton underwear. Avoid synthetic fabrics and tight clothing. Sleep wearing shorts or pajama bottoms without underwear. Shower as soon as possible after exercise. Avoid clothing detergents and soaps with perfumes or dyes. Use warm (not hot) water to wash the vulva and if you use soap use a product designed for sensitive skin (like Dove or Cetaphil). Do not douche or use creams/powders in the vulvar area unless instructed by your physician. If you must douche, use only plain warm water. Make sure the vulva is dry before dressing by patting dry with a towel. Avoid vigorous rubbing with the towel. You may want to use the blow dryer (on the cool setting only!) on the vulva. The most important way to let your body heal is by avoiding scratching. Many patients find it difficult to avoid scratching at night when they are most aware of the itchiness. You can try taking Benadryl just before bedtime. Some women find it helpful to wear cotton gloves to bed to avoid scratching at night. documented in this encounter [facility] 02-02-2025 Telephone encounter Note Pt notified and voiced understanding. Rober Urrutia RN [facility] 02-02-2025 Miscellaneous Notes Pt notified and voiced understanding. Rober Urrutia RN Schedule appointment if symptoms persist Aurelia Borges APRN.CNP Patient calling with complaints of a yeast infection. Patient states she is going to do an OTC 7 day Monistat treatment for her symptoms but is asking if she can get another prescription for the Florajen that was previously prescribed for her. Please file if appropriate. Carmen Flores RN documented in this encounter [facility] 02-02-2025 Telephone encounter Note Schedule appointment if symptoms persist Aurelia Borges APRN.CNP [facility] 02-02-2025 Telephone encounter Note Patient calling with complaints of a yeast infection. Patient states she is going to do an OTC 7 day Monistat treatment for her symptoms but is asking if she can get another prescription for the Florajen that was previously prescribed for her. Please file if appropriate. Carmen Flores RN [facility] 01-16-2025 Progress note Formatting of t his note might be different from the original. Patient notified and voiced understanding of results and follow up. Patient will call back to schedule. Carmen Flores RN [facility] 01-16-2025 Miscellaneous Notes Patient notified and voiced understanding of results and follow up. Patient will call back to schedule. Carmen Flores RN documented in this encounter [facility] 12-03-2024 Telephone encounter Note A message was left for the patient to call the office and ask for Ayanna to schedule dx films and biopsy. Ayanna Sandoval MA [facility] 12-03-2024 Miscellaneous Notes A message was left for the patient to call the office and ask for Ayanna to schedule dx films and biopsy. Ayanna Sandoval MA documented in this encounter [facility] 12-01-2024 Telephone encounter Note See phone note 11/26. Please call patient. Aurelia Borges APRN.CNP [facility] 12-01-2024 Miscellaneous Notes See phone note 11/26. Please call patient. Aurelia Borges APRN.CNP documented in this encounter [facility] 11-26-2024 History of Present illness Narrative Radiology Service Progress Note PATIENT NAME: Jaycee Reed DATE OF SERVICE: November 26, 2024 TIME: 3:41 PM PATIENT IDENTITY VERIFICATION COMPLETED USING TWO (2) IDENTIFIERS: Name and Date of confirmed by patient verbally. FALL SCREENING: Has the patient had 2 falls in the last year or 1 fall with injury or currently using an Ambulatory Assistive Device (Walker, Cane, Wheelchair, Crutches, etc.)? No PATIENT GENDER DATA: Female. status: : No status: NO. PATIENT RELEVANT IMPLANT DATA REVIEWED: Not Applicable PATIENT PRESENTS WITH AN IMPLANTABLE OR ATTACHED GALLERY OR MUSEUM GUIDE: No RADIOLOGY DEPARTMENT: Ultrasound PERIPHERAL IV DATA: Not applicable SIGNED BY: Veronica Rogers RDMS Farhan November 26, 2024 3:41 PM documented in this encounter [facility] 11-26-2024 Note HNO ID: [id number] Author: VERONICA ROGERS RDMS Service: ? Author Type: Movement Assembly Final Inspector Type: Progress Notes Filed: 11/26/2024 15:41 Note Text: Radiology Service Progress Note PATIENT NAME: Jaycee Reed DATE OF SERVICE: November 26, 2024 TIME: 3:41 PM PATIENT IDENTITY VERIFICATION COMPLETED USING TWO (2) IDENTIFIERS: Name and Date of confirmed by patient verbally. FALL SCREENING: Has the patient had 2 falls in the last year or 1 fall with injury or currently using an Ambulatory Assistive Device (Walker, Cane, Wheelchair, Crutches, etc.)? No PATIENT GENDER DATA: Female. status: : No status: NO. PATIENT RELEVANT IMPLANT DATA REVIEWED: Not Applicable PATIENT PRESENTS WITH AN IMPLANTABLE OR ATTACHED GALLERY OR MUSEUM GUIDE: No RADIOLOGY DEPARTMENT: Ultrasound PERIPHERAL IV DATA: Not applicable SIGNED BY: Veronica Rogers RDMS RVFarhan November 26, 2024 3:41 PM [facility] 11-26-2024 History of Present illness Narrative Radiology Service Progress Note PATIENT NAME: Jaycee Reed DATE OF SERVICE: November 26, 2024 TIME: 2:51 PM PATIENT IDENTITY VERIFICATION COMPLETED USING TWO (2) IDENTIFIERS: Name and Date of confirmed by patient verbally. FALL SCREENING: Has the patient had 2 falls in the last year or 1 fall with injury or currently using an Ambulatory Assistive Device (Walker, Cane, Wheelchair, Crutches, etc.)? No PATIENT GENDER DATA: Female. status: : No status: NO. PATIENT RELEVANT IMPLANT DATA REVIEWED: Not Applicable PATIENT PRESENTS WITH AN IMPLANTABLE OR ATTACHED GALLERY OR MUSEUM GUIDE: No RADIOLOGY DEPARTMENT: Mammography PERIPHERAL IV DATA: Not applicable SIGNED BY: RT Zina(R) November 26, 2024 2:51 PM documented in this encounter [facility] 11-26-2024 Note HNO ID: [id number] Author: JAYLA IRIZARRY RT(R) Service: ? Author Type: Technologist Type: Progress Notes Filed: 11/26/2024 14:51 Note Text: Radiology Service Progress Note PATIENT NAME: Jaycee Reed DATE OF SERVICE: November 26, 2024 TIME: 2:51 PM PATIENT IDENTITY VERIFICATION COMPLETED USING TWO (2) IDENTIFIERS: Name and Date of confirmed by patient verbally. FALL SCREENING: Has the patient had 2 falls in the last year or 1 fall with injury or currently using an Ambulatory Assistive Device (Walker, Cane, Wheelchair, Crutches, etc.)? No PATIENT GENDER DATA: Female. status: : No status: NO. PATIENT RELEVANT IMPLANT DATA REVIEWED: Not Applicable PATIENT PRESENTS WITH AN IMPLANTABLE OR ATTACHED GALLERY OR MUSEUM GUIDE: No RADIOLOGY DEPARTMENT: Mammography PERIPHERAL IV DATA: Not applicable SIGNED BY: RT Zina(R) November 26, 2024 2:51 PM [facility] 10-24-2024 Telephone encounter Note Called and notified patient.Transferred to breast imaging scheduling dept. Brenda Mccormack RN [facility] 10-24-2024 Miscellaneous Notes Called and notified patient.Transferred to breast imaging scheduling dept. Brenda Mccormack RN Left message for patient to call office or check mychart message. Brenda Mccormack RN documented in this encounter [facility] 10-23-2024 Telephone encounter Note Left message for patient to call office or check mychart message. Brenda Mccormack RN [facility] 10-22-2024 History of Present illness Narrative Radiology Service Progress Note PATIENT NAME: Jaycee Reed DATE OF SERVICE: October 22, 2024 TIME: 2:42 PM PATIENT IDENTITY VERIFICATION COMPLETED USING TWO (2) IDENTIFIERS: Name and Date of confirmed by patient verbally. FALL SCREENING: Has the patient had 2 falls in the last year or 1 fall with injury or currently using an Ambulatory Assistive Device (Walker, Cane, Wheelchair, Crutches, etc.)? No PATIENT GENDER DATA: Female. status: : No status: NO. PATIENT RELEVANT IMPLANT DATA REVIEWED: Not Applicable PATIENT PRESENTS WITH AN IMPLANTABLE OR ATTACHED GALLERY OR MUSEUM GUIDE: No RADIOLOGY DEPARTMENT: Mammography PERIPHERAL IV DATA: Not applicable SIGNED BY: Gregory Mckeon October 22, 2024 2:42 PM documented in this encounter [facility] 10-22-2024 Note HNO ID: [id number] Author: ISMAEL SHAIKH Mammo Tech Service: ? Author Type: Technologist Type: Progress Notes Filed: 10/22/2024 14:43 Note Text: Radiology Service Progress Note PATIENT NAME: Jaycee Reed DATE OF SERVICE: October 22, 2024 TIME: 2:42 PM PATIENT IDENTITY VERIFICATION COMPLETED USING TWO (2) IDENTIFIERS: Name and Date of confirmed by patient verbally. FALL SCREENING: Has the patient had 2 falls in the last year or 1 fall with injury or currently using an Ambulatory Assistive Device (Walker, Cane, Wheelchair, Crutches, etc.)? No PATIENT GENDER DATA: Female. status: : No status: NO. PATIENT RELEVANT IMPLANT DATA REVIEWED: Not Applicable PATIENT PRESENTS WITH AN IMPLANTABLE OR ATTACHED GALLERY OR MUSEUM GUIDE: No RADIOLOGY DEPARTMENT: Mammography PERIPHERAL IV DATA: Not applicable SIGNED BY: Ismael Shaikh [facility] October 22, 2024 2:42 PM [facility] 10-09-2024 Telephone encounter Note Pt notified. Rober Urrutia RN [facility] 10-09-2024 Miscellaneous Notes Pt notified. Rober Urrutia RN documented in this encounter [facility] 10-08-2024 Instructions Aurelia Borges APRN.[employer] - 10/08/2024 2:52 PM EST A 3-dose schedule is recommended for people who get the first dose on or after their 15th birthday, and for people with certain immunocompromising conditions. In a 3-dose series, the second dose should be given 1-2 months after the first dose, and the third dose should be given 6 months after the first dose (0, 1-2, 6-month schedule). The minimum intervals are 4 weeks between the first and second dose, 12 weeks between the second and third doses, and 5 months between the first and third doses. If a vaccine dose is administered after a shorter interval, it should be re-administered after another minimum interval has elapsed since the most recent dose. If the vaccination schedule is interrupted, vaccine doses do not need to be repeated (no maximum interval). Calcium and Vitamin D Supplementation (from the National Institutes of Health Office of Dietary Supplements 2011) Calcium is required by the body for blood vessel, muscle, hormone and nerve functioning. Most of the body's calcium is stored in the bones and teeth where it supports structure and function. Bone is continuously broken down and reformed. When bone breakdown exceeds formation, especially in postmenopausal women, bone loss can increase the risk of osteoporosis and fractures. In addition to low calcium intake, women who smoke, have a family history of osteoporosis, are thin, or , or who take certain medications such as cancer chemotherapy, seizure mediations and steroids are at increased risk of osteoporosis. The calcium requirements in women change with age. The National Institutes of Health (NIH) recommends: 1000mg elemental calcium for premenopausal women age 19-50 1200mg elemental calcium for postmenopausal women and all women over 50 Milk, yogurt, and cheese are rich natural sources of calcium and are the major food contributors in the [place]. For example, 8oz of milk (whole, lowfat or skim) contains about 300mg calcium, 8oz of yogurt contains 415mg. Nondairy sources include salmon and sardines and vegetables, such as Sami cabbage, kale, and broccoli. Foods fortified with calcium include many fruit juices, tofu and cereals. For more food calcium content information, visit http://ods.od.nih.gov/factsheets/c alcium. Calcium supplements come in several different forms. Remember that the recommendations are for millgrams (mg) of elemental calcium which may be less than the total weight of the supplement. The amount of elemental calcium is required to be printed on the label. Calcium carbonate is the least expensive form. It must be taken on a full stomach to be properly absorbed. Some patients may experience gas or constipation. Calcium phosphate and calcium citrate may be taken either with or without food and tend to have less side effects but are generally more expensive. Because of its ability to neutralize stomach acid, calcium carbonate is found in some [id number] antacid products, such as Tums and Rolaids . Depending on its strength, each chewable pill or softchew provides 200 to 400 mg of elemental calcium. The percentage of calcium absorbed depends on the total amount of elemental calcium consumed at one time. Absorption is highest in doses <500mg. So a woman who takes 1,000mg/day of calcium from supplements should split the dose and take 500mg at two separate times during the day. Too much calcium can cause kidney stones, constipation, difficulty absorbing other nutrients and calcium buildup in blood vessels. Women under 50 should not exceed 2500mg/day (2000mg/day for women over 50) of calcium from food and supplements. Excessive alcohol and caffeine intake can inhibit absorption of calcium. Calcium can reduce the absorption of some medications if taken at the same time of day (bisphosphonates, thyroid medication, Phenytoin and other seizure medications, some antibiotics and iron supplements). Vitamin D promotes calcium absorption in the gut and maintains adequate blood levels of calcium and phosphate for normal bone growth and bone remodeling. Vitamin D also helps regulate cell growth as well as nerve, muscle and immune system function. Vitamin D is produced in the skin as a result of ultraviolet sunlight rays and must be altered in the liver and kidney to become its active form. Recommended intake according to the National Institutes of Health is 600 International Units (IU) for girls and women ages 1-70 and 800 IU for women over 70. Very few foods in nature contain vitamin D. The flesh of fatty fish (such as salmon, tuna, and mackerel) and fish liver oils are among the best sources. Small amounts of vitamin D are found in beef liver, cheese, mushrooms and egg yolks. Most people meet at least some of their vitamin D needs through exposure to sunlight. Season, time of day, length of day, cloud cover, smog, skin melanin content, and sunscreen are among the factors that affect UV radiation exposure and vitamin D synthesis. Despite the importance of the sun for vitamin D synthesis, it is prudent to limit exposure of skin to sunlight and avoid tanning beds. UV radiation is a carcinogen responsible for most of the estimated 1.5 million skin cancers that occur annually in the [place]. Lifetime cumulative UV damage to skin is also responsible for some age-associated dryness and other cosmetic changes. In supplements and fortified foods, vitamin D is available in two forms, D2 (ergocalciferol) and D3 (cholecalciferol). The two are equivalent at normal supplement doses. For women who require high supplement doses because of vitamin D deficiency, D3 may work better to raise blood levels. Some medications can prevent proper absorption of Vitamin D. These include laxatives, corticosteroids like prednisone, the seizure drugs phenobarbital and phenytoin, the weight-loss drug orlistat ( Xenical and AlliTM) and the cholesterol-lowering drug cholestyramine (Questran , LoCholest , and Prevalite ). Talk to your doctor about adjusting your recommended daily vitamin D dosage if you take these medications. You should not exceed 4000 mg of vitamin D supplementation daily unless specifically prescribed by your doctor. documented in this encounter [facility] 10-08-2024 Note HNO ID: [id number] Author: AURELIA BORGES APRN.CNP Service: ? Author Type: Nurse Practitioner Type: Progress Notes Filed: 10/08/2024 15:13 Note Text: Ecotherapist offered: Patient declinesJonathan Rooney is a 44 year old who presents for an annual gynecologic exam with complaints, vaginal irritation . She recently took an antibiotic for pneumonia. Menses: cycles monthly, lasting 4-5 days. One episode of bleeding between cycles. Contraception: tubal sterilization HPV vaccine: No Last Pap: 10/02/2023 normal HPV: 09/26/2023 negative History of abnormal pap: Yes, follow up normal Last mammogram: 2023 abnormal, breast biopsy and excision Sexually active: Yes Patient concerns for STD exposure: No. Pain with intercourse: No Postcoital bleeding: No OB History T1 L2 SAB1 IAB0 Ectopic0 Multiple0 Live Births2 Respiratory Coordinator History LMP: 09/23/2024 (Approximate), Having periods Age at Menarche: Age at First : Age at Menopause: Respiratory Coordinator History Comments: Sexual Activity: Yes; Male Contraception: Tubal Ligation PAST MEDICAL HISTORY Diagnosis Date Constipation Hypoglycemia Hypotension Kidney stones 11/19/2007 PAST SURGICAL HISTORY Procedure Laterality Date BX OF BREAST; INCISIONAL Right 01/21/2024 DILATION AND CURETTAGE DXAND/THER NONOBSTETRIC 2008 PAST SURGICAL HISTORY OF 2011 wisdom teeth ext TONSILLECTOMY PRIMARY/SECONDARY Tonsillectomy TUBAL LIGATION HX 03/22/2017 LAPAROSCOPIC LIGATION TUBAL FILSHIE CLIPS FAMILY HISTORY Problem Relation Age of Onset No Known Problems Mother other (arthiritis) Father No Known Problems Sister other (heart murmer) Brother Heart Brother Cancer Maternal Grandfather 55 stomach Lung Cancer Paternal Grandfather Asthma Son Breast Cancer Paternal cousin 33 first cousin once removed; BRCA2 positive, but inherited from opposite side of family from patient Ovarian cancer Paternal great-grandmother Cervical Cancer Other paternal cousin SOCIAL HISTORY Social History Tobacco Use Smoking status: Former Current packs/day: 0.00 Types: Cigarettes Quit date: 07/20/2009 Years since quittin.2 Smokeless tobacco: Never Vaping Use Vaping status: Never Used Substance Use Topics Alcohol use: Yes Comment: Seldom, NOT WHILE Drug use: No REVIEW OF SYSTEMS Abdomen: + bowel changes with antibiotic use, + chronic constipation Bladder: No dysuria, gross hematuria, urinary frequency, urinary urgency, or incontinence. Breast: No breast lumps, nipple d/c, overlying skin changes, redness or skin retraction. Allergies and current medication updated:Yes SENSITIVE EXAM: The sensitive examination was discussed with the Patient or Patient's Authorized [place]. As applicable, any other physician, advance practice provider, medical student, or other health professional student that will be observing or involved in the sensitive examination for educational or training purposes was discussed with the Patient or Authorized [place] W[place]. The Patient or Authorized [place] Warden has agreed to proceed with the sensitive examination. (Sensitive examination includes inspection and/or palpation of the breasts, pelvis, prostate and anorectal regions). EXAM: BP 112/68 Ht 5' 4.5 (1.64m) Wt 124 lb 12.8 oz (56.6kg) LMP 09/23/2024 BMI 21.10 kg/(m2). GENERAL: pleasant, female in no apparent distress HEENT: Normocephalic, atraumatic, mucus membranes moist, and no lesions NECK: Supple, full range of motion, no adenopathy, and thyroid normal DERMATOLOGY: Normal, without lesions, non-icteric, and non-hirsute BREAST: soft, non-tender, symmetric, no dominant mass, normal nipple-areolar complex, no lymphadenopathy, and no nipple discharge + scar tissue noted to right breast CHEST: Normal inspiratory effort ABDOMEN: soft, non-tender, and no masses PELVIC: external genitalia normal, normal Bartholin's glands, urethra, [place]'s glands, no vulvar lesions, no cervical lesions, good vaginal support, + thick white discharge, normal appearing perineal body and perianal region BIMANUAL: uterus normal size, shape and consistency, no adnexal masses, and non-tender RECTOVAGINAL: deferred. NEURO: alert and oriented x3,exam grossly non-focal EXTREMITIES: normal ASSESSMENT/PLAN: 1) Health maintenance: Pap/HPV up to date 2022. Deferred until 2027. Mammogram ordered. Nutrition, exercise and routine health maintenance exams reviewed. Calcium/Vitamin D supplementation information provided. Lipids/glucose: followed by PCP HPV vaccine: interested, literature given 2) Contraception: tubal sterilization. 3) STD screening: Declined STD check. 4) Follow up one year or sooner as needed Vaginal discharge - ICD9: 623.5, ICD10: N89.8 Vaginal itching - ICD9: 698.1, ICD10: N89.8 - BACTERIAL VAGINOSIS NAAT - STACI/TRICHOMONAS NAAT - Continue women's health probiotic Consider (more content not included)... [facility] 10-08-2024 History of Present illness Narrative Ecotherapist offered: Patient declines. Jaycee is a 44 year old who presents for an annual gynecologic exam with complaints, vaginal irritation . She recently took an antibiotic for pneumonia. Menses: cycles monthly, lasting 4-5 days. One episode of bleeding between cycles. Contraception: tubal sterilization HPV vaccine: No Last Pap: 10/02/2023 normal HPV: 09/26/2023 negative History of abnormal pap: Yes, follow up normal Last mammogram: 2023 abnormal, breast biopsy and excision Sexually active: Yes Patient concerns for STD exposure: No. Pain with intercourse: No Postcoital bleeding: No OB History T1 L2 SAB1 IAB0 Ectopic0 Multiple0 Live Births2 Respiratory Coordinator History LMP: 09/23/2024 (Approximate), Having periods Age at Menarche: Age at First : Age at Menopause: Respiratory Coordinator History Comments: Sexual Activity: Yes; Male Contraception: Tubal Ligation PAST MEDICAL HISTORY Diagnosis Date Constipation Hypoglycemia Hypotension Kidney stones 11/19/2007 PAST SURGICAL HISTORY Procedure Laterality Date BX OF BREAST; INCISIONAL Right 01/21/2024 DILATION & CURETTAGE DX&/THER NONOBSTETRIC 2008 SAB PAST SURGICAL HISTORY OF 2011 wisdom teeth ext TONSILLECTOMY PRIMARY/SECONDARY <AGE 12 Tonsillectomy TUBAL LIGATION HX 03/22/2017 LAPAROSCOPIC LIGATION TUBAL FILSHIE CLIPS FAMILY HISTORY Problem Relation Age of Onset No Known Problems Mother other (arthiritis) Father No Known Problems Sister other (heart murmer) Brother Heart Brother Cancer Maternal Grandfather 55 stomach Lung Cancer Paternal Grandfather Asthma Son Breast Cancer Paternal cousin 33 first cousin once removed; BRCA2 positive, but inherited from opposite side of family from patient Ovarian cancer Paternal great-grandmother Cervical Cancer Other paternal cousin SOCIAL HISTORY Social History Tobacco Use Smoking status: Former Current packs/day: 0.00 Types: Cigarettes Quit date: 07/20/2009 Years since quittin.2 Smokeless tobacco: Never Vaping Use Vaping status: Never Used Substance Use Topics Alcohol use: Yes Comment: Seldom, NOT WHILE Drug use: No REVIEW OF SYSTEMS Abdomen: + bowel changes with antibiotic use, + chronic constipation Bladder: No dysuria, gross hematuria, urinary frequency, urinary urgency, or incontinence. Breast: No breast lumps, nipple d/c, overlying skin changes, redness or skin retraction. Allergies and current medication updated:Yes SENSITIVE EXAM: The sensitive examination was discussed with the Patient or Patient's Authorized [place]. As applicable, any other physician, advance practice provider, medical student, or other health professional student that will be observing or involved in the sensitive examination for educational or training purposes was discussed with the Patient or Authorized [place] W[place]. The Patient or Authorized [place] Warden has agreed to proceed with the sensitive examination. (Sensitive examination includes inspection and/or palpation of the breasts, pelvis, prostate and anorectal regions). EXAM: BP 112/68 Ht 5' 4.5 (1.64m) Wt 124 lb 12.8 oz (56.6kg) LMP 09/23/2024 BMI 21.10 kg/(m^2). GENERAL: pleasant, female in no apparent distress HEENT: Normocephalic, atraumatic, mucus membranes moist, and no lesions NECK: Supple, full range of motion, no adenopathy, and thyroid normal DERMATOLOGY: Normal, without lesions, non-icteric, and non-hirsute BREAST: soft, non-tender, symmetric, no dominant mass, normal nipple-areolar complex, no lymphadenopathy, and no nipple discharge + scar tissue noted to right breast CHEST: Normal inspiratory effort ABDOMEN: soft, non-tender, and no masses PELVIC: external genitalia normal, normal Bartholin's glands, urethra, [place]'s glands, no vulvar lesions, no cervical lesions, good vaginal support, + thick white discharge, normal appearing perineal body and perianal region BIMANUAL: uterus normal size, shape and consistency, no adnexal masses, and non-tender RECTOVAGINAL: deferred. NEURO: alert and oriented x3,exam grossly non-focal EXTREMITIES: normal ASSESSMENT/PLAN: 1) Health maintenance: Pap/HPV up to date 2022. Deferred until 2027. Mammogram ordered. Nutrition, exercise and routine health maintenance exams reviewed. Calcium/Vitamin D supplementation information provided. Lipids/glucose: followed by PCP HPV vaccine: interested, literature given 2) Contraception: tubal sterilization. 3) STD screening: Declined STD check. 4) Follow up one year or sooner as needed Vaginal discharge - ICD9: 623.5, ICD10: N89.8 Vaginal itching - ICD9: 698.1, ICD10: N89.8 - BACTERIAL VAGINOSIS NAAT - STACI/TRICHOMONAS NAAT - Continue women's health probiotic Consider pelvic ultrasound for constipation. Patient reports ultrasound in ER normal July 2024. To notify with any further irregular bleeding. Aurelia Borges APRN.SOLDERER BARREL RIBS documented in this encounter [facility] 09-26-2024 Note HNO ID: [id number] Author: VERONICA BRASWELL APRN.SOLDERER BARREL RIBS Service: ? Author Type: Nurse Practitioner Type: Progress Notes Filed: 09/26/2024 09:21 Note Text: This note was created using NoteWriter. Subjective Jaycee Reed is a 44 year old female. 44 year old female with no significant PMH presents for illness. 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 No translator/interpreter was used. URI There is no chest tightness, cough, difficulty breathing, frequent throat clearing, hemoptysis, hoarse voice, shortness of breath, sputum production or wheezing. This is a new problem. The current episode started yesterday. The problem occurs constantly. The problem has been unchanged. Associated symptoms include headaches, malaise/fatigue, myalgias, nasal congestion, postnasal drip, rhinorrhea and a sore throat. Pertinent negatives include no appetite change, chest pain, dyspnea on exertion, ear congestion, ear pain, fever, heartburn, orthopnea, PND, sneezing, sweats, trouble swallowing or weight loss. Her symptoms are aggravated by nothing. Her symptoms are alleviated by nothing. She reports no improvement on treatment. There are no known risk factors for lung disease. There is no history of asthma, bronchiectasis, bronchitis, COPD, emphysema or pneumonia. PAST MEDICAL HISTORY Diagnosis Date Constipation Hypoglycemia Hypotension Kidney stones 11/19/2007 PAST SURGICAL HISTORY Procedure Laterality Date BX OF BREAST; INCISIONAL Right 01/21/2024 DILATION AND CURETTAGE DXAND/THER NONOBSTETRIC 2008 SAB PAST SURGICAL HISTORY OF 2011 wisdom teeth ext TONSILLECTOMY PRIMARY/SECONDARY Tonsillectomy TUBAL LIGATION HX 03/22/2017 LAPAROSCOPIC LIGATION TUBAL FILSHIE CLIPS ALLERGIES Codeine, Latex, and Nickel MEDICATIONS fluticasone (FLONASE) 50 mcg/actuation nasal spray Use 2 Sprays in each nostril once daily. Lactobacillus acidophilus (PROBIOTIC) 10 billion cell cap Take by mouth once daily. MEDICATION, NON-DATABASE 2 capsules once daily. BIO CLEANSE SUPPLEMENT WITH MAGNESIUM FAMILY HISTORY Problem Relation Age of Onset No Known Problems Mother other (arthiritis) Father No Known Problems Sister other (heart murmer) Brother Heart Brother Cancer Maternal Grandfather 55 stomach Lung Cancer Paternal Grandfather Asthma Son Breast Cancer Paternal cousin 33 first cousin once removed; BRCA2 positive, but inherited from opposite side of family from patient Ovarian cancer Paternal great-grandmother Cervical Cancer Other paternal cousin Social History Tobacco Use Smoking status: Former Current packs/day: 0.00 Types: Cigarettes Quit date: 07/20/2009 Years since quittin.1 Smokeless tobacco: Never Vaping Use Vaping status: Never Used Substance Use Topics Alcohol use: Yes Comment: Seldom, NOT WHILE Drug use: No Review of Systems Constitutional: Positive for malaise/fatigue. Negative for appetite change, fever and weight loss. HENT: Positive for congestion, postnasal drip, rhinorrhea and sore throat. Negative for ear pain, hoarse voice, sneezing and trouble swallowing. Eyes: Negative for discharge and itching. Respiratory: Negative for apnea, cough, hemoptysis, sputum production, chest tightness, shortness of breath and wheezing. Cardiovascular: Negative for chest pain, dyspnea on exertion and PND. Gastrointestinal: Negative for abdominal pain, diarrhea, heartburn and nausea. Musculoskeletal: Positive for myalgias. Allergic/Immunologic: Positive for environmental allergies. Negative for food allergies and immunocompromised state. Neurological: Positive for headaches. Hematological: Negative for adenopathy. Does not bruise/bleed easily. Psychiatric/Behavioral: Negative for agitation and behavioral problems. Objective BP 110/72 Pulse 79 Temp 36.6 ?C (97.9 ?F) Resp 20 Wt 58 kg (127 lb 13.9 oz) LMP 09/20/2024 (Exact Date) SpO2 100% BMI 21.95 kg/m? Physical Exam Vitals and nursing note reviewed. Constitutional: General: She is not in acute distress. Appearance: Normal appearance. She is normal weight. She is not ill-appearing, toxic-appearing or diaphoretic. HENT: Head: Normocephalic and atraumatic. Right Ear: Ear canal and external ear normal. Left Ear: Ear canal and external ear normal. Nose: Rhinorrhea present. No congestion. Mouth/Throat: Mouth: Mucous membranes are moist. Pharynx: Posterior oropharyngeal erythema present. No oropharyngeal exudate. Comments: Tonsils surgically absent Eyes: General: Right eye: No discharge. Left eye: No discharge. Extraocular Movements: Extraocular (more content not included)... [facility] 09-26-2024 History of Present illness Narrative This note was created using indicoriter. Subjective Jaycee Reed is a 44 year old female. 44 year old female with no significant PMH presents for illness. Acute onset yesterday Around 1330 getting off work, citing she works at [employer] in [employer] +sore throat +headache +post nasal drainage + congestion +body aches +chills +fatigue Denies cough Denies SOB or dyspnea Denies fever Denies eye or ear complaints Home COVID negative The history is provided by the patient. No translator/interpreter was used. URI There is no chest tightness, cough, difficulty breathing, frequent throat clearing, hemoptysis, hoarse voice, shortness of breath, sputum production or wheezing. This is a new problem. The current episode started yesterday. The problem occurs constantly. The problem has been unchanged. Associated symptoms include headaches, malaise/fatigue, myalgias, nasal congestion, postnasal drip, rhinorrhea and a sore throat. Pertinent negatives include no appetite change, chest pain, dyspnea on exertion, ear congestion, ear pain, fever, heartburn, orthopnea, PND, sneezing, sweats, trouble swallowing or weight loss. Her symptoms are aggravated by nothing. Her symptoms are alleviated by nothing. She reports no improvement on treatment. There are no known risk factors for lung disease. There is no history of asthma, bronchiectasis, bronchitis, COPD, emphysema or pneumonia. PAST MEDICAL HISTORY Diagnosis Date Constipation Hypoglycemia Hypotension Kidney stones 11/19/2007 PAST SURGICAL HISTORY Procedure Laterality Date BX OF BREAST; INCISIONAL Right 01/21/2024 DILATION & CURETTAGE DX&/THER NONOBSTETRIC 2008 SAB PAST SURGICAL HISTORY OF 2012 wisdom teeth ext TONSILLECTOMY PRIMARY/SECONDARY <AGE 12 Tonsillectomy TUBAL LIGATION HX 03/22/2017 LAPAROSCOPIC LIGATION TUBAL FILSHIE CLIPS ALLERGIES Codeine, Latex, and Nickel MEDICATIONS fluticasone (FLONASE) 50 mcg/actuation nasal spray Use 2 Sprays in each nostril once daily. Lactobacillus acidophilus (PROBIOTIC) 10 billion cell cap Take by mouth once daily. MEDICATION, NON-DATABASE 2 capsules once daily. BIO CLEANSE SUPPLEMENT WITH MAGNESIUM FAMILY HISTORY Problem Relation Age of Onset No Known Problems Mother other (arthiritis) Father No Known Problems Sister other (heart murmer) Brother Heart Brother Cancer Maternal Grandfather 55 stomach Lung Cancer Paternal Grandfather Asthma Son Breast Cancer Paternal cousin 33 first cousin once removed; BRCA2 positive, but inherited from opposite side of family from patient Ovarian cancer Paternal great-grandmother Cervical Cancer Other paternal cousin Social History Tobacco Use Smoking status: Former Current packs/day: 0.00 Types: Cigarettes Quit date: 07/20/2009 Years since quittin.1 Smokeless tobacco: Never Vaping Use Vaping status: Never Used Substance Use Topics Alcohol use: Yes Comment: Seldom, NOT WHILE Drug use: No Review of Systems Constitutional: Positive for malaise/fatigue. Negative for appetite change, fever and weight loss. HENT: Positive for congestion, postnasal drip, rhinorrhea and sore throat. Negative for ear pain, hoarse voice, sneezing and trouble swallowing. Eyes: Negative for discharge and itching. Respiratory: Negative for apnea, cough, hemoptysis, sputum production, chest tightness, shortness of breath and wheezing. Cardiovascular: Negative for chest pain, dyspnea on exertion and PND. Gastrointestinal: Negative for abdominal pain, diarrhea, heartburn and nausea. Musculoskeletal: Positive for myalgias. Allergic/Immunologic: Positive for environmental allergies. Negative for food allergies and immunocompromised state. Neurological: Positive for headaches. Hematological: Negative for adenopathy. Does not bruise/bleed easily. Psychiatric/Behavioral: Negative for agitation and behavioral problems. Objective BP 110/72 Pulse 79 Temp 36.6 C (97.9 F) Resp 20 Wt 58 kg (127 lb 13.9 oz) LMP 09/20/2024 (Exact Date) SpO2 100% BMI 21.95 kg/m Physical Exam Vitals and nursing note reviewed. Constitutional: General: She is not in acute distress. Appearance: Normal appearance. She is normal weight. She is not ill-appearing, toxic-appearing or diaphoretic. HENT: Head: Normocephalic and atraumatic. Right Ear: Ear canal and external ear normal. Left Ear: Ear canal and external ear normal. Nose: Rhinorrhea present. No congestion. Mouth/Throat: Mouth: Mucous membranes are moist. Pharynx: Posterior oropharyngeal erythema present. No oropharyngeal exudate. Comments: Tonsils surgically absent Eyes: General: Right eye: No discharge. Left [...] Skin: General: Skin is warm and dry. Coloration: Skin is not jaundiced or pale. [...] Judgment normal. Assessment and Plan ASSESSMENT/PLAN: 1. Pharyngitis, unspecified etiology - ICD9: 462, ICD10: J02.9 (primary diagnosis) - Group A strep molecular testing negative - Discussed supportive care treatment with fluids, rest and analgesia. - The patient may also use OTC cough and cold meds as needed and warm salt water gargles, throat lozenges and/or OTC throat spray as needed. - Contagious dz precautions discussed- including considered contagious until on antibiotics for 24 hours - The patient should follow up in 3-5 days if symptoms persist or worsen - Call back if drooling, increased temperature, symptoms of dehydration and/or still sick in one week - STREP A MOLECULAR (POC)-NEGATIVE 2. Viral illness - ICD9: 079.99, ICD10: B34.9 X 1 day - Discussed viral etiology and rationale for treatment. - Group A strep molecular testing negative - Symptomatic treatment with prn analgesia - Supportive care with fluids and rest - The patient may also use OTC cough and cold meds as needed and warm salt water gargles, throat lozenges and/or OTC throat spray as needed. - Follow up in 3-5 days if symptoms persist or sooner if worsening of symptoms DECLINES COVID / FLU TESTING Veronica Braswell APRN.[employer]BS documented in this encounter [facility] 08-04-2024 Note HNO ID: [id number] Author: ANURADHA KRISHNAN APRN.STEPHEN Service: ? Author Type: Nurse Practitioner Type: Progress Notes Filed: 08/04/2024 14:56 Note Text: Ecotherapist offered: Patient declines. Jaycee Reed is a 44 year old female who presents for unusual vaginal bleeding. HPI: Jaycee presents for unusual vaginal bleeding. She noticed the bleeding last night and was seen in the ER this morning 08/04/2024, they did a pelvic ultrasound. The ER doctor stated that it could be fibroids and to follow up with her doctor. Sunday night she had intercourse and that was painful she states, she is afraid something got irritated or small tears. Last week she was here for a yeast infection and was put on Monistat for three days and she is also unsure if that irritated something as well. Periods regular flow lasting 5 days Bloating x 1 yr Bleeding since last night, not due for a period until the end of the month OB History T1 L2 SAB1 IAB0 Ectopic0 Multiple0 Live Births2 Respiratory Coordinator History LMP: 07/19/2024 (Approximate), Having periods Age at Menarche: Age at First : Age at Menopause: Respiratory Coordinator History Comments: Sexual Activity: Yes; Male Contraception: Tubal Ligation PAST MEDICAL HISTORY Diagnosis Date Constipation Hypoglycemia Hypotension Kidney stones 11/19/2007 PAST SURGICAL HISTORY Procedure Laterality Date BX OF BREAST; INCISIONAL Right 01/21/2024 DILATION AND CURETTAGE DXAND/THER NONOBSTETRIC 2008 PAST SURGICAL HISTORY OF 2011 wisdom teeth ext TONSILLECTOMY PRIMARY/SECONDARY Tonsillectomy TUBAL LIGATION HX 03/22/2017 LAPAROSCOPIC LIGATION TUBAL FILSHIE CLIPS FAMILY HISTORY Problem Relation Age of Onset No Known Problems Mother other (arthiritis) Father No Known Problems Sister other (heart murmer) Brother Heart Brother Cancer Maternal Grandfather 55 stomach Lung Cancer Paternal Grandfather Asthma Son Breast Cancer Paternal cousin 33 first cousin once removed; BRCA2 positive, but inherited from opposite side of family from patient Ovarian cancer Paternal great-grandmother Cervical Cancer Other paternal cousin Social History Tobacco Use Smoking status: Former Current packs/day: 0.00 Types: Cigarettes Quit date: 07/20/2009 Years since quittin.0 Smokeless tobacco: Never Vaping Use Vaping status: Never Used Substance Use Topics Alcohol use: Yes Comment: Seldom, NOT WHILE Drug use: No Current Outpatient Medications Medication Sig fluticasone (FLONASE) 50 mcg/actuation nasal spray Use 2 Sprays in each nostril once daily. Lactobacillus acidophilus (PROBIOTIC) 10 billion cell cap Take by mouth once daily. MEDICATION, NON-DATABASE 2 capsules once daily. BIO CLEANSE SUPPLEMENT WITH MAGNESIUM SUDOGEST 60 mg tablet Take 60 mg by mouth. (Patient not taking: Reported on 08/04/2024) L.acidophilus-L.rhamnosus (FLORAJEN WOMEN) 15 billion cell capsule Take 1 capsule by mouth once daily. (Patient not taking: Reported on 07/24/2024) No current facility-administered medications for this visit. Allergies As of Date: 08/04/2024 Allergen Noted Reaction CODEINE 10/01/2008 Rash LATEX 02/13/2023 Rash NICKEL 11/07/2011 Rash Fully Assessed 08/04/2024 REVIEW OF SYSTEMS Abdomen: +bloating, pelvic pain Bladder: No dysuria, gross hematuria, urinary frequency, urinary urgency, or incontinence. Expanded ROS: N/A Allergies and current medication updated:Yes SENSITIVE EXAM: The sensitive examination was discussed with the Patient or Patient's Authorized Port Warden. As applicable, any other physician, advance practice provider, medical student, or other health professional student that will be observing or involved in the sensitive examination for educational or training purposes was discussed with the Patient or Authorized Port Warden. The Patient or Authorized Port Warden has agreed to proceed with the sensitive examination. (Sensitive examination includes inspection and/or palpation of the breasts, pelvis, prostate and anorectal regions). EXAM: BP 110/60 Wt 125 lb (56.7kg) LMP 07/19/2024 GENERAL: pleasant, female in no apparent distress HEENT: Normocephalic, atraumatic, mucus membranes moist, and no lesions CHEST: Normal inspiratory effort ABDOMEN: soft, no masses, and Mild tenderness in suprapubic area PELVIC: external genitalia normal, normal Bartholin's glands, urethra, [place]'s glands, no vulvar lesions, no cervical lesions, good vaginal support, physiologic discharge present, normal appearing perineal body and perianal region BIMANUAL: uterus normal size, shape and consistency, no adnexal masses, and Mild tenderness NEURO: alert and oriented x3,exam grossly non-focal EXTREMITIES: normal ASSESSMENT/PLAN: 1. Abnormal uterine bleeding (AUB) - ICD9: 626.9, ICD10: N93.9 (primary diagnosis) - CT ABD/PEL W IVCON - CREATININE BLD - IRON AND TIBC - Ayges (more content not included)... [facility] 08-04-2024 History of Present illness Narrative Ecotherapist offered: Patient declines. Jaycee Reed is a 44 year old female who presents for unusual vaginal bleeding. HPI: Jaycee presents for unusual vaginal bleeding. She noticed the bleeding last night and was seen in the ER this morning 08/04/2024, they did a pelvic ultrasound. The ER doctor stated that it could be fibroids and to follow up with her doctor. Sunday night she had intercourse and that was painful she states, she is afraid something got irritated or small tears. Last week she was here for a yeast infection and was put on Monistat for three days and she is also unsure if that irritated something as well. Periods regular flow lasting 5 days Bloating x 1 yr Bleeding since last night, not due for a period until the end of the month OB History T1 L2 SAB1 IAB0 Ectopic0 Multiple0 Live Births2 Respiratory Coordinator History LMP: 07/19/2024 (Approximate), Having periods Age at Menarche: Age at First : Age at Menopause: Respiratory Coordinator History Comments: Sexual Activity: Yes; Male Contraception: Tubal Ligation PAST MEDICAL HISTORY Diagnosis Date Constipation Hypoglycemia Hypotension Kidney stones 11/19/2007 PAST SURGICAL HISTORY Procedure Laterality Date BX OF BREAST; INCISIONAL Right 01/21/2024 DILATION & CURETTAGE DX&/THER NONOBSTETRIC 2008 SAB PAST SURGICAL HISTORY OF 2011 wisdom teeth ext TONSILLECTOMY PRIMARY/SECONDARY <AGE 13 Tonsillectomy TUBAL LIGATION HX 03/22/2017 LAPAROSCOPIC LIGATION TUBAL FILSHIE CLIPS FAMILY HISTORY Problem Relation Age of Onset No Known Problems Mother other (arthiritis) Father No Known Problems Sister other (heart murmer) Brother Heart Brother Cancer Maternal Grandfather 55 stomach Lung Cancer Paternal Grandfather Asthma Son Breast Cancer Paternal cousin 33 first cousin once removed; BRCA2 positive, but inherited from opposite side of family from patient Ovarian cancer Paternal great-grandmother Cervical Cancer Other paternal cousin Social History Tobacco Use Smoking status: Former Current packs/day: 0.00 Types: Cigarettes Quit date: 07/20/2009 Years since quittin.0 Smokeless tobacco: Never Vaping Use Vaping status: Never Used Substance Use Topics Alcohol use: Yes Comment: Seldom, NOT WHILE Drug use: No Current Outpatient Medications Medication Sig fluticasone (FLONASE) 50 mcg/actuation nasal spray Use 2 Sprays in each nostril once daily. Lactobacillus acidophilus (PROBIOTIC) 10 billion cell cap Take by mouth once daily. MEDICATION, NON-DATABASE 2 capsules once daily. BIO CLEANSE SUPPLEMENT WITH MAGNESIUM SUDOGEST 60 mg tablet Take 60 mg by mouth. (Patient not taking: Reported on 08/04/2024) L.acidophilus-L.rhamnosus (FLORAJEN WOMEN) 15 billion cell capsule Take 1 capsule by mouth once daily. (Patient not taking: Reported on 07/24/2024) No current facility-administered medications for this visit. Allergies As of Date: 08/04/2024 Allergen Noted Reaction CODEINE 10/01/2008 Rash LATEX 02/13/2023 Rash NICKEL 11/07/2011 Rash Fully Assessed 08/04/2024 REVIEW OF SYSTEMS Abdomen: +bloating, pelvic pain Bladder: No dysuria, gross hematuria, urinary frequency, urinary urgency, or incontinence. Expanded ROS: N/A Allergies and current medication updated:Yes SENSITIVE EXAM: The sensitive examination was discussed with the Patient or Patient's Authorized Port Warden. As applicable, any other physician, advance practice provider, medical student, or other health professional student that will be observing or involved in the sensitive examination for educational or training purposes was discussed with the Patient or Authorized Port Warden. The Patient or Authorized Port Warden has agreed to proceed with the sensitive examination. (Sensitive examination includes inspection and/or palpation of the breasts, pelvis, prostate and anorectal regions). EXAM: BP 110/60 Wt 125 lb (56.7kg) LMP 07/19/2024 GENERAL: pleasant, female in no apparent distress HEENT: Normocephalic, atraumatic, mucus membranes moist, and no lesions CHEST: Normal inspiratory effort ABDOMEN: soft, no masses, and Mild tenderness in suprapubic area PELVIC: external genitalia normal, normal Bartholin's glands, urethra, [place]'s glands, no vulvar lesions, no cervical lesions, good vaginal support, physiologic discharge present, normal appearing perineal body and perianal region BIMANUAL: uterus normal size, shape and consistency, no adnexal masses, and Mild tenderness NEURO: alert and oriented x3,exam grossly non-focal EXTREMITIES: normal ASSESSMENT/PLAN: 1. Abnormal uterine bleeding (AUB) - ICD9: 626.9, ICD10: N93.9 (primary diagnosis) - CT ABD/PEL W IVCON - CREATININE BLD - IRON AND TIBC - Aygestin taper ordered 2. Pre-procedural laboratory examination - ICD9: V72.63, ICD10: Z01.812 - CREATININE BLD 3. Vaginal irritation - ICD9: 623.9, ICD10: N89.8 - STACI/TRICHOMONAS NAAT - BACTERIAL VAGINOSIS NAAT - GONORRHEA/CHLAMYDIA NAAT Will notify patient of test results. Anuradha Krishnan APRN.STEPHEN Medical Decision Making: Problems: Moderate: New problem with uncertain prognosis Data: Unique test(s) ordered: 3+ Risk: Moderate: Drug management Medical Decision Making Level: 4 - Moderate documented in this encounter [facility] 08-03-2024 Telephone encounter Note Patient called requesting to speak with Pressure Test Operator partition notcher regarding vaginal bleeding and abdominal discomfort. Conferenced to Radha at [employer] [facility] [ ] to speak with provider partition notcher for Morenita Gagnon. [facility] 08-03-2024 Miscellaneous Notes Patient called requesting to speak with Pressure Test Operator partition notcher regarding vaginal bleeding and abdominal discomfort. Conferenced to Radha at [employer] [facility] [ ] to speak with provider partition notcher for Morenita Gagnon. documented in this encounter [facility] 07-25-2024 Telephone encounter Note Patient notified [facility] 07-25-2024 Miscellaneous Notes Patient notified documented in this encounter [facility] 07-24-2024 Note HNO ID: [id number] Author: LINDA MORELAND APRN.TAMRA Service: ? Author Type: [employer] Make Up Helper Type: Progress Notes Filed: 07/24/2024 14:37 Note Text: Ecotherapist offered: Patient declines. SUBJECTIVE: Jaycee Reed is an 44 year old woman who presents with vaginitis. Symptoms include none, local irritation, and vulvar itching. Onset of symptoms 5 day(s) ago, waxing and waning since. Positive for increased thick vaginal discharge. Concerned that she has a yeast or bacterial infection. Predisposing factors: increased exercise/ bike riding and seat is irritating. Hx of previous vaginitis: rare Sexually active: yes, single partner, No concern for STD Current Outpatient Medications on File Prior to Visit Medication Sig fluticasone (FLONASE) 50 mcg/actuation nasal spray Use 2 Sprays in each nostril once daily. SUDOGEST 60 mg tablet Take 60 mg by mouth. Lactobacillus acidophilus (PROBIOTIC) 10 billion cell cap Take by mouth once daily. MEDICATION, NON-DATABASE 2 capsules once daily. BIO CLEANSE SUPPLEMENT WITH MAGNESIUM L.acidophilus-L.rhamnosus (FLORAJEN WOMEN) 15 billion cell capsule Take 1 capsule by mouth once daily. (Patient not taking: Reported on 07/24/2024) No current facility-administered medications on file prior to visit. ALLERGIES Allergen Reactions Codeine Rash Latex Rash Nickel Rash Social History Tobacco Use Smoking status: Former Current packs/day: 0.00 Types: Cigarettes Quit date: 07/20/2009 Years since quittin.0 Smokeless tobacco: Never Vaping Use Vaping status: Never Used Substance Use Topics Alcohol use: Yes Comment: Seldom, NOT WHILE Drug use: No OBJECTIVE: BP 122/64 Wt 58.5 kg (129 lb) LMP 07/19/2024 (Approximate) BMI 22.14 kg/m? Pelvic: External genitalia Normal, and vagina normal., Bimanual exam normal., Positive findings: vaginal discharge - white and thick ASSESSMENT/PLAN: 1. Vaginal discharge - ICD9: 623.5, ICD10: N89.8 (primary diagnosis) 2. Acute vaginitis - ICD9: 616.10, ICD10: N76.0 - STACI/TRICHOMONAS NAAT - BACTERIAL VAGINOSIS NAAT - Reviewed vulvar hygiene- recommended cotton underwear and changing out of spandex/yoga pants - Continue daily probiotics - Will notify patient of results Linda More[place] APRN.CNM [facility] 07-24-2024 History of Present illness Narrative Ecotherapist offered: Patient declines. SUBJECTIVE: Jaycee Reed is an 44 year old woman who presents with vaginitis. Symptoms include none, local irritation, and vulvar itching. Onset of symptoms 5 day(s) ago, waxing and waning since. Positive for increased thick vaginal discharge. Concerned that she has a yeast or bacterial infection. Predisposing factors: increased exercise/ bike riding and seat is irritating. Hx of previous vaginitis: rare Sexually active: yes, single partner, No concern for STD Current Outpatient Medications on File Prior to Visit Medication Sig fluticasone (FLONASE) 50 mcg/actuation nasal spray Use 2 Sprays in each nostril once daily. SUDOGEST 60 mg tablet Take 60 mg by mouth. Lactobacillus acidophilus (PROBIOTIC) 10 billion cell cap Take by mouth once daily. MEDICATION, NON-DATABASE 2 capsules once daily. BIO CLEANSE SUPPLEMENT WITH MAGNESIUM L.acidophilus-L.rhamnosus (FLORAJEN WOMEN) 15 billion cell capsule Take 1 capsule by mouth once daily. (Patient not taking: Reported on 07/24/2024) No current facility-administered medications on file prior to visit. ALLERGIES Allergen Reactions Codeine Rash Latex Rash Nickel Rash Social History Tobacco Use Smoking status: Former Current packs/day: 0.00 Types: Cigarettes Quit date: 07/20/2009 Years since quittin.0 Smokeless tobacco: Never Vaping Use Vaping status: Never Used Substance Use Topics Alcohol use: Yes Comment: Seldom, NOT WHILE Drug use: No OBJECTIVE: BP 122/64 Wt 58.5 kg (129 lb) LMP 07/19/2024 (Approximate) BMI 22.14 kg/m Pelvic: External genitalia Normal, and vagina normal., Bimanual exam normal., Positive findings: vaginal discharge - white and thick ASSESSMENT/PLAN: 1. Vaginal discharge - ICD9: 623.5, ICD10: N89.8 (primary diagnosis) 2. Acute vaginitis - ICD9: 616.10, ICD10: N76.0 - STACI/TRICHOMONAS NAAT - BACTERIAL VAGINOSIS NAAT - Reviewed vulvar hygiene- recommended cotton underwear and changing out of spandex/yoga pants - Continue daily probiotics - Will notify patient of results Linda Moreland APRN.CNM documented in this encounter [facility] 04-29-2024 Note HNO ID: [id number] Author: NEREYDA RUFFIN MD Service: ? Author Type: Physician Type: Progress Notes Filed: 04/29/2024 11:58 Note Text: Jaycee Reed is a 43 year old female who presents for problem visit vaginal discharge for 2 days. HPI: Recently returned from [place]. Having some irritation and discharge consistent with BV OB History T1 L2 SAB1 IAB0 Ectopic0 Multiple0 Live Births2 Respiratory Coordinator History LMP: 01/05/2024, Having periods Age at Menarche: Age at First : Age at Menopause: Respiratory Coordinator History Comments: Sexual Activity: Yes; Male Contraception: Tubal Ligation PAST MEDICAL HISTORY Diagnosis Date Constipation Hypoglycemia Hypotension Kidney stones 11/19/2007 PAST SURGICAL HISTORY Procedure Laterality Date BX OF BREAST; INCISIONAL Right 01/21/2024 DILATION AND CURETTAGE DXAND/THER NONOBSTETRIC 2008 SAB PAST SURGICAL HISTORY OF 2011 wisdom teeth ext TONSILLECTOMY PRIMARY/SECONDARY Tonsillectomy TUBAL LIGATION HX 03/22/2017 LAPAROSCOPIC LIGATION TUBAL FILSHIE CLIPS FAMILY HISTORY Problem Relation Age of Onset No Known Problems Mother other (arthiritis) Father No Known Problems Sister other (heart murmer) Brother Heart Brother Cancer Maternal Grandfather 55 stomach Lung Cancer Paternal Grandfather Asthma Son Breast Cancer Paternal cousin 33 first cousin once removed; BRCA2 positive, but inherited from opposite side of family from patient Ovarian cancer Paternal great-grandmother Cervical Cancer Other paternal cousin Social History Tobacco Use Smoking status: Former Packs/day: .5 Types: Cigarettes Quit date: 07/20/2009 Years since quittin.7 Smokeless tobacco: Never Vaping Use Vaping Use: Never used Substance Use Topics Alcohol use: Yes Comment: Seldom, NOT WHILE Drug use: No Current Outpatient Medications Medication Sig L.acidophilus-L.rhamnosus (FLORAJEN WOMEN) 15 billion cell capsule Take 1 capsule by mouth once daily. MEDICATION, NON-DATABASE 2 capsules once daily. BIO CLEANSE SUPPLEMENT WITH MAGNESIUM Lactobacillus acidophilus (PROBIOTIC) 10 billion cell cap Take by mouth once daily. (Patient not taking: Reported on 01/30/2024) No current facility-administered medications for this visit. Allergies As of Date: 04/29/2024 Allergen Noted Reaction CODEINE 10/01/2008 Rash LATEX 02/13/2023 Rash NICKEL 11/07/2011 Rash Fully Assessed 04/29/2024 REVIEW OF SYSTEMS Abdomen: No bloating, early satiety, indigestion, or increased flatulence. No abdominal pain, nausea, vomiting, diarrhea, or constipation. Bladder: No dysuria, gross hematuria, urinary frequency, urinary urgency, or incontinence. Breast: No breast lumps, nipple d/c, overlying skin changes, redness or skin retraction. 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: Positive for abnormal vaginal discharge and vaginal itching Allergies and current medication updated:Yes EXAM: BP 114/66 Wt 126 lb (57.2kg) LMP 01/05/2024 GENERAL: pleasant, female in no apparent distress HEENT: Normocephalic, atraumatic, mucus membranes moist, and no lesions NECK: Supple, full range of motion, no adenopathy, and thyroid normal DERMATOLOGY: Normal, without lesions, non-icteric, and non-hirsute BREAST: deferred CHEST: Normal inspiratory effort ABDOMEN: Deferred PELVIC: external genitalia normal, normal Bartholin's glands, urethra, [place]'s glands, no vulvar lesions, no cervical lesions, good vaginal support, physiologic discharge present, normal appearing perineal body and perianal region, scant discharge BIMANUAL: deferred NEURO: alert and oriented x3,exam grossly non-focal EXTREMITIES: normal ASSESSMENT AND PLAN: Encounter Diagnosis ICD-10-CM 1. Vaginal discharge N89.8 BACTERIAL VAGINOSIS NAAT STACI/TRICHOMONAS NAAT Will call with results would rather have natural treatment Nereyda Ruffin MD [facility] 04-29-2024 History of Present illness Narrative Jaycee Reed is a 43 year old female who presents for problem visit vaginal discharge for 2 days. HPI: Recently returned from [place]. Having some irritation and discharge consistent with BV OB History T1 L2 SAB1 IAB0 Ectopic0 Multiple0 Live Births2 Respiratory Coordinator History LMP: 01/05/2024, Having periods Age at Menarche: Age at First : Age at Menopause: Respiratory Coordinator History Comments: Sexual Activity: Yes; Male Contraception: Tubal Ligation PAST MEDICAL HISTORY Diagnosis Date Constipation Hypoglycemia Hypotension Kidney stones 11/19/2007 PAST SURGICAL HISTORY Procedure Laterality Date BX OF BREAST; INCISIONAL Right 01/21/2024 DILATION & CURETTAGE DX&/THER NONOBSTETRIC 2008 SAB PAST SURGICAL HISTORY OF 2011 wisdom teeth ext TONSILLECTOMY PRIMARY/SECONDARY <AGE 12 Tonsillectomy TUBAL LIGATION HX 03/22/2017 LAPAROSCOPIC LIGATION TUBAL FILSHIE CLIPS FAMILY HISTORY Problem Relation Age of Onset No Known Problems Mother other (arthiritis) Father No Known Problems Sister other (heart murmer) Brother Heart Brother Cancer Maternal Grandfather 55 stomach Lung Cancer Paternal Grandfather Asthma Son Breast Cancer Paternal cousin 33 first cousin once removed; BRCA2 positive, but inherited from opposite side of family from patient Ovarian cancer Paternal great-grandmother Cervical Cancer Other paternal cousin Social History Tobacco Use Smoking status: Former Packs/day: .5 Types: Cigarettes Quit date: 07/20/2009 Years since quittin.7 Smokeless tobacco: Never Vaping Use Vaping Use: Never used Substance Use Topics Alcohol use: Yes Comment: Seldom, NOT WHILE Drug use: No Current Outpatient Medications Medication Sig L.acidophilus-L.rhamnosus (FLORAJEN WOMEN) 15 billion cell capsule Take 1 capsule by mouth once daily. MEDICATION, NON-DATABASE 2 capsules once daily. BIO CLEANSE SUPPLEMENT WITH MAGNESIUM Lactobacillus acidophilus (PROBIOTIC) 10 billion cell cap Take by mouth once daily. (Patient not taking: Reported on 01/30/2024) No current facility-administered medications for this visit. Allergies As of Date: 04/29/2024 Allergen Noted Reaction CODEINE 10/01/2008 Rash LATEX 02/13/2023 Rash NICKEL 11/07/2011 Rash Fully Assessed 04/29/2024 REVIEW OF SYSTEMS Abdomen: No bloating, early satiety, indigestion, or increased flatulence. No abdominal pain, nausea, vomiting, diarrhea, or constipation. Bladder: No dysuria, gross hematuria, urinary frequency, urinary urgency, or incontinence. Breast: No breast lumps, nipple d/c, overlying skin changes, redness or skin retraction. 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: Positive for abnormal vaginal discharge and vaginal itching Allergies and current medication updated:Yes EXAM: BP 114/66 Wt 126 lb (57.2kg) LMP 01/05/2024 GENERAL: pleasant, female in no apparent distress HEENT: Normocephalic, atraumatic, mucus membranes moist, and no lesions NECK: Supple, full range of motion, no adenopathy, and thyroid normal DERMATOLOGY: Normal, without lesions, non-icteric, and non-hirsute BREAST: deferred CHEST: Normal inspiratory effort ABDOMEN: Deferred PELVIC: external genitalia normal, normal Bartholin's glands, urethra, [place]'s glands, no vulvar lesions, no cervical lesions, good vaginal support, physiologic discharge present, normal appearing perineal body and perianal region, scant discharge BIMANUAL: deferred NEURO: alert and oriented x3,exam grossly non-focal EXTREMITIES: normal ASSESSMENT AND PLAN: Encounter Diagnosis ICD-10-CM 1. Vaginal discharge N89.8 BACTERIAL VAGINOSIS NAAT STACI/TRICHOMONAS NAAT Will call with results would rather have natural treatment Nereyda Ruffin MD documented in this encounter [facility] 03-06-2024 History and physical note PELVIC FLOOR COLON & RECTAL SURGERY Reason for visit: Review anorectal manometry and EMG results History of Present Illness: Jaycee Reed is a 43 year old FEMALE who was seen at the request of Dr. Wells for anorectal manometry testing, rectal sensation testing and EMG recruitment. Miss Reed was referred for testing due to symptoms of constipation. GI Symptoms: Onset of issues: -since she was a child, unsure if she got enemas or laxative use as a child - Lumpectomy in january made symptoms worse Stool frequency: can go 4 days between bowel movements, won't let herself go more than 2-3 days ( will drink smooth move tea or MoM) Stool type: usually kind of hard unless she takes something Stool straining: no straining Incomplete evacuation: Yes, feels like they are not emptying completely Maneuvers: tries to move around Current bowel regimen:prune juice, magnesium, smooth move tea, plexus biocleanse Use of enemas or suppositories: has used enemas in the past, will give her relief What medications have you tried in the past? : Miralax ( hurt her stomach and made her cramp) Vaginal/perineal pressure: no Abdominal pressure/pain: - lower abdomen - cramping - sometimes sharp - improves when she passes gas or goes to the bathroom - recently more abdominal pain then ever Anorectal pain: no Feelings of prolapse :no Do you have accidental bowel leakage, fecal incontinence, or urgency with bowel movements? no Blood or mucous: sometimes will have mucous Hx of Surgery: lumpectomy in January ,tubal ligation,D & C Hx of Abuse/trauma, stress: - when she is stressed will make constipation worse - yes, no counseling, traumatic in her 20s feels like she has healed from it Previous PFPT:no GI provider: [facility] Family history: women in her family deal with constipation Does not notice a difference around menstrual cycles Urinary Symptoms: Urinary incontinence: none Urinary frequency: Yes, sometimes, after intimacy Obstetric history: 3 Para 2 Vaginal delivery: 1st baby vaginal, 2nd miscarriage, 3rd vaginal No complications. - Episiotomy: No - Tear: No - Forceps No Previous Testing Results include: Colonoscopy: Yes Date:about 5-6 years ago - normal Manometry: today Defecography: No PAST MEDICAL HISTORY Diagnosis Date Constipation Hypoglycemia Hypotension Kidney stones 11/19/2007 PAST SURGICAL HISTORY Procedure Laterality Date BX OF BREAST; INCISIONAL Right 01/21/2024 DILATION & CURETTAGE DX&/THER NONOBSTETRIC 2009 SAB PAST SURGICAL HISTORY OF 2011 wisdom teeth ext TONSILLECTOMY PRIMARY/SECONDARY <AGE 13 Tonsillectomy TUBAL LIGATION HX 03/22/2017 LAPAROSCOPIC LIGATION TUBAL FILSHIE CLIPS Current Outpatient Medications Medication Sig Dispense Refill L.acidophilus-L.rhamnosus (FLORAJEN WOMEN) 15 billion cell capsule Take 1 capsule by mouth once daily. 90 capsule 3 Lactobacillus acidophilus (PROBIOTIC) 10 billion cell cap Take by mouth once daily. (Patient not taking: Reported on 01/30/2024) MEDICATION, NON-DATABASE 2 capsules once daily. BIO CLEANSE SUPPLEMENT WITH MAGNESIUM No current facility-administered medications for this visit. ALLERGIES Allergen Reactions Codeine Rash Latex Rash Nickel Rash FAMILY HISTORY Problem Relation Age of Onset No Known Problems Mother other (arthiritis) Father No Known Problems Sister other (heart murmer) Brother Heart Brother Cancer Maternal Grandfather 55 stomach Lung Cancer Paternal Grandfather Asthma Son Breast Cancer Paternal cousin 33 first cousin once removed; BRCA2 positive, but inherited from opposite side of family from patient Ovarian cancer Paternal great-grandmother Cervical Cancer Other paternal cousin Social History Tobacco Use Smoking status: Former Packs/day: .5 Types: Cigarettes Quit date: 07/20/2009 Years since quittin.6 Smokeless tobacco: Never Vaping Use Vaping Use: Never used Substance Use Topics Alcohol use: Yes Comment: Seldom, NOT WHILE Drug use: No Physical Exam: There were no vitals filed for this visit. General Appearance: Well appearing, alert, in no acute distress, well-hydrated, well nourished. Anorectal: Perianal skin is intact. No erythema, induration or excoriation. No fissure, fistula or external hemorrhoids. Digital Rectal Exam: Anus: closed Resting tone: NORMAL Squeeze tone: NORMAL Valsalva: pelvic floor relaxation is Abnormal. Minimal relaxation or movement Puborectalis: non tender in Left anterior, Right anterior, Left posterior, and Right posterior to palpation on valsalva Rectocele: Present Full thickness rectal prolapse: No Assessment Anorectal Physiology tests reviewed at today's visit: Reason for testing: constipation Ileoanal pouch: No Anorectal Manometry Testing: Strength: Anorectal manometry was performed. Average Pressure Interpretation Rest: 45 mmHg This is within normal range. Normal range is 35-50 mmHg. Squeeze: 104 mmHg This is above normal range. Normal range is 75 - 100 mmHg. There is significant incremental change between resting and squeeze pressures which can indicate good pelvic floor movement with squeeze. Sensory: Sensation Volume First sensation : 23 mL / Normal Range: 40-80 mL First urge to defecate: 50 mL / Normal Range: 80-120 mL Maximum tolerable volume: 93 mL / Normal Range: 120-180 mL Recto-anal inhibitory reflex: Yes Balloon expulsion: No This exhibit hyperacute rectal sensation with at least 2/3 sensory tests. A recto-anal inhibitory reflex (RAIR) was present. This is a normal reflex. EMG Recruitment: EMG recruitment was performed. The patient shows a normal increase in activity with squeeze, and a mild paradoxic increase in activity with valsalva. This indicates abnormal pelvic floor movement, which can be indicative of poor pelvic floor coordination secondary to pelvic floor non-relaxation / dyssynergia. Assessment and Plan: Jaycee Reed is a 43 year old FEMALE who was referred for anorectal physiology testing due to symptoms of constipation. The testing that was performed today includes anorectal manometry, rectal sensory testing, balloon expulsion and EMG recruitment. These test results were reviewed with Jaycee Reed and are listed above. Overall, these tests show abnormal anal sphincter strength, hyperacute rectal sensation, and abnormal pelvic floor movement. After review of the patient's history, physical exam findings, anorectal manometry and EMG results, the patient may have obstructive defecation due to non-relaxation of the puborectalis/pelvic floor dyssynergia which could contribute to their symptoms. Recommendations for this include: 1. Stay hydrated by drinking at least 8 glasses of water per day. This will help to keep your bowel habits more regular. 2. Continue taking your bowel regimen as prescribed/ discuss with Dr. Wells a good bowel regimen 3.Try using a squatty potty or foot stool under your feet with bowel movements to promote relaxation of your pelvic floor. 4. Enemas or suppositories may help to stimulate your bowels to evacuate. If this is successful then it can be repeated daily. 5. Pelvic floor physical therapy. The goal of this therapy is to retrain the pelvic floor muscles to more appropriately relax and therefore improve evacuation of stool. Physical therapy is the most effective way to get the pelvic floor muscles moving and coordinating correctly. Pelvic floor PT was ordered today, reviewed scheduling process with patient and how to find local therapists. 6. There are no surgical options to improve pelvic muscle coordination. 7. Pelvic floor dysfunction handout reviewed and provided to patient. 8. Patient was instructed to follow up virtual visit in 3 months after completion of physical therapy and adherence to suggested bowel regimen. 9. Follow up with your referring physician. A copy of your test results will be sent to this physician. Veronica Claros PA-C Pelvic Floor Colorectal Surgery I spent a total of 45 minutes on the date of the service which included preparing to see the patient, [id number] patient care, completing clinical documentation, obtaining and/or reviewing separately obtained history, performing a medically appropriate examination, counseling and educating the patient/family/caregiver, ordering medications, tests, or procedures, communicating with other HCPs (not separately reported), independently interpreting results (not separately reported), and communicating results to the patient/family/caregiver. documented in this encounter [facility] 03-06-2024 Instructions Veronica Claros PA-C - 03/06/2024 4:05 PM EDT 1. Stay hydrated by drinking at least 8 glasses of water per day. This will help to keep your bowel habits more regular. 2. Continue taking your bowel regimen as prescribed/ discuss with Dr. Wells a good bowel regimen 3.Try using a squatty potty or foot stool under your feet with bowel movements to promote relaxation of your pelvic floor. 4. Enemas or suppositories may help to stimulate your bowels to evacuate. If this is successful then it can be repeated daily. 5. Pelvic floor physical therapy. The goal of this therapy is to retrain the pelvic floor muscles to more appropriately relax and therefore improve evacuation of stool. Physical therapy is the most effective way to get the pelvic floor muscles moving and coordinating correctly. Pelvic floor PT was ordered today, reviewed scheduling process with patient and how to find local therapists. 6. There are no surgical options to improve pelvic muscle coordination. 7. Pelvic floor dysfunction handout reviewed and provided to patient. 8. Patient was instructed to follow up virtual visit in 3 months after completion of physical therapy and adherence to suggested bowel regimen. 9. Follow up with your referring physician. A copy of your test results will be sent to this physician. Pelvic Floor Physical Therapy has been ordered for you. To make an appointment through [facility] call : [phone] If you are not close to a [facility] location, you can visit any one of these sites. Just put your zip code in and Pelvic Floor Physical Therapy places near you will populate. - [email or web address] - [email or web address] - [email or web address] - [email or web address] documented in this encounter [facility] 02-20-2024 History of Present illness Narrative 1:29 PM end 1:41 PM VIRTUAL VISIT FOLLOW UP I have communicated my name and active licensure. The patient's identity and physical location were verified at the time of this visit. Either the patient or their legal signs and displays sales representative has been informed of the risks and benefits of -- and alternatives to -- treatment through a remote evaluation and consents to proceed with the evaluation remotely. I had a virtual visit with Ms. Brianna cheema who was referred by Leia Simons MD for evaluation and treatment of stomach pain. A copy of this visit will be sent to the referring physician via the shared medical record. I have personally interviewed and examined this patient and have confirmed or modified the review of systems both general and GI specific in the nursing notes. UPDATED HISTORY: Patient reports that she has had problems with her bowels since she was a child. Not able to give me details as to whether her mother gave her enemas, what happened in high school - did she use public toilets for example or wait until she got home. After eating her stomach hurts. Does state that all of her female cousins have this problem. Has been having diarrhea. Had a KUB - acute series at [facility] she presented with abdominal pain CHEST: LUNGS AND PLEURAL SPACES: Unremarkable. No consolidation or edema. No pneumothorax. No effusion. HEART: Unremarkable. Cardiac silhouette not enlarged. MEDIASTINUM: Central airways and mediastinal contour are unremarkable. ABDOMEN: INTRAPERITONEAL SPACE: No free air. GASTROINTESTINAL TRACT: Moderate amount of stool in the colon. Non-obstructive. No bowel or stomach distention. ORGANS: Unremarkable as visualized. No organomegaly. No abnormal calcifications. TUBES, LINES AND DEVICES: None. BONES/JOINTS: No acute findings. SOFT TISSUES: Tubal ligation clips. PAST MEDICAL HISTORY Diagnosis Date Constipation Hypoglycemia Hypotension Kidney stones 11/19/2007 PAST SURGICAL HISTORY Procedure Laterality Date BX OF BREAST; INCISIONAL Right 01/21/2024 DILATION & CURETTAGE DX&/THER NONOBSTETRIC 2008 SAB PAST SURGICAL HISTORY OF 2011 wisdom teeth ext TONSILLECTOMY PRIMARY/SECONDARY <AGE 12 Tonsillectomy TUBAL LIGATION HX 03/22/2017 LAPAROSCOPIC LIGATION TUBAL FILSHIE CLIPS FAMILY HISTORY Problem Relation Age of Onset No Known Problems Mother other (arthiritis) Father No Known Problems Sister other (heart murmer) Brother Heart Brother Cancer Maternal Grandfather 55 stomach Lung Cancer Paternal Grandfather Asthma Son Breast Cancer Paternal cousin 33 first cousin once removed; BRCA2 positive, but inherited from opposite side of family from patient Ovarian cancer Paternal great-grandmother Cervical Cancer Other paternal cousin Social History Tobacco Use Smoking status: Former Packs/day: .5 Types: Cigarettes Quit date: 07/20/2009 Years since quittin.5 Smokeless tobacco: Never Vaping Use Vaping Use: Never used Substance Use Topics Alcohol use: Yes Comment: Seldom, NOT WHILE Drug use: No Current Outpatient Medications Medication Sig Dispense Refill L.acidophilus-L.rhamnosus (FLORAJEN WOMEN) 15 billion cell capsule Take 1 capsule by mouth once daily. 90 capsule 3 Lactobacillus acidophilus (PROBIOTIC) 10 billion cell cap Take by mouth once daily. (Patient not taking: Reported on 01/30/2024) MEDICATION, NON-DATABASE 2 capsules once daily. BIO CLEANSE SUPPLEMENT WITH MAGNESIUM No current facility-administered medications for this visit. ALLERGIES Allergen Reactions Codeine Rash Latex Rash Nickel Rash REVIEW OF SYSTEMS: PAIN ASSESSMENT: CURRENTLY HAVING PAIN; see HPI GENERAL: No weight loss, malaise or fevers RESPIRATORY: Negative for cough, hemoptysis, wheezing, COPD, dyspnea or shortness of breath CARDIOVASCULAR: Negative for chest pain, leg swelling, hypertension, CHF or palpitations GI: see HPI PHYSICAL FINDINGS OF NOTE: General - Normal, healthy, cooperative, in no acute distress Able to interact verbally by video conference Psych - ORIENTATION: normal to time place, person and situation Mood/Affect: AFFECT AND MOOD: Normal REVIEWED ITEMS as above IMPRESSION/PLAN 43 yo female with probable abdominal pain from chronic constipation, May have overflow diarrhea sec to the constipation. Discussed with her. She has had a tubal ligation. May have a pelvic floor disorder. Recommend anorectal manometry with the [facility] at [facility] - all female physicians ans staff. May benefit from female pelvic floor PT. Referral to [facility] entered and anorectal manometry order placed. RTC prn. I spent a total of 20 minutes on the date of the service which included preparing to see the patient, [id number] patient care, completing clinical documentation, obtaining and/or reviewing separately obtained history, counseling and educating the patient/family/caregiver, and ordering medications, tests, or procedures. Kenneth Wells MD, PhD documented in this encounter [facility] 01-30-2024 Note HNO ID: [id number] Author: MONSE GOVEA MD Service: ? Author Type: Physician Type: Progress Notes Filed: 01/30/2024 16:04 Note Text: Monse Govea MD [place] [id number] HPI: Ms. Reed is a White 43 year old woman who presents for follow up after right breast excisional biopsy after findings of atypical lobular hyperplasia associated with sclerosing intraductal papilloma on breast image guided biopsy. FAMILY HISTORY Problem Relation Age of Onset No Known Problems Mother other (arthiritis) Father No Known Problems Sister other (heart murmer) Brother Heart Brother Cancer Maternal Grandfather 55 stomach Lung Cancer Paternal Grandfather Asthma Son Breast Cancer Paternal cousin 33 first cousin once removed; BRCA2 positive, but inherited from opposite side of family from patient Ovarian cancer Paternal great-grandmother Cervical Cancer Other paternal cousin PAST MEDICAL HISTORY Diagnosis Date Constipation Hypoglycemia Hypotension Kidney stones 11/19/2007 PAST SURGICAL HISTORY Procedure Laterality Date BX OF BREAST; INCISIONAL Right 01/21/2024 DILATION AND CURETTAGE DXAND/THER NONOBSTETRIC 2008 SAB PAST SURGICAL HISTORY OF 2011 wisdom teeth ext TONSILLECTOMY PRIMARY/SECONDARY Tonsillectomy TUBAL LIGATION HX 03/22/2017 LAPAROSCOPIC LIGATION TUBAL FILSHIE CLIPS Social History Tobacco Use Smoking status: Former Packs/day: .5 Types: Cigarettes Quit date: 07/20/2009 Years since quittin.5 Smokeless tobacco: Never Vaping Use Vaping Use: Never used Substance Use Topics Alcohol use: Yes Comment: Seldom, NOT WHILE Drug use: No No question data found. LAB AND IMAGING RESULTS: FINAL DIAGNOSIS A. Right breast, 10:00, 4 cm from nipple, excisional biopsy: -- Fibrocystic change proliferative type including stromal fibrosis, sclerosing adenosis, microcysts, apocrine metaplasia/cysts and focal usual duct hyperplasia. -- Columnar cell change. -- Fibroadenomatoid change. -- Focal pseudoangiomatous stromal hyperplasia (PASH). -- Focal microcalcifications associated with microcysts, sclerosing adenosis and columnar cell change. B. Right breast, new posterior margin, wire localized excision: -- Sclerosing intraductal papilloma involved by usual duct hyperplasia, see comment. -- Adjacent radial scar. -- Fibrocystic change proliferative type including usual ductal hyperplasia, cysts, apocrine metaplasia and sclerosing adenosis. -- Columnar cell change. -- Focal pseudoangiomatous stromal hyperplasia (PASH). -- Biopsy site change. -- Focal microcalcifications associated with microcysts, sclerosing adenosis and columnar cell change. Review of Systems Constitutional: Negative for chills and fever. PHYSICAL EXAMINATION: BP 94/58 Pulse 73 Ht 162.6 cm (5' 4) Wt 54.4 kg (120 lb) LMP 01/05/2024 BMI 20.60 kg/m? General appearance: Well appearing, alert, in no acute distress Skin: skin color, texture, turgor normal, no suspicious rashes or lesions Eyes: Anicteric sclera, Pupils are equally round and reactive Extremities: No clubbing, cyanosis, or edema. Neuro: Alert and oriented times three Right breast: Her incision is clean dry intact. There is no evidence of infection or hematoma. Physical Exam Plan IMPRESSION / PLAN: Ms. Reed is a White 43 year old woman who presents for follow up after right breast excisional biopsy after findings of atypical lobular hyperplasia associated with sclerosing intraductal papilloma on breast image guided biopsy. Clinical examination reveals no evidence of postoperative complications. Pathologic findings are as follows: FINAL DIAGNOSIS A. Right breast, 10:00, 4 cm from nipple, excisional biopsy: -- Fibrocystic change proliferative type including stromal fibrosis, sclerosing adenosis, microcysts, apocrine metaplasia/cysts and focal usual duct hyperplasia. -- Columnar cell change. -- Fibroadenomatoid change. -- Focal pseudoangiomatous stromal hyperplasia (PASH). -- Focal microcalcifications associated with microcysts, sclerosing adenosis and columnar cell change. B. Right breast, new posterior margin, wire localized excision: -- Sclerosing intraductal papilloma involved by usual duct hyperplasia, see comment. -- Adjacent radial scar. -- Fibrocystic change proliferative type including usual ductal hyperplasia, cysts, apocrine metaplasia and sclerosing adenosis. -- Columnar cell change. -- Focal pseudoangiomatous stromal hyperplasia (PASH). -- Biopsy site change. -- Focal microcalcifications associated with microcysts, sclerosing adenosis and columnar cell change. There is no evidence of malignancy. The patient was pleased to hear the results. I am releasing her from postoperative care. She should have her annual screening mammogram when due. DIAGNOSIS: No diagnosis found. (more content not included)... [facility] 01-30-2024 History of Present illness Narrative Images from the original note were not included. Monse Govea MD [facility] [address] [place] [address] HPI: Ms. Reed is a White 43 year old woman who presents for follow up after right breast excisional biopsy after findings of atypical lobular hyperplasia associated with sclerosing intraductal papilloma on breast image guided biopsy. FAMILY HISTORY Problem Relation Age of Onset No Known Problems Mother other (arthiritis) Father No Known Problems Sister other (heart murmer) Brother Heart Brother Cancer Maternal Grandfather 55 stomach Lung Cancer Paternal Grandfather Asthma Son Breast Cancer Paternal cousin 33 first cousin once removed; BRCA2 positive, but inherited from opposite side of family from patient Ovarian cancer Paternal great-grandmother Cervical Cancer Other paternal cousin PAST MEDICAL HISTORY Diagnosis Date Constipation Hypoglycemia Hypotension Kidney stones 11/19/2007 PAST SURGICAL HISTORY Procedure Laterality Date BX OF BREAST; INCISIONAL Right 01/21/2024 DILATION & CURETTAGE DX&/THER NONOBSTETRIC 2008 SAB PAST SURGICAL HISTORY OF 2012 wisdom teeth ext TONSILLECTOMY PRIMARY/SECONDARY <AGE 13 Tonsillectomy TUBAL LIGATION HX 03/22/2017 LAPAROSCOPIC LIGATION TUBAL FILSHIE CLIPS Social History Tobacco Use Smoking status: Former Packs/day: .5 Types: Cigarettes Quit date: 07/20/2009 Years since quittin.5 Smokeless tobacco: Never Vaping Use Vaping Use: Never used Substance Use Topics Alcohol use: Yes Comment: Seldom, NOT WHILE Drug use: No No question data found. LAB & IMAGING RESULTS: FINAL DIAGNOSIS A. Right breast, 10:00, 4 cm from nipple, excisional biopsy: -- Fibrocystic change proliferative type including stromal fibrosis, sclerosing adenosis, microcysts, apocrine metaplasia/cysts and focal usual duct hyperplasia. -- Columnar cell change. -- Fibroadenomatoid change. -- Focal pseudoangiomatous stromal hyperplasia (PASH). -- Focal microcalcifications associated with microcysts, sclerosing adenosis and columnar cell change. B. Right breast, new posterior margin, wire localized excision: -- Sclerosing intraductal papilloma involved by usual duct hyperplasia, see comment. -- Adjacent radial scar. -- Fibrocystic change proliferative type including usual ductal hyperplasia, cysts, apocrine metaplasia and sclerosing adenosis. -- Columnar cell change. -- Focal pseudoangiomatous stromal hyperplasia (PASH). -- Biopsy site change. -- Focal microcalcifications associated with microcysts, sclerosing adenosis and columnar cell change. Review of Systems Constitutional: Negative for chills and fever. PHYSICAL EXAMINATION: BP 94/58 Pulse 73 Ht 162.6 cm (5' 4) Wt 54.4 kg (120 lb) LMP 01/05/2024 BMI 20.60 kg/m General appearance: Well appearing, alert, in no acute distress Skin: skin color, texture, turgor normal, no suspicious rashes or lesions Eyes: Anicteric sclera, Pupils are equally round and reactive Extremities: No clubbing, cyanosis, or edema. Neuro: Alert and oriented times three Right breast: Her incision is clean dry intact. There is no evidence of infection or hematoma. Physical Exam Plan IMPRESSION / PLAN: Ms. Reed is a White 43 year old woman who presents for follow up after right breast excisional biopsy after findings of atypical lobular hyperplasia associated with sclerosing intraductal papilloma on breast image guided biopsy. Clinical examination reveals no evidence of postoperative complications. Pathologic findings are as follows: FINAL DIAGNOSIS A. Right breast, 10:00, 4 cm from nipple, excisional biopsy: -- Fibrocystic change proliferative type including stromal fibrosis, sclerosing adenosis, microcysts, apocrine metaplasia/cysts and focal usual duct hyperplasia. -- Columnar cell change. -- Fibroadenomatoid change. -- Focal pseudoangiomatous stromal hyperplasia (PASH). -- Focal microcalcifications associated with microcysts, sclerosing adenosis and columnar cell change. B. Right breast, new posterior margin, wire localized excision: -- Sclerosing intraductal papilloma involved by usual duct hyperplasia, see comment. -- Adjacent radial scar. -- Fibrocystic change proliferative type including usual ductal hyperplasia, cysts, apocrine metaplasia and sclerosing adenosis. -- Columnar cell change. -- Focal pseudoangiomatous stromal hyperplasia (PASH). -- Biopsy site change. -- Focal microcalcifications associated with microcysts, sclerosing adenosis and columnar cell change. There is no evidence of malignancy. The patient was pleased to hear the results. I am releasing her from postoperative care. She should have her annual screening mammogram when due. DIAGNOSIS: No diagnosis found. Monthly self breast exams encouraged. I discussed my findings and recommendations with the patient. Ms. Reed is in agreement with the plan. Monse Govea MD documented in this encounter [facility] 01-30-2024 Nurse Note Jaycee Reed is a 43 year old female who presents to follow up for Post Op (RT breast excisional BX) and Results Pt c/o soreness with movement of right breast. Pt denies redness and drainage Georgina Simons LPN documented in this encounter [facility] 01-28-2024 History of Present illness Narrative Ecotherapist offered: Patient declines. Jaycee Reed is a 43 year old female who presents for problem visit of vaginitis. HPI: Jaycee is here for concern of vaginal itching and thick milky discharge. She also discussed her bloating. She reports chronic constipation. She has a history of IBS. She had an x ray at the ED in October 2023 that showed no acute findings in the chest, abdomen or pelvis. She denies early satiety. OB History T1 L2 SAB1 IAB0 Ectopic0 Multiple0 Live Births2 Respiratory Coordinator History LMP: 01/05/2024, Having periods Age at Menarche: Age at First : Age at Menopause: Respiratory Coordinator History Comments: Sexual Activity: Yes; Male Contraception: Tubal Ligation PAST MEDICAL HISTORY Diagnosis Date Constipation Hypoglycemia [...] Heart Brother Cancer Maternal Grandfather 55 stomach Lung Cancer Paternal Grandfather Asthma Son Breast Cancer Paternal cousin 33 first cousin once removed; BRCA2 positive, but inherited from opposite side of family from patient Ovarian cancer Paternal great-grandmother Cervical Cancer Other paternal cousin Social History Tobacco Use Smoking status: Former Packs/day: .5 Types: Cigarettes Quit date: 07/20/2009 Years since quittin.5 Smokeless tobacco: Never Vaping Use Vaping Use: Never used Substance Use Topics Alcohol use: Yes Comment: Seldom, NOT WHILE Drug use: No Current Outpatient Medications Medication Sig Lactobacillus acidophilus (PROBIOTIC) 10 billion cell cap Take by mouth once daily. MEDICATION, NON-DATABASE 2 capsules once daily. BIO CLEANSE SUPPLEMENT WITH MAGNESIUM No current facility-administered medications for this visit. Allergies As of Date: 01/28/2024 Allergen Noted Reaction CODEINE 10/01/2008 Rash LATEX 02/13/2023 Rash NICKEL 11/07/2011 Rash Fully Assessed 01/21/2024 REVIEW OF SYSTEMS Abdomen: No bloating, early satiety, indigestion, or increased flatulence. No abdominal pain, nausea, vomiting, diarrhea, or constipation. Bladder: No dysuria, gross hematuria, urinary frequency, urinary urgency, or incontinence. Breast: No breast lumps, nipple d/c, overlying skin changes, redness or skin retraction. Expanded ROS: N/A Allergies and current medication updated:Yes EXAM: BP 100/60 Wt 122 lb (55.3kg) LMP 01/05/2024 GENERAL: pleasant, female in no apparent distress HEENT: Normocephalic, atraumatic, mucus membranes moist, and no lesions CHEST: Normal inspiratory effort ABDOMEN: soft, non-tender, and no masses PELVIC: external genitalia normal, normal Bartholin's glands, urethra, [place]'s glands, no vulvar lesions, good vaginal support, physiologic discharge present, normal appearing perineal body and perianal region + difficulty visualizing cervix due to patient position/discomfort BIMANUAL: uterus normal size, shape and consistency, no adnexal masses, and non-tender NEURO: alert and oriented x3,exam grossly non-focal EXTREMITIES: normal ASSESSMENT AND PLAN: 1. Vaginal itching - ICD9: 698.1, ICD10: N89.8 (primary diagnosis) - STACI/TRICHOMONAS NAAT - BACTERIAL VAGINOSIS NAAT - Recommend women's health probiotic 2. Chronic idiopathic constipation - ICD9: 564.00, ICD10: K59.04 - Discussed would recommend pelvic ultrasound to rule out ovarian malignancy based on symptoms. Jaycee declines for now due to recent imaging in ER. Recommend follow up with GI - If persistent, plan for pelvic ultrasound - CONSULT TO GASTROENTEROLOGY Aurelia Borges APRN.CNP Medical Decision Making: Problems: Low: Stable chronic illness Moderate: New problem with uncertain prognosis Data: Unique test(s) ordered: 2 Risk: Low: Low risk from testing/treatment Medical Decision Making Level: 3 - Low documented in this encounter [facility] 01-21-2024 Note HNO ID: [id number] Author: MARV RUBALCAVA MD, PhD Service: Anesthesiology Author Type: Anesthesiologist Type: Anesthesia Procedure Notes Filed: 01/21/2024 17:48 Note Text: ANESTHESIOLOGY PROCEDURE NOTE Airway General Information Procedure Start Time/Medication Administration: 01/21/2024 8:18 AM Patient location during procedure: OR Timeout Performed Pre-procedure: timeout performed Consent Obtained: Yes Patient identity confirmed: arm band and patient Staffing Anesthesiologist: Marv Rubalcava MD, PhD DRILL PRESS TENDER: Sintia Draper APRN.DRILL PRESS TENDER Performed by: DRILL PRESS TENDER Indications and Patient Condition Indications for airway management: anesthesia Preoxygenated: yes anesthesia circuit Patient position: sniffing Method: asleep Difficult Mask: No Final Airway Details Final airway type: supraglottic airway Number of attempts at approach: 1 Final Supraglottic Airway: i-gel Size 3 Seal Adequate: yes Airway not difficult Comments Dental and oral cavity remain at patient baseline post LMA placement. SIGNATURE: Sintia Draper APRN.DRILL PRESS TENDER PATIENT NAME: Jaycee Reed DATE: January 21, 2024 TIME: 8:32 AM CSN: [id number] [facility] 01-18-2024 History of Present illness Narrative Images from the original note were not included. [facility] Consultation Note Genetic Counselor: Veronica Davis, , CGC Patient: Jaycee Reed Patient Name and confirmed at initiation of visit. This visit was conducted via [employer]. I have communicated my name and active licensure. The patient's identity and physical location were verified at the time of this visit. Either the patient or their legal signs and displays sales representative has been informed of the risks and benefits of -- and alternatives to -- treatment through a remote evaluation and consents to proceed with the evaluation remotely. HIGH LEVEL SUMMARY: The patient's family history is not suggestive of a hereditary cancer syndrome. Genetic testing is not indicated for the patient at this time. The patient was encouraged to keep us updated with any changes to her personal or family history of cancer as this may affect her risk assessment. IDENTIFICATION AND CHIEF COMPLAINT: Dr. Monse Govea requested a consultation for genetic counseling and risk assessment for Jaycee Reed, a 43 year old female, for discussion of her recent diagnosis of atypical lobular hyperplasia and family history of breast cancer and ovarian cancer. She presents to clinic today to discuss the possibility of a genetic predisposition to cancer, and to further clarify her risks, as well as her family members' risks for cancer. HISTORY OF PRESENT ILLNESS: Jaycee Reed is a 43 year old female with no personal history of cancer. She was found to atypical lobular hyperplasia in the right breast. She will be having a lumpectomy on Sunday. PAST MEDICAL HISTORY Diagnosis Date Constipation Hypoglycemia Hypotension Kidney stones 11/19/2007 PAST SURGICAL HISTORY Procedure Laterality Date DILATION & CURETTAGE DX&/THER NONOBSTETRIC 2008 PAST SURGICAL HISTORY OF 2011 wisdom teeth ext TONSILLECTOMY PRIMARY/SECONDARY <AGE 13 Tonsillectomy TUBAL LIGATION HX 03/22/2017 LAPAROSCOPIC LIGATION TUBAL FILSHIE CLIPS CANCER SURVEILLANCE HISTORY: Colonoscopy: Yes / 6 years ago EGD: No GI Polyps: No REPRODUCTIVE HISTORY AND PERSONAL RISK ASSESSMENT FACTORS: Weight: Last 1 Encounter Wt Readings: Date: Wt: 12/11/2023 54 kg (119 lb) Height: Last 1 Encounter Ht Readings: Date: Ht: 01/15/2024 162.6 cm (5' 4) Uterus Intact: Yes Ovaries Intact: Yes SOCIAL HISTORY: Social History Tobacco Use Smoking status: Former Packs/day: .5 Types: Cigarettes Quit date: 07/20/2009 Years since quittin.5 Smokeless tobacco: Never Vaping Use Vaping Use: Never used Substance Use Topics Alcohol use: Yes Comment: Seldom, NOT WHILE Drug use: No FAMILY HISTORY: We obtained a detailed, 4-generation family history. Significant diagnoses are listed below: FAMILY HISTORY Problem Relation Age of Onset No Known Problems Mother other (arthiritis) Father No Known Problems Sister other (heart murmer) Brother Heart Brother Cancer Maternal Grandfather 55 stomach Lung Cancer Paternal Grandfather Asthma Son Breast Cancer Paternal cousin 33 first cousin once removed; BRCA2 positive, but inherited from opposite side of family from patient Ovarian cancer Paternal great-grandmother Cervical Cancer Other paternal cousin A copy of the patient's pedigree will be available under the scanned documents tab following today's visit. GENETIC COUNSELING RISK ASSESSMENT, DISCUSSION, AND SUGGESTED FOLLOW UP: We reviewed the natural history and genetic etiology of sporadic, familial and hereditary cancer syndromes. The patient's family history is not suggestive of a hereditary cancer syndrome The patient reported that her father's maternal first cousin (patient's first cousin-once removed) was diagnosed with breast cancer at age 33 and tested positive for a mutation in BRCA2. However, the patient's cousin indicated that the mutation was inherited from her father, who is not biologically related to the patient. The patient also reported that her paternal great-grandmother had a history of ovarian cancer. Since this is a third-degree relative to the patient, the patient does not meet NCCN HBOC genetic testing criteria. Although the patient does not meet genetic testing criteria, we discussed the option of pursuing genetic testing for an out of pocket fee. She decided to defer genetic testing at this time. The patient was encouraged to keep us updated with any changes to her personal or family history of cancer as this may affect her risk assessment. We discussed that if breast cancer is identified in her surgical specimen, she would be recommended to pursue genetic testing. The patient was seen for a total of 20 minutes, greater than 50% of which was spent [id number] counseling. This plan is being carried out under the oversight of Dr. Yi Barroso. This note will also be sent to the referring provider via the electronic medical record. Veronica Davis, MS, [facility] [place], Licensed, Certified Genetic Counselor [facility] CC: Dr. Monse Morrow documented in this encounter [facility] 01-15-2024 Instructions Aga Ponce APRN.SOLDERER BARREL RIBS - 01/15/2024 2:51 PM EST PATIENT PREOPERATIVE INSTRUCTIONS DR. JUNE MENDOZA has scheduled you for your procedure at this surgery center: [facility]: [phone], [address] [place] [id number] Please read below carefully for your personalized instructions. SURGERY DATE: 01-21-2024 Your surgeon's office will provide you with your ARRIVAL TIME for surgery. -If you have not received an arrival time by the afternoon before your surgery date, please follow up with your surgeon's office. - If you are scheduled for Sunday surgery, please make sure you have your arrival time by Sunday afternoon. -Please be aware that emergency situations arise, which may delay or change your surgical time. If this happens, your surgeon's office will notify you as soon as possible and regret any inconvenience. Dietary Restrictions: - You may have 12 ounces of clear liquids (water, clear juices such as apple juice or gatorade, carbonated beverages, clear tea, black coffee, jello) until 2 hours before scheduled arrival at facility. This is important because if you do, your surgery may have to be cancelled Blood Thinning Medications: Stop NSAIDS. -DO NOT TAKE (Ibuprofen, Advil, Aleve, Motrin, Naproxen, Celebrex, Mobic, Voltaren, Diclofenac etc.) 7 days before surgery, or as directed by your surgeon. IF YOU TAKE ANY OF THE FOLLOWING BLOOD THINNERS, PLEASE CONTACT YOUR SURGEON AND THE PHYSICIAN WHO PRESCRIBES IT FOR YOU IN ORDER TO GET PERIOPERATIVE INSTRUCTIONS SOON POSSIBLE. BLOOD THINNERS: Aspirin, Coumadin, Plavix, Eliquis, Pradaxa, Xarelto, Lovenox, Brilinta, Effient, Savaysa, Arixtra, etc - Stop Vitamin E, fish oil, multivitamins, Marijuana, CBD oil and other over the counter herbals and dietary supplements 7 days before surgery. -This would not apply to cancer patients who are prescribed Marinol or any other prescription form on marijuana or CBD. - You may take Tylenol (Acetaminophen) or any of your pain medications that do not contain aspirin or NSAIDS as needed. Preoperative Instructions for Patients with Diabetes Mellitus: Please follow up with the provider that manages your diabetes and how to prepare you for surgery. Do not take the morning of surgery: Trajenta, Metformin, Actos/Pioglitazone and Amaryl/Glimepiride. For the following Medications, please HOLD 2 DAYS PRIOR TO SURGERY: Glucotrol/Glipizide, Januvia/Sitagliptin, Glyburide, Prandin/Repaglinide, Starlix/Nateglinide, Symlin/Pramlintide For the following Medications, please HOLD 3 DAYS PRIOR TO SURGERY: Canagliflozin/Invokana, Dapagliflozin/Farxiga ,Empagliflozin/Jardiance, Invokamet/canagliflozin and metformin, Xigduo XR/ dapagliglozin and metformin, Glyxambi/ empagliflozin and metformin, Syndardy/ empagliflozin and metformin For the following Medications, please HOLD 4 DAYS PRIOR TO SURGERY: Ertugliflozin/Steglatro For the following Medications, please HOLD 7 DAYS PRIOR TO SURGERY: GLP-1 AGONIST: Adlyxin (lixisenatide), Bydureon BCise (exenatide suspension), Byetta (exenatide), Mounjaro (tirzepatide), Ozempic (semaglutide injection), Rybelsus (semaglutide tablets), Tanzeum (albiglutide), Trulicity (dulaglutide), Victoza (liraglutide), Wegovy (semaglutide), Saxenda (liraglutide) Insulin Medication Instructions: Please follow up with the provider that manages your Insulin and how to prepare you for surgery. Medications: Approved medications to take the morning of surgery with a sip of water: BP, Heart, thyroid, psych, seizure, and pain medications excluding NSAIDS. Use inhalers as prescribed. Please bring inhalers day of surgery. If you take an BARBARA inhibitors (Angiotensin-converting enzyme inhibitors) and Angiotensin II receptor blockers (ARBs) for your blood pressure please Hold that medication day of surgery. Approved medications to take the morning of surgery with a sip of water: Pre-Surgery Med Instructions Medication Instructions MEDICATION, NON-DATABASE Stop 7 days before surgery Lactobac no.41/Bifidobact no.7 (PROBIOTIC-10 ORAL) Stop 7 days before surgery Weight loss medications: Sympathomimetics such as Adipex-P (Phentermine): Stop 4 days before surgery. Contrave (Naltrexone/Bupropion) Hold 2-3 days. Qsymia (Phentermine/Topiramate - Please contact your prescribing provider for Pre op directions. ( depending on the patients dose this medication may need tapered off. They should get pre op directions from their prescribing provider.) GLP-1 Agonists (oral and injectables) Hold 7 days. If you start any new medications after today's visit, please contact the surgeon's office. Important Reminders: -You need a responsible person to stay and wait for you at the hospital or surgery center during your procedure. - -If you are undergoing an outpatient procedure you must have someone drive you home and stay with you for 24 hours. Your ride home must be at least 18 years old or older. Your surgery may be cancelled if you do not have someone to drive you home or take care of you for 24 hours. -- If you have a stimulator, implant or pump that requires a remote please bring the remote with you the day of surgery. - Candy, mints, and tobacco products are NOT permitted the morning of surgery. - Hearing aids, dentures and glasses may be worn the morning of surgery. - NO jewelry, body piercings, makeup, hairpins or contacts are to be worn the day of surgery. -If you use CPAP/BIPAP, you can bring the machine with you the day of surgery. - If you are prescribed inhalers for breathing, continue using them AND bring them to the surgery center. -- Leave ALL valuables and money at home or with family members. -Oral hygiene and a shower or bath are required the evening before or the morning of surgery. - NO lotion, creams, powders or deodorants on the skin the day of surgery. -Wear loose, comfortable clothing that will accommodate bandages. -Your length of stay will be determined by your surgeon - You will need to have someone else (Family or friend) drive you home once discharged from the hospital. You are not allowed to drive yourself home after surgery. - YOU MUST HAVE A RESPONSIBLE TIRE BALANCER TO TAKE YOU HOME. A PAINTING MACHINE OPERATOR, CAB OR UBER TIRE BALANCER CANNOT BE MADE A RESPONSIBLE TIRE BALANCER. - You cannot stay in a hotel alone after outpatient surgery. You will not be permitted to have your surgery, if you do not have someone to take care of you. -It is recommended patients have a 72-hour period between getting their vaccine and date of surgery. If you develop symptoms such as a fever, cold, or flu, or have other changes to your health within TWO DAYS of scheduled surgery or the morning of surgery, please contact the surgery center above. Visitors to any [facility] facility: An individual who is sick should not visit. Visitors to patients with COVID-19 must follow these guidelines, which include wearing a mask, eye protection, gown and gloves. [facility]- Visitations are: Visitation hours are from 7 a.m. to 9 p.m. Pre- Surgery-Patients may have up to two visitors at a time. PACU-Patients may have up to 1-2 visitors at a time. [facility]: Any individual who is sick should not visit. [facility] Pre surgery- One visitor in Pre-surgery due to limited spaced ASC PACU- No visitors in PACU unless it's a minor due to limited spaced. Personal Belongings: -Please have your photo ID and insurance cards. -If you do not have a copy of advance directives on file with us, please bring a copy with you on the day of surgery. If you already have an Advance Directive, please fax a copy to [phone] or email to for it to be added to your chart. If you do not have an Advance Directive, you can find the appropriate form and more information at [email or web address]. We recommend that you complete the Advance Directive form found on the website and bring it with you the day of your surgery. It can be witnessed and scanned into your chart that day. documented in this encounter [facility] 01-15-2024 History and physical note HISTORY AND PHYSICAL EXAMINATION SERVICE DATE: 01/15/2024 SERVICE TIME: 3:36 PM PRIMARY CARE PHYSICIAN: Leia Simons MD Assessment Patient has the following medical conditions which may affect donna-operative course: History of hypoglycemia Pain patient states she recently saw primary care Dr. Simons for hypoglycemia. She was started on a medication by her primary care for hypoglycemia however she cannot recall the name of the medication and she has not picked up the prescription from the pharmacy yet. I instructed her to call the nurse line when she has the medication name and the nurses can add the medication to her list. Pre-op testing Patient has the following medical conditions which may affect donna-operative course addressed in assessment and plan today. [place] Activity Status Index: METS: Climb a flight of stairs or walk up a hill (5.50 METs) DASI Score: 5.5 Patient denies any chest pain or undue shortness of breath with the above physical activity. ANESTHESIA FINDINGS: Intubation History: No history of difficult intubation. No abnormal airway history Significant Anesthesia Considerations: recalls having issues with low BP with the D&C. potential difficult IV/vein access Airway History: No history of difficult airway No abnormal airway history I - PHYSICAL EVALUATION AIRWAY Patient intubated: No. DENTAL Dental findings: teeth intact. Additional comments: Cavities from when she was 16 years old. Denies issues. . II - ANESTHESIA PLAN Anesthetic Plan: general Beta Melissa Monitoring Plan Post Procedure Analgesic Plan Prepared for Surgery: . NO CONSULTS PENDING. CONSULTS: Planned Anesthetic: general This is a virtual visit using ThisNext video visit. It required patient-provider interaction for the medical decision making as documented below. REASON FOR VISIT: Jaycee Reed is a 43 year old female who is scheduled for Procedure(s) with comments: RIGHT BREAST EXCISIONAL BIOPSY WITH INTRAOPERATIVE ULTRASOUND GUIDED WIRE LOCALIZATION (Right) - BREAST ERAS PROTOCOL S&I INTRAOPERATIVE ULTRASOUND GUIDANCE (Right) at the request of Dr. Monse Govea for routine H&P. My final recommendation will be communicated back to the requesting physician by way of shared medical record or letter. Subjective The patient has the following: ACTIVE PROBLEM LIST Constipation Pre-Op Testing COVID-19 Immunization Status Overdue - Covid-19 Vaccine (1) Never done No completion, postpone, frequency change, or communication history exists for this topic. Patient reports being not vaccinated against COVID-19. Patient reports a prior COVID-19 infection, with an infection date of 2019. CHIEF COMPLAINT: The reason for this visit is to perform a comprehensive review of the patient's past medical history, assess their current health status and obtain any additional testing required based on anesthesia guidelines. We will also identify any potential anesthesia problems or contraindications to the planned procedure. HPI: Jaycee Reed is a 43 year old female that presents for pre anesthesia testing. She has a cousin on her dad side with a history of breast cancer. 10/23/2023 she had a diagnostic mammogram done. She was informed the mammogram was abnormal. November 23, 2023 she had a biopsy done. In January 07, 2024 she had an MRI of the breast. She denies pain in the breast. She states she did have some tenderness in the breast after the biopsy but that has resolved. Denies fever chills nausea vomiting diarrhea. After discussion with the surgeon patient has agreed to surgical intervention. This is a virtual visit. The visit was conducted using ThisNext video visit. It required patient-provider interaction for the medical decision making as documented below. I have communicated my name and active licensure. The patient's identity and physical location were verified at the time of this visit. Either the patient or their legal signs and displays sales representative has been informed of the risks and benefits of and alternatives to treatment through a remote evaluation and consents to proceed with the evaluation remotely. REVIEW OF SYSTEMS: General: No weight loss, malaise or fevers. Neurological: Negative for: multiple sclerosis, Parkinson's disease, seizures, TIA and strokes. Respiratory: Positive for: prior COVID-19 infection. Date of COVID-19 infection: 2019. Negative for: asthma, COPD, current cough, bronchodilator used daily for the last 3 months, dyspnea, home oxygen, orthopnea, pneumonia within 6 weeks, tobacco use, URI < 2 weeks and obstructive sleep apnea. Cardiovascular: Negative for: AICD/PPM, atrial fibrillation, CAD, chest pain, DVT/PE, hyperlipidemia, hypertension, recent LA, murmur/valvular heart disease and valve surgery. GI: Negative for: abdominal pain, dysphagia, diverticulitis, GERD, heartburn, hepatitis, liver disease, nausea and vomiting. : Negative for: decreased stream, on dialysis, dysuria, frequent urination, hematuria, urinary incontinence, nephrolithiasis, nocturia >1 time per night and urgency. 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 Negative for abnormal vaginal bleeding, abnormal vaginal discharge. Endocrine: +HYPOGLYCEMIA. Has to eat frequent meals. PCP managing. Negative for: diabetes mellitus, hyperthyroidism and hypothyroidism. Hematology: Negative for: anemia, hemophilia, thrombocytopenia, transfusion of at least 4 units within 72 hours prior to surgery and chronic anti-coagulation/platelet meds. Oncology: See HPI. Negative for: chemo within 30 days and radiotherapy within 90 days. Psych: Positive for: anxiety. Negative for: bipolar disorder and depression. Musculoskeletal: Positive for: swelling (occasional swelling in hands. 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 Plan to discuss with PCP.). Negative for: back pain and joint pain. PAST MEDICAL HISTORY Diagnosis Date Constipation Hypoglycemia [...] Asthma Son Cervical Cancer Other paternal cousin Breast Cancer Paternal cousin second cousin Social History Tobacco Use Smoking status: Former Packs/day: .5 Types: Cigarettes Quit date: 07/20/2009 Years since quittin.4 Smokeless tobacco: Never Vaping Use Vaping Use: Never used Substance Use Topics Alcohol use: Yes Comment: Seldom, NOT WHILE Drug use: No Prior to Admission medications as of 01/15/24 1513 Medication Sig Last Dose Taking polyethylene glycol 3350 (HEALTHYLAX) 17 gram packet Take by mouth. Yes MEDICATION, NON-DATABASE 2 capsules once daily. BIO CLEANSE SUPPLEMENT WITH MAGNESIUM Taking Yes Lactobac no.41/Bifidobact no.7 (PROBIOTIC-10 ORAL) Take by mouth. Plexus Taking Yes FLUoxetine 10 mg tablet Not Taking potassium citrate ER (UROCIT-K) 5 mEq (540 mg) TbER Take 1 tablet by mouth every 12 hours. Patient not taking: Reported on 01/15/2024 Not Taking traZODone (DESYREL) 50 mg tablet take 1/2 tablet by mouth at bedtime for sleep linaCLOtide (LINZESS) 72 mcg capsule Take 1 capsule by mouth once daily. Administer on an empty stomach. Swallow whole; DO NOT crush or chew. sertraline (ZOLOFT) 25 mg tablet Take 25 mg by mouth once daily. Patient took 12.5mg of zoloft L. acidophilus-L. rhamnosus 15 billion cell cap Take 1 capsule by mouth once daily. FLORAJEN WOMEN. If on antibiotic, take at least 1-2 hours before or after antibiotic. KEEP REFRIGERATED No medication comments found. ALLERGIES Allergen Reactions Codeine Rash Latex Rash Nickel Rash Objective PHYSICAL EXAM: (if completed, exam performed via video enabled technology) General: alert and oriented. Skin: HEENT: Cardiovascular: Respiratory: Abdomen: Extremities: Neurological: PAIN ASSESSMENT: VITALS: Ht 5' 4 (1.63m) LMP 01/05/2024 Diagnostic tests reviewed for today's visit: Lab Value Units Date High Low HB 14.6 g/dL 12/11/2023 15.5 11.5 HCT 41.0 % 12/11/2023 46.0 36.0 WBC 5.29 k/uL 12/11/2023 11.00 3.70 PLT 253 k/uL 12/11/2023 400 150 NA 137 mmol/L 12/11/2023 144 136 K 3.6 mmol/L 12/11/2023 5.1 3.7 GLUC 111 mg/dL 12/11/2023 99 74 BUN 7 mg/dL 12/11/2023 21 7 CREAT 0.67 mg/dL 12/11/2023 0.96 0.58 PTSEC No results within date range. INR No results within date range. APTT No results within date range. ALT No results within date range. AST No results within date range. TBILI No results within date range. TSH 0.758 mIU/L 12/11/2023 4.200 0.270 Lab Value Units Date High Low HCGQT No results within date range. UHCG No results within date range. HCG, BODY* No results within date range. Lab Value Units Date High Low ABORHD No results within date range. ABSCREEN No results within date range. No results found for: HBA1C No results found for this or any previous visit (from the past 8760 hour(s)). No results found for this or any previous visit (from the past 47161 hour(s)). Instructions Given to Patient: Instructions located in the after visit summary. Patient given verbal and written preop instructions and voices comprehension and compliance. ARISCAT risk index interpretation 0 to 25 points: Low risk: 1.6% pulmonary complication rate 26 to 44 points: Intermediate risk: 13.3% pulmonary complication rate 45 to 123 points: High risk: 42.1% pulmonary complication rate Implantable Devices: CLIP IN RIGHT BREAST. The Following Tests/Procedures Have Been Initiated: NO LABS ORDERED BY SURGEON FOR PAT Assessment/Plan Abnormal findings on diagnostic imaging of breast [R92.8] PLAN Planned Procedure: Procedure(s) with comments: RIGHT BREAST EXCISIONAL BIOPSY WITH INTRAOPERATIVE ULTRASOUND GUIDED WIRE LOCALIZATION (Right) - BREAST ERAS PROTOCOL S&I INTRAOPERATIVE ULTRASOUND GUIDANCE (Right) I spent a total of 40 minutes on the date of the service which included preparing to see the patient, [id number] patient care, completing clinical documentation, obtaining and/or reviewing separately obtained history, and counseling and educating the patient/family/caregiver. SIGNATURE: Aga Ponce APRN.CNP PATIENT NAME: Jaycee Reed DATE: January 15, 2024 TIME: 2:29 PM PAGER/CONTACT #: documented in this encounter [facility] 01-07-2024 History of Present illness Narrative Radiology Service Progress Note DATE OF SERVICE: January 07, 2024 TIME: 12:04 PM PATIENT IDENTITY VERIFICATION COMPLETED USING TWO (2) STANDARD IDENTIFIERS: Name and Date of confirmed by patient verbally and Name and Date of confirmed by identification band. FALL SCREENING: Has the patient had 2 falls in the last year or 1 fall with injury or currently using an Ambulatory Assistive Device (Walker, Cane, Wheelchair, Crutches, etc.)? No PATIENT GENDER DATA: Female. status: : No status: NO. PATIENT RELEVANT IMPLANT DATA REVIEWED: Not Applicable PATIENT PRESENTS WITH AN IMPLANTABLE OR ATTACHED GALLERY OR MUSEUM GUIDE: No ALLERGIES: Reviewed and unchanged CONTRAST ALLERGY: NO. EXAM: MRI - CONTRAST TYPE: GROUP II PERIPHERAL IV DATA: Ambulatory: A peripheral IV was started in the Right antecubital site with a Angio cath: 22 gauge. RADIOLOGY DEPARTMENT: MR; Exam(s) Completed: Chest: Breast SIGNATURE: RT Nadya(R) PATIENT NAME: Jaycee eRed DATE: January 07, 2024 TIME: 12:04 PM documented in this encounter [facility] 12-24-2023 Miscellaneous Notes Patient was notified regarding her upcoming surgery on 01/21/24 at 10:10 am, patient to arrive at 8:00 am, presurgical testing will be on 01/15/24 at 2:20 pm virtual. Patient's question were answered. Ayanna Sandoval MA documented in this encounter [facility] 10-30-2023 History of Present illness Narrative Jaycee Reed 1980 REFERRING PHYSICIAN: No ref. provider [...] C (98.3 F), height 162.6 cm (5' 4), weight 54.2 kg (119 lb 6.4 oz), [...] core breast biopsy. To be done at [facility] breast imaging center. I have placed [...] Suzanne Salinas MD documented in this encounter [facility] 10-24-2023 Miscellaneous Notes Breast ultrasound reviewed. Biopsy recommended. Scheduled with Dr. Salinas on 11/07. Aurelia Borges APRN.STEPHEN documented in this encounter [facility] 10-23-2023 History of Present illness Narrative Radiology Service Progress Note PATIENT NAME: Jaycee Reed DATE OF SERVICE: October 23, 2023 [...] 2023 4:27 PM documented in this encounter [facility] 10-23-2023 History of Present illness Narrative Radiology Service Progress Note PATIENT NAME: Jaycee Reed DATE OF SERVICE: October 23, 2023 [...] PERIPHERAL IV DATA: Not applicable SIGNED BY: Bharti Ocasioo Mao October 23, 2023 2:07 PM documented in this encounter [facility] 10-08-2023 Miscellaneous Notes October 08, 2023 PID: [id number] Jaycee Reed [address] [place] [address] Dear Ms. Reed, Your recent breast imaging [...] who ordered/prescribed your screening mammogram: Please call [phone] or [phone]: [phone] to schedule an appointment for your additional [...] and reports are kept on file at [facility] as part of your permanent medical record, and are available for your continuing care. Thank you for allowing us to help in meeting your health care needs. Sincerely, Dr. Chew Interpreting Radiologist (Additional imaging) documented in this encounter [facility] 10-05-2023 History of Present illness Narrative Radiology Service Progress Note PATIENT NAME: Jaycee Reed DATE OF SERVICE: October 05, 2023 [...] Gregory Thompson October 05, 2023 2:20 PM documented in this encounter [facility] 08-09-2023 Instructions Ivon Parmar APRN.STEPHEN - 08/09/2023 9:11 AM EDT Docusate sodium (Colace) 100 mg twice a day or 200 mg at bedtime Can add senna at bedtime, if needed. If effective, can change to Donna-colace 2 at bedtime. Smooth Move tea as needed. documented in this encounter [facility] 08-09-2023 History of Present illness Narrative Ecotherapist offered: Patient declines. Jaycee Reed is a 43 year old female who presents for vaginal pruritis and discomfort, white thick discharge for 2 week(s). 2 days of Monistat 3 two weeks ago which decreased discharge. Boric acid after SI last WE. RepHresh last used 3 days ago. Was in [place] - ocean, River kayaking, pool, very hot [...] external genitalia normal, normal Bartholin's glands, urethra, [place]'s glands, no vulvar lesions, no cervical lesions, good vaginal support, Moderated amount thick pale yellow discharge present, normal appearing perineal body and perianal region BIMANUAL: uterus normal size, shape and consistency, no adnexal masses, and non-tender. ASSESSMENT/PLAN: 1. Acute vaginitis - ICD9: 616.10, ICD10: N76.0 (primary diagnosis) - history of recurrent yeast and BV - Follows vulvar hygiene. Recently in [place], spent time in ocean, hours in river water, pool, sweating. Is sexually active. Declines STD testing. - STACI/TRICHOMONAS NAAT - BACTERIAL VAGINOSIS NAAT - Discussed probiotic 2. Constipation, unspecified constipation type - ICD9: 564.00, ICD10: K59.00 - Docusate sodium (Colace) 100 mg twice a day or 200 mg at bedtime Can add senna at bedtime, if needed. If effective, can change to Donan-colace 2 at bedtime. Smooth Move tea as needed. Will notify of results. Follow- up as needed. Ivon Parmar APRN.CNP Medical Decision Making: Problems: Low: Acute, uncomplicated illness or injury Moderate: 1+ chronic illnesses with change Data: Unique test(s) ordered: 3+ Medical Decision Making Level: 4 - Moderate documented in this encounter [facility] 06-07-2023 Instructions Ivon Parmar APRN.CNP - 06/07/2023 12:49 PM EDT Can try using boric acid after intercourse. Using condoms would help prevent BV. When you start an antibiotic, you can try using Monistat 7 or generic - a applicator full at bedtime every other night or 1/2 applicator every night x 2 weeks. documented in this encounter [facility] 06-07-2023 History of Present illness Narrative Jaycee Reed is a 42 year old female [...] BV x 4 in past 8 months. Staci x 1. She is frustrated that she [...] L2 SAB1 IAB0 Ectopic0 Multiple0 Live Births2 Respiratory Coordinator History LMP: 04/16/2023, Having periods Age at Menarche: Age at First : Age at Menopause: Respiratory Coordinator History Comments: Sexual Activity: Yes; Male Contraception: [...] All questions answered. Follow-up as needed. Ivon Parmar APRN.CNP Medical Decision Making: Problems: Moderate: 1+ chronic illnesses with change Risk: Moderate: Drug management Medical Decision Making Level: 4 - Moderate documented in this encounter [facility] 06-06-2023 Miscellaneous Notes Would start [...] But, also wanting to ask if Dr. Gagnon has any insight on her taking both antibiotics they gave her. She is worried about getting a yeast infection. Please advise documented in this encounter [facility] 06-03-2023 Miscellaneous Notes Patient notified. Verbalized understanding. Please call patient let her know she was positive for bacterial vaginosis. Flagyl sent to pharmacy. Do not drink alcohol while taking this medication. She may continue Macrobid as well. documented in this encounter [facility] 06-02-2023 History of Present illness Narrative This note was created using indicoriter. Subjective Jaycee Reed is a 42 year old female. HPI 42-year-old female presents for UTI symptoms. Patient states she is having burning with urination, frequency, urgency for the past 2 days. States she has had a little bit of stomach upset after eating Ecuadorean a few days ago as well. She [...] Self swabs obtained. Declines STD testing. - STACI/TRICHOMONAS NAAT - BACTERIAL VAGINOSIS NAAT Diagnosis and treatment plan were discussed and questions were answered to the patient's satisfaction. Pt acknowledged understanding of concepts and follow up plan. Specific signs and symptoms that would indicate the need for higher level of care were discussed in detail warranting prompt ER evaluation. JANIE Al documented in this encounter [facility] 05-23-2023 Instructions Katherine Galindo APRN.CNP - 05/23/2023 10:03 AM EDT Will send cultures and notify of results and treatment as indicated Would recommend appointment with MOTORBOAT MECHANIC documented in this encounter [facility] 05-23-2023 History of Present illness Narrative Subjective The history is provided by the patient. No translator/interpreter was used. HPI Jaycee Reed is a 42 year old female [...] have confirmed and edited as necessary, the [facility] Review of Systems Constitutional: Negative for chills and fever. Gastrointestinal: Negative for abdominal pain. Genitourinary: Negative for dysuria, flank pain, frequency, hematuria and urgency. Vaginal discharge Objective Physical Exam Vitals and nursing note reviewed. Exam conducted with a transmitter tester present. Constitutional: Appearance: Normal appearance. Abdominal: General: [...] positive and treatment needed Follow up with MOTORBOAT MECHANIC - BACTERIAL VAGINOSIS NAAT - STACI/TRICHOMONAS NAAT Katherine Galindo APRN.SOLDERER BARREL RIBS documented in this encounter [facility] 04-01-2023 History of Present illness Narrative CC: Patient presents with: Sore Throat: X 1 day HPI: Jaycee Reed is a 42 year old female [...] occur. Patient agreeable to treatment plan. Lanie Franco APRN.STEPHEN documented in this encounter [facility] 03-20-2023 History of Present illness Narrative Radiology Service Progress Note PATIENT NAME: Jaycee Reed DATE OF SERVICE: March 20, 2023 [...] RT Ramiro(R) March 20, 2023 2:40 PM documented in this encounter [facility] 03-20-2023 History of Present illness Narrative Images from the original note were not included. Subjective Patient came in with complaints of left knuckle and finger pain of the first 2 fingers. Patient says a [employer] keyboard lid came down on her hand. Patient says this happened several days ago. Patient denies any loss of feeling in her fingers. Patient does note some swelling and some tingling at times. The history is provided by the patient. No translator/interpreter was used. Review of Systems Constitutional: Negative. [...] radiographic abnormalities seen in the left hand. Tape Cutter: GENE Transcribe Date/Time: Mar 20 2023 2:48P Dictated by : LILLY MCKEON MD Structured to rest ice and elevate alternate Tylenol Motrin and follow-up if signs and symptoms seem to getting worse not better. Patient was okay with this care plan. Lanie Franco APRN.CNP documented in this encounter [facility] 03-14-2023 Miscellaneous Notes Patient given results and verbalized understanding of instructions given. Brielle Watts Vaginal cultures are negative, negative STD testing. If still having symptoms follow up with PCP Katherine Galindo APRN.CNP documented in this encounter [facility] 03-13-2023 History of Present illness Narrative This note was created using indicoriter. Subjective Jaycee Reed is a 42 year old female. [...] VAGINOSIS AMPLIFICATION - GC/CHLAMYDIA DNA DET - STACI / TRICHOMONAS AMPLIFICATION Sharee Church PA-C documented in this encounter [facility] 02-14-2023 Miscellaneous Notes Pt was notified of the results. Pt verbalized understanding. Jaycee Willis MA Yeast trichomonas and bacterial vaginosis are all negative. If patient is persistent with symptoms she should follow-up with her MOTORBOAT MECHANIC or primary care provider thank you documented in this encounter [facility] 01-12-2023 Miscellaneous Notes Results of cultures viewed by patient on mychart ----- Message from Morenita Gagnon MD sent at 01/12/2023 8:22 AM EST ----- Notify patient that all vaginal cultures negative. documented in this encounter [facility] 12-27-2022 Instructions Linda Moreland APRN.CNM - 12/27/2022 2:31 PM EST Images [...] the embarrassing symptoms. documented in this encounter [facility] 12-27-2022 History of Present illness Narrative Gc/Ecotherapist offered: Patient declines. Jaycee Reed is a 42 year old female who presents for problem visit of continued vaginal irritation with an increase in vaginal discharge. Patient last seen in office 2 weeks ago for similar complaints. Swabs negative for infection. Patient stated she has intercourse last weekend and did not use protection and thinks she is allergic to boyfriend's seamen. Feels vaginal irritation more frequently after having unprotected intercourse. OB History T1 L2 SAB1 IAB0 Ectopic0 Multiple0 Live Births2 Respiratory Coordinator History LMP: 12/14/2022 (Approximate), Having periods Age at Menarche: Age at First : Age at Menopause: Respiratory Coordinator History Comments: Sexual Activity: Yes; Male Contraception: [...] external genitalia normal, normal Bartholin's glands, urethra, [place]'s glands, no vulvar lesions, no cervical lesions, [...] (primary diagnosis) - BACTERIAL VAGINOSIS AMPLIFICATION - STACI / TRICHOMONAS AMPLIFICATION - GC/CHLAMYDIA DNA DET 2. Vaginal irritation - ICD9: 623.9, ICD10: N89.8 Reviewed vulvar hygiene Continue probiotics daily Hand out and discussion of Clairvee- patient to order Will notify patient of results and an changes to plan of care Linda Moreland APRN.CNM documented in this encounter [facility] 12-12-2022 History of Present illness Narrative Ecotherapist offered: Patient declines. Jaycee Reed is a 42 year old female who presents for follow up visit. She was treated for bacterial vaginosis and yeast both earlier this month and would like test of cure today. Just completed 7 night Monistat 2 days ago. Denies any vaginal discharge, odor, burning, or pruritis but just feels off and irritated at times. Taking daily probiotic and using all free [...] external genitalia normal, normal Bartholin's glands, urethra, [place]'s glands, no vulvar lesions, no cervical lesions, good vaginal support, physiologic discharge present, normal appearing perineal body and perianal region NEURO: alert and oriented x3,exam grossly non-focal EXTREMITIES: normal ASSESSMENT/PLAN: 1. Vaginal irritation - ICD9: 623.9, ICD10: N89.8 - BACTERIAL VAGINOSIS AMPLIFICATION - STACI / TRICHOMONAS AMPLIFICATION - Reviewed vulvar hygiene practices Will notify patient of results and any changes to treatment plan Linda Moreland APRN.CNM documented in this encounter [facility] 11-29-2022 History of Present illness Narrative Ecotherapist offered: Patient declines. Jaycee Reed is a 42 year old female [...] external genitalia normal, normal Bartholin's glands, urethra, [place]'s glands, no vulvar lesions, no cervical lesions, good vaginal support, clear discharge present, normal appearing perineal body and perianal region BIMANUAL: uterus normal size, shape and consistency, no adnexal masses, and non-tender. ASSESSMENT/PLAN: 1. Vaginal discharge - ICD9: 623.5, ICD10: N89.8 - BACTERIAL VAGINOSIS AMPLIFICATION - STACI / TRICHOMONAS AMPLIFICATION - reviewed vulvar hygiene instructions. Will notify of results. Follow- up as needed. Ivon Parmar APRN.CNP Medical Decision Making: Problems: Low: Acute, uncomplicated illness or injury Data: Unique test(s) ordered: 2 Medical Decision Making Level: 3 - Low documented in this encounter [facility] 11-07-2022 Instructions Ivon Parmar APRN.CNP - 11/07/2022 2:14 PM EST Aquaphor Separate any probiotic from antibiotic for 1-2 hours. documented in this encounter [facility] 11-07-2022 History of Present illness Narrative Ecotherapist offered: Patient declines. Jaycee Reed is a 42 year old female [...] external genitalia normal, normal Bartholin's glands, urethra, [place]'s glands, no vulvar lesions, no cervical lesions, good vaginal support, scant amount thick pale yellow discharge present, normal appearing perineal body and perianal region BIMANUAL: uterus normal size, shape and consistency, no adnexal masses, and non-tender. ASSESSMENT/PLAN: 1. Vaginal itching - ICD9: 698.1, ICD10: N89.8 (primary diagnosis) - Declined STD testing. - BACTERIAL VAGINOSIS AMPLIFICATION - STACI / TRICHOMONAS AMPLIFICATION 2. Acute vaginitis - ICD9: 616.10, ICD10: N76.0 - LACTOBACILLUS ACIDOPHILUS AND RHAMNOSUS 15 BILLION CELL CAPSULE Will notify of results - Diflucan if appropriate. Follow- up as needed. Ivon Parmar APRN.CNP Medical Decision Making: Problems: Low: Acute, uncomplicated illness or injury Data: Unique test(s) ordered: 2 Risk: Moderate: Drug management Medical Decision Making Level: 3 - Low documented in this encounter [facility] 11-04-2022 Instructions Veronica Braswell APRN.CNP - 11/04/2022 9:20 AM EST STREP [...] inability to swallow. documented in this encounter [facility] 11-04-2022 History of Present illness Narrative This note was created using indicoriter. Subjective Jaycee Reed is a 42 year old female. 42 year old female with H tonsillectomy presents for illness. Acute onset 3 [...] Supportive care with fluids and rest Veronica Braswell APRN.STEPHEN documented in this encounter [facility] 07-17-2022 History of Present illness Narrative Jaycee Reed is a 42 year old female [...] external genitalia normal, normal Bartholin's glands, urethra, [place]'s glands, no vulvar lesions, no cervical lesions, [...] 3 - Low documented in this encounter [facility] 12-30-2014 History of Past i llness Narrative Problem Noted Date Resolved Date CMV (cytomegalovirus) [...] of this encounter (statuses as of 07/20/2022) [facility] History of Past illness Narrative* [...] of this encounter (statuses as of 11/04/2022) [facility] History of Past illness Narrative* [...] of this encounter (statuses as of 11/07/2022) [facility] History of Past illness Narrative* [...] of this encounter (statuses as of 11/29/2022) [facility] History of Past illness Narrative* [...] of this encounter (statuses as of 12/12/2022) [place] [id number] History of Past illness Narrative* Problem Noted [...] of this encounter (statuses as of 12/27/2022) [facility] History of Past illness Narrative* [...] of this encounter (statuses as of 01/12/2023) [facility] History of Past illness Narrative* [...] has a history of kidney stones in 2008. TKRN History of hypoglycemia 06/02/2014 02/06/20 Overview: [...] of this encounter (statuses as of 02/14/2023) [facility] History of Past illness Narrative* [...] of this encounter (statuses as of 03/14/2023) [facility] History of Past illness Narrative* [...] of this encounter (statuses as of 03/14/2023) [facility] History of Past illness Narrative* [...] of this encounter (statuses as of 03/21/2023) [facility] History of Past illness Narrative* [...] of this encounter (statuses as of 04/01/2023) [facility] History of Past illness Narrative* [...] of this encounter (statuses as of 05/23/2023) [facility] History of Past illness Narrative* [...] of this encounter (statuses as of 06/02/2023) [facility] History of Past illness Narrative* [...] of this encounter (statuses as of 06/03/2023) [facility] History of Past illness Narrative* [...] of this encounter (statuses as of 06/06/2023) [facility] History of Past illness Narrative* [...] of this encounter (statuses as of 06/07/2023) [facility] History of Past illness Narrative* [...] of this encounter (statuses as of 08/09/2023) [facility] History of Past illness Narrative* [...] of this encounter (statuses as of 10/06/2023) [facility] History of Past illness Narrative* [...] of this encounter (statuses as of 10/10/2023) [facility] History of Past illness Narrative* [...] of this encounter (statuses as of 10/24/2023) [facility] History of Past illness Narrative* [...] of this encounter (statuses as of 10/24/2023) [facility] History of Past illness Narrative* [...] of this encounter (statuses as of 10/24/2023) [facility] History of Past illness Narrative* [...] of this encounter (statuses as of 11/01/2023) [facility] History of Past illness Narrative* [...] as of this encounter (statuses as of 12/22/2023) [facility] History of Past illness Narrative* [...] as of this encounter (statuses as of 12/25/2023) [facility] History of Past illness Narrative* [...] as of this encounter (statuses as of 01/08/2024) [facility] History of Past illness Narrative* [...] stones in 2007. TKRN History of hypoglycemia 06/02/2014/ Overview: 06/02/2014Patient has a history of hypoglycemia. Discussed the importance of eating something every 2-3 hours. TKRN Last Assessment & Plan: Pain patient states she recently saw primary care Dr. Simons for hypoglycemia. She was started on a medication by her primary care for hypoglycemia however she cannot recall the name of the medication and she has not picked up the prescription from the pharmacy yet. I instructed her to call the nurse line when she has the medication name and the nurses can add the medication to her list. Pelvic pain in female 03/07/20132014 Chronic vaginitis [...] as of this encounter (statuses as of 01/16/2024) [facility] History of Past illness Narrative* [...] of eating something every 2-3 hours. TKRN Last Assessment & Plan: Pain patient states she recently saw primary care Dr. Simons for hypoglycemia. She was started on a medication by her primary care for hypoglycemia however she cannot recall the name of the medication and she has not picked up the prescription from the pharmacy yet. I instructed her to call the nurse line when she has the medication name and the nurses can add the medication to her list. Pelvic pain in female 03/07/20132014 Chronic vaginitis [...] as of this encounter (statuses as of 01/18/2024) [facility] History of Past illness Narrative* [...] of eating something every 2-3 hours. TKRN Last Assessment & Plan: Pain patient states she recently saw primary care Dr. Simons for hypoglycemia. She was started on a medication by her primary care for hypoglycemia however she cannot recall the name of the medication and she has not picked up the prescription from the pharmacy yet. I instructed her to call the nurse line when she has the medication name and the nurses can add the medication to her list. Pelvic pain in female 03/07/20132014 Chronic vaginitis [...] as of this encounter (statuses as of 01/28/2024) [facility] History of Past illness Narrative* [...] of eating something every 2-3 hours. TKRN Last Assessment & Plan: Pain patient states she recently saw primary care Dr. Simons for hypoglycemia. She was started on a medication by her primary care for hypoglycemia however she cannot recall the name of the medication and she has not picked up the prescription from the pharmacy yet. I instructed her to call the nurse line when she has the medication name and the nurses can add the medication to her list. Pelvic pain in female 03/07/20132014 Chronic vaginitis [...] as of this encounter (statuses as of 01/31/2024) [facility] History of Past illness Narrative* [...] of eating something every 2-3 hours. TKRN Last Assessment & Plan: Pain patient states she recently saw primary care Dr. Simons for hypoglycemia. She was started on a medication by her primary care for hypoglycemia however she cannot recall the name of the medication and she has not picked up the prescription from the pharmacy yet. I instructed her to call the nurse line when she has the medication name and the nurses can add the medication to her list. Pelvic pain in female 03/07/20132014 Chronic vaginitis [...] as of this encounter (statuses as of 02/24/2024) [facility] History of Past illness Narrative* [...] of eating something every 2-3 hours. TKRN Last Assessment & Plan: Pain patient states she recently saw primary care Dr. Simons for hypoglycemia. She was started on a medication by her primary care for hypoglycemia however she cannot recall the name of the medication and she has not picked up the prescription from the pharmacy yet. I instructed her to call the nurse line when she has the medication name and the nurses can add the medication to her list. Pelvic pain in female 03/07/20132014 Chronic vaginitis [...] as of this encounter (statuses as of 03/07/2024) [facility] History of Past illness Narrative* [...] of eating something every 2-3 hours. TKRN Last Assessment & Plan: Pain patient states she recently saw primary care Dr. Simons for hypoglycemia. She was started on a medication by her primary care for hypoglycemia however she cannot recall the name of the medication and she has not picked up the prescription from the pharmacy yet. I instructed her to call the nurse line when she has the medication name and the nurses can add the medication to her list. Pelvic pain in female 03/07/20132014 Chronic vaginitis [...] as of this encounter (statuses as of 03/07/2024) [facility] note* Diagnosis Vaginal discharge- Primary Leukorrhea, not specified as infective Vaginal irritation Unspecified noninflammatory disorder of vagina documented in this encounter [facility] noteNo assessment information availableWCleveland Clinic Work Phone: Evaluation note* Diagnosis Strep pharyngitis- Primary Streptococcal sore throat URI, acute Acute upper respiratory infections of unspecified site [facility] Diagnosis Vaginal itching- Primary Pruritus of genital organs Vaginal discharge Leukorrhea, not specified as infective [facility]* Diagnosis Vaginal discharge- Primary Leukorrhea, not specified as infective [facility]* Diagnosis Vaginal irritation- Primary Unspecified noninflammatory disorder of vagina [facility]* Diagnosis Vaginal discharge- Primary Leukorrhea, not specified as infective Vaginal irritation Unspecified noninflammatory disorder of vagina [facility] Diagnosis Vaginal discharge- Primary Leukorrhea, not specified as infective [facility]* Diagnosis Pain- Primary Generalized pain [facility]* Diagnosis Sore throat- Primary Acute pharyngitis documented in this encounter [facility] note* Diagnosis Acute vaginitis- Primary Vaginitis and vulvovaginitis, unspecified documented in this encounter [facility] note* Diagnosis Pain with urination- Primary Renal colic documented in this encounter [facility] note* Diagnosis Urinary tract infection without hematuria, site unspecified- Primary BV (bacterial vaginosis) Vaginitis and vulvovaginitis, unspecified Vagina itching Pruritus of genital organs documented in this encounter [facility] note* Diagnosis Acute vaginitis- Primary Vaginitis and vulvovaginitis, unspecified Constipation, unspecified constipation type documented in this encounter [facility] note* Diagnosis Encounter for gynecological examination (general) (routine) without abnormal findings Encounter for screening mammogram for breast cancer Extremely dense tissue of both breasts on mammography documented in this encounter [facility] note* Diagnosis Abnormal mammogram Abnormal mammogram, unspecified documented in this encounter [facility] note* Diagnosis Abnormal mammogram Abnormal mammogram, unspecified documented in this encounter [facility] note* Diagnosis Abnormal ultrasound of breast- Primary Other (abnormal) findings on radiological examination of breast documented in this encounter [facility] note* Diagnosis Abnormal findings on diagnostic imaging of breast- Primary Other (abnormal) findings on radiological examination of breast documented in this encounter [facility] note* Diagnosis Breast cancer screening, high risk patient Screening mammogram for high-risk patient Family history of BRCA2 gene positive Family history of genetic disease carrier Family history of breast cancer Family history of malignant neoplasm of breast Abnormal findings on diagnostic imaging of breast Other (abnormal) findings on radiological examination of breast documented in this encounter [facility] note* Diagnosis Abnormal findings on diagnostic imaging of breast [R92.8]- Primary Other (abnormal) findings on radiological examination of breast Hypotension, unspecified hypotension type History of hypoglycemia Personal history of other endocrine, metabolic, and immunity disorders Pre-op testing Preoperative examination, unspecified Abnormal findings on diagnostic imaging of breast Other (abnormal) findings on radiological examination of breast documented in this encounter [facility] note* Diagnosis Atypical lobular hyperplasia (ALH) of right breast- Primary Abnormal findings on diagnostic imaging of breast Other (abnormal) findings on radiological examination of breast documented in this encounter [facility] note* Diagnosis Vaginal itching- Primary Pruritus of genital organs Chronic idiopathic constipation Unspecified constipation documented in this encounter [facility] note* Diagnosis Abnormal findings on diagnostic imaging of breast- Primary Other (abnormal) findings on radiological examination of breast documented in this encounter [facility] note* Diagnosis Chronic idiopathic constipation Unspecified constipation documented in this encounter [facility] note* Diagnosis Chronic idiopathic constipation Unspecified constipation documented in this encounter [facility] note* Diagnosis Constipation, unspecified constipation type- Primary documented in this encounter [facility] note* Diagnosis Vaginal discharge- Primary Leukorrhea, not specified as infective documented in this encounter [facility] note* Diagnosis Abnormal findings on diagnostic imaging of breast [R92.8]- Primary Other (abnormal) findings on radiological examination of breast Hypotension, unspecified hypotension type History of hypoglycemia Personal history of other endocrine, metabolic, and immunity disorders Pre-op testing Preoperative examination, unspecified Vaginal discharge- Primary Leukorrhea, not specified as infective Acute vaginitis Vaginitis and vulvovaginitis, unspecified documented in this encounter [facility] note* Diagnosis Abnormal findings on diagnostic imaging of breast [R92.8]- Primary Other (abnormal) findings on radiological examination of breast Hypotension, unspecified hypotension type History of hypoglycemia Personal history of other endocrine, metabolic, and immunity disorders Pre-op testing Preoperative examination, unspecified Abnormal uterine bleeding (AUB)- Primary Pre-procedural laboratory examination Vaginal irritation Unspecified noninflammatory disorder of vagina documented in this encounter [facility] note* Diagnosis Pain Generalized pain documented in this encounter [facility] note* Diagnosis Abnormal findings on diagnostic imaging of breast [R92.8]- Primary Other (abnormal) findings on radiological examination of breast Hypotension, unspecified hypotension type History of hypoglycemia Personal history of other endocrine, metabolic, and immunity disorders Pre-op testing Preoperative examination, unspecified Pharyngitis, unspecified etiology- Primary Viral illness Unspecified viral infection, in conditions classified elsewhere and of unspecified site documented in this encounter [facility] note* Diagnosis Abnormal findings on diagnostic imaging of breast [R92.8]- Primary Other (abnormal) findings on radiological examination of breast Hypotension, unspecified hypotension type History of hypoglycemia Personal history of other endocrine, metabolic, and immunity disorders Pre-op testing Preoperative examination, unspecified Encounter for gynecological examination (general) (routine) without abnormal findings- Primary Encounter for screening mammogram for breast cancer Vaginal discharge Leukorrhea, not specified as infective Vaginal itching Pruritus of genital organs documented in this encounter [facility] note* Diagnosis Abnormal findings on diagnostic imaging of breast [R92.8]- Primary Other (abnormal) findings on radiological examination of breast Hypotension, unspecified hypotension type History of hypoglycemia Personal history of other endocrine, metabolic, and immunity disorders Pre-op testing Preoperative examination, unspecified Yeast vaginitis- Primary Candidiasis of vulva and vagina documented in this encounter [facility] note* Diagnosis Abnormal findings on diagnostic imaging of breast [R92.8]- Primary Other (abnormal) findings on radiological examination of breast Hypotension, unspecified hypotension type History of hypoglycemia Personal history of other endocrine, metabolic, and immunity disorders Pre-op testing Preoperative examination, unspecified Encounter for screening mammogram for breast cancer documented in this encounter [facility] note* Diagnosis Abnormal findings on diagnostic imaging of breast [R92.8]- Primary Other (abnormal) findings on radiological examination of breast Hypotension, unspecified hypotension type History of hypoglycemia Personal history of other endocrine, metabolic, and immunity disorders Pre-op testing Preoperative examination, unspecified Abnormal mammogram- Primary Abnormal mammogram, unspecified documented in this encounter [facility] note* Diagnosis Abnormal findings on diagnostic imaging of breast [R92.8]- Primary Other (abnormal) findings on radiological examination of breast Hypotension, unspecified hypotension type History of hypoglycemia Personal history of other endocrine, metabolic, and immunity disorders Pre-op testing Preoperative examination, unspecified Abnormal mammogram- Primary Abnormal mammogram, unspecified documented in this encounter [facility] note* Diagnosis Abnormal findings on diagnostic imaging of breast [R92.8]- Primary Other (abnormal) findings on radiological examination of breast Hypotension, unspecified hypotension type History of hypoglycemia Personal history of other endocrine, metabolic, and immunity disorders Pre-op testing Preoperative examination, unspecified Abnormal mammogram Abnormal mammogram, unspecified documented in this encounter [facility] note* Diagnosis Abnormal findings on diagnostic imaging of breast [R92.8]- Primary Other (abnormal) findings on radiological examination of breast Hypotension, unspecified hypotension type History of hypoglycemia Personal history of other endocrine, metabolic, and immunity disorders Pre-op testing Preoperative examination, unspecified Abnormal mammogram Abnormal mammogram, unspecified [facility] Diagnosis Abnormal findings on diagnostic imaging of breast [R92.8]- Primary Other (abnormal) findings on radiological examination of breast Hypotension, unspecified hypotension type History of hypoglycemia Personal history of other endocrine, metabolic, and immunity disorders Pre-op testing Preoperative examination, unspecified Abnormal mammogram Abnormal mammogram, unspecified [facility] Diagnosis Abnormal findings on diagnostic imaging of breast [R92.8]- Primary Other (abnormal) findings on radiological examination of breast Hypotension, unspecified hypotension type History of hypoglycemia Personal history of other endocrine, metabolic, and immunity disorders Pre-op testing Preoperative examination, unspecified Abnormal finding on breast imaging Other (abnormal) findings on radiological examination of breast [facility] Diagnosis Abnormal findings on diagnostic imaging of breast [R92.8]- Primary Other (abnormal) findings on radiological examination of breast Hypotension, unspecified hypotension type History of hypoglycemia Personal history of other endocrine, metabolic, and immunity disorders Pre-op testing Preoperative examination, unspecified Vaginal irritation- Primary Unspecified noninflammatory disorder of vagina Vaginal discharge Leukorrhea, not specified as infective Vaginal itching Pruritus of genital organs [facility] Diagnosis Abnormal findings on diagnostic imaging of breast [R92.8]- Primary Other (abnormal) findings on radiological examination of breast Hypotension, unspecified hypotension type History of hypoglycemia Personal history of other endocrine, metabolic, and immunity disorders Pre-op testing Preoperative examination, unspecified Abnormal mammogram- Primary Abnormal mammogram, unspecified [facility] Additional Instructions Your exam today indicates your symptoms are related to constipation and irritable bowel syndrome. Take the Linzess as directed to help reduce symptoms and you may stop the MiraLAX. Return to the ER should you have worsening symptoms or any [facility] Phone: Hospital Discharge instructions Additional Instructions Your CT scan today showed no sign of kidney stone or obvious infection or blockage within the intestines. It also did not note any type of cyst or derangement to your ovaries but with pain in the right lower quadrant please obtain the outpatient ultrasound that was ordered in order to ensure that there is no ovarian dysfunction. Please return to the ER should you have any further [facility]WC[facility] Clinic Work Phone: Reason for referral (narrative)* Diagnostic Procedure Only (Urgent) - Closed Specialty Diagnoses / Procedures Referred By Contac t Referred To Contact XR IMAGING Diagnoses Pain Procedures XR HAND GENERAL 3V PA/LAT/OBL LEFT RADEX HAND MINIMUM 3 VIEWS Lanie Franco APRN.CNP [address] [place] [address] Xr Imaging Referral ID Status Reason Start Date Expiration Date V isits Requested Visits Authorized [id number] Closed Auto-Generate d Referral 03/20/2023 04/18/2024 1 1 [facility] for referral (narrative)* Diagnostic Procedure Only (Routine) - Closed Specialty Diagnoses / Procedures Referred By Contac t Referred To Contact BR IMAGING Diagnoses Abnormal mammogram Procedures US BREAST LTD RIGHT US BREAST UNI REAL TIME WITH IMAGE LIMITED Ivon Parmar APRN.SOLDERER [employer]REL [employer]BS [address] [place] [address] [facility] [address] [place] [address] Referral ID Status Reason Start Date Expiration Date V isits Requested Visits Authorized [id number] Closed Auto-Generate d Referral 10/08/2023 11/06/2024 1 1 * Diagnostic Procedure Only (Routine) - Closed Specialty Diagnoses / Procedures Referred By Contac t Referred To Contact BR IMAGING Diagnoses Abnormal mammogram Procedures US BREAST LTD LEFT US BREAST UNI REAL TIME WITH IMAGE LIMITED Ivon Parmar APRN.[employer] [address] [place] [address] [facility] [address] [place] [address] Referral ID Status Reason Start Date Expiration Date V isits Requested Visits Authorized [id number] Closed Auto-Generate d Referral 10/08/2023 11/06/2024 1 1 [facility] for referral (narrative)* Diagnostic Procedure Only (Routine) - Pending Review Specialty Diagnoses / Procedures Referred By Contac t Referred To Contact BR IMAGING Diagnoses Abnormal ultrasound of breast Procedures US BIOPSY BREAST RIGHT BX BREAST W/DEVICE 1ST LESION ULTRASOUND Suzanne Campbell MD [address] [place] [address] [facility] [address] [place] [address] Referral ID Status Reason Start Date Expiration Date Visits Requested Visits Authorized [id number] Pending Review Auto-Generat ed Referral 3 11/28/2024 1 1 [facility] for referral (narrative)* Diagnostic Procedure Only (Urgent) - Closed Specialty Diagnoses / Procedures [facility] To Contact X[facility] IMAG[facility] Diagnoses Pain Procedures XR HAND GENERAL 3V PA/LAT/OBL LEFT RADEX HAND MINIMUM 3 VIEWS Lanie Franco APRN.[employer]DERER [employer]BS [address] [place] [address] [place] [address] Referral ID Status Reason Start Date Expiration Date V isits Requested Visits Authorized [id number] Closed Auto-Generate d Referral 03/20/2023 04/18/2024 1 1 [facility] for referral (narrative)* Diagnostic Procedure Only (Routine) - Authorized Specialty Diagnoses / Procedures [facility] Diagnoses Encounter for screening mammogram for breast cancer Procedures LOUANN SCREENING W MARIANNE SCREENING DIGITAL BREAST TOMOSYNTHESIS BI SCREENING MAMMOGRAPHY BI 2-VIEW BREAST INC Aurelia Alas APRN.[employer]DER[employer] [address] [place] [address] [facility] [address] [place] [address] Referral ID Status Reason Start Date Expiration Date Visits Requested Visits Authorized [id number] Authorized Auto-Generat ed Referral 11/07/2025 1 1 [facility] for referral (narrative)* Diagnostic Procedure Only (Routine) - Closed Specialty Diagnoses / Procedures Referred By Darryl chakraborty Referred To Contact BR IMAGING Diagnoses Encounter for screening mammogram for breast cancer Procedures LOUANN SCREENING W MARIANNE SCREENING DIGITAL BREAST TOMOSYNTHESIS BI SCREENING MAMMOGRAPHY BI 2-VIEW BREAST INC CAD Aurelia Borges APRN.[employer] [address] [place] [address] [facility] [address] [place] [address] Referral ID Status Reason Start Date Expiration Date V isits Requested Visits Authorized [id number] Closed Auto-Generate d Referral 10/08/2024 11/07/2025 1 1 [facility] for referral (narrative)* Diagnostic Procedure Only (Routine) - Authorized Specialty Diagnoses / Procedures Referred By Darryl chakraborty Referred To Contact BR IMAGING Diagnoses Abnormal mammogram Procedures LOUANN DIAGNOSTIC LEFT DIAGNOSTIC MAMMOGRAPHY COMPUTER-AIDED DETCJ UNI Aurelia Borges APRN.[employer] [address] [place] [address] [facility] [address] [place] [address] Referral ID Status Reason Start Date Expiration Date Visits Requested Visits Authorized [id number] Authorized Auto-Generat ed Referral 10/22/2024 11/21/2025 1 1 * Diagnostic Procedure Only (Routine) - Authorized Specialty Diagnoses / Procedures Referred By Darryl chakraborty Referred To Contact BR IMAGING Diagnoses Abnormal mammogram Procedures US BREAST LTD LEFT US BREAST UNI REAL TIME WITH IMAGE LIMITED Aurelia Borges APRN.CNP [address] [place] [address] [facility] [address] [place] [address] Referral ID Status Reason Start Date Expiration Date Visits Requested Visits Authorized [id number] Authorized Auto-Generat ed Referral 10/22/2024 11/21/2025 1 1 [facility] for referral (narrative)* Diagnostic Procedure Only (Routine) - Closed Specialty Diagnoses / Procedures Referred By Contac t Referred To Contact BR IMAGING Diagnoses Abnormal mammogram Procedures US BREAST LTD LEFT US BREAST UNI REAL TIME WITH IMAGE LIMITED Aurelia Borges APRN.CNP [address] [place] [address] [facility] [address] [place] [address] Referral ID Status Reason Start Date Expiration Date V isits Requested Visits Authorized [id number] Closed Auto-Generate d Referral 10/22/2024 11/21/2025 1 1 [facility] for visit Narrative* Diagnostic Procedure Only (Routine) - Closed Specialty Diagnoses / Procedures Referred By Contac t Referred To Contact BR IMAGING Diagnoses Encounter for gynecological examination (general) (routine) without abnormal findings Encounter for screening mammogram for breast cancer Extremely dense tissue of both breasts on mammography Procedures LOUANN SCREENING W MARIANNE SCREENING DIGITAL BREAST TOMOSYNTHESIS BI SCREENING MAMMOGRAPHY BI 2-VIEW BREAST INC Ivon Moore APRN.[employer] [address] [place] [address] [facility] [address] [place] [address] Referral ID Status Reason Start Date Expiration Date V isits Requested Visits Authorized [id number] Closed Auto-Generate d Referral 09/20/2023 10/19/2024 1 1 [facility] for visit Narrative* Diagnostic Procedure Only (Routine) - Closed Specialty Diagnoses / Procedures Referred By Contac t Referred To Contact BR IMAGING Diagnoses Abnormal mammogram Procedures LOUANN DIAGNOSTIC RIGHT DIAGNOSTIC MAMMOGRAPHY COMPUTER-AIDED DETCJ Anuradha Lewis APRN.[employer] [address] [place] [address] [facility] [address] [place] [address] Referral ID Status Reason Start Date Expiration Date V isits Requested Visits Authorized [id number] Closed Auto-Generate d Referral 10/15/2023 11/13/2024 1 1 [facility] for visit Narrative* Diagnostic Procedure Only (Urgent) - Closed Specialty Diagnoses / Procedures Referred By Contac t Referred To Contact XR IMAGING Diagnoses Pain Procedures XR HAND GENERAL 3V PA/LAT/OBL LEFT RADEX HAND MINIMUM 3 VIEWS Lanie Franco CONTINUOUS TOWEL ROLLER.SOLDERER [employer]BS [address] [place] [address] [place] [address] Referral ID Status Reason Start Date Expiration Date V isits Requested Visits Authorized [id number] Closed Auto-Generate d Referral 03/20/2023 04/18/2024 1 1 [facility] for visit Narrative* Diagnostic Procedure Only (Routine) - Closed Specialty Diagnoses / Procedures Referred By Contac t Referred To Contact BR IMAGING Diagnoses Encounter for screening mammogram for breast cancer Procedures LOUANN SCREENING W MARIANNE SCREENING DIGITAL BREAST TOMOSYNTHESIS BI SCREENING MAMMOGRAPHY BI 2-VIEW BREAST INC CAD Aurelia Borges, CONTINUOUS TOWEL ROLLER.[employer]ER [employer]BS [address] [place] [address] [facility] [address] [place] [address] Referral ID Status Reason Start Date Expiration Date V isits Requested Visits Authorized [id number] Closed Auto-Generate d Referral 10/08/2024 11/07/2025 1 1 [facility] for visit Narrative* Diagnostic Procedure Only (Routine) - Closed Specialty Diagnoses / Procedures Referred By Contac t Referred To Contact BR IMAGING Diagnoses Abnormal mammogram Procedures LOUANN DIAGNOSTIC LEFT DIAGNOSTIC MAMMOGRAPHY COMPUTER-AIDED DETCJ UNI Aurelia Borges, CONTINUOUS TOWEL ROLLER.SOL[employer]ER [employer]BS [address] [place] [address] [facility] [address] [place] [address] Referral ID Status Reason Start Date Expiration Date V isits Requested Visits Authorized [id number] Closed Auto-Generate d Referral 10/22/2024 11/21/2025 1 1 [facility] for visit Narrative* Diagnostic Procedure Only (Routine) - Closed Specialty Diagnoses / Procedures Referred By Contac t Referred To Contact BR IMAGING Diagnoses Abnormal mammogram Procedures LOUANN DIAGNOSTIC LEFT DIAGNOSTIC MAMMOGRAPHY COMPUTER-AIDED DETCJ JAN Aurelia Borges, CONTINUOUS TOWEL ROLLER.[employer] [address] [place] [address] Phone: tel: fax: BR IMAGING [address] [place] [address] Referral ID Status Reason Start Date Expiration Date V isits Requested Visits Authorized [id number] Closed Auto-Generate d Referral 12/03/2024 01/02/2026 1 1 [facility] for visit Narrative* Diagnostic Procedure Only (Routine) - Closed Specialty Diagnoses / Procedures Referred By Darryl chakraborty Referred To Contact BR IMAGING Diagnoses Abnormal finding on breast imaging Procedures LOUANN STEREO BX BREAST LEFT BX BREAST W/DEVICE 1ST [facility]ION STEREOTACTIC GUID Monse Govea MD 1 [facility] [place] [address] Phone: tel: fax: BR IMAGING [address] [place] [address] Referral ID Status Reason Start Date Expiration Date V isits Requested Visits Authorized [id number] Closed Auto-Generate d Referral 12/10/2024 01/09/2026 1 1 [facility] Chief Complaint and Reason for Visit Chief Complaint Lt eye blurry Chief Complaint ABD PAIN Chief Complaint ABD PAIN flank pain Chief Complaint ABD PAIN flank pain RLQ ABD PAIN Advance Directives No Advanced Directives Records Found Advance Directive Response Recorded Date/ Time Living Will No September 30 022 2:05pm Power of Certified Emergency Vehicle Technician No September 30, 2022 2:05pm Advance Directive Response Recorded Date/ Time Living Will No October 28 023 3:30am Power of Certified Emergency Vehicle Technician No October 28, 2023 3:30am Advance Directive Response Recorded Date/ Time Living Will No November 19 11:34pm Power of Certified Emergency Vehicle Technician No November 19 024 11:34pm Reason for Referral Specialty Diagnoses / Procedures Referred By Darryl t Referred To Contact MR IMAGING Diagnoses Breast cancer screening, high risk patient Family history of BRCA2 gene positive Family history of breast cancer Procedures MRI BREAST WO/W IVCON BILATERAL MRI BREAST WITHOUT&WITH CONTRAST W/CAD BILATERAL Monse Govea MD 1 [facility] [address] [place] [address] Referral ID Status Reason Start Date Expiration Date V isits Requested Visits Authorized [id number] Closed Auto-Generate d Referral 12/19/2023 02/02/2024 1 1 Specialty Diagnoses / Procedures Referred By Contac t Referred To Contact Gastroenterology Diagnoses Chronic idiopathic constipation Procedures CONSULT TO GASTROENTEROLOGY OFFICE/OUTPATIENT [facility] 60 MINUTES Aurelia Borges APRN.SOLDERER [employer] [address] [place] [address] Referral ID Status Reason Start Date Expiration Date Visits Requested Visits Authorized [id number] Authorized PCP Requested Referral 01/28/2024 01/27/2025 1 1 Specialty Diagnoses / Procedures Referred By Contac t Referred To Contact Colon and Rectal Surgery Diagnoses Chronic idiopathic constipation Procedures CONSULT TO COLO-RECTAL SURGERY OFFICE/OUTPATIENT [facility] 60 MINUTES Kenneth Wells MD, PhD [address] [address] Hattie Bedolla DO [address] [place] [address] Referral ID Status Reason Start Date Expiration Date Visits Requested Visits Authorized [id number] Authorized PCP Requested Referral 02/20/2024 02/19/2025 1 1 Specialty Diagnoses / Procedures Referred By Contac t Referred To Contact [facility] Diagnoses Chronic idiopathic constipation Procedures ADULT [place] ANORECTAL MANOMETRY ANORECTAL MANOMETRY Kenneth Wells MD, PhD [address] [facility] [address] [place] [address] [facility] [address] [place] [address] Referral ID Status Reason Start Date Expiration Date Visits Requested Visits Authorized [id number] Pending Review Auto-Generat ed Referral 02/20/2024 02/19/2025 1 1 Specialty Diagnoses / Procedures Referred By Contac t Referred To Contact [facility] Diagnoses Constipation, unspecified constipation type Procedures CONSULT TO PHYSICAL THERAPY PHYSICAL THERAPY EVALUATION [facility] 45 MINS Veronica Claros PA-C [address] [place] [address] [facility] [address] [place] [address] Referral ID Status Reason Start Date Expiration Date Visits Requested Visits Authorized [id number] Pending Review Auto-Generat ed Referral 03/06/2024 03/06/2025 1 1 Specialty Diagnoses / Procedures Referred By Contac t Referred To Contact CT IMAGING Diagnoses Abnormal uterine bleeding (AUB) Procedures CT ABD/PEL W IVCON CT ABD & PELVIS W/CONTRAST Anuradha Krishnan APRN.SOLDERER [employer]BS [address] [place] [address] [place] [address] Referral ID Status Reason Start Date Expiration Date Visits Requested Visits Authorized [id number] Additional Clinical Info Needed Auto-Generat ed Referral 08/04/2024 09/03/2025 1 1 Specialty Diagnoses / Procedures Referred By Contac t Referred To Contact General Surgery Diagnoses Abnormal mammogram Procedures CONSULT TO GENERAL SURGERY OFFICE/OUTPATIENT [facility] 60 MINUTES Aurelia Borges APRN.SOLDERER [employer] RIBS [address] [place] [address] Referral ID Status Reason Start Date Expiration Date Visits Requested Visits Authorized [id number] Authorized PCP Requested Referral 11/26/2024 11/26/2025 1 1 Summary Purpose Family History No Family History Records FoundNo Family History Records FoundNo Family History Records FoundNo Family History Records Found Additional Source Comments Source Comments (unrecognize d section and content) In the event this informatio n is protected by the Federal Confidentiality of Alcohol and Drug Abuse Patient Records regulations: The Federal rules restrict any use of the information to criminally investigate or prosecute any alcohol or drug abuse patient.[facility] event this information is protected by the Federal Confidentiality of Alcohol and Drug Abuse Patient Records regulations: The Federal rules restrict any use of the information to criminally investigate or prosecute any alcohol or drug abuse patient.[facility] the event this information is protected by the Federal Confidentiality of Alcohol and Drug Abuse Patient Records regulations: The Federal rules restrict any use of the information to criminally investigate or prosecute any alcohol or drug abuse patient.[facility] the event this information is protected by the Federal Confidentiality of Alcohol and Drug Abuse Patient Records regulations: The Federal rules restrict any use of the information to criminally investigate or prosecute any alcohol or drug abuse patient.[facility] the event this information is protected by the Federal Confidentiality of Alcohol and Drug Abuse Patient Records regulations: The Federal rules restrict any use of the information to criminally investigate or prosecute any alcohol or drug abuse patient.[facility] the event this information is protected by the Federal Confidentiality of Alcohol and Drug Abuse Patient Records regulations: The Federal rules restrict any use of the information to criminally investigate or prosecute any alcohol or drug abuse patient.[facility] the event this information is protected by the Federal Confidentiality of Alcohol and Drug Abuse Patient Records regulations: The Federal rules restrict any use of the information to criminally investigate or prosecute any alcohol or drug abuse patient.[facility] the event this information is protected by the Federal Confidentiality of Alcohol and Drug Abuse Patient Records regulations: The Federal rules restrict any use of the information to criminally investigate or prosecute any alcohol or drug abuse patient.[facility] the event this information is protected by the Federal Confidentiality of Alcohol and Drug Abuse Patient Records regulations: The Federal rules restrict any use of the information to criminally investigate or prosecute any alcohol or drug abuse patient.[facility] the event this information is protected by the Federal Confidentiality of Alcohol and Drug Abuse Patient Records regulations: The Federal rules restrict any use of the information to criminally investigate or prosecute any alcohol or drug abuse patient.[facility] the event this information is protected by the Federal Confidentiality of Alcohol and Drug Abuse Patient Records regulations: The Federal rules restrict any use of the information to criminally investigate or prosecute any alcohol or drug abuse patient.[facility] the event this information is protected by the Federal Confidentiality of Alcohol and Drug Abuse Patient Records regulations: The Federal rules restrict any use of the information to criminally investigate or prosecute any alcohol or drug abuse patient.[facility] the event this information is protected by the Federal Confidentiality of Alcohol and Drug Abuse Patient Records regulations: The Federal rules restrict any use of the information to criminally investigate or prosecute any alcohol or drug abuse patient.[facility] the event this information is protected by the Federal Confidentiality of Alcohol and Drug Abuse Patient Records regulations: The Federal rules restrict any use of the information to criminally investigate or prosecute any alcohol or drug abuse patient.[facility] the event this information is protected by the Federal Confidentiality of Alcohol and Drug Abuse Patient Records regulations: The Federal rules restrict any use of the information to criminally investigate or prosecute any alcohol or drug abuse patient.[facility] the event this information is protected by the Federal Confidentiality of Alcohol and Drug Abuse Patient Records regulations: The Federal rules restrict any use of the information to criminally investigate or prosecute any alcohol or drug abuse patient.[facility] the event this information is protected by the Federal Confidentiality of Alcohol and Drug Abuse Patient Records regulations: The Federal rules restrict any use of the information to criminally investigate or prosecute any alcohol or drug abuse patient.[facility]In the event this information is protected by the Federal Confidentiality of Alcohol and Drug Abuse Patient Records regulations: The Federal rules restrict any use of the information to criminally investigate or prosecute any alcohol or drug abuse patient.[facility] HospitalIn the event this information is protected by the Federal Confidentiality of Alcohol and Drug Abuse Patient Records regulations: The Federal rules restrict any use of the information to criminally investigate or prosecute any alcohol or drug abuse patient.[facility] HospitalIn the event this information is protected by the Federal Confidentiality of Alcohol and Drug Abuse Patient Records regulations: The Federal rules restrict any use of the information to criminally investigate or prosecute any alcohol or drug abuse patient.[facility] HospitalIn the event this information is protected by the Federal Confidentiality of Alcohol and Drug Abuse Patient Records regulations: The Federal rules restrict any use of the information to criminally investigate or prosecute any alcohol or drug abuse patient.[facility] HospitalIn the event this information is protected by the Federal Confidentiality of Alcohol and Drug Abuse Patient Records regulations: The Federal rules restrict any use of the information to criminally investigate or prosecute any alcohol or drug abuse patient.[facility] HospitalIn the event this information is protected by the Federal Confidentiality of Alcohol and Drug Abuse Patient Records regulations: The Federal rules restrict any use of the information to criminally investigate or prosecute any alcohol or drug abuse patient.[facility] HospitalIn the event this information is protected by the Federal Confidentiality of Alcohol and Drug Abuse Patient Records regulations: The Federal rules restrict any use of the information to criminally investigate or prosecute any alcohol or drug abuse patient.[facility] HospitalIn the event this information is protected by the Federal Confidentiality of Alcohol and Drug Abuse Patient Records regulations: The Federal rules restrict any use of the information to criminally investigate or prosecute any alcohol or drug abuse patient.[facility] HospitalIn the event this information is protected by the Federal Confidentiality of Alcohol and Drug Abuse Patient Records regulations: The Federal rules restrict any use of the information to criminally investigate or prosecute any alcohol or drug abuse patient.[facility] HospitalIn the event this information is protected by the Federal Confidentiality of Alcohol and Drug Abuse Patient Records regulations: The Federal rules restrict any use of the information to criminally investigate or prosecute any alcohol or drug abuse patient.[facility] HospitalIn the event this information is protected by the Federal Confidentiality of Alcohol and Drug Abuse Patient Records regulations: The Federal rules restrict any use of the information to criminally investigate or prosecute any alcohol or drug abuse patient.[facility] HospitalIn the event this information is protected by the Federal Confidentiality of Alcohol and Drug Abuse Patient Records regulations: The Federal rules restrict any use of the information to criminally investigate or prosecute any alcohol or drug abuse patient.[facility] HospitalIn the event this information is protected by the Federal Confidentiality of Alcohol and Drug Abuse Patient Records regulations: The Federal rules restrict any use of the information to criminally investigate or prosecute any alcohol or drug abuse patient.[facility] HospitalIn the event this information is protected by the Federal Confidentiality of Alcohol and Drug Abuse Patient Records regulations: The Federal rules restrict any use of the information to criminally investigate or prosecute any alcohol or drug abuse patient.[facility] HospitalIn the event this information is protected by the Federal Confidentiality of Alcohol and Drug Abuse Patient Records regulations: The Federal rules restrict any use of the information to criminally investigate or prosecute any alcohol or drug abuse patient.[facility] HospitalIn the event this information is protected by the Federal Confidentiality of Alcohol and Drug Abuse Patient Records regulations: The Federal rules restrict any use of the information to criminally investigate or prosecute any alcohol or drug abuse patient.[facility] HospitalIn the event this information is protected by the Federal Confidentiality of Alcohol and Drug Abuse Patient Records regulations: The Federal rules restrict any use of the information to criminally investigate or prosecute any alcohol or drug abuse patient.[facility] HospitalIn the event this information is protected by the Federal Confidentiality of Alcohol and Drug Abuse Patient Records regulations: The Federal rules restrict any use of the information to criminally investigate or prosecute any alcohol or drug abuse patient.[facility] HospitalIn the event this information is protected by the Federal Confidentiality of Alcohol and Drug Abuse Patient Records regulations: The Federal rules restrict any use of the information to criminally investigate or prosecute any alcohol or drug abuse patient.[facility] HospitalIn the event this information is protected by the Federal Confidentiality of Alcohol and Drug Abuse Patient Records regulations: The Federal rules restrict any use of the information to criminally investigate or prosecute any alcohol or drug abuse patient.[facility] HospitalIn the event this information is protected by the Federal Confidentiality of Alcohol and Drug Abuse Patient Records regulations: The Federal rules restrict any use of the information to criminally investigate or prosecute any alcohol or drug abuse patient.[facility] HospitalIn the event this information is protected by the Federal Confidentiality of Alcohol and Drug Abuse Patient Records regulations: The Federal rules restrict any use of the information to criminally investigate or prosecute any alcohol or drug abuse patient.[facility] HospitalIn the event this information is protected by the Federal Confidentiality of Alcohol and Drug Abuse Patient Records regulations: The Federal rules restrict any use of the information to criminally investigate or prosecute any alcohol or drug abuse patient.[facility] HospitalIn the event this information is protected by the Federal Confidentiality of Alcohol and Drug Abuse Patient Records regulations: The Federal rules restrict any use of the information to criminally investigate or prosecute any alcohol or drug abuse patient.[facility] HospitalIn the event this information is protected by the Federal Confidentiality of Alcohol and Drug Abuse Patient Records regulations: The Federal rules restrict any use of the information to criminally investigate or prosecute any alcohol or drug abuse patient.[facility] HospitalIn the event this information is protected by the Federal Confidentiality of Alcohol and Drug Abuse Patient Records regulations: The Federal rules restrict any use of the information to criminally investigate or prosecute any alcohol or drug abuse patient.[facility] HospitalIn the event this information is protected by the Federal Confidentiality of Alcohol and Drug Abuse Patient Records regulations: The Federal rules restrict any use of the information to criminally investigate or prosecute any alcohol or drug abuse patient.[facility] HospitalIn the event this information is protected by the Federal Confidentiality of Alcohol and Drug Abuse Patient Records regulations: The Federal rules restrict any use of the information to criminally investigate or prosecute any alcohol or drug abuse patient.[facility] HospitalIn the event this information is protected by the Federal Confidentiality of Alcohol and Drug Abuse Patient Records regulations: The Federal rules restrict any use of the information to criminally investigate or prosecute any alcohol or drug abuse patient.[facility] HospitalIn the event this information is protected by the Federal Confidentiality of Alcohol and Drug Abuse Patient Records regulations: The Federal rules restrict any use of the information to criminally investigate or prosecute any alcohol or drug abuse patient.[facility] HospitalIn the event this information is protected by the Federal Confidentiality of Alcohol and Drug Abuse Patient Records regulations: The Federal rules restrict any use of the information to criminally investigate or prosecute any alcohol or drug abuse patient.[facility] HospitalIn the event this information is protected by the Federal Confidentiality of Alcohol and Drug Abuse Patient Records regulations: The Federal rules restrict any use of the information to criminally investigate or prosecute any alcohol or drug abuse patient.[facility] HospitalIn the event this information is protected by the Federal Confidentiality of Alcohol and Drug Abuse Patient Records regulations: The Federal rules restrict any use of the information to criminally investigate or prosecute any alcohol or drug abuse patient.[facility] HospitalIn the event this information is protected by the Federal Confidentiality of Alcohol and Drug Abuse Patient Records regulations: The Federal rules restrict any use of the information to criminally investigate or prosecute any alcohol or drug abuse patient.[facility] HospitalIn the event this information is protected by the Federal Confidentiality of Alcohol and Drug Abuse Patient Records regulations: The Federal rules restrict any use of the information to criminally investigate or prosecute any alcohol or drug abuse patient.[facility] HospitalIn the event this information is protected by the Federal Confidentiality of Alcohol and Drug Abuse Patient Records regulations: The Federal rules restrict any use of the information to criminally investigate or prosecute any alcohol or drug abuse patient.[facility] HospitalIn the event this information is protected by the Federal Confidentiality of Alcohol and Drug Abuse Patient Records regulations: The Federal rules restrict any use of the information to criminally investigate or prosecute any alcohol or drug abuse patient.[facility] HospitalIn the event this information is protected by the Federal Confidentiality of Alcohol and Drug Abuse Patient Records regulations: The Federal rules restrict any use of the information to criminally investigate or prosecute any alcohol or drug abuse patient.[facility] HospitalIn the event this information is protected by the Federal Confidentiality of Alcohol and Drug Abuse Patient Records regulations: The Federal rules restrict any use of the information to criminally investigate or prosecute any alcohol or drug abuse patient.[facility] HospitalIn the event this information is protected by the Federal Confidentiality of Alcohol and Drug Abuse Patient Records regulations: The Federal rules restrict any use of the information to criminally investigate or prosecute any alcohol or drug abuse patient.[facility] HospitalIn the event this information is protected by the Federal Confidentiality of Alcohol and Drug Abuse Patient Records regulations: The Federal rules restrict any use of the information to criminally investigate or prosecute any alcohol or drug abuse patient.[facility] Reason for Visit (unrecogniz ed section and content) Reason Comments Vaginal Problem Reason Comments Sore Throat Sore throat x [...] when urinating, frequency urinatingStomach upset after eating Ecuadorean x days ago Reason Comments Patient Update Reason Comments Radiology US Specialty Diagnoses / Procedures Referred By Contac t Referred To Contact [facility] Diagnoses Abnormal mammogram Procedures US BREAST LTD RIGHT US BREAST UNI REAL TIME WITH IMAGE LIMITED Ivon Parmar CONTINUOUS TOWEL ROLLER.[employer] [address] [place] [address] [facility] [address] [place] [address] Referral ID Status Reason Start Date Expiration Date V isits Requested Visits Authorized [id number] Closed Auto-Generate d Referral 10/08/2023 11/06/2024 1 1 Reason Comments Consult Abnormal mammogram Reason Comments Preparations For Surgery Specialty Diagnoses / Procedures Referred By Contac t Referred To Contact [facility] Diagnoses Breast cancer screening, high risk patient Family history of BRCA2 gene positive Family history of breast cancer Procedures MRI BREAST WO/W IVCON BILATERAL MRI BREAST WITHOUT&WITH CONTRAST W/CAD BILATERAL Monse Govea MD [address] [facility] [place] [address] [place] [id number] Referral ID Status Reason Start Date Expiration Date V isits Requested Visits Authorized [id number] Closed Auto-Generate d Referral 12/19/2023 02/02/2024 1 1 Reason Comments Family History Of Cancer Reason Comments Vaginal Problem Reason Comments Post Op RT breast excisional BX Results Reason Comments Consult Specialty Diagnoses / Procedures Referred By Contac t Referred To Contact Gastroenterology Diagnoses Chronic idiopathic constipation Procedures CONSULT TO GASTROENTEROLOGY OFFICE/OUTPATIENT [facility] 60 MINUTES Aurelia Borges, CONTINUOUS TOWEL ROLLER.[employer] [address] [place] [address] Referral ID Status Reason Start Date Expiration Date V isits Requested Visits Authorized [id number] Closed PCP Requested Referral 01/28/2024 01/27/2025 1 1 Reason Comments Manometry Specialty Diagnoses / Procedures [facility] Diagnoses Chronic idiopathic constipation Procedures [facility] ANORECTAL MANOMETRY ANORECTAL MANOMETRY Kenneth Wells MD, PhD [address] [place] [address] [facility] [address] [place] [id number] Referral ID Status Reason Start Date Expiration Date V isits Requested Visits Authorized [id number] Closed Auto-Generate d Referral 02/20/2024 02/19/2025 1 1 Reason Comments Constipation Reason Comments Vaginal Problem Irritation, discharg e Reason Comments Refill Request Reason Comments Follow Up ED follow up\ Reason Comments Sore Throat Headache, fatigue, h ead congestion, achy x 2 days Reason Comments Well Woman Reason Comments Mammogram Result Call Back Reason Comments Results Reason Comments Results Reason Comments Radiology US Specialty Diagnoses / Procedures Referred By Darryl chakraborty Referred To Contact [facility] Diagnoses Abnormal mammogram Procedures US BREAST LTD LEFT US BREAST UNI REAL TIME WITH IMAGE LIMITED Aurelia Borges APRN.[employer] [address] [place] [address] [facility] [address] [place] [address] Referral ID Status Reason Start Date Expiration Date V isits Requested Visits Authorized [id number] Closed Auto-Generate d Referral 10/22/2024 11/21/2025 1 1 Reason Comments Appointment Reason Comments Medication Question Reason Onset Date Comments Results 01/16/2025 Care Teams (unrecognized sec tion and content) Yam Curer Relationship Specialty Start Date End Date Leia Simons MD PCP - General Family Practice 11/06/11 Yam Curer Relationship Specialty Start Date End Date Leia Simons MD PCP - General Family Medicine 11/06/11 Yam Curer Relationship Specialty Start Date End Date Leia Simons MD PCP - General Family Medicine 11/06/11 Yam Curer Relationship Specialty Start Date End Date Leia iSmons MD PCP - General Family Medicine 11/06/11 Yam Curer Relationship Specialty Start Date End Date Leia Simons MD PCP - General Family Medicine 11/06/11 Yam Curer Relationship Specialty Start Date End Date Leia Simons MD PCP - General Family Medicine 11/06/11 Yam Curer Relationship Specialty Start Date End Date Leia Simons MD PCP - General Family Medicine 11/06/11 Yam Curer Relationship Specialty Start Date End Date Leia Simons MD PCP - General Family Medicine 11/06/11 Yam Curer Relationship Specialty Start Date End Date Leia Simons MD PCP - General Family Medicine 11/06/11 Yam Curer Relationship Specialty Start Date End Date Leia Simons MD PCP - General Family Medicine 11/06/11 Yam Curer Relationship Specialty Start Date End Date Leia Simons MD PCP - General Family Medicine 11/06/11 Yam Curer Relationship Specialty Start Date End Date Leia Simons MD PCP - General Family Medicine 11/06/11 Yam Curer Relationship Specialty Start Date End Date Leia Simons MD PCP - General Family Medicine 11/06/11 Team Status: Active Member Role Status Dates Dr. Leia Simons MD Family Provider Active Dr. Leia Simons MD Primary Care Provider Active Team Status: Inactive Member Role Status Dates Dr. Leia Simons MD Primary Care Provide r, Attending Provider, Referring Provider Active Yam Curer Relationship Specialty Start Date End Date Leia Simons MD PCP - General Family Medicine 11/06/11 Yam Curer Relationship Specialty Start Date End Date Leia Simons MD PCP - General Family Medicine 11/06/11 Yam Curer Relationship Specialty Start Date End Date Leia Simons MD PCP - General Family Medicine 11/06/11 Yam Curer Relationship Specialty Start Date End Date Leia Simons MD PCP - General Family Medicine 11/06/11 Yam Curer Relationship Specialty Start Date End Date Leia Simons MD PCP - General Family Medicine 11/06/11 Team Status: Inactive Member Role Status Dates Dr. Leia Simons MD Primary Care Provider Active Dr. Jones Encarnacion DO Emergency Provider Active Yam Curer Relationship Specialty Start Date End Date Leia Simons MD PCP - General Family Medicine 11/06/11 Team Status: Inactive Member Role Status Dates Dr. Leia Simons MD Primary Care Provider Active Dr. Jones Encarnacion DO Attending Provider, Emergency Pr ovider Active Team Status: Inactive Member Role Status Dates Dr. Leia Simons MD Primary Care Provider Active Dr. Jones Encarnacion DO Attending Provider, Referring Pr ovider Active Yam Curer Relationship Specialty Start Date End Date Leia Simons MD PCP - General Family Medicine 11/06/11 Yam Curer Relationship Specialty Start Date End Date Leia Simons MD PCP - General Family Medicine 11/06/11 Yam Curer Relationship Specialty Start Date End Date Leia Simons MD PCP - General Family Medicine 11/06/11 Yam Curer Relationship Specialty Start Date End Date Leia Simons MD PCP - General Family Medicine 11/06/11 Yam Curer Relationship Specialty Start Date End Date Leia Simons MD PCP - General Family Medicine 11/06/11 Yam Curer Relationship Specialty Start Date End Date Leia Simons MD PCP - General Family Medicine 11/06/11 Yam Curer Relationship Specialty Start Date End Date Leia Simons MD PCP - General Family Medicine 11/06/11 Yam Curer Relationship Specialty Start Date End Date Leia Simons MD PCP - General Family Medicine 11/06/11 Yam Curer Relationship Specialty Start Date End Date Leia Simons MD PCP - General Family Medicine 11/06/11 Yam Curer Relationship Specialty Start Date End Date Leia Simons MD PCP - General Family Medicine 11/06/11 Yam Curer Relationship Specialty Start Date End Date Leia Simons MD PCP - General Family Medicine 11/06/11 Yam Curer Relationship Specialty Start Date End Date Leia Simons MD PCP - General Family Medicine 11/06/11 Yam Curer Relationship Specialty Start Date End Date Leia Simons MD PCP - General Family Medicine 11/06/11 Yam Curer Relationship Specialty Start Date End Date Leia Simons MD PCP - General Family Medicine 11/06/11 Yam Curer Relationship Specialty Start Date End Date Leia Simons MD PCP - General Family Medicine 11/06/11 Yam Curer Relationship Specialty Start Date End Date Leia Simons MD PCP - General Family Medicine 11/06/11 Yam Curer Relationship Specialty Start Date End Date Leia Simons MD PCP - General Family Medicine 11/06/11 Yam Curer Relationship Specialty Start Date End Date Leia Simons MD PCP - General Family Medicine 11/06/11 Yam Curer Relationship Specialty Start Date End Date Leia Simons MD PCP - General Family Medicine 11/06/11 Goals (unrecognized section and content) Goals may be documented in a n alternate sectionGoals may be documented in an alternate sectionGoals may be documented in an alternate sectionGoals may be documented in an alternate sectionGoals may be documented in an alternate section INFORMATION SOURCE (unrecogn ized section and content) DATE CREATED AUTHOR 01/17/2025 [facility] DATE CREATED AUTHOR AUTHOR'S ORGANIZ ATION 01/22/2025 [facility] DATE CREATED AUTHOR AUTHOR'S ORGANIZ ATION 03/01/2025 [facility] DATE CREATED AUTHOR AUTHOR'S ORGANIZ ATION 07/24/2025 [facility] RECORDS PERTAINING TO PATIENTS WHO ARE [...] BE BASED ON THE PRIMARY CLINICAL RECORDS. [facility] [employer] provides no warranty or guarantee of the accuracy or completeness of information in this document.
--- NOTE | 2025-10-14 03:41 | EX.ED.DYSGE1 ---
HPI History of Present Illness Chief Complaint: Abd Pain Informant: patient Narrative Narrative: Patient is a 45-year-old female with past medical history of IBS-C. She states because of IBS she struggles with constipation and recurrent abdominal discomfort. She states she was able to have a bowel movement today. She reports that over the last 4 to 6 hours she has had pain that is different from her IBS symptoms located mainly in the right lower quadrant. She states has been no trauma or excessive activity. She denies any dysuria or hematuria. She states has been no associated nausea or vomiting. She also denies any fevers or chills associated with this. However the pain has been persistent and it is different from her normal abdominal discomfort and with concern for potential infection she presents for evaluation [facility] Medical History IBS (irritable bowel syndrome) Anxiety Allergy/AdvReac Type Severity Reaction Status Date / Time codeine Allergy Unknown Verified 10/14/25 02:51 Family History no significant family his Surgical History History of tubal ligation History of tonsillectomy Social History household members: children Smoking Status: Former smoker alcohol intake: current alcohol intake frequency: holidays/special occasions only substance use type: does not use ROS ROS ED Constitutional Constitutional ED: Denies chills or fever(s) ENT ENT ED: Denies sore throat Cardiovascular Cardiovascular: Denies chest pain Respiratory/Chest Respiratory/Chest: Denies cough or dyspnea Gastrointestinal Gastrointestinal: Reports abdominal pain; Denies constipation, diarrhea, nausea or vomiting Genitourinary Genitourinary ED: Denies dysuria, hematuria or urinary frequency Musculoskeletal Musculoskeletal: Denies back pain or myalgias Integumentary Denies rash Neurologic Neurologic: Denies headache(s) Hematologic/Lymphatic Hematologic/Lymphatic: Denies easy bleeding or easy bruising EXAM Physical Exam Const Vital Signs: 10/14/25 02:49 Temperature 98.0 F Temperature Source Oral Pulse Rate 72 Respiratory Rate 16 Blood Pressure 118/80 Blood Pressure Mean 92 Pulse Ox 100 Oxygen Delivery Method Room Air Positive well nourished and well developed General Appearance ED: well developed; Negative for pallor HEENT Reports moist mucous membranes HEENT Narrative: Normocephalic atraumatic No tongue or lip swelling no oral lesions no airway edema or compromise No secondary findings in the posterior pharynx to suggest infection Eyes PERRL and EOMs intact bilaterally General Eye ED: Negative for scleral icterus Neck supple Neck Narrative: No nuchal rigidity or meningeal signs Resp normal respiratory effort and clear to auscultation bilaterally Cardio regular rate and regular rhythm Rate: other Other Details: Heart is regular rate and rhythm without murmurs rubs or gallops Radial and carotid pulses are equal and symmetric GI non-distended and no masses GI Narrative: Abdomen is soft and nondistended with normal active bowel sounds There is pain with palpation in the right lower quadrant over top McBurney's with faint voluntary guarding. No rigidity. No peritoneal sign. Negative rebound. 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 She has a history of IBS-C and has abdominal discomfort secondary to this but her pain is more localized along the right lower quadrant. Differential diagnosis for this is constipation versus obstruction versus intestinal abscess or colitis versus UTI versus complication versus kidney stone versus appendicitis versus ovarian cyst. Secondary to this basic labs and a urine sample were obtained with a CT scan with IV contrast. Labs revealed no leukocytosis or left shift. Lipase was only elevated by 3 points going against acute pancreatitis and liver enzyme normal going against biliary colic or acute cholecystitis. Urine sample showed no blood going against kidney stone and no signs of infection to suggest UTI/pyelonephritis. CT scan revealed no sign of appendicitis or obstruction or intestinal infection. It did note a 1.8 cm and 3 cm ovarian cyst. As the patient's vitals are stable and she reports significant improvement of her pain I have low concern that this is torsion and therefore do not feel the need for an emergent transvaginal ultrasound. The patient can follow-up with her MENTAL HEALTH THERAPIST for further evaluation and treatment options and I will give her an order form for an outpatient transvaginal ultrasound to further characterize her cystic structure. At this time however as vitals are stable and workup reveals no sign of obstructive perforation or infectious process she is otherwise safe for discharge. History & Record Review Discussion w/independent historian: Patient Lab Data Attestation: I reviewed the patient's lab results. Labs: Laboratory Results - last 24 hr 10/14/25 10/14/25 02:55 04:06 WBC 4.4 RBC 4.06 L Hgb 13.3 Hct 38.6 MCV 95.1 MCH 32.8 H MCHC 34.5 RDW Std Deviation 43.1 RDW Coeff of Darci 12.4 Plt Count 220 MPV 8.9 Immature Gran % (Auto) 0.200 Neut % (Auto) 52.2 Lymph % (Auto) 34.5 [place] % (Auto) 9.5 Eos % (Auto) 2.9 Baso % (Auto) 0.7 Absolute Neuts (auto) 2.3 Absolute Lymphs (auto) 1.53 Nucleated RBC % 0 Sodium 139 Potassium 3.6 Chloride 105 Carbon Dioxide 25.3 Anion Gap 9 BUN 13 Creatinine 0.79 Estim Creat Clear Calc 78.47 Est GFR (MDRD) Non-Af 95 BUN/Creatinine Ratio 16.4 Glucose 93 Calcium 8.6 Total Bilirubin 0.69 Direct Bilirubin 0.30 AST 17 ALT 10 Alkaline Phosphatase 40 Total Protein 6.2 Albumin 4.1 Globulin 2.1 L Lipase 78 H Serum , Qual NEGATIVE Urine Color Yellow Urine Clarity Clear Urine pH 8.0 Ur Specific [place] 1.010 Urine Protein 15 H Urine Glucose (UA) Normal Urine Ketones Negative Urine Occult Blood Negative Urine Nitrite Negative Urine Bilirubin Negative Urine Urobilinogen Normal Ur Leukocyte Esterase Negative Urine RBC 0 SEEN Urine WBC 0 SEEN Ur Squamous Epith Cells 0-5 SEEN Amorphous Sediment 2+ Urine Bacteria 2+ Urine Mucus 0 SEEN Radiography Diagnostic Testing: Clinical Impression(s) from Imaging Studies Abdomen/Pelvis CT 10/14/25 03:00 IMPRESSION: Right ovarian cyst measuring 1.8 cm. Right ovarian cyst measuring 3.2 cm. Bilateral tubal clips are noted. 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 Mild amount of free fluid is noted in the pelvis. Mild thickening of the sigmoid colon. Underdistention, spasm versus mild colitis. Moderate amount of fecal residue in the large bowels. Reading Location: [place] [address] Discharge Plan Triage Chief Complaint: Abd Pain ED Provider: Jones Encarnacion Dx/Rx/DC Orders Clinical Impression: Right ovarian cyst, Irritable bowel syndrome (IBS) Instructions: Treatment for Ovarian Cysts, ED Ovarian Cyst Stand Alone Forms: ED Work / School Excuse Other Ambulatory Orders: Transvaginal Non- (Routine) Facility: [facility] - Location: [facility] Ordered By: Dr. Jones Encarnacion Primary Care Provider: Lisandro Simons Referrals: Morenita Delgado MD [Med Staff - Active Staff, Obstetrics-Gynecology (OBGYN)] Referral Note: Right ovarian cysts Lisandro Simons MD [Primary Care Provider, Family Practice] Activity Restrictions/Additional Instructions: Your CT scan showed a 2 cm and 3 cm right ovarian cyst. This correlates with your physical exam and history. There is no signs of acute appendicitis or kidney stone or urinary tract infection. Please follow-up with your MENTAL HEALTH THERAPIST for repeat evaluation. Obtain your outpatient transvaginal ultrasound for better characterization of the cysts. Take Tylenol and or Motrin for pain control. If your pain is intractable despite taking medication you develop a fever or have any further concerns then return to the ER for repeat evaluation. Print Language: Kazakh Disposition Disposition: Home, Self Care
[2025-10-14 04:13] LABS: Mucous, Urine 0 SEEN /hpf (<or=2+); Red Blood Cells-Urine 0 SEEN /hpf (0-5)
[2025-10-14 04:14] LABS: Color, Urine Yellow (Yellow); Glucose, Dipstick Normal (Normal); Ketone-Dipstick Negative (Negative); Leukocyte Esterase-Dipstick Negative /ul (Negative); Nitrite-Dipstick Negative (Negative); Occult Blood-Urine Negative /ul (Negative); Protein-Dipstick 15 mg/dl (Negative); Specific Gravity, Urine 1.010 (1.002-1.030); Urine Bilirubin Dipstick Negative (Negative)
[2025-10-14 04:20] LABS: Squamous Epithelial Cells - UA 0-5 SEEN /hpf (5-10)
[2025-10-14 04:48] VITALS: BP 120/79; PULSE 74; RESP 16; TEMP 36.7; O2SAT 100
== END 2025-10-14 05:20 | disposition home or self-care (01) ==
PROVIDERS: Emergency Provider Emergency Medicine; PCP Family Medicine; Visit Provider Emergency Medicine
DX: N83.201 Unspecified ovarian cyst, right side (principal); K58.1 Irritable bowel syndrome with constipation; Z87.891 Personal history of nicotine dependence
CPT/HCPCS: 74177; 80048; 80076; 81001; 83690; 84703; 85025; 96361; 96374; 99283; Q9967; A4216